=== PATIENT | female | born 1975 | race American Indian/Alaskan Native ===

== ENCOUNTER 2016-07-31 15:17 | Inpatient (IN) | payer MEDICARE, OTHER ==
[2016-07-31 15:18] VITALS: BMI 13.2
[2016-07-31] MEDS ORDERED: HYDROmorphone 1 mg/ml ISec IVP STA (16:11)
[2016-07-31] MEDS ORDERED: HYDROmorphone 1 mg/ml ISec ONE (16:15)
[2016-07-31 16:19] LABS: BASO # 0.1 K/uL (0.0-0.2); BASO % 0.6 % (0.0-2.0); EOS # 0.8 K/uL (0.0-0.7); EOS % 6.5 % (0.0-4.0); HEMATOCRIT 36.4 % (34.0-47.0); LYMPH # 0.9 K/uL (1.0-4.3); LYMPH % 7.4 % (20.0-40.0); MEAN CELL VOLUME 94.6 fL (81.0-99.0); MEAN CORPUSCULAR HEMOGLOBIN 30.5 pg (27.0-31.0); MEAN CORPUSCULAR HGB CONC 32.2 g/dL (33.0-37.0); MEAN PLATELET VOLUME 9.6 fL (7.2-11.7); MONO # 0.7 K/uL (0.0-0.8); MONO % 5.8 % (0.0-10.0); PLATELET COUNT 136 K/uL (130-400); RED CELL DISTRIBUTION WIDTH 17.2 % (11.5-14.5); WHITE BLOOD COUNT 11.8 K/uL (4.8-10.8)
[2016-07-31 16:29] LABS: TOTAL PROTEIN 8.6 g/dL (6.3-8.3)
[2016-07-31 16:30] LABS: ALB/GLOB RATIO 1.1 (1.0-2.1); CALCIUM 10.2 mg/dl (8.6-10.4)
[2016-07-31 16:38] LABS: POTASSIUM 6.3 mmol/L (3.6-5.2)
[2016-07-31] MEDS ORDERED: (Novolin R) Insulin Human Regular 100 units/ml vial IV STA (16:45)
[2016-07-31] MEDS ORDERED: Dextrose 50% SYRINGE Inj (50 ml) IVP STA (16:46)
[2016-07-31] MEDS ORDERED: Sodium Bicarbonate (8.4%) 50 Meq Syringe IVP STA (16:47)
[2016-07-31 17:00] LABS: BASOPHIL 1 % (0-2); EOSINOPHIL 6 % (0-4); NEUTROPHIL 83 % (50-75); TOTAL CELLS COUNTED 100
[2016-07-31] MEDS ORDERED: (Novolin R) Insulin Human Regular 100 units/ml vial ONE (17:07)
[2016-07-31] MEDS ORDERED: Dextrose 50% SYRINGE Inj (50 ml) ONE (17:08)
[2016-07-31] MEDS ORDERED: Sodium Bicarbonate (8.4%) 50 Meq Syringe ONE ×2 (17:08)
[2016-07-31] MEDS ORDERED: Calcium Gluconate 4.65 mEq/10 ml Inj IVP STA (17:22)
--- NOTE | 2016-07-31 17:30 | C.PDOC ---
Time Seen by Provider: 07/31/16 15:56 Chief Complaint (Nursing): Abdominal Pain History Per: Patient Onset/Duration Of Symptoms: Days (3) Current Symptoms Are (Timing): Still Present Severity: Moderate Location Of Pain/Discomfort: Diffuse Quality Of Discomfort: Unable To Describe Associated Symptoms: Nausea, Vomiting, Diarrhea Alleviating Factors: None Additional History Per: Prior Records Past Medical History Reviewed: Historical Data, Nursing Documentation, Vital Signs Vital Signs: Last Vital Signs Temp 97.8 F 07/31/16 15:41 Pulse 83 07/31/16 15:41 Resp 21 07/31/16 15:41 BP 183/96 H 07/31/16 15:41 Pulse Ox 100 07/31/16 15:41 - Medical History PMH: Anemia, Depression, Diabetes, Gastritis (diabetic gastroparesis), HTN, Hypercholesterolemia, Pneumonia, End Stage Renal Disease, Chronic Kidney Disease Surgical History: Cholecystectomy - [facility] Procedures BONE BIOPSY NEC (04/07/13) CATARAC PHACOEMULS/ASPIR (09/23/14) CONTRAST ARTERIOGRAM NEC (07/17/13) CONTRAST ARTERIOGRAM-LEG (04/07/13) DIALYSIS ARTERIOVENOSTOM (04/07/13) ESOPHAGOGASTRODUODENOSCOPY [EGD] W/CLOSED BIOPSY (09/19/13) EXCIS DEBRIDE OF WOUND, INFECT, OR BURN (07/17/13) EXCISION OF STOMACH, ENDO, DIAGN (07/09/16) EXCISION OF STOMACH, PYLORUS, ENDO, DIAGN (03/14/15) EXTRACTION OF LEFT LOWER LEG SKIN, EXTERNAL APPROACH (06/16/16) HEMODIALYSIS (01/01/15) INCIS W REM OF FORIEGN BODY OR DEV FROM SKIN & SUBCUT TISSUE (05/27/13) INDIVID PSYCHOTHERAP NEC (04/20/13) INJECT/INFUSE NEC (11/09/13) INSERT LENS AT CATAR EXT (09/23/14) INSPECTION OF UPPER INTESTINAL TRACT, ENDO (03/10/16) OCCUPATIONAL THERAPY (04/30/13) OTHER GROUP THERAPY (04/20/13) OTHER SKIN & SUBQ I D (07/17/13) PERFORMANCE OF URINARY FILTRATION, MULTIPLE (07/09/16) PERFORMANCE OF URINARY FILTRATION, SINGLE (03/29/16) PHYSICAL THERAPY NEC (04/30/13) TRANSFUSE NONAUT RED BLOOD CELLS IN PERIPH VEIN, PERC (06/10/15) ULTRASONOGRAPHY OF RIGHT AND LEFT HEART, TRANSESOPHAGEAL (06/19/15) Family History: States: Diabetes - Social History Hx Tobacco Use: No Hx Alcohol Use: No Hx Substance Use: No - Immunization History Hx Tetanus Toxoid Vaccination: Yes Hx Influenza Vaccination: Yes Hx Pneumococcal Vaccination: Yes Review Of Systems Except As Marked, All Systems Reviewed And Found Negative. Constitutional: Negative for: Fever Cardiovascular: Negative for: Chest Pain Gastrointestinal: Positive for: Nausea, Vomiting, Abdominal Pain, Diarrhea Musculoskeletal: Negative for: Neck Pain Skin: Negative for: Rash Neurological: Negative for: Weakness, Numbness, Seizures Physical Exam - Physical Exam Appears: Chronically Ill, Other (Uncomfortable) Skin: Warm, Dry Head: Atraumatic Eye(s): bilateral: PERRL, EOMI Neck: Normal ROM, Supple Cardiovascular: Rhythm Regular Respiratory: Normal Breath Sounds, No Accessory Muscle Use Gastrointestinal/Abdominal: Soft, Tenderness (nonspecific), No Distention Extremity: Normal ROM Neurological/Psych: Oriented x3, Normal Motor, Normal Sensation ED Course And Treatment - Laboratory Results Result Diagrams: 07/31/16 16:15 07/31/16 16:15 Lab Interpretation: Abnormal Interpretation Of Abnormal: Renal failure with hyperkalemia. ECG: Interpreted By Me, Viewed By Me ECG Rhythm: Sinus Rhythm, Nonspecific Changes ECG Interpretation: Abnormal Rate From EC O2 Sat by Pulse Oximetry: 100 Pulse Ox Interpretation: Normal - Physician Consult Information Physician Contacted: Denisha Orellana Outcome Of Conversation: She will dialyze pt today. Progress - Interventions Interventions:: Observation - Medications Administered Intravenous: Antiemetic, Opiate, Other (Ca. D50. Insulin.) - Data Reviewed Data Reviewed: Lab, EKG, Old records - Patient Status Patient status: Partially improved - Critical Care Citical Care: Excluding Proc Time Critical Care Time: 45 minutes - Continuity of Care Discussed patient case with:: Patient, ED Nurse, PMD Discussed pt. case with desktop support consultant/specialty: Nephrology - Patient Plan Patient Plan: Admission, Telemetry Disposition Discussed With : Sal Gamez Comment: He accepted pt on his service. Doctor Will See Patient In The: Hospital Counseled Patient/Family Regarding: Studies Performed, Diagnosis - Disposition Disposition: HOSPITALIZED Disposition Time: 17:34 Condition: GUARDED - Clinical Impression Clinical Impression: ESRD needing dialysis, Generalized abdominal pain, Nausea & vomiting, Hyperkalemia
[2016-07-31] MEDS: HYDROmorphone 1 mg/ml ISec IVP PRN (22:14)
[2016-07-31] MEDS ORDERED: Dextrose 50% SYRINGE Inj (50 ml) IV STA (22:31)
[2016-08-01] MEDS: HYDROmorphone 1 mg/ml ISec IVP PRN ×5 (02:28→21:06)
[2016-08-01] MEDS: Nitroglycerin 2% Ointment Foilpak UD TOP PRN ×2 (10:11→18:25)
--- NOTE | 2016-08-01 12:04 | CP.PCM.CON ---
History of Present Illness - History of Present Illness History of Present Illness: 40 y/o female with ESRD on maintenance HD, every MWF, HTN, IDDM with retinopathy , neuropathy,gastroparesis chronic heel ulcer presented to ER last evening for c /o abdominal pain, N & V Pt had missed her scheduled dialysis because she did not feel well & came to [facility] Recieved dilysis last pm in the hospital Past Patient History - Infectious Disease Hx of Infectious Diseases: None - Past Medical History & Family History Past Medical History?: Yes - Past Social History Smoking Status: Former Smoker - CARDIAC Hx Hypercholesterolemia: Yes Hx Hypertension: Yes - PULMONARY Hx Pneumonia: Yes - HEENT Hx HEENT Problems: Yes Hx Cataracts: Yes (09/23/14 left) - RENAL Date of Last Dialysis Treatment: 07/31/16 - ENDOCRINE/METABOLIC Hx Diabetes Mellitus Type 2: Yes (neuropathy) - HEMATOLOGICAL/ONCOLOGICAL Hx Anemia: Yes - INTEGUMENTARY Hx Dermatological Problems: Yes Other/Comment: right great toe amputation - MUSCULOSKELETAL/RHEUMATOLOGICAL Hx Falls: No - GASTROINTESTINAL Hx Gastritis: Yes (diabetic gastroparesis) - GENITOURINARY/GYNECOLOGICAL Hx Genitourinary Disorders: Yes Other/Comment: renal failure - PSYCHIATRIC Hx Substance Use: No - SURGICAL HISTORY Hx Cholecystectomy: Yes - ANESTHESIA Hx Anesthesia: Yes Hx Anesthesia Reactions: No Hx Malignant Hyperthermia: No Meds Allergies/Adverse Reactions: Allergies Allergy/AdvReac Type Severity Reaction Status Date / Time ketorolac tromethamine Allergy Verified 07/31/16 15:29 [From Toradol] morphine Allergy Verified 07/31/16 15:29 tramadol Allergy Verified 07/31/16 15:29 - Medications Medications: Current Medications Carvedilol (Coreg) 12.5 mg PO BID [facility] Last Admin: 08/01/16 10:07 Dose: 12.5 mg Clonidine HCl (Catapres-Tts3 0.3 Mg/24 Hr) 1 patch TD Q7D@1000 [facility] Fentanyl (Duragesic) 1 patch TD Q72H [facility] Last Admin: 07/31/16 22:15 Dose: 1 patch Hydralazine HCl (Apresoline) 100 mg PO Q8 [facility] Last Admin: 08/01/16 06:30 Dose: 100 mg Hydromorphone HCl (Dilaudid) 1 mg IVP Q4H PRN PRN Reason: Pain, moderate (4-7) Last Admin: 08/01/16 10:43 Dose: 1 mg Metoclopramide HCl (Reglan) 5 mg IVP TIDAC [facility] Last Admin: 08/01/16 07:56 Dose: 5 mg Nitroglycerin (Nitro-Bid 2% Oint) 1 ea TOP Q6 PRN PRN Reason: Heart rate Last Admin: 08/01/16 10:11 Dose: 1 ea Ondansetron HCl (Zofran Inj) 4 mg IVP Q8 PRN PRN Reason: Nausea/Vomiting Last Admin: 08/01/16 10:10 Dose: 4 mg Pantoprazole Sodium (Protonix Inj) 40 mg IVP DAILY [facility] Last Admin: 08/01/16 10:06 Dose: 40 mg Physical Exam - Constitutional Appears: Non-toxic - Head Exam Head Exam: ATRAUMATIC, NORMOCEPHALIC - Eye Exam Additional comments: No icterus - ENT Exam ENT Exam: Mucous Membranes Dry - Neck Exam Additional comments: supple - Respiratory Exam Respiratory Exam: NORMAL BREATHING PATTERN Additional comments: Lungs clear - Cardiovascular Exam Cardiovascular Exam: REGULAR RHYTHM - GI/Abdominal Exam GI & Abdominal Exam: Soft - Extremities Exam Additional comments: No edema Results - Vital Signs Recent Vital Signs: Last Vital Signs Temp 97.6 F 08/01/16 08:00 Pulse 75 08/01/16 08:00 Resp 16 08/01/16 08:00 BP 188/95 H 08/01/16 10:07 Pulse Ox 100 08/01/16 08:00 - Labs Result Diagrams: 07/31/16 16:15 07/31/16 16:15 Labs: Laboratory Results - last 24 hr 07/31/16 07/31/16 08/01/16 22:25 23:15 07:26 POC Glucose (mg/dL) 55 L 139 H 84 08/01/16 11:39 POC Glucose (mg/dL) 100 Assessment & Plan - Assessment and Plan (Free Text) Assessment: ESRD HTN Abdominal pain IDDM Plan: Continue dialysis every MWF BP is better today
[2016-08-02] MEDS: Nitroglycerin 2% Ointment Foilpak UD TOP PRN ×3 (00:26→12:13)
[2016-08-02] MEDS: HYDROmorphone 1 mg/ml ISec IVP PRN ×6 (02:00→22:33)
--- NOTE | 2016-08-02 09:46 | RAD ---
HISTORY: PICC Line Placement COMPARISON: Comparison chest 07/17/2016. FINDINGS: LUNGS: Interval placement right-sided PICC line with tip in the SVC. . Previously noted mild venous congestion with improved. Patchy opacity in the left lung base also somewhat improved. PLEURA: No significant pleural effusion identified, no pneumothorax apparent. CARDIOVASCULAR: Heart size remains upper limits of normal/borderline enlarged. OSSEOUS STRUCTURES: No significant abnormalities. VISUALIZED UPPER ABDOMEN: Normal. OTHER FINDINGS: None. IMPRESSION: Interval placement right-sided PICC line. Improved vascular congestion. Improved left lower lobe patchy opacity.
[2016-08-02 10:55] LABS: BASO # 0.1 K/uL (0.0-0.2); LYMPH # 1.1 K/uL (1.0-4.3); MONO # 0.5 K/uL (0.0-0.8)
[2016-08-02 11:00] LABS: POTASSIUM 4.8 mmol/L (3.6-5.2)
[2016-08-02 11:02] LABS: BASO % 1.4 % (0.0-2.0); EOS # 0.8 K/uL (0.0-0.7); EOS % 12.3 % (0.0-4.0); HEMATOCRIT 34.8 % (34.0-47.0); LYMPH % 17.5 % (20.0-40.0); MEAN CELL VOLUME 94.9 fL (81.0-99.0); MEAN CORPUSCULAR HEMOGLOBIN 30.7 pg (27.0-31.0); MEAN CORPUSCULAR HGB CONC 32.3 g/dL (33.0-37.0); MEAN PLATELET VOLUME 9.5 fL (7.2-11.7); MONO % 7.2 % (0.0-10.0); NRBC % 0.3 % (0.0-2.0); WHITE BLOOD COUNT 6.3 K/uL (4.8-10.8)
[2016-08-02 11:04] LABS: CALCIUM 9.4 mg/dl (8.6-10.4)
[2016-08-02] MEDS ORDERED: Enalaprilat 2.5 MG/2 ML IV ONE ×2 (11:15)
[2016-08-02] MEDS ORDERED: Enalaprilat 2.5 MG/2 ML ONE (11:38)
--- NOTE | 2016-08-02 18:42 | CP.PCM.PN ---
Subjective - Date & Time of Evaluation Date of Evaluation: 08/02/16 Time of Evaluation: 06:40 - Subjective Subjective: Sedated. NAD noted Objective - Vital Signs/Intake and Output Vital Signs (last 24 hours): Temp Pulse Resp BP Pulse Ox 98.9 F 75 11 L 191/58 H 97 08/02/16 16:00 08/02/16 16:00 08/02/16 16:00 08/02/16 17:03 08/02/16 16:00 Intake and Output: 08/02/16 08/02/16 06:59 18:59 Intake Total 250 5 Balance 250 5 - Medications Medications: Current Medications Carvedilol (Coreg) 12.5 mg PO BID [facility] Last Admin: 08/02/16 17:03 Dose: 12.5 mg Clonidine HCl (Catapres-Tts3 0.3 Mg/24 Hr) 1 patch TD Q7D@1000 [facility] Enalaprilat (Vasotec) 1.25 mg IV Q8 [facility] Fentanyl (Duragesic) 1 patch TD Q72H [facility] Last Admin: 07/31/16 22:15 Dose: 1 patch Heparin Sodium (Porcine) (Heparin) 5,000 units SC Q8 [facility] Last Admin: 08/02/16 14:40 Dose: 5,000 units Hydralazine HCl (Apresoline) 100 mg PO Q8 [facility] Last Admin: 08/02/16 14:40 Dose: 100 mg Hydromorphone HCl (Dilaudid) 1 mg IVP Q4H PRN PRN Reason: Pain, moderate (4-7) Last Admin: 08/02/16 14:42 Dose: 1 mg Metoclopramide HCl (Reglan) 5 mg IVP TIDAC [facility] Last Admin: 08/02/16 17:02 Dose: 5 mg Nitroglycerin (Nitro-Bid 2% Oint) 1 ea TOP Q6 PRN PRN Reason: Heart rate Last Admin: 08/02/16 12:13 Dose: 1 ea Ondansetron HCl (Zofran Inj) 4 mg IVP Q8 PRN PRN Reason: Nausea/Vomiting Last Admin: 08/02/16 18:20 Dose: 4 mg Pantoprazole Sodium (Protonix Inj) 40 mg IVP DAILY [facility] Last Admin: 08/02/16 09:46 Dose: 40 mg - Labs Labs: 08/02/16 10:49 08/02/16 10:49 - Respiratory Exam Additional comments: Lungs clear - Cardiovascular Exam Cardiovascular Exam: REGULAR RHYTHM - Extremities Exam Additional comments: No edema Assessment and Plan - Assessment and Plan (Free Text) Assessment: ESRD on HD HTN. BP remains high Abdominal pain IDDM Plan: Dialysis tolerated well UF 2.5 Kg Monitor BP .on IV vasotec
[2016-08-02 20:51] LABS: AMYLASE 69 U/L (30-110)
[2016-08-02] MEDS ORDERED: Enalaprilat 2.5 MG/2 ML IV SCH (22:00)
--- NOTE | 2016-08-02 22:07 | CP.PCM.HP ---
History of Present Illness - History of Present Illness History of Present Illness: 40 y/o female with ESRD on maintenance HD, every MWF, HTN, IDDM with retinopathy , neuropathy,gastroparesis chronic heel ulcer presented to ER last evening for c /o abdominal pain, N & V Pt had missed her scheduled dialysis because she did not feel well & came to [facility] Recieved dilysis last pm in the hospital Present on Admission - Present on Admission Any Indicators Present on Admission: No Review of Systems - Review of Systems Systems not reviewed;Unavailable: Acuity of Condition - Constitutional Constitutional: Fatigue, Lethargy, Malaise - EENT Eyes: absent: As Per HPI, Blind Spots, Blurred Vision, Change in Vision, Decreased Night Vision, Diplopia, Discharge, Dry Eye, Exophthalmos, Floaters, Irritation, Itchy Eyes, Loss of Peripheral Vision, Pain, Photophobia, Requires Corrective Lenses, Sees Flashes, Spots in Vision, Tunnel Vision, Other Visual Disturbances, Loss of Vision, Other - Cardiovascular Cardiovascular: absent: As Per HPI, Acrocyanosis, Chest Pain, Chest Pain at Rest , Chest Pain with Activity, Claudication, Diaphoresis, Dyspnea, Dyspnea on Exertion, Edema, Irregular Heart Rhythm, Pain Radiating to Arm/Neck/Jaw, Leg Edema, Leg Ulcers, Lightheadedness, Orthopnea, Palpitations, Paroxysmal Nocturnal Dyspnea, Pedal Edema, Radiating Pain, Rapid Heart Rate, Slow Heart Rate, Syncope, Other - Respiratory Respiratory: absent: As Per HPI, Cough, Dyspnea, Hemoptysis, Dyspnea on Exertion , Wheezing, Snoring, Stridor, Pain on Inspiration, Chest Congestion, Excessive Mucous Production, Change in Mucous Color, Pain with Coughing, Other - Gastrointestinal Gastrointestinal: Abdominal Pain, Nausea, Vomiting - Genitourinary Genitourinary: absent: As Per HPI, Change in Urinary Stream, Difficulty Urinating, Dysuria, Flank Pain, Hematuria, Pyuria, Nocturia, Urinary Incontinence, Urinary Frequency, Urinary Hesitance, Urinary Urgency, Voiding Freq/Small Amts, Freq UTI, Hx Renal/Bladder Calculi, Hx /Renal Surgery, Bladder Distension, Other Additional comments: on hemodialysis due to ESRD - Musculoskeletal Musculoskeletal: Abnormal Gait, Back Pain, Stiffness Past Patient History - Infectious Disease Hx of Infectious Diseases: None - Past Medical History & Family History Past Medical History?: Yes - Past Social History Smoking Status: Former Smoker - CARDIAC Hx Hypercholesterolemia: Yes Hx Hypertension: Yes - PULMONARY Hx Pneumonia: Yes - HEENT Hx HEENT Problems: Yes Hx Cataracts: Yes (09/23/14 left) - RENAL Date of Last Dialysis Treatment: 07/31/16 - ENDOCRINE/METABOLIC Hx Diabetes Mellitus Type 2: Yes (neuropathy) - HEMATOLOGICAL/ONCOLOGICAL Hx Anemia: Yes - INTEGUMENTARY Hx Dermatological Problems: Yes Other/Comment: right great toe amputation - MUSCULOSKELETAL/RHEUMATOLOGICAL Hx Falls: No - GASTROINTESTINAL Hx Gastritis: Yes (diabetic gastroparesis) - GENITOURINARY/GYNECOLOGICAL Hx Genitourinary Disorders: Yes Other/Comment: renal failure - PSYCHIATRIC Hx Substance Use: No - SURGICAL HISTORY Hx Cholecystectomy: Yes - ANESTHESIA Hx Anesthesia: Yes Hx Anesthesia Reactions: No Hx Malignant Hyperthermia: No Meds Home Medications: Home Medication List Medication Instructions Recorded Confirmed Type DiphenhydrAMINE [Benadryl] 25 mg PO Q8 PRN #30 cap 08/09/16 08/14/16 Rx Allergies/Adverse Reactions: Allergies Allergy/AdvReac Type Severity Reaction Status Date / Time ketorolac tromethamine Allergy Verified 08/14/16 20:21 [From Toradol] morphine Allergy Verified 08/14/16 20:21 tramadol Allergy Verified 08/14/16 20:21 Physical Exam - Constitutional Appears: No Acute Distress, Chronically Ill - Head Exam Head Exam: ATRAUMATIC, NORMAL INSPECTION, NORMOCEPHALIC - Eye Exam Eye Exam: EOMI, Normal appearance, PERRL Pupil Exam: NORMAL ACCOMODATION, PERRL - Respiratory Exam Respiratory Exam: Clear to Auscultation Bilateral, NORMAL BREATHING PATTERN - Cardiovascular Exam Cardiovascular Exam: REGULAR RHYTHM - GI/Abdominal Exam GI & Abdominal Exam: Normal Bowel Sounds, Soft, Tenderness Results - Vital Signs Recent Vital Signs: Last Vital Signs Temp 98.9 F 08/02/16 16:00 Pulse 76 08/02/16 19:00 Resp 12 08/02/16 19:00 BP 172/54 H 08/02/16 19:00 Pulse Ox 97 08/02/16 19:00 - Labs Result Diagrams: 08/09/16 10:02 08/09/16 10:02 Labs: Laboratory Results - last 24 hr 08/02/16 08/02/16 08/02/16 07:25 08:37 10:49 WBC 6.3 RBC 3.67 L Hgb 11.3 Hct 34.8 MCV 94.9 MCH 30.7 MCHC 32.3 L RDW 17.0 H Plt Count 102 L D MPV 9.5 Neut % (Auto) 61.6 Lymph % (Auto) 17.5 L [place] % (Auto) 7.2 Eos % (Auto) 12.3 H Baso % (Auto) 1.4 Neut # 3.9 Lymph # 1.1 [place] # 0.5 Eos # 0.8 H Baso # 0.1 Differential Comment Sodium 137 Potassium 4.8 Chloride 95 L Carbon Dioxide 27 Anion Gap 20 BUN 33 H Creatinine 7.4 H* Est GFR ( Amer) 7 Est GFR (Non-Af Amer) 6 POC Glucose (mg/dL) 60 L 94 Random Glucose 90 Calcium 9.4 Amylase Lipase 08/02/16 08/02/16 08/02/16 12:02 16:08 17:52 WBC RBC Hgb Hct MCV MCH MCHC RDW Plt Count MPV Neut % (Auto) Lymph % (Auto) [place] % (Auto) Eos % (Auto) Baso % (Auto) Neut # Lymph # [place] # Eos # Baso # Differential Comment Sodium Potassium Chloride Carbon Dioxide Anion Gap BUN Creatinine Est GFR ( Amer) Est GFR (Non-Af Amer) POC Glucose (mg/dL) 80 67 77 Random Glucose Calcium Amylase Lipase 08/02/16 08/02/16 20:36 21:14 WBC RBC Hgb Hct MCV MCH MCHC RDW Plt Count MPV Neut % (Auto) Lymph % (Auto) [place] % (Auto) Eos % (Auto) Baso % (Auto) Neut # Lymph # [place] # Eos # Baso # Differential Comment Sodium Potassium Chloride Carbon Dioxide Anion Gap BUN Creatinine Est GFR ( Amer) Est GFR (Non-Af Amer) POC Glucose (mg/dL) 62 L Random Glucose Calcium Amylase 69 Lipase 25 Assessment & Plan (1) Abdominal pain Status: Acute (2) ESRD needing dialysis Status: Acute (3) Nausea Status: Acute (4) Diabetes Status: Chronic (5) Diabetic gastroparesis Status: Resolved (6) Uncontrolled hypertension Status: Resolved (7) Diabetic foot ulcer Status: Acute - Assessment and Plan (Free Text) Plan: pt blood sugars and B.P are fluctuating,for PICC line, Iv fluids, protonix, reglan On HD
--- NOTE | 2016-08-02 22:12 | CP.PCM.PN ---
Subjective - Date & Time of Evaluation Date of Evaluation: 08/02/16 Time of Evaluation: 13:42 - Subjective Subjective: Pt seen and examined, still c/o being nauseous , denies any cough, chest pain, sore throat, pt blood sugars and B.P are fluctuating,for PICC line, Iv fluids, protonix, reglan On HD Objective - Vital Signs/Intake and Output Vital Signs (last 24 hours): Temp Pulse Resp BP Pulse Ox 98.9 F 76 12 172/54 H 97 08/02/16 16:00 08/02/16 19:00 08/02/16 19:00 08/02/16 19:00 08/02/16 19:00 Intake and Output: 08/02/16 08/03/16 18:59 06:59 Intake Total 125 Output Total 100 Balance 25 - Medications Medications: Current Medications Carvedilol (Coreg) 12.5 mg PO BID [facility] Last Admin: 08/02/16 17:03 Dose: 12.5 mg Clonidine HCl (Catapres-Tts3 0.3 Mg/24 Hr) 1 patch TD Q7D@1000 [facility] Enalaprilat (Vasotec) 2.5 mg IV Q6 [facility] Fentanyl (Duragesic) 1 patch TD Q72H [facility] Last Admin: 07/31/16 22:15 Dose: 1 patch Heparin Sodium (Porcine) (Heparin) 5,000 units SC Q8 [facility] Last Admin: 08/02/16 14:40 Dose: 5,000 units Hydralazine HCl (Apresoline) 100 mg PO Q8 [facility] Last Admin: 08/02/16 14:40 Dose: 100 mg Hydromorphone HCl (Dilaudid) 1 mg IVP Q4H PRN PRN Reason: Pain, moderate (4-7) Last Admin: 08/02/16 18:46 Dose: 1 mg Metoclopramide HCl (Reglan) 5 mg IVP TIDAC [facility] Last Admin: 08/02/16 17:02 Dose: 5 mg Nitroglycerin (Nitro-Bid 2% Oint) 1 ea TOP Q6 PRN PRN Reason: Heart rate Last Admin: 08/02/16 12:13 Dose: 1 ea Ondansetron HCl (Zofran Inj) 4 mg IVP Q4 PRN PRN Reason: Nausea/Vomiting Pantoprazole Sodium (Protonix Inj) 40 mg IVP DAILY [facility] Last Admin: 08/02/16 09:46 Dose: 40 mg - Labs Labs: 08/02/16 10:49 08/02/16 10:49 - Constitutional Appears: No Acute Distress - Head Exam Head Exam: ATRAUMATIC, NORMAL INSPECTION, NORMOCEPHALIC - Eye Exam Eye Exam: EOMI, Normal appearance, PERRL Pupil Exam: NORMAL ACCOMODATION, PERRL - Respiratory Exam Respiratory Exam: Clear to Ausculation Bilateral, NORMAL BREATHING PATTERN - Cardiovascular Exam Cardiovascular Exam: REGULAR RHYTHM, +S1, +S2. absent: Murmur - Neurological Exam Neurological Exam: Alert, Awake, CN II-XII Intact, Normal Gait, Oriented x3 - Psychiatric Exam Psychiatric exam: Normal Affect, Normal Mood Assessment and Plan (1) Abdominal pain Status: Acute (2) ESRD needing dialysis Status: Acute (3) Nausea Status: Acute (4) Diabetes Status: Chronic (5) Diabetic gastroparesis Status: Resolved (6) Chronic ulcer of left foot Status: Acute - Assessment and Plan (Free Text) Plan: pt blood sugars and B.P are fluctuating,for PICC line, Iv fluids, protonix, reglan On HD
[2016-08-03] MEDS: Enalaprilat 2.5 MG/2 ML IV SCH ×4 (00:52→17:38)
[2016-08-03] MEDS: HYDROmorphone 1 mg/ml ISec IVP PRN ×5 (02:48→19:52)
[2016-08-03] MEDS: Nitroglycerin 2% Ointment Foilpak UD TOP PRN ×2 (08:34→15:20)
[2016-08-03] MEDS ORDERED: HYDROmorphone 1 mg/ml ISec IVP STA (09:02)
--- NOTE | 2016-08-03 09:14 | PN ---
DATE: 08/03/2016 LOCATION: ICU 16. This is a 40-year-old female seen and examined for GI consultation on 08/02/16 as reported and reques donte by the admitting medical team. The patient is fully examined again today with episode of abdomin al pain and recurrent nausea and vomiting, not controlled well with Zofran 4 mg IV. No reported active bleeding at this point. The entire chart is reviewed, including but not limited to the most recent lab and radiology study re sults, current and the previous medication list, current and the previous medical events, and the rudi e was discussed at length with the staff in the intensive care unit. Most recent blood glucose level reported to be 71, and the patient still has normal hemoglobin and hematocrit, but thrombocytopenia of 102 with increased BUN to 33 and increased creatinine 7.4 compatible with the patient's known hist ory of renal failure. Initial reported lipase and amylase levels were normal. Chest CAT scan yesterday done - indicative of PICC line in place with decreased vascular congestion, as well as improvement of the left lower lobe patchy opacity. PHYSICAL EXAMINATION: GENERAL: A 40-year-old female, awake, alert, oriented. VITAL SIGNS: Afebrile with pulse of 80, respiratory rate 18-20 with blood pressure of 200/58. HEENT: Showed pale, dry mucoid membrane. Nonicteric sclerae. LUNGS: Few scattered crepitations, decreased air entry at bases. HEART: Positive S1 and S2. ABDOMEN: Soft with slight distention and generalized tenderness. No mass or organomegaly. No rebou nd tenderness or guarding. EXTREMITIES: With mild lower extremities edematous changes. No clubbing or cyanosis. NEUROLOGIC: No reported new neurologic deficits, sensory or motor. IMPRESSION: 1. Reexacerbation of peptic ulcer disease with evidence of diabetic gastroparesis. 2. Poorly controlled hypertension. 3. Known history of hyperlipidemia, diabetes mellitus, and depression, as well as anxiety syndrome. 4. Pneumonia by recent history. 5. Known history of end-stage renal disease on hemodialysis. 6. Thrombocytopenia of unclear etiology that could be related to heparin intake during hemodialysis. SUGGESTION: 1. I agree with your plan. 2. Abdominal ultrasound with attention to the biliary tree and the pancreas. 3. Reglan IV. Increase the dose up to even 20 mg IV push q. 6 hours as needed. Otherwise, adding e rythromycin IV should be kept in mind. 4. It has to be mentioned that the patient recently had upper endoscopy, and no need for repeat endo scopic evaluation of the GI tract in the meantime. Case is to be discussed with the admitting MD. Colleen Peraza MD cc: 14 TT: 08/03/2016 09:13:47 Confirmation # [id number] Dictation # [id number]
--- NOTE | 2016-08-03 11:54 | CP.PCM.PN ---
Subjective - Date & Time of Evaluation Date of Evaluation: 08/03/16 Time of Evaluation: 11:30 - Subjective Subjective: Sedated No acute distress Objective - Vital Signs/Intake and Output Vital Signs (last 24 hours): Temp Pulse Resp BP Pulse Ox 97.5 F L 79 15 194/57 H 100 08/03/16 08:00 08/03/16 08:00 08/03/16 08:00 08/03/16 10:05 08/03/16 08:00 Intake and Output: 08/03/16 08/03/16 06:59 18:59 Intake Total 360 Output Total 50 Balance 310 - Medications Medications: Current Medications Carvedilol (Coreg) 12.5 mg PO BID [facility] Last Admin: 08/03/16 10:05 Dose: 12.5 mg Clonidine HCl (Catapres-Tts3 0.3 Mg/24 Hr) 1 patch TD Q7D@1000 [facility] Enalaprilat (Vasotec) 2.5 mg IV Q6 [facility] Last Admin: 08/03/16 06:36 Dose: 2.5 mg Fentanyl (Duragesic) 1 patch TD Q72H [facility] Last Admin: 07/31/16 22:15 Dose: 1 patch Heparin Sodium (Porcine) (Heparin) 5,000 units SC Q8 [facility] Last Admin: 08/03/16 06:38 Dose: 5,000 units Hydralazine HCl (Apresoline) 100 mg PO Q8 [facility] Last Admin: 08/03/16 06:38 Dose: 100 mg Hydromorphone HCl (Dilaudid) 1 mg IVP Q4H PRN PRN Reason: Pain, moderate (4-7) Last Admin: 08/03/16 06:37 Dose: 1 mg Metoclopramide HCl (Reglan) 10 mg IVP ACHS [facility] Nitroglycerin (Nitro-Bid 2% Oint) 1 ea TOP Q6 PRN PRN Reason: Heart rate Last Admin: 08/03/16 08:34 Dose: 1 ea Ondansetron HCl (Zofran Inj) 4 mg IVP Q4 PRN PRN Reason: Nausea/Vomiting Last Admin: 08/03/16 06:37 Dose: 4 mg Pantoprazole Sodium (Protonix Inj) 40 mg IVP DAILY [facility] Last Admin: 08/03/16 10:06 Dose: 40 mg - Labs Labs: 08/02/16 10:49 08/02/16 10:49 - Respiratory Exam Additional comments: Lungs clear - Cardiovascular Exam Cardiovascular Exam: REGULAR RHYTHM - Extremities Exam Additional comments: No edema Assessment and Plan - Assessment and Plan (Free Text) Assessment: ESRD HTN Abdominal pain IDDM Plan: BP remains high . Continue Vasotec 2.5 mg iv Continue Hd per schedule Labs stable
[2016-08-03] MEDS ORDERED: Dextrose 50% SYRINGE Inj (50 ml) ONE ×2 (11:58→14:00)
[2016-08-03] MEDS ORDERED: Dextrose 50% SYRINGE Inj (50 ml) IV STA (12:03)
--- NOTE | 2016-08-03 12:26 | CP.PCM.PN ---
Subjective - Date & Time of Evaluation Date of Evaluation: 08/03/16 Time of Evaluation: 12:00 - Subjective Subjective: Pt seen today, still vomiting an d feeling nauseous, and c/o abdominal pain , unable to tolerate liquid diet episodes of hypoglycemia noted BP uncontrolled Objective - Vital Signs/Intake and Output Vital Signs (last 24 hours): Temp Pulse Resp BP Pulse Ox 97.5 F L 79 15 192/135 H 100 08/03/16 08:00 08/03/16 08:00 08/03/16 08:00 08/03/16 12:01 08/03/16 08:00 Intake and Output: 08/03/16 08/03/16 06:59 18:59 Intake Total 360 Output Total 50 Balance 310 - Medications Medications: Current Medications Carvedilol (Coreg) 12.5 mg PO BID [facility] Last Admin: 08/03/16 10:05 Dose: 12.5 mg Clonidine HCl (Catapres-Tts3 0.3 Mg/24 Hr) 1 patch TD Q7D@1000 [facility] Enalaprilat (Vasotec) 2.5 mg IV Q6 [facility] Last Admin: 08/03/16 12:01 Dose: 2.5 mg Fentanyl (Duragesic) 1 patch TD Q72H [facility] Last Admin: 07/31/16 22:15 Dose: 1 patch Heparin Sodium (Porcine) (Heparin) 5,000 units SC Q8 [facility] Last Admin: 08/03/16 06:38 Dose: 5,000 units Hydralazine HCl (Apresoline) 10 mg IVP Q8 [facility] Hydromorphone HCl (Dilaudid) 1 mg IVP Q4H PRN PRN Reason: Pain, moderate (4-7) Last Admin: 08/03/16 12:01 Dose: 1 mg Dextrose (Dextrose 5% In Water 1000 Ml) 1,000 mls @ 30 mls/hr IV .Q24H [facility] Metoclopramide HCl (Reglan) 10 mg IVP ACHS [facility] Last Admin: 08/03/16 12:01 Dose: 10 mg Nitroglycerin (Nitro-Bid 2% Oint) 1 ea TOP Q6 PRN PRN Reason: Heart rate Last Admin: 08/03/16 08:34 Dose: 1 ea Ondansetron HCl (Zofran Inj) 4 mg IVP Q4 PRN PRN Reason: Nausea/Vomiting Last Admin: 08/03/16 06:37 Dose: 4 mg Pantoprazole Sodium (Protonix Inj) 40 mg IVP DAILY [facility] Last Admin: 08/03/16 10:06 Dose: 40 mg - Labs Labs: 08/02/16 10:49 08/02/16 10:49 Assessment and Plan - Assessment and Plan (Free Text) Assessment: A/P 40 yr old female admitted for intractable vomiting bs - fluctuating - multiple hypoglycemic episodes noted BP - uncontrolled will administer hydralizine 10 mg iv push now and convert po hydralazine to iv IVF WITH D5W STARTED at 50 ml/hr ( ok with Dr. Orellana ) to prevent hypoglycemic events will do CT head D/W Dr. Peraza, recommends to incr. Regaln dose atc The above plan discussed with Dr. Gamez
--- NOTE | 2016-08-03 14:24 | CT ---
PROCEDURE: CT HEAD WITHOUT CONTRAST. HISTORY: persistant vomiting and high Bp COMPARISON: None available. TECHNIQUE: Axial computed tomography images were obtained through the head/brain without intravenous contrast. Radiation dose: Total exam DLP = 1128 mGy-cm. FINDINGS: HEMORRHAGE: No intracranial hemorrhage. BRAIN: No mass effect or edema. Minimal chronic microvascular changes are seen. There is mild atrophy VENTRICLES: Unremarkable. No hydrocephalus. CALVARIUM: Unremarkable. PARANASAL SINUSES: Unremarkable as visualized. No significant inflammatory changes. MASTOID AIR CELLS: Unremarkable as visualized. No inflammatory changes. OTHER FINDINGS: None. IMPRESSION: No acute findings
--- NOTE | 2016-08-03 19:51 | CARD ---
APPROVED REPORT EKG Measurement Heart [id number] KS [id number] [id number] <Conclusion> Normal sinus rhythm Possible Left atrial enlargement Left axis deviation Pulmonary disease pattern Abnormal ECG
[2016-08-04] MEDS: Enalaprilat 2.5 MG/2 ML IV SCH ×4 (00:09→17:23)
[2016-08-04] MEDS: HYDROmorphone 1 mg/ml ISec IVP PRN ×5 (00:10→21:30)
[2016-08-04] MEDS: Nitroglycerin 2% Ointment Foilpak UD TOP PRN (07:38)
--- NOTE | 2016-08-04 11:24 | PN ---
DATE: 08/04/2016 LOCATION: 665, bed A. This is a 40-year-old female seen and examined in rounds without significant clinical changes, but ho wever, less abdominal pain and less episodes of complete vomiting but spitting her saliva out. No re ported active bleeding. The entire chart is reviewed including, but not limited to, the most recent lab and radiology study r esults, current and previous medication lists, current and the previous medical events with the lates t blood glucose level of 82. Case discussed at length with the staff on the floor. The patient is o ut of ICU with increased BUN and creatinine due to her renal failure. The patient had CAT scan of the head due to her clinical presentation indicative of no acute finding. PHYSICAL EXAMINATION: GENERAL: A 40-year-old female, awake, alert, oriented. VITAL SIGNS: Afebrile with pulse of 70, respiratory rate 20-22 with blood pressure of 190/72. HEENT: Showed pale, dry oral mucoid membrane. Nonicteric sclerae. LUNGS: A few scattered crepitations. Decreased air entry at bases. HEART: Positive S1 and S2. ABDOMEN: Soft with mild distention and mild generalized tenderness. No mass or organomegaly. No re bound tenderness or guarding. RECTAL: Positive tone. Vault is empty. EXTREMITIES: Without significant clubbing or cyanosis, but with edematous changes in the lower extre mities. NEUROLOGIC: No new reported neurological deficits, sensory or motor. IMPRESSION: 1. Reexacerbation of peptic ulcer disease. 2. Diabetic gastroparesis. 3. Renal failure. 4. Poorly controlled hypertension. 5. Known history of hyperlipidemia, depression, severe anxiety syndrome, pneumonia, recent history o f pneumonia. 6. End-stage renal disease, on hemodialysis. 7. Thrombocytopenia by recent history. SUGGESTION: 1. Continue current management. 2. Increase the dose of Reglan. 3. May start erythromycin IV. 4. The patient may need evaluation for possible pancreatic transplant. Colleen Peraza MD cc: 14 TT: 08/04/2016 11:23:33 Confirmation # [id number] Dictation # [id number]
--- NOTE | 2016-08-04 13:13 | CP.PCM.PN ---
Subjective - Date & Time of Evaluation Date of Evaluation: 08/04/16 Time of Evaluation: 10:00 - Subjective Subjective: Receiving dialysis Predialysis BP was 201/68 Stillvomiting Objective - Vital Signs/Intake and Output Vital Signs (last 24 hours): Temp Pulse Resp BP Pulse Ox 98 F 76 18 180/65 H 100 08/04/16 09:15 08/04/16 12:00 08/04/16 09:15 08/04/16 12:00 08/04/16 09:15 Intake and Output: 08/04/16 08/04/16 06:59 18:59 Intake Total 240 Balance 240 - Medications Medications: Current Medications Carvedilol (Coreg) 12.5 mg PO BID [facility] Last Admin: 08/03/16 17:39 Dose: 12.5 mg Clonidine HCl (Catapres-Tts3 0.3 Mg/24 Hr) 1 patch TD Q7D@1000 [facility] Enalaprilat (Vasotec) 2.5 mg IV Q6 [facility] Last Admin: 08/04/16 06:22 Dose: 2.5 mg Fentanyl (Duragesic) 1 patch TD Q72H [facility] Last Admin: 08/03/16 17:39 Dose: 1 patch Heparin Sodium (Porcine) (Heparin) 5,000 units SC Q8 [facility] Last Admin: 08/04/16 06:22 Dose: 5,000 units Hydralazine HCl (Apresoline) 10 mg IVP Q8 [facility] Last Admin: 08/04/16 06:23 Dose: 10 mg Hydromorphone HCl (Dilaudid) 1 mg IVP Q4H PRN PRN Reason: Pain, moderate (4-7) Last Admin: 08/04/16 04:18 Dose: 1 mg Dextrose (Dextrose 5% In Water 1000 Ml) 1,000 mls @ 30 mls/hr IV .Q24H [facility] Last Admin: 08/03/16 14:05 Dose: 30 mls/hr Metoclopramide HCl (Reglan) 10 mg IVP ACHS [facility] Last Admin: 08/04/16 07:35 Dose: 10 mg Nitroglycerin (Nitro-Bid 2% Oint) 1 ea TOP Q6 PRN PRN Reason: Heart rate Last Admin: 08/04/16 07:38 Dose: 1 ea Ondansetron HCl (Zofran Inj) 4 mg IVP Q4 PRN PRN Reason: Nausea/Vomiting Last Admin: 08/03/16 17:38 Dose: 4 mg Pantoprazole Sodium (Protonix Inj) 40 mg IVP DAILY [facility] Last Admin: 08/03/16 10:06 Dose: 40 mg - Labs Labs: 08/02/16 10:49 08/02/16 10:49 - Respiratory Exam Respiratory Exam: NORMAL BREATHING PATTERN - Cardiovascular Exam Cardiovascular Exam: REGULAR RHYTHM Assessment and Plan - Assessment and Plan (Free Text) Assessment: ESRD on HD Abdominal pain with N&V HTN currently managed with IV hydralazine,IV vasotec & nitropaste IDDM Plan: Continue HD per schedule UF as tolerated Monitor BP CT of head is negative
--- NOTE | 2016-08-04 23:45 | CP.PCM.PN ---
Subjective - Date & Time of Evaluation Date of Evaluation: 08/03/16 Time of Evaluation: 13:44 - Subjective Subjective: Pt seen today, still vomiting an d feeling nauseous, and c/o abdominal pain , unable to tolerate liquid diet episodes of hypoglycemia noted BP uncontrolled Objective - Vital Signs/Intake and Output Vital Signs (last 24 hours): Temp Pulse Resp BP Pulse Ox 99.3 F 79 20 156/78 H 100 08/04/16 16:00 08/04/16 16:00 08/04/16 16:00 08/04/16 17:23 08/04/16 16:00 - Medications Medications: Current Medications Carvedilol (Coreg) 12.5 mg PO BID [facility] Last Admin: 08/04/16 17:22 Dose: 12.5 mg Clonidine HCl (Catapres-Tts3 0.3 Mg/24 Hr) 1 patch TD Q7D@1000 [facility] Enalaprilat (Vasotec) 2.5 mg IV Q6 [facility] Last Admin: 08/04/16 17:23 Dose: 2.5 mg Fentanyl (Duragesic) 1 patch TD Q72H [facility] Last Admin: 08/03/16 17:39 Dose: 1 patch Heparin Sodium (Porcine) (Heparin) 5,000 units SC Q8 [facility] Last Admin: 08/04/16 21:31 Dose: 5,000 units Hydralazine HCl (Apresoline) 10 mg IVP Q8 [facility] Last Admin: 08/04/16 21:32 Dose: 10 mg Hydromorphone HCl (Dilaudid) 1 mg IVP Q4H PRN PRN Reason: Pain, moderate (4-7) Last Admin: 08/04/16 21:30 Dose: 1 mg Dextrose (Dextrose 5% In Water 1000 Ml) 1,000 mls @ 30 mls/hr IV .Q24H [facility] Last Admin: 08/03/16 14:05 Dose: 30 mls/hr Metoclopramide HCl (Reglan) 10 mg IVP ACHS [facility] Last Admin: 08/04/16 21:38 Dose: 10 mg Nitroglycerin (Nitro-Bid 2% Oint) 1 ea TOP Q6 PRN PRN Reason: Heart rate Last Admin: 08/04/16 07:38 Dose: 1 ea Ondansetron HCl (Zofran Inj) 4 mg IVP Q4 PRN PRN Reason: Nausea/Vomiting Last Admin: 08/03/16 17:38 Dose: 4 mg Pantoprazole Sodium (Protonix Inj) 40 mg IVP DAILY [facility] Last Admin: 08/04/16 13:21 Dose: 40 mg - Labs Labs: 08/02/16 10:49 08/02/16 10:49 - Constitutional Appears: No Acute Distress, Chronically Ill - Head Exam Head Exam: ATRAUMATIC, NORMAL INSPECTION, NORMOCEPHALIC - Eye Exam Eye Exam: EOMI, Normal appearance, PERRL Pupil Exam: NORMAL ACCOMODATION, PERRL - ENT Exam ENT Exam: Mucous Membranes Moist, Normal Exam - Respiratory Exam Respiratory Exam: Clear to Ausculation Bilateral, NORMAL BREATHING PATTERN - Cardiovascular Exam Cardiovascular Exam: REGULAR RHYTHM, +S1, +S2. absent: Murmur - GI/Abdominal Exam GI & Abdominal Exam: Tenderness, Normal Bowel Sounds Assessment and Plan (1) Abdominal pain Status: Acute (2) ESRD needing dialysis Status: Acute (3) Nausea Status: Acute (4) Diabetes Status: Chronic (5) Diabetic gastroparesis Status: Resolved (6) Uncontrolled hypertension Status: Resolved (7) Diabetic foot ulcer Status: Acute - Assessment and Plan (Free Text) Plan: continue current medications
--- NOTE | 2016-08-04 23:47 | CP.PCM.PN ---
Subjective - Date & Time of Evaluation Date of Evaluation: 08/04/16 Time of Evaluation: 13:44 - Subjective Subjective: Pt continues to have perssitant nausea, vomitting and abdominla discormfort in epigastric area despite reglan and liquid diet, pt denies any improvement, B.P still high Objective - Vital Signs/Intake and Output Vital Signs (last 24 hours): Temp Pulse Resp BP Pulse Ox 99.3 F 79 20 156/78 H 100 08/04/16 16:00 08/04/16 16:00 08/04/16 16:00 08/04/16 17:23 08/04/16 16:00 - Medications Medications: Current Medications Carvedilol (Coreg) 12.5 mg PO BID [facility] Last Admin: 08/04/16 17:22 Dose: 12.5 mg Clonidine HCl (Catapres-Tts3 0.3 Mg/24 Hr) 1 patch TD Q7D@1000 [facility] Enalaprilat (Vasotec) 2.5 mg IV Q6 [facility] Last Admin: 08/04/16 17:23 Dose: 2.5 mg Fentanyl (Duragesic) 1 patch TD Q72H [facility] Last Admin: 08/03/16 17:39 Dose: 1 patch Heparin Sodium (Porcine) (Heparin) 5,000 units SC Q8 [facility] Last Admin: 08/04/16 21:31 Dose: 5,000 units Hydralazine HCl (Apresoline) 10 mg IVP Q8 [facility] Last Admin: 08/04/16 21:32 Dose: 10 mg Hydromorphone HCl (Dilaudid) 1 mg IVP Q4H PRN PRN Reason: Pain, moderate (4-7) Last Admin: 08/04/16 21:30 Dose: 1 mg Dextrose (Dextrose 5% In Water 1000 Ml) 1,000 mls @ 30 mls/hr IV .Q24H [facility] Last Admin: 08/03/16 14:05 Dose: 30 mls/hr Metoclopramide HCl (Reglan) 10 mg IVP ACHS [facility] Last Admin: 08/04/16 21:38 Dose: 10 mg Nitroglycerin (Nitro-Bid 2% Oint) 1 ea TOP Q6 PRN PRN Reason: Heart rate Last Admin: 08/04/16 07:38 Dose: 1 ea Ondansetron HCl (Zofran Inj) 4 mg IVP Q4 PRN PRN Reason: Nausea/Vomiting Last Admin: 08/03/16 17:38 Dose: 4 mg Pantoprazole Sodium (Protonix Inj) 40 mg IVP DAILY [facility] Last Admin: 08/04/16 13:21 Dose: 40 mg - Labs Labs: 08/02/16 10:49 08/02/16 10:49 - Constitutional Appears: No Acute Distress, Chronically Ill - Head Exam Head Exam: ATRAUMATIC, NORMAL INSPECTION, NORMOCEPHALIC - Eye Exam Eye Exam: EOMI, Normal appearance, PERRL Pupil Exam: NORMAL ACCOMODATION, PERRL - Respiratory Exam Respiratory Exam: Clear to Ausculation Bilateral, NORMAL BREATHING PATTERN - Cardiovascular Exam Cardiovascular Exam: REGULAR RHYTHM, +S1, +S2. absent: Murmur - GI/Abdominal Exam GI & Abdominal Exam: Tenderness, Normal Bowel Sounds Assessment and Plan (1) Abdominal pain Status: Acute (2) ESRD needing dialysis Status: Acute (3) Nausea Status: Acute (4) Diabetes Status: Chronic (5) Diabetic gastroparesis Status: Resolved (6) Uncontrolled hypertension Status: Resolved (7) Diabetic foot ulcer Status: Acute
[2016-08-05] MEDS: Enalaprilat 2.5 MG/2 ML IV SCH ×4 (00:41→18:34)
[2016-08-05] MEDS: HYDROmorphone 1 mg/ml ISec IVP PRN ×5 (02:39→21:39)
--- NOTE | 2016-08-05 09:20 | CP.PCM.PN ---
Subjective - Date & Time of Evaluation Date of Evaluation: 08/05/16 Time of Evaluation: 09:00 - Subjective Subjective: Sedated No sob Objective - Vital Signs/Intake and Output Vital Signs (last 24 hours): Temp Pulse Resp BP Pulse Ox 98.1 F 76 20 176/81 H 100 08/05/16 07:41 08/05/16 07:48 08/05/16 07:41 08/05/16 09:16 08/05/16 07:41 Intake and Output: 08/05/16 08/05/16 06:59 18:59 Intake Total 340 Balance 340 - Medications Medications: Current Medications Carvedilol (Coreg) 12.5 mg PO BID [facility] Last Admin: 08/05/16 09:16 Dose: 12.5 mg Clonidine HCl (Catapres-Tts3 0.3 Mg/24 Hr) 1 patch TD Q7D@1000 [facility] Enalaprilat (Vasotec) 2.5 mg IV Q6 [facility] Last Admin: 08/05/16 05:49 Dose: 2.5 mg Fentanyl (Duragesic) 1 patch TD Q72H [facility] Last Admin: 08/03/16 17:39 Dose: 1 patch Heparin Sodium (Porcine) (Heparin) 5,000 units SC Q8 [facility] Last Admin: 08/05/16 05:48 Dose: 5,000 units Hydralazine HCl (Apresoline) 10 mg IVP Q8 [facility] Last Admin: 08/05/16 05:48 Dose: 10 mg Hydromorphone HCl (Dilaudid) 1 mg IVP Q4H PRN PRN Reason: Pain, moderate (4-7) Last Admin: 08/05/16 07:04 Dose: 1 mg Dextrose (Dextrose 5% In Water 1000 Ml) 1,000 mls @ 30 mls/hr IV .Q24H [facility] Last Admin: 08/05/16 00:21 Dose: 30 mls/hr Metoclopramide HCl (Reglan) 10 mg IVP ACHS [facility] Last Admin: 08/05/16 07:36 Dose: 10 mg Nitroglycerin (Nitro-Bid 2% Oint) 1 ea TOP Q6 PRN PRN Reason: Heart rate Last Admin: 08/04/16 07:38 Dose: 1 ea Ondansetron HCl (Zofran Inj) 4 mg IVP Q4 PRN PRN Reason: Nausea/Vomiting Last Admin: 08/03/16 17:38 Dose: 4 mg Pantoprazole Sodium (Protonix Inj) 40 mg IVP DAILY [facility] Last Admin: 08/05/16 09:16 Dose: 40 mg - Labs Labs: 08/02/16 10:49 08/02/16 10:49 - Respiratory Exam Respiratory Exam: NORMAL BREATHING PATTERN Additional comments: Lungs clear - Cardiovascular Exam Cardiovascular Exam: REGULAR RHYTHM - Extremities Exam Additional comments: No edema Assessment and Plan - Assessment and Plan (Free Text) Assessment: ESRD on HD HTNBlood pressures are improved Abd pain, N&V IDDM Plan: Continue HD per schedule Monitor BP
[2016-08-05] MEDS ORDERED: Dextrose 50% SYRINGE Inj (50 ml) IV STA (12:00)
--- NOTE | 2016-08-05 12:09 | PN ---
DATE: 08/05/2016 LOCATION: 665, bed A. This 40-year-old female seen and examined in rounds, without significant clinical changes or reported active bleeding, but with intermittent periods of abdominal pain with nausea and dyspepsia on and of f, less than before. It has to be mentioned that the patient had been refusing oral intake recently. The entire chart is reviewed, including but not limited to the most recent lab and radiology study results, current and p revious medication list, current and the previous medical events. Case discussed with the staff at [facility]. Most recent lab results showed blood glucose level of 73 and the patient normal CBC wit h increased BUN and creatinine, on hemodialysis. PHYSICAL EXAMINATION: GENERAL: A 40-year-old female, awake, alert, oriented. VITAL SIGNS: Afebrile with pulse of 72, respiratory rate 20-22, blood pressure 170/86. HEENT: Showed pale, dry, oral mucoid membrane. Nonicteric sclerae. LUNGS: Few scattered crepitation, decreased air entry at bases. HEART: Positive S1 and S2. ABDOMEN: Soft. Bowel sounds are present with mild generalized . No mass or organomegaly. No rebound tenderness or guarding. RECTAL: The patient refused. EXTREMITIES: With mild lower extremities edematous changes. No clubbing or cyanosis. NEUROLOGIC: No added neurological deficits, sensory or motor. IMPRESSION: 1. Reexacerbation of peptic ulcer disease. 2. Diabetes mellitus. 3. Diabetic gastroparesis. 4. Poorly controlled hypertension. 5. End-stage renal disease, on hemodialysis. 6. Reported diabetic foot ulceration by history. 7. Known history of hyperlipidemia, depression, severe anxiety syndrome. 8. Recent history of pneumonia. 9. Thrombocytosis by recent history. SUGGESTION: 1. Continue current management. 2. Increase the dose of Reglan. 3. Start the patient on erythromycin IV in the meantime. Colleen Peraza MD cc: 14 TT: 08/05/2016 12:08:58 Confirmation # [id number] Dictation # [id number]
[2016-08-06] MEDS: Enalaprilat 2.5 MG/2 ML IV SCH ×5 (00:54→23:52)
[2016-08-06] MEDS: HYDROmorphone 1 mg/ml ISec IVP PRN ×5 (03:09→20:18)
--- NOTE | 2016-08-06 10:06 | PN ---
DATE: 08/06/2016 LOCATION: 665, bed A. This is a 40-year-old female seen and examined at rounds with a complaint of nausea, spitting small a mount of saliva with intermittent periods of abdominal pain and dyspepsia, but no actual vomiting. N o chest pain or palpitation, and no reported complaint of shortness of breath. No reported active bl eeding. The entire chart is reviewed, including but not limited to the most recent lab and radiology study results, current and the previous medication list, current and the previous medical events, al lergies to medication list, as well as all the available current and the previous medical records. C ase discussed with the staff at length. LABORATORY DATA: Most recent lab results show blood glucose level of 70 with increased BUN and creat inine, but normal calcium and low platelet count of 102. PHYSICAL EXAMINATION: GENERAL: A 40-year-old female. VITAL SIGNS: Afebrile with pulse of 80, respiratory rate 20-22, blood pressure 170/74. HEENT: Showed pale, dry oral mucoid membrane. Nonicteric sclerae. LUNGS: Few scattered crepitations, decreased air entry at bases. HEART: Positive S1 and S2. ABDOMEN: Soft. Bowel sounds are present with generalized mild tenderness. No mass or organomegaly. No rebound tenderness or guarding. EXTREMITIES: Without significant clubbing or cyanosis, but with slight lower extremity edematous ayesha nges. NEUROLOGIC: No new reported neurological deficits, sensory or motor. IMPRESSION: 1. Reexacerbation of peptic ulcer disease. 2. Diabetes mellitus, somewhat poorly controlled. 3. Diabetic gastroparesis. 4. End-stage renal disease, on dialysis. 5. Poorly-controlled hypertension. 6. Recent history of pneumonia. 7. Thrombocytopenia by recent history of unclear etiology. 8. Known history of anxiety syndrome, depression. 9. History of hyperlipidemia. SUGGESTION: 1. Increase ____ the Reglan up to 20 mg IV push q. 6 hours only as needed. 2. Continue erythromycin IV for the following and total of 7 days. 3. Repeat abdominal ultrasound if the patient's symptoms persist. 4. Further recommendations to follow. Colleen Peraza MD cc: 14 TT: 08/06/2016 10:05:54 Confirmation # [id number] Dictation # [id number]
[2016-08-06] MEDS: Nitroglycerin 2% Ointment Foilpak UD TOP PRN (10:15)
--- NOTE | 2016-08-06 12:48 | CP.PCM.PN ---
Subjective - Date & Time of Evaluation Date of Evaluation: 08/06/16 Time of Evaluation: 12:20 - Subjective Subjective: Sedated Does not answer questions Objective - Vital Signs/Intake and Output Vital Signs (last 24 hours): Temp Pulse Resp BP Pulse Ox 99.3 F 85 20 182/90 H 100 08/06/16 07:47 08/06/16 07:47 08/06/16 07:47 08/06/16 10:14 08/06/16 07:47 Intake and Output: 08/06/16 08/06/16 06:59 18:59 Intake Total 440 Balance 440 - Medications Medications: Current Medications Carvedilol (Coreg) 12.5 mg PO BID [facility] Last Admin: 08/06/16 10:14 Dose: 12.5 mg Clonidine HCl (Catapres-Tts3 0.3 Mg/24 Hr) 1 patch TD Q7D@1000 [facility] Enalaprilat (Vasotec) 2.5 mg IV Q6 [facility] Last Admin: 08/06/16 05:40 Dose: 2.5 mg Fentanyl (Duragesic) 1 patch TD Q72H [facility] Last Admin: 08/03/16 17:39 Dose: 1 patch Heparin Sodium (Porcine) (Heparin) 5,000 units SC Q8 [facility] Last Admin: 08/06/16 05:41 Dose: 5,000 units Hydralazine HCl (Apresoline) 10 mg IVP Q8 [facility] Last Admin: 08/06/16 05:39 Dose: 10 mg Hydromorphone HCl (Dilaudid) 1 mg IVP Q4H PRN PRN Reason: Pain, moderate (4-7) Last Admin: 08/06/16 11:18 Dose: 1 mg Dextrose (Dextrose 5% In Water 1000 Ml) 1,000 mls @ 30 mls/hr IV .Q24H [facility] Last Admin: 08/06/16 12:30 Dose: 30 mls/hr Erythromycin 500 mg/ Sodium (Chloride) 100 mls @ 100 mls/hr IVPB Q6H [facility] Last Admin: 08/06/16 12:35 Dose: 100 mls/hr Metoclopramide HCl (Reglan) 15 mg IVP ACHS [facility] Last Admin: 08/06/16 11:27 Dose: 15 mg Nitroglycerin (Nitro-Bid 2% Oint) 1 ea TOP Q6 PRN PRN Reason: Heart rate Last Admin: 08/06/16 10:15 Dose: 1 ea Pantoprazole Sodium (Protonix Inj) 40 mg IVP DAILY [facility] Last Admin: 08/06/16 10:00 Dose: 40 mg - Labs Labs: 08/02/16 10:49 08/02/16 10:49 - Respiratory Exam Respiratory Exam: NORMAL BREATHING PATTERN - Extremities Exam Additional comments: No edema Assessment and Plan - Assessment and Plan (Free Text) Assessment: ESRD HTH Abdominal pain IDDM Plan: Hemodialysis MWF Monitor BP.
--- NOTE | 2016-08-06 23:58 | CP.PCM.PN ---
Subjective - Date & Time of Evaluation Date of Evaluation: 08/06/16 Time of Evaluation: 09:53 - Subjective Subjective: Pt seen & examined at bedside, is improving, decreased nausea, vomitting abdominal pain, we shall pt on solid diet Objective - Vital Signs/Intake and Output Vital Signs (last 24 hours): Temp Pulse Resp BP Pulse Ox 98.2 F 76 20 191/83 H 95 08/06/16 16:05 08/06/16 16:05 08/06/16 16:05 08/06/16 23:52 08/06/16 16:05 Intake and Output: 08/06/16 08/07/16 18:59 06:59 Intake Total 580 Balance 580 - Medications Medications: Current Medications Carvedilol (Coreg) 12.5 mg PO BID [facility] Last Admin: 08/06/16 18:14 Dose: 12.5 mg Clonidine HCl (Catapres-Tts3 0.3 Mg/24 Hr) 1 patch TD Q7D@1000 [facility] Enalaprilat (Vasotec) 2.5 mg IV Q6 [facility] Last Admin: 08/06/16 23:52 Dose: 2.5 mg Fentanyl (Duragesic) 1 patch TD Q72H [facility] Last Admin: 08/06/16 18:25 Dose: 1 patch Hydralazine HCl (Apresoline) 10 mg IVP Q8 [facility] Last Admin: 08/06/16 22:21 Dose: 10 mg Hydromorphone HCl (Dilaudid) 1 mg IVP Q4H PRN PRN Reason: Pain, moderate (4-7) Last Admin: 08/06/16 20:18 Dose: 1 mg Erythromycin 500 mg/ Sodium (Chloride) 100 mls @ 100 mls/hr IVPB Q6H [facility] Last Admin: 08/06/16 18:14 Dose: 100 mls/hr Metoclopramide HCl (Reglan) 15 mg IVP ACHS [facility] Last Admin: 08/06/16 22:19 Dose: 15 mg Nitroglycerin (Nitro-Bid 2% Oint) 1 ea TOP Q6 PRN PRN Reason: Heart rate Last Admin: 08/06/16 10:15 Dose: 1 ea Pantoprazole Sodium (Protonix Ec Tab) 40 mg PO DAILY [facility] - Labs Labs: 08/02/16 10:49 08/02/16 10:49 - Constitutional Appears: No Acute Distress - Head Exam Head Exam: ATRAUMATIC, NORMAL INSPECTION, NORMOCEPHALIC - Eye Exam Eye Exam: EOMI, Normal appearance, PERRL Pupil Exam: NORMAL ACCOMODATION, PERRL - Respiratory Exam Respiratory Exam: Clear to Ausculation Bilateral, NORMAL BREATHING PATTERN - Cardiovascular Exam Cardiovascular Exam: REGULAR RHYTHM, +S1, +S2. absent: Murmur - GI/Abdominal Exam GI & Abdominal Exam: Soft, Normal Bowel Sounds. absent: Tenderness Assessment and Plan (1) Abdominal pain Status: Acute (2) Diabetic foot ulcer Status: Acute (3) Nausea Status: Acute (4) Diabetic gastroparesis Status: Resolved (5) Uncontrolled hypertension Status: Resolved (6) ESRD needing dialysis Status: Acute (7) Diabetes Status: Chronic - Assessment and Plan (Free Text) Plan: proceed diet, pain medications, antiemetics, B.P control
[2016-08-07] MEDS: HYDROmorphone 1 mg/ml ISec IVP PRN ×4 (00:50→14:32)
[2016-08-07] MEDS: Enalaprilat 2.5 MG/2 ML IV SCH ×4 (05:45→23:55)
[2016-08-07] MEDS ORDERED: Dextrose 50% SYRINGE Inj (50 ml) IV STA ×2 (07:11→12:48)
[2016-08-07 09:49] LABS: HEMATOCRIT 37.1 % (34.0-47.0); MEAN CELL VOLUME 93.6 fL (81.0-99.0); MEAN CORPUSCULAR HEMOGLOBIN 30.2 pg (27.0-31.0); MEAN CORPUSCULAR HGB CONC 32.2 g/dL (33.0-37.0); MEAN PLATELET VOLUME 8.3 fL (7.2-11.7); WHITE BLOOD COUNT 6.7 K/uL (4.8-10.8)
[2016-08-07 10:04] LABS: POTASSIUM 3.9 mmol/L (3.6-5.2)
[2016-08-07 10:06] LABS: ALB/GLOB RATIO 1.3 (1.0-2.1); BILIRUBIN,TOTAL 0.6 mg/dL (0.2-1.3); PHOSPHOROUS 6.4 mg/dL (2.5-4.5); TOTAL PROTEIN 7.4 g/dL (6.3-8.3)
[2016-08-07 10:07] LABS: CALCIUM 9.2 mg/dl (8.6-10.4)
--- NOTE | 2016-08-07 11:10 | PN ---
DATE: 08/07/2016 LOCATION: 665, bed A. This is a 40-year-old female seen and examined in rounds without significant clinical changes. No re ported active bleeding. No nausea or vomiting, but only occasional nausea with dyspepsia, with small amount of saliva. The entire chart is reviewed, including but not limited to the most recent lab an d radiology study results, current and the previous medication list, current and the previous medical events. LABORATORY DATA: The patient's white blood cells are 6.7 with normal hemoglobin and hematocrit, as w ell as normal platelet count with BUN of 27, creatinine 9.4 with phosphorus elevated to 6.4. Case discussed at length with the staff on the floor. PHYSICAL EXAMINATION: GENERAL: A 40-year-old female, awake, alert, oriented, tolerating some oral intake. VITAL SIGNS: Temperature of 99.2, pulse 84, respiratory rate 20-22 with blood pressure of 176/74. HEENT: Showed dry oral mucoid membrane. Nonicteric sclerae. LUNGS: Few scattered crepitations. Decreased air entry at bases. HEART: Positive S1 and S2. ABDOMEN: Soft. Bowel sounds are present. No mass or organomegaly. No rebound tenderness or guardi ng. EXTREMITIES: With slight lower extremity edematous changes. No clubbing or cyanosis. NEUROLOGIC: No new reported neurological deficits, sensory or motor. IMPRESSION: 1. Peptic ulcer disease. 2. Diabetes mellitus. 3. Diabetic gastroparesis. 4. Poorly-controlled hypertension. 5. Recent history of pneumonia. 6. End-stage renal disease, on hemodialysis. 7. Known history of depression with severe anxiety syndrome. 8. Known history of hyperlipidemia. SUGGESTION: 1. Continue current management. 2. Repeat serum lipase and amylase level. 3. No need for aggressive GI workup. In the meantime, the patient had upper endoscopy recently. Colleen Peraza MD cc: 14 TT: 08/07/2016 11:09:27 Confirmation # [id number] Dictation # [id number]
--- NOTE | 2016-08-07 11:16 | CP.PCM.PN ---
Subjective - Date & Time of Evaluation Date of Evaluation: 08/07/16 Time of Evaluation: 10:25 - Subjective Subjective: Seen on dialysis BP 136/70 Objective - Vital Signs/Intake and Output Vital Signs (last 24 hours): Temp Pulse Resp BP Pulse Ox 99.2 F 80 20 171/78 H 100 08/07/16 08:37 08/07/16 08:37 08/07/16 08:37 08/07/16 08:37 08/07/16 08:37 Intake and Output: 08/07/16 08/07/16 06:59 18:59 Intake Total 580 Balance 580 - Medications Medications: Current Medications Carvedilol (Coreg) 12.5 mg PO BID [facility] Last Admin: 08/06/16 18:14 Dose: 12.5 mg Clonidine HCl (Catapres-Tts3 0.3 Mg/24 Hr) 1 patch TD Q7D@1000 [facility] Enalaprilat (Vasotec) 2.5 mg IV Q6 [facility] Last Admin: 08/07/16 05:45 Dose: 2.5 mg Hydralazine HCl (Apresoline) 10 mg IVP Q8 [facility] Last Admin: 08/07/16 06:19 Dose: 10 mg Hydromorphone HCl (Dilaudid) 1 mg IVP Q4H PRN PRN Reason: Pain, severe (8-10) Last Admin: 08/07/16 09:37 Dose: 1 mg Erythromycin 500 mg/ Sodium (Chloride) 100 mls @ 100 mls/hr IVPB Q6H [facility] Last Admin: 08/07/16 07:00 Dose: 100 mls/hr Metoclopramide HCl (Reglan) 15 mg IVP ACHS [facility] Last Admin: 08/07/16 08:55 Dose: 15 mg Nitroglycerin (Nitro-Bid 2% Oint) 1 ea TOP Q6 PRN PRN Reason: Heart rate Last Admin: 08/06/16 10:15 Dose: 1 ea Pantoprazole Sodium (Protonix Ec Tab) 40 mg PO DAILY [facility] - Labs Labs: 08/07/16 09:42 08/07/16 09:42 - Respiratory Exam Respiratory Exam: NORMAL BREATHING PATTERN - Cardiovascular Exam Cardiovascular Exam: REGULAR RHYTHM - Extremities Exam Additional comments: No edema Assessment and Plan - Assessment and Plan (Free Text) Assessment: ESRD on HD HTN Abdominal pain IDDM Plan: Stable on dialysis UF 3 Kg tolerating well.
[2016-08-07] MEDS: Nitroglycerin 2% Ointment Foilpak UD TOP PRN (13:53)
[2016-08-07] MEDS: Pantoprazole 40 mg EC Tab PO SCH (13:53)
[2016-08-07] MEDS: HYDROmorphone 0.5 mg/0.5 ml ISec IVP PRN ×2 (19:38→23:46)
--- NOTE | 2016-08-07 23:09 | CARD ---
APPROVED REPORT EKG Measurement Heart [id number] <Conclusion> Normal sinus rhythm Possible Left atrial enlargement Left axis deviation RSR' or QR pattern in V1 suggests right ventricular conduction delay Abnormal ECG
--- NOTE | 2016-08-08 00:07 | CP.PCM.PN ---
Subjective - Date & Time of Evaluation Date of Evaluation: 08/07/16 Time of Evaluation: 10:08 - Subjective Subjective: Pt seen & examined at bedside, is improving, decreased nausea, vomitting abdominal pain, we shall pt on solid diet, her apetite is poor, she gets hypoglycemic Objective - Vital Signs/Intake and Output Vital Signs (last 24 hours): Temp Pulse Resp BP Pulse Ox 98.2 F 74 20 177/85 H 100 08/07/16 21:20 08/07/16 21:20 08/07/16 21:20 08/07/16 23:55 08/07/16 21:20 Intake and Output: 08/07/16 08/08/16 18:59 06:59 Intake Total 370 Output Total 50 Balance 320 - Medications Medications: Current Medications Carvedilol (Coreg) 12.5 mg PO BID [facility] Last Admin: 08/07/16 17:22 Dose: 12.5 mg Clonidine HCl (Catapres-Tts3 0.3 Mg/24 Hr) 1 patch TD Q7D@1000 [facility] Last Admin: 08/07/16 13:54 Dose: 1 patch Enalaprilat (Vasotec) 2.5 mg IV Q6 [facility] Last Admin: 08/07/16 23:55 Dose: 2.5 mg Fentanyl (Duragesic) 1 patch TD Q72H [facility] Heparin Sodium (Porcine) (Heparin) 5,000 units SC Q8 [facility] Last Admin: 08/07/16 21:40 Dose: Not Given Hydralazine HCl (Apresoline) 10 mg IVP Q8 [facility] Last Admin: 08/07/16 21:24 Dose: 10 mg Hydromorphone HCl (Dilaudid) 0.5 mg IVP Q4H PRN PRN Reason: Pain, severe (8-10) Last Admin: 08/07/16 23:46 Dose: 0.5 mg Erythromycin 500 mg/ Sodium (Chloride) 100 mls @ 100 mls/hr IVPB Q6H [facility] Last Admin: 08/07/16 19:36 Dose: 100 mls/hr Dextrose (Dextrose 10% In Water) 1,000 mls @ 30 mls/hr IV .Q24H [facility] Last Admin: 08/07/16 19:43 Dose: 30 mls/hr Metoclopramide HCl (Reglan) 15 mg IVP ACHS [facility] Last Admin: 08/07/16 21:25 Dose: 15 mg Nitroglycerin (Nitro-Bid 2% Oint) 1 ea TOP Q6 PRN PRN Reason: Heart rate Last Admin: 08/07/16 13:53 Dose: 1 ea Pantoprazole Sodium (Protonix Ec Tab) 40 mg PO DAILY [facility] Last Admin: 08/07/16 13:53 Dose: 40 mg - Labs Labs: 08/07/16 09:42 08/07/16 09:42 - Constitutional Appears: No Acute Distress - Head Exam Head Exam: ATRAUMATIC, NORMAL INSPECTION, NORMOCEPHALIC - Eye Exam Eye Exam: EOMI, Normal appearance, PERRL Pupil Exam: NORMAL ACCOMODATION, PERRL - Respiratory Exam Respiratory Exam: Clear to Ausculation Bilateral, NORMAL BREATHING PATTERN - Cardiovascular Exam Cardiovascular Exam: REGULAR RHYTHM, +S1, +S2. absent: Murmur - GI/Abdominal Exam GI & Abdominal Exam: Soft, Normal Bowel Sounds. absent: Tenderness Assessment and Plan (1) Abdominal pain Status: Acute (2) Diabetic foot ulcer Status: Acute (3) Nausea Status: Acute (4) Diabetic gastroparesis Status: Resolved (5) Uncontrolled hypertension Status: Resolved (6) ESRD needing dialysis Status: Acute (7) Diabetes Status: Chronic
[2016-08-08] MEDS: HYDROmorphone 0.5 mg/0.5 ml ISec IVP PRN ×5 (03:49→20:19)
[2016-08-08] MEDS: Enalaprilat 2.5 MG/2 ML IV SCH ×3 (06:15→19:18)
[2016-08-08] MEDS: Pantoprazole 40 mg EC Tab PO SCH (10:02)
--- NOTE | 2016-08-08 12:04 | CP.PCM.PN ---
Subjective - Date & Time of Evaluation Date of Evaluation: 08/08/16 Time of Evaluation: 11:50 - Subjective Subjective: Still vomiting No sob noted Objective - Vital Signs/Intake and Output Vital Signs (last 24 hours): Temp Pulse Resp BP Pulse Ox 98.5 F 81 19 153/69 H 100 08/08/16 07:53 08/08/16 08:45 08/08/16 07:53 08/08/16 10:02 08/08/16 07:53 Intake and Output: 08/08/16 08/08/16 06:59 18:59 Intake Total 370 360 Output Total 50 Balance 320 360 - Medications Medications: Current Medications Carvedilol (Coreg) 12.5 mg PO BID [facility] Last Admin: 08/08/16 10:02 Dose: 12.5 mg Clonidine HCl (Catapres-Tts3 0.3 Mg/24 Hr) 1 patch TD Q7D@1000 [facility] Last Admin: 08/07/16 13:54 Dose: 1 patch Enalaprilat (Vasotec) 2.5 mg IV Q6 [facility] Last Admin: 08/08/16 06:15 Dose: Not Given Fentanyl (Duragesic) 1 patch TD Q72H [facility] Heparin Sodium (Porcine) (Heparin) 5,000 units SC Q8 [facility] Last Admin: 08/08/16 06:14 Dose: Not Given Hydralazine HCl (Apresoline) 10 mg IVP Q8 [facility] Last Admin: 08/08/16 06:17 Dose: 10 mg Hydromorphone HCl (Dilaudid) 0.5 mg IVP Q4H PRN PRN Reason: Pain, severe (8-10) Last Admin: 08/08/16 08:22 Dose: 0.5 mg Erythromycin 500 mg/ Sodium (Chloride) 100 mls @ 100 mls/hr IVPB Q6H [facility] Last Admin: 08/08/16 07:10 Dose: Not Given Dextrose (Dextrose 10% In Water) 1,000 mls @ 30 mls/hr IV .Q24H [facility] Last Admin: 08/07/16 19:43 Dose: 30 mls/hr Metoclopramide HCl (Reglan) 15 mg IVP ACHS [facility] Last Admin: 08/08/16 08:24 Dose: 15 mg Nitroglycerin (Nitro-Bid 2% Oint) 1 ea TOP Q6 PRN PRN Reason: Heart rate Last Admin: 08/07/16 13:53 Dose: 1 ea Pantoprazole Sodium (Protonix Ec Tab) 40 mg PO DAILY [facility] Last Admin: 08/08/16 10:02 Dose: 40 mg - Labs Labs: 08/07/16 09:42 08/07/16 09:42 - Respiratory Exam Respiratory Exam: NORMAL BREATHING PATTERN Additional comments: Lungs clear - Cardiovascular Exam Cardiovascular Exam: REGULAR RHYTHM - Extremities Exam Additional comments: No edema Assessment and Plan - Assessment and Plan (Free Text) Assessment: ESRD on HD HTN Abdomina; pain Plan: Continue HD per schedule BP is improving
--- NOTE | 2016-08-08 12:50 | PN ---
DATE: 08/08/2016 LOCATION: 672, bed A. This is a 40-year-old female seen and examined in rounds. Appears to be more awake, alert, oriented with intermittent periods of episodes of vomiting small clear liquid with intermittent periods of abd ominal pain. The entire chart is reviewed, including but not limited to most recent lab and radiolog y study results, current and the previous medication list, current and the previous medical events as well as allergies to medication list. Case discussed at length with the staff on the floor and concepcion laws's blood glucose level is 112. PHYSICAL EXAMINATION: GENERAL: A 40-year-old female. VITAL SIGNS: Afebrile with pulse of 84, respiratory rate 20-22, blood pressure 156/66. HEENT: Showed pale, dry oral mucoid membrane. Nonicteric sclerae. LUNGS: Few scattered crepitation, decreased air entry at bases. HEART: Positive S1 and S2. ABDOMEN: Soft with slight generalized tenderness. No mass or organomegaly. No rebound tenderness o r guarding. EXTREMITIES: Without significant edema, clubbing or cyanosis. NEUROLOGIC: No reported new neurological deficits, sensory or motor. IMPRESSION: 1. Poorly controlled hypertension. 2. Peptic ulcer disease. 3. Diabetes mellitus with diabetic gastroparesis. SUGGESTION: 1. Continue current management. 2. Increase the rate of Reglan as needed only. Colleen Peraza MD cc: 14 TT: 08/08/2016 12:49:13 Confirmation # [id number] Dictation # [id number]
[2016-08-09] MEDS: HYDROmorphone 0.5 mg/0.5 ml ISec IVP PRN ×4 (00:29→13:49)
--- NOTE | 2016-08-09 01:23 | CP.PCM.PN ---
Subjective - Date & Time of Evaluation Date of Evaluation: 08/08/16 Time of Evaluation: 10:11 - Subjective Subjective: Pt seen & evaluated, continues to have nausea, vomitting, on higher doses of REglan now, also seen by GI, she is also hypoglycemic Objective - Vital Signs/Intake and Output Vital Signs (last 24 hours): Temp Pulse Resp BP Pulse Ox 98.2 F 75 20 149/74 100 08/08/16 23:00 08/08/16 23:00 08/08/16 23:00 08/09/16 00:00 08/08/16 23:00 Intake and Output: 08/08/16 08/09/16 18:59 06:59 Intake Total 785 Output Total 100 Balance 685 - Medications Medications: Current Medications Carvedilol (Coreg) 12.5 mg PO BID [facility] Last Admin: 08/08/16 19:27 Dose: 12.5 mg Clonidine HCl (Catapres-Tts3 0.3 Mg/24 Hr) 1 patch TD Q7D@1000 [facility] Last Admin: 08/07/16 13:54 Dose: 1 patch Enalaprilat (Vasotec) 2.5 mg IV Q6 [facility] Last Admin: 08/09/16 00:00 Dose: Not Given Fentanyl (Duragesic) 1 patch TD Q72H [facility] Heparin Sodium (Porcine) (Heparin) 5,000 units SC Q8 [facility] Last Admin: 08/08/16 23:15 Dose: Not Given Hydralazine HCl (Apresoline) 10 mg IVP Q8 [facility] Last Admin: 08/08/16 23:14 Dose: 10 mg Hydromorphone HCl (Dilaudid) 0.5 mg IVP Q4H PRN PRN Reason: Pain, severe (8-10) Last Admin: 08/09/16 00:29 Dose: 0.5 mg Erythromycin 500 mg/ Sodium (Chloride) 100 mls @ 100 mls/hr IVPB Q6H [facility] Last Admin: 08/09/16 00:39 Dose: Not Given Dextrose (Dextrose 10% In Water) 1,000 mls @ 30 mls/hr IV .Q24H [facility] Last Admin: 08/08/16 20:23 Dose: 30 mls/hr Lactulose (Enulose) 20 gm PO HS PRN PRN Reason: Constipation Metoclopramide HCl (Reglan) 15 mg IVP ACHS [facility] Last Admin: 08/08/16 23:18 Dose: 15 mg Nitroglycerin (Nitro-Bid 2% Oint) 1 ea TOP Q6 PRN PRN Reason: Heart rate Last Admin: 08/07/16 13:53 Dose: 1 ea Pantoprazole Sodium (Protonix Ec Tab) 40 mg PO DAILY [facility] Last Admin: 08/08/16 10:02 Dose: 40 mg - Labs Labs: 08/07/16 09:42 08/07/16 09:42 - Constitutional Appears: No Acute Distress - Head Exam Head Exam: ATRAUMATIC, NORMAL INSPECTION, NORMOCEPHALIC - Eye Exam Eye Exam: EOMI, Normal appearance, PERRL Pupil Exam: NORMAL ACCOMODATION, PERRL - ENT Exam ENT Exam: Mucous Membranes Moist, Normal Exam - Respiratory Exam Respiratory Exam: Clear to Ausculation Bilateral, NORMAL BREATHING PATTERN - Cardiovascular Exam Cardiovascular Exam: REGULAR RHYTHM, +S1, +S2. absent: Murmur - GI/Abdominal Exam GI & Abdominal Exam: Soft, Normal Bowel Sounds. absent: Tenderness - Neurological Exam Neurological Exam: Alert, Awake, CN II-XII Intact, Normal Gait, Oriented x3 - Psychiatric Exam Psychiatric exam: Anxious Assessment and Plan (1) Abdominal pain Status: Acute (2) Diabetic foot ulcer Status: Acute (3) Nausea Status: Acute (4) Diabetic gastroparesis Status: Resolved (5) Uncontrolled hypertension Status: Resolved (6) ESRD needing dialysis Status: Acute (7) Diabetes Status: Chronic
[2016-08-09] MEDS: Enalaprilat 2.5 MG/2 ML IV SCH ×3 (05:57→12:20)
[2016-08-09] MEDS: Pantoprazole 40 mg EC Tab PO SCH ×2 (08:46→09:21)
[2016-08-09 10:08] LABS: BASO # 0.1 K/uL (0.0-0.2); BASO % 1.4 % (0.0-2.0); EOS # 0.6 K/uL (0.0-0.7); EOS % 7.9 % (0.0-4.0); HEMATOCRIT 39.4 % (34.0-47.0); LYMPH # 1.2 K/uL (1.0-4.3); LYMPH % 15.4 % (20.0-40.0); MEAN CELL VOLUME 93.5 fL (81.0-99.0); MEAN CORPUSCULAR HGB CONC 32.1 g/dL (33.0-37.0); MEAN PLATELET VOLUME 8.3 fL (7.2-11.7); MONO # 0.7 K/uL (0.0-0.8); MONO % 8.8 % (0.0-10.0); NRBC % 0.1 % (0.0-2.0); RED CELL DISTRIBUTION WIDTH 15.8 % (11.5-14.5); WHITE BLOOD COUNT 8.1 K/uL (4.8-10.8)
[2016-08-09 10:18] VITALS: TEMP 97.9
[2016-08-09 10:22] VITALS: O2SAT 100
[2016-08-09 10:22] LABS: POTASSIUM 3.8 mmol/L (3.6-5.2)
[2016-08-09 10:24] LABS: ALB/GLOB RATIO 1.2 (1.0-2.1); BILIRUBIN,TOTAL 0.9 mg/dL (0.2-1.3); CALCIUM 9.5 mg/dl (8.6-10.4); TOTAL PROTEIN 8.1 g/dL (6.3-8.3)
--- NOTE | 2016-08-09 13:00 | PN ---
DATE: 08/09/2016 LOCATION: 672, bed A. This is a 40-year-old female seen and examined in rounds with intermittent periods of nausea with dys pepsia, but less than before with less abdominal pain. No reported active bleeding, tolerating some clear liquid diet. The entire chart is reviewed including, but not limited to the most recent lab and radiology study re sults, current and the previous medication lists, current and the previous medical events. Case disc ussed at length with the staff on the floor and the patient has normal white blood cells and normal h emoglobin and hematocrit with increased BUN to 20 and increased creatinine to 8.8 compatible with the patient's known history of renal failure with blood glucose level 142. It has to be mentioned that the patient had periods of hypoglycemia before. PHYSICAL EXAMINATION: GENERAL: A 40-year-old female. VITAL SIGNS: Afebrile with heart rate of 76 and respiratory rate of 18-20, blood pressure is still e levated of 166/54. HEENT: Showed pale, dry oral mucoid membrane. Nonicteric sclerae. LUNGS: Few scattered crepitation, decreased air entry at bases. HEART: Positive S1 and S2. ABDOMEN: Soft with slight distention and generalized tenderness, less than before. Bowel sounds are present. No mass or organomegaly. No rebound tenderness or guarding. EXTREMITIES: With lower extremities edematous changes. No clubbing or cyanosis. NEUROLOGIC: No new reported neurological deficits, sensory or motor. IMPRESSION: 1. Reexacerbation of peptic ulcer disease. 2. Poorly controlled hypertension. 3. Diabetes mellitus. 4. Diabetic gastroparesis. 5. Recent history of pneumonia, improving. 6. End-stage renal disease, on dialysis. 7. Known history of hyperlipidemia. 8. Severe anxiety syndrome with depression by history. SUGGESTION: 1. Agree with your plan. 2. Again, may increase Reglan to 20 mg IV push q. 6 hours if the patient's symptoms do not improve. Colleen Peraza MD cc: 14 TT: 08/09/2016 12:59:39 Confirmation # [id number] Dictation # [id number]
[2016-08-09 15:39] VITALS: BP 146/74; PULSE 81; RESP 20
--- NOTE | 2016-08-09 16:13 | CP.PCM.PN ---
Subjective - Date & Time of Evaluation Date of Evaluation: 08/09/16 Time of Evaluation: 03:45 - Subjective Subjective: Alert today. States she feels better Objective - Vital Signs/Intake and Output Vital Signs (last 24 hours): Temp Pulse Resp BP Pulse Ox 97.9 F 81 20 146/74 100 08/09/16 15:38 08/09/16 15:38 08/09/16 15:38 08/09/16 15:38 08/09/16 15:38 Intake and Output: 08/09/16 08/09/16 06:59 18:59 Intake Total 290 Balance 290 - Medications Medications: Current Medications Carvedilol (Coreg) 12.5 mg PO BID [facility] Last Admin: 08/09/16 09:19 Dose: Not Given Clonidine HCl (Catapres-Tts3 0.3 Mg/24 Hr) 1 patch TD Q7D@1000 [facility] Last Admin: 08/07/16 13:54 Dose: 1 patch Enalaprilat (Vasotec) 2.5 mg IV Q6 [facility] Last Admin: 08/09/16 12:20 Dose: Not Given Fentanyl (Duragesic) 1 patch TD Q72H [facility] Heparin Sodium (Porcine) (Heparin) 5,000 units SC Q8 [facility] Last Admin: 08/09/16 13:42 Dose: Not Given Hydralazine HCl (Apresoline) 10 mg IVP Q8 [facility] Last Admin: 08/09/16 13:48 Dose: 10 mg Hydromorphone HCl (Dilaudid) 0.5 mg IVP Q4H PRN PRN Reason: Pain, severe (8-10) Last Admin: 08/09/16 13:49 Dose: 0.5 mg Erythromycin 500 mg/ Sodium (Chloride) 100 mls @ 100 mls/hr IVPB Q6H [facility] Last Admin: 08/09/16 13:19 Dose: Not Given Dextrose (Dextrose 10% In Water) 1,000 mls @ 30 mls/hr IV .Q24H [facility] Last Admin: 08/08/16 20:23 Dose: 30 mls/hr Lactulose (Enulose) 20 gm PO HS PRN PRN Reason: Constipation Metoclopramide HCl (Reglan) 15 mg IVP ACHS [facility] Last Admin: 08/09/16 13:48 Dose: 15 mg Nitroglycerin (Nitro-Bid 2% Oint) 1 ea TOP Q6 PRN PRN Reason: Heart rate Last Admin: 08/07/16 13:53 Dose: 1 ea Pantoprazole Sodium (Protonix Ec Tab) 40 mg PO DAILY [facility] Last Admin: 08/09/16 09:21 Dose: Not Given - Labs Labs: 08/09/16 10:02 08/09/16 10:02 - Respiratory Exam Additional comments: Lungs clear - Cardiovascular Exam Cardiovascular Exam: REGULAR RHYTHM - Extremities Exam Additional comments: No edema Assessment and Plan - Assessment and Plan (Free Text) Assessment: ESRD on HD HTN Abdominal pain IDDM Plan: BP is markedly improved Stable on dialysis. Continue HD MWF
--- NOTE | 2016-08-09 16:41 | CP.PCM.PN ---
Subjective - Date & Time of Evaluation Date of Evaluation: 08/09/16 Time of Evaluation: 14:00 - Subjective Subjective: Pt seen and examined today after HD , abdominal pain improved , denies any N/ V today, tolerating diet without N/V BP - stable Objective - Vital Signs/Intake and Output Vital Signs (last 24 hours): Temp Pulse Resp BP Pulse Ox 97.9 F 81 20 146/74 100 08/09/16 15:38 08/09/16 15:38 08/09/16 15:38 08/09/16 15:38 08/09/16 15:38 Intake and Output: 08/09/16 08/09/16 06:59 18:59 Intake Total 290 Balance 290 - Medications Medications: Current Medications Carvedilol (Coreg) 12.5 mg PO BID [facility] Last Admin: 08/09/16 09:19 Dose: Not Given Clonidine HCl (Catapres-Tts3 0.3 Mg/24 Hr) 1 patch TD Q7D@1000 [facility] Last Admin: 08/07/16 13:54 Dose: 1 patch Enalaprilat (Vasotec) 2.5 mg IV Q6 [facility] Last Admin: 08/09/16 12:20 Dose: Not Given Fentanyl (Duragesic) 1 patch TD Q72H [facility] Heparin Sodium (Porcine) (Heparin) 5,000 units SC Q8 [facility] Last Admin: 08/09/16 13:42 Dose: Not Given Hydralazine HCl (Apresoline) 10 mg IVP Q8 [facility] Last Admin: 08/09/16 13:48 Dose: 10 mg Hydromorphone HCl (Dilaudid) 0.5 mg IVP Q4H PRN PRN Reason: Pain, severe (8-10) Last Admin: 08/09/16 13:49 Dose: 0.5 mg Erythromycin 500 mg/ Sodium (Chloride) 100 mls @ 100 mls/hr IVPB Q6H [facility] Last Admin: 08/09/16 13:19 Dose: Not Given Dextrose (Dextrose 10% In Water) 1,000 mls @ 30 mls/hr IV .Q24H [facility] Last Admin: 08/08/16 20:23 Dose: 30 mls/hr Lactulose (Enulose) 20 gm PO HS PRN PRN Reason: Constipation Metoclopramide HCl (Reglan) 15 mg IVP ACHS [facility] Last Admin: 08/09/16 13:48 Dose: 15 mg Nitroglycerin (Nitro-Bid 2% Oint) 1 ea TOP Q6 PRN PRN Reason: Heart rate Last Admin: 08/07/16 13:53 Dose: 1 ea Pantoprazole Sodium (Protonix Ec Tab) 40 mg PO DAILY [facility] Last Admin: 08/09/16 09:21 Dose: Not Given - Labs Labs: 08/09/16 10:02 08/09/16 10:02 Assessment and Plan - Assessment and Plan (Free Text) Assessment: A/P 40 yr old female admitted for intractable N/V and abdominal pain and uncontroled HTN Bp stable Pt tolerating diet without N/V TODAY D/w With Dr. Gamez, stable fro discharge to [facility] today and Dr. Gamez will follow the patient at [facility] Discharge plan discussed with patient, who understands and agrees with plan SW will contact HD center to continue hd as scheduled MWF
--- NOTE | 2016-08-10 00:09 | CP.PCM.DIS ---
Provider - Provider Date of Admission: 07/31/16 17:35 Attending physician: Sal Gamez MD Time Spent in preparation of Discharge (in minutes): 30 Diagnosis - Discharge Diagnosis (1) Abdominal pain Status: Acute (2) Diabetic foot ulcer Status: Acute (3) Nausea Status: Acute (4) Diabetic gastroparesis Status: Resolved (5) Uncontrolled hypertension Status: Resolved (6) ESRD needing dialysis Status: Acute (7) Diabetes Status: Chronic Hospital Course - Lab Results Lab Results: Micro Results 08/03/16 Unknown Naris MRSA Culture - Final MRSA NOT DETECTED 07/31/16 Unknown Naris MRSA Culture (Admit) - Final MRSA NOT DETECTED Most Recent Lab Values WBC 8.1 K/uL (4.8-10.8) 08/09/16 10:02 RBC 4.21 Mil/uL (3.80-5.20) 08/09/16 10:02 Hgb 12.7 g/dL (11.0-16.0) 08/09/16 10:02 Hct 39.4 % (34.0-47.0) 08/09/16 10:02 MCV 93.5 fL (81.0-99.0) 08/09/16 10:02 MCH 30.0 pg (27.0-31.0) 08/09/16 10:02 MCHC 32.1 g/dL (33.0-37.0) L 08/09/16 10:02 RDW 15.8 % (11.5-14.5) H 08/09/16 10:02 Plt Count 189 K/uL (130-400) 08/09/16 10:02 MPV 8.3 fL (7.2-11.7) 08/09/16 10:02 Neut % (Auto) 66.5 % (50.0-75.0) 08/09/16 10:02 Lymph % (Auto) 15.4 % (20.0-40.0) L 08/09/16 10:02 Harvey % (Auto) 8.8 % (0.0-10.0) 08/09/16 10:02 Eos % (Auto) 7.9 % (0.0-4.0) H 08/09/16 10:02 Baso % (Auto) 1.4 % (0.0-2.0) 08/09/16 10:02 Neut # 5.4 K/uL (1.8-7.0) 08/09/16 10:02 Lymph # 1.2 K/uL (1.0-4.3) 08/09/16 10:02 Harvey # 0.7 K/uL (0.0-0.8) 08/09/16 10:02 Eos # 0.6 K/uL (0.0-0.7) 08/09/16 10:02 Baso # 0.1 K/uL (0.0-0.2) 08/09/16 10:02 Neutrophils % (Manual) 83 % (50-75) H 07/31/16 16:15 Lymphocytes % (Manual) 9 % (20-40) L 07/31/16 16:15 Monocytes % (Manual) 1 % (0-10) 07/31/16 16:15 Eosinophils % (Manual) 6 % (0-4) H 07/31/16 16:15 Basophils % (Manual) 1 % (0-2) 07/31/16 16:15 Differential Comment 08/02/16 10:49 Platelet Estimate Normal (NORMAL) 07/31/16 16:15 Anisocytosis (manual) Slight 07/31/16 16:15 Sodium 133 mmol/L (132-148) 08/09/16 10:02 Potassium 3.8 mmol/L (3.6-5.2) 08/09/16 10:02 Chloride 91 mmol/L (98-107) L 08/09/16 10:02 Carbon Dioxide 27 mmol/L (22-30) 08/09/16 10:02 Anion Gap 20 (10-20) 08/09/16 10:02 BUN 20 mg/dL (7-17) H 08/09/16 10:02 Creatinine 8.8 MG/DL (0.7-1.2) H* 08/09/16 10:02 Est GFR ( Amer) 6 08/09/16 10:02 Est GFR (Non-Af Amer) 5 08/09/16 10:02 POC Glucose (mg/dL) 160 mg/dL (65-110) H 08/09/16 16:16 Random Glucose 119 mg/dL (65-105) H 08/09/16 10:02 Calcium 9.5 mg/dl (8.6-10.4) 08/09/16 10:02 Phosphorus 6.4 mg/dL (2.5-4.5) H 08/07/16 09:42 Total Bilirubin 0.9 mg/dL (0.2-1.3) 08/09/16 10:02 AST 22 U/L (14-36) 08/09/16 10:02 ALT 17 U/L (9-52) 08/09/16 10:02 Alkaline Phosphatase 78 U/L (38-126) 08/09/16 10:02 Total Protein 8.1 g/dL (6.3-8.3) 08/09/16 10:02 Albumin 4.5 g/dL (3.5-5.0) 08/09/16 10:02 Globulin 3.6 gm/dL (2.2-3.9) 08/09/16 10:02 Albumin/Globulin Ratio 1.2 (1.0-2.1) 08/09/16 10:02 Amylase 69 U/L (30-110) 08/02/16 20:36 Lipase 25 U/L (23-300) 08/02/16 20:36 - Hospital Course Hospital Course: Pt seen and examined today after HD , abdominal pain improved , denies any N/ V today, tolerating diet without N/V BP - stable pt is for discharge Discharge Exam - Head Exam Head Exam: ATRAUMATIC, NORMAL INSPECTION, NORMOCEPHALIC - Eye Exam Eye Exam: EOMI, Normal appearance, PERRL Pupil Exam: NORMAL ACCOMODATION, PERRL - Respiratory Exam Respiratory Exam: Clear to PA & Lateral, NORMAL BREATHING PATTERN - Cardiovascular Exam Cardiovascular Exam: REGULAR RHYTHM, +S1, +S2 - GI/Abdominal Exam GI & Abdominal Exam: Normal Bowel Sounds - Neurological Exam Neurological exam: Alert, CN II-XII Intact, Normal Gait, Oriented x3, Reflexes Normal - Psychiatric Exam Psychiatric exam: Normal Affect, Normal Mood Discharge Plan - Follow Up Plan Condition: GUARDED Disposition: TRANSF TO SNF Instructions: Heart Failure (DC), Dialysis Diet (DC), Hyperkalemia (DC), End Stage Kidney Disease (DC) Additional Instructions: Please admit patient under Dr. Gamez service - call Dr. Gamez upon patinet arrival to the facility Pt admit patient to 5th floor [address] [place] only ( already had discussion with den corbin) Continue medication as per Med. REc. Referrals: Sal Gaemz MD [Staff Provider] -
--- NOTE | 2016-08-12 08:27 | CON ---
DATE: 08/02/[address] Colleen Peraza to I was called for GI consultation by the admitting medical team. The patient is seen and fully examin ed on 08/02/2016 as requested by the staff on the floor, as well as admitting private MD. The entire chart is reviewed including, but not limited to the most recent lab and radiology study results, cur rent and the previous medication lists, current and the previous medical events, allergy to medicatio n list, as well as all the available current and the previous medical records. HISTORY OF PRESENT ILLNESS: This is a 40-year-old female, very well known case for me from previous multiple admissions, was admitted to the hospital with the main complaint of diffuse abdominal pain, recurrent nausea and vomiting, persistent dyspepsia, poor oral intake, but no reported active bleedin g, also with change of bowel movement habit. PAST MEDICAL HISTORY: Including, but not limited to: 1. Poorly controlled diabetes mellitus. 2. Diabetic gastroparesis. 3. Peptic ulcer disease. 4. Hypertension with hyperlipidemia. 5. End-stage renal disease on hemodialysis. 6. Recurrent episodes of pneumonia before. 7. Status post cholecystectomy. 8. Recent upper endoscopy with biopsy also done. FAMILY HISTORY: Positive for diabetes mellitus and hypertension. SOCIAL HISTORY: Negative for cigarette smoking or alcohol intake. CURRENT MEDICATIONS: Medication lists were reviewed. ALLERGY TO MEDICATION: Unclear. After being admitted to the hospital, the patient was found to have leukocytosis of 11.8, with increa sed BUN 52, creatinine 7.5, with increased potassium initially 6.3, with blood glucose level 123. PHYSICAL EXAMINATION: GENERAL: A 40-year-old female appears to be awake, alert, oriented, with episode of dyspepsia and vo miting through my physical examination. Afebrile with pulse of 80, respiratory rate 20-22, with blood pressure of 166/94. HEENT: Show pale, dry oral mucoid membrane. Nonicteric sclerae. LYMPH NODES: No lymphadenitis or lymphadenopathy. LUNGS: Few scattered crepitation with few rhonchi bilaterally. HEART: Positive S1 and S2. ABDOMEN: Soft. Bowel sounds are present with [id number] distention and diffuse generalized te nderness. No mass or organomegaly. No rebound tenderness or guarding. RECTAL EXAMINATION: The patient refused. EXTREMITIES: With mild lower extremities edematous changes. Positive for AV fistula. No clubbing o r cyanosis. No new reported neurological deficit, sensory or motor. IMPRESSION: 1. Reexacerbation of peptic ulcer disease. 2. Diabetic gastroparesis. 3. Rule out an early case of pancreatitis versus biliary tree disorder. 4. Multiple past medical history including, but not limited to poorly controlled hypertension, hyperl ipidemia, depression, diabetes mellitus, as well as end-stage renal disease. SUGGESTION: 1. Agree with your plan. 2. Correct any underlying electrolyte imbalance. 3. Reglan IV. Erythromycin IV. Abdominal ultrasound with attention to the biliary tree and pancreas . Repeat serum lipase, amylase level. 4. Cancer markers. 5. Proton pump inhibitors. 6. Further evaluation to follow. Thank you for letting me participate in your patient's case management. Colleen Peraza MD cc: 14 TT: 08/12/2016 08:26:24 Confirmation # [id number] Dictation # [id number] elvis
== END 2016-08-09 17:45 | DRG 73 ==
LOC: C.ER 15:17 → C.9E 17:35 → C.9I 21:08 → C.6T 08-03 18:59 → C.5T 08-07 20:44 → C.6T 08-08 08:10
PROVIDERS: ADMIT Internal Medicine; ATTEND Internal Medicine
PROC: 5A1D60Z (ICD-10-PCS; principal; 2016-07-31)
DX: E11.43 Type 2 diabetes mellitus with diabetic autonomic (poly)neuropathy (principal); K31.84 Gastroparesis; N18.6 End stage renal disease; E11.22 Type 2 diabetes mellitus with diabetic chronic kidney disease; I12.0 Hypertensive chronic kidney disease with stage 5 chronic kidney disease or end stage renal disease; D69.59 Other secondary thrombocytopenia; L97.429 Non-pressure chronic ulcer of left heel and midfoot with unspecified severity; E87.5 Hyperkalemia; E11.621 Type 2 diabetes mellitus with foot ulcer; E11.649 Type 2 diabetes mellitus with hypoglycemia without coma; D64.9 Anemia, unspecified; F32.9 Major depressive disorder, single episode, unspecified; K27.9 Peptic ulcer, site unspecified, unspecified as acute or chronic, without hemorrhage or perforation; F41.9 Anxiety disorder, unspecified; E11.319 Type 2 diabetes mellitus with unspecified diabetic retinopathy without macular edema; Z99.2 Dependence on renal dialysis; Z90.49 Acquired absence of other specified parts of digestive tract; Z89.411 Acquired absence of right great toe; Z98.49 Cataract extraction status, unspecified eye; Z88.6 Allergy status to analgesic agent; Z87.891 Personal history of nicotine dependence

== ENCOUNTER 2016-08-12 12:12 | Observation (INO) | payer MEDICARE, OTHER ==
[2016-08-12 12:12] VITALS: BMI 13.2
[2016-08-12 12:20] VITALS: TEMP 98.5; O2SAT 100
--- NOTE | 2016-08-12 12:24 | C.PDOC ---
History Of Present Illness Patient is a 40 year old female who presents to the ER with a complaint of recurring right eye pressure pain for the past 2 days. Patient states she has had similar pain since her cataract surgery in 06/[address] Fuchs. Patient' s reports baseline vision is blurry but can see light and shape. Patient also reports left eye has "normal" vision. Patient notes it gets worse with light. Patient states she took dialaudid 4 MG PO TWISTING MACHINE OPERATOR by NH with no relief. Patient reports having ESRD with hemodialysis every sunday, sunday, and sunday, HTN, IDDM with retinopathy, neuropathy, gastroparesis, and chronic heel ulcer. Denies headache, nausea, vomiting, fever, foreign body, or trauma. CO RECUR R EYE PAIN X 2 DAYS. PS HAS HAD SIM PAIN SINCE CATARACT SURGERY 06/2016 Dr. Fuchs. BASELINE VISION = BLURRY BUT CAN SEE LIGHT AND SHAPES. L EYE VISION "NORMAL". "FEELS LIKE PRESSURE IN IT". WORSE W LIGHT. NO HEART, NV, FEVER, FB, TRAUMA. S/P DILAUDID 4 MG PO TWISTING MACHINE OPERATOR BY NH "IT DIDNT WORK" ESRD on maintenance HD, every MWF, HTN, IDDM with retinopathy, neuropathy, gastroparesis chronic heel ulcer EXAM MOD DIST NONTOXIC HEENT +PHOTOPHOBIA R EYE W EXCESSIVE TEARING; EYELID WNL, NO SWELLING OR REDNESS. PT REFUSING FULL EYE EXAM "UNTIL I GET SOME DILAUDID" REMAINDER NEG EYE EXAM INJECTED CONJUNCTIVA, EOMI; Time Seen by Provider: 08/12/16 12:22 Chief Complaint (Nursing): Eye Problem History Per: Patient History/Exam Limitations: no limitations Onset/Duration Of Symptoms: Days (2) Current Symptoms Are (Timing): Still Present Injury To Eye?: No Quality: Pressure Past Medical History Reviewed: Historical Data, Nursing Documentation, Vital Signs Vital Signs: Last Vital Signs Temp 98.5 F 08/12/16 12:19 Pulse 78 08/12/16 16:58 Resp 18 08/12/16 16:58 BP 198/89 H 08/12/16 16:58 Pulse Ox 100 08/12/16 18:09 - Medical History PMH: Anemia, Depression, Diabetes, Gastritis (diabetic gastroparesis), HTN, Hypercholesterolemia, Pneumonia, End Stage Renal Disease, Chronic Kidney Disease Surgical History: Cholecystectomy - [facility] Procedures BONE BIOPSY NEC (04/07/13) CATARAC PHACOEMULS/ASPIR (09/23/14) CONTRAST ARTERIOGRAM NEC (07/17/13) CONTRAST ARTERIOGRAM-LEG (04/07/13) DIALYSIS ARTERIOVENOSTOM (04/07/13) ESOPHAGOGASTRODUODENOSCOPY [EGD] W/CLOSED BIOPSY (09/19/13) EXCIS DEBRIDE OF WOUND, INFECT, OR BURN (07/17/13) EXCISION OF STOMACH, ENDO, DIAGN (07/09/16) EXCISION OF STOMACH, PYLORUS, ENDO, DIAGN (03/14/15) EXTRACTION OF LEFT LOWER LEG SKIN, EXTERNAL APPROACH (06/16/16) HEMODIALYSIS (01/01/15) INCIS W REM OF FORIEGN BODY OR DEV FROM SKIN & SUBCUT TISSUE (05/27/13) INDIVID PSYCHOTHERAP NEC (04/20/13) INJECT/INFUSE NEC (11/09/13) INSERT LENS AT CATAR EXT (09/23/14) INSPECTION OF UPPER INTESTINAL TRACT, ENDO (03/10/16) OCCUPATIONAL THERAPY (04/30/13) OTHER GROUP THERAPY (04/20/13) OTHER SKIN & SUBQ I D (07/17/13) PERFORMANCE OF URINARY FILTRATION, MULTIPLE (07/31/16) PERFORMANCE OF URINARY FILTRATION, SINGLE (03/29/16) PHYSICAL THERAPY NEC (04/30/13) TRANSFUSE NONAUT RED BLOOD CELLS IN PERIPH VEIN, PERC (06/10/15) ULTRASONOGRAPHY OF RIGHT AND LEFT HEART, TRANSESOPHAGEAL (06/19/15) Family History: States: Diabetes - Social History Hx Tobacco Use: No Hx Alcohol Use: No Hx Substance Use: No - Immunization History Hx Tetanus Toxoid Vaccination: Yes Hx Influenza Vaccination: Yes Hx Pneumococcal Vaccination: Yes Review Of Systems Except As Marked, All Systems Reviewed And Found Negative. Constitutional: Negative for: Fever Eyes: Negative for: Other (Foreign body, trauma) Gastrointestinal: Negative for: Nausea, Vomiting Neurological: Negative for: Headache Physical Exam - Physical Exam Appears: Non-toxic, Other (Moderate distress) Skin: Normal Color, Warm, Dry Head: Atraumatic, Normacephalic Eye(s): bilateral: EOMI, right: Photophobia (w/ excessive tearing), Other ( Eyelid WNL, no swelling or redness, Injected conjunctiva) Oral Mucosa: Moist Chest: Symmetrical Cardiovascular: Rhythm Regular, No Murmur Respiratory: Other (No acute respiratory distress, Patient speaking in complete sentences. ) Gastrointestinal/Abdominal: Soft, No Tenderness Neurological/Psych: Oriented x3, Normal Speech, Normal Cognition ED Course And Treatment O2 Sat by Pulse Oximetry: 100 Eye Treatment - Treatment Performed Eye Treatment: Other: (TETRACAINE) Intraocular Pressure: Left Eye (mm Hg): (52) Progress - Data Reviewed Data Reviewed: Old records ED OBSERVATION Discharge: Yes Date of observation admission: 08/12/16 Time of observation admission: 12:30 - Observation admission statement Patient is being placed in observation because:: EYE PAIN - Goals of Observation Goals of observation are:: SX IMPROVE, OPTHO EVAL - Progress Note Progress Note: 08/12/16 12:56 PENDING PICC LINE CONFIRM PER RN REQUIREMENT. PT REFUSING TETRACAINE "I WANT DILAUDID". 08/12/16 13:36 s/p tonopen measurement attempts x 4, persist error >55 mmHg. L EYE = 52 MMhG PENDING CALLBACK OPTHO 08/12/16 14:18 NO RESPONSE OPTHO OCCUPATIONAL HEALTH PHYSICIAN. D/W DR HAWKINS, STATES WILL CONTACT [facility] OCCUPATIONAL HEALTH PHYSICIAN 08/12/16 14:20 D/W DR MARINELLI: AWARE OF ER FINDINGS. BRIMONIDINE, TIMOLOL, LATANOPROST AND TOPRADEX, WILL EVAL IN ER IN 2-3 HRS 08/12/16 15:59 s/p eval dr marinelli: RECOMMEND DORZOLAMIDE 1 DROP BID AND METHAZOLAMIDE 25 MG BID , CONTINUE OTHER EYE DROP MEDS UNTIL PT EVAL BY DR FUCHS. CLEARED FOR DC Disposition Counseled Patient/Family Regarding: Studies Performed, Diagnosis, Need For Followup, Rx Given - Disposition Disposition: HOME/ ROUTINE Disposition Time: 16:00 Condition: IMPROVED - Clinical Impression Clinical Impression: Pain in right eye, Ocular hypertension - Scribe Statement The provider has reviewed the documentation as recorded by the Scribe Robert Tomlinson All medical record entries made by the Scribe were at my direction and personally dictated by me. I have reviewed the chart and agree that the record accurately reflects my personal performance of the history, physical exam, medical decision making, and the department course for this patient. I have also personally directed, reviewed, and agree with the discharge instructions and disposition. Procedures - Eye Procedure Alcaine Drops Administered: Yes Progress: FLUORESCEIN APPLIED, EYE EXAMINED W BLUE LIGHT. NO CORNEAL ABRASION, SIGNS GLOBE INJURY, FB
[2016-08-12] MEDS ORDERED: Fluorescein 1 mg Ophthalmic Strip OU STA (12:46)
[2016-08-12] MEDS ORDERED: HYDROmorphone 0.5 mg/0.5 ml ISec IVP STA ×2 (12:46→13:40)
[2016-08-12] MEDS ORDERED: HYDROmorphone 1 mg/ml ISec ONE ×2 (12:46→13:20)
[2016-08-12] MEDS ORDERED: Tetracaine 0.5% Ophth 2 ML BOTTLE OU ONE (12:46)
[2016-08-12] MEDS ORDERED: Tetracaine 0.5% Ophth (OR ONLY) ONE (12:47)
[2016-08-12] MEDS ORDERED: Fluorescein 1 mg Ophthalmic Strip ONE (12:48)
[2016-08-12] MEDS ORDERED: Ophthalmic Irrigation, Soln ONE (12:48)
--- NOTE | 2016-08-12 13:58 | RAD ---
PROCEDURE: CHEST RADIOGRAPH, 1 VIEW HISTORY: ER 8B; FOR PICC LINE PLACEMENT COMPARISON: 08/02/2016 FINDINGS: LUNGS: Right PICC line with tip extending to the distal brachial/ proximal right SVC with the tip coiled laterally to the left. Further advancement may be helpful if clinically indicated to the level of the distal right SVC/ cavoatrial junction. Mild venous congestion. Mild patchy left basilar airspace opacity. Subtle lucency at the lateral aspect of the left costophrenic angle may represent Mach artifact. PLEURA: As above. CARDIOVASCULAR: Normal. OSSEOUS STRUCTURES: No significant abnormalities. VISUALIZED UPPER ABDOMEN: Normal. OTHER FINDINGS: None. IMPRESSION: Right PICC line with tip extending to the distal brachial/ proximal right SVC with the tip coiled laterally to the left. Further advancement may be helpful if clinically indicated to the level of the distal right SVC/ cavoatrial junction. Mild venous congestion. Mild patchy left basilar airspace opacity. Subtle lucency at the lateral aspect of the left costophrenic angle may represent Mach artifact.
[2016-08-12] MEDS ORDERED: Timolol 0.25% Ophth SOLN OD STA (14:28)
[2016-08-12] MEDS ORDERED: Brimonidine 0.2% Opth Sol (5ml) OD STA (14:28)
[2016-08-12] MEDS ORDERED: Tobramycin/Dexamethasone (Tobradex) Opth Sol (2.5 ml) OD STA (14:28)
[2016-08-12] MEDS ORDERED: Latanoprost 2.5 ml Opht Soln OD STA (14:28)
--- NOTE | 2016-08-12 15:53 | CP.PCM.CON ---
History of Present Illness - History of Present Illness History of Present Illness: 40 yo F hx ESRD on maintenance HD, every MWF, HTN, IDDM with retinopathy, neuropathy,gastroparesis chronic heel ulcer c/o 2 day hx of R eye pain and photosensitivity. C/o long history of poor vision OD. Poor historian and combative but has recent hx of cataract surgery and retina surgery in June 2016. Past Patient History - Infectious Disease Hx of Infectious Diseases: None - Past Medical History & Family History Past Medical History?: Yes - Past Social History Smoking Status: Former Smoker - CARDIAC Hx Hypercholesterolemia: Yes Hx Hypertension: Yes - PULMONARY Hx Pneumonia: Yes - HEENT Hx HEENT Problems: Yes Hx Cataracts: Yes (09/23/14 left) - RENAL Hx Chronic Kidney Disease: Yes - ENDOCRINE/METABOLIC Hx Diabetes Mellitus Type 2: Yes (neuropathy) - HEMATOLOGICAL/ONCOLOGICAL Hx Anemia: Yes - INTEGUMENTARY Hx Dermatological Problems: Yes Other/Comment: right great toe amputation - MUSCULOSKELETAL/RHEUMATOLOGICAL Hx Falls: No - GASTROINTESTINAL Hx Gastritis: Yes (diabetic gastroparesis) - GENITOURINARY/GYNECOLOGICAL Hx Genitourinary Disorders: Yes Other/Comment: renal failure - PSYCHIATRIC Hx Depression: Yes Hx Substance Use: No - SURGICAL HISTORY Hx Cholecystectomy: Yes - ANESTHESIA Hx Anesthesia: Yes Hx Anesthesia Reactions: No Hx Malignant Hyperthermia: No Meds Allergies/Adverse Reactions: Allergies Allergy/AdvReac Type Severity Reaction Status Date / Time ketorolac tromethamine Allergy Verified 08/12/16 12:23 [From Toradol] morphine Allergy Verified 08/12/16 12:23 tramadol Allergy Verified 08/12/16 12:23 Physical Exam - Eye Exam Additional comments: Pt combative and does not allow intraocular exam OS Va OD LP IOP by tonopen OD 50 OS 25 Conjunctiva tr injection OD Cornea 3+ microcystic edema OD AC Deep and quiet OD PCIOL in good position Results - Vital Signs Recent Vital Signs: Last Vital Signs Temp 98.5 F 08/12/16 12:19 Pulse 86 08/12/16 12:19 Resp 14 08/12/16 12:19 BP 223/67 H 08/12/16 12:19 Pulse Ox 100 08/12/16 15:01 - Labs Labs: Laboratory Results - last 24 hr 08/12/16 12:39 POC Glucose (mg/dL) 91 Assessment & Plan (1) Ocular hypertension of right eye Status: Acute Priority: High Comment: Not angle closure given had cataract surgery June 2016. No signs of neovascularization in anterior segment. Recommend start Xalatan hs/o, Alphagan 2/0, Timolol 2/0, Dorzolamide 2/0, Methazolamide 25 mg po bid. Recommended pt to see her private shank skinner Dr. Fuchs within 3 days after discharge for eval and management.
[2016-08-12] MEDS ORDERED: Dorzolamide 2% Opht Sol 10ml OD STA (15:57)
[2016-08-12 16:59] VITALS: BP 198/89; PULSE 78; RESP 18
== END 2016-08-12 16:04 | disposition home or self-care (01) ==
LOC: C.ER 12:12 → C.9OBSV 12:30
PROVIDERS: ADMIT Emergency Medicine; ATTEND Emergency Medicine
DX: H40.051 Ocular hypertension, right eye (principal); E11.22 Type 2 diabetes mellitus with diabetic chronic kidney disease; N18.6 End stage renal disease; I12.0 Hypertensive chronic kidney disease with stage 5 chronic kidney disease or end stage renal disease; E78.00 Pure hypercholesterolemia, unspecified; Z87.891 Personal history of nicotine dependence; Z99.2 Dependence on renal dialysis; L97.409 Non-pressure chronic ulcer of unspecified heel and midfoot with unspecified severity; E11.621 Type 2 diabetes mellitus with foot ulcer; K31.84 Gastroparesis; G62.9 Polyneuropathy, unspecified; Z79.4 Long term (current) use of insulin; H57.11 Ocular pain, right eye; E11.319 Type 2 diabetes mellitus with unspecified diabetic retinopathy without macular edema; E11.43 Type 2 diabetes mellitus with diabetic autonomic (poly)neuropathy
CPT/HCPCS: 71010; 82948; 96374; 99281; G0378

== ENCOUNTER 2016-08-14 19:59 | Inpatient (IN) | payer MEDICARE, OTHER ==
[2016-08-14 20:00] VITALS: BMI 13.2
--- NOTE | 2016-08-14 21:23 | C.PDOC ---
History Of Present Illness 40 year old female sent to the ED from a group home due to several episodes of vomiting, as well as appearing lethargic. As per NH and EMS, patient did not get dialyzed today. She has h/o HTN, ESRD ON HD, DM, anemia, hyperlipidemia. History limited due to patient's condition. Time Seen by Provider: 08/14/16 20:31 Chief Complaint (Nursing): Weakness/Neurological Deficit History Per: EMS, Other (correction papers) History/Exam Limitations: clinical condition Onset/Duration Of Symptoms: Hrs Current Symptoms Are (Timing): Still Present Seizure Or Post-ictal Symptoms: None Fall Associated With With Symptoms: No Severity: Moderate Past Medical History Reviewed: Historical Data, Nursing Documentation, Vital Signs Vital Signs: Last Vital Signs Temp 98.9 F 08/17/16 16:03 Pulse 76 08/17/16 16:03 Resp 18 08/17/16 16:03 BP 146/76 08/17/16 16:03 Pulse Ox 99 08/19/16 17:42 - Medical History PMH: Anemia, Depression, Diabetes, Gastritis (diabetic gastroparesis), HTN, Hypercholesterolemia, Pneumonia, End Stage Renal Disease, Chronic Kidney Disease Surgical History: Cholecystectomy - [facility] Procedures BONE BIOPSY NEC (04/07/13) CATARAC PHACOEMULS/ASPIR (09/23/14) CONTRAST ARTERIOGRAM NEC (07/17/13) CONTRAST ARTERIOGRAM-LEG (04/07/13) DIALYSIS ARTERIOVENOSTOM (04/07/13) ESOPHAGOGASTRODUODENOSCOPY [EGD] W/CLOSED BIOPSY (09/19/13) EXCIS DEBRIDE OF WOUND, INFECT, OR BURN (07/17/13) EXCISION OF STOMACH, ENDO, DIAGN (07/09/16) EXCISION OF STOMACH, PYLORUS, ENDO, DIAGN (03/14/15) EXTRACTION OF LEFT LOWER LEG SKIN, EXTERNAL APPROACH (06/16/16) HEMODIALYSIS (01/01/15) INCIS W REM OF FORIEGN BODY OR DEV FROM SKIN & SUBCUT TISSUE (05/27/13) INDIVID PSYCHOTHERAP NEC (04/20/13) INJECT/INFUSE NEC (11/09/13) INSERT LENS AT CATAR EXT (09/23/14) INSPECTION OF UPPER INTESTINAL TRACT, ENDO (03/10/16) OCCUPATIONAL THERAPY (04/30/13) OTHER GROUP THERAPY (04/20/13) OTHER SKIN & SUBQ I D (07/17/13) PERFORMANCE OF URINARY FILTRATION, MULTIPLE (08/14/16) PERFORMANCE OF URINARY FILTRATION, SINGLE (03/29/16) PHYSICAL THERAPY NEC (04/30/13) TRANSFUSE NONAUT RED BLOOD CELLS IN PERIPH VEIN, PERC (06/10/15) ULTRASONOGRAPHY OF RIGHT AND LEFT HEART, TRANSESOPHAGEAL (06/19/15) Family History: States: Diabetes - Social History Hx Tobacco Use: No Hx Alcohol Use: No Hx Substance Use: No - Immunization History Hx Tetanus Toxoid Vaccination: Yes Hx Influenza Vaccination: Yes Hx Pneumococcal Vaccination: Yes Review Of Systems Review Of Systems: ROS cannot be obtained secondary to pt's inabilty to answer questions. (limited secondary to clinical condition) Gastrointestinal: Positive for: Nausea, Vomiting Neurological: Positive for: Other (+Lethargic) Physical Exam - Physical Exam Appears: Non-toxic, No Acute Distress, Other (+Drowsy) Skin: Normal Color, Warm, Dry Head: Atraumatic, Normacephalic Eye(s): bilateral: PERRL, EOMI, Other (3-4mm and reactive B/L) Oral Mucosa: Moist Chest: Symmetrical Cardiovascular: Rhythm Regular Respiratory: No Accessory Muscle Use, Rales (+Rales bases B/L), No Rhonchi, No Wheezing Gastrointestinal/Abdominal: Bowel Sounds, Soft, Tenderness (+Diffuse mild tenderness to palpation), No Distention, No Guarding, No Rebound Extremity: Pedal Edema (+1 pitting edema to the lower extremities), No Calf Tenderness Neurological/Psych: Other (+Awake and alert, appears drowsy) ED Course And Treatment - Laboratory Results Result Diagrams: 08/15/16 14:58 08/15/16 14:58 ECG: Interpreted By Me, Viewed By Me (NSR 72 bpm, right axis deviation, RBBB, peaked T waves V2, V3, V4, no acute ST changes) ECG Interpretation: Abnormal O2 Sat by Pulse Oximetry: 99 (Nasal cannula) Pulse Ox Interpretation: Normal Progress Note: Blood work, CT Head w/o contrast, CXR, EKG, ordered and reviewed. Initial CMP grossly hemolyzed, K >8. Second CMP ordered and still mildly hemolyzed as per lab, K still elevated. IV Calcium gluconate, Bicarb amp , inulin + D50, albuterol ordered. Pending call back from nephrology for dialysis. Discussed patient with PMD Dr. Gamez, he agrees with admission to his service. - Physician Consult Information Physician Contacted: Denisha Orellana Outcome Of Conversation: Spoke with nephrology at approx 10:20pm, she will dialyze patient tonight. Pending dialysis nurse electrical contractor, who will speak with her for orders. Critical Care Time - Critical Care Note Total Time (in mins): 40 Documented critical care: time excludes all time spent performing seperately billable procedures. Disposition - Disposition Disposition: HOSPITALIZED Disposition Time: 23:12 Condition: STABLE - Clinical Impression Clinical Impression: ESRD on hemodialysis, Hyperkalemia, CHF (congestive heart failure), Fluid overload, Elevated brain natriuretic peptide (BNP) level, Hypertension, Hypertensive CKD, ESRD on dialysis - Scribe Statement The provider has reviewed the documentation as recorded by the Scribe Cuco Shannon. Provider Attestation: All medical record entries made by the Scribe were at my direction and personally dictated by me. I have reviewed the chart and agree that the record accurately reflects my personal performance of the history, physical exam, medical decision making, and the department course for this patient. I have also personally directed, reviewed, and agree with the discharge instructions and disposition. Decision To Admit - Pt Status Changed To: Hospital Disposition Of: Inpatient - Admit Certification Admit to Inpatient:: After my assessment, the patient will require hospitalization for at least two midnights. This is because of the severity of symptoms shown, intensity of services needed, and/or the medical risk in this patient being treated as an outpatient. - InPatient: Physician Admission Certification: I certify that this patient requires 2 or more midnights of care for the following reason:: see notes - . Bed Request Type: Telemetry Admitting Physician: Sal Gamez Patient Diagnosis: ESRD on hemodialysis, Hyperkalemia, CHF (congestive heart failure), Fluid overload, Elevated brain natriuretic peptide (BNP) level, Hypertension, Hypertensive CKD, ESRD on dialysis
[2016-08-14 21:42] LABS: BASO # 0.1 K/uL (0.0-0.2); BASO % 0.7 % (0.0-2.0); EOS # 0.6 K/uL (0.0-0.7); EOS % 4.1 % (0.0-4.0); HEMATOCRIT 35.7 % (34.0-47.0); LYMPH # 0.9 K/uL (1.0-4.3); LYMPH % 6.7 % (20.0-40.0); MEAN CELL VOLUME 92.4 fL (81.0-99.0); MEAN CORPUSCULAR HEMOGLOBIN 30.1 pg (27.0-31.0); MEAN CORPUSCULAR HGB CONC 32.6 g/dL (33.0-37.0); MEAN PLATELET VOLUME 9.4 fL (7.2-11.7); MONO # 1.3 K/uL (0.0-0.8); NRBC % 0.1 % (0.0-2.0); PLATELET COUNT 176 K/uL (130-400); RED CELL DISTRIBUTION WIDTH 15.8 % (11.5-14.5)
[2016-08-14 21:48] LABS: WHITE BLOOD COUNT 14.2 K/uL (4.8-10.8)
[2016-08-14 22:14] LABS: ALB/GLOB RATIO 1.2 (1.0-2.1); BILIRUBIN,TOTAL 0.9 mg/dL (0.2-1.3); CALCIUM 10.3 mg/dl (8.6-10.4); TOTAL PROTEIN 8.1 g/dL (6.3-8.3)
[2016-08-14 22:16] LABS: TROPONIN I 0.038 ng/mL (0.00-0.120)
[2016-08-14 22:18] LABS: BASOPHIL 1 % (0-2); EOSINOPHIL 5 % (0-4); NEUTROPHIL 81 % (50-75); TOTAL CELLS COUNTED 100
[2016-08-14] MEDS ORDERED: Calcium Gluconate 4.65 MEQ in Dextrose 5% In Water 100 ML IV ONE (22:18)
[2016-08-14 22:21] LABS: POTASSIUM 8.1 mmol/L (3.6-5.2)
[2016-08-14] MEDS ORDERED: Calcium Gluconate 4.65 mEq/10 ml Inj ONE (22:29)
[2016-08-14] MEDS ORDERED: Sodium Bicarbonate (8.4%) 50 Meq Syringe IVP ONE (22:29)
[2016-08-14] MEDS ORDERED: (Novolin R) Insulin Human Regular 100 units/ml vial IV ONE (22:30)
[2016-08-14] MEDS ORDERED: Calcium Gluconate 4.65 mEq/10 ml Inj IV ONE (22:30)
[2016-08-14] MEDS ORDERED: Dextrose 50% SYRINGE Inj (50 ml) IVP STA (22:30)
[2016-08-14 22:34] LABS: GIANT PLATELETS PRESENT; LARGE PLATELETS PRESENT
[2016-08-14] MEDS ORDERED: Dextrose 50% SYRINGE Inj (50 ml) ONE (22:37)
[2016-08-14] MEDS ORDERED: Sodium Bicarbonate (8.4%) 50 Meq Syringe ONE (22:37)
[2016-08-14] MEDS ORDERED: (Novolin R) Insulin Human Regular 100 units/ml vial ONE (22:37)
--- NOTE | 2016-08-14 23:08 | CT ---
EXAM: CT Head Without Intravenous Contrast CLINICAL HISTORY: 40 years old, female; Signs and symptoms; Altered mental status/memory loss and weakness, extremity; Additional info: AMS TECHNIQUE: Axial computed tomography images of the head/brain without intravenous contrast. This CT exam was performed using one or more of the following dose reduction techniques: automated exposure control, adjustment of the mA and/or kV according to patient size, and/or use of iterative reconstruction technique. EXAM DATE/TIME: 08/14/2016 9:18 PM COMPARISON: No relevant prior studies available. FINDINGS: LIMITATIONS: Exam is somewhat limited by mild streak/motion artifact. BRAIN: Moderate areas of low density seen in the periventricular and deep white matter bilaterally. Multiple small focal areas of low density seen in the basal ganglia bilaterally, with an appearance most suggestive of bilateral old/chronic lacunar infarcts. Mild to moderate diffuse cortical atrophy and ventriculomegaly, which appear advanced for age. Recommend clinical correlation. No significant acute abnormality identified. No acute hemorrhage seen within the brain. No acute extra-axial fluid collections visualized. No evidence of significant mass effect within the brain. No CT findings to suggest an acute, large territorial infarct, however, small or early acute infarcts may not be visible on CT. VENTRICLES: See above. BONES/JOINTS: No acute fractures or other acute bony abnormality noted. SOFT TISSUES: No acute abnormality of the visualized soft tissues is seen. VASCULATURE: Atherosclerotic calcification. SINUSES: Visualized paranasal sinuses appear clear. MASTOID AIR CELLS: Mastoid air cells appear clear. IMPRESSION: - No acute findings seen within the brain. There is no evidence of intracranial hemorrhage. - White matter disease. This is a nonspecific finding, and is most likely secondary to chronic small vessel ischemic changes, as there is additional evidence of chronic ischemic change in this patient. However, other etiologies of white matter disease are not entirely excluded, including demyelinating disease, in a patient of this age. Recommend clinical correlation. - See above for remaining findings.
[2016-08-14] MEDS ORDERED: Nitroglycerin 2% Ointment Foilpak UD TOP PRN (23:16)
[2016-08-14] MEDS ORDERED: HEPARIN SODIUM PORCINE 5000 UNIT SQ SCH (23:30)
[2016-08-15] MEDS ORDERED: ENALAPRIL 2.5 MG PO SCH
[2016-08-15] MEDS: (Novolin R) Insulin Human Regular 100 units/ml vial SC SCH ×4 (07:50→22:03)
--- NOTE | 2016-08-15 08:29 | RAD ---
PROCEDURE: CHEST RADIOGRAPH, 1 VIEW HISTORY: AMS COMPARISON: 08/12/2016 FINDINGS: LUNGS: Lines and tubes stable position. Persistent mild to moderate venous congestion. Right hilar prominence. Patchy left basilar airspace opacity. PLEURA: As above. CARDIOVASCULAR: Normal. OSSEOUS STRUCTURES: No significant abnormalities. VISUALIZED UPPER ABDOMEN: Normal. OTHER FINDINGS: None. IMPRESSION: Lines and tubes stable position. Persistent mild to moderate venous congestion. Right hilar prominence. Patchy left basilar airspace opacity.
[2016-08-15] MEDS ORDERED: DEXAMETHASONE OD SCH ×2 (10:00)
[2016-08-15] MEDS ORDERED: [UNRECOGNIZED DRUG - OTHER] OD SCH (10:00)
[2016-08-15] MEDS ORDERED: TOBRAMYCIN OD SCH ×2 (10:00)
[2016-08-15] MEDS: Neomycin-Polymyxin-Gramicidin Ophth Soln (10 ml) OD SCH ×4 (11:00→22:20)
[2016-08-15] MEDS: Timolol 0.25% Ophth SOLN OD SCH ×2 (11:00→19:01)
--- NOTE | 2016-08-15 11:17 | CP.PCM.CON ---
History of Present Illness - History of Present Illness History of Present Illness: 40 y/o female with ESRD on HD, IDDM.uncontrolled HTN ? gastroparesis with N&V & abdominal pain was recently discharged from after Tx of abd pain was sent back to ER for several episodes of vomiting & abd pain. In ER ,pt was found to have K+ of 8.1 & evidence of volume overload. Pt was given urgent dialysis last night Past Patient History - Infectious Disease Hx of Infectious Diseases: None - Past Medical History & Family History Past Medical History?: Yes - Past Social History Smoking Status: Never Smoked - CARDIAC Hx Hypercholesterolemia: Yes Hx Hypertension: Yes - PULMONARY Hx Pneumonia: Yes - HEENT Hx HEENT Problems: Yes Hx Cataracts: Yes (09/23/14 left) - RENAL Date of Last Dialysis Treatment: 08/15/16 - ENDOCRINE/METABOLIC Hx Diabetes Mellitus Type 1: Yes - HEMATOLOGICAL/ONCOLOGICAL Hx Anemia: Yes - INTEGUMENTARY Hx Dermatological Problems: Yes Other/Comment: right great toe amputation - MUSCULOSKELETAL/RHEUMATOLOGICAL Hx Falls: No - GASTROINTESTINAL Hx Gastritis: Yes (diabetic gastroparesis) - GENITOURINARY/GYNECOLOGICAL Hx Genitourinary Disorders: Yes Other/Comment: renal failure - PSYCHIATRIC Hx Substance Use: No - SURGICAL HISTORY Hx Cholecystectomy: Yes - ANESTHESIA Hx Anesthesia: Yes Hx Anesthesia Reactions: No Hx Malignant Hyperthermia: No Meds Allergies/Adverse Reactions: Allergies Allergy/AdvReac Type Severity Reaction Status Date / Time ketorolac tromethamine Allergy Verified 08/14/16 20:21 [From Toradol] morphine Allergy Verified 08/14/16 20:21 tramadol Allergy Verified 08/14/16 20:21 - Medications Medications: Current Medications Calcium Acetate (Phoslo) 667 mg PO TID COUNT INCLUDES [facility] Last Admin: 08/15/16 09:07 Dose: 667 mg Carvedilol (Coreg) 12.5 mg PO BID COUNT INCLUDES [facility] Last Admin: 08/15/16 09:07 Dose: 12.5 mg Clonidine HCl (Catapres-Tts3 0.3 Mg/24 Hr) 2 patch TD Q7D@1000 [facility]CLUDES [facility] Heparin Sodium (Porcine) (Heparin) 5,000 units SC Q8H COUNT [facility]CLUDES [facility] Last Admin: 08/15/16 06:45 Dose: 5,000 units Home Med (Vasotec) 2.5 mg PO Q6 COUNT INCLUDES [facility] Hydralazine HCl (Apresoline) 100 mg PO Q8 COUNT [facility]CLUD[facility] Last Admin: 08/15/16 05:18 Dose: 100 mg Hydromorphone HCl (Dilaudid) 2 mg PO Q4 PRN PRN Reason: Pain, severe (8-10) Insulin Human Regular (Novolin R) 0 unit SC ACHS [facility] PRN Reason: Protocol Last Admin: 08/15/16 07:50 Dose: Not Given Metoclopramide HCl (Reglan) 10 mg IVP Q6 [facility]CLUD[facility] Last Admin: 08/15/16 05:20 Dose: 10 mg Neomycin/Polymyxin/Gramicidin (Gramicidin/Neomycin/Polymyxin B) 0 ml OD QID COUNT [facility]CLUDES [facility] Nitroglycerin (Nitro-Bid 2% Oint) 1 ea TOP Q6 PRN PRN Reason: elevated HR Last Admin: 08/15/16 02:24 Dose: 1 ea Pantoprazole Sodium (Protonix Inj) 40 mg IVP DAILY [facility]CLUD[facility] Last Admin: 08/15/16 09:08 Dose: 40 mg Timolol Maleate (Timoptic 0.25% Ophth Soln) 1 drop OD BID COUNT [facility]CLUDES [facility] Physical Exam - Constitutional Appears: No Acute Distress - Head Exam Head Exam: ATRAUMATIC, NORMOCEPHALIC - Eye Exam Additional comments: Sclera anicteric - ENT Exam ENT Exam: Mucous Membranes Moist - Neck Exam Additional comments: Neck supple - Respiratory Exam Respiratory Exam: NORMAL BREATHING PATTERN Additional comments: Lungs clear - Cardiovascular Exam Cardiovascular Exam: REGULAR RHYTHM - GI/Abdominal Exam GI & Abdominal Exam: Soft Additional comments: Mild diffuse tenderness - Extremities Exam Additional comments: No edema or cyanosis Results - Vital Signs Recent Vital Signs: Last Vital Signs Temp 97.9 F 08/15/16 07:05 Pulse 77 08/15/16 07:05 Resp 20 08/15/16 07:05 BP 171/78 H 08/15/16 07:05 Pulse Ox 98 08/15/16 07:05 - Labs Result Diagrams: 08/14/16 21:39 08/14/16 21:47 Labs: Laboratory Results - last 24 hr 08/15/16 06:21 POC Glucose (mg/dL) 93 Assessment & Plan - Assessment and Plan (Free Text) Assessment: ESRD on HD Volume overload Uncontrolled HTN secondary to above Chronic abdominal pain IDDM with complications Plan: Extradialysis is ordered for today for fluid removal Stat labs ordered to f/u on K+ level & leukocytosis Pt has had repeated admissions for volume overload despite the fact that her fluisds are restricted & she has persistent vomiting Suggest cardiac evaluation
--- NOTE | 2016-08-15 11:45 | CARD ---
APPROVED REPORT EKG Measurement Heart [id number] <Conclusion> Normal sinus rhythm Possible Left atrial enlargement Right superior axis deviation Pulmonary disease pattern Incomplete right bundle branch block Right ventricular hypertrophy Abnormal ECG
[2016-08-15] MEDS ORDERED: HYDROmorphone 1 mg/ml ISec IVP STA (13:26)
[2016-08-15 15:02] LABS: HEMATOCRIT 33.6 % (34.0-47.0); MEAN CELL VOLUME 92.4 fL (81.0-99.0); MEAN CORPUSCULAR HEMOGLOBIN 30.6 pg (27.0-31.0); MEAN CORPUSCULAR HGB CONC 33.1 g/dL (33.0-37.0); MEAN PLATELET VOLUME 9.1 fL (7.2-11.7); RED CELL DISTRIBUTION WIDTH 15.6 % (11.5-14.5); WHITE BLOOD COUNT 9.4 K/uL (4.8-10.8)
[2016-08-15 15:13] LABS: POTASSIUM 4.4 mmol/L (3.6-5.2)
[2016-08-15 15:17] LABS: CALCIUM 9.1 mg/dl (8.6-10.4); PHOSPHOROUS 2.3 mg/dL (2.5-4.5)
[2016-08-15] MEDS: Enalaprilat 2.5 MG/2 ML IVP SCH ×2 (15:52→22:19)
--- NOTE | 2016-08-15 21:02 | CP.PCM.HP ---
History of Present Illness - History of Present Illness History of Present Illness: Cheif complain: acute onset of nausea/ vomitting and abdominal pain x few hours HPI: 40 y/o AA female with ESRD on HD, IDDM.uncontrolled HTN , complications of Diabetes including gastroparesis , peripheral neuropathy resident of [facility] yesterday developed acute onset of N&V & abdominal pain she was given some treatment at snf but her B.P was high 230 systolic so she was transferred to ER, had urgent dialysis because of K which was 8.1 high , she was recently discharged from after Tx of abd pain was sent back to ER for several episodes of vomiting & abd pain. Present on Admission - Present on Admission Any Indicators Present on Admission: No Review of Systems - Review of Systems Systems not reviewed;Unavailable: Acuity of Condition - Constitutional Constitutional: Anorexia, Fatigue, Lethargy, Weakness - EENT Eyes: absent: As Per HPI, Blind Spots, Blurred Vision, Change in Vision, Decreased Night Vision, Diplopia, Discharge, Dry Eye, Exophthalmos, Floaters, Irritation, Itchy Eyes, Loss of Peripheral Vision, Pain, Photophobia, Requires Corrective Lenses, Sees Flashes, Spots in Vision, Tunnel Vision, Other Visual Disturbances, Loss of Vision, Other - Cardiovascular Cardiovascular: Dyspnea on Exertion, Leg Edema - Respiratory Respiratory: Cough - Gastrointestinal Gastrointestinal: Abdominal Pain, Dyspepsia, Nausea, Vomiting - Genitourinary Additional comments: on HD ESRD anuria - Musculoskeletal Musculoskeletal: Muscle Weakness, Myalgias, Numbness, Tingling - Neurological Neurological: Headaches - Psychiatric Psychiatric: Anxiety - Endocrine Endocrine: Fatigue Past Patient History - Infectious Disease Hx of Infectious Diseases: None - Past Medical History & Family History Past Medical History?: Yes - Past Social History Smoking Status: Never Smoked - CARDIAC Hx Hypercholesterolemia: Yes Hx Hypertension: Yes - PULMONARY Hx Pneumonia: Yes - HEENT Hx HEENT Problems: Yes Hx Cataracts: Yes (09/23/14 left) - RENAL Date of Last Dialysis Treatment: 08/15/16 - ENDOCRINE/METABOLIC Hx Diabetes Mellitus Type 1: Yes - HEMATOLOGICAL/ONCOLOGICAL Hx Anemia: Yes - INTEGUMENTARY Hx Dermatological Problems: Yes Other/Comment: right great toe amputation - MUSCULOSKELETAL/RHEUMATOLOGICAL Hx Falls: No - GASTROINTESTINAL Hx Gastritis: Yes (diabetic gastroparesis) - GENITOURINARY/GYNECOLOGICAL Hx Genitourinary Disorders: Yes Other/Comment: renal failure - PSYCHIATRIC Hx Substance Use: No - SURGICAL HISTORY Hx Cholecystectomy: Yes - ANESTHESIA Hx Anesthesia: Yes Hx Anesthesia Reactions: No Hx Malignant Hyperthermia: No Meds Allergies/Adverse Reactions: Allergies Allergy/AdvReac Type Severity Reaction Status Date / Time ketorolac tromethamine Allergy Verified 10/02/16 06:15 [From Toradol] morphine Allergy Verified 10/02/16 06:15 tramadol Allergy Verified 10/02/16 06:15 Physical Exam - Constitutional Appears: No Acute Distress - Eye Exam Eye Exam: EOMI, Normal appearance, PERRL Pupil Exam: NORMAL ACCOMODATION, PERRL - Respiratory Exam Respiratory Exam: Clear to Auscultation Bilateral, NORMAL BREATHING PATTERN - Cardiovascular Exam Cardiovascular Exam: REGULAR RHYTHM, +S1, +S2 - GI/Abdominal Exam GI & Abdominal Exam: Normal Bowel Sounds, Soft. absent: Tenderness - Extremities Exam Additional comments: left heel ulcer perpipheral pulses are diminished Results - Vital Signs Recent Vital Signs: Last Vital Signs Temp 99.7 F H 08/15/16 18:39 Pulse 74 08/15/16 18:39 Resp 20 08/15/16 18:39 BP 182/75 H 08/15/16 19:00 Pulse Ox 98 08/15/16 18:39 - Labs Result Diagrams: 08/15/16 14:58 08/15/16 14:58 Labs: Laboratory Results - last 24 hr 08/15/16 08/15/16 08/15/16 06:21 11:06 14:58 WBC 9.4 RBC 3.63 L Hgb 11.1 Hct 33.6 L MCV 92.4 MCH 30.6 MCHC 33.1 RDW 15.6 H Plt Count 173 MPV 9.1 Sodium 137 Potassium 4.4 Chloride 92 L Carbon Dioxide 30 Anion Gap 19 BUN 26 H Creatinine 4.6 H Est GFR ( Amer) 13 Est GFR (Non-Af Amer) 11 POC Glucose (mg/dL) 93 108 Random Glucose 91 Calcium 9.1 Phosphorus 2.3 L 08/15/16 16:01 WBC RBC Hgb Hct MCV MCH MCHC RDW Plt Count MPV Sodium Potassium Chloride Carbon Dioxide Anion Gap BUN Creatinine Est GFR ( Amer) Est GFR (Non-Af Amer) POC Glucose (mg/dL) 93 Random Glucose Calcium Phosphorus Assessment & Plan (1) Abdominal pain Status: Acute (2) DM2 (diabetes mellitus, type 2) Status: Chronic (3) Hypertension Status: Chronic (4) ESRD on hemodialysis Status: Acute (5) Intractable vomiting with nausea Status: Acute
[2016-08-16] MEDS: Enalaprilat 2.5 MG/2 ML IVP SCH ×3 (06:06→22:03)
[2016-08-16] MEDS: (Novolin R) Insulin Human Regular 100 units/ml vial SC SCH ×4 (07:30→21:59)
[2016-08-16] MEDS: Timolol 0.25% Ophth SOLN OD SCH ×2 (09:39→18:05)
[2016-08-16] MEDS: Neomycin-Polymyxin-Gramicidin Ophth Soln (10 ml) OD SCH ×4 (09:43→22:02)
[2016-08-16] MEDS ORDERED: Nitroglycerin 2% Ointment Foilpak UD TOP PRN (11:58)
--- NOTE | 2016-08-16 15:54 | CP.PCM.PN ---
Subjective - Date & Time of Evaluation Date of Evaluation: 08/16/16 Time of Evaluation: 03:00 - Subjective Subjective: Feels better today Objective - Vital Signs/Intake and Output Vital Signs (last 24 hours): Temp Pulse Resp BP Pulse Ox 98.6 F 75 18 148/75 97 08/16/16 08:07 08/16/16 08:07 08/16/16 08:07 08/16/16 14:39 08/16/16 08:07 Intake and Output: 08/16/16 08/16/16 06:59 18:59 Intake Total 320 Balance 320 - Medications Medications: Current Medications Calcium Acetate (Phoslo) 667 mg PO TIDCC [facility] Last Admin: 08/16/16 14:37 Dose: 667 mg Carvedilol (Coreg) 25 mg PO BID [facility] Last Admin: 08/16/16 09:41 Dose: 25 mg Clonidine HCl (Catapres-Tts3 0.3 Mg/24 Hr) 2 patch TD Q7D@1000 [facility] Enalaprilat (Vasotec) 1.25 mg IVP Q8 [facility] Last Admin: 08/16/16 14:39 Dose: Not Given Heparin Sodium (Porcine) (Heparin) 5,000 units SC Q8H [facility] Last Admin: 08/16/16 06:47 Dose: 5,000 units Hydralazine HCl (Apresoline) 100 mg PO Q8 [facility] Last Admin: 08/16/16 14:38 Dose: 100 mg Hydromorphone HCl (Dilaudid) 2 mg PO Q4 PRN PRN Reason: Pain, severe (8-10) Insulin Human Regular (Novolin R) 0 unit SC ACHS [facility] PRN Reason: Protocol Last Admin: 08/16/16 12:05 Dose: 1 unit Metoclopramide HCl (Reglan) 10 mg IVP Q6 [facility] Last Admin: 08/16/16 12:15 Dose: Not Given Neomycin/Polymyxin/Gramicidin (Gramicidin/Neomycin/Polymyxin B) 0 ml OD QID [facility] Last Admin: 08/16/16 14:38 Dose: 1 drop Nitroglycerin (Nitro-Bid 2% Oint) 1 ea TOP Q6 PRN PRN Reason: elevated HR Pantoprazole Sodium (Protonix Inj) 40 mg IVP DAILY [facility] Last Admin: 04/12/17 09:44 Dose: 40 mg Timolol Maleate (Timoptic 0.25% Ophth Soln) 1 drop OD BID [facility] Last Admin: 08/16/16 09:39 Dose: 1 applic - Labs Labs: 08/15/16 14:58 08/15/16 14:58 PT 11.2 SECONDS (9.7-12.2) 08/14/16 21:29 INR 1.0 08/14/16 21:29 APTT 37 SECONDS (21-34) H 08/14/16 21:29 - Respiratory Exam Additional comments: Lungs clear - Cardiovascular Exam Cardiovascular Exam: REGULAR RHYTHM - Extremities Exam Additional comments: No edema Assessment and Plan - Assessment and Plan (Free Text) Assessment: ESRD on HD HTN IDDM Abdominal pain Plan: Stable on dialysis. Volume overload corrected. BP improved HD tomorrow
--- NOTE | 2016-08-16 22:57 | CP.PCM.PN ---
Subjective - Date & Time of Evaluation Date of Evaluation: 08/16/16 Time of Evaluation: 09:21 - Subjective Subjective: pt is seen and examined, B.P coming down, Pt is for HD today agagin, pt states that her nausea and vomiting had decreased Objective - Vital Signs/Intake and Output Vital Signs (last 24 hours): Temp Pulse Resp BP Pulse Ox 98.9 F 75 18 185/95 H 100 08/16/16 15:23 08/16/16 16:00 08/16/16 15:23 08/16/16 22:03 08/16/16 15:23 - Medications Medications: Current Medications Calcium Acetate (Phoslo) 667 mg PO TIDCC [facility] Last Admin: 08/16/16 18:05 Dose: 667 mg Carvedilol (Coreg) 25 mg PO BID [facility] Last Admin: 08/16/16 18:05 Dose: 25 mg Clonidine HCl (Catapres-Tts3 0.3 Mg/24 Hr) 2 patch TD Q7D@1000 [facility] Enalaprilat (Vasotec) 1.25 mg IVP Q8 [facility] Last Admin: 08/16/16 14:39 Dose: Not Given Heparin Sodium (Porcine) (Heparin) 5,000 units SC Q8H [facility] Last Admin: 08/16/16 21:58 Dose: 5,000 units Hydralazine HCl (Apresoline) 100 mg PO Q8 [facility] Last Admin: 08/16/16 21:57 Dose: 100 mg Hydromorphone HCl (Dilaudid) 2 mg PO Q4 PRN PRN Reason: Pain, severe (8-10) Last Admin: 08/16/16 18:06 Dose: 2 mg Insulin Human Regular (Novolin R) 0 unit SC ACHS [facility] PRN Reason: Protocol Last Admin: 08/16/16 21:59 Dose: Not Given Metoclopramide HCl (Reglan) 10 mg IVP Q6 [facility] Last Admin: 08/16/16 18:06 Dose: 10 mg Neomycin/Polymyxin/Gramicidin (Gramicidin/Neomycin/Polymyxin B) 0 ml OD QID [facility] Last Admin: 08/16/16 22:02 Dose: 1 drop Nitroglycerin (Nitro-Bid 2% Oint) 1 ea TOP Q6 PRN PRN Reason: elevated HR Pantoprazole Sodium (Protonix Inj) 40 mg IVP DAILY [facility] Last Admin: 08/16/16 09:44 Dose: 40 mg Timolol Maleate (Timoptic 0.25% Ophth Soln) 1 drop OD BID [facility] Last Admin: 08/16/16 18:05 Dose: 1 applic - Labs Labs: 08/15/16 14:58 08/15/16 14:58 PT 11.2 SECONDS (9.7-12.2) 08/14/16 21:29 INR 1.0 08/14/16 21:29 APTT 37 SECONDS (21-34) H 08/14/16 21:29 - Constitutional Appears: No Acute Distress - Head Exam Head Exam: ATRAUMATIC, NORMAL INSPECTION, NORMOCEPHALIC - Eye Exam Eye Exam: EOMI, Normal appearance, PERRL Pupil Exam: NORMAL ACCOMODATION, PERRL - ENT Exam ENT Exam: Mucous Membranes Moist, Normal Exam - Respiratory Exam Respiratory Exam: Clear to Ausculation Bilateral, NORMAL BREATHING PATTERN - Cardiovascular Exam Cardiovascular Exam: REGULAR RHYTHM, +S1, +S2. absent: Murmur - GI/Abdominal Exam GI & Abdominal Exam: Soft, Normal Bowel Sounds. absent: Tenderness Assessment and Plan (1) Abdominal pain Status: Acute (2) DM2 (diabetes mellitus, type 2) Status: Chronic (3) Hypertension Status: Chronic (4) ESRD on hemodialysis Status: Acute (5) Intractable vomiting with nausea Status: Acute
[2016-08-17] MEDS: Enalaprilat 2.5 MG/2 ML IVP SCH ×2 (05:50→13:12)
[2016-08-17] MEDS: (Novolin R) Insulin Human Regular 100 units/ml vial SC SCH ×2 (07:34→11:30)
[2016-08-17 09:18] VITALS: RESP 18
[2016-08-17] MEDS: Neomycin-Polymyxin-Gramicidin Ophth Soln (10 ml) OD SCH ×2 (10:00→14:17)
[2016-08-17] MEDS: Timolol 0.25% Ophth SOLN OD SCH (10:00)
--- NOTE | 2016-08-17 10:44 | CP.PCM.PN ---
Subjective - Date & Time of Evaluation Date of Evaluation: 08/17/16 Time of Evaluation: 10:15 - Subjective Subjective: Currently on dialysis. Alert Objective - Vital Signs/Intake and Output Vital Signs (last 24 hours): Temp Pulse Resp BP Pulse Ox 97.5 F L 74 18 184/74 H 98 08/17/16 09:30 08/17/16 09:30 08/17/16 09:30 08/17/16 09:30 08/17/16 09:14 Intake and Output: 08/17/16 08/17/16 06:59 18:59 Intake Total 560 Balance 560 - Medications Medications: Current Medications Calcium Acetate (Phoslo) 667 mg PO TIDCC [facility] Last Admin: 08/17/16 08:09 Dose: 667 mg Carvedilol (Coreg) 25 mg PO BID [facility] Last Admin: 08/17/16 08:36 Dose: 25 mg Clonidine HCl (Catapres-Tts3 0.3 Mg/24 Hr) 2 patch TD Q7D@1000 [facility] Enalaprilat (Vasotec) 1.25 mg IVP Q8 [facility] Last Admin: 08/17/16 05:50 Dose: 1.25 mg Heparin Sodium (Porcine) (Heparin) 5,000 units SC Q8H [facility] Last Admin: 08/17/16 06:45 Dose: Not Given Hydralazine HCl (Apresoline) 100 mg PO Q8 [facility] Last Admin: 08/17/16 05:50 Dose: 100 mg Hydromorphone HCl (Dilaudid) 2 mg PO Q4 PRN PRN Reason: Pain, severe (8-10) Last Admin: 08/17/16 08:24 Dose: 2 mg Insulin Human Regular (Novolin R) 0 unit SC ACHS [facility] PRN Reason: Protocol Last Admin: 08/17/16 07:34 Dose: Not Given Metoclopramide HCl (Reglan) 10 mg IVP Q6 [facility] Last Admin: 08/17/16 05:49 Dose: 10 mg Neomycin/Polymyxin/Gramicidin (Gramicidin/Neomycin/Polymyxin B) 0 ml OD QID [facility] Last Admin: 08/16/16 22:02 Dose: 1 drop Nitroglycerin (Nitro-Bid 2% Oint) 1 ea TOP Q6 PRN PRN Reason: elevated HR Last Admin: 08/16/16 23:58 Dose: 1 ea Pantoprazole Sodium (Protonix Inj) 40 mg IVP DAILY [facility] Last Admin: 08/16/16 09:44 Dose: 40 mg Timolol Maleate (Timoptic 0.25% Oph Soln) 1 drop OD BID [facility] Last Admin: 08/16/16 18:05 Dose: 1 applic - Labs Labs: 08/15/16 14:58 08/15/16 14:58 PT 11.2 SECONDS (9.7-12.2) 08/14/16 21:29 INR 1.0 08/14/16 21:29 APTT 37 SECONDS (21-34) H 08/14/16 21:29 - Respiratory Exam Respiratory Exam: NORMAL BREATHING PATTERN Additional comments: Lungs clear - Cardiovascular Exam Cardiovascular Exam: REGULAR RHYTHM - Extremities Exam Additional comments: No edema Assessment and Plan - Assessment and Plan (Free Text) Assessment: ESRD , Volume overload corrected HTN IDDM Abd pain Plan: Stable on dialysis Continue HD per schedule
[2016-08-17 13:14] VITALS: PULSE 76
--- NOTE | 2016-08-17 14:18 | CARD ---
APPROVED REPORT EXAM: Two-dimensional and M-mode echocardiogram with Doppler and color Doppler. Other Information Quality : GoodRhythm : NSR INDICATION Chest Pain RISK FACTORS Hypertension Hyperlipidemia Diabetes M-Mode DIMENSIONS RVDd1.94 (2.1-3.2cm)Left Atrium (MM)4.86 (2.5-4.0cm) IVSd1.77 (0.7-1.1cm)Aortic Root2.71 (2.2-3.7cm) LVDd4.20 (4.0-5.6cm)Aortic Cusp Exc.1.98 (1.5-2.0cm) PWd1.77 (0.7-1.1cm)FS (%) 42 % LVDs2.43 (2.0-3.8cm)LVEF (%)74 (>50%) Aortic Valve AoV Peak Bzynkmto644.2cm/Mell Peak GR.8mmHg Mitral Valve MV E Hqwcaimw34.8cm/sMV A Ydvtaxsf03.6cm/sE/A ratio1.1 TDI E/Lateral E'0.0E/Medial E'0.0 Tricuspid Valve TR Peak Tobebqdi203od/sTR Peak Gr.[id number] LEFT VENTRICLE The left ventricle is normal size. There is mild to moderate concentric left ventricular hypertrophy. The left ventricular function is normal. The left ventricular ejection fraction is within the normal range. No regional wall motion abnormalities noted. Transmitral Doppler flow pattern is Grade II-pseudonormal filling dynamics. LV filling pressures are elevated No left ventricle thrombus noted on this study. There is no ventricular septal defect visualized. There is no left ventricular aneurysm. There is no mass noted in the left ventricle. RIGHT VENTRICLE The right ventricle is normal size. There is normal right ventricular wall thickness. The right ventricular systolic function is normal. ATRIA The left atrium is moderately dilated. The right atrium size is normal. The interatrial septum is intact with no evidence for an atrial septal defect. AORTIC VALVE The aortic valve is normal in structure and function. No aortic regurgitation is present. There is no aortic valvular stenosis. There is no aortic valvular vegetation. MITRAL VALVE The mitral valve is normal in structure and function. There is no evidence of mitral valve prolapse. There is no mitral valve stenosis. There is no mitral valve regurgitation noted. TRICUSPID VALVE The tricuspid valve is normal in structure and function. There is mild tricuspid regurgitation. Right ventricular systolic pressure is estimated at less than 30 mmHg. There is no tricuspid valve prolapse or vegetation. There is no tricuspid valve stenosis. PULMONIC VALVE The pulmonary valve is normal in structure and function. There is no pulmonic valvular regurgitation. There is no pulmonic valvular stenosis. GREAT VESSELS The aortic root is normal in size. The ascending aorta is normal in size. The pulmonary artery is normal. The IVC is normal in size and collapses >50% with inspiration. PERICARDIAL EFFUSION The pericardium appears normal. There is no pleural effusion. <Conclusion> There is mild to moderate concentric left ventricular hypertrophy. The left ventricular function is normal. The left ventricular ejection fraction is within the normal range. No regional wall motion abnormalities noted. Transmitral Doppler flow pattern is Grade II-pseudonormal filling dynamics. LV filling pressures are elevated The left atrium is moderately dilated.
[2016-08-17 16:03] VITALS: BP 146/76; TEMP 98.9
--- NOTE | 2016-08-17 16:27 | CP.PCM.PN ---
Subjective - Date & Time of Evaluation Date of Evaluation: 08/17/16 Time of Evaluation: 11:00 - Subjective Subjective: Alert, awake, NAD. Objective - Vital Signs/Intake and Output Vital Signs (last 24 hours): Temp Pulse Resp BP Pulse Ox 98.9 F 76 18 146/76 98 08/17/16 16:03 08/17/16 16:03 08/17/16 16:03 08/17/16 16:03 08/17/16 16:03 Intake and Output: 08/17/16 08/17/16 06:59 18:59 Intake Total 560 275 Balance 560 275 - Medications Medications: Current Medications Calcium Acetate (Phoslo) 667 mg PO TIDCC [facility] Last Admin: 08/17/16 13:30 Dose: 667 mg Carvedilol (Coreg) 25 mg PO BID [facility] Last Admin: 08/17/16 10:00 Dose: Not Given Clonidine HCl (Catapres-Tts3 0.3 Mg/24 Hr) 2 patch TD Q7D@1000 [facility] Enalaprilat (Vasotec) 1.25 mg IVP Q8 [facility] Last Admin: 08/17/16 13:12 Dose: Not Given Heparin Sodium (Porcine) (Heparin) 5,000 units SC Q8H [facility] Last Admin: 08/17/16 06:45 Dose: Not Given Hydralazine HCl (Apresoline) 100 mg PO Q8 [facility] Last Admin: 08/17/16 14:16 Dose: 100 mg Hydromorphone HCl (Dilaudid) 2 mg PO Q4 PRN PRN Reason: Pain, severe (8-10) Last Admin: 08/17/16 08:24 Dose: 2 mg Insulin Human Regular (Novolin R) 0 unit SC ACHS [facility] PRN Reason: Protocol Last Admin: 08/17/16 11:30 Dose: Not Given Metoclopramide HCl (Reglan) 10 mg IVP Q6 [facility] Last Admin: 08/17/16 13:00 Dose: 10 mg Neomycin/Polymyxin/Gramicidin (Gramicidin/Neomycin/Polymyxin B) 0 ml OD QID [facility] Last Admin: 08/17/16 14:17 Dose: 1 drop Nitroglycerin (Nitro-Bid 2% Oint) 1 ea TOP Q6 PRN PRN Reason: elevated HR Last Admin: 08/16/16 23:58 Dose: 1 ea Pantoprazole Sodium (Protonix Inj) 40 mg IVP DAILY [facility] Last Admin: 08/17/16 10:00 Dose: Not Given Timolol Maleate (Timoptic 0.25% Ophth Soln) 1 drop OD BID [facility] Last Admin: 08/17/16 10:00 Dose: Not Given - Labs Labs: 08/15/16 14:58 08/15/16 14:58 PT 11.2 SECONDS (9.7-12.2) 08/14/16 21:29 INR 1.0 08/14/16 21:29 APTT 37 SECONDS (21-34) H 08/14/16 21:29 Assessment and Plan - Assessment and Plan (Free Text) Assessment: Patient is seen and examined in the HD room . Alert, pleasant, denies vomiting, NAD. d/w DR Gamez, discharge plan for today.
--- NOTE | 2016-08-18 18:35 | CP.PCM.DIS ---
Provider - Provider Date of Admission: 08/14/16 22:49 Attending physician: Sal Gamez MD Time Spent in preparation of Discharge (in minutes): 30 Diagnosis - Discharge Diagnosis (1) Abdominal pain Status: Acute (2) DM2 (diabetes mellitus, type 2) Status: Chronic (3) Hypertension Status: Chronic (4) ESRD on hemodialysis Status: Acute (5) Intractable vomiting with nausea Status: Acute Hospital Course - Lab Results Lab Results: Most Recent Lab Values WBC 9.4 K/uL (4.8-10.8) 08/15/16 14:58 RBC 3.63 Mil/uL (3.80-5.20) L 08/15/16 14:58 Hgb 11.1 g/dL (11.0-16.0) 08/15/16 14:58 Hct 33.6 % (34.0-47.0) L 08/15/16 14:58 MCV 92.4 fL (81.0-99.0) 08/15/16 14:58 MCH 30.6 pg (27.0-31.0) 08/15/16 14:58 MCHC 33.1 g/dL (33.0-37.0) 08/15/16 14:58 RDW 15.6 % (11.5-14.5) H 08/15/16 14:58 Plt Count 173 K/uL (130-400) 08/15/16 14:58 MPV 9.1 fL (7.2-11.7) 08/15/16 14:58 Neut % (Auto) 79.5 % (50.0-75.0) H 08/14/16 21:39 Lymph % (Auto) 6.7 % (20.0-40.0) L 08/14/16 21:39 [place] % (Auto) 9.0 % (0.0-10.0) 08/14/16 21:39 Eos % (Auto) 4.1 % (0.0-4.0) H 08/14/16 21:39 Baso % (Auto) 0.7 % (0.0-2.0) 08/14/16 21:39 Neut # 11.3 K/uL (1.8-7.0) H 08/14/16 21:39 Lymph # 0.9 K/uL (1.0-4.3) L 08/14/16 21:39 [place] # 1.3 K/uL (0.0-0.8) H 08/14/16 21:39 Eos # 0.6 K/uL (0.0-0.7) 08/14/16 21:39 Baso # 0.1 K/uL (0.0-0.2) 08/14/16 21:39 Neutrophils % (Manual) 81 % (50-75) H 08/14/16 21:39 Band Neutrophils % 1 % (0-2) 08/14/16 21:39 Lymphocytes % (Manual) 6 % (20-40) L 08/14/16 21:39 Monocytes % (Manual) 6 % (0-10) 08/14/16 21:39 Eosinophils % (Manual) 5 % (0-4) H 08/14/16 21:39 Basophils % (Manual) 1 % (0-2) 08/14/16 21:39 Platelet Estimate Normal (NORMAL) 08/14/16 21:39 Large Platelets Present 08/14/16 21:39 Giant Platelets Present 08/14/16 21:39 Hypochromasia (manual) Slight 08/14/16 21:39 Microcytosis (manual) Slight 08/14/16 21:39 PT 11.2 SECONDS (9.7-12.2) 08/14/16 21:29 INR 1.0 08/14/16 21:29 APTT 37 SECONDS (21-34) H 08/14/16 21:29 Sodium 137 mmol/L (132-148) 08/15/16 14:58 Potassium 4.4 mmol/L (3.6-5.2) 08/15/16 14:58 Chloride 92 mmol/L (98-107) L 08/15/16 14:58 Carbon Dioxide 30 mmol/L (22-30) 08/15/16 14:58 Anion Gap 19 (10-20) 08/15/16 14:58 BUN 26 mg/dL (7-17) H 08/15/16 14:58 Creatinine 4.6 MG/DL (0.7-1.2) H 08/15/16 14:58 Est GFR ( Amer) 13 08/15/16 14:58 Est GFR (Non-Af Amer) 11 08/15/16 14:58 POC Glucose (mg/dL) 105 mg/dL (65-110) 08/17/16 11:29 Random Glucose 91 mg/dL (65-105) 08/15/16 14:58 Calcium 9.1 mg/dl (8.6-10.4) 08/15/16 14:58 Phosphorus 2.3 mg/dL (2.5-4.5) L 08/15/16 14:58 Total Bilirubin 0.9 mg/dL (0.2-1.3) 08/14/16 21:47 AST 35 U/L (14-36) 08/14/16 21:47 ALT 32 U/L (9-52) 08/14/16 21:47 Alkaline Phosphatase 82 U/L (38-126) 08/14/16 21:47 Total Creatine Kinase 23 U/L (30-135) L 08/14/16 21:47 CK-MB (Mass) 0.61 ng/mL (0.0-3.38) 08/14/16 21:47 Troponin I 0.0380 ng/mL (0.00-0.120) 08/14/16 21:47 NT-Pro-B Natriuret Pep 11198 pg/mL (0-450) H 08/14/16 21:47 Total Protein 8.1 g/dL (6.3-8.3) 08/14/16 21:47 Albumin 4.4 g/dL (3.5-5.0) 08/14/16 21:47 Globulin 3.7 gm/dL (2.2-3.9) 08/14/16 21:47 Albumin/Globulin Ratio 1.2 (1.0-2.1) 08/14/16 21:47 Lipase 39 U/L (23-300) 08/14/16 21:47 - Hospital Course Hospital Course: pt is seen and examined, B.P stable, feeling better, on HD pt is for discharge to Rehab Discharge Exam - Head Exam Head Exam: ATRAUMATIC, NORMAL INSPECTION, NORMOCEPHALIC - Eye Exam Eye Exam: EOMI, Normal appearance, PERRL Pupil Exam: NORMAL ACCOMODATION, PERRL - Respiratory Exam Respiratory Exam: Decreased Breath Sounds - Cardiovascular Exam Cardiovascular Exam: REGULAR RHYTHM, +S1, +S2 - GI/Abdominal Exam GI & Abdominal Exam: Normal Bowel Sounds - Neurological Exam Neurological exam: Alert, CN II-XII Intact, Normal Gait, Oriented x3, Reflexes Normal - Psychiatric Exam Psychiatric exam: Normal Affect, Normal Mood Discharge Plan - Follow Up Plan Condition: STABLE Disposition: TRANSF TO SNF Instructions: Dialysis Diet (DC), Hyperkalemia (DC), End Stage Kidney Disease ( DC) Referrals: Sal Gamez MD [Staff Provider] -
[2016-08-19 17:39] VITALS: O2SAT 99
== END 2016-08-17 16:29 | DRG 391 ==
LOC: C.ER 19:59 → C.9E 22:49 → C.6T 23:14
PROVIDERS: ADMIT Internal Medicine; ATTEND Internal Medicine
PROC: 5A1D60Z (ICD-10-PCS; principal; 2016-08-15)
DX: R10.9 Unspecified abdominal pain (principal); N18.6 End stage renal disease; E11.22 Type 2 diabetes mellitus with diabetic chronic kidney disease; I12.0 Hypertensive chronic kidney disease with stage 5 chronic kidney disease or end stage renal disease; K31.84 Gastroparesis; E87.70 Fluid overload, unspecified; R11.2 Nausea with vomiting, unspecified; D64.9 Anemia, unspecified; E78.5 Hyperlipidemia, unspecified; E87.5 Hyperkalemia; E11.43 Type 2 diabetes mellitus with diabetic autonomic (poly)neuropathy; E11.42 Type 2 diabetes mellitus with diabetic polyneuropathy; Z99.2 Dependence on renal dialysis; Z79.4 Long term (current) use of insulin

== ENCOUNTER 2016-09-01 23:18 | Inpatient (IN) | payer MEDICARE, OTHER ==
[2016-09-01 23:19] VITALS: BMI 13.2
[2016-09-02 00:17] LABS: BASO % 0.2 % (0.0-2.0); EOS # 0.5 K/uL (0.0-0.7); EOS % 9.1 % (0.0-4.0); HEMATOCRIT 41.5 % (34.0-47.0); LYMPH % 17.7 % (20.0-40.0); MEAN CORPUSCULAR HEMOGLOBIN 30.7 pg (27.0-31.0); MEAN CORPUSCULAR HGB CONC 32.3 g/dL (33.0-37.0); MEAN PLATELET VOLUME 8.4 fL (7.2-11.7); MONO # 0.6 K/uL (0.0-0.8); MONO % 10.3 % (0.0-10.0); NRBC % 0.1 % (0.0-2.0); RED CELL DISTRIBUTION WIDTH 18.1 % (11.5-14.5); WHITE BLOOD COUNT 5.6 K/uL (4.8-10.8)
[2016-09-02 00:28] LABS: POTASSIUM 4.6 mmol/L (3.6-5.2)
[2016-09-02 00:31] LABS: CALCIUM 9.5 mg/dl (8.6-10.4); TOTAL PROTEIN 8.6 g/dL (6.3-8.3)
--- NOTE | 2016-09-02 00:38 | C.PDOC ---
History Of Present Illness Patient presents to the ER with a complaint of whole body pain, nausea, and abdominal pain. Patient has a history of intractable abdominal pain and reports going to dialysis today at normal scheduled time. Denies vomiting, fever, or diarrhea. Time Seen by Provider: 09/01/16 23:49 Chief Complaint (Nursing): High Blood Pressure History Per: Patient History/Exam Limitations: no limitations Onset/Duration Of Symptoms: Hrs Current Symptoms Are (Timing): Still Present Location Of Pain/Discomfort: Other (Abdominal pain, body pain) Radiation Of Pain To:: None Quality Of Discomfort: Unable To Describe Associated Symptoms: Nausea. denies: Fever, Vomiting, Diarrhea Exacerbating Factors: None Alleviating Factors: None Recent travel outside of the [place]: No Past Medical History Reviewed: Historical Data, Nursing Documentation, Vital Signs Vital Signs: Last Vital Signs Temp 98.4 F 09/01/16 23:25 Pulse 73 09/01/16 23:47 Resp 20 09/01/16 23:25 BP 209/91 H 09/01/16 23:25 Pulse Ox 97 09/02/16 00:51 - Medical History PMH: Anemia, Depression, Diabetes, Gastritis (diabetic gastroparesis), HTN, Hypercholesterolemia, Pneumonia, End Stage Renal Disease, Chronic Kidney Disease Surgical History: Cholecystectomy - [facility] Procedures BONE BIOPSY NEC (04/07/13) CATARAC PHACOEMULS/ASPIR (09/23/14) CONTRAST ARTERIOGRAM NEC (07/17/13) CONTRAST ARTERIOGRAM-LEG (04/07/13) DIALYSIS ARTERIOVENOSTOM (04/07/13) ESOPHAGOGASTRODUODENOSCOPY [EGD] W/CLOSED BIOPSY (09/19/13) EXCIS DEBRIDE OF WOUND, INFECT, OR BURN (07/17/13) EXCISION OF STOMACH, ENDO, DIAGN (07/09/16) EXCISION OF STOMACH, PYLORUS, ENDO, DIAGN (03/14/15) EXTRACTION OF LEFT LOWER LEG SKIN, EXTERNAL APPROACH (06/16/16) HEMODIALYSIS (01/01/15) INCIS W REM OF FORIEGN BODY OR DEV FROM SKIN & SUBCUT TISSUE (05/27/13) INDIVID PSYCHOTHERAP NEC (04/20/13) INJECT/INFUSE NEC (11/09/13) INSERT LENS AT CATAR EXT (09/23/14) INSPECTION OF UPPER INTESTINAL TRACT, ENDO (03/10/16) OCCUPATIONAL THERAPY (04/30/13) OTHER GROUP THERAPY (04/20/13) OTHER SKIN & SUBQ I D (07/17/13) PERFORMANCE OF URINARY FILTRATION, MULTIPLE (08/14/16) PERFORMANCE OF URINARY FILTRATION, SINGLE (03/29/16) PHYSICAL THERAPY NEC (04/30/13) TRANSFUSE NONAUT RED BLOOD CELLS IN PERIPH VEIN, PERC (06/10/15) ULTRASONOGRAPHY OF RIGHT AND LEFT HEART, TRANSESOPHAGEAL (06/19/15) Family History: States: Diabetes - Social History Hx Tobacco Use: No Hx Alcohol Use: No Hx Substance Use: No - Immunization History Hx Tetanus Toxoid Vaccination: Yes Hx Influenza Vaccination: Yes Hx Pneumococcal Vaccination: Yes Review Of Systems Constitutional: Negative for: Fever Gastrointestinal: Positive for: Nausea, Abdominal Pain. Negative for: Vomiting , Diarrhea Musculoskeletal: Positive for: Other (Body pain) Physical Exam - Physical Exam Appears: Well, Non-toxic, Other (Asleep) Skin: Warm, Dry Eye(s): bilateral: Other (Left pupil miosis. Right pupil cloudy, baseline.) Oral Mucosa: Moist Chest: Symmetrical, No Tenderness Cardiovascular: Rhythm Regular, No Friction Rub Respiratory: No Rales, No Rhonchi, No Wheezing Gastrointestinal/Abdominal: Soft, Tenderness (Vaguely), No Guarding, No Rebound Neurological/Psych: Oriented x3 ED Course And Treatment - Laboratory Results Result Diagrams: 09/02/16 00:14 09/02/16 00:14 O2 Sat by Pulse Oximetry: 97 Progress Note: EKG, blood work, CXR, and abdominal x-ray ordered. Trandate PO, zofran IVP, and catapres patch administered. Discussed with Dr. Gamez for admission under his service. Reevaluation Time: 00:51 Reassessment Condition: Improved - Physician Consult Information Outcome Of Conversation: 0030, 0050: d/w Dr. Gamez- ok to Tele obs. Medical Decision Making Medical Decision Makin: whole body pain, significant Percocet regimen uncontrolled HTN despite HD earlier today- Clonidine Patch applied ABd pain/vomiting, ? gastroparesis vs constipation- pain meds pending abd films and pt asleep @ eval, consider narcotic withdrawal Disposition - Disposition Disposition Time: 01:00 Condition: GOOD - Clinical Impression Clinical Impression: Hypertension associated with stage 4 chronic kidney disease due to type 2 diabetes mellitus, Abdominal pain with vomiting - Scribe Statement The provider has reviewed the documentation as recorded by the Scribisrael Tomlinson All medical record entries made by the Crissyibisrael were at my direction and personally dictated by me. I have reviewed the chart and agree that the record accurately reflects my personal performance of the history, physical exam, medical decision making, and the department course for this patient. I have also personally directed, reviewed, and agree with the discharge instructions and disposition. Physician Patient Turnover Patient Signed Over To: Mara Segura Handoff Comments: f/u labs and cxr/abd films. check BP after Clonidine. Admit to [facility]
[2016-09-02 00:43] LABS: TROPONIN I 0.032 ng/mL (0.00-0.120)
[2016-09-02] MEDS ORDERED: Nitroglycerin 2% Ointment Foilpak UD TOP ONE (04:52)
[2016-09-02] MEDS ORDERED: HYDROmorphone 1 mg/ml ISec ONE ×2 (04:53→10:29)
[2016-09-02] MEDS ORDERED: Enalaprilat 2.5 MG/2 ML ONE (04:53)
[2016-09-02] MEDS ORDERED: Nitroglycerin 2% Ointment Foilpak UD TOP PRN (05:16)
[2016-09-02] MEDS ORDERED: Enalaprilat 2.5 MG/2 ML IV ONE (05:26)
[2016-09-02] MEDS ORDERED: HEPARIN SODIUM PORCINE 5000 UNIT SQ SCH (05:30)
[2016-09-02] MEDS: Nitroglycerin 2% Ointment Foilpak UD TOP SCH ×3 (05:45→18:41)
[2016-09-02] MEDS ORDERED: ENALAPRIL 2.5 MG PO SCH (06:00)
[2016-09-02] MEDS ORDERED: DiphenhydrAMINE 12.5 mg/5 ml LIQ UD (5 ml) GT PRN (07:45)
--- NOTE | 2016-09-02 08:29 | RAD ---
HISTORY: SOB COMPARISON: Chest x-ray performed 08/14/16 TECHNIQUE: Chest, one view. FINDINGS: Interval removal of the right-sided PICC. LUNGS: No focal consolidation. Please note that chest x-ray has limited sensitivity for the detection of pulmonary masses. PLEURA: No significant pleural effusion identified. No definite pneumothorax . CARDIOVASCULAR: The cardiomediastinal silhouette appears within normal limits of size. OSSEOUS STRUCTURES: No acute osseous abnormality identified. VISUALIZED UPPER ABDOMEN: Unremarkable. OTHER FINDINGS: None. IMPRESSION: No focal consolidation, significant pleural effusion, or definite pneumothorax identified.
--- NOTE | 2016-09-02 08:33 | RAD ---
HISTORY: chronic abd pain COMPARISON: Obstructive series performed 07/08/16 FINDINGS: The lung bases appear grossly clear. Right upper quadrant surgical clips. Moderate to severe constipation. Evidence of small bowel obstruction. No definite free air. Scattered degenerative changes of the spine. Impression: Moderate to severe constipation.
[2016-09-02] MEDS: HYDROmorphone 1 mg/ml ISec IVP PRN ×4 (10:35→22:45)
[2016-09-02] MEDS: Timolol 0.25% Ophth SOLN OD SCH ×2 (11:35→18:41)
[2016-09-02] MEDS ORDERED: NIFEdipine 90 mg ER Tab PO ONE (19:47)
[2016-09-03] MEDS: Nitroglycerin 2% Ointment Foilpak UD TOP SCH ×4 (00:22→18:00)
[2016-09-03] MEDS: HYDROmorphone 1 mg/ml ISec IVP PRN ×5 (03:15→22:32)
[2016-09-03] MEDS: NIFEdipine 90 mg ER Tab PO SCH (09:45)
[2016-09-03] MEDS: Timolol 0.25% Ophth SOLN OD SCH ×2 (12:24→22:34)
--- NOTE | 2016-09-03 14:59 | CP.PCM.CON ---
History of Present Illness - History of Present Illness History of Present Illness: 40 y rold with htn, dm, esrd on hd mwf is admitted with severe abdominal pain, nausea vomiting. no fever or chills. did not miss any hd sessions. Review of Systems - Review of Systems All systems: reviewed and no additional remarkable complaints except Past Patient History - Infectious Disease Hx of Infectious Diseases: None - Past Medical History & Family History Past Medical History?: Yes - Past Social History Smoking Status: Never Smoked - CARDIAC Hx Cardiac Disorders: Yes Hx Hypercholesterolemia: Yes Hx Hypertension: Yes - PULMONARY Hx Pneumonia: Yes - NEUROLOGICAL Hx Neurological Disorder: No - HEENT Hx HEENT Problems: Yes Hx Cataracts: Yes (09/23/14 left) - RENAL Hx Chronic Kidney Disease: Yes Hx Dialysis: Yes Type of Dialysis Access: Right AV shunt Date of Last Dialysis Treatment: 09/01/16 - ENDOCRINE/METABOLIC Hx Endocrine Disorders: Yes Hx Diabetes Mellitus Type 2: Yes - HEMATOLOGICAL/ONCOLOGICAL Hx Anemia: Yes - INTEGUMENTARY Hx Dermatological Problems: Yes Other/Comment: right great toe amputation - MUSCULOSKELETAL/RHEUMATOLOGICAL Hx Falls: No - GASTROINTESTINAL Hx Gastritis: Yes (diabetic gastroparesis) - GENITOURINARY/GYNECOLOGICAL Hx Genitourinary Disorders: Yes Other/Comment: renal failure - PSYCHIATRIC Hx Depression: Yes Hx Substance Use: No - SURGICAL HISTORY Hx Cholecystectomy: Yes - ANESTHESIA Hx Anesthesia: Yes Hx Anesthesia Reactions: No Hx Malignant Hyperthermia: No Has any member of the family had a problem w/ anesthesia?: No Meds Allergies/Adverse Reactions: Allergies Allergy/AdvReac Type Severity Reaction Status Date / Time ketorolac tromethamine Allergy Verified 09/01/16 23:34 [From Toradol] morphine Allergy Verified 09/01/16 23:34 tramadol Allergy Verified 09/01/16 23:34 - Medications Medications: Current Medications Calcium Acetate (Phoslo) 667 mg PO TID [facility] Last Admin: 09/03/16 14:23 Dose: 667 mg Carvedilol (Coreg) 12.5 mg PO BID [facility] Last Admin: 09/03/16 09:46 Dose: 12.5 mg Clonidine HCl (Catapres-Tts3 0.3 Mg/24 Hr) 2 patch TD Q7D@1000 [facility] Last Admin: 09/02/16 10:35 Dose: 2 patch Diphenhydramine HCl (Benadryl) 25 mg GT Q4 PRN PRN Reason: Itching / Pruritus Enalapril Maleate (Vasotec) 2.5 mg PO Q6 [facility] Last Admin: 09/03/16 12:25 Dose: 2.5 mg Fentanyl (Duragesic) 1 patch TD Q72H [facility] Last Admin: 09/02/16 10:35 Dose: 1 patch Heparin Sodium (Porcine) (Heparin) 5,000 units SC Q8H [facility] Last Admin: 09/03/16 12:23 Dose: 5,000 units Hydromorphone HCl (Dilaudid) 1 mg IVP Q4H PRN PRN Reason: Pain, moderate (4-7) Last Admin: 09/03/16 13:01 Dose: 1 mg Dextrose (Dextrose 10% In Water) 1,000 mls @ 40 mls/hr IV .Q24H [facility] Last Admin: 09/03/16 13:04 Dose: 40 mls/hr Metoclopramide HCl (Reglan) 10 mg IVP Q6 PRN PRN Reason: Nausea/Vomiting Last Admin: 09/03/16 01:29 Dose: 10 mg Nifedipine (Procardia Xl) 90 mg PO DAILY [facility] Last Admin: 09/03/16 09:45 Dose: 90 mg Nitroglycerin (Nitro-Bid 2% Oint) 1 ea TOP Q6 [facility] Last Admin: 09/03/16 12:24 Dose: 1 ea Timolol Maleate (Timoptic 0.25% Ophth Soln) 1 drop OD BID [facility] Last Admin: 09/03/16 12:24 Dose: 1 drop Physical Exam - Constitutional Appears: Well, Non-toxic, No Acute Distress - Head Exam Head Exam: NORMAL INSPECTION - Eye Exam Eye Exam: Normal appearance - ENT Exam ENT Exam: Mucous Membranes Moist - Respiratory Exam Respiratory Exam: NORMAL BREATHING PATTERN - Cardiovascular Exam Cardiovascular Exam: +S1, +S2 - GI/Abdominal Exam GI & Abdominal Exam: Soft - Extremities Exam Extremities exam: Positive for: normal inspection - Neurological Exam Neurological exam: Alert, Oriented x3 Results - Vital Signs Recent Vital Signs: Last Vital Signs Temp 98.1 F 09/03/16 09:13 Pulse 74 09/03/16 09:13 Resp 20 09/03/16 09:13 BP 170/77 H 09/03/16 12:25 Pulse Ox 97 09/03/16 09:13 - Labs Result Diagrams: 09/02/16 00:14 09/02/16 00:14 Labs: Laboratory Results - last 24 hr 09/02/16 09/02/16 09/03/16 16:35 21:37 06:22 POC Glucose (mg/dL) 133 H 113 H 119 H 09/03/16 12:25 POC Glucose (mg/dL) 118 H Assessment & Plan - Assessment and Plan (Free Text) Plan: esrd/htn/dm/anemia hd tomorrow per schedule volume status stable lytes reviewed anemia: hb >10 no epo bp ok
--- NOTE | 2016-09-03 23:26 | CP.PCM.HP ---
History of Present Illness - History of Present Illness History of Present Illness: Pt is a 40 year old female well known to me as a resident of [facility] with PMH significant for HTN,poorly controlled ,recurrent abdominal pain due to diabetic gastroparesis, multiple hospitalizations in past she came in with whole body pain, significant Percocet regimen uncontrolled HTN despite HD earlier today- Clonidine Patch applied ABd pain/vomiting, ? gastroparesis vs constipation- pain meds pending abd films and pt asleep @ eval, consider narcotic withdrawal Present on Admission - Present on Admission Any Indicators Present on Admission: No Review of Systems - Review of Systems Systems not reviewed;Unavailable: Acuity of Condition - Constitutional Constitutional: Lethargy, Malaise - EENT Eyes: absent: As Per HPI, Blind Spots, Blurred Vision, Change in Vision, Decreased Night Vision, Diplopia, Discharge, Dry Eye, Exophthalmos, Floaters, Irritation, Itchy Eyes, Loss of Peripheral Vision, Pain, Photophobia, Requires Corrective Lenses, Sees Flashes, Spots in Vision, Tunnel Vision, Other Visual Disturbances, Loss of Vision, Other Nose/Mouth/Throat: absent: As Per HPI, Epistaxis, Nasal Congestion, Nasal Discharge, Nasal Obstruction, Nasal Trauma, Nose Pain, Post Nasal Drip, Sinus Pain, Sinus Pressure, Bleeding Gums, Change in Voice, Dental Pain, Dry Mouth, Dysphagia, Halitosis, Hoarsness, Lip Swelling, Mouth Lesions, Mouth Pain, Odynophagia, Sore Throat, Throat Swelling, Tongue Swelling, Facial Pain, Neck Pain, Neck Mass, Other - Cardiovascular Cardiovascular: absent: As Per HPI, Acrocyanosis, Chest Pain, Chest Pain at Rest , Chest Pain with Activity, Claudication, Diaphoresis, Dyspnea, Dyspnea on Exertion, Edema, Irregular Heart Rhythm, Pain Radiating to Arm/Neck/Jaw, Leg Edema, Leg Ulcers, Lightheadedness, Orthopnea, Palpitations, Paroxysmal Nocturnal Dyspnea, Pedal Edema, Radiating Pain, Rapid Heart Rate, Slow Heart Rate, Syncope, Other - Gastrointestinal Gastrointestinal: Abdominal Pain, Bloating - Genitourinary Genitourinary: absent: As Per HPI, Change in Urinary Stream, Difficulty Urinating, Dysuria, Flank Pain, Hematuria, Pyuria, Nocturia, Urinary Incontinence, Urinary Frequency, Urinary Hesitance, Urinary Urgency, Voiding Freq/Small Amts, Freq UTI, Hx Renal/Bladder Calculi, Hx /Renal Surgery, Bladder Distension, Other Past Patient History - Infectious Disease Hx of Infectious Diseases: None - Past Medical History & Family History Past Medical History?: Yes - Past Social History Smoking Status: Never Smoked - CARDIAC Hx Cardiac Disorders: Yes Hx Hypercholesterolemia: Yes Hx Hypertension: Yes - PULMONARY Hx Pneumonia: Yes - NEUROLOGICAL Hx Neurological Disorder: No - HEENT Hx HEENT Problems: Yes Hx Cataracts: Yes (09/23/14 left) - RENAL Hx Chronic Kidney Disease: Yes Hx Dialysis: Yes Type of Dialysis Access: Right AV shunt Date of Last Dialysis Treatment: 09/01/16 - ENDOCRINE/METABOLIC Hx Endocrine Disorders: Yes Hx Diabetes Mellitus Type 2: Yes - HEMATOLOGICAL/ONCOLOGICAL Hx Anemia: Yes - INTEGUMENTARY Hx Dermatological Problems: Yes Other/Comment: right great toe amputation - MUSCULOSKELETAL/RHEUMATOLOGICAL Hx Falls: No - GASTROINTESTINAL Hx Gastritis: Yes (diabetic gastroparesis) - GENITOURINARY/GYNECOLOGICAL Hx Genitourinary Disorders: Yes Other/Comment: renal failure - PSYCHIATRIC Hx Depression: Yes Hx Substance Use: No - SURGICAL HISTORY Hx Cholecystectomy: Yes - ANESTHESIA Hx Anesthesia: Yes Hx Anesthesia Reactions: No Hx Malignant Hyperthermia: No Has any member of the family had a problem w/ anesthesia?: No Meds Allergies/Adverse Reactions: Allergies Allergy/AdvReac Type Severity Reaction Status Date / Time ketorolac tromethamine Allergy Verified 10/02/16 06:15 [From Toradol] morphine Allergy Verified 10/02/16 06:15 tramadol Allergy Verified 10/02/16 06:15 Physical Exam - Constitutional Appears: No Acute Distress - Eye Exam Eye Exam: EOMI, Normal appearance, PERRL Pupil Exam: NORMAL ACCOMODATION, PERRL - Respiratory Exam Respiratory Exam: Clear to Auscultation Bilateral, NORMAL BREATHING PATTERN - Cardiovascular Exam Cardiovascular Exam: REGULAR RHYTHM - GI/Abdominal Exam GI & Abdominal Exam: Diminished Bowel Sounds, Tenderness Additional comments: epigastric tenderness - Rectal Exam Rectal Exam: Deferred Results - Vital Signs Recent Vital Signs: Last Vital Signs Temp 98.1 F 09/03/16 16:00 Pulse 74 09/03/16 15:40 Resp 18 09/03/16 15:40 BP 155/77 H 09/03/16 18:00 Pulse Ox 94 L 09/03/16 15:40 - Labs Result Diagrams: 09/02/16 00:14 09/02/16 00:14 Labs: Laboratory Results - last 24 hr 09/03/16 09/03/16 09/03/16 06:22 12:25 16:37 POC Glucose (mg/dL) 119 H 118 H 124 H 09/03/16 21:06 POC Glucose (mg/dL) 116 H Assessment & Plan (1) Diabetic gastroparesis Status: Chronic (2) ESRD on hemodialysis Status: Acute (3) Diabetes Status: Chronic (4) Hypertension Status: Chronic
[2016-09-04] MEDS: HYDROmorphone 1 mg/ml ISec IVP PRN ×4 (02:43→18:23)
[2016-09-04] MEDS: Nitroglycerin 2% Ointment Foilpak UD TOP SCH ×3 (05:18→12:55)
[2016-09-04] MEDS: Timolol 0.25% Ophth SOLN OD SCH (09:21)
[2016-09-04] MEDS: NIFEdipine 90 mg ER Tab PO SCH (09:21)
--- NOTE | 2016-09-04 10:35 | CP.PCM.PN ---
Subjective - Date & Time of Evaluation Date of Evaluation: 09/04/16 Time of Evaluation: 10:20 - Subjective Subjective: Feels better today.No sob Objective - Vital Signs/Intake and Output Vital Signs (last 24 hours): Temp Pulse Resp BP Pulse Ox 99.0 F 69 20 190/89 H 100 09/04/16 07:25 09/04/16 08:00 09/04/16 07:25 09/04/16 09:21 09/04/16 07:25 Intake and Output: 09/04/16 09/04/16 06:59 18:59 Intake Total 570 Balance 570 - Medications Medications: Current Medications Calcium Acetate (Phoslo) 667 mg PO TID [facility] Last Admin: 09/04/16 09:21 Dose: 667 mg Carvedilol (Coreg) 12.5 mg PO BID [facility] Last Admin: 09/04/16 09:21 Dose: 12.5 mg Clonidine HCl (Catapres-Tts3 0.3 Mg/24 Hr) 2 patch TD Q7D@1000 [facility] Last Admin: 09/02/16 10:35 Dose: 2 patch Diphenhydramine HCl (Benadryl) 25 mg GT Q4 PRN PRN Reason: Itching / Pruritus Enalapril Maleate (Vasotec) 2.5 mg PO Q6 [facility] Last Admin: 09/04/16 05:17 Dose: 2.5 mg Fentanyl (Duragesic) 1 patch TD Q72H [facility] Last Admin: 09/02/16 10:35 Dose: 1 patch Heparin Sodium (Porcine) (Heparin) 5,000 units SC Q8H [facility] Last Admin: 09/04/16 02:43 Dose: 5,000 units Hydralazine HCl (Apresoline) 100 mg PO Q8 [facility] Hydromorphone HCl (Dilaudid) 1 mg IVP Q4H PRN PRN Reason: Pain, moderate (4-7) Last Admin: 09/04/16 08:22 Dose: 1 mg Dextrose (Dextrose 10% In Water) 1,000 mls @ 40 mls/hr IV .Q24H [facility] Last Admin: 09/04/16 06:20 Dose: Not Given Metoclopramide HCl (Reglan) 10 mg IVP Q6 PRN PRN Reason: Nausea/Vomiting Last Admin: 04/30/17 01:29 Dose: 10 mg Nifedipine (Procardia Xl) 90 mg PO DAILY [facility] Last Admin: 09/04/16 09:21 Dose: 90 mg Nitroglycerin (Nitro-Bid 2% Oint) 1 ea TOP Q6 [facility] Last Admin: 09/04/16 05:18 Dose: 1 ea Timolol Maleate (Timoptic 0.25% Ophth Soln) 1 drop OD BID [facility] Last Admin: 09/04/16 09:21 Dose: 1 drop - Constitutional Appears: No Acute Distress - Eye Exam Additional comments: periorbital edema noted - Respiratory Exam Respiratory Exam: NORMAL BREATHING PATTERN Additional comments: Lungs clear - Cardiovascular Exam Cardiovascular Exam: REGULAR RHYTHM - GI/Abdominal Exam GI & Abdominal Exam: Soft - Extremities Exam Additional comments: No edema Assessment and Plan - Assessment and Plan (Free Text) Assessment: ESRD on HD HTN IDDM Abdominal pain Plan: Scheduled for dialyssis today UF goal 3Kg Labs ordered
--- NOTE | 2016-09-04 15:34 | CP.PCM.PN ---
Subjective - Date & Time of Evaluation Date of Evaluation: 09/04/16 Time of Evaluation: 13:25 - Subjective Subjective: Pt seen today am an d during HD , states feels better, tolerating reg. diet without N/V . denies any chest pain, headache, dizziness bp stable - Objective - Vital Signs/Intake and Output Vital Signs (last 24 hours): Temp Pulse Resp BP Pulse Ox 97 F L 72 16 112/71 98 09/04/16 13:20 09/04/16 13:20 09/04/16 13:20 09/04/16 14:45 09/04/16 13:20 Intake and Output: 09/04/16 09/04/16 06:59 18:59 Intake Total 570 Balance 570 - Medications Medications: Current Medications Calcium Acetate (Phoslo) 667 mg PO TID [facility] Last Admin: 09/04/16 14:04 Dose: Not Given Carvedilol (Coreg) 12.5 mg PO BID [facility] Last Admin: 09/04/16 09:21 Dose: 12.5 mg Clonidine HCl (Catapres-Tts3 0.3 Mg/24 Hr) 2 patch TD Q7D@1000 [facility] Last Admin: 09/02/16 10:35 Dose: 2 patch Diphenhydramine HCl (Benadryl) 25 mg GT Q4 PRN PRN Reason: Itching / Pruritus Enalapril Maleate (Vasotec) 2.5 mg PO Q6 [facility] Last Admin: 09/04/16 12:56 Dose: 2.5 mg Fentanyl (Duragesic) 1 patch TD Q72H [facility] Last Admin: 09/02/16 10:35 Dose: 1 patch Heparin Sodium (Porcine) (Heparin) 5,000 units SC Q8H [facility] Last Admin: 09/04/16 11:54 Dose: 5,000 units Hydralazine HCl (Apresoline) 100 mg PO Q8 [facility] Last Admin: 09/04/16 14:03 Dose: Not Given Hydromorphone HCl (Dilaudid) 1 mg IVP Q4H PRN PRN Reason: Pain, moderate (4-7) Last Admin: 09/04/16 12:14 Dose: 1 mg Dextrose (Dextrose 10% In Water) 1,000 mls @ 40 mls/hr IV .Q24H [facility] Last Admin: 09/04/16 06:20 Dose: Not Given Metoclopramide HCl (Reglan) 10 mg IVP Q6 PRN PRN Reason: Nausea/Vomiting Last Admin: 09/03/16 01:29 Dose: 10 mg Nifedipine (Procardia Xl) 90 mg PO DAILY [facility] Last Admin: 09/04/16 09:21 Dose: 90 mg Nitroglycerin (Nitro-Bid 2% Oint) 1 ea TOP Q6 [facility] Last Admin: 09/04/16 12:55 Dose: 1 ea Timolol Maleate (Timoptic 0.25% Ophth Soln) 1 drop OD BID [facility] Last Admin: 09/04/16 09:21 Dose: 1 drop Assessment and Plan - Assessment and Plan (Free Text) Assessment: A/P 40 yr old female admitted for abdominal pain, intractable N/V / and uncontrolled HTN abdominal pain improved and nasua contolled with medication an d patient tolerated reg diet without issues bp - stable HD today D/w Dr. Gamez, stable for discharge to [facility] today and Dr. Gamez will follow the patient at [facility] Discharge instruction discussed with patient who understands and agrees with plan
[2016-09-04 17:14] VITALS: RESP 18; TEMP 98.3; O2SAT 95
[2016-09-04 17:45] VITALS: BP 121/68; PULSE 75
--- NOTE | 2016-09-04 22:30 | CP.PCM.DIS ---
Provider - Provider Date of Admission: 09/02/16 06:02 Attending physician: Sal Gamez MD Time Spent in preparation of Discharge (in minutes): 30 Diagnosis - Discharge Diagnosis (1) Diabetic gastroparesis Status: Chronic (2) ESRD on hemodialysis Status: Acute (3) Diabetes Status: Chronic (4) Hypertension Status: Chronic Hospital Course - Lab Results Lab Results: Most Recent Lab Values WBC 5.6 K/uL (4.8-10.8) 09/02/16 00:14 RBC 4.37 Mil/uL (3.80-5.20) 09/02/16 00:14 Hgb 13.4 g/dL (11.0-16.0) D 09/02/16 00:14 Hct 41.5 % (34.0-47.0) 09/02/16 00:14 MCV 95.0 fL (81.0-99.0) D 09/02/16 00:14 MCH 30.7 pg (27.0-31.0) 09/02/16 00:14 MCHC 32.3 g/dL (33.0-37.0) L 09/02/16 00:14 RDW 18.1 % (11.5-14.5) H 09/02/16 00:14 Plt Count 141 K/uL (130-400) 09/02/16 00:14 MPV 8.4 fL (7.2-11.7) 09/02/16 00:14 Neut % (Auto) 62.7 % (50.0-75.0) 09/02/16 00:14 Lymph % (Auto) 17.7 % (20.0-40.0) L 09/02/16 00:14 [place] % (Auto) 10.3 % (0.0-10.0) H 09/02/16 00:14 Eos % (Auto) 9.1 % (0.0-4.0) H 09/02/16 00:14 Baso % (Auto) 0.2 % (0.0-2.0) 09/02/16 00:14 Neut # 3.5 K/uL (1.8-7.0) 09/02/16 00:14 Lymph # 1.0 K/uL (1.0-4.3) 09/02/16 00:14 [place] # 0.6 K/uL (0.0-0.8) 09/02/16 00:14 Eos # 0.5 K/uL (0.0-0.7) 09/02/16 00:14 Baso # 0.0 K/uL (0.0-0.2) 09/02/16 00:14 Sodium 138 mmol/L (132-148) 09/02/16 00:14 Potassium 4.6 mmol/L (3.6-5.2) 09/02/16 00:14 Chloride 92 mmol/L (98-107) L 09/02/16 00:14 Carbon Dioxide 29 mmol/L (22-30) 09/02/16 00:14 Anion Gap 22 (10-20) H 09/02/16 00:14 BUN 12 mg/dL (7-17) 09/02/16 00:14 Creatinine 3.3 MG/DL (0.7-1.2) H 09/02/16 00:14 Est GFR ( Amer) 19 09/02/16 00:14 Est GFR (Non-Af Amer) 16 09/02/16 00:14 POC Glucose (mg/dL) 147 mg/dL (65-110) H 09/04/16 17:11 Random Glucose 106 mg/dL (65-105) H 09/02/16 00:14 Calcium 9.5 mg/dl (8.6-10.4) 09/02/16 00:14 Total Bilirubin 1.0 mg/dL (0.2-1.3) 09/02/16 00:14 AST 46 U/L (14-36) H D 09/02/16 00:14 ALT 8 U/L (9-52) L D 09/02/16 00:14 Alkaline Phosphatase 107 U/L (38-126) 09/02/16 00:14 Troponin I 0.0320 ng/mL (0.00-0.120) 09/02/16 00:14 NT-Pro-B Natriuret Pep 74805 pg/mL (0-450) H 09/02/16 00:14 Total Protein 8.6 g/dL (6.3-8.3) H 09/02/16 00:14 Albumin 4.4 g/dL (3.5-5.0) 09/02/16 00:14 Globulin 4.2 gm/dL (2.2-3.9) H 09/02/16 00:14 Albumin/Globulin Ratio 1.0 (1.0-2.1) 09/02/16 00:14 Beta HCG, Quant < 2.39 mIU/ML 09/02/16 00:15 - Hospital Course Hospital Course: Pt is for Discharge s/p HD , states feels better, tolerating reg. diet without N /V . denies any chest pain, headache, dizziness bp stable - Discharge Exam - Head Exam Head Exam: NORMAL INSPECTION - Eye Exam Eye Exam: EOMI, Normal appearance, PERRL Pupil Exam: NORMAL ACCOMODATION, PERRL - Respiratory Exam Respiratory Exam: Clear to PA & Lateral, NORMAL BREATHING PATTERN - Cardiovascular Exam Cardiovascular Exam: REGULAR RHYTHM, +S1, +S2 - GI/Abdominal Exam GI & Abdominal Exam: Normal Bowel Sounds Discharge Plan - Follow Up Plan Condition: GOOD Disposition: REHAB FACILITY/REHAB UNIT Instructions: Dialysis Diet (DC), Diabetic Foot Care (DC), Basic Carbohydrate Counting (DC), Meal Planning with the Plate Method (DC), Meal Planning with Diabetes Exchanges (DC), End Stage Kidney Disease (DC) Referrals: Sal Gamez MD [Staff Provider] -
== END 2016-09-04 17:15 | DRG 73 ==
LOC: C.ER 23:18 → C.9E 09-02 00:49 → OBSVTOIN 09-02 06:02 → C.6T 09-02 06:50 → C.9E 09-02 07:52 → C.6T 09-02 12:05 → C.5T 09-04 17:08
PROVIDERS: ADMIT Internal Medicine; ATTEND Internal Medicine
PROC: 5A1D00Z (ICD-10-PCS; principal; 2016-09-04)
DX: E11.43 Type 2 diabetes mellitus with diabetic autonomic (poly)neuropathy (principal); N18.6 End stage renal disease; E11.22 Type 2 diabetes mellitus with diabetic chronic kidney disease; I12.0 Hypertensive chronic kidney disease with stage 5 chronic kidney disease or end stage renal disease; F19.939 Other psychoactive substance use, unspecified with withdrawal, unspecified; K31.84 Gastroparesis; Z99.2 Dependence on renal dialysis; D64.9 Anemia, unspecified; F32.9 Major depressive disorder, single episode, unspecified; E78.00 Pure hypercholesterolemia, unspecified; Z90.49 Acquired absence of other specified parts of digestive tract; K59.00 Constipation, unspecified

== ENCOUNTER 2016-09-13 14:55 | Inpatient (IN) | payer MEDICARE, OTHER ==
[2016-09-13 15:21] VITALS: BMI 27.4
--- NOTE | 2016-09-13 15:34 | C.PDOC ---
History Of Present Illness 40-year-old female, presents to the emergency department with complaints of generalized, severe abdominal pain that is associated with nausea and bilious vomiting, and non-bloody/watery diarrhea. All other Hx is limited due to clinical condition. Patient has a Hx of gastroparesis, and this presentation is similar to prior episodes. She is a renal failure patient and has not had dialysis. Time Seen by Provider: 09/13/16 15:30 Chief Complaint (Nursing): Abdominal Pain History Per: Patient History/Exam Limitations: clinical condition Onset/Duration Of Symptoms: Hrs Current Symptoms Are (Timing): Still Present Severity: Severe Location Of Pain/Discomfort: Diffuse Past Medical History Reviewed: Historical Data, Nursing Documentation, Vital Signs Vital Signs: Last Vital Signs Temp 98.2 F 09/13/16 15:23 Pulse 96 H 09/13/16 15:23 Resp 18 09/13/16 15:23 BP 232/97 H 09/13/16 15:23 Pulse Ox 99 09/13/16 17:04 - Medical History PMH: Anemia, Depression, Diabetes, Gastritis (diabetic gastroparesis), HTN, Hypercholesterolemia, Pneumonia, End Stage Renal Disease, Chronic Kidney Disease Surgical History: Cholecystectomy - [facility] Procedures BONE BIOPSY NEC (04/07/13) CATARAC PHACOEMULS/ASPIR (09/23/14) CONTRAST ARTERIOGRAM NEC (07/17/13) CONTRAST ARTERIOGRAM-LEG (04/07/13) DIALYSIS ARTERIOVENOSTOM (04/07/13) ESOPHAGOGASTRODUODENOSCOPY [EGD] W/CLOSED BIOPSY (09/19/13) EXCIS DEBRIDE OF WOUND, INFECT, OR BURN (07/17/13) EXCISION OF STOMACH, ENDO, DIAGN (07/09/16) EXCISION OF STOMACH, PYLORUS, ENDO, DIAGN (03/14/15) EXTRACTION OF LEFT LOWER LEG SKIN, EXTERNAL APPROACH (06/16/16) HEMODIALYSIS (01/01/15) INCIS W REM OF FORIEGN BODY OR DEV FROM SKIN & SUBCUT TISSUE (05/27/13) INDIVID PSYCHOTHERAP NEC (04/20/13) INJECT/INFUSE NEC (11/09/13) INSERT LENS AT CATAR EXT (09/23/14) INSPECTION OF UPPER INTESTINAL TRACT, ENDO (03/10/16) OCCUPATIONAL THERAPY (04/30/13) OTHER GROUP THERAPY (04/20/13) OTHER SKIN & SUBQ I D (07/17/13) PERFORMANCE OF URINARY FILTRATION, MULTIPLE (08/14/16) PERFORMANCE OF URINARY FILTRATION, SINGLE (09/02/16) PHYSICAL THERAPY NEC (04/30/13) TRANSFUSE NONAUT RED BLOOD CELLS IN PERIPH VEIN, PERC (06/10/15) ULTRASONOGRAPHY OF RIGHT AND LEFT HEART, TRANSESOPHAGEAL (06/19/15) Family History: States: Unknown Family Hx, Diabetes - Social History Hx Tobacco Use: No Hx Alcohol Use: No Hx Substance Use: No - Immunization History Hx Tetanus Toxoid Vaccination: Yes Hx Influenza Vaccination: Yes Hx Pneumococcal Vaccination: Yes Review Of Systems Except As Marked, All Systems Reviewed And Found Negative. Constitutional: Negative for: Fever, Chills Cardiovascular: Negative for: Chest Pain, Palpitations Respiratory: Negative for: Shortness of Breath Gastrointestinal: Positive for: Nausea, Vomiting, Abdominal Pain, Diarrhea Musculoskeletal: Negative for: Back Pain Skin: Negative for: Rash Neurological: Negative for: Weakness, Numbness, Headache, Dizziness Physical Exam - Physical Exam Appears: Non-toxic (severe distres, crying) Skin: Normal Color, Warm, Dry Head: Atraumatic, Normacephalic Eye(s): bilateral: Normal Inspection, PERRL, EOMI Nose: Normal Oral Mucosa: Moist Neck: Normal ROM Cardiovascular: Rhythm Regular, No Murmur Respiratory: Normal Breath Sounds, No Accessory Muscle Use Gastrointestinal/Abdominal: Bowel Sounds (QUIET: UPPER. PRESENT: LOWER), Soft, Tenderness (diffuse.), No Guarding, No Rebound Back: Normal Inspection Extremity: Normal ROM Neurological/Psych: Oriented x3, Normal Speech ED Course And Treatment - Laboratory Results Result Diagrams: 09/13/16 15:51 09/13/16 15:51 Lab Interpretation: Abnormal Interpretation Of Abnormal: Severe renal failure with K+ 7.3 O2 Sat by Pulse Oximetry: 99 Pulse Ox Interpretation: Normal Progress Note: 5:00 Patient continues to c/o abdominal pain but has no further vomiting. Reassessment Condition: Improved - Physician Consult Information Time Consulting Physician Contacted: 17:50 Physician Contacted: Sal Gamez Outcome Of Conversation: He knows th patient well. She will be admitted for pain control and dialysis. Disposition - Disposition Disposition: HOSPITALIZED Disposition Time: 17:51 Condition: FAIR - POA Present On Arrival: Poor Glycemic Control - Clinical Impression Clinical Impression: ESRD on hemodialysis, Diabetic gastroparesis, Nausea & vomiting - Scribe Statement The provider has reviewed the documentation as recorded by the Baron Carcamo All medical record entries made by the Crissyibisrael were at my direction and personally dictated by me. I have reviewed the chart and agree that the record accurately reflects my personal performance of the history, physical exam, medical decision making, and the department course for this patient. I have also personally directed, reviewed, and agree with the discharge instructions and disposition.
[2016-09-13] MEDS ORDERED: Sodium Chloride 0.9% 1,000 ML IV ONE (15:36)
[2016-09-13] MEDS ORDERED: HYDROmorphone 1 mg/ml ISec IVP STA (15:36)
[2016-09-13 15:57] LABS: BASO # 0.1 K/uL (0.0-0.2); BASO % 1.5 % (0.0-2.0); EOS # 0.7 K/uL (0.0-0.7); EOS % 7.5 % (0.0-4.0); LYMPH # 1.5 K/uL (1.0-4.3); LYMPH % 16.3 % (20.0-40.0); MEAN CELL VOLUME 93.9 fL (81.0-99.0); MEAN CORPUSCULAR HEMOGLOBIN 30.7 pg (27.0-31.0); MEAN CORPUSCULAR HGB CONC 32.7 g/dL (33.0-37.0); MEAN PLATELET VOLUME 9.1 fL (7.2-11.7); MONO # 0.5 K/uL (0.0-0.8); MONO % 5.2 % (0.0-10.0); WHITE BLOOD COUNT 9.5 K/uL (4.8-10.8)
[2016-09-13 16:10] LABS: BILIRUBIN,TOTAL 1.2 mg/dL (0.2-1.3); CALCIUM 11.5 mg/dl (8.6-10.4); TOTAL PROTEIN 10.9 g/dL (6.3-8.3)
[2016-09-13 16:14] LABS: POTASSIUM 7.3 mmol/L (3.6-5.2)
[2016-09-13] MEDS ORDERED: DiphenhydrAMINE 50 mg/ml Inj IVP PRN (17:39)
[2016-09-13] MEDS ORDERED: Enalaprilat 2.5 MG/2 ML IV ONE ×3 (18:00→22:30)
[2016-09-13] MEDS: (Novolog) Insulin Aspart, Recombinant 100 u/ml 10 ml vial SC SCH (22:36)
[2016-09-13] MEDS: HYDROmorphone 1 mg/ml ISec IVP PRN (22:50)
--- NOTE | 2016-09-14 00:10 | CP.PCM.HP ---
History of Present Illness - History of Present Illness History of Present Illness: CC: abdominal Pain associated with nausea/vomitting HPI: 40-year-old female with PMH of htn, dm type 1, on HD due to ESRD, Diabetic gastroparesisi presents to the emergency department with complaints of generalized, severe abdominal pain that is associated with nausea and bilious vomiting, and non-bloody/watery diarrhea.she felt weak ansd came to ER, systolic B.P was above 200, All other Hx is limited due to clinical condition. Patient has a Hx of gastroparesis, and this presentation is similar to prior episodes. She is a renal failure patient and has not had dialysis.Her Blood pressure was noted to be elevated Present on Admission - Present on Admission Any Indicators Present on Admission: No Review of Systems - Review of Systems Systems not reviewed;Unavailable: Unstable Vital Signs - Constitutional Constitutional: Fatigue, Lethargy, Weakness - EENT Eyes: absent: As Per HPI, Blind Spots, Blurred Vision, Change in Vision, Decreased Night Vision, Diplopia, Discharge, Dry Eye, Exophthalmos, Floaters, Irritation, Itchy Eyes, Loss of Peripheral Vision, Pain, Photophobia, Requires Corrective Lenses, Sees Flashes, Spots in Vision, Tunnel Vision, Other Visual Disturbances, Loss of Vision, Other Nose/Mouth/Throat: absent: As Per HPI, Epistaxis, Nasal Congestion, Nasal Discharge, Nasal Obstruction, Nasal Trauma, Nose Pain, Post Nasal Drip, Sinus Pain, Sinus Pressure, Bleeding Gums, Change in Voice, Dental Pain, Dry Mouth, Dysphagia, Halitosis, Hoarsness, Lip Swelling, Mouth Lesions, Mouth Pain, Odynophagia, Sore Throat, Throat Swelling, Tongue Swelling, Facial Pain, Neck Pain, Neck Mass, Other - Cardiovascular Cardiovascular: absent: As Per HPI, Acrocyanosis, Chest Pain, Chest Pain at Rest , Chest Pain with Activity, Claudication, Diaphoresis, Dyspnea, Dyspnea on Exertion, Edema, Irregular Heart Rhythm, Pain Radiating to Arm/Neck/Jaw, Leg Edema, Leg Ulcers, Lightheadedness, Orthopnea, Palpitations, Paroxysmal Nocturnal Dyspnea, Pedal Edema, Radiating Pain, Rapid Heart Rate, Slow Heart Rate, Syncope, Other - Gastrointestinal Gastrointestinal: Abdominal Pain, Nausea, Vomiting - Genitourinary Genitourinary: absent: As Per HPI, Change in Urinary Stream, Difficulty Urinating, Dysuria, Flank Pain, Hematuria, Pyuria, Nocturia, Urinary Incontinence, Urinary Frequency, Urinary Hesitance, Urinary Urgency, Voiding Freq/Small Amts, Freq UTI, Hx Renal/Bladder Calculi, Hx /Renal Surgery, Bladder Distension, Other - Musculoskeletal Musculoskeletal: Abnormal Gait, Muscle Weakness, Myalgias, Numbness, Tingling - Psychiatric Psychiatric: absent: As Per HPI, Abnormal Sleep Pattern, Anhedonia, Anxiety, Auditory Hallucinations, Behavioral Changes, Change in Appetite, Change in Libido, Confusion, Depression, Difficulty Concentrating, Hallucinations, Homicidal Ideation, Hopelessness, Irritability, Memory Loss, Mood Swings, Panic Attacks, Paranoia, Suicidal Ideation, Visual Hallucinations, Tactile Hallucinations, Other - Endocrine Endocrine: absent: As Per HPI, Change in Body Appearance, Change in Libido, Cold Intolorance, Deepening of Voice, Excessive Sweating, Fatigue, Flushing, Heat Intolorance, Increase in Ring/Shoe/Hat Size, Palpitations, Polydipsia, Polyphagia, Polyuria, Other Past Patient History - Infectious Disease Hx of Infectious Diseases: None - Past Medical History & Family History Past Medical History?: Yes - Past Social History Smoking Status: Never Smoked - CARDIAC Hx Hypercholesterolemia: Yes Hx Hypertension: Yes - PULMONARY Hx Pneumonia: Yes - HEENT Hx HEENT Problems: Yes Hx Cataracts: Yes (09/23/14 left) - RENAL Hx Chronic Kidney Disease: Yes - ENDOCRINE/METABOLIC Hx Endocrine Disorders: Yes Hx Diabetes Mellitus Type 2: Yes - HEMATOLOGICAL/ONCOLOGICAL Hx Anemia: Yes - INTEGUMENTARY Hx Dermatological Problems: Yes Other/Comment: right great toe amputation - MUSCULOSKELETAL/RHEUMATOLOGICAL Hx Falls: No - GASTROINTESTINAL Hx Gastritis: Yes (diabetic gastroparesis) - GENITOURINARY/GYNECOLOGICAL Hx Genitourinary Disorders: Yes Other/Comment: renal failure - PSYCHIATRIC Hx Depression: Yes Hx Substance Use: No - SURGICAL HISTORY Hx Cholecystectomy: Yes - ANESTHESIA Hx Anesthesia: Yes Hx Anesthesia Reactions: No Hx Malignant Hyperthermia: No Meds Home Medications: Home Medication List Medication Instructions Recorded Confirmed Type Calcium Acetate [Phoslo] 667 mg PO TID #60 tab 09/15/16 Rx NIFEdipine ER [Procardia XL] 90 mg PO DAILY #30 ter 09/15/16 Rx Pantoprazole Sodium [Protonix] 40 mg PO DAILY #30 09/15/16 Rx cloNIDine 0.3 mg/24 hr 2 patch TD Q7D@1000 #30 patch 09/15/16 Rx [catapres-TTS3 0.3 mg/24 hr] fentaNYL 50 mcg/hr [Duragesic 1 patch TD Q72H #10 patch 09/15/16 Rx Patch 50 mcg/hr] hydrALAZINE [Apresoline] 100 mg PO Q8 #90 tab 09/15/16 Rx Allergies/Adverse Reactions: Allergies Allergy/AdvReac Type Severity Reaction Status Date / Time ketorolac tromethamine Allergy Verified 10/02/16 06:15 [From Toradol] morphine Allergy Verified 10/02/16 06:15 tramadol Allergy Verified 10/02/16 06:15 Physical Exam - Constitutional Appears: In Acute Distress - Head Exam Head Exam: ATRAUMATIC, NORMAL INSPECTION, NORMOCEPHALIC - Eye Exam Eye Exam: EOMI, Normal appearance, PERRL Pupil Exam: NORMAL ACCOMODATION, PERRL - Respiratory Exam Respiratory Exam: Clear to Auscultation Bilateral, NORMAL BREATHING PATTERN - Cardiovascular Exam Cardiovascular Exam: REGULAR RHYTHM - GI/Abdominal Exam GI & Abdominal Exam: Guarding, Rebound, Tenderness - Rectal Exam Rectal Exam: NORMAL INSPECTION Results - Vital Signs Recent Vital Signs: Last Vital Signs Temp 98.4 F 09/13/16 22:00 Pulse 82 09/13/16 22:20 Resp 20 09/13/16 22:00 BP 179/97 H 09/13/16 22:48 Pulse Ox 100 09/13/16 22:00 - Labs Result Diagrams: 09/13/16 15:51 09/15/16 10:59 Labs: Laboratory Results - last 24 hr 09/13/16 09/13/16 18:55 22:29 POC Glucose (mg/dL) 96 102 Assessment & Plan (1) Diabetic gastroparesis Status: Chronic (2) ESRD on hemodialysis Status: Acute (3) Nausea & vomiting Status: Acute (4) Abdominal pain Status: Acute (5) Chronic ulcer of left foot Status: Acute
[2016-09-14] MEDS: HYDROmorphone 1 mg/ml ISec IVP PRN ×6 (02:13→23:27)
[2016-09-14] MEDS ORDERED: Influenza Virus Vaccine 45 mcg/0.5 ml Syr IM ONE (03:24)
[2016-09-14] MEDS ORDERED: Enalaprilat 2.5 MG/2 ML IV SCH (06:00)
[2016-09-14] MEDS: Nitroglycerin 2% Ointment Foilpak UD TOP SCH ×3 (06:55→19:12)
[2016-09-14] MEDS: (Novolog) Insulin Aspart, Recombinant 100 u/ml 10 ml vial SC SCH ×4 (09:01→21:31)
--- NOTE | 2016-09-14 09:31 | PN ---
DATE: 09/14/2016 LOCATION: 568, bed B. This is a 40-year-old female seen for GI consultation on 09/13/16, as requested by the admitting MD, reexamined again this morning with the complaint of poor oral intake and generalized weakness and mal aise with recurrent episode of nausea, dyspepsia, and vomiting on and off. The most recent lab results showed hemoconcentration with increased BUN and creatinine, as well as in creased potassium with increased hemoglobin and hematocrit. No reported active bleeding. No chest pain, significant shortness of breath, or palpitation. PHYSICAL EXAMINATION: GENERAL: A 40-year-old female appears to be somewhat sleepy and awake. VITAL SIGNS: Pulse of 84, respiratory rate 20-22, and the latest blood pressure of 200/100. The pat ient is afebrile. HEENT: Showed pale, dry oral mucoid membrane. Nonicteric sclerae. LUNGS: Few scattered crepitations, decreased air entry at bases. HEART: Positive S1 and S2. ABDOMEN: Soft. Bowel sounds are present. No mass or organomegaly. No rebound tenderness or guardi ng. EXTREMITIES: Lower extremity mild edematous changes. No clubbing or cyanosis. NEUROLOGIC: No reported new neurological deficits, sensory or motor. IMPRESSION: 1. Reexacerbation of peptic ulcer disease to rule out gastric versus duodenal ulcer. 2. Recurrent gastroparesis. 3. Poorly-controlled hypertension. 4. Known history of diabetes mellitus, depression, and hyperlipidemia. 5. End-stage renal disease on hemodialysis. Known history of status post cholecystectomy. 6. Electrolyte imbalance secondary to above. SUGGESTION: 1. I agree with your plan. 2. Increase the dose of Reglan IV. 3. Serum lipase, amylase level. The patient for upper endoscopy at a.m. when she is more stable clinically, to rule out gastric versu s duodenal ulcer. Further recommendation to follow, and repeat abdominal ultrasound to be considered. Colleen Peraza MD cc: 14 TT: 09/14/2016 09:30:10 Confirmation # [id number] Dictation # [id number] elvis
[2016-09-14] MEDS ORDERED: Pneumococcal 23-Valent Vaccine IM ONE (10:24)
[2016-09-14 11:47] LABS: POTASSIUM 5.6 mmol/L (3.6-5.2)
[2016-09-14 11:50] LABS: CALCIUM 9.5 mg/dl (8.6-10.4)
[2016-09-14] MEDS: NIFEdipine 90 mg ER Tab PO SCH ×2 (11:53→12:48)
--- NOTE | 2016-09-14 13:24 | CP.PCM.CON ---
History of Present Illness - History of Present Illness History of Present Illness: 40 y/o female with ESRD on maintenance HD, HTN,IDDM with complications, CAD multiple hospital admissions for abdominal pain, N&V was admitted last pm for c/o vomiting & abdominal psin. She was sent to ER from dialysis unit because of vomiting & did not get her scheduled dialysis. In ER was found to have K+ of 7.3 & BP was 239/98 Pt received dialysis last evening. Past Patient History - Infectious Disease Hx of Infectious Diseases: None - Past Medical History & Family History Past Medical History?: Yes - Past Social History Smoking Status: Never Smoked - CARDIAC Hx Hypercholesterolemia: Yes Hx Hypertension: Yes - PULMONARY Hx Pneumonia: Yes - HEENT Hx HEENT Problems: Yes Hx Cataracts: Yes (09/23/14 left) - RENAL Hx Chronic Kidney Disease: Yes - ENDOCRINE/METABOLIC Hx Endocrine Disorders: Yes Hx Diabetes Mellitus Type 2: Yes - HEMATOLOGICAL/ONCOLOGICAL Hx Anemia: Yes - INTEGUMENTARY Hx Dermatological Problems: Yes Other/Comment: right great toe amputation - MUSCULOSKELETAL/RHEUMATOLOGICAL Hx Falls: No - GASTROINTESTINAL Hx Gastritis: Yes (diabetic gastroparesis) - GENITOURINARY/GYNECOLOGICAL Hx Genitourinary Disorders: Yes Other/Comment: renal failure - PSYCHIATRIC Hx Depression: Yes Hx Substance Use: No - SURGICAL HISTORY Hx Cholecystectomy: Yes - ANESTHESIA Hx Anesthesia: Yes Hx Anesthesia Reactions: No Hx Malignant Hyperthermia: No Meds Allergies/Adverse Reactions: Allergies Allergy/AdvReac Type Severity Reaction Status Date / Time ketorolac tromethamine Allergy Verified 09/01/16 23:34 [From Toradol] morphine Allergy Verified 09/01/16 23:34 tramadol Allergy Verified 09/01/16 23:34 - Medications Medications: Current Medications Calcium Acetate (Phoslo) 667 mg PO TID [facility] Last Admin: 09/14/16 11:00 Dose: 667 mg Carvedilol (Coreg) 12.5 mg PO BID [facility] Last Admin: 09/14/16 10:59 Dose: 12.5 mg Clonidine HCl (Catapres-Tts3 0.3 Mg/24 Hr) 2 patch TD Q7D@1000 [facility] Diphenhydramine HCl (Benadryl) 25 mg IVP Q4 PRN PRN Reason: Itching / Pruritus Enalaprilat (Vasotec) 2.5 mg IVP Q6H [facility] Fentanyl (Duragesic) 1 patch TD Q72H [facility] Last Admin: 09/13/16 23:02 Dose: Not Given Heparin Sodium (Porcine) (Heparin) 5,000 units SC Q8H [facility] Last Admin: 09/14/16 11:00 Dose: Not Given Hydralazine HCl (Apresoline) 100 mg PO Q8 [facility] Last Admin: 09/14/16 06:55 Dose: Not Given Hydromorphone HCl (Dilaudid) 1 mg IVP Q4H PRN PRN Reason: Pain, moderate (4-7) Last Admin: 09/14/16 09:58 Dose: 1 mg Influenza Virus Vaccine (Afluria) 45 mcg IM .ONCE ONE Stop: 09/16/16 10:01 Insulin Aspart (Novolog) 0 unit SC [facility] PRN Reason: Protocol Last Admin: 09/14/16 11:30 Dose: Not Given Metoclopramide HCl (Reglan) 10 mg IVP [facility] Last Admin: 09/14/16 11:27 Dose: 10 mg Nifedipine (Procardia Xl) 90 mg PO DAILY [facility] Last Admin: 09/14/16 12:48 Dose: 90 mg Nitroglycerin (Nitro-Bid 2% Oint) 1 ea TOP Q6 [facility] Last Admin: 09/14/16 12:36 Dose: 1 ea Ondansetron HCl (Zofran Inj) 4 mg IVP Q4 PRN PRN Reason: Nausea/Vomiting Last Admin: 09/14/16 11:00 Dose: 4 mg Pantoprazole Sodium (Protonix Inj) 40 mg IVP DAILY [facility] Last Admin: 09/14/16 11:00 Dose: 40 mg Pneumococcal Polyvalent Vaccine (Pneumovax 23 Vaccine) 0.5 ml IM .ONCE ONE Stop: 09/17/16 14:01 Physical Exam - Constitutional Appears: No Acute Distress - Head Exam Head Exam: ATRAUMATIC, NORMOCEPHALIC - Eye Exam Additional comments: No icterus - Respiratory Exam Additional comments: Lungs clear - Cardiovascular Exam Cardiovascular Exam: REGULAR RHYTHM - GI/Abdominal Exam GI & Abdominal Exam: Soft Additional comments: palp not performed because of abdominal pain - Extremities Exam Additional comments: No edema or cyanosis Results - Vital Signs Recent Vital Signs: Last Vital Signs Temp 98.3 F 09/14/16 08:53 Pulse 81 09/14/16 08:53 Resp 80 H 09/14/16 12:43 BP 191/95 H 09/14/16 12:43 Pulse Ox 95 09/14/16 08:53 - Labs Result Diagrams: 09/13/16 15:51 09/14/16 11:26 Labs: Laboratory Results - last 24 hr 09/13/16 09/13/16 09/14/16 18:55 22:29 06:48 PT INR APTT Sodium Potassium Chloride Carbon Dioxide Anion Gap BUN Creatinine Est GFR ( Amer) Est GFR (Non-Af Amer) POC Glucose (mg/dL) 96 102 99 Random Glucose Calcium Amylase Lipase 09/14/16 09/14/16 09/14/16 09:55 11:25 11:26 PT 11.2 INR 1.0 APTT 36 H Sodium 135 Potassium 5.6 H Chloride 91 L Carbon Dioxide 32 H Anion Gap 18 BUN 37 H Creatinine 5.6 H Est GFR ( Amer) 10 Est GFR (Non-Af Amer) 8 POC Glucose (mg/dL) 101 Random Glucose 96 Calcium 9.5 Amylase 155 H D Lipase 176 Assessment & Plan - Assessment and Plan (Free Text) Assessment: ESRD, DD Uncontrolled HTN CAD Abdominal pain IDDM Plan: K+ is still high & BP remains uncontrolled. Pt is scheduled for extra dialysis today
[2016-09-14] MEDS: Enalaprilat 2.5 MG/2 ML IVP SCH ×2 (13:30→19:10)
[2016-09-15] MEDS: Enalaprilat 2.5 MG/2 ML IVP SCH ×3 (00:30→20:12)
[2016-09-15] MEDS: Nitroglycerin 2% Ointment Foilpak UD TOP SCH ×4 (00:45→18:17)
--- NOTE | 2016-09-15 01:06 | CP.PCM.PN ---
Subjective - Date & Time of Evaluation Date of Evaluation: 09/14/16 Time of Evaluation: 10:35 - Subjective Subjective: Pt seen & examined , is weak and lethargic,s/p HD, although B.P is improving is on medical management Objective - Vital Signs/Intake and Output Vital Signs (last 24 hours): Temp Pulse Resp BP Pulse Ox 98.1 F 85 18 123/68 98 09/14/16 15:30 09/14/16 23:25 09/14/16 19:20 09/14/16 23:25 09/14/16 19:20 Intake and Output: 09/14/16 09/15/16 18:59 06:59 Intake Total 600 350 Output Total 30 Balance 570 350 - Medications Medications: Current Medications Calcium Acetate (Phoslo) 667 mg PO TID [facility] Last Admin: 09/14/16 19:01 Dose: 667 mg Carvedilol (Coreg) 12.5 mg PO BID [facility] Last Admin: 09/14/16 19:01 Dose: 12.5 mg Clonidine HCl (Catapres-Tts3 0.3 Mg/24 Hr) 2 patch TD Q7D@1000 [facility] Diphenhydramine HCl (Benadryl) 25 mg IVP Q4 PRN PRN Reason: Itching / Pruritus Enalaprilat (Vasotec) 2.5 mg IVP Q6H [facility] Last Admin: 09/14/16 19:10 Dose: Not Given Fentanyl (Duragesic) 1 patch TD Q72H [facility] Last Admin: 09/13/16 23:02 Dose: Not Given Heparin Sodium (Porcine) (Heparin) 5,000 units SC Q8H [facility] Last Admin: 09/14/16 19:02 Dose: Not Given Hydralazine HCl (Apresoline) 100 mg PO Q8 [facility] Last Admin: 09/14/16 21:17 Dose: 100 mg Hydromorphone HCl (Dilaudid) 1 mg IVP Q4H PRN PRN Reason: Pain, moderate (4-7) Last Admin: 09/14/16 23:27 Dose: 1 mg Influenza Virus Vaccine (Afluria) 45 mcg IM .ONCE ONE Stop: 09/16/16 10:01 Insulin Aspart (Novolog) 0 unit SC A[facility]S [facility] PRN Reason: Protocol Last Admin: 09/14/16 21:31 Dose: Not Given Metoclopramide HCl (Reglan) 10 mg IVP ACHS [facility] Last Admin: 09/14/16 21:17 Dose: 10 mg Nifedipine (Procardia Xl) 90 mg PO DAILY [facility] Last Admin: 09/14/16 12:48 Dose: 90 mg Nitroglycerin (Nitro-Bid 2% Oint) 1 ea TOP Q6 [facility] Last Admin: 09/14/16 19:12 Dose: 1 ea Ondansetron HCl (Zofran Inj) 4 mg IVP Q4 PRN PRN Reason: Nausea/Vomiting Last Admin: 09/14/16 11:00 Dose: 4 mg Pantoprazole Sodium (Protonix Inj) 40 mg IVP DAILY [facility] Last Admin: 09/14/16 11:00 Dose: 40 mg Pneumococcal Polyvalent Vaccine (Pneumovax 23 Vaccine) 0.5 ml IM .ONCE ONE Stop: 09/17/16 14:01 - Labs Labs: 09/14/16 11:26 PT 11.2 SECONDS (9.7-12.2) 09/14/16 09:55 INR 1.0 09/14/16 09:55 APTT 36 SECONDS (21-34) H 09/14/16 09:55 - Constitutional Appears: No Acute Distress - Head Exam Head Exam: ATRAUMATIC, NORMAL INSPECTION, NORMOCEPHALIC - Eye Exam Eye Exam: EOMI, Normal appearance, PERRL Pupil Exam: NORMAL ACCOMODATION, PERRL - Respiratory Exam Respiratory Exam: Clear to Ausculation Bilateral, NORMAL BREATHING PATTERN - Cardiovascular Exam Cardiovascular Exam: REGULAR RHYTHM, +S1, +S2. absent: Murmur - GI/Abdominal Exam GI & Abdominal Exam: Soft, Normal Bowel Sounds. absent: Tenderness Assessment and Plan (1) Diabetic gastroparesis Status: Chronic (2) ESRD on hemodialysis Status: Acute (3) Nausea & vomiting Status: Acute (4) Abdominal pain Status: Acute (5) Chronic ulcer of left foot Status: Acute
[2016-09-15] MEDS: HYDROmorphone 1 mg/ml ISec IVP PRN ×4 (03:35→18:16)
[2016-09-15] MEDS: (Novolog) Insulin Aspart, Recombinant 100 u/ml 10 ml vial SC SCH ×3 (07:39→18:04)
[2016-09-15] MEDS: NIFEdipine 90 mg ER Tab PO SCH (10:07)
[2016-09-15 11:21] LABS: CHLORIDE 89 mmol/L (98-107); SODIUM 133 mmol/L (132-148)
[2016-09-15 11:22] LABS: POTASSIUM 5.2 mmol/L (3.6-5.2)
[2016-09-15 11:24] LABS: ALB/GLOB RATIO 1.3 (1.0-2.1); ALKALINE PHOSPHATASE 99 U/L (38-126); ALT/SGPT 40 U/L (9-52); AST/SGOT 38 U/L (14-36); BILIRUBIN,TOTAL 0.4 mg/dL (0.2-1.3); BLOOD UREA NITROGEN 34 mg/dL (7-17); CALCIUM 10.1 mg/dl (8.6-10.4); CARBON DIOXIDE 32 mmol/L (22-30); GFR AFRICAN-AMERICAN 10; GLUCOSE,RANDOM 92 mg/dL (65-105); TOTAL PROTEIN 8.8 g/dL (6.3-8.3)
[2016-09-15] MEDS ORDERED: Propofol 10 mg/ml Inj (20 ML) ONE (11:53)
--- NOTE | 2016-09-15 12:46 | CON ---
DATE: 09/13/2016 LOCATION: 658, bed A. This is from Dr. Colleen Peraza to Dr. Sal Gamez. I was called for a GI consultation by the admitting MD. The patient is seen and fully examined on at the request by the admitting medical team. The entire chart is reviewed including, but n ot limited to, the most recent lab and radiology study results, current and previous medication lists , current and the previous medical events as well as allergies to medication list and all the availab le current and the previous medical records. Case discussed at length with the staff on the floor. HISTORY OF PRESENT ILLNESS: This is a 40-year-old female, known case for me from previous multiple a dmissions, who was admitted to the hospital with generalized severe weakness, severe abdominal pain, nausea and vomiting of bile contents with nonbloody watery diarrhea, chills but no fever, with genera lized weakness and malaise. The patient had previously similar episodes for which she required hospi riki admission previously. No chest pain, palpitation or significant shortness of breath. PAST MEDICAL HISTORY: Including, but not limited to: 1. Diabetes mellitus. 2. Diabetic gastroparesis. 3. Peptic ulcer disease. 4. Hyperlipidemia. 5. Known history of hypertension. 6. More than 1 time pneumonia. 7. End-stage renal disease, on hemodialysis. 8. Status post cholecystectomy. FAMILY HISTORY: Unknown. SOCIAL HISTORY: No known history of cigarette smoking or alcohol intake. ALLERGY TO MEDICATION: INCLUDING MAINLY TRAMADOL, MORPHINE AND TROMETHAMINE WELL KETOROLAC TRO METHAMINE. LABORATORY DATA: Postadmission initially showed increased hemoglobin and hematocrit to 16.3 and 50.0 with normal white blood cells and normal platelet count, with sodium 135, potassium 7.3 with increas ed BUN ____ , creatinine 7.4 compatible with the patient's known history of end-stage renal disease. Calcium was elevated to 11.5 with increased AST 49, alkaline phosphatase is elevated to 144, total p rotein 10.9 with albumin 5.4 with normal lipase level but increased amylase. PHYSICAL EXAMINATION: GENERAL: A 40-year-old female seen and examined with staff on the floor. VITAL SIGNS: Afebrile with pulse of 86, respiratory rate 20-22, blood pressure 170/94. HEENT: Showed pale, dry oral mucoid membrane. Nonicteric sclerae. LUNGS: A few scattered crepitations, decreased air entry at bases. HEART: Positive S1 and S2. ABDOMEN: Soft with slight distention and generalized tenderness. No mass or organomegaly. No rebou nd tenderness or guarding. RECTAL: The patient refused. EXTREMITIES: With lower extremities edematous changes. No clubbing or cyanosis. NEUROLOGIC: No reported new neurological deficits, sensory or motor. IMPRESSION: 1. Reexacerbation of peptic ulcer disease. 2. Diabetes mellitus with diabetic gastroparesis. 3. End-stage renal disease, on hemodialysis. 4. Poorly controlled hypertension. 5. Known history of depression as well as hyperlipidemia. 6. Status post cholecystectomy by history. 7. Electrolyte imbalance secondary to above. 8. Dehydration. SUGGESTION: 1. Agree with your plan. 2. Correct any underlying electrolyte imbalance. 3. Serum lipase, amylase level. 4. Abdominal ultrasound. 5. Reglan IV. 6. Erythromycin IV if the patient's symptoms persist. 7. Proton pump inhibitors. 8. Due to the patient's diarrhea, cancer markers including CEA to be scheduled. 9. Endoscopic evaluation of the upper GI tract to rule out gastric versus duodenal ulcer. 10. If the patient's diarrhea persists, colonoscopy to be kept in mind. Thank you for letting me participate in your patient's case management. Further recommendation to jarad shin. Colleen Peraza MD cc: 14 TT: 09/15/2016 12:45:56 Confirmation # [id number] Dictation # [id number] mn
--- NOTE | 2016-09-15 14:29 | CP.PCM.PN ---
Subjective - Date & Time of Evaluation Date of Evaluation: 09/15/16 Time of Evaluation: 12:00 - Subjective Subjective: Awake States she feels better Objective - Vital Signs/Intake and Output Vital Signs (last 24 hours): Temp Pulse Resp BP Pulse Ox 97.7 F 74 11 L 124/70 99 09/15/16 12:05 09/15/16 12:35 09/15/16 12:35 09/15/16 12:35 09/15/16 12:35 Intake and Output: 09/15/16 09/15/16 06:59 18:59 Intake Total 350 75 Output Total 0 Balance 350 75 - Medications Medications: Current Medications Calcium Acetate (Phoslo) 667 mg PO TID [facility] Last Admin: 09/15/16 13:15 Dose: 667 mg Carvedilol (Coreg) 12.5 mg PO BID [facility] Last Admin: 09/15/16 09:02 Dose: 12.5 mg Clonidine HCl (Catapres-Tts3 0.3 Mg/24 Hr) 2 patch TD Q7D@1000 [facility] Diphenhydramine HCl (Benadryl) 25 mg IVP Q4 PRN PRN Reason: Itching / Pruritus Enalaprilat (Vasotec) 2.5 mg IVP Q6H [facility] Last Admin: 09/15/16 07:30 Dose: Not Given Fentanyl (Duragesic) 1 patch TD Q72H [facility] Last Admin: 09/13/16 23:02 Dose: Not Given Heparin Sodium (Porcine) (Heparin) 5,000 units SC Q8H [facility] Last Admin: 09/15/16 10:07 Dose: Not Given Hydralazine HCl (Apresoline) 100 mg PO Q8 [facility] Last Admin: 09/15/16 13:15 Dose: 100 mg Hydromorphone HCl (Dilaudid) 1 mg IVP Q4H PRN PRN Reason: Pain, moderate (4-7) Last Admin: 09/15/16 13:15 Dose: 1 mg Influenza Virus Vaccine (Afluria) 45 mcg IM .ONCE ONE Stop: 09/16/16 10:01 Insulin Aspart (Novolog) 0 unit SC [facility] PRN Reason: Protocol Last Admin: 09/15/16 11:30 Dose: Not Given Metoclopramide HCl (Reglan) 10 mg IVP [facility] Last Admin: 09/15/16 11:31 Dose: Not Given Nifedipine (Procardia Xl) 90 mg PO DAILY [facility] Last Admin: 09/15/16 10:07 Dose: Not Given Nitroglycerin (Nitro-Bid 2% Oint) 1 ea TOP Q6 [facility] Last Admin: 09/15/16 12:14 Dose: Not Given Ondansetron HCl (Zofran Inj) 4 mg IVP Q4 PRN PRN Reason: Nausea/Vomiting Last Admin: 09/15/16 13:25 Dose: 4 mg Pantoprazole Sodium (Protonix Inj) 40 mg IVP DAILY [facility] Last Admin: 09/15/16 10:07 Dose: Not Given Pneumococcal Polyvalent Vaccine (Pneumovax 23 Vaccine) 0.5 ml IM .ONCE ONE Stop: 09/17/16 14:01 - Labs Labs: 09/15/16 10:59 PT 11.2 SECONDS (9.7-12.2) 09/14/16 09:55 INR 1.0 09/14/16 09:55 APTT 36 SECONDS (21-34) H 09/14/16 09:55 - Respiratory Exam Additional comments: Lungs clear - Cardiovascular Exam Cardiovascular Exam: REGULAR RHYTHM - Extremities Exam Additional comments: No edema Assessment and Plan - Assessment and Plan (Free Text) Assessment: ESRD on HD HTN Abdominal pain IDDM Plan: Scheduled for dialysis today BP is improving Continue HD MWF
[2016-09-15 15:58] VITALS: RESP 16
--- NOTE | 2016-09-15 16:36 | CP.PCM.PN ---
Subjective - Date & Time of Evaluation Date of Evaluation: 09/15/16 Time of Evaluation: 13:00 - Subjective Subjective: Pt seen an d examined today , states N/V resolved , tolerating regular diet without any issues , denies any chest pain , abdominal pain s/p EGD today ( see full details for report) Objective - Vital Signs/Intake and Output Vital Signs (last 24 hours): Temp Pulse Resp BP Pulse Ox 98 F 72 16 104/66 97 09/15/16 14:25 09/15/16 14:25 09/15/16 14:25 09/15/16 15:34 09/15/16 14:15 Intake and Output: 09/15/16 09/15/16 06:59 18:59 Intake Total 350 475 Output Total 0 Balance 350 475 - Medications Medications: Current Medications Calcium Acetate (Phoslo) 667 mg PO TID [facility] Last Admin: 09/15/16 13:15 Dose: 667 mg Carvedilol (Coreg) 12.5 mg PO BID [facility] Last Admin: 09/15/16 09:02 Dose: 12.5 mg Clonidine HCl (Catapres-Tts3 0.3 Mg/24 Hr) 2 patch TD Q7D@1000 [facility] Diphenhydramine HCl (Benadryl) 25 mg IVP Q4 PRN PRN Reason: Itching / Pruritus Enalaprilat (Vasotec) 2.5 mg IVP Q6H [facility] Last Admin: 09/15/16 07:30 Dose: Not Given Fentanyl (Duragesic) 1 patch TD Q72H [facility] Last Admin: 09/13/16 23:02 Dose: Not Given Heparin Sodium (Porcine) (Heparin) 5,000 units SC Q8H [facility] Last Admin: 09/15/16 10:07 Dose: Not Given Hydralazine HCl (Apresoline) 100 mg PO Q8 [facility] Last Admin: 09/15/16 13:15 Dose: 100 mg Hydromorphone HCl (Dilaudid) 1 mg IVP Q4H PRN PRN Reason: Pain, moderate (4-7) Last Admin: 09/15/16 13:15 Dose: 1 mg Influenza Virus Vaccine (Afluria) 45 mcg IM .ONCE ONE Stop: 09/16/16 10:01 Insulin Aspart (Novolog) 0 unit SC ACHS [facility] PRN Reason: Protocol Last Admin: 09/15/16 11:30 Dose: Not Given Metoclopramide HCl (Reglan) 10 mg IVP ACHS [facility] Last Admin: 09/15/16 11:31 Dose: Not Given Nifedipine (Procardia Xl) 90 mg PO DAILY [facility] Last Admin: 09/15/16 10:07 Dose: Not Given Nitroglycerin (Nitro-Bid 2% Oint) 1 ea TOP Q6 [facility] Last Admin: 09/15/16 12:14 Dose: Not Given Ondansetron HCl (Zofran Inj) 4 mg IVP Q4 PRN PRN Reason: Nausea/Vomiting Last Admin: 09/15/16 13:25 Dose: 4 mg Pantoprazole Sodium (Protonix Inj) 40 mg IVP DAILY [facility] Last Admin: 09/15/16 10:07 Dose: Not Given Pneumococcal Polyvalent Vaccine (Pneumovax 23 Vaccine) 0.5 ml IM .ONCE ONE Stop: 09/17/16 14:01 - Labs Labs: 09/15/16 10:59 PT 11.2 SECONDS (9.7-12.2) 09/14/16 09:55 INR 1.0 09/14/16 09:55 APTT 36 SECONDS (21-34) H 09/14/16 09:55 Assessment and Plan - Assessment and Plan (Free Text) Assessment: A/P 41 yr old female admitted for severe abdominal pain s/p EGD pt tolerating diet without issues bp stable Pt refused to return to [facility] , wants to go home Home care service called and number given to patient to f/u D/W with Dr. Gamez, stable for discharge home today and f/u with Dr. Gamez office in 1 week and continue HD as scheduled Discharge plan discussed with patient who understands and agrees with plan
[2016-09-15 17:31] VITALS: PULSE 78; TEMP 97.3; O2SAT 98
[2016-09-15 18:16] VITALS: BP 145/82
[2016-09-16] MEDS ORDERED: Influenza Virus Vaccine 45 mcg/0.5 ml Syr IM ONE (10:00)
--- NOTE | 2016-09-16 14:33 | CP.PCM.DIS ---
Provider - Provider Date of Admission: 09/13/16 17:07 Attending physician: Sal Gamez MD Time Spent in preparation of Discharge (in minutes): 30 Diagnosis - Discharge Diagnosis (1) Diabetic gastroparesis Status: Chronic (2) ESRD on hemodialysis Status: Acute (3) Nausea & vomiting Status: Acute (4) Abdominal pain Status: Acute (5) Chronic ulcer of left foot Status: Acute Hospital Course - Lab Results Lab Results: Most Recent Lab Values WBC 9.5 K/uL (4.8-10.8) D 09/13/16 15:51 RBC 5.33 Mil/uL (3.80-5.20) H 09/13/16 15:51 Hgb 16.3 g/dL (11.0-16.0) H D 09/13/16 15:51 Hct 50.0 % (34.0-47.0) H 09/13/16 15:51 MCV 93.9 fL (81.0-99.0) 09/13/16 15:51 MCH 30.7 pg (27.0-31.0) 09/13/16 15:51 MCHC 32.7 g/dL (33.0-37.0) L 09/13/16 15:51 RDW 17.0 % (11.5-14.5) H 09/13/16 15:51 Plt Count 248 K/uL (130-400) D 09/13/16 15:51 MPV 9.1 fL (7.2-11.7) 09/13/16 15:51 Neut % (Auto) 69.5 % (50.0-75.0) 09/13/16 15:51 Lymph % (Auto) 16.3 % (20.0-40.0) L 09/13/16 15:51 [place] % (Auto) 5.2 % (0.0-10.0) 09/13/16 15:51 Eos % (Auto) 7.5 % (0.0-4.0) H 09/13/16 15:51 Baso % (Auto) 1.5 % (0.0-2.0) 09/13/16 15:51 Neut # 6.6 K/uL (1.8-7.0) 09/13/16 15:51 Lymph # 1.5 K/uL (1.0-4.3) 09/13/16 15:51 [place] # 0.5 K/uL (0.0-0.8) 09/13/16 15:51 Eos # 0.7 K/uL (0.0-0.7) 09/13/16 15:51 Baso # 0.1 K/uL (0.0-0.2) 09/13/16 15:51 PT 11.2 SECONDS (9.7-12.2) 09/14/16 09:55 INR 1.0 09/14/16 09:55 APTT 36 SECONDS (21-34) H 09/14/16 09:55 Sodium 133 mmol/L (132-148) 09/15/16 10:59 Potassium 5.2 mmol/L (3.6-5.2) 09/15/16 10:59 Chloride 89 mmol/L (98-107) L 09/15/16 10:59 Carbon Dioxide 32 mmol/L (22-30) H 09/15/16 10:59 Anion Gap 17 (10-20) 09/15/16 10:59 BUN 34 mg/dL (7-17) H 09/15/16 10:59 Creatinine 5.9 MG/DL (0.7-1.2) H 09/15/16 10:59 Est GFR ( Amer) 10 09/15/16 10:59 Est GFR (Non-Af Amer) 8 09/15/16 10:59 POC Glucose (mg/dL) 143 mg/dL (65-110) H 09/15/16 16:02 Random Glucose 92 mg/dL (65-105) 09/15/16 10:59 Calcium 10.1 mg/dl (8.6-10.4) 09/15/16 10:59 Total Bilirubin 0.4 mg/dL (0.2-1.3) 09/15/16 10:59 AST 38 U/L (14-36) H D 09/15/16 10:59 ALT 40 U/L (9-52) 09/15/16 10:59 Alkaline Phosphatase 99 U/L (38-126) 09/15/16 10:59 Total Protein 8.8 g/dL (6.3-8.3) H 09/15/16 10:59 Albumin 4.9 g/dL (3.5-5.0) 09/15/16 10:59 Globulin 3.9 gm/dL (2.2-3.9) 09/15/16 10:59 Albumin/Globulin Ratio 1.3 (1.0-2.1) 09/15/16 10:59 Amylase 155 U/L (30-110) H D 09/14/16 11:26 Lipase 176 U/L (23-300) 09/14/16 11:26 Beta HCG, Quant < 2.39 mIU/ML 09/15/16 10:59 - Hospital Course Hospital Course: Pt seen today , he is for discharge ,states N/V resolved , tolerating regulat diet without any issues , denies any chest pain , abdominal pain s/p EGD today Discharge Exam - Head Exam Head Exam: ATRAUMATIC, NORMAL INSPECTION, NORMOCEPHALIC - Eye Exam Eye Exam: EOMI, Normal appearance, PERRL Pupil Exam: NORMAL ACCOMODATION, PERRL - ENT Exam ENT Exam: Mucous Membranes Moist - Respiratory Exam Respiratory Exam: Clear to PA & Lateral, NORMAL BREATHING PATTERN - Cardiovascular Exam Cardiovascular Exam: REGULAR RHYTHM, +S1, +S2 - GI/Abdominal Exam GI & Abdominal Exam: Normal Bowel Sounds Discharge Plan - Discharge Medications Prescriptions: cloNIDine 0.3 mg/24 hr [catapres-TTS3 0.3 mg/24 hr] 2 patch TD Q7D@1000 #30 patch fentaNYL 50 mcg/hr [Duragesic Patch 50 mcg/hr] 1 patch TD Q72H #10 patch Calcium Acetate [Phoslo] 667 mg PO TID #60 tab Pantoprazole Sodium [Protonix] 40 mg PO DAILY #30 - Follow Up Plan Condition: FAIR Disposition: HOME/ ROUTINE Instructions: Metoclopramide (By mouth), Oxycodone/Acetaminophen (By mouth), Fentanyl (Absorbed through the skin), Clonidine (Absorbed through the skin), Carvedilol (By mouth), Calcium Acetate (By mouth), Pantoprazole (By mouth), Dialysis Diet (DC), Hyperkalemia (DC), Upper Endoscopy (DC), End Stage Kidney Disease (DC) Additional Instructions: f/u with Dr. Gamez office in 1 week Continue HD as scheduled all prescription sent to pharmacy except fentanyl and percocet Referrals: Sal Gamez MD [Staff Provider] -
[2016-09-17] MEDS ORDERED: Pneumococcal 23-Valent Vaccine IM ONE (14:00)
== END 2016-09-15 20:00 | disposition home or self-care (01) | DRG 73 ==
LOC: C.ER 14:55 → C.9E 17:07 → C.5T 20:10 → C.6T 09-14 10:33
PROVIDERS: ADMIT Internal Medicine; ATTEND Internal Medicine
PROC: 0DB68ZX Excision of Stomach, Via Natural or Artificial Opening Endoscopic, Diagnostic (ICD-10-PCS; principal; 2016-09-15 11:56)
DX: E10.43 Type 1 diabetes mellitus with diabetic autonomic (poly)neuropathy (principal); N18.6 End stage renal disease; E10.22 Type 1 diabetes mellitus with diabetic chronic kidney disease; I12.0 Hypertensive chronic kidney disease with stage 5 chronic kidney disease or end stage renal disease; Z68.1 Body mass index [BMI] 19.9 or less, adult; K31.84 Gastroparesis; Z79.4 Long term (current) use of insulin; Z99.2 Dependence on renal dialysis; E87.5 Hyperkalemia; K29.50 Unspecified chronic gastritis without bleeding; K44.9 Diaphragmatic hernia without obstruction or gangrene; K29.80 Duodenitis without bleeding; K27.9 Peptic ulcer, site unspecified, unspecified as acute or chronic, without hemorrhage or perforation; E78.5 Hyperlipidemia, unspecified; F32.89 Other specified depressive episodes; Z87.01 Personal history of pneumonia (recurrent); L97.529 Non-pressure chronic ulcer of other part of left foot with unspecified severity; E10.621 Type 1 diabetes mellitus with foot ulcer; K29.70 Gastritis, unspecified, without bleeding

== ENCOUNTER 2016-09-24 12:43 | Inpatient (IN) | payer MEDICARE, OTHER ==
[2016-09-24 12:43] VITALS: BMI 27.4
[2016-09-24] MEDS ORDERED: DiphenhydrAMINE 50 mg/ml Inj IVP STA ×2 (13:27→14:23)
[2016-09-24] MEDS ORDERED: HYDROmorphone 1 mg/ml ISec IVP STA (13:27)
[2016-09-24] MEDS ORDERED: Sodium Chloride 0.9% 500 ML IV ONE (13:27)
[2016-09-24] MEDS ORDERED: DiphenhydrAMINE 50 mg/ml Inj ONE ×2 (13:32→14:30)
--- NOTE | 2016-09-24 13:32 | C.PDOC ---
History Of Present Illness 40 year old patient, with a past medical history of end stage renal disease on dialysis, hypertension, diabetes, and known gastroparesis, presents to the ED complaining of recurring severe abdominal pain for the past 2 days. Patient also complains of vomiting and unable to take any of her medications. Patient is well known in the ED for vomiting and severe abdominal pain. Patient was admitted on 09/13/16 for a EGD endoscopy, and gastric-duodenal biopsy. Patient denies fever, diarrhea, or other complaints at this time. Time Seen by Provider: 09/24/16 13:16 Chief Complaint (Nursing): Abdominal Pain History Per: Patient History/Exam Limitations: no limitations Onset/Duration Of Symptoms: Days (2) Current Symptoms Are (Timing): Still Present Context: Other Severity: Severe Pain Scale Rating Of: 7 Location Of Pain/Discomfort: Diffuse Radiation Of Pain To:: None Quality Of Discomfort: "Pain" Associated Symptoms: Vomiting Exacerbating Factors: None Alleviating Factors: None Last Bowel Movement: Today Recent travel outside of the [place]: No Additional History Per: Prior Records Past Medical History Reviewed: Historical Data, Nursing Documentation, Vital Signs Vital Signs: Last Vital Signs Temp 97.5 F L 09/24/16 12:47 Pulse 90 09/24/16 12:47 Resp 22 09/24/16 12:47 BP 216/100 H 09/24/16 12:47 Pulse Ox 98 09/24/16 14:23 - Medical History PMH: Anemia, Depression, Diabetes, Gastritis (diabetic gastroparesis), HTN, Hypercholesterolemia, Pneumonia, End Stage Renal Disease, Chronic Kidney Disease Surgical History: Cholecystectomy - [facility] Procedures BONE BIOPSY NEC (04/07/13) CATARAC PHACOEMULS/ASPIR (09/23/14) CONTRAST ARTERIOGRAM NEC (07/17/13) CONTRAST ARTERIOGRAM-LEG (04/07/13) DIALYSIS ARTERIOVENOSTOM (04/07/13) ESOPHAGOGASTRODUODENOSCOPY [EGD] W/CLOSED BIOPSY (09/19/13) EXCIS DEBRIDE OF WOUND, INFECT, OR BURN (07/17/13) EXCISION OF STOMACH, ENDO, DIAGN (09/13/16) EXCISION OF STOMACH, PYLORUS, ENDO, DIAGN (03/14/15) EXTRACTION OF LEFT LOWER LEG SKIN, EXTERNAL APPROACH (06/16/16) HEMODIALYSIS (01/01/15) INCIS W REM OF FORIEGN BODY OR DEV FROM SKIN & SUBCUT TISSUE (05/27/13) INDIVID PSYCHOTHERAP NEC (04/20/13) INJECT/INFUSE NEC (11/09/13) INSERT LENS AT CATAR EXT (09/23/14) INSPECTION OF UPPER INTESTINAL TRACT, ENDO (03/10/16) OCCUPATIONAL THERAPY (04/30/13) OTHER GROUP THERAPY (04/20/13) OTHER SKIN & SUBQ I D (07/17/13) PERFORMANCE OF URINARY FILTRATION, MULTIPLE (08/14/16) PERFORMANCE OF URINARY FILTRATION, SINGLE (09/02/16) PHYSICAL THERAPY NEC (04/30/13) TRANSFUSE NONAUT RED BLOOD CELLS IN PERIPH VEIN, PERC (06/10/15) ULTRASONOGRAPHY OF RIGHT AND LEFT HEART, TRANSESOPHAGEAL (06/19/15) Family History: States: Diabetes - Social History Hx Tobacco Use: No Hx Alcohol Use: No Hx Substance Use: No - Immunization History Hx Tetanus Toxoid Vaccination: Yes Hx Influenza Vaccination: Yes Hx Pneumococcal Vaccination: Yes Review Of Systems Except As Marked, All Systems Reviewed And Found Negative. Constitutional: Negative for: Fever Gastrointestinal: Positive for: Vomiting, Abdominal Pain. Negative for: Diarrhea Physical Exam - Physical Exam Appears: Non-toxic, In Acute Distress Skin: Warm, Dry Head: Atraumatic, Normacephalic Oral Mucosa: Moist Neck: Normal ROM, Supple Chest: Symmetrical Cardiovascular: Rhythm Regular Respiratory: Normal Breath Sounds, No Rales, No Rhonchi, No Wheezing Gastrointestinal/Abdominal: Bowel Sounds (quiet), Soft, Tenderness (diffuse), Guarding, No Rebound, Other (pushing away provider hand and refusing exam due to pain) Back: Normal Inspection, No CVA Tenderness Extremity: Normal ROM Neurological/Psych: Oriented x3 Gait: Steady ED Course And Treatment - Laboratory Results Result Diagrams: 09/24/16 13:42 09/24/16 13:42 Lab Interpretation: Abnormal (Consistent with renal failure, K+ hemolyzed but 7.0, BUN 36 Cr 6.1, glucose 64) O2 Sat by Pulse Oximetry: 98 (room air) Pulse Ox Interpretation: Normal Reevaluation Time: 14:33 Reassessment Condition: Improved (but still c/o pain after Reglan, Zofran, Protonix and Pepcid and Dilaudid) - Physician Consult Information Time Consulting Physician Contacted: 14:33 Physician Contacted: Sal Gamez Outcome Of Conversation: Patient to be admitted for pain control and dialysis Medical Decision Making Medical Decision Making: Patient's blood pressure is 216/100. Plan: * EKG * Labs * Benadryl * Dilaudid * Pepcid * Protonix * Reglan * IV fluids Progress: 14:[address] Gamez who is aware of the plan and will admit the patient. Disposition - Disposition Disposition: HOSPITALIZED Disposition Time: 14:34 Condition: IMPROVED - POA Present On Arrival: None - Clinical Impression Clinical Impression: Hypertension associated with stage 4 chronic kidney disease due to type 2 diabetes mellitus, ESRD on hemodialysis, Diabetic gastroparesis, Intractable vomiting with nausea, Abdominal pain - Scribe Statement The provider has reviewed the documentation as recorded by the Scribisrael Guerra Provider Attestation: All medical record entries made by the Scribe were at my direction and personally dictated by me. I have reviewed the chart and agree that the record accurately reflects my personal performance of the history, physical exam, medical decision making, and the department course for this patient. I have also personally directed, reviewed, and agree with the discharge instructions and disposition.
[2016-09-24 13:45] LABS: BASO # 0.1 K/uL (0.0-0.2); BASO % 1.1 % (0.0-2.0); EOS # 0.8 K/uL (0.0-0.7); EOS % 6.7 % (0.0-4.0); HEMATOCRIT 41.8 % (34.0-47.0); LYMPH # 1.2 K/uL (1.0-4.3); LYMPH % 10.1 % (20.0-40.0); MEAN CELL VOLUME 92.9 fL (81.0-99.0); MEAN CORPUSCULAR HEMOGLOBIN 30.1 pg (27.0-31.0); MEAN CORPUSCULAR HGB CONC 32.4 g/dL (33.0-37.0); MEAN PLATELET VOLUME 8.9 fL (7.2-11.7); MONO # 0.4 K/uL (0.0-0.8); MONO % 3.2 % (0.0-10.0); NRBC % 0.1 % (0.0-2.0); WHITE BLOOD COUNT 11.5 K/uL (4.8-10.8)
[2016-09-24 14:06] LABS: TOTAL PROTEIN 9.1 g/dL (6.3-8.3)
[2016-09-24 14:07] LABS: CALCIUM 9.3 mg/dl (8.6-10.4)
[2016-09-24 14:16] LABS: ALB/GLOB RATIO 1.2 (1.0-2.1)
[2016-09-24] MEDS ORDERED: Dextrose 5%/0.9% NS 1,000 ML IV ONE (14:35)
[2016-09-24] MEDS ORDERED: HYDROmorphone 1 mg/ml ISec IVP PRN (19:13)
[2016-09-24] MEDS: Rosuvastatin Calcium 2.5 mg Tab PO SCH (21:14)
[2016-09-24] MEDS: Timolol 0.25% Ophth SOLN OD SCH (21:15)
[2016-09-25] MEDS: DiphenhydrAMINE 50 mg/ml Inj IVP PRN ×6 (00:36→21:50)
[2016-09-25] MEDS ORDERED: Nitroglycerin 2% Ointment Foilpak UD TOP STA (08:32)
[2016-09-25] MEDS ORDERED: Pantoprazole 40 mg EC Tab PO SCH (10:00)
[2016-09-25] MEDS: Timolol 0.25% Ophth SOLN OD SCH ×2 (10:30→18:03)
[2016-09-25 10:33] LABS: CALCIUM 8.8 mg/dl (8.6-10.4)
[2016-09-25 11:07] LABS: POTASSIUM 7.4 mmol/L (3.6-5.2)
[2016-09-25] MEDS: NIFEdipine 90 mg ER Tab PO SCH (11:29)
--- NOTE | 2016-09-25 13:35 | CP.PCM.CON ---
History of Present Illness - History of Present Illness History of Present Illness: 40 y/[facility],HT[facility],IDDM with compllications & multiple hosp admissions for abd pain, N&V, was admitted last pm for c/o abdominal pain. Pts dialysis schedule is MWF.. On adm K+ was 7 tx with meds in ER Past Patient History - Infectious Disease Hx of Infectious Diseases: None - Past Medical History & Family History Past Medical History?: Yes - Past Social History Smoking Status: Never Smoked - CARDIAC Hx Hypercholesterolemia: Yes Hx Hypertension: Yes - PULMONARY Hx Pneumonia: Yes - HEENT Hx HEENT Problems: Yes Hx Cataracts: Yes (09/23/14 left) - RENAL Hx Chronic Kidney Disease: Yes Date of Last Dialysis Treatment: 09/22/16 - ENDOCRINE/METABOLIC Hx Endocrine Disorders: Yes Hx Diabetes Mellitus Type 2: Yes - HEMATOLOGICAL/ONCOLOGICAL Hx Anemia: Yes - INTEGUMENTARY Hx Dermatological Problems: Yes Other/Comment: right great toe amputation - MUSCULOSKELETAL/RHEUMATOLOGICAL Hx Falls: No - GASTROINTESTINAL Hx Gastritis: Yes (diabetic gastroparesis) - GENITOURINARY/GYNECOLOGICAL Hx Genitourinary Disorders: Yes Other/Comment: renal failure - PSYCHIATRIC Hx Depression: Yes Hx Substance Use: No - SURGICAL HISTORY Hx Cholecystectomy: Yes - ANESTHESIA Hx Anesthesia: Yes Hx Anesthesia Reactions: No Hx Malignant Hyperthermia: No Has any member of the family had a problem w/ anesthesia?: No Meds Allergies/Adverse Reactions: Allergies Allergy/AdvReac Type Severity Reaction Status Date / Time ketorolac tromethamine Allergy Verified 09/24/16 12:47 [From Toradol] morphine Allergy Verified 09/24/16 12:47 tramadol Allergy Verified 09/24/16 12:47 - Medications Medications: Current Medications Calcium Acetate (Phoslo) 667 mg PO TIDCC [facility] Last Admin: 09/25/16 08:12 Dose: 667 mg Carvedilol (Coreg) 25 mg PO BID [facility] Last Admin: 09/25/16 11:35 Dose: Not Given Clonidine HCl (Catapres-Tts3 0.3 Mg/24 Hr) 2 patch TD Q7D@1000 [facility] Diphenhydramine HCl (Benadryl) 25 mg IVP Q4 PRN PRN Reason: Itching / Pruritus Last Admin: 09/25/16 08:14 Dose: 25 mg Fentanyl (Duragesic) 1 patch TD Q72H [facility] Last Admin: 09/24/16 19:26 Dose: 1 patch Heparin Sodium (Porcine) (Heparin) 5,000 units SC Q8 [facility] Last Admin: 09/25/16 05:27 Dose: Not Given Hydralazine HCl (Apresoline) 100 mg PO Q8 [facility] Last Admin: 09/25/16 05:26 Dose: 100 mg Hydromorphone HCl (Dilaudid) 1 mg IVP Q4H PRN PRN Reason: Pain, moderate (4-7) Last Admin: 09/25/16 08:14 Dose: 1 mg Metoclopramide HCl (Reglan) 10 mg IVP ACHS [facility] Last Admin: 09/25/16 06:30 Dose: 10 mg Nifedipine (Procardia Xl) 90 mg PO DAILY [facility] Last Admin: 09/25/16 11:29 Dose: 90 mg Pantoprazole Sodium (Protonix Inj) 40 mg IVP DAILY [facility] Rosuvastatin Calcium (Crestor) 2.5 mg PO HS [facility] Last Admin: 09/24/16 21:14 Dose: 2.5 mg Timolol Maleate (Timoptic 0.25% Ophth Soln) 1 drop OD BID [facility] Last Admin: 09/24/16 21:15 Dose: 1 drop Physical Exam - Constitutional Appears: No Acute Distress - Head Exam Head Exam: ATRAUMATIC, NORMOCEPHALIC - Eye Exam Additional comments: Sclerae anicteric - ENT Exam ENT Exam: Mucous Membranes Moist - Respiratory Exam Additional comments: Lungs clear - Cardiovascular Exam Cardiovascular Exam: REGULAR RHYTHM - GI/Abdominal Exam GI & Abdominal Exam: Soft Additional comments: Mild epigastric tenderness - Extremities Exam Additional comments: No edema Results - Vital Signs Recent Vital Signs: Last Vital Signs Temp 97.5 F L 09/25/16 09:50 Pulse 92 H 09/25/16 10:04 Resp 18 09/25/16 10:04 BP 193/101 H 09/25/16 11:35 Pulse Ox 98 09/25/16 09:50 - Labs Result Diagrams: 09/24/16 13:42 09/25/16 09:55 Labs: Laboratory Results - last 24 hr 09/24/16 09/24/16 09/25/16 19:20 22:53 05:40 Sodium Potassium Chloride Carbon Dioxide Anion Gap BUN Creatinine Est GFR ( Amer) Est GFR (Non-Af Amer) POC Glucose (mg/dL) 92 83 69 Random Glucose Calcium 09/25/16 09/25/16 09/25/16 06:06 09:55 11:08 Sodium 134 Potassium 7.4 H* Chloride 96 L Carbon Dioxide 25 Anion Gap 20 BUN 46 H Creatinine 7.2 H Est GFR ( Amer) 8 Est GFR (Non-Af Amer) 6 POC Glucose (mg/dL) 76 84 Random Glucose 101 Calcium 8.8 Assessment & Plan - Assessment and Plan (Free Text) Assessment: ESRD Hyperkalemia HTN Abdominal pain IDDM Plan: Pt received dialysis in am Will repeat BMP Monitor BP
--- NOTE | 2016-09-25 14:04 | CARD ---
APPROVED REPORT EKG Measurement Heart [id number] <Conclusion> Normal sinus rhythm Possible Left atrial enlargement Left axis deviation T wave abnormality, consider lateral ischemia Abnormal ECG
[2016-09-25 20:07] LABS: POTASSIUM 5.7 mmol/L (3.6-5.2)
[2016-09-25 20:10] LABS: CALCIUM 8.2 mg/dl (8.6-10.4)
[2016-09-25] MEDS: Rosuvastatin Calcium 2.5 mg Tab PO SCH (21:49)
--- NOTE | 2016-09-25 22:58 | CP.PCM.HP ---
History of Present Illness - History of Present Illness History of Present Illness: CC: abdominal pain 40 year old patient, with a past medical history of end stage renal disease on dialysis, hypertension, diabetes, and known gastroparesis, presents to the ED complaining of recurring severe abdominal pain for the past 2 days. Patient also complains of vomiting and unable to take any of her medications. Patient is well known in the ED for vomiting and severe abdominal pain. Patient was admitted on 09/13/16 for a EGD endoscopy, and gastric-duodenal biopsy. Patient denies fever, diarrhea, or other complaints at this time. Present on Admission - Present on Admission Any Indicators Present on Admission: No Review of Systems - Review of Systems Systems not reviewed;Unavailable: Acuity of Condition - Constitutional Constitutional: Lethargy, Malaise, Weakness - EENT Eyes: absent: As Per HPI, Blind Spots, Blurred Vision, Change in Vision, Decreased Night Vision, Diplopia, Discharge, Dry Eye, Exophthalmos, Floaters, Irritation, Itchy Eyes, Loss of Peripheral Vision, Pain, Photophobia, Requires Corrective Lenses, Sees Flashes, Spots in Vision, Tunnel Vision, Other Visual Disturbances, Loss of Vision, Other Ears: absent: As Per HPI, Decreased Hearing, Ear Discharge, Ear Pain, Tinnitus, Abnormal Hearing, Disequilibrium, Dizziness, Other Nose/Mouth/Throat: absent: As Per HPI, Epistaxis, Nasal Congestion, Nasal Discharge, Nasal Obstruction, Nasal Trauma, Nose Pain, Post Nasal Drip, Sinus Pain, Sinus Pressure, Bleeding Gums, Change in Voice, Dental Pain, Dry Mouth, Dysphagia, Halitosis, Hoarsness, Lip Swelling, Mouth Lesions, Mouth Pain, Odynophagia, Sore Throat, Throat Swelling, Tongue Swelling, Facial Pain, Neck Pain, Neck Mass, Other - Cardiovascular Cardiovascular: absent: As Per HPI, Acrocyanosis, Chest Pain, Chest Pain at Rest , Chest Pain with Activity, Claudication, Diaphoresis, Dyspnea, Dyspnea on Exertion, Edema, Irregular Heart Rhythm, Pain Radiating to Arm/Neck/Jaw, Leg Edema, Leg Ulcers, Lightheadedness, Orthopnea, Palpitations, Paroxysmal Nocturnal Dyspnea, Pedal Edema, Radiating Pain, Rapid Heart Rate, Slow Heart Rate, Syncope, Other - Respiratory Respiratory: absent: As Per HPI, Cough, Dyspnea, Hemoptysis, Dyspnea on Exertion , Wheezing, Snoring, Stridor, Pain on Inspiration, Chest Congestion, Excessive Mucous Production, Change in Mucous Color, Pain with Coughing, Other - Gastrointestinal Gastrointestinal: Abdominal Pain, Nausea. absent: As Per HPI, Belching, Bloating, Change in Bowel Habits, Change in Stool Character, Coffee Ground Emesis, Constipation, Cramping, Diarrhea, Dyspepsia, Dysphagia, Early Satiety, Excessive Flatus, Fecal Incontinence, Heartburn, Hematemesis, Hematochezia, Loose Stools, Melena, Odynophagia, Temesmus, Vomiting, Other - Genitourinary Genitourinary: absent: As Per HPI, Change in Urinary Stream, Difficulty Urinating, Dysuria, Flank Pain, Hematuria, Pyuria, Nocturia, Urinary Incontinence, Urinary Frequency, Urinary Hesitance, Urinary Urgency, Voiding Freq/Small Amts, Freq UTI, Hx Renal/Bladder Calculi, Hx /Renal Surgery, Bladder Distension, Other Past Patient History - Infectious Disease Hx of Infectious Diseases: None - Past Medical History & Family History Past Medical History?: Yes - Past Social History Smoking Status: Never Smoked - CARDIAC Hx Hypercholesterolemia: Yes Hx Hypertension: Yes - PULMONARY Hx Pneumonia: Yes - HEENT Hx HEENT Problems: Yes Hx Cataracts: Yes (09/23/14 left) - RENAL Hx Chronic Kidney Disease: Yes Date of Last Dialysis Treatment: 09/22/16 - ENDOCRINE/METABOLIC Hx Endocrine Disorders: Yes Hx Diabetes Mellitus Type 2: Yes - HEMATOLOGICAL/ONCOLOGICAL Hx Anemia: Yes - INTEGUMENTARY Hx Dermatological Problems: Yes Other/Comment: right great toe amputation - MUSCULOSKELETAL/RHEUMATOLOGICAL Hx Falls: No - GASTROINTESTINAL Hx Gastritis: Yes (diabetic gastroparesis) - GENITOURINARY/GYNECOLOGICAL Hx Genitourinary Disorders: Yes Other/Comment: renal failure - PSYCHIATRIC Hx Depression: Yes Hx Substance Use: No - SURGICAL HISTORY Hx Cholecystectomy: Yes - ANESTHESIA Hx Anesthesia: Yes Hx Anesthesia Reactions: No Hx Malignant Hyperthermia: No Has any member of the family had a problem w/ anesthesia?: No Meds Home Medications: Home Medication List Medication Instructions Recorded Confirmed Type Carvedilol [Coreg] 25 mg PO BID tab 09/28/16 Rx Metoclopramide HCl [Reglan] 10 mg PO AC #80 09/28/16 09/24/16 Rx Rosuvastatin Calcium 2.5 [Crestor] 2.5 mg PO HS tab 09/28/16 Rx Allergies/Adverse Reactions: Allergies Allergy/AdvReac Type Severity Reaction Status Date / Time ketorolac tromethamine Allergy Verified 10/02/16 06:15 [From Toradol] morphine Allergy Verified 10/02/16 06:15 tramadol Allergy Verified 10/02/16 06:15 Physical Exam - Constitutional Appears: No Acute Distress - Head Exam Head Exam: ATRAUMATIC, NORMAL INSPECTION, NORMOCEPHALIC - Eye Exam Eye Exam: EOMI, Normal appearance, PERRL Pupil Exam: NORMAL ACCOMODATION, PERRL - Respiratory Exam Respiratory Exam: Clear to Auscultation Bilateral, NORMAL BREATHING PATTERN - Cardiovascular Exam Cardiovascular Exam: REGULAR RHYTHM - GI/Abdominal Exam GI & Abdominal Exam: Tenderness Additional comments: diffuse tendernes no rebound no gaurding Results - Vital Signs Recent Vital Signs: Last Vital Signs Temp 98.7 F 09/25/16 15:28 Pulse 87 09/25/16 15:28 Resp 20 09/25/16 15:28 BP 157/82 H 09/25/16 17:27 Pulse Ox 94 L 09/25/16 15:28 - Labs Result Diagrams: 09/26/16 18:28 09/26/16 18:15 Labs: Laboratory Results - last 24 hr 09/24/16 09/24/16 09/25/16 19:20 22:53 05:40 Sodium Potassium Chloride Carbon Dioxide Anion Gap BUN Creatinine Est GFR ( Amer) Est GFR (Non-Af Amer) POC Glucose (mg/dL) 92 83 69 Random Glucose Calcium 09/25/16 09/25/16 09/25/16 06:06 09:55 11:08 Sodium 134 Potassium 7.4 H* Chloride 96 L Carbon Dioxide 25 Anion Gap 20 BUN 46 H Creatinine 7.2 H Est GFR ( Amer) 8 Est GFR (Non-Af Amer) 6 POC Glucose (mg/dL) 76 84 Random Glucose 101 Calcium 8.8 09/25/16 09/25/16 09/25/16 17:16 19:55 21:57 Sodium 134 Potassium 5.7 H Chloride 94 L Carbon Dioxide 29 Anion Gap 17 BUN 24 H Creatinine 4.4 H Est GFR ( Amer) 14 Est GFR (Non-Af Amer) 11 POC Glucose (mg/dL) 86 112 H Random Glucose 95 Calcium 8.2 L Assessment & Plan (1) Abdominal pain Assessment and Plan: Patient's blood pressure is 216/100. Plan: * EKG * Labs * Benadryl * Dilaudid * Pepcid * Protonix * Reglan * IV fluids Status: Acute (2) Diabetic gastroparesis Status: Chronic (3) ESRD on hemodialysis Status: Acute (4) Uncontrolled hypertension Assessment and Plan: Patient's blood pressure is 216/100. Plan: * EKG * Labs * Benadryl * Dilaudid * Pepcid * Protonix * Reglan * IV fluids Status: Acute
--- NOTE | 2016-09-25 23:02 | CP.PCM.PN ---
Subjective - Date & Time of Evaluation Date of Evaluation: 09/25/16 Time of Evaluation: 07:35 - Subjective Subjective: Pt seen & evaluated, still c/o abdominal pain, mild improvement since yesterday Objective - Vital Signs/Intake and Output Vital Signs (last 24 hours): Temp Pulse Resp BP Pulse Ox 98.7 F 87 20 157/82 H 94 L 09/25/16 15:28 09/25/16 15:28 09/25/16 15:28 09/25/16 17:27 09/25/16 15:28 Intake and Output: 09/25/16 09/26/16 18:59 06:59 Intake Total 420 Balance 420 - Medications Medications: Current Medications Calcium Acetate (Phoslo) 667 mg PO TIDCC [facility] Last Admin: 09/25/16 16:08 Dose: 667 mg Carvedilol (Coreg) 25 mg PO BID [facility] Last Admin: 09/25/16 17:27 Dose: 25 mg Clonidine HCl (Catapres-Tts3 0.3 Mg/24 Hr) 2 patch TD Q7D@1000 [facility] Diphenhydramine HCl (Benadryl) 25 mg IVP Q4 PRN PRN Reason: Itching / Pruritus Last Admin: 09/25/16 21:50 Dose: 25 mg Fentanyl (Duragesic) 1 patch TD Q72H [facility] Last Admin: 09/24/16 19:26 Dose: 1 patch Heparin Sodium (Porcine) (Heparin) 5,000 units SC Q8 [facility] Last Admin: 09/25/16 21:52 Dose: 5,000 units Hydralazine HCl (Apresoline) 100 mg PO Q8 [facility] Last Admin: 09/25/16 21:49 Dose: 100 mg Hydromorphone HCl (Dilaudid) 1 mg IVP Q4H PRN PRN Reason: Pain, moderate (4-7) Last Admin: 09/25/16 21:50 Dose: 1 mg Metoclopramide HCl (Reglan) 10 mg IVP ACHS [facility] Last Admin: 09/25/16 21:50 Dose: 10 mg Nifedipine (Procardia Xl) 90 mg PO DAILY [facility] Last Admin: 09/25/16 11:29 Dose: 90 mg Pantoprazole Sodium (Protonix Inj) 40 mg IVP DAILY [facility] Last Admin: 09/25/16 13:46 Dose: 40 mg Rosuvastatin Calcium (Crestor) 2.5 mg PO HS [facility] Last Admin: 09/25/16 21:49 Dose: 2.5 mg Timolol Maleate (Timoptic 0.25% Oph Soln) 1 drop OD BID [facility] Last Admin: 09/25/16 18:03 Dose: 1 drop - Labs Labs: 09/25/16 19:55 - Constitutional Appears: Well, No Acute Distress - Eye Exam Eye Exam: EOMI, Normal appearance, PERRL Pupil Exam: NORMAL ACCOMODATION, PERRL - ENT Exam ENT Exam: Mucous Membranes Moist, Normal Exam - Respiratory Exam Respiratory Exam: Clear to Ausculation Bilateral, NORMAL BREATHING PATTERN - Cardiovascular Exam Cardiovascular Exam: REGULAR RHYTHM, +S1, +S2. absent: Murmur - GI/Abdominal Exam GI & Abdominal Exam: Normal Bowel Sounds - Rectal Exam Rectal Exam: Deferred Assessment and Plan (1) Abdominal pain Status: Acute (2) Diabetic gastroparesis Status: Chronic (3) ESRD on hemodialysis Status: Acute (4) Uncontrolled hypertension Status: Acute
[2016-09-26] MEDS: DiphenhydrAMINE 50 mg/ml Inj IVP PRN ×5 (02:12→20:34)
[2016-09-26] MEDS: Timolol 0.25% Ophth SOLN OD SCH ×2 (09:33→17:54)
[2016-09-26] MEDS: NIFEdipine 90 mg ER Tab PO SCH (09:37)
--- NOTE | 2016-09-26 14:23 | CP.PCM.PN ---
Subjective - Date & Time of Evaluation Date of Evaluation: 09/26/16 Time of Evaluation: 14:20 - Subjective Subjective: patient appears to be comfortable No acute distress Less abdomen pain Physical exam Chest clear Heart no rubs Abdomen soft Extremity no edema Blood pressure noted to be improving and better control The impression and plan Patient admitted with gastroparesis where she has long history. Blood pressure better controlled on medication End stage renal disease on maintenance hemodialysis scheduled for tomorrow. Continue monitoring Patient has many evaluation in the past and many admissions Continue monitoring diabetic control Objective - Vital Signs/Intake and Output Vital Signs (last 24 hours): Temp Pulse Resp BP Pulse Ox 98 F 78 16 113/67 98 09/26/16 13:35 09/26/16 13:35 09/26/16 13:35 09/26/16 13:35 09/26/16 13:35 - Medications Medications: Current Medications Calcium Acetate (Phoslo) 667 mg PO TIDCC [facility] Last Admin: 09/26/16 12:28 Dose: 667 mg Carvedilol (Coreg) 25 mg PO BID [facility] Last Admin: 09/26/16 09:33 Dose: 25 mg Clonidine HCl (Catapres-Tts3 0.3 Mg/24 Hr) 2 patch TD Q7D@1000 [facility] Diphenhydramine HCl (Benadryl) 25 mg IVP Q4 PRN PRN Reason: Itching / Pruritus Last Admin: 09/26/16 11:23 Dose: 25 mg Fentanyl (Duragesic) 1 patch TD Q72H [facility] Last Admin: 09/24/16 19:26 Dose: 1 patch Heparin Sodium (Porcine) (Heparin) 5,000 units SC Q8 [facility] Last Admin: 09/26/16 05:44 Dose: Not Given Hydralazine HCl (Apresoline) 100 mg PO Q8 [facility] Last Admin: 09/26/16 05:44 Dose: 100 mg Hydromorphone HCl (Dilaudid) 1 mg IVP Q4H PRN PRN Reason: Pain, moderate (4-7) Last Admin: 09/26/16 11:24 Dose: 1 mg Metoclopramide HCl (Reglan) 10 mg IVP ACHS [facility] Last Admin: 09/26/16 11:24 Dose: 10 mg Nifedipine (Procardia Xl) 90 mg PO DAILY [facility] Last Admin: 09/26/16 09:37 Dose: 90 mg Pantoprazole Sodium (Protonix Inj) 40 mg IVP DAILY [facility] Last Admin: 09/26/16 09:33 Dose: 40 mg Rosuvastatin Calcium (Crestor) 2.5 mg PO HS [facility] Last Admin: 09/25/16 21:49 Dose: 2.5 mg Timolol Maleate (Timoptic 0.25% Ophth Soln) 1 drop OD BID [facility] Last Admin: 09/26/16 09:33 Dose: 1 drop - Labs Labs: 09/25/16 19:55
[2016-09-26 18:33] LABS: POTASSIUM 5.3 mmol/L (3.6-5.2)
[2016-09-26 18:34] LABS: BASO # 0.1 K/uL (0.0-0.2); BASO % 0.9 % (0.0-2.0); EOS # 0.5 K/uL (0.0-0.7); EOS % 7.9 % (0.0-4.0); HEMATOCRIT 34.9 % (34.0-47.0); LYMPH % 14.7 % (20.0-40.0); MEAN CELL VOLUME 92.9 fL (81.0-99.0); MEAN CORPUSCULAR HEMOGLOBIN 30.1 pg (27.0-31.0); MEAN CORPUSCULAR HGB CONC 32.4 g/dL (33.0-37.0); MEAN PLATELET VOLUME 8.6 fL (7.2-11.7); MONO # 0.5 K/uL (0.0-0.8); MONO % 7.9 % (0.0-10.0); RED CELL DISTRIBUTION WIDTH 16.5 % (11.5-14.5); WHITE BLOOD COUNT 6.8 K/uL (4.8-10.8)
[2016-09-26 18:36] LABS: CALCIUM 8.3 mg/dl (8.6-10.4)
[2016-09-26] MEDS: Rosuvastatin Calcium 2.5 mg Tab PO SCH (21:44)
[2016-09-27] MEDS: DiphenhydrAMINE 50 mg/ml Inj IVP PRN ×5 (00:32→22:54)
[2016-09-27] MEDS: Timolol 0.25% Ophth SOLN OD SCH ×2 (09:45→18:41)
[2016-09-27] MEDS: NIFEdipine 90 mg ER Tab PO SCH (10:10)
[2016-09-27] MEDS ORDERED: HYDROmorphone 1 mg/ml ISec SC STA (12:38)
--- NOTE | 2016-09-27 13:13 | CP.PCM.PN ---
Subjective - Date & Time of Evaluation Date of Evaluation: 09/26/16 Time of Evaluation: 12:03 - Subjective Subjective: Pt seen & evaluated, decreased nausea/vomitting , abdominal pain, she has left heel ulcer and c/o difficulty walking, she wants to walk Objective - Vital Signs/Intake and Output Vital Signs (last 24 hours): Temp Pulse Resp BP Pulse Ox 98.3 F 84 20 148/79 97 09/27/16 08:14 09/27/16 08:14 09/27/16 08:14 09/27/16 08:14 09/27/16 08:14 - Medications Medications: Current Medications Calcium Acetate (Phoslo) 667 mg PO TIDCC [facility] Last Admin: 09/27/16 08:13 Dose: 667 mg Carvedilol (Coreg) 25 mg PO BID [facility] Last Admin: 09/27/16 10:10 Dose: Not Given Clonidine HCl (Catapres-Tts3 0.3 Mg/24 Hr) 2 patch TD Q7D@1000 [facility] Diphenhydramine HCl (Benadryl) 25 mg IVP Q4 PRN PRN Reason: Itching / Pruritus Last Admin: 09/27/16 05:05 Dose: 25 mg Fentanyl (Duragesic) 1 patch TD Q72H [facility] Last Admin: 09/24/16 19:26 Dose: 1 patch Heparin Sodium (Porcine) (Heparin) 5,000 units SC Q8 [facility] Last Admin: 09/26/16 21:46 Dose: Not Given Hydralazine HCl (Apresoline) 100 mg PO Q8 [facility] Last Admin: 09/27/16 06:32 Dose: 100 mg Hydromorphone HCl (Dilaudid) 1 mg IVP Q4H PRN PRN Reason: Pain, moderate (4-7) Last Admin: 09/27/16 05:04 Dose: 1 mg Metoclopramide HCl (Reglan) 10 mg IVP ACHS [facility] Last Admin: 09/27/16 12:24 Dose: Not Given Nifedipine (Procardia Xl) 90 mg PO DAILY [facility] Last Admin: 09/27/16 10:10 Dose: Not Given Pantoprazole Sodium (Protonix Inj) 40 mg IVP DAILY [facility] Last Admin: 09/27/16 09:45 Dose: 40 mg Rosuvastatin Calcium (Crestor) 2.5 mg PO HS [facility] Last Admin: 09/26/16 21:44 Dose: 2.5 mg Timolol Maleate (Timoptic 0.25% Ophth Soln) 1 drop OD BID [facility] Last Admin: 09/27/16 09:45 Dose: 1 drop - Labs Labs: 09/26/16 18:28 09/26/16 18:15 - Constitutional Appears: No Acute Distress - Head Exam Head Exam: ATRAUMATIC, NORMAL INSPECTION, NORMOCEPHALIC - Eye Exam Eye Exam: EOMI, Normal appearance, PERRL Pupil Exam: NORMAL ACCOMODATION, PERRL - Respiratory Exam Respiratory Exam: Clear to Ausculation Bilateral, NORMAL BREATHING PATTERN - Cardiovascular Exam Cardiovascular Exam: REGULAR RHYTHM, +S1, +S2. absent: Murmur - GI/Abdominal Exam GI & Abdominal Exam: Soft, Normal Bowel Sounds. absent: Tenderness Assessment and Plan (1) Abdominal pain Status: Acute (2) Diabetic gastroparesis Status: Chronic (3) ESRD on hemodialysis Status: Acute (4) Uncontrolled hypertension Status: Acute
--- NOTE | 2016-09-27 13:50 | CP.PCM.PN ---
Subjective - Date & Time of Evaluation Date of Evaluation: 09/27/16 Time of Evaluation: 12:06 - Subjective Subjective: Pt seen and examined, pt is acce[donte in [facility] and will be discharge [facility] Objective - Vital Signs/Intake and Output Vital Signs (last 24 hours): Temp Pulse Resp BP Pulse Ox 98.3 F 84 20 148/79 97 09/27/16 08:14 09/27/16 08:14 09/27/16 08:14 09/27/16 08:14 09/27/16 08:14 - Medications Medications: Current Medications Calcium Acetate (Phoslo) 667 mg PO TIDCC [facility] Last Admin: 09/27/16 13:13 Dose: 667 mg Carvedilol (Coreg) 25 mg PO BID [facility] Last Admin: 09/27/16 10:10 Dose: Not Given Clonidine HCl (Catapres-Tts3 0.3 Mg/24 Hr) 2 patch TD Q7D@1000 [facility] Diphenhydramine HCl (Benadryl) 25 mg IVP Q4 PRN PRN Reason: Itching / Pruritus Last Admin: 09/27/16 05:05 Dose: 25 mg Fentanyl (Duragesic) 1 patch TD Q72H [facility] Last Admin: 09/24/16 19:26 Dose: 1 patch Heparin Sodium (Porcine) (Heparin) 5,000 units SC Q8 [facility] Last Admin: 09/26/16 21:46 Dose: Not Given Hydralazine HCl (Apresoline) 100 mg PO Q8 [facility] Last Admin: 09/27/16 06:32 Dose: 100 mg Hydromorphone HCl (Dilaudid) 1 mg IVP Q4H PRN PRN Reason: Pain, moderate (4-7) Last Admin: 09/27/16 05:04 Dose: 1 mg Metoclopramide HCl (Reglan) 10 mg IVP ACHS [facility] Last Admin: 09/27/16 12:24 Dose: Not Given Nifedipine (Procardia Xl) 90 mg PO DAILY [facility] Last Admin: 09/27/16 10:10 Dose: Not Given Pantoprazole Sodium (Protonix Inj) 40 mg IVP DAILY [facility] Last Admin: 09/27/16 09:45 Dose: 40 mg Rosuvastatin Calcium (Crestor) 2.5 mg PO HS [facility] Last Admin: 09/26/16 21:44 Dose: 2.5 mg Timolol Maleate (Timoptic 0.25% Ophth Soln) 1 drop OD BID [facility] Last Admin: 09/27/16 09:45 Dose: 1 drop - Labs Labs: 09/26/16 18:28 09/26/16 18:15 - Constitutional Appears: No Acute Distress - Head Exam Head Exam: ATRAUMATIC, NORMAL INSPECTION, NORMOCEPHALIC - Eye Exam Eye Exam: EOMI, Normal appearance, PERRL Pupil Exam: NORMAL ACCOMODATION, PERRL - Respiratory Exam Respiratory Exam: Clear to Ausculation Bilateral, NORMAL BREATHING PATTERN - Cardiovascular Exam Cardiovascular Exam: REGULAR RHYTHM, +S1, +S2. absent: Murmur - GI/Abdominal Exam GI & Abdominal Exam: Soft, Normal Bowel Sounds. absent: Tenderness Assessment and Plan (1) Abdominal pain Status: Acute (2) Diabetic gastroparesis Status: Chronic (3) ESRD on hemodialysis Status: Acute (4) Uncontrolled hypertension Status: Acute
--- NOTE | 2016-09-27 17:49 | CP.PCM.PN ---
Subjective - Date & Time of Evaluation Date of Evaluation: 09/27/16 Time of Evaluation: 05:30 - Subjective Subjective: Seen on dialysis Appears comfortable Objective - Vital Signs/Intake and Output Vital Signs (last 24 hours): Temp Pulse Resp BP Pulse Ox 98.3 F 83 20 139/74 96 09/27/16 14:40 09/27/16 14:40 09/27/16 14:40 09/27/16 17:10 09/27/16 14:40 Intake and Output: 09/27/16 09/27/16 06:59 18:59 Intake Total 520 Balance 520 - Medications Medications: Current Medications Calcium Acetate (Phoslo) 667 mg PO TIDCC [facility] Last Admin: 09/27/16 13:13 Dose: 667 mg Carvedilol (Coreg) 25 mg PO BID [facility] Last Admin: 09/27/16 10:10 Dose: Not Given Clonidine HCl (Catapres-Tts3 0.3 Mg/24 Hr) 2 patch TD Q7D@1000 [facility] Diphenhydramine HCl (Benadryl) 25 mg IVP Q4 PRN PRN Reason: Itching / Pruritus Last Admin: 09/27/16 05:05 Dose: 25 mg Fentanyl (Duragesic) 1 patch TD Q72H [facility] Last Admin: 09/24/16 19:26 Dose: 1 patch Heparin Sodium (Porcine) (Heparin) 5,000 units SC Q8 [facility] Last Admin: 09/27/16 14:10 Dose: Not Given Hydralazine HCl (Apresoline) 100 mg PO Q8 [facility] Last Admin: 09/27/16 14:10 Dose: Not Given Hydromorphone HCl (Dilaudid) 1 mg IVP Q4H PRN PRN Reason: Pain, moderate (4-7) Last Admin: 09/27/16 05:04 Dose: 1 mg Metoclopramide HCl (Reglan) 10 mg IVP ACHS [facility] Last Admin: 09/27/16 12:24 Dose: Not Given Nifedipine (Procardia Xl) 90 mg PO DAILY [facility] Last Admin: 09/27/16 10:10 Dose: Not Given Pantoprazole Sodium (Protonix Inj) 40 mg IVP DAILY [facility] Last Admin: 09/27/16 09:45 Dose: 40 mg Rosuvastatin Calcium (Crestor) 2.5 mg PO HS [facility] Last Admin: 09/26/16 21:44 Dose: 2.5 mg Timolol Maleate (Timoptic 0.25% Ophth Soln) 1 drop OD BID [facility] Last Admin: 09/27/16 09:45 Dose: 1 drop - Labs Labs: 09/26/16 18:28 09/26/16 18:15 - Respiratory Exam Additional comments: Lungs clear - Cardiovascular Exam Cardiovascular Exam: REGULAR RHYTHM - Extremities Exam Additional comments: No edema Assessment and Plan - Assessment and Plan (Free Text) Assessment: ESRD on HD HTN BP control is improving Abdominal pain IDDM Plan: Continue HD per schedule.Monitor K+ level
[2016-09-27] MEDS: Rosuvastatin Calcium 2.5 mg Tab PO SCH (22:01)
[2016-09-28] MEDS: DiphenhydrAMINE 50 mg/ml Inj IVP PRN ×4 (03:33→17:34)
[2016-09-28] MEDS: Timolol 0.25% Ophth SOLN OD SCH ×2 (10:08→17:46)
[2016-09-28] MEDS: NIFEdipine 90 mg ER Tab PO SCH (10:08)
[2016-09-28] MEDS ORDERED: Nitroglycerin 2% Ointment Foilpak UD TOP PRN (11:00)
--- NOTE | 2016-09-28 14:18 | CP.PCM.PN ---
Subjective - Date & Time of Evaluation Date of Evaluation: 09/28/16 Time of Evaluation: 10:25 - Subjective Subjective: Pt seen an d examined today , states abdominal pain improved, tolerating diet , no episode of vomiting today , denies any chest pain, sob, palpitations oob with PT ambulates 10 ft with walker without difficultly no sob noted upon ambulation Objective - Vital Signs/Intake and Output Vital Signs (last 24 hours): Temp Pulse Resp BP Pulse Ox 98.4 F 88 18 193/92 H 98 09/28/16 08:00 09/28/16 08:00 09/28/16 10:50 09/28/16 10:50 09/28/16 10:50 - Medications Medications: Current Medications Calcium Acetate (Phoslo) 667 mg PO TIDCC [facility] Last Admin: 09/28/16 08:26 Dose: 667 mg Carvedilol (Coreg) 25 mg PO BID [facility] Last Admin: 09/28/16 10:09 Dose: 25 mg Clonidine HCl (Catapres-Tts3 0.3 Mg/24 Hr) 2 patch TD Q7D@1000 [facility] Diphenhydramine HCl (Benadryl) 25 mg IVP Q4 PRN PRN Reason: Itching / Pruritus Last Admin: 09/28/16 08:25 Dose: 25 mg Fentanyl (Duragesic) 1 patch TD Q72H [facility] Last Admin: 09/27/16 18:41 Dose: 1 patch Heparin Sodium (Porcine) (Heparin) 5,000 units SC Q8 [facility] Last Admin: 09/28/16 06:32 Dose: Not Given Hydralazine HCl (Apresoline) 100 mg PO Q8 [facility] Last Admin: 09/28/16 06:32 Dose: 100 mg Hydromorphone HCl (Dilaudid) 1 mg IVP Q4H PRN PRN Reason: Pain, moderate (4-7) Last Admin: 09/28/16 08:25 Dose: 1 mg Hydromorphone HCl (Dilaudid) 2 mg PO Q4 PRN PRN Reason: Pain, severe (8-10) Metoclopramide HCl (Reglan) 10 mg IVP ACHS [facility] Last Admin: 09/28/16 06:32 Dose: 10 mg Nifedipine (Procardia Xl) 90 mg PO DAILY [facility] Last Admin: 09/28/16 10:08 Dose: 90 mg Nitroglycerin (Nitro-Bid 2% Oint) 1 ea TOP Q6H PRN PRN Reason: Headache Last Admin: 09/28/16 10:59 Dose: 1 ea Pantoprazole Sodium (Protonix Inj) 40 mg IVP DAILY [facility] Last Admin: 09/28/16 10:08 Dose: 40 mg Rosuvastatin Calcium (Crestor) 2.5 mg PO HS [facility] Last Admin: 09/27/16 22:01 Dose: 2.5 mg Timolol Maleate (Timoptic 0.25% Ophth Soln) 1 drop OD BID [facility] Last Admin: 09/28/16 10:08 Dose: 1 drop - Labs Labs: 09/26/16 18:28 09/26/16 18:15 Assessment and Plan - Assessment and Plan (Free Text) Assessment: A/P 40 yr old female with PMHX, ESRD ON HD , HTN, gastroperesis admitted for abdominal pain, N/V and uncontrolled BP abdominal pain improved and tolerating diet BP controlled with current medication Patient accepted at [facility] for rehab and pat in agreement D/W Dr. Gamez, stable for discharge to [facility] today and Dr. Gamez will follow the patient at [facility] Discharge plan discussed with patient , who understands and agrees with plan
[2016-09-28 16:01] VITALS: BP 144/77; RESP 20; TEMP 98.8; O2SAT 96
[2016-09-28 16:25] VITALS: PULSE 70
--- NOTE | 2016-09-28 22:55 | CP.PCM.DIS ---
Provider - Provider Date of Admission: 09/24/16 14:23 Attending physician: Sal Gamez MD Time Spent in preparation of Discharge (in minutes): 30 Diagnosis - Discharge Diagnosis (1) Abdominal pain Status: Acute (2) Diabetic gastroparesis Status: Chronic (3) ESRD on hemodialysis Status: Acute (4) Uncontrolled hypertension Status: Acute Hospital Course - Lab Results Lab Results: Most Recent Lab Values WBC 6.8 K/uL (4.8-10.8) 09/26/16 18: RBC 3.75 Mil/uL (3.80-5.20) L 09/26/16 18: Hgb 11.3 g/dL (11.0-16.0) D 09/26/16 18: Hct 34.9 % (34.0-47.0) 09/26/16 18: MCV 92.9 fL (81.0-99.0) 09/26/16 18: MCH 30.1 pg (27.0-31.0) 09/26/16 18: MCHC 32.4 g/dL (33.0-37.0) L 09/26/16 18: RDW 16.5 % (11.5-14.5) H 09/26/16 18: Plt Count 157 K/uL (130-400) 09/26/16 18: MPV 8.6 fL (7.2-11.7) 09/26/16 18: Neut % (Auto) 68.6 % (50.0-75.0) 09/26/16 18: Lymph % (Auto) 14.7 % (20.0-40.0) L 09/26/16 18: Desha % (Auto) 7.9 % (0.0-10.0) 09/26/16 18: Eos % (Auto) 7.9 % (0.0-4.0) H 09/26/16 18: Baso % (Auto) 0.9 % (0.0-2.0) 09/26/16 18: Neut # 4.6 K/uL (1.8-7.0) 09/26/16 18: Lymph # 1.0 K/uL (1.0-4.3) 09/26/16 18:28 Desha # 0.5 K/uL (0.0-0.8) 09/26/16 18:28 Eos # 0.5 K/uL (0.0-0.7) 09/26/16 18:28 Baso # 0.1 K/uL (0.0-0.2) 09/26/16 18:28 Sodium 137 mmol/L (132-148) 09/26/16 18:15 Potassium 5.3 mmol/L (3.6-5.2) H 09/26/16 18:15 Chloride 96 mmol/L (98-107) L 09/26/16 18:15 Carbon Dioxide 30 mmol/L (22-30) 09/26/16 18:15 Anion Gap 16 (10-20) 09/26/16 18:15 BUN 25 mg/dL (7-17) H 09/26/16 18:15 Creatinine 4.1 MG/DL (0.7-1.2) H 09/26/16 18:15 Est GFR ( Amer) 15 09/26/16 18:15 Est GFR (Non-Af Amer) 12 09/26/16 18:15 POC Glucose (mg/dL) 103 mg/dL (65-110) 09/28/16 16:38 Random Glucose 131 mg/dL (65-105) H 09/26/16 18:15 Calcium 8.3 mg/dl (8.6-10.4) L 09/26/16 18:15 Total Bilirubin 1.0 mg/dL (0.2-1.3) 09/24/16 13:42 AST 31 U/L (14-36) 09/24/16 13:42 ALT 31 U/L (9-52) 09/24/16 13:42 Alkaline Phosphatase 110 U/L (38-126) 09/24/16 13:42 Total Protein 9.1 g/dL (6.3-8.3) H 09/24/16 13:42 Albumin 4.9 g/dL (3.5-5.0) 09/24/16 13:42 Globulin 4.2 gm/dL (2.2-3.9) H 09/24/16 13:42 Albumin/Globulin Ratio 1.2 (1.0-2.1) 09/24/16 13:42 Lipase 253 U/L (23-300) 09/24/16 13:42 - Hospital Course Hospital Course: Pt seen an d examined today , states abdominal pain improved, tolerating diet , no episode of vomiting today , denies any chest pain, sob, palpitations oob with PT ambulates 10 ft with walker without difficultly no sob noted upon ambulation pt is stable for discharge out pateint follow up Discharge Exam - Head Exam Head Exam: ATRAUMATIC, NORMAL INSPECTION, NORMOCEPHALIC - Eye Exam Eye Exam: EOMI, Normal appearance, PERRL Pupil Exam: NORMAL ACCOMODATION, PERRL - ENT Exam ENT Exam: Mucous Membranes Moist - Respiratory Exam Respiratory Exam: Clear to PA & Lateral - Cardiovascular Exam Cardiovascular Exam: REGULAR RHYTHM, +S1, +S2 - GI/Abdominal Exam GI & Abdominal Exam: Normal Bowel Sounds Discharge Plan - Follow Up Plan Condition: IMPROVED Disposition: TRANSF TO SNF Instructions: Diabetic Gastroparesis (GEN), Renal Failure Diet (DC), Acute Abdominal Pain (GEN), Hypertension (GEN) Additional Instructions: Please call Dr. Gamez upon patient arrival to the facility continue medication as per Med. Rec. Continue HD as scheduled
--- NOTE | 2016-09-29 15:59 | CP.PCM.PN ---
Subjective - Date & Time of Evaluation Date of Evaluation: 09/28/16 Time of Evaluation: 11:30 - Subjective Subjective: Pt was seen & evaluated by me on 09/28/16. However I was unable to write the note because the computors were down. Went back to the hosp @ 2 pm but the computors were still down. Pt was complaining of abdominal pain Objective - Vital Signs/Intake and Output Vital Signs (last 24 hours): Temp Pulse Resp BP Pulse Ox 98.8 F 70 20 144/77 96 09/28/16 15:57 09/28/16 16:19 09/28/16 15:57 09/28/16 17:38 09/28/16 15:57 - Labs Labs: 09/26/16 18:28 09/26/16 18:15 - Respiratory Exam Additional comments: Lungs clear - Cardiovascular Exam Cardiovascular Exam: REGULAR RHYTHM - GI/Abdominal Exam Additional comments: Does not want abdominal exam because of pain - Extremities Exam Additional comments: No edema Assessment and Plan - Assessment and Plan (Free Text) Assessment: ESRD stable on dialysis HTN BP control is improving Abdominal pain IDDM Plan: Continue HD per schedule Monitor BP,Hb
== END 2016-09-28 20:36 | DRG 682 ==
LOC: C.ER 12:43 → C.9E 14:23 → C.5T 17:00
PROVIDERS: ADMIT Internal Medicine; ATTEND Internal Medicine
PROC: 5A1D60Z (ICD-10-PCS; principal; 2016-09-26)
DX: I12.0 Hypertensive chronic kidney disease with stage 5 chronic kidney disease or end stage renal disease (principal); N18.6 End stage renal disease; E11.22 Type 2 diabetes mellitus with diabetic chronic kidney disease; K31.84 Gastroparesis; E11.43 Type 2 diabetes mellitus with diabetic autonomic (poly)neuropathy; L97.429 Non-pressure chronic ulcer of left heel and midfoot with unspecified severity; E11.621 Type 2 diabetes mellitus with foot ulcer; Z79.4 Long term (current) use of insulin; Z99.2 Dependence on renal dialysis; E87.5 Hyperkalemia; E78.00 Pure hypercholesterolemia, unspecified; Z87.01 Personal history of pneumonia (recurrent)

== ENCOUNTER 2016-10-02 06:07 | Inpatient (IN) | payer MEDICARE, OTHER ==
[2016-10-02 06:08] VITALS: BMI 27.4
--- NOTE | 2016-10-02 06:17 | C.PDOC ---
Time Seen by Provider: 10/02/16 06:17 Chief Complaint (Nursing): Abdominal Pain Past Medical History Vital Signs: Last Vital Signs Temp 98 F 10/02/16 06:11 Pulse 81 10/02/16 06:11 Resp 14 10/02/16 06:11 BP 192/99 H 10/02/16 06:11 Pulse Ox 98 10/02/16 06:11 - Medical History PMH: Anemia, Depression, Diabetes, Gastritis (diabetic gastroparesis), HTN, Hypercholesterolemia, Pneumonia, End Stage Renal Disease (Dialysis M-W-F), Chronic Kidney Disease Surgical History: Cholecystectomy - [facility] Procedures BONE BIOPSY NEC (04/07/13) CATARAC PHACOEMULS/ASPIR (09/23/14) CONTRAST ARTERIOGRAM NEC (07/17/13) CONTRAST ARTERIOGRAM-LEG (04/07/13) DIALYSIS ARTERIOVENOSTOM (04/07/13) ESOPHAGOGASTRODUODENOSCOPY [EGD] W/CLOSED BIOPSY (09/19/13) EXCIS DEBRIDE OF WOUND, INFECT, OR BURN (07/17/13) EXCISION OF STOMACH, ENDO, DIAGN (09/13/16) EXCISION OF STOMACH, PYLORUS, ENDO, DIAGN (03/14/15) EXTRACTION OF LEFT LOWER LEG SKIN, EXTERNAL APPROACH (06/16/16) HEMODIALYSIS (01/01/15) INCIS W REM OF FORIEGN BODY OR DEV FROM SKIN & SUBCUT TISSUE (05/27/13) INDIVID PSYCHOTHERAP NEC (04/20/13) INJECT/INFUSE NEC (11/09/13) INSERT LENS AT CATAR EXT (09/23/14) INSPECTION OF UPPER INTESTINAL TRACT, ENDO (03/10/16) OCCUPATIONAL THERAPY (04/30/13) OTHER GROUP THERAPY (04/20/13) OTHER SKIN & SUBQ I D (07/17/13) PERFORMANCE OF URINARY FILTRATION, MULTIPLE (09/24/16) PERFORMANCE OF URINARY FILTRATION, SINGLE (09/02/16) PHYSICAL THERAPY NEC (04/30/13) TRANSFUSE NONAUT RED BLOOD CELLS IN PERIPH VEIN, PERC (06/10/15) ULTRASONOGRAPHY OF RIGHT AND LEFT HEART, TRANSESOPHAGEAL (06/19/15) Family History: States: Diabetes - Social History Hx Tobacco Use: No Hx Alcohol Use: No Hx Substance Use: No - Immunization History Hx Tetanus Toxoid Vaccination: Yes Hx Influenza Vaccination: Yes Hx Pneumococcal Vaccination: Yes ED Course And Treatment O2 Sat by Pulse Oximetry: 98 Disposition Counseled Patient/Family Regarding: Studies Performed, Diagnosis - Disposition Disposition Time: 06:17
--- NOTE | 2016-10-02 07:19 | C.PDOC ---
History Of Present Illness 40-year-old female, PMHx includes chronic abdominal pain, ESRD on maintenance HD , every MWF, Hypertension, IDDM with retinopathy, neuropathy,gastroparesis and a chronic heel ulcer, presents to the emergency department with complaints abdominal pain. Patient states she has been experiencing upper abdominal pain x3 days. Pain is intermittent in nature, and occasionally radiates to back. Associated symptoms include nausea, non-bloody/non-bilious vomiting, multiple episodes of non-bloody loose bowel movements (this morning), and a subjective fever. Patient states she took routine medication from alf this morning "but they didn't know." Patient has a history of multiple ED visits for same complaint. CO EXAC CHRONIC ABD PAIN X 3 DAYS. PS SIM TO PRIOR. UPPER ABD, OCC RADIATION BACK. +NV. SUBJ FEVER. 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 PS TOOK ROUTINE MEDS FROM [facility] THIS MORNING "BUT THEY DIDNT WORK". PSH [facility]NA[facility]. 09/13/16 for a EGD endoscopy, and gastric-duodenal biopsy. MULT PRIOR ER VISITS FOR SAME ESRD on maintenance HD, every MWF, HTN, IDDM with retinopathy, neuropathy, gastroparesis chronic heel ulcer EXAM CRYING BUT CONSOLABLE. HEENT MMM ABD B/L UQ TEND SOFT NO R/G REMAINDER NEG MDM ACUTE EXAC OF CHRONIC ABD PAIN. PT ADVISED OF DEPT NARCOTIC PAIN POLICY, AND AGREES W MANAGEMENT PPLAN. Time Seen by Provider: 10/02/16 06:17 Chief Complaint (Nursing): Abdominal Pain History Per: Patient History/Exam Limitations: no limitations Onset/Duration Of Symptoms: Days Current Symptoms Are (Timing): Still Present Past Medical History Reviewed: Historical Data, Nursing Documentation, Vital Signs Vital Signs: Last Vital Signs Temp 98 F 10/02/16 06:11 Pulse 81 10/02/16 06:11 Resp 14 10/02/16 06:11 BP 192/99 H 10/02/16 06:11 Pulse Ox 98 10/02/16 09:14 - Medical History PMH: Anemia, Depression, Diabetes, Gastritis (diabetic gastroparesis), HTN, Hypercholesterolemia, Pneumonia, End Stage Renal Disease (Dialysis M-W-F), Chronic Kidney Disease Surgical History: Cholecystectomy - [facility] Procedures BONE BIOPSY NEC (04/07/13) CATARAC PHACOEMULS/ASPIR (09/23/14) CONTRAST ARTERIOGRAM NEC (07/17/13) CONTRAST ARTERIOGRAM-LEG (04/07/13) DIALYSIS ARTERIOVENOSTOM (04/07/13) ESOPHAGOGASTRODUODENOSCOPY [EGD] W/CLOSED BIOPSY (09/19/13) EXCIS DEBRIDE OF WOUND, INFECT, OR BURN (07/17/13) EXCISION OF STOMACH, ENDO, DIAGN (09/13/16) EXCISION OF STOMACH, PYLORUS, ENDO, DIAGN (03/14/15) EXTRACTION OF LEFT LOWER LEG SKIN, EXTERNAL APPROACH (06/16/16) HEMODIALYSIS (01/01/15) INCIS W REM OF FORIEGN BODY OR DEV FROM SKIN & SUBCUT TISSUE (05/27/13) INDIVID PSYCHOTHERAP NEC (04/20/13) INJECT/INFUSE NEC (11/09/13) INSERT LENS AT CATAR EXT (09/23/14) INSPECTION OF UPPER INTESTINAL TRACT, ENDO (03/10/16) OCCUPATIONAL THERAPY (04/30/13) OTHER GROUP THERAPY (04/20/13) OTHER SKIN & SUBQ I D (07/17/13) PERFORMANCE OF URINARY FILTRATION, MULTIPLE (09/24/16) PERFORMANCE OF URINARY FILTRATION, SINGLE (09/02/16) PHYSICAL THERAPY NEC (04/30/13) TRANSFUSE NONAUT RED BLOOD CELLS IN PERIPH VEIN, PERC (06/10/15) ULTRASONOGRAPHY OF RIGHT AND LEFT HEART, TRANSESOPHAGEAL (06/19/15) Family History: States: No Known Family Hx, Diabetes - Social History Hx Tobacco Use: No Hx Alcohol Use: No Hx Substance Use: No - Immunization History Hx Tetanus Toxoid Vaccination: Yes Hx Influenza Vaccination: Yes Hx Pneumococcal Vaccination: Yes Review Of Systems Except As Marked, All Systems Reviewed And Found Negative. Constitutional: Positive for: Fever. Negative for: Weakness, Malaise Cardiovascular: Negative for: Chest Pain, Palpitations Gastrointestinal: Positive for: Nausea, Vomiting, Abdominal Pain, Diarrhea. Negative for: Hematochezia, Hematemesis Musculoskeletal: Positive for: Back Pain Neurological: Negative for: Weakness, Numbness, Headache, Dizziness Physical Exam - Physical Exam Appears: Non-toxic, No Acute Distress (CRYING BUT CONSOLABLE.) Skin: Warm, Dry, No Rash Eye(s): bilateral: Normal Inspection Nose: Normal Oral Mucosa: Moist Lips: Normal Appearing Neck: Normal ROM Cardiovascular: Rhythm Regular Respiratory: Normal Breath Sounds, No Accessory Muscle Use Gastrointestinal/Abdominal: Soft, Tenderness (B/L UPPER QUAD), No Guarding, No Rebound Extremity: Normal ROM Neurological/Psych: Oriented x3 ED Course And Treatment - Laboratory Results Result Diagrams: 10/02/16 08:29 10/02/16 08:29 O2 Sat by Pulse Oximetry: 98 Progress - Data Reviewed Data Reviewed: Lab, Old records - Critical Care Citical Care: Excluding Proc Time Critical Care Time: 90 minutes - Continuity of Care Discussed patient case with:: Patient, PMD Medical Decision Making Medical Decision Making: Impression: acute exacerbation of chronic abdominal pain. Patient advised of department chronic pain policy, and she is agreeable with management plan. ED OBSERVATION Date of observation admission: 10/02/16 Time of observation admission: 07:00 - Observation admission statement Patient is being placed in observation because:: ACUTE EXAC CHRONIC ABD PAIN, VOMITING - Goals of Observation Goals of observation are:: NEG ACUTE ABD, SX IMPROVE - Progress Note Progress Note: 10/02/16 09:03 APPEARS IMPROVED COMPARED TO PRIOR. VSS. PS LAST HD 09/29. NO SOB, CP. D/W DR GAMEZ WILL ADMIT. CONSULT DR WILLIAMSON FOR HD 10/02/16 09:16 D/W DR PADRON C/F DR WILLIAMSON. WILL GIVE HD ORDERS Disposition Counseled Patient/Family Regarding: Studies Performed, Diagnosis - Disposition Disposition: HOSPITALIZED Disposition Time: 09:09 Condition: SERIOUS - POA Present On Arrival: None - Clinical Impression Clinical Impression: Hyperkalemia, ESRD needing dialysis, Acute abdominal pain syndrome, Diabetic gastroparesis - Scribe Statement The provider has reviewed the documentation as recorded by the Baron Carcamo All medical record entries made by the Baron were at my direction and personally dictated by me. I have reviewed the chart and agree that the record accurately reflects my personal performance of the history, physical exam, medical decision making, and the department course for this patient. I have also personally directed, reviewed, and agree with the discharge instructions and disposition. Decision To Admit - Pt Status Changed To: Hospital Disposition Of: Observation - InPatient: Physician Admission Certification:: SEE NOTE - . Bed Request Type: Telemetry Admitting Physician: Sal Gamez Patient Diagnosis: Hyperkalemia, ESRD needing dialysis, Acute abdominal pain syndrome, Diabetic gastroparesis
[2016-10-02 08:36] LABS: BASO # 0.1 K/uL (0.0-0.2); BASO % 1.4 % (0.0-2.0); EOS # 0.6 K/uL (0.0-0.7); EOS % 6.6 % (0.0-4.0); HEMATOCRIT 31.5 % (34.0-47.0); LYMPH # 1.4 K/uL (1.0-4.3); LYMPH % 14.1 % (20.0-40.0); MEAN CELL VOLUME 92.8 fL (81.0-99.0); MEAN CORPUSCULAR HEMOGLOBIN 30.5 pg (27.0-31.0); MEAN CORPUSCULAR HGB CONC 32.9 g/dL (33.0-37.0); MEAN PLATELET VOLUME 8.9 fL (7.2-11.7); MONO # 0.5 K/uL (0.0-0.8); MONO % 5.4 % (0.0-10.0); RED CELL DISTRIBUTION WIDTH 16.4 % (11.5-14.5); WHITE BLOOD COUNT 9.8 K/uL (4.8-10.8)
[2016-10-02 08:47] LABS: CALCIUM 8.7 mg/dl (8.6-10.4)
[2016-10-02] MEDS ORDERED: Dextrose 50% SYRINGE Inj (50 ml) IVP STA (09:07)
[2016-10-02] MEDS ORDERED: (Novolin R) Insulin Human Regular 100 units/ml vial SC STA (09:07)
[2016-10-02] MEDS ORDERED: Calcium Gluconate 4.65 MEQ in Dextrose 5% In Water 100 ML IV STA (09:08)
[2016-10-02] MEDS ORDERED: HYDROmorphone 1 mg/ml ISec IVP PRN (09:11)
[2016-10-02] MEDS ORDERED: (Novolin R) Insulin Human Regular 100 units/ml vial ONE (09:19)
[2016-10-02] MEDS ORDERED: Dextrose 50% SYRINGE Inj (50 ml) ONE ×2 (09:20→16:05)
--- NOTE | 2016-10-02 11:06 | RAD ---
PROCEDURE: CHEST RADIOGRAPH, 1 VIEW portable study 08:55. HISTORY: ESRD COMPARISON: None available. FINDINGS: LUNGS: Clear. PLEURA: No pneumothorax or pleural fluid seen. CARDIOVASCULAR: Cardiomegaly, mild pulmonary vascular congestion. OSSEOUS STRUCTURES: No significant abnormalities. VISUALIZED UPPER ABDOMEN: Normal. OTHER FINDINGS: None. IMPRESSION: Mild pulmonary vascular congestion a new finding compared to the prior study.
[2016-10-02] MEDS ORDERED: (Novolog) Insulin Aspart, Recombinant 100 u/ml 10 ml vial SC SCH (11:30)
--- NOTE | 2016-10-02 12:19 | CP.PCM.CON ---
History of Present Illness - History of Present Illness History of Present Illness: 40 y/o female with ESRD on maintenance HDevery MWF ,HTN Abdominal robin ? gastroparesis, IDDM with comlications presented to ER for c/o abd pain Was noted to have K+ of 7.3 Urgent dialysis is given. Pt seen on dialysis Awake. No acute distress noted. Past Patient History - Infectious Disease Hx of Infectious Diseases: None - Past Medical History & Family History Past Medical History?: Yes - Past Social History Smoking Status: Never Smoked - CARDIAC Hx Hypercholesterolemia: Yes Hx Hypertension: Yes - PULMONARY Hx Pneumonia: Yes - HEENT Hx HEENT Problems: Yes Hx Cataracts: Yes (09/23/14 left) - RENAL Hx Chronic Kidney Disease: Yes - ENDOCRINE/METABOLIC Hx Endocrine Disorders: Yes Hx Diabetes Mellitus Type 2: Yes - HEMATOLOGICAL/ONCOLOGICAL Hx Anemia: Yes - INTEGUMENTARY Hx Dermatological Problems: Yes Other/Comment: right great toe amputation - MUSCULOSKELETAL/RHEUMATOLOGICAL Hx Falls: No - GASTROINTESTINAL Hx Gastritis: Yes (diabetic gastroparesis) - GENITOURINARY/GYNECOLOGICAL Hx Genitourinary Disorders: Yes Other/Comment: renal failure - PSYCHIATRIC Hx Depression: Yes Hx Substance Use: No - SURGICAL HISTORY Hx Cholecystectomy: Yes - ANESTHESIA Hx Anesthesia: Yes Hx Anesthesia Reactions: No Hx Malignant Hyperthermia: No Meds Allergies/Adverse Reactions: Allergies Allergy/AdvReac Type Severity Reaction Status Date / Time ketorolac tromethamine Allergy Verified 10/02/16 06:15 [From Toradol] morphine Allergy Verified 10/02/16 06:15 tramadol Allergy Verified 10/02/16 06:15 - Medications Medications: Current Medications Calcium Acetate (Phoslo) 667 mg PO TIDCC [facility] Carvedilol (Coreg) 25 mg PO BID [facility] Clonidine HCl (Catapres-Tts3 0.3 Mg/24 Hr) 2 patch TD Q7D@1000 [facility] Fentanyl (Duragesic) 1 patch TD Q72H [facility] Heparin Sodium (Porcine) (Heparin) 5,000 units SC Q8 [facility] Hydralazine HCl (Apresoline) 100 mg PO Q8 [facility] Hydromorphone HCl (Dilaudid) 0.5 mg IVP Q4H PRN PRN Reason: Pain, moderate (4-7) Insulin Aspart (Novolog) 0 unit SC ACHS [facility] PRN Reason: Protocol Metoclopramide HCl (Reglan) 10 mg PO AC [facility] Nifedipine (Procardia Xl) 90 mg PO DAILY [facility] Pantoprazole Sodium (Protonix Ec Tab) 40 mg PO DAILY [facility] Rosuvastatin Calcium (Crestor) 2.5 mg PO HS [facility] Timolol Maleate (Timoptic 0.25% Ophth Soln) 1 drop OD BID [facility] Physical Exam - Constitutional Appears: No Acute Distress - Head Exam Head Exam: ATRAUMATIC, NORMOCEPHALIC - Eye Exam Additional comments: No icterus - ENT Exam ENT Exam: Mucous Membranes Moist - Respiratory Exam Additional comments: Lungs clear - Cardiovascular Exam Cardiovascular Exam: REGULAR RHYTHM - GI/Abdominal Exam GI & Abdominal Exam: Soft Additional comments: Unable to examin properly sec. to pain - Extremities Exam Additional comments: No edema or cyanosis Results - Vital Signs Recent Vital Signs: Last Vital Signs Temp 97.4 F L 10/02/16 10:00 Pulse 74 10/02/16 10:41 Resp 16 10/02/16 10:41 BP 174/96 H 10/02/16 10:41 Pulse Ox 99 10/02/16 10:41 - Labs Result Diagrams: 10/02/16 08:29 10/02/16 08:29 Labs: Laboratory Results - last 24 hr 10/02/16 10/02/16 10/02/16 08:29 08:29 11:27 WBC 9.8 RBC 3.40 L Hgb 10.4 L Hct 31.5 L MCV 92.8 MCH 30.5 MCHC 32.9 L RDW 16.4 H Plt Count 152 MPV 8.9 Neut % (Auto) 72.5 Lymph % (Auto) 14.1 L [place] % (Auto) 5.4 Eos % (Auto) 6.6 H Baso % (Auto) 1.4 Neut # 7.1 H Lymph # 1.4 [place] # 0.5 Eos # 0.6 Baso # 0.1 Sodium 135 Potassium 7.0 H* D Chloride 92 L Carbon Dioxide 27 Anion Gap 22 H BUN 63 H Creatinine 7.3 H D Est GFR ( Amer) 8 Est GFR (Non-Af Amer) 6 POC Glucose (mg/dL) 57 L Random Glucose 69 Calcium 8.7 Assessment & Plan - Assessment and Plan (Free Text) Assessment: ESRD DD HTN Abdominal pain IDDM Plan: Dialysis is given using 1K+ bath Will monitor K+ UF goal set @ 3.5 Kg. tolerating well so far renal diet when starts eating Monitor BP
[2016-10-02] MEDS ORDERED: Dextrose 50% SYRINGE Inj (50 ml) IV STA ×2 (12:45→15:58)
[2016-10-02] MEDS ORDERED: Dextrose 5%/0.9% NS 1,000 ML IV SCH (16:00)
[2016-10-02] MEDS: Pantoprazole 40 mg EC Tab PO SCH (18:00)
[2016-10-02] MEDS: Timolol 0.25% Ophth SOLN OD SCH (18:00)
[2016-10-02] MEDS: NIFEdipine 90 mg ER Tab PO SCH (18:00)
[2016-10-02] MEDS: HYDROmorphone 0.5 mg/0.5 ml ISec IVP PRN (21:55)
[2016-10-02] MEDS: Rosuvastatin Calcium 2.5 mg Tab PO SCH (22:04)
--- NOTE | 2016-10-02 23:43 | CP.PCM.HP ---
Present on Admission - Present on Admission Any Indicators Present on Admission: No Past Patient History - Infectious Disease Hx of Infectious Diseases: None - Past Medical History & Family History Past Medical History?: Yes - Past Social History Smoking Status: Never Smoked - CARDIAC Hx Hypercholesterolemia: Yes Hx Hypertension: Yes - PULMONARY Hx Pneumonia: Yes - HEENT Hx HEENT Problems: Yes Hx Cataracts: Yes (09/23/14 left) - RENAL Hx Chronic Kidney Disease: Yes Date of Last Dialysis Treatment: 09/22/16 - ENDOCRINE/METABOLIC Hx Endocrine Disorders: Yes Hx Diabetes Mellitus Type 2: Yes - HEMATOLOGICAL/ONCOLOGICAL Hx Anemia: Yes - INTEGUMENTARY Hx Dermatological Problems: Yes Other/Comment: right great toe amputation - MUSCULOSKELETAL/RHEUMATOLOGICAL Hx Falls: Yes - GASTROINTESTINAL Hx Gastritis: Yes (diabetic gastroparesis) - GENITOURINARY/GYNECOLOGICAL Hx Genitourinary Disorders: Yes Other/Comment: renal failure - PSYCHIATRIC Hx Depression: Yes Hx Substance Use: No - SURGICAL HISTORY Hx Cholecystectomy: Yes - ANESTHESIA Hx Anesthesia: Yes Hx Anesthesia Reactions: No Hx Malignant Hyperthermia: No Meds Home Medications: Home Medication List Medication Instructions Recorded Confirmed Type Acetaminophen/Oxycodone Hydr 1 tab PO Q4H PRN #20 tab 10/05/16 Rx [Percocet 10/325 mg Tab] Allergies/Adverse Reactions: Allergies Allergy/AdvReac Type Severity Reaction Status Date / Time ketorolac tromethamine Allergy Verified 10/02/16 06:15 [From Toradol] morphine Allergy Verified 10/02/16 06:15 tramadol Allergy Verified 10/02/16 06:15 Results - Vital Signs Recent Vital Signs: Last Vital Signs Temp 97.4 F L 10/02/16 10:00 Pulse 78 10/02/16 18:23 Resp 16 10/02/16 13:00 BP 192/95 H 10/02/16 17:31 Pulse Ox 98 10/02/16 13:00 - Labs Result Diagrams: 10/02/16 08:29 10/04/16 14:25 Labs: Laboratory Results - last 24 hr 10/02/16 10/02/16 10/02/16 08:29 08:29 11:27 WBC 9.8 RBC 3.40 L Hgb 10.4 L Hct 31.5 L MCV 92.8 MCH 30.5 MCHC 32.9 L RDW 16.4 H Plt Count 152 MPV 8.9 Neut % (Auto) 72.5 Lymph % (Auto) 14.1 L [place] % (Auto) 5.4 Eos % (Auto) 6.6 H Baso % (Auto) 1.4 Neut # 7.1 H Lymph # 1.4 [place] # 0.5 Eos # 0.6 Baso # 0.1 Sodium 135 Potassium 7.0 H* D Chloride 92 L Carbon Dioxide 27 Anion Gap 22 H BUN 63 H Creatinine 7.3 H D Est GFR ( Amer) 8 Est GFR (Non-Af Amer) 6 POC Glucose (mg/dL) 57 L Random Glucose 69 Calcium 8.7 10/02/16 10/02/16 10/02/16 12:34 12:59 19:35 WBC RBC Hgb Hct MCV MCH MCHC RDW Plt Count MPV Neut % (Auto) Lymph % (Auto) [place] % (Auto) Eos % (Auto) Baso % (Auto) Neut # Lymph # [place] # Eos # Baso # Sodium Potassium Chloride Carbon Dioxide Anion Gap BUN Creatinine Est GFR ( Amer) Est GFR (Non-Af Amer) POC Glucose (mg/dL) 50 L 30 L* 181 H Random Glucose Calcium 10/02/16 10/02/16 20:50 23:24 WBC RBC Hgb Hct MCV MCH MCHC RDW Plt Count MPV Neut % (Auto) Lymph % (Auto) [place] % (Auto) Eos % (Auto) Baso % (Auto) Neut # Lymph # [place] # Eos # Baso # Sodium Potassium Chloride Carbon Dioxide Anion Gap BUN Creatinine Est GFR ( Amer) Est GFR (Non-Af Amer) POC Glucose (mg/dL) 229 H 134 H Random Glucose Calcium
[2016-10-03] MEDS: HYDROmorphone 0.5 mg/0.5 ml ISec IVP PRN ×5 (03:19→21:11)
[2016-10-03] MEDS ORDERED: DiphenhydrAMINE 50 mg/ml Inj IVP ONE (09:00)
[2016-10-03] MEDS: Pantoprazole 40 mg EC Tab PO SCH (10:15)
[2016-10-03] MEDS: NIFEdipine 90 mg ER Tab PO SCH (10:15)
[2016-10-03] MEDS: Timolol 0.25% Ophth SOLN OD SCH ×2 (10:27→17:13)
--- NOTE | 2016-10-03 11:37 | CP.PCM.PN ---
Subjective - Date & Time of Evaluation Date of Evaluation: 10/03/16 Time of Evaluation: 11:33 - Subjective Subjective: c/o nausea and diarrhea no vomiting Objective - Vital Signs/Intake and Output Vital Signs (last 24 hours): Temp Pulse Resp BP Pulse Ox 98 F 77 20 183/80 H 96 10/03/16 07:54 10/03/16 07:54 10/03/16 07:54 10/03/16 10:15 10/03/16 07:54 - Medications Medications: Current Medications Calcium Acetate (Phoslo) 667 mg PO [facility]CC [facility] Last Admin: 10/03/16 08:20 Dose: 667 mg Carvedilol (Coreg) 25 mg PO BID [facility] Last Admin: 10/03/16 10:15 Dose: 25 mg Clonidine HCl (Catapres-Tts3 0.3 Mg/24 Hr) 2 patch TD Q7D@1000 [facility] Last Admin: 10/02/16 17:59 Dose: Not Given Diphenhydramine HCl (Benadryl) 25 mg IVP Q6H PRN PRN Reason: Nausea/Vomiting Fentanyl (Duragesic) 1 patch TD Q72H [facility] Last Admin: 10/02/16 17:30 Dose: 1 patch Heparin Sodium (Porcine) (Heparin) 5,000 units SC Q8 [facility] Last Admin: 10/03/16 05:57 Dose: 5,000 units Hydralazine HCl (Apresoline) 100 mg PO Q8 [facility] Last Admin: 10/03/16 05:57 Dose: 100 mg Hydromorphone HCl (Dilaudid) 0.5 mg IVP Q4H PRN PRN Reason: Pain, moderate (4-7) Last Admin: 10/03/16 08:20 Dose: 0.5 mg Metoclopramide HCl (Reglan) 10 mg IVP ACTID [facility] Last Admin: 10/03/16 08:45 Dose: Not Given Nifedipine (Procardia Xl) 90 mg PO DAILY [facility] Last Admin: 10/03/16 10:15 Dose: 90 mg Pantoprazole Sodium (Protonix Ec Tab) 40 mg PO DAILY [facility] Last Admin: 10/03/16 10:15 Dose: 40 mg Rosuvastatin Calcium (Crestor) 2.5 mg PO HS [facility] Last Admin: 10/02/16 22:04 Dose: 2.5 mg Timolol Maleate (Timoptic 0.25% Ophth Soln) 1 drop OD BID [facility] Last Admin: 10/03/16 10:27 Dose: 1 drop - Labs Labs: 10/02/16 08:29 10/02/16 08:29 - Constitutional Appears: No Acute Distress - ENT Exam ENT Exam: Mucous Membranes Moist - Respiratory Exam Respiratory Exam: NORMAL BREATHING PATTERN. absent: Chest Wall Tenderness, Rales - Cardiovascular Exam Cardiovascular Exam: absent: JVD, Rubs - GI/Abdominal Exam GI & Abdominal Exam: Soft, Normal Bowel Sounds - Back Exam Back Exam: absent: CVA tenderness (L) - Neurological Exam Neurological Exam: Alert Assessment and Plan (1) CKD (chronic kidney disease) requiring chronic dialysis Assessment & Plan: pt. completed HD yesterday tolerate well waiting to repeat K today continue RX as per primary team will do extra HD taday if needed ,if K still high Status: Chronic (2) Diabetic gastroparesis Status: Chronic
[2016-10-03] MEDS: DiphenhydrAMINE 50 mg/ml Inj IVP PRN ×2 (17:10→22:12)
[2016-10-03 19:51] LABS: POTASSIUM 5.6 mmol/L (3.6-5.2)
[2016-10-03 19:54] LABS: CALCIUM 8.5 mg/dl (8.6-10.4)
[2016-10-03] MEDS ORDERED: Sod Polystyrene Sulf 15 gm/60 ml Oral Susp PO STA (20:20)
[2016-10-03] MEDS ORDERED: Bismuth Subsalicylate 262 mg Chew Tab PO PRN (20:26)
[2016-10-03] MEDS: Rosuvastatin Calcium 2.5 mg Tab PO SCH (21:11)
--- NOTE | 2016-10-03 22:52 | CP.PCM.PN ---
Subjective - Date & Time of Evaluation Date of Evaluation: 10/03/16 Time of Evaluation: 07:42 - Subjective Subjective: Pt is feeling better, s/p HD, potasium is down to 5.4 and order kayxelate Objective - Vital Signs/Intake and Output Vital Signs (last 24 hours): Temp Pulse Resp BP Pulse Ox 98.4 F 82 20 146/84 96 10/03/16 15:15 10/03/16 16:00 10/03/16 15:15 10/03/16 21:19 10/03/16 15:15 Intake and Output: 10/03/16 10/04/16 18:59 06:59 Intake Total 480 Balance 480 - Medications Medications: Current Medications Bismuth Subsalicylate (Pepto Bismol) 262 mg PO Q4 PRN PRN Reason: Diarrhea Calcium Acetate (Phoslo) 667 mg PO TIDCC [facility] Last Admin: 10/03/16 17:09 Dose: 667 mg Carvedilol (Coreg) 25 mg PO BID [facility] Last Admin: 10/03/16 17:09 Dose: 25 mg Clonidine HCl (Catapres-Tts3 0.3 Mg/24 Hr) 2 patch TD Q7D@1000 [facility] Last Admin: 10/02/16 17:59 Dose: Not Given Diphenhydramine HCl (Benadryl) 25 mg IVP Q6H PRN PRN Reason: Nausea/Vomiting Last Admin: 10/03/16 22:12 Dose: 25 mg Fentanyl (Duragesic) 1 patch TD Q72H [facility] Last Admin: 10/02/16 17:30 Dose: 1 patch Heparin Sodium (Porcine) (Heparin) 5,000 units SC Q8 [facility] Last Admin: 10/03/16 21:11 Dose: 5,000 units Hydralazine HCl (Apresoline) 100 mg PO Q8 [facility] Last Admin: 10/03/16 21:11 Dose: 100 mg Hydromorphone HCl (Dilaudid) 0.5 mg IVP Q4H PRN PRN Reason: Pain, moderate (4-7) Last Admin: 10/03/16 21:11 Dose: 0.5 mg Metoclopramide HCl (Reglan) 10 mg IVP ACTID [facility] Last Admin: 10/03/16 17:09 Dose: 10 mg Nifedipine (Procardia Xl) 90 mg PO DAILY [facility] Last Admin: 10/03/16 10:15 Dose: 90 mg Pantoprazole Sodium (Protonix Ec Tab) 40 mg PO DAILY [facility] Last Admin: 10/03/16 10:15 Dose: 40 mg Rosuvastatin Calcium (Crestor) 2.5 mg PO HS [facility] Last Admin: 10/03/16 21:11 Dose: 2.5 mg Timolol Maleate (Timoptic 0.25% Ophth Soln) 1 drop OD BID [facility] Last Admin: 10/03/16 17:13 Dose: 1 drop - Labs Labs: 10/02/16 08:29 10/03/16 19:39 - Constitutional Appears: No Acute Distress - Head Exam Head Exam: ATRAUMATIC, NORMAL INSPECTION, NORMOCEPHALIC - Eye Exam Eye Exam: EOMI, Normal appearance, PERRL Pupil Exam: NORMAL ACCOMODATION, PERRL - ENT Exam ENT Exam: Mucous Membranes Moist, Normal Exam - Respiratory Exam Respiratory Exam: Clear to Ausculation Bilateral, NORMAL BREATHING PATTERN - Cardiovascular Exam Cardiovascular Exam: REGULAR RHYTHM, +S1, +S2. absent: Murmur Assessment and Plan (1) ESRD (end stage renal disease) Status: Acute (2) Abdominal pain Status: Acute (3) Bronchitis Status: Acute (4) Chronic ulcer of left foot Status: Acute
[2016-10-04] MEDS: HYDROmorphone 0.5 mg/0.5 ml ISec IVP PRN ×5 (01:51→22:58)
[2016-10-04] MEDS: DiphenhydrAMINE 50 mg/ml Inj IVP PRN ×3 (06:17→22:58)
[2016-10-04] MEDS: Timolol 0.25% Ophth SOLN OD SCH ×2 (10:03→18:55)
[2016-10-04] MEDS: Pantoprazole 40 mg EC Tab PO SCH (10:04)
[2016-10-04] MEDS: NIFEdipine 90 mg ER Tab PO SCH ×2 (10:04→11:46)
[2016-10-04 10:33] LABS: CALCIUM 8.3 mg/dl (8.6-10.4)
[2016-10-04 10:39] LABS: POTASSIUM 6.2 mmol/L (3.6-5.2)
[2016-10-04 14:37] LABS: POTASSIUM 3.5 mmol/L (3.6-5.2)
[2016-10-04 14:40] LABS: CALCIUM 8.3 mg/dl (8.6-10.4)
--- NOTE | 2016-10-04 16:16 | CP.PCM.PN ---
Subjective - Date & Time of Evaluation Date of Evaluation: 10/04/16 Time of Evaluation: 04:00 - Subjective Subjective: C/o abdominal pain. Objective - Vital Signs/Intake and Output Vital Signs (last 24 hours): Temp Pulse Resp BP Pulse Ox 98.6 F 80 16 181/90 H 100 10/04/16 09:45 10/04/16 09:35 10/04/16 09:45 10/04/16 12:45 10/04/16 09:45 - Medications Medications: Current Medications Bismuth Subsalicylate (Pepto Bismol) 262 mg PO Q4 PRN PRN Reason: Diarrhea Calcium Acetate (Phoslo) 667 mg PO TIDCC [facility] Last Admin: 10/04/16 12:50 Dose: Not Given Carvedilol (Coreg) 25 mg PO BID [facility] Last Admin: 10/04/16 11:46 Dose: 25 mg Clonidine HCl (Catapres-Tts3 0.3 Mg/24 Hr) 2 patch TD Q7D@1000 [facility] Last Admin: 10/02/16 17:59 Dose: Not Given Diphenhydramine HCl (Benadryl) 25 mg IVP Q6H PRN PRN Reason: Nausea/Vomiting Last Admin: 10/04/16 14:01 Dose: 25 mg Fentanyl (Duragesic) 1 patch TD Q72H [facility] Last Admin: 10/02/16 17:30 Dose: 1 patch Heparin Sodium (Porcine) (Heparin) 5,000 units SC Q8 [facility] Last Admin: 10/04/16 13:48 Dose: Not Given Hydralazine HCl (Apresoline) 100 mg PO Q8 [facility] Last Admin: 10/04/16 14:01 Dose: 100 mg Hydromorphone HCl (Dilaudid) 0.5 mg IVP Q4H PRN PRN Reason: Pain, moderate (4-7) Last Admin: 10/04/16 14:01 Dose: 0.5 mg Metoclopramide HCl (Reglan) 10 mg IVP ACTID [facility] Last Admin: 10/04/16 12:50 Dose: Not Given Nifedipine (Procardia Xl) 90 mg PO DAILY [facility] Last Admin: 10/04/16 11:46 Dose: 90 mg Pantoprazole Sodium (Protonix Ec Tab) 40 mg PO DAILY [facility] Last Admin: 10/04/16 10:04 Dose: Not Given Rosuvastatin Calcium (Crestor) 2.5 mg PO HS [facility] Last Admin: 10/03/16 21:11 Dose: 2.5 mg Timolol Maleate (Timoptic 0.25% Oph Soln) 1 drop OD BID [facility] Last Admin: 10/04/16 10:03 Dose: Not Given - Constitutional Appears: No Acute Distress - Respiratory Exam Additional comments: Lungs clear - Cardiovascular Exam Cardiovascular Exam: REGULAR RHYTHM - Extremities Exam Additional comments: No edema Assessment and Plan - Assessment and Plan (Free Text) Assessment: ESRD on maintenance HD Hyperkalemia corrected HTN IDDM Abd pain Plan: Dialysis was tolerated well today UF 3.5 Kg Monitor BP
[2016-10-04] MEDS: Rosuvastatin Calcium 2.5 mg Tab PO SCH (22:58)
[2016-10-05 02:17] VITALS: RESP 20
[2016-10-05] MEDS: HYDROmorphone 0.5 mg/0.5 ml ISec IVP PRN ×3 (04:18→13:05)
[2016-10-05] MEDS: DiphenhydrAMINE 50 mg/ml Inj IVP PRN ×2 (04:18→13:05)
[2016-10-05] MEDS: Timolol 0.25% Ophth SOLN OD SCH ×2 (10:18→17:32)
[2016-10-05] MEDS: NIFEdipine 90 mg ER Tab PO SCH (10:18)
[2016-10-05] MEDS: Pantoprazole 40 mg EC Tab PO SCH (10:18)
--- NOTE | 2016-10-05 14:05 | CP.PCM.PN ---
Subjective - Date & Time of Evaluation Date of Evaluation: 10/04/16 Time of Evaluation: 21:40 - Subjective Subjective: Pt B.P is fluctuating, pt has no nausea, vomitting Objective - Vital Signs/Intake and Output Vital Signs (last 24 hours): Temp Pulse Resp BP Pulse Ox 98.3 F 77 20 145/83 98 10/05/16 08:01 10/05/16 08:01 10/05/16 08:01 10/05/16 10:26 10/05/16 08:01 - Medications Medications: Current Medications Bismuth Subsalicylate (Pepto Bismol) 262 mg PO Q4 PRN PRN Reason: Diarrhea Calcium Acetate (Phoslo) 667 mg PO TIDCC [facility] Last Admin: 10/05/16 13:05 Dose: 667 mg Carvedilol (Coreg) 25 mg PO BID [facility] Last Admin: 10/05/16 10:26 Dose: 25 mg Clonidine HCl (Catapres-Tts3 0.3 Mg/24 Hr) 2 patch TD Q7D@1000 [facility] Last Admin: 10/02/16 17:59 Dose: Not Given Diphenhydramine HCl (Benadryl) 25 mg IVP Q6H PRN PRN Reason: Nausea/Vomiting Last Admin: 10/05/16 13:05 Dose: 25 mg Fentanyl (Duragesic) 1 patch TD Q72H [facility] Last Admin: 10/05/16 10:25 Dose: 1 patch Heparin Sodium (Porcine) (Heparin) 5,000 units SC Q8 [facility] Last Admin: 10/05/16 13:06 Dose: Not Given Hydralazine HCl (Apresoline) 100 mg PO Q8 [facility] Last Admin: 10/05/16 13:05 Dose: 100 mg Hydromorphone HCl (Dilaudid) 0.5 mg IVP Q4H PRN PRN Reason: Pain, moderate (4-7) Last Admin: 10/05/16 13:05 Dose: 0.5 mg Metoclopramide HCl (Reglan) 10 mg IVP ACTID [facility] Last Admin: 10/05/16 13:05 Dose: 10 mg Nifedipine (Procardia Xl) 90 mg PO DAILY [facility] Last Admin: 10/05/16 10:18 Dose: 90 mg Pantoprazole Sodium (Protonix Ec Tab) 40 mg PO DAILY [facility] Last Admin: 10/05/16 10:18 Dose: 40 mg Rosuvastatin Calcium (Crestor) 2.5 mg PO HS [facility] Last Admin: 10/04/16 22:58 Dose: 2.5 mg Timolol Maleate (Timoptic 0.25% Ophth Soln) 1 drop OD BID [facility] Last Admin: 10/05/16 10:18 Dose: 1 drop - Constitutional Appears: No Acute Distress - Head Exam Head Exam: ATRAUMATIC, NORMAL INSPECTION, NORMOCEPHALIC - Eye Exam Eye Exam: EOMI, Normal appearance, PERRL Pupil Exam: NORMAL ACCOMODATION, PERRL - Respiratory Exam Respiratory Exam: Clear to Ausculation Bilateral, NORMAL BREATHING PATTERN - Cardiovascular Exam Cardiovascular Exam: REGULAR RHYTHM, +S1, +S2. absent: Murmur - GI/Abdominal Exam GI & Abdominal Exam: Soft, Normal Bowel Sounds. absent: Tenderness Assessment and Plan (1) Uncontrolled hypertension Status: Acute (2) CKD (chronic kidney disease) requiring chronic dialysis Status: Chronic (3) DM2 (diabetes mellitus, type 2) Status: Chronic (4) Diabetic gastroparesis Status: Chronic
--- NOTE | 2016-10-05 14:36 | CP.PCM.PN ---
Subjective - Date & Time of Evaluation Date of Evaluation: 10/05/16 Time of Evaluation: 01:30 - Subjective Subjective: Comfortable in bed Objective - Vital Signs/Intake and Output Vital Signs (last 24 hours): Temp Pulse Resp BP Pulse Ox 98.3 F 77 20 145/83 98 10/05/16 08:01 10/05/16 08:01 10/05/16 08:01 10/05/16 10:26 10/05/16 08:01 - Medications Medications: Current Medications Bismuth Subsalicylate (Pepto Bismol) 262 mg PO Q4 PRN PRN Reason: Diarrhea Calcium Acetate (Phoslo) 667 mg PO TIDCC [facility] Last Admin: 10/05/16 13:05 Dose: 667 mg Carvedilol (Coreg) 25 mg PO BID [facility] Last Admin: 10/05/16 10:26 Dose: 25 mg Clonidine HCl (Catapres-Tts3 0.3 Mg/24 Hr) 2 patch TD Q7D@1000 [facility] Last Admin: 10/02/16 17:59 Dose: Not Given Diphenhydramine HCl (Benadryl) 25 mg IVP Q6H PRN PRN Reason: Nausea/Vomiting Last Admin: 10/05/16 13:05 Dose: 25 mg Fentanyl (Duragesic) 1 patch TD Q72H [facility] Last Admin: 10/05/16 10:25 Dose: 1 patch Heparin Sodium (Porcine) (Heparin) 5,000 units SC Q8 [facility] Last Admin: 10/05/16 13:06 Dose: Not Given Hydralazine HCl (Apresoline) 100 mg PO Q8 [facility] Last Admin: 10/05/16 13:05 Dose: 100 mg Hydromorphone HCl (Dilaudid) 0.5 mg IVP Q4H PRN PRN Reason: Pain, moderate (4-7) Last Admin: 10/05/16 13:05 Dose: 0.5 mg Metoclopramide HCl (Reglan) 10 mg IVP ACTID [facility] Last Admin: 10/05/16 13:05 Dose: 10 mg Nifedipine (Procardia Xl) 90 mg PO DAILY [facility] Last Admin: 10/05/16 10:18 Dose: 90 mg Pantoprazole Sodium (Protonix Ec Tab) 40 mg PO DAILY [facility] Last Admin: 10/05/16 10:18 Dose: 40 mg Rosuvastatin Calcium (Crestor) 2.5 mg PO HS [facility] Last Admin: 10/04/16 22:58 Dose: 2.5 mg Timolol Maleate (Timoptic 0.25% Oph Soln) 1 drop OD BID [facility] Last Admin: 10/05/16 10:18 Dose: 1 drop - Respiratory Exam Additional comments: Lungs clear - Cardiovascular Exam Cardiovascular Exam: REGULAR RHYTHM - Extremities Exam Additional comments: No edema Assessment and Plan - Assessment and Plan (Free Text) Assessment: ESRD HTN Abdominal pain Iddm Plan: For dialysis tomorrow. Stable on dialysis
[2016-10-05 15:33] VITALS: PULSE 79; TEMP 99.2; O2SAT 95
--- NOTE | 2016-10-05 17:26 | CP.PCM.PN ---
Subjective - Date & Time of Evaluation Date of Evaluation: 10/05/16 Time of Evaluation: 11:00 - Subjective Subjective: Pt seen and examined today, states abdominal pain and vomiting improved, tolerating diet , no further diarrhea reported Bp - stable Pt preferred to go home with home care and home PT Objective - Vital Signs/Intake and Output Vital Signs (last 24 hours): Temp Pulse Resp BP Pulse Ox 99.2 F 79 20 148/77 95 10/05/16 15:32 10/05/16 15:32 10/05/16 15:32 10/05/16 15:32 10/05/16 15:32 - Medications Medications: Current Medications Bismuth Subsalicylate (Pepto Bismol) 262 mg PO Q4 PRN PRN Reason: Diarrhea Calcium Acetate (Phoslo) 667 mg PO TIDCC [facility] Last Admin: 10/05/16 13:05 Dose: 667 mg Carvedilol (Coreg) 25 mg PO BID [facility] Last Admin: 10/05/16 10:26 Dose: 25 mg Clonidine HCl (Catapres-Tts3 0.3 Mg/24 Hr) 2 patch TD Q7D@1000 [facility] Last Admin: 10/02/16 17:59 Dose: Not Given Diphenhydramine HCl (Benadryl) 25 mg IVP Q6H PRN PRN Reason: Nausea/Vomiting Last Admin: 10/05/16 13:05 Dose: 25 mg Fentanyl (Duragesic) 1 patch TD Q72H [facility] Last Admin: 10/05/16 10:25 Dose: 1 patch Heparin Sodium (Porcine) (Heparin) 5,000 units SC Q8 [facility] Last Admin: 10/05/16 13:06 Dose: Not Given Hydralazine HCl (Apresoline) 100 mg PO Q8 [facility] Last Admin: 10/05/16 13:05 Dose: 100 mg Hydromorphone HCl (Dilaudid) 0.5 mg IVP Q4H PRN PRN Reason: Pain, moderate (4-7) Last Admin: 10/05/16 13:05 Dose: 0.5 mg Metoclopramide HCl (Reglan) 10 mg IVP ACTID [facility] Last Admin: 10/05/16 13:05 Dose: 10 mg Nifedipine (Procardia Xl) 90 mg PO DAILY [facility] Last Admin: 06/01/17 10:18 Dose: 90 mg Pantoprazole Sodium (Protonix Ec Tab) 40 mg PO DAILY [facility] Last Admin: 10/05/16 10:18 Dose: 40 mg Rosuvastatin Calcium (Crestor) 2.5 mg PO HS [facility] Last Admin: 10/04/16 22:58 Dose: 2.5 mg Timolol Maleate (Timoptic 0.25% Ophth Soln) 1 drop OD BID [facility] Last Admin: 10/05/16 10:18 Dose: 1 drop - Constitutional Appears: Well, No Acute Distress - Respiratory Exam Respiratory Exam: NORMAL BREATHING PATTERN - Cardiovascular Exam Cardiovascular Exam: REGULAR RHYTHM - GI/Abdominal Exam GI & Abdominal Exam: Soft, Normal Bowel Sounds Assessment and Plan - Assessment and Plan (Free Text) Assessment: A/P 40 yr old female with PMHX of ESRD on HD gastroperesis , HTN , admitted from rehab with severe abdominal pain x 3 days associated with nausea, non-bloody/ non-bilious vomiting, multiple episodes of non-bloody loose bowel movements Bp - controlled stool c-dif - negative Discharge plan discussed with patient , despot want to returns to rehab , prefer to go home with home custodial care service always contacted by CM and will receive service in 10 days to 2 weeks pt aware D/W Dr. Gamez, stable for discharge home today and f/u with [facility] office in 1 week and continue HD as scheduled discharge plan discussed with patient VNA service arranged by CM Pt has hx of chroninc back and admitted with acute abd pain contolled with pain medication. pt will be discharged home with 5 day of percocet for pain and patient will follow up with Dr. Gamez office .
[2016-10-05 17:37] VITALS: BP 135/71
--- NOTE | 2016-10-05 23:16 | CP.PCM.DIS ---
Provider - Provider Date of Admission: 10/04/16 15:39 Attending physician: Sal Gamez MD Time Spent in preparation of Discharge (in minutes): 55 Hospital Course - Lab Results Lab Results: Most Recent Lab Values WBC 9.8 K/uL (4.8-10.8) 10/02/16 08: RBC 3.40 Mil/uL (3.80-5.20) L 10/02/16 08: Hgb 10.4 g/dL (11.0-16.0) L 10/02/16 08: Hct 31.5 % (34.0-47.0) L 10/02/16 08: MCV 92.8 fL (81.0-99.0) 10/02/16 08: MCH 30.5 pg (27.0-31.0) 10/02/16 08: MCHC 32.9 g/dL (33.0-37.0) L 10/02/16 08: RDW 16.4 % (11.5-14.5) H 10/02/16 08: Plt Count 152 K/uL (130-400) 10/02/16 08: MPV 8.9 fL (7.2-11.7) 10/02/16 08: Neut % (Auto) 72.5 % (50.0-75.0) 10/02/16 08: Lymph % (Auto) 14.1 % (20.0-40.0) L 10/02/16 08: [place] % (Auto) 5.4 % (0.0-10.0) 10/02/16 08: Eos % (Auto) 6.6 % (0.0-4.0) H 10/02/16 08: Baso % (Auto) 1.4 % (0.0-2.0) 10/02/16 08: Neut # 7.1 K/uL (1.8-7.0) H 10/02/16 08: Lymph # 1.4 K/uL (1.0-4.3) 10/02/16 08: [place] # 0.5 K/uL (0.0-0.8) 10/02/16 08:29 Eos # 0.6 K/uL (0.0-0.7) 10/02/16 08:29 Baso # 0.1 K/uL (0.0-0.2) 10/02/16 08:29 Sodium 138 mmol/L (132-148) 10/04/16 14:25 Potassium 3.5 mmol/L (3.6-5.2) L 10/04/16 14:25 Chloride 94 mmol/L (98-107) L 10/04/16 14:25 Carbon Dioxide 33 mmol/L (22-30) H 10/04/16 14:25 Anion Gap 15 (10-20) 10/04/16 14:25 BUN 19 mg/dL (7-17) H 10/04/16 14:25 Creatinine 2.6 MG/DL (0.7-1.2) H 10/04/16 14:25 Est GFR ( Amer) 25 10/04/16 14:25 Est GFR (Non-Af Amer) 21 10/04/16 14:25 POC Glucose (mg/dL) 103 mg/dL (65-110) 10/05/16 16:25 Random Glucose 112 mg/dL (65-105) H 10/04/16 14:25 Calcium 8.3 mg/dl (8.6-10.4) L 10/04/16 14:25 C. difficile Ag & Toxin Negative (NEGATIVE) 10/03/16 10:29 - Hospital Course Hospital Course: Pt seen and examined today, states abdominal pain and vomiting improved, tolerating diet , no further diarrhea reported Bp - stable Pt preferred to go home with home care and home PT Discharge Exam - Head Exam Head Exam: ATRAUMATIC, NORMOCEPHALIC - Eye Exam Eye Exam: EOMI, Normal appearance, PERRL Pupil Exam: NORMAL ACCOMODATION, PERRL - ENT Exam ENT Exam: Mucous Membranes Moist - Respiratory Exam Respiratory Exam: Clear to PA & Lateral, NORMAL BREATHING PATTERN - Cardiovascular Exam Cardiovascular Exam: REGULAR RHYTHM, +S1, +S2 - GI/Abdominal Exam GI & Abdominal Exam: Normal Bowel Sounds - Rectal Exam Rectal Exam: Deferred Discharge Plan - Follow Up Plan Condition: SERIOUS Disposition: HOME/ ROUTINE Instructions: Diabetic Gastroparesis (DC), Dialysis Diet (DC), End Stage Kidney Disease (DC) Additional Instructions: continue medication as per Med. Rec. continue HD as scheduled VNA service for home care and Home PT CALL [facility] - [phone]
== END 2016-10-05 19:43 | disposition home or self-care (01) | DRG 73 ==
LOC: C.ER 06:07 → C.9OBSV 07:00 → C.9E 09:19 → C.5T 10:28 → OBSVTOIN 10-04 15:39
PROVIDERS: ADMIT Internal Medicine; ATTEND Internal Medicine
PROC: 5A1D00Z (ICD-10-PCS; principal; 2016-10-04)
DX: E10.43 Type 1 diabetes mellitus with diabetic autonomic (poly)neuropathy (principal); N18.6 End stage renal disease; I12.0 Hypertensive chronic kidney disease with stage 5 chronic kidney disease or end stage renal disease; E10.22 Type 1 diabetes mellitus with diabetic chronic kidney disease; L97.409 Non-pressure chronic ulcer of unspecified heel and midfoot with unspecified severity; E10.621 Type 1 diabetes mellitus with foot ulcer; K31.84 Gastroparesis; Z99.2 Dependence on renal dialysis; E78.00 Pure hypercholesterolemia, unspecified; E87.6 Hypokalemia

== ENCOUNTER 2016-10-07 09:53 | Inpatient (IN) | payer MEDICARE, OTHER ==
[2016-10-07 09:53] VITALS: BMI 27.4
--- NOTE | 2016-10-07 10:51 | C.PDOC ---
History Of Present Illness 40-year-old female, PMHx includes Anemia, Depression, Diabetes, Gastritis, Hypertension, Hypercholesterolemia, Pneumonia, End Stage Renal Disease ( Dialysis M-W-F), presents to the emergency department with complaints of right- lower back pain since 10/04, that is worse since yesterday. Patient discharged 10/05 for acute exacerbation of chronic abdominal pain. Patient states "I was never picked up yesterday for mu HD." Last HD on 10/04. Denies shortness of breath or chest pain. CO PERSIST R LBP SINCE 10/04, WORSE SINCE YEST. DC 10/05 FOR ACUTE EXAC CHRONIC ABD PAIN, ESRD. PS "I WAS NEVER PICKED UP YESTERDAY FOR MY HD", LAST HD 10/04. DENIES SOB, CP. EXAM MOD DIST NONTOXIC NARD BACK LIMITED ROM +SPASM R LOWER BACK NEURO IN TACT Time Seen by Provider: 10/07/16 10:38 Chief Complaint (Nursing): Back Pain History Per: Patient History/Exam Limitations: no limitations Onset/Duration Of Symptoms: Days Current Symptoms Are (Timing): Still Present Severity: Moderate Past Medical History Reviewed: Historical Data, Nursing Documentation, Vital Signs Vital Signs: Last Vital Signs Temp 98.5 F 10/07/16 10:01 Pulse 82 10/07/16 10:01 Resp 17 10/07/16 10:01 BP 149/82 10/07/16 10:01 Pulse Ox 96 10/07/16 13:13 - Medical History PMH: Anemia, Depression, Diabetes, Gastritis (diabetic gastroparesis), HTN, Hypercholesterolemia, Pneumonia, End Stage Renal Disease (Dialysis M-W-F), Chronic Kidney Disease Surgical History: Cholecystectomy - [facility] Procedures BONE BIOPSY NEC (04/07/13) CATARAC PHACOEMULS/ASPIR (09/23/14) CONTRAST ARTERIOGRAM NEC (07/17/13) CONTRAST ARTERIOGRAM-LEG (04/07/13) DIALYSIS ARTERIOVENOSTOM (04/07/13) ESOPHAGOGASTRODUODENOSCOPY [EGD] W/CLOSED BIOPSY (09/19/13) EXCIS DEBRIDE OF WOUND, INFECT, OR BURN (07/17/13) EXCISION OF STOMACH, ENDO, DIAGN (09/13/16) EXCISION OF STOMACH, PYLORUS, ENDO, DIAGN (03/14/15) EXTRACTION OF LEFT LOWER LEG SKIN, EXTERNAL APPROACH (06/16/16) HEMODIALYSIS (01/01/15) INCIS W REM OF FORIEGN BODY OR DEV FROM SKIN & SUBCUT TISSUE (05/27/13) INDIVID PSYCHOTHERAP NEC (04/20/13) INJECT/INFUSE NEC (11/09/13) INSERT LENS AT CATAR EXT (09/23/14) INSPECTION OF UPPER INTESTINAL TRACT, ENDO (03/10/16) OCCUPATIONAL THERAPY (04/30/13) OTHER GROUP THERAPY (04/20/13) OTHER SKIN & SUBQ I D (07/17/13) PERFORMANCE OF URINARY FILTRATION, MULTIPLE (09/24/16) PERFORMANCE OF URINARY FILTRATION, SINGLE (10/04/16) PHYSICAL THERAPY NEC (04/30/13) TRANSFUSE NONAUT RED BLOOD CELLS IN PERIPH VEIN, PERC (06/10/15) ULTRASONOGRAPHY OF RIGHT AND LEFT HEART, TRANSESOPHAGEAL (06/19/15) Family History: States: Diabetes - Social History Hx Tobacco Use: No Hx Alcohol Use: No Hx Substance Use: No - Immunization History Hx Tetanus Toxoid Vaccination: Yes Hx Influenza Vaccination: Yes Hx Pneumococcal Vaccination: Yes Review Of Systems Except As Marked, All Systems Reviewed And Found Negative. Constitutional: Negative for: Fever Cardiovascular: Negative for: Chest Pain Respiratory: Negative for: Shortness of Breath Gastrointestinal: Negative for: Nausea, Vomiting Musculoskeletal: Positive for: Back Pain Neurological: Negative for: Weakness, Numbness Physical Exam - Physical Exam Appears: Non-toxic, No Acute Distress Skin: Warm, Dry, No Rash Head: Atraumatic, Normacephalic Eye(s): bilateral: Normal Inspection Nose: Normal Oral Mucosa: Moist Lips: Normal Appearing Neck: Normal ROM Chest: Symmetrical Cardiovascular: Rhythm Regular, No Murmur Respiratory: Normal Breath Sounds, No Accessory Muscle Use Back: Other ( LIMITED ROM +SPASM R LOWER BACK) Extremity: Normal ROM Neurological/Psych: Oriented x3 ED Course And Treatment - Laboratory Results Result Diagrams: 10/07/16 12:33 ECG: Interpreted By Me, Viewed By Me ECG Rhythm: Sinus Rhythm ECG Interpretation: No Acute Changes Interpretation Of ECG: LAD. Rate From EC O2 Sat by Pulse Oximetry: 96 - Radiology CXR: Interpreted by Me, Viewed By Me CXR Interpretation: Yes: Other (Vascular congestion B/L) Progress - Re-Evaluation Re-evaluation Note: 10/07/16 13:11 D/W PMD WILL ADMIT 10/07/16 13:18 D/W DR CULLEN C/F DR WILLIAMSON WILL CONSULT, ARRANGE FOR HD. - Data Reviewed Data Reviewed: Lab, Diagnostic imaging, EKG, Old records Disposition Counseled Patient/Family Regarding: Studies Performed, Diagnosis - Disposition Disposition: HOSPITALIZED Disposition Time: 13:12 Condition: STABLE - Clinical Impression Clinical Impression: Low back pain, ESRD on hemodialysis, Hyperkalemia - Scribe Statement The provider has reviewed the documentation as recorded by the Baron Carcamo All medical record entries made by the Crissyibisrael were at my direction and personally dictated by me. I have reviewed the chart and agree that the record accurately reflects my personal performance of the history, physical exam, medical decision making, and the department course for this patient. I have also personally directed, reviewed, and agree with the discharge instructions and disposition. Decision To Admit - Pt Status Changed To: Hospital Disposition Of: Inpatient - Admit Certification Admit to Inpatient:: After my assessment, the patient will require hospitalization for at least two midnights. This is because of the severity of symptoms shown, intensity of services needed, and/or the medical risk in this patient being treated as an outpatient. - InPatient: Physician Admission Certification: I certify that this patient requires 2 or more midnights of care for the following reason:: SEE NOTE - . Bed Request Type: Telemetry Admitting Physician: Sal Gamez Patient Diagnosis: Low back pain, ESRD on hemodialysis, Hyperkalemia
--- NOTE | 2016-10-07 11:59 | RAD ---
PROCEDURE: CHEST RADIOGRAPH, 1 VIEW HISTORY: ESRD COMPARISON: None available. FINDINGS: LUNGS: Diffuse bilateral infiltrates may represent pulmonary edema /fluid overload ; rule out CHF PLEURA: Questionable small left effusion CARDIOVASCULAR: Cardiomegaly OSSEOUS STRUCTURES: No significant abnormalities. VISUALIZED UPPER ABDOMEN: Normal. OTHER FINDINGS: None. IMPRESSION: Diffuse bilateral airspace disease on may represent pulmonary edema/ fluid overload ; rule out CHF. RulQuestionable small left effusion Cardiomegaly.
[2016-10-07 12:54] LABS: CALCIUM 9.3 mg/dl (8.6-10.4)
[2016-10-07 13:03] LABS: POTASSIUM 7.4 mmol/L (3.6-5.2)
[2016-10-07] MEDS ORDERED: Dextrose 50% SYRINGE Inj (50 ml) IVP STA (13:19)
[2016-10-07] MEDS ORDERED: Calcium Gluconate 4.65 MEQ in Dextrose 5% In Water 100 ML IV STA (13:19)
[2016-10-07] MEDS ORDERED: (Novolin R) Insulin Human Regular 100 units/ml vial IV STA (13:19)
[2016-10-07] MEDS ORDERED: Sod Polystyrene Sulf 15 gm/60 ml Oral Susp PO ONE (13:20)
[2016-10-07] MEDS ORDERED: Dextrose 50% SYRINGE Inj (50 ml) ONE (13:57)
[2016-10-07] MEDS ORDERED: (Novolin R) Insulin Human Regular 100 units/ml vial ONE (13:58)
[2016-10-07] MEDS ORDERED: Sod Polystyrene Sulf 15 gm/60 ml Oral Susp ONE (13:59)
[2016-10-07 14:20] LABS: BASO # 0.1 K/uL (0.0-0.2); BASO % 0.8 % (0.0-2.0); EOS # 0.6 K/uL (0.0-0.7); HEMATOCRIT 26.3 % (34.0-47.0); LYMPH # 1.2 K/uL (1.0-4.3); LYMPH % 11.8 % (20.0-40.0); MEAN CELL VOLUME 91.8 fL (81.0-99.0); MEAN CORPUSCULAR HEMOGLOBIN 30.6 pg (27.0-31.0); MEAN CORPUSCULAR HGB CONC 33.4 g/dL (33.0-37.0); MEAN PLATELET VOLUME 8.7 fL (7.2-11.7); MONO # 0.6 K/uL (0.0-0.8); MONO % 5.3 % (0.0-10.0); WHITE BLOOD COUNT 10.4 K/uL (4.8-10.8)
[2016-10-07] MEDS ORDERED: Oxycodone/Acetaminophen 5/325 mg Tab PO PRN (14:22)
[2016-10-07] MEDS ORDERED: Dextrose 50% SYRINGE Inj (50 ml) IVP ONE (14:45)
[2016-10-07] MEDS ORDERED: (Novolin R) Insulin Human Regular 100 units/ml vial IV ONE (14:45)
[2016-10-07] MEDS ORDERED: Dextrose 50% SYRINGE Inj (50 ml) IV ONE (16:00)
--- NOTE | 2016-10-07 18:37 | CP.PCM.CON ---
History of Present Illness - History of Present Illness History of Present Illness: Initial Nephrology Consultation: Assessment: End stage renal disease on hemodialysis (MWF) via AVF with hyperkalemia, pulmonary edema and missed HD Anemia, Hyperphosphatemia, Secondary hyperparathyroidism, HTN Plan: Will plan for HD today as ordered. Will plan for dialysis sunday. Continue with Nephrovite 1 tab/day. PRBC as needed for anemia. On EDMAR as epogen 8000 unit with HD, last Hb 8.8 Continue with phos binders home meds, check phos level BP control with meds as ordered. Patient not on RAAS shay as has tendency to miss HD and come with severe hyperkalemia. Glycemic control, Dialysis consistent diet, low K diet Further work up/management for her pain as per primary team Dose meds/antibiotics (if needed) for ESRD status. Avoid fleets enema/magnesium based laxatives. compliance to dialysis reinforced Thanks for allowing me to participate in care of your patient. Will follow patient with you. Please call if any Qs Dr Aurelio Brar Office: [phone] Chief Complaint; back and stomach pain HPI: Pt is a 40 y/o F with hx of ESRD on hemodialysis (MWF) via AVF, missed yesterday, chronic anemia, hyperphosphatemia, secondary hyperparathyroidism, Diabetes Mellitus, hypertension presented with complaints of lowr back pain and lower abdomen pain with loose stool. says she was not picked up for dialysis yesterday and she missed HD. Denies chest pain, palpitation, shortness of breath, leg swelling ROS: Constitutional Symptoms: Denies fever. No chills. No Recent Weight Changes Eyes: denies change in vision, denies watery eyes, denies double vision Ears/Nose/Mouth/Throat: Denies Abnormal Taste. No Bad breath or Bad Taste. Cardiovascular: No chest pain. There is no shortness of breath. No palpitations. Pulmonary: No shortness of breath or cough. Gastrointestinal: c/o abdominal pain No nausea. No vomiting. c/o loose stool. Denies Bleeding Genitourinary: makes small urine. No associated pain or blood. Neurological: Denies headaches. No dizziness. Denies loss of balance. Denies weakness, denies tingling/numbness Dermatological: No Rash or Bruising or ulcers. Psychiatric: Denies Anxiety. No depression. Denies hallucinations. Rheumatological: c/o back pain. Denies Joint swelling Endocrine: Denies over tiredness. Denies Fatigue and denies Heat/Cold Intolerance. Physical Examination: General Appearance:uncomfortable, in no acute respiratory distress, co- operative . ill appearing Vitals reviewed and noted as below Head; Atraumatic, normocephalic ENT: no ulcers no thrush. Tongue is midline. Oropharynx: no rash or ulcers. EYES: Pupils are equal, round and reactive to light accommodation. Eye muscles and extraocular movement intact. Sclera is anicteric. Neck; supple no lymphadenopathy, no thyromegaly or bruit Lungs: Normal respiratory rate/effort. Breath sounds bilateral equal with basal crackles Heart: Normal rate. s1s2 normal. No rub or gallop. Extremities: no edema. No varicose veins Neurological: Patient is awake and oriented to person, place and time. No focal deficit. Strength bilateral appropriate and equal. somewhat sleepy though Skin: Warm and dry. Normal turgor. No rash. Palpitation: Normal elasticity for age Abdomen: Abdomen is soft. Bowel sounds +. There is no abdominal tenderness, no guarding/rigidity or organomegaly Psych: normal insight and normal affect/mood MSK: no joint tenderness or swelling. Digits and nails normal, no deformity : kidney or bladder not palpable Access: AVF Labs/imaging reviewed. Past medical history, past surgical history, family history, social history, allergy reviewed and noted as below Past Patient History - Infectious Disease Hx of Infectious Diseases: None - Past Medical History & Family History Past Medical History?: Yes - Past Social History Smoking Status: Never Smoked - CARDIAC Hx Hypercholesterolemia: Yes Hx Hypertension: Yes - PULMONARY Hx Pneumonia: Yes - HEENT Hx HEENT Problems: Yes Hx Cataracts: Yes (09/23/14 left) - RENAL Hx Chronic Kidney Disease: Yes - ENDOCRINE/METABOLIC Hx Endocrine Disorders: Yes Hx Diabetes Mellitus Type 2: Yes - HEMATOLOGICAL/ONCOLOGICAL Hx Anemia: Yes - INTEGUMENTARY Hx Dermatological Problems: Yes Other/Comment: right great toe amputation - MUSCULOSKELETAL/RHEUMATOLOGICAL Hx Falls: Yes - GASTROINTESTINAL Hx Gastritis: Yes (diabetic gastroparesis) - GENITOURINARY/GYNECOLOGICAL Hx Genitourinary Disorders: Yes Other/Comment: renal failure - PSYCHIATRIC Hx Depression: Yes Hx Substance Use: No - SURGICAL HISTORY Hx Cholecystectomy: Yes - ANESTHESIA Hx Anesthesia: Yes Hx Anesthesia Reactions: No Hx Malignant Hyperthermia: No Meds Allergies/Adverse Reactions: Allergies Allergy/AdvReac Type Severity Reaction Status Date / Time ketorolac tromethamine Allergy Verified 10/02/16 06:15 [From Toradol] morphine Allergy Verified 10/02/16 06:15 tramadol Allergy RASH Verified 10/07/16 10:07 - Medications Medications: Current Medications Calcium Acetate (Phoslo) 667 mg PO TIDCC [facility] Carvedilol (Coreg) 25 mg PO BID [facility] Clonidine HCl (Catapres-Tts3 0.3 Mg/24 Hr) 2 patch TD Q7D@1000 [facility] Epoetin Cornelius (Procrit) 8,000 unit IV MWF [facility] Stop: 10/13/16 09:01 Fentanyl (Duragesic) 1 patch TD Q72H [facility] Heparin Sodium (Porcine) (Heparin) 5,000 units SC Q12 [facility] Hydralazine HCl (Apresoline) 100 mg PO Q8 [facility] Metoclopramide HCl (Reglan) 10 mg PO AC [facility] Nifedipine (Procardia Xl) 90 mg PO DAILY [facility] Oxycodone/Acetaminophen (Percocet 5/325 Mg Tab) 2 tab PO Q4H PRN PRN Reason: Pain, moderate (4-7) Pantoprazole Sodium (Protonix Ec Tab) 40 mg PO DAILY [facility] Rosuvastatin Calcium (Crestor) 2.5 mg PO HS [facility] Timolol Maleate (Timoptic 0.25% Ophth Soln) 1 drop OD BID [facility] Vitamin B Complex/Vit C/Folic Acid (Nephro-Anjelica) 1 tab PO DAILY [facility] Results - Vital Signs Recent Vital Signs: Last Vital Signs Temp 98 F 10/07/16 18:05 Pulse 80 10/07/16 18:05 Resp 16 10/07/16 18:05 BP 175/82 H 10/07/16 18:05 Pulse Ox 99 10/07/16 18:05 - Labs Result Diagrams: 10/07/16 14:10 10/07/16 12:33 Labs: Laboratory Results - last 24 hr 10/07/16 10/07/16 10/07/16 14:10 15:34 16:40 WBC 10.4 RBC 2.86 L Hgb 8.8 L Hct 26.3 L MCV 91.8 MCH 30.6 MCHC 33.4 RDW 17.0 H Plt Count 156 MPV 8.7 Neut % (Auto) 76.1 H Lymph % (Auto) 11.8 L [place] % (Auto) 5.3 Eos % (Auto) 6.0 H Baso % (Auto) 0.8 Neut # 7.9 H Lymph # 1.2 [place] # 0.6 Eos # 0.6 Baso # 0.1 POC Glucose (mg/dL) 77 101
[2016-10-07] MEDS ORDERED: EPOETIN ALFA 4,000 UNIT/ML ML Dialysis IV SCH (19:00)
[2016-10-07] MEDS: Timolol 0.25% Ophth SOLN OD SCH (19:48)
[2016-10-07] MEDS: Rosuvastatin Calcium 2.5 mg Tab PO SCH (22:06)
[2016-10-07] MEDS: DiphenhydrAMINE 50 mg/ml Inj IVP PRN (22:47)
[2016-10-07] MEDS: HYDROmorphone 0.5 mg/0.5 ml ISec IVP PRN (22:47)
[2016-10-08] MEDS: HYDROmorphone 0.5 mg/0.5 ml ISec IVP PRN ×6 (02:47→22:41)
[2016-10-08] MEDS: DiphenhydrAMINE 50 mg/ml Inj IVP PRN ×6 (02:48→22:41)
--- NOTE | 2016-10-08 04:28 | CP.PCM.HP ---
History of Present Illness - History of Present Illness History of Present Illness: 40-year-old female, PMHx includes Anemia, Depression, Diabetes, Gastritis, Hypertension, Hypercholesterolemia, Pneumonia, End Stage Renal Disease ( Dialysis M-W-F), presents to the emergency department with complaints of right- lower back pain since 10/04, that is worse since yesterday. Patient discharged 10/05 for acute exacerbation of chronic abdominal pain. Patient states "I was never picked up yesterday for mu HD." Last HD on 10/04. Denies shortness of breath or chest pain. CO PERSIST R LBP SINCE 10/04, WORSE SINCE YEST. DC 10/05 FOR ACUTE EXAC CHRONIC ABD PAIN, ESRD. PS "I WAS NEVER PICKED UP YESTERDAY FOR MY HD", LAST HD 10/04. DENIES SOB, CP. EXAM MOD DIST NONTOXIC NARD BACK LIMITED ROM +SPASM R LOWER BACK NEURO IN TACT Past Patient History - Infectious Disease Hx of Infectious Diseases: None - Past Medical History & Family History Past Medical History?: Yes - Past Social History Smoking Status: Former Smoker - CARDIAC Hx Hypercholesterolemia: Yes Hx Hypertension: Yes - PULMONARY Hx Pneumonia: Yes - HEENT Hx HEENT Problems: Yes Hx Cataracts: Yes (09/23/14 left) - RENAL Hx Chronic Kidney Disease: Yes - ENDOCRINE/METABOLIC Hx Endocrine Disorders: Yes Hx Diabetes Mellitus Type 2: Yes - HEMATOLOGICAL/ONCOLOGICAL Hx Anemia: Yes - INTEGUMENTARY Hx Dermatological Problems: Yes Other/Comment: right great toe amputation - MUSCULOSKELETAL/RHEUMATOLOGICAL Hx Falls: Yes - GASTROINTESTINAL Hx Gastritis: Yes (diabetic gastroparesis) - GENITOURINARY/GYNECOLOGICAL Hx Genitourinary Disorders: Yes Other/Comment: renal failure - PSYCHIATRIC Hx Depression: Yes Hx Substance Use: No - SURGICAL HISTORY Hx Cholecystectomy: Yes - ANESTHESIA Hx Anesthesia: Yes Hx Anesthesia Reactions: No Hx Malignant Hyperthermia: No Meds Allergies/Adverse Reactions: Allergies Allergy/AdvReac Type Severity Reaction Status Date / Time ketorolac tromethamine Allergy Verified 10/02/16 06:15 [From Toradol] morphine Allergy Verified 10/02/16 06:15 tramadol Allergy RASH Verified 10/07/16 10:07 Results - Vital Signs Recent Vital Signs: Last Vital Signs Temp 98.6 F 10/08/16 00:05 Pulse 77 10/08/16 00:05 Resp 20 10/08/16 00:05 BP 172/84 H 10/08/16 00:05 Pulse Ox 99 10/08/16 00:05 - Labs Result Diagrams: 10/07/16 14:10 10/07/16 12:33 Labs: Laboratory Results - last 24 hr 10/07/16 10/07/16 10/07/16 14:10 15:34 16:40 WBC 10.4 RBC 2.86 L Hgb 8.8 L Hct 26.3 L MCV 91.8 MCH 30.6 MCHC 33.4 RDW 17.0 H Plt Count 156 MPV 8.7 Neut % (Auto) 76.1 H Lymph % (Auto) 11.8 L [place] % (Auto) 5.3 Eos % (Auto) 6.0 H Baso % (Auto) 0.8 Neut # 7.9 H Lymph # 1.2 [place] # 0.6 Eos # 0.6 Baso # 0.1 POC Glucose (mg/dL) 77 101 10/07/16 10/08/16 22:00 02:15 WBC RBC Hgb Hct MCV MCH MCHC RDW Plt Count MPV Neut % (Auto) Lymph % (Auto) [place] % (Auto) Eos % (Auto) Baso % (Auto) Neut # Lymph # [place] # Eos # Baso # POC Glucose (mg/dL) 104 84
[2016-10-08 08:28] LABS: BASO # 0.1 K/uL (0.0-0.2); EOS # 0.5 K/uL (0.0-0.7); EOS % 6.9 % (0.0-4.0); HEMATOCRIT 24.3 % (34.0-47.0); LYMPH % 14.1 % (20.0-40.0); MEAN CELL VOLUME 92.7 fL (81.0-99.0); MEAN CORPUSCULAR HEMOGLOBIN 31.1 pg (27.0-31.0); MEAN CORPUSCULAR HGB CONC 33.6 g/dL (33.0-37.0); MEAN PLATELET VOLUME 8.4 fL (7.2-11.7); MONO # 0.4 K/uL (0.0-0.8); MONO % 5.5 % (0.0-10.0); RED CELL DISTRIBUTION WIDTH 16.8 % (11.5-14.5); WHITE BLOOD COUNT 7.1 K/uL (4.8-10.8)
[2016-10-08 08:42] LABS: POTASSIUM 5.9 mmol/L (3.6-5.2)
[2016-10-08 08:45] LABS: CALCIUM 8.6 mg/dl (8.6-10.4); PHOSPHOROUS 4.2 mg/dL (2.5-4.5)
[2016-10-08] MEDS: Multivitamin Vitamin B Complex (Nephro-Vite) Tab PO SCH (09:17)
[2016-10-08] MEDS: NIFEdipine 90 mg ER Tab PO SCH (09:17)
[2016-10-08] MEDS: Pantoprazole 40 mg EC Tab PO SCH (09:17)
--- NOTE | 2016-10-08 10:17 | CP.PCM.CON ---
History of Present Illness - History of Present Illness History of Present Illness: Podiatry consult note- Dr. Bran 40 year old female with PMHx of Anemia, Depression, Diabetes, Gastritis, Hypertension, Hypercholesterolemia, Pneumonia, End Stage Renal Disease ( Dialysis M-W-F), seen by podiatry for left heel chronic ulceration. The patient states that she does not recall how long she has had the ulceration, however states that it has been treated while she was in the shelter. She reports having surgery to remove part of her bone which was infected, however she does not recall what the surgery was or when. She has a history of right hallux amputation as well. Patient states that the wound has been fairly stable but she is concerned due to malodor of the area. She denies n/v/f/c/sob. Patient has a history of OM of the heel per attending. Past Patient History - Infectious Disease Hx of Infectious Diseases: None - Past Medical History & Family History Past Medical History?: Yes - Past Social History Smoking Status: Former Smoker - CARDIAC Hx Hypercholesterolemia: Yes Hx Hypertension: Yes - PULMONARY Hx Pneumonia: Yes - HEENT Hx HEENT Problems: Yes Hx Cataracts: Yes (09/23/14 left) - RENAL Hx Chronic Kidney Disease: Yes - ENDOCRINE/METABOLIC Hx Endocrine Disorders: Yes Hx Diabetes Mellitus Type 2: Yes - HEMATOLOGICAL/ONCOLOGICAL Hx Anemia: Yes - INTEGUMENTARY Hx Dermatological Problems: Yes Other/Comment: right great toe amputation - MUSCULOSKELETAL/RHEUMATOLOGICAL Hx Falls: Yes - GASTROINTESTINAL Hx Gastritis: Yes (diabetic gastroparesis) - GENITOURINARY/GYNECOLOGICAL Hx Genitourinary Disorders: Yes Other/Comment: renal failure - PSYCHIATRIC Hx Depression: Yes Hx Substance Use: No - SURGICAL HISTORY Hx Cholecystectomy: Yes - ANESTHESIA Hx Anesthesia: Yes Hx Anesthesia Reactions: No Hx Malignant Hyperthermia: No Meds Allergies/Adverse Reactions: Allergies Allergy/AdvReac Type Severity Reaction Status Date / Time ketorolac tromethamine Allergy Verified 10/02/16 06:15 [From Toradol] morphine Allergy Verified 10/02/16 06:15 tramadol Allergy RASH Verified 10/07/16 10:07 - Medications Medications: Current Medications Calcium Acetate (Phoslo) 667 mg PO TIDCC [facility] Last Admin: 10/08/16 08:01 Dose: 667 mg Carvedilol (Coreg) 25 mg PO BID [facility] Last Admin: 10/08/16 09:17 Dose: 25 mg Clonidine HCl (Catapres-Tts3 0.3 Mg/24 Hr) 2 patch TD Q7D@1000 [facility] Diphenhydramine HCl (Benadryl) 25 mg IVP Q4 PRN PRN Reason: Itching / Pruritus Last Admin: 10/08/16 06:42 Dose: 25 mg Epoetin Cornelius (Procrit) 8,000 unit IV MWF [facility] Stop: 10/13/16 09:01 Fentanyl (Duragesic) 1 patch TD Q72H [facility] Last Admin: 10/07/16 19:13 Dose: 1 patch Heparin Sodium (Porcine) (Heparin) 5,000 units SC Q12 [facility] Last Admin: 10/08/16 09:17 Dose: 5,000 units Hydralazine HCl (Apresoline) 100 mg PO Q8 [facility] Last Admin: 10/08/16 05:25 Dose: 100 mg Hydromorphone HCl (Dilaudid) 0.5 mg IVP Q4H PRN PRN Reason: Pain, moderate (4-7) Last Admin: 10/08/16 06:42 Dose: 0.5 mg Metoclopramide HCl (Reglan) 10 mg PO AC [facility] Last Admin: 10/08/16 06:41 Dose: 10 mg Nifedipine (Procardia Xl) 90 mg PO DAILY [facility] Last Admin: 10/08/16 09:17 Dose: 90 mg Pantoprazole Sodium (Protonix Ec Tab) 40 mg PO DAILY [facility] Last Admin: 10/08/16 09:17 Dose: 40 mg Rosuvastatin Calcium (Crestor) 2.5 mg PO HS [facility] Last Admin: 10/07/16 22:06 Dose: 2.5 mg Timolol Maleate (Timoptic 0.25% Ophth Soln) 1 drop OD BID [facility] Last Admin: 10/07/16 19:48 Dose: Not Given Vitamin B Complex/Vit C/Folic Acid (Nephro-Anjelica) 1 tab PO DAILY [facility] Last Admin: 10/08/16 09:17 Dose: 1 tab Physical Exam - Constitutional Appears: Well, Non-toxic, No Acute Distress - Neurological Exam Neurological exam: Oriented x3 - Psychiatric Exam Psychiatric exam: Normal Affect, Normal Mood - Additional Findings Additional findings: DERMATOLOGIC: Left heel ulceration with hyperkeratotic tissue overlying, there is slightly macerated area medially which was debrided, revealing pus formation underneath. No erythema, no streaking. Serous drainage present. Positive malodor. VASCULAR: DP/PT pulses 2/4, DIRECTOR OF EVENT MARKETING<3 seconds, skin temperature normal, mild edema of the left foot NEUROLOGIC: Protective sensation decreased ORTHOPEDIC: Pain on palpation to the left heel. There is abduction deformity of the left foot with external rotation of the ankle, limb length discrepency on the left side. 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 Results - Vital Signs Recent Vital Signs: Last Vital Signs Temp 98.8 F 10/08/16 08:15 Pulse 82 10/08/16 08:15 Resp 20 10/08/16 08:15 BP 187/94 H 10/08/16 09:17 Pulse Ox 99 10/08/16 08:15 - Labs Result Diagrams: 10/08/16 08:09 10/08/16 08:09 Labs: Laboratory Results - last 24 hr 10/07/16 10/07/16 10/07/16 14:10 15:34 16:40 WBC 10.4 RBC 2.86 L Hgb 8.8 L Hct 26.3 L MCV 91.8 MCH 30.6 MCHC 33.4 RDW 17.0 H Plt Count 156 MPV 8.7 Neut % (Auto) 76.1 H Lymph % (Auto) 11.8 L [place] % (Auto) 5.3 Eos % (Auto) 6.0 H Baso % (Auto) 0.8 Neut # 7.9 H Lymph # 1.2 [place] # 0.6 Eos # 0.6 Baso # 0.1 Sodium Potassium Chloride Carbon Dioxide Anion Gap BUN Creatinine Est GFR ( Amer) Est GFR (Non-Af Amer) POC Glucose (mg/dL) 77 101 Random Glucose Calcium Phosphorus C. difficile Ag & Toxin 10/07/16 10/07/16 10/08/16 22:00 Unknown 02:15 WBC RBC Hgb Hct MCV MCH MCHC RDW Plt Count MPV Neut % (Auto) Lymph % (Auto) [place] % (Auto) Eos % (Auto) Baso % (Auto) Neut # Lymph # [place] # Eos # Baso # Sodium Potassium Chloride Carbon Dioxide Anion Gap BUN Creatinine Est GFR ( Amer) Est GFR (Non-Af Amer) POC Glucose (mg/dL) 104 84 Random Glucose Calcium Phosphorus C. difficile Ag & Toxin Negative 10/08/16 10/08/16 10/08/16 06:38 08:09 08:09 WBC 7.1 RBC 2.62 L Hgb 8.2 L Hct 24.3 L MCV 92.7 MCH 31.1 H MCHC 33.6 RDW 16.8 H Plt Count 151 MPV 8.4 Neut % (Auto) 72.5 Lymph % (Auto) 14.1 L [place] % (Auto) 5.5 Eos % (Auto) 6.9 H Baso % (Auto) 1.0 Neut # 5.2 Lymph # 1.0 [place] # 0.4 Eos # 0.5 Baso # 0.1 Sodium 137 Potassium 5.9 H Chloride 96 L Carbon Dioxide 28 Anion Gap 19 BUN 38 H Creatinine 5.2 H Est GFR ( Amer) 11 Est GFR (Non-Af Amer) 9 POC Glucose (mg/dL) 140 H Random Glucose 103 Calcium 8.6 Phosphorus 4.2 C. difficile Ag & Toxin Assessment & Plan - Assessment and Plan (Free Text) Assessment: 40 year old female with chronic left heel ulceration, history of OM Plan: Patient seen and evaluated, d/w attending Dr. Bran Patient left heel cleansed with sterile saline, sharply debrided using a #15 blade, with purulent drainage expressed. Culture taken. Left foot x-rays ordered Left foot dressed with xeroform, DSD Prevalon boots ordered to offload the heel Podiatry will continue to follow
[2016-10-08] MEDS: Timolol 0.25% Ophth SOLN OD SCH ×2 (11:05→18:06)
[2016-10-08] MEDS ORDERED: Sod Polystyrene Sulf 15 gm/60 ml Oral Susp PO ONE (11:47)
--- NOTE | 2016-10-08 15:29 | CP.PCM.PN ---
Subjective - Date & Time of Evaluation Date of Evaluation: 10/08/16 Time of Evaluation: 15:27 - Subjective Subjective: Follow up Nephrology Consultation: Assessment: End stage renal disease on hemodialysis (MWF) via AVF with hyperkalemia, pulmonary edema and missed HD Anemia, Hyperphosphatemia, Secondary hyperparathyroidism, HTN Plan: Will plan for dialysis sunday as ordered. no acute need today Continue with Nephrovite 1 tab/day. PRBC as needed for anemia. On EDMAR as epogen 8000 unit with HD, last Hb 8.2 Continue with phos binders home meds, last phos level 4.2 BP control with meds as ordered. Patient not on RAAS shay as has tendency to miss HD and come with severe hyperkalemia. anticipate to get it better with better volume status with dialysis. will add minoxidil 5 mg/day for now Glycemic control, Dialysis consistent diet, low K diet Further work up/management for her pain as per primary team Dose meds/antibiotics (if needed) for ESRD status. Avoid fleets enema/magnesium based laxatives. compliance to dialysis reinforced Thanks for allowing me to participate in care of your patient. Will follow patient with you. Please call if any Qs Dr Aurelio Brra Office: [phone] Subjective: noted events overnight. seen by podiatry for foot ulcer. still c/o pain abdomen and back pain ROS: Constitutional Symptoms: Denies fever. No chills. No Recent Weight Changes Eyes: denies change in vision, denies watery eyes, denies double vision Ears/Nose/Mouth/Throat: Denies Abnormal Taste. No Bad breath or Bad Taste. Cardiovascular: No chest pain. There is no shortness of breath. No palpitations. Pulmonary: No shortness of breath or cough. Gastrointestinal: c/o abdominal pain No nausea. No vomiting. c/o loose stool. Denies Bleeding Rheumatological: c/o back pain. Denies Joint swelling Endocrine: Denies over tiredness. Denies Fatigue and denies Heat/Cold Intolerance. Physical Examination: General Appearance:comfortable, in no acute respiratory distress, co-operative . Vitals reviewed and noted as below Lungs: Normal respiratory rate/effort. Breath sounds bilateral equal with basal crackles Heart: Normal rate. s1s2 normal. No rub or gallop. Extremities: no edema. No varicose veins Neurological: Patient is awake and oriented to person, place and time. No focal deficit. Strength bilateral appropriate and equal. somewhat sleepy though Abdomen: Abdomen is soft. Bowel sounds +. There is no abdominal tenderness, no guarding/rigidity or organomegaly Access: F Labs/imaging reviewed. Past medical history, past surgical history, family history, social history, allergy reviewed Objective - Vital Signs/Intake and Output Vital Signs (last 24 hours): Temp Pulse Resp BP Pulse Ox 98.8 F 82 20 165/82 H 99 10/08/16 08:15 10/08/16 08:15 10/08/16 08:15 10/08/16 13:54 10/08/16 08:15 Intake and Output: 10/08/16 10/08/16 06:59 18:59 Intake Total 320 480 Balance 320 480 - Medications Medications: Current Medications Calcium Acetate (Phoslo) 667 mg PO TIDCC [facility] Last Admin: 10/08/16 12:05 Dose: 667 mg Carvedilol (Coreg) 25 mg PO BID [facility] Last Admin: 10/08/16 09:17 Dose: 25 mg Clonidine HCl (Catapres-Tts3 0.3 Mg/24 Hr) 1 patch TD Q7D@1000 [facility] Last Admin: 10/08/16 11:04 Dose: 1 patch Diphenhydramine HCl (Benadryl) 25 mg IVP Q4 PRN PRN Reason: Itching / Pruritus Last Admin: 10/08/16 15:00 Dose: 25 mg Epoetin Cornelius (Procrit) 8,000 unit IV MWF [facility] Stop: 10/13/16 09:01 Fentanyl (Duragesic) 1 patch TD Q72H [facility] Last Admin: 10/07/16 19:13 Dose: 1 patch Heparin Sodium (Porcine) (Heparin) 5,000 units SC Q12 [facility] Last Admin: 10/08/16 09:17 Dose: 5,000 units Hydralazine HCl (Apresoline) 100 mg PO Q8 [facility] Last Admin: 10/08/16 13:53 Dose: 100 mg Hydromorphone HCl (Dilaudid) 0.5 mg IVP Q4H PRN PRN Reason: Pain, moderate (4-7) Last Admin: 10/08/16 15:00 Dose: 0.5 mg Metoclopramide HCl (Reglan) 10 mg PO AC [facility] Last Admin: 10/08/16 11:04 Dose: 10 mg Minoxidil (Minoxidil) 5 mg PO DAILY [facility] Nifedipine (Procardia Xl) 90 mg PO DAILY [facility] Last Admin: 10/08/16 09:17 Dose: 90 mg Pantoprazole Sodium (Protonix Ec Tab) 40 mg PO DAILY [facility] Last Admin: 10/08/16 09:17 Dose: 40 mg Rosuvastatin Calcium (Crestor) 2.5 mg PO HS [facility] Last Admin: 10/07/16 22:06 Dose: 2.5 mg Timolol Maleate (Timoptic 0.25% [facility]) 1 drop OD BID [facility] Last Admin: 10/08/16 11:05 Dose: 1 drop Vitamin B Complex/Vit C/Folic Acid (Nephro-Anjelica) 1 tab PO DAILY [facility] Last Admin: 10/08/16 09:17 Dose: 1 tab - Labs Labs: 10/08/16 08:09 10/08/16 08:09
--- NOTE | 2016-10-08 18:50 | RAD ---
PROCEDURE: Left foot dated 10/08/2016. HISTORY: Chronic left heel ulceration. COMPARISON: None. FINDINGS: Mild diffuse demineralization. BONES: There is loss of soft tissue over the dorsal aspect of the calcaneus consistent with this patient's history of ulceration. Small amount subcutaneous air appears to be present. Overlying bandage and or gauze obscures fine detail. There is a slight irregularity of the cortex of the dorsal calcaneus. This could represent early osteomyelitis. Followup bulla MRI of recommended. . There is moderate diffuse circumferential soft tissue swelling most pronounced at the level of the midfoot and metatarsal region. Findings could represent cellulitis. Mild diffuse demineralization Vascular calcifications are present JOINTS: Mild hallux valgus deformity with slight overgrowth of the head of the 1st metatarsal and mild prominence of the overlying medial soft tissues. Mild degenerative changes 1st MTP joint. . SOFT TISSUES: As above OTHER FINDINGS: None. IMPRESSION: There is loss of soft tissue over the dorsal aspect of the calcaneus consistent with this patient's history of ulceration. Small amount subcutaneous air appears to be present. Overlying bandage and or gauze obscures fine detail. There is a slight irregularity of the cortex of the dorsal calcaneus. This could represent early osteomyelitis. Followup bulla MRI of recommended. . There is moderate diffuse circumferential soft tissue swelling most pronounced at the level of the midfoot and metatarsal region. Findings could represent cellulitis. Mild diffuse demineralization Vascular calcifications are present
[2016-10-08] MEDS: Rosuvastatin Calcium 2.5 mg Tab PO SCH (21:26)
--- NOTE | 2016-10-08 22:55 | CP.PCM.PN ---
Subjective - Date & Time of Evaluation Date of Evaluation: 10/08/16 Time of Evaluation: 21:00 - Subjective Subjective: Pt seen and examined, is feeling better, had 1 episode of small amount of vomitting, left heel ulcer was seen by podiatry and was told about risk of getting infection Objective - Vital Signs/Intake and Output Vital Signs (last 24 hours): Temp Pulse Resp BP Pulse Ox 99 F 81 20 129/79 95 10/08/16 16:30 10/08/16 16:30 10/08/16 16:30 10/08/16 18:05 10/08/16 16:30 Intake and Output: 10/08/16 10/09/16 18:59 06:59 Intake Total 480 Balance 480 - Medications Medications: Current Medications Calcium Acetate (Phoslo) 667 mg PO TIDCC [facility] Last Admin: 10/08/16 16:34 Dose: 667 mg Carvedilol (Coreg) 25 mg PO BID [facility] Last Admin: 10/08/16 18:05 Dose: 25 mg Clonidine HCl (Catapres-Tts3 0.3 Mg/24 Hr) 1 patch TD Q7D@1000 [facility] Last Admin: 10/08/16 11:04 Dose: 1 patch Diphenhydramine HCl (Benadryl) 25 mg IVP Q4 PRN PRN Reason: Itching / Pruritus Last Admin: 10/08/16 22:41 Dose: 25 mg Epoetin Cornelius (Procrit) 8,000 unit IV MWF [facility] Stop: 10/13/16 09:01 Fentanyl (Duragesic) 1 patch TD Q72H [facility] Last Admin: 10/07/16 19:13 Dose: 1 patch Heparin Sodium (Porcine) (Heparin) 5,000 units SC Q12 [facility] Last Admin: 10/08/16 21:27 Dose: Not Given Hydralazine HCl (Apresoline) 100 mg PO Q8 [facility] Last Admin: 10/08/16 21:26 Dose: 100 mg Hydromorphone HCl (Dilaudid) 0.5 mg IVP Q4H PRN PRN Reason: Pain, moderate (4-7) Last Admin: 10/08/16 22:41 Dose: 0.5 mg Metoclopramide HCl (Reglan) 10 mg PO AC [facility] Last Admin: 10/08/16 16:34 Dose: 10 mg Minoxidil (Minoxidil) 5 mg PO DAILY [facility] Last Admin: 10/08/16 16:34 Dose: 5 mg Nifedipine (Procardia Xl) 90 mg PO DAILY [facility] Last Admin: 10/08/16 09:17 Dose: 90 mg Pantoprazole Sodium (Protonix Ec Tab) 40 mg PO DAILY [facility] Last Admin: 10/08/16 09:17 Dose: 40 mg Rosuvastatin Calcium (Crestor) 2.5 mg PO HS [facility] Last Admin: 10/08/16 21:26 Dose: 2.5 mg Timolol Maleate ([facility]optic [facility]) 1 drop OD BID [facility] Last Admin: 10/08/16 18:06 Dose: 1 drop Vitamin B Complex/Vit C/Folic Acid (Nephro-Anjelica) 1 tab PO DAILY [facility] Last Admin: 10/08/16 09:17 Dose: 1 tab - Labs Labs: 10/08/16 08:09 10/08/16 08:09 - Constitutional Appears: No Acute Distress - Head Exam Head Exam: ATRAUMATIC, NORMAL INSPECTION, NORMOCEPHALIC - Eye Exam Eye Exam: EOMI, Normal appearance, PERRL Pupil Exam: NORMAL ACCOMODATION, PERRL - ENT Exam ENT Exam: Mucous Membranes Moist, Normal Exam - Respiratory Exam Respiratory Exam: Clear to Ausculation Bilateral, NORMAL BREATHING PATTERN - Cardiovascular Exam Cardiovascular Exam: REGULAR RHYTHM, +S1, +S2. absent: Murmur Assessment and Plan (1) ESRD on hemodialysis Status: Acute (2) Abdominal pain with vomiting Assessment & Plan: continue reglan Status: Acute (3) Chronic ulcer of left foot Status: Acute (4) Diabetic foot ulcer Assessment & Plan: wound care by podiatry Status: Acute
[2016-10-09] MEDS: DiphenhydrAMINE 50 mg/ml Inj IVP PRN ×4 (03:18→21:43)
[2016-10-09] MEDS: HYDROmorphone 0.5 mg/0.5 ml ISec IVP PRN ×4 (03:19→21:44)
--- NOTE | 2016-10-09 08:18 | CP.PCM.PN ---
Subjective - Date & Time of Evaluation Date of Evaluation: 10/09/16 Time of Evaluation: 08:31 - Subjective Subjective: 40 y/o female patient seen and evaluated at bedside for left heel chronic osteomyelitis. Patient states that she does not feel good today due to back pain. Patient's left foot dressing intact, clean and dry. Patient was wearing Prevlon boot. Patient denies any symptoms of N/V/F/SOB/Chest pain. Objective - Vital Signs/Intake and Output Vital Signs (last 24 hours): Temp Pulse Resp BP Pulse Ox 98.6 F 77 18 121/71 97 10/09/16 07:20 10/09/16 07:20 10/09/16 07:20 10/09/16 07:20 10/09/16 07:20 - Medications Medications: Current Medications Calcium Acetate (Phoslo) 667 mg PO TIDCC [facility] Last Admin: 10/09/16 08:13 Dose: 667 mg Carvedilol (Coreg) 25 mg PO BID [facility] Last Admin: 10/08/16 18:05 Dose: 25 mg Clonidine HCl (Catapres-Tts3 0.3 Mg/24 Hr) 1 patch TD Q7D@1000 [facility] Last Admin: 10/08/16 11:04 Dose: 1 patch Diphenhydramine HCl (Benadryl) 25 mg IVP Q4 PRN PRN Reason: Itching / Pruritus Last Admin: 10/09/16 08:12 Dose: 25 mg Epoetin Cornelius (Procrit) 8,000 unit IV MWF [facility] Stop: 10/13/16 09:01 Fentanyl (Duragesic) 1 patch TD Q72H [facility] Last Admin: 10/07/16 19:13 Dose: 1 patch Heparin Sodium (Porcine) (Heparin) 5,000 units SC Q12 [facility] Last Admin: 10/08/16 21:27 Dose: Not Given Hydralazine HCl (Apresoline) 100 mg PO Q8 [facility] Last Admin: 10/09/16 06:45 Dose: 100 mg Hydromorphone HCl (Dilaudid) 0.5 mg IVP Q4H PRN PRN Reason: Pain, moderate (4-7) Last Admin: 10/09/16 08:12 Dose: 0.5 mg Metoclopramide HCl (Reglan) 10 mg PO AC [facility] Last Admin: 10/09/16 06:45 Dose: 10 mg Minoxidil (Minoxidil) 5 mg PO DAILY [facility] Last Admin: 10/08/16 16:34 Dose: 5 mg Nifedipine (Procardia Xl) 90 mg PO DAILY [facility] Last Admin: 10/08/16 09:17 Dose: 90 mg Pantoprazole Sodium (Protonix Ec Tab) 40 mg PO DAILY [facility] Last Admin: 10/08/16 09:17 Dose: 40 mg Rosuvastatin Calcium (Crestor) 2.5 mg PO HS [facility] Last Admin: 10/08/16 21:26 Dose: 2.5 mg Timolol Maleate (Timoptic 0.25% Ophth Soln) 1 drop OD BID [facility] Last Admin: 10/08/16 18:06 Dose: 1 drop Vitamin B Complex/Vit C/Folic Acid (Nephro-Anjelica) 1 tab PO DAILY [facility] Last Admin: 10/08/16 09:17 Dose: 1 tab - Labs Labs: 10/08/16 08:09 10/08/16 08:09 - Constitutional Appears: Non-toxic, No Acute Distress - Extremities Exam Additional comments: DERMATOLOGIC: Left heel ulceration with hyperkeratotic tissue overlying, there is slightly macerated area medially which was debrided, revealing pus formation underneath. No erythema, no streaking. Serous drainage present. Positive malodor. VASCULAR: DP/PT pulses 2/4, CAB STATION ATTENDANT<3 seconds, skin temperature normal, mild edema of the left foot NEUROLOGIC: Protective sensation decreased ORTHOPEDIC: Pain on palpation to the left heel. There is abduction deformity of the left foot with external rotation of the ankle, limb length discrepency on the left side. 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 - Neurological Exam Neurological Exam: Alert, Awake - Psychiatric Exam Psychiatric exam: Normal Affect, Normal Mood Assessment and Plan - Assessment and Plan (Free Text) Assessment: 40 year old female with chronic left heel ulceration, history of OM Plan: Patient seen and evaluated at bedside All the questions and concerns were addressed Left x ray was reviewed-left calcaneus cortical erosion and signs of osteomyelitis ID consult is in-Dr. Roque Wound cx result is pending Left foot dressing was changed with Xeroform, and DSD Advised patient to wear Prevlon boot when she remains in the bed Discussed with attending Dr. Bran Podiatry will continue to follow while patient remains in house.
[2016-10-09] MEDS: Timolol 0.25% Ophth SOLN OD SCH ×2 (09:00→17:04)
[2016-10-09 09:36] LABS: BASO # 0.1 K/uL (0.0-0.2); BASO % 1.2 % (0.0-2.0); EOS # 0.6 K/uL (0.0-0.7); EOS % 7.5 % (0.0-4.0); HEMATOCRIT 22.1 % (34.0-47.0); LYMPH # 1.3 K/uL (1.0-4.3); MEAN CORPUSCULAR HEMOGLOBIN 30.5 pg (27.0-31.0); MEAN CORPUSCULAR HGB CONC 33.2 g/dL (33.0-37.0); MEAN PLATELET VOLUME 8.6 fL (7.2-11.7); MONO # 0.5 K/uL (0.0-0.8); MONO % 6.1 % (0.0-10.0); RED CELL DISTRIBUTION WIDTH 16.7 % (11.5-14.5); WHITE BLOOD COUNT 7.6 K/uL (4.8-10.8)
[2016-10-09] MEDS: NIFEdipine 90 mg ER Tab PO SCH ×2 (09:44→13:37)
[2016-10-09 09:47] LABS: CALCIUM 8.3 mg/dl (8.6-10.4)
--- NOTE | 2016-10-09 11:11 | CP.PCM.PN ---
Subjective - Date & Time of Evaluation Date of Evaluation: 10/09/16 Time of Evaluation: 10:25 - Subjective Subjective: Currently on dialysis No SOB or CP Objective - Vital Signs/Intake and Output Vital Signs (last 24 hours): Temp Pulse Resp BP Pulse Ox 98.4 F 78 17 128/73 100 10/09/16 09:15 10/09/16 09:15 10/09/16 09:15 10/09/16 09:30 10/09/16 09:15 Intake and Output: 10/09/16 10/09/16 06:59 18:59 Intake Total 200 Balance 200 - Medications Medications: Current Medications Calcium Acetate (Phoslo) 667 mg PO TIDCC [facility] Last Admin: 10/09/16 08:13 Dose: 667 mg Carvedilol (Coreg) 25 mg PO BID [facility] Last Admin: 10/09/16 09:43 Dose: Not Given Clonidine HCl (Catapres-Tts3 0.3 Mg/24 Hr) 1 patch TD Q7D@1000 [facility] Last Admin: 10/08/16 11:04 Dose: 1 patch Diphenhydramine HCl (Benadryl) 25 mg IVP Q4 PRN PRN Reason: Itching / Pruritus Last Admin: 10/09/16 08:12 Dose: 25 mg Epoetin Cornelius (Procrit) 8,000 unit IV MWF [facility] Stop: 10/13/16 09:01 Fentanyl (Duragesic) 1 patch TD Q72H [facility] Last Admin: 10/07/16 19:13 Dose: 1 patch Heparin Sodium (Porcine) (Heparin) 5,000 units SC Q12 [facility] Last Admin: 10/08/16 21:27 Dose: Not Given Hydralazine HCl (Apresoline) 100 mg PO Q8 [facility] Last Admin: 10/09/16 06:45 Dose: 100 mg Hydromorphone HCl (Dilaudid) 0.5 mg IVP Q4H PRN PRN Reason: Pain, moderate (4-7) Last Admin: 10/09/16 08:12 Dose: 0.5 mg Metoclopramide HCl (Reglan) 10 mg PO AC [facility] Last Admin: 10/09/16 06:45 Dose: 10 mg Minoxidil (Minoxidil) 5 mg PO DAILY [facility] Last Admin: 10/09/16 09:44 Dose: Not Given Nifedipine (Procardia Xl) 90 mg PO DAILY [facility] Last Admin: 10/09/16 09:44 Dose: Not Given Pantoprazole Sodium (Protonix Ec Tab) 40 mg PO DAILY [facility] Last Admin: 10/08/16 09:17 Dose: 40 mg Rosuvastatin Calcium (Crestor) 2.5 mg PO HS [facility] Last Admin: 10/08/16 21:26 Dose: 2.5 mg Timolol Maleate (Timoptic 0.25% Oph [facility]) 1 drop OD BID [facility] Last Admin: 10/08/16 18:06 Dose: 1 drop Vitamin B Complex/Vit C/Folic Acid (Nephro-Anjelica) 1 tab PO DAILY [facility] Last Admin: 10/08/16 09:17 Dose: 1 tab - Labs Labs: 10/09/16 09:30 10/09/16 09:30 - Respiratory Exam Respiratory Exam: NORMAL BREATHING PATTERN Additional comments: Lungs clear - Cardiovascular Exam Cardiovascular Exam: REGULAR RHYTHM - GI/Abdominal Exam GI & Abdominal Exam: Soft - Extremities Exam Additional comments: No edema Assessment and Plan - Assessment and Plan (Free Text) Assessment: ESRD Pulmonary edema resolved had extra dialysis on [facility] HTN BP is now well controlled Anemia To receive one unit PRBC with dialysis today. IDDM Plan: Increase Epogen to 10,000 u Cannot receive Iron because of iron overload
--- NOTE | 2016-10-09 11:53 | CP.PCM.CON ---
History of Present Illness - History of Present Illness History of Present Illness: 40-year-old female, PMHx includes Anemia, Depression, Diabetes, Gastritis, Hypertension, Hypercholesterolemia, Pneumonia, End Stage Renal Disease ( Dialysis M-W-F), presents to the emergency department with complaints of right- lower back pain since 10/04, that is worse since yesterday. Patient discharged 10/05 for acute exacerbation of chronic abdominal pain. Patient states "I was never picked up yesterday for mu HD." Last HD on 10/04. Denies shortness of breath or chest pain. CO PERSIST R LBP SINCE 10/04, WORSE SINCE YEST. DC 10/05 FOR ACUTE EXAC CHRONIC ABD PAIN, ESRD. PS "I WAS NEVER PICKED UP YESTERDAY FOR MY HD", LAST HD 10/04. DENIES SOB, CP. EXAM MOD DIST NONTOXIC NARD BACK LIMITED ROM +SPASM R LOWER BACK NEURO IN TACT Review of Systems - Constitutional Constitutional: As Per HPI, Fever - EENT Eyes: absent: As Per HPI, Blind Spots, Blurred Vision, Change in Vision, Decreased Night Vision, Diplopia, Discharge, Dry Eye, Exophthalmos, Floaters, Irritation, Itchy Eyes, Loss of Peripheral Vision, Pain, Photophobia, Requires Corrective Lenses, Sees Flashes, Spots in Vision, Tunnel Vision, Other Visual Disturbances, Loss of Vision, Other Ears: absent: As Per HPI, Decreased Hearing, Ear Discharge, Ear Pain, Tinnitus, Abnormal Hearing, Disequilibrium, Dizziness, Other Nose/Mouth/Throat: absent: As Per HPI, Epistaxis, Nasal Congestion, Nasal Discharge, Nasal Obstruction, Nasal Trauma, Nose Pain, Post Nasal Drip, Sinus Pain, Sinus Pressure, Bleeding Gums, Change in Voice, Dental Pain, Dry Mouth, Dysphagia, Halitosis, Hoarsness, Lip Swelling, Mouth Lesions, Mouth Pain, Odynophagia, Sore Throat, Throat Swelling, Tongue Swelling, Facial Pain, Neck Pain, Neck Mass, Other - Breasts Breasts: absent: As Per HPI, Change in Shape, Mass, Pain, Nipple Discharge, Nipple Inversion, Skin Changes, Swelling, Other - Cardiovascular Cardiovascular: absent: As Per HPI, Acrocyanosis, Chest Pain, Chest Pain at Rest , Chest Pain with Activity, Claudication, Diaphoresis, Dyspnea, Dyspnea on Exertion, Edema, Irregular Heart Rhythm, Pain Radiating to Arm/Neck/Jaw, Leg Edema, Leg Ulcers, Lightheadedness, Orthopnea, Palpitations, Paroxysmal Nocturnal Dyspnea, Pedal Edema, Radiating Pain, Rapid Heart Rate, Slow Heart Rate, Syncope, Other - Respiratory Respiratory: absent: As Per HPI, Cough, Dyspnea, Hemoptysis, Dyspnea on Exertion , Wheezing, Snoring, Stridor, Pain on Inspiration, Chest Congestion, Excessive Mucous Production, Change in Mucous Color, Pain with Coughing, Other - Gastrointestinal Gastrointestinal: absent: As Per HPI, Abdominal Pain, Belching, Bloating, Change in Bowel Habits, Change in Stool Character, Coffee Ground Emesis, Constipation, Cramping, Diarrhea, Dyspepsia, Dysphagia, Early Satiety, Excessive Flatus, Fecal Incontinence, Heartburn, Hematemesis, Hematochezia, Loose Stools, Melena, Nausea, Odynophagia, Temesmus, Vomiting, Other - Genitourinary Genitourinary: absent: As Per HPI, Change in Urinary Stream, Difficulty Urinating, Dysuria, Flank Pain, Hematuria, Pyuria, Nocturia, Urinary Incontinence, Urinary Frequency, Urinary Hesitance, Urinary Urgency, Voiding Freq/Small Amts, Freq UTI, Hx Renal/Bladder Calculi, Hx /Renal Surgery, Bladder Distension, Other - Reproductive: Female Reproductive:Female: absent: As Per HPI, Amenorrhea, Amenorrhea/ Control, Currently Menstual, Cycle <21 Days, Cycle >35 Days, Cycle Variable, Menses 1-7 Days, Menses >/= 8 Days, Menses Variable, Cycle > 4 Weeks Between, No Menses for 6 Months, Heavy Menses, Light Menses, Normal Menses, Spotting Between Cycles , S/P Hysterectomy, Menopausal, Post Menopausal, Premenarche, Abnormal Vaginal Bleeding, Dysmenorrhea, Dyspareunia, Genital Lesions, Genital Pruritis, Pelvic Pain, Prolapse Symptoms, Sexual Dysfunction, Vaginal Discharge, Vaginal Dryness , Vaginal Odor, Vaginal Pruritis, Other - Menstruation Menstruation: absent: As Per HPI, Amenorrhea, Amenorrhea/ Control, Currently Menstual, Cycle <21 Days, Cycle >35 Days, Cycle Variable, Menses 1-7 Days, Menses >/= 8 Days, Menses Variable, Cycle > 4 Weeks Between, No Menses for 6 Months, Heavy Menses, Light Menses, Normal Menses, Spotting Between Cycles , S/P Hysterectomy, Menopausal, Post Menopausal, Premenarche, Abnormal Vaginal Bleeding, Dysmenorrhea, Other - Musculoskeletal Musculoskeletal: absent: As Per HPI, Abnormal Gait, Arthralgias, Atrophy, Back Pain, Deformity, Joint Swelling, Limited Range of Motion, Loss of Height, Muscle Cramps, Muscle Weakness, Myalgias, Neck Pain, Numbness, Radiating Pain into Limb, Stiffness, Tingling, Other - Integumentary Integumentary: As Per HPI - Neurological Neurological: absent: As Per HPI, Abnormal Gait, Abnormal Hearing, Abnormal Movements, Abnormal Speech, Behavioral Changes, Burning Sensations, Confusion, Convulsions, Disequilibrium, Dizziness, Numbness, Focal Weakness, Frequent Falls , Headaches, Lack of Coordination, Loss of Vision, Memory Loss, Paresthesias, Radicular Pain, Restless Legs, Sensory Deficit, Syncope, Tingling, Tremor, Vertigo, Weakness, Other Visual Disturbances, Other - Psychiatric Psychiatric: absent: As Per HPI, Abnormal Sleep Pattern, Anhedonia, Anxiety, Auditory Hallucinations, Behavioral Changes, Change in Appetite, Change in Libido, Confusion, Depression, Difficulty Concentrating, Hallucinations, Homicidal Ideation, Hopelessness, Irritability, Memory Loss, Mood Swings, Panic Attacks, Paranoia, Suicidal Ideation, Visual Hallucinations, Tactile Hallucinations, Other - Endocrine Endocrine: absent: As Per HPI, Change in Body Appearance, Change in Libido, Cold Intolorance, Deepening of Voice, Excessive Sweating, Fatigue, Flushing, Heat Intolorance, Increase in Ring/Shoe/Hat Size, Palpitations, Polydipsia, Polyphagia, Polyuria, Other - Hematologic/Lymphatic Hematologic: absent: As Per HPI, Easy Bleeding, Easy Bruising, Lymphadenopathy, Other Past Patient History - Infectious Disease Hx of Infectious Diseases: None - Past Medical History & Family History Past Medical History?: Yes - Past Social History Smoking Status: Former Smoker - CARDIAC Hx Hypercholesterolemia: Yes Hx Hypertension: Yes - PULMONARY Hx Pneumonia: Yes - HEENT Hx HEENT Problems: Yes Hx Cataracts: Yes (09/23/14 left) - RENAL Hx Chronic Kidney Disease: Yes - ENDOCRINE/METABOLIC Hx Endocrine Disorders: Yes Hx Diabetes Mellitus Type 2: Yes - HEMATOLOGICAL/ONCOLOGICAL Hx Anemia: Yes - INTEGUMENTARY Hx Dermatological Problems: Yes Other/Comment: right great toe amputation - MUSCULOSKELETAL/RHEUMATOLOGICAL Hx Falls: Yes - GASTROINTESTINAL Hx Gastritis: Yes (diabetic gastroparesis) - GENITOURINARY/GYNECOLOGICAL Hx Genitourinary Disorders: Yes Other/Comment: renal failure - PSYCHIATRIC Hx Depression: Yes Hx Substance Use: No - SURGICAL HISTORY Hx Cholecystectomy: Yes - ANESTHESIA Hx Anesthesia: Yes Hx Anesthesia Reactions: No Hx Malignant Hyperthermia: No Meds Allergies/Adverse Reactions: Allergies Allergy/AdvReac Type Severity Reaction Status Date / Time ketorolac tromethamine Allergy Verified 10/02/16 06:15 [From Toradol] morphine Allergy Verified 10/02/16 06:15 tramadol Allergy RASH Verified 10/07/16 10:07 - Medications Medications: Current Medications Calcium Acetate (Phoslo) 667 mg PO TIDCC [facility] Last Admin: 10/09/16 08:13 Dose: 667 mg Carvedilol (Coreg) 25 mg PO BID [facility] Last Admin: 10/09/16 09:43 Dose: Not Given Clonidine HCl (Catapres-Tts3 0.3 Mg/24 Hr) 1 patch TD Q7D@1000 [facility] Last Admin: 10/08/16 11:04 Dose: 1 patch Diphenhydramine HCl (Benadryl) 25 mg IVP Q4 PRN PRN Reason: Itching / Pruritus Last Admin: 10/09/16 08:12 Dose: 25 mg Epoetin Cornelius (Procrit) 10,000 unit IV MWF [facility] Fentanyl (Duragesic) 1 patch TD Q72H [facility] Last Admin: 10/07/16 19:13 Dose: 1 patch Heparin Sodium (Porcine) (Heparin) 5,000 units SC Q12 [facility] Last Admin: 10/08/16 21:27 Dose: Not Given Heparin Sodium (Porcine) (Heparin) 1,000 units IVP F [facility] Hydralazine HCl (Apresoline) 100 mg PO Q8 [facility] Last Admin: 10/09/16 06:45 Dose: 100 mg Hydromorphone HCl (Dilaudid) 0.5 mg IVP Q4H PRN PRN Reason: Pain, moderate (4-7) Last Admin: 10/09/16 08:12 Dose: 0.5 mg Metoclopramide HCl (Reglan) 10 mg PO AC [facility] Last Admin: 10/09/16 06:45 Dose: 10 mg Minoxidil (Minoxidil) 5 mg PO DAILY [facility] Last Admin: 10/09/16 09:44 Dose: Not Given Nifedipine (Procardia Xl) 90 mg PO DAILY [facility] Last Admin: 10/09/16 09:44 Dose: Not Given Pantoprazole Sodium (Protonix Ec Tab) 40 mg PO DAILY [facility] Last Admin: 10/08/16 09:17 Dose: 40 mg Rosuvastatin Calcium (Crestor) 2.5 mg PO HS [facility] Last Admin: 10/08/16 21:26 Dose: 2.5 mg Timolol Maleate (Timoptic 0.25% Ophth Soln) 1 drop OD BID [facility] Last Admin: 10/08/16 18:06 Dose: 1 drop Vitamin B Complex/Vit C/Folic Acid (Nephro-Anjelica) 1 tab PO DAILY [facility] Last Admin: 10/08/16 09:17 Dose: 1 tab Physical Exam - Constitutional Appears: Non-toxic, Chronically Ill - Head Exam Head Exam: NORMOCEPHALIC - Eye Exam Eye Exam: PERRL. absent: Scleral icterus - ENT Exam ENT Exam: Mucous Membranes Dry, Normal External Ear Exam - Neck Exam Neck exam: Negative for: Lymphadenopathy - Respiratory Exam Respiratory Exam: Decreased Breath Sounds, Rhonchi - Cardiovascular Exam Cardiovascular Exam: REGULAR RHYTHM, +S1, +S2 - GI/Abdominal Exam GI & Abdominal Exam: Diminished Bowel Sounds, Soft. absent: Tenderness - Rectal Exam Rectal Exam: Deferred - Exam Exam: NORMAL INSPECTION - Extremities Exam Extremities exam: Positive for: pedal edema, tenderness, pedal pulses present. Negative for: calf tenderness Additional comments: + wound to left heel - Back Exam Back exam: absent: CVA tenderness (L), CVA tenderness (R) - Neurological Exam Neurological exam: Alert, CN II-XII Intact, Oriented x3, Reflexes Normal - Psychiatric Exam Psychiatric exam: Normal Affect, Normal Mood - Skin Skin Exam: Dry, Intact Results - Vital Signs Recent Vital Signs: Last Vital Signs Temp 98.4 F 10/09/16 09:15 Pulse 78 10/09/16 09:15 Resp 17 10/09/16 09:15 BP 160/78 H 10/09/16 11:15 Pulse Ox 100 10/09/16 09:15 - Labs Result Diagrams: 10/11/16 09:29 10/11/16 09:29 Labs: Laboratory Results - last 24 hr 10/08/16 10/08/16 10/09/16 11:56 21:49 06:45 WBC RBC Hgb Hct MCV MCH MCHC RDW Plt Count MPV Neut % (Auto) Lymph % (Auto) [place] % (Auto) Eos % (Auto) Baso % (Auto) Neut # Lymph # [place] # Eos # Baso # Sodium Potassium Chloride Carbon Dioxide Anion Gap BUN Creatinine Est GFR ( Amer) Est GFR (Non-Af Amer) POC Glucose (mg/dL) 106 130 H 132 H Random Glucose Calcium Blood Type Antibody Screen 10/09/16 10/09/16 10/09/16 09:30 09:30 10:21 WBC 7.6 RBC 2.40 L Hgb 7.3 L Hct 22.1 L MCV 92.0 MCH 30.5 MCHC 33.2 RDW 16.7 H Plt Count 163 MPV 8.6 Neut % (Auto) 68.2 Lymph % (Auto) 17.0 L [place] % (Auto) 6.1 Eos % (Auto) 7.5 H Baso % (Auto) 1.2 Neut # 5.2 Lymph # 1.3 [place] # 0.5 Eos # 0.6 Baso # 0.1 Sodium 134 Potassium 6.0 H Chloride 94 L Carbon Dioxide 28 Anion Gap 18 BUN 52 H Creatinine 6.9 H Est GFR ( Amer) 8 Est GFR (Non-Af Amer) 7 POC Glucose (mg/dL) Random Glucose 120 H Calcium 8.3 L Blood Type O POSITIVE Antibody Screen Negative Assessment & Plan (1) ESRD on hemodialysis Status: Acute (2) Osteomyelitis of ankle or foot Status: Acute - Assessment and Plan (Free Text) Assessment: cont iv rx for 6 weeks may need further debridement weekly podiatry follow up
[2016-10-09] MEDS: Epoetin Alfa 10,000 unit/ml Dialysis IV SCH (12:07)
[2016-10-09] MEDS: Pantoprazole 40 mg EC Tab PO SCH (13:36)
[2016-10-09] MEDS: Multivitamin Vitamin B Complex (Nephro-Vite) Tab PO SCH (14:01)
[2016-10-09] MEDS: Piperacill/Tazo 2.25gm in Dex 2.25 GM/50 ML BAG IVPB SCH (15:51)
--- NOTE | 2016-10-09 17:51 | CP.PCM.PCO ---
Physician Communication Note - Physician Communication Note Physician Communication Note: transfuse one unit with next dialysis
[2016-10-09] MEDS: Rosuvastatin Calcium 2.5 mg Tab PO SCH (21:43)
[2016-10-10] MEDS: DiphenhydrAMINE 50 mg/ml Inj IVP PRN ×5 (01:44→22:10)
[2016-10-10] MEDS: HYDROmorphone 0.5 mg/0.5 ml ISec IVP PRN ×6 (01:44→22:11)
[2016-10-10] MEDS: Piperacill/Tazo 2.25gm in Dex 2.25 GM/50 ML BAG IVPB SCH ×2 (02:18→16:31)
--- NOTE | 2016-10-10 10:37 | CP.PCM.PN ---
Subjective - Date & Time of Evaluation Date of Evaluation: 10/10/16 Time of Evaluation: 10:36 - Subjective Subjective: 40 y/o female patient seen and evaluated at bedside for left heel chronic osteomyelitis. Patient states that she does not feel good today due to back pain. Patient's left foot dressing intact, clean and dry. Patient was wearing Prevlon boot. Patient denies any symptoms of N/V/F/SOB/Chest pain. Objective - Vital Signs/Intake and Output Vital Signs (last 24 hours): Temp Pulse Resp BP Pulse Ox 99.3 F 84 20 187/90 H 97 10/10/16 08:00 10/10/16 08:00 10/10/16 08:00 10/10/16 08:00 10/10/16 08:00 Intake and Output: 10/10/16 10/10/16 06:59 18:59 Intake Total 290 Balance 290 - Medications Medications: Current Medications Calcium Acetate (Phoslo) 667 mg PO TIDCC [facility] Last Admin: 10/10/16 10:02 Dose: 667 mg Carvedilol (Coreg) 25 mg PO BID [facility] Last Admin: 10/09/16 17:03 Dose: 25 mg Clonidine HCl (Catapres-Tts3 0.3 Mg/24 Hr) 1 patch TD Q7D@1000 [facility] Last Admin: 10/08/16 11:04 Dose: 1 patch Diphenhydramine HCl (Benadryl) 25 mg IVP Q4 PRN PRN Reason: Itching / Pruritus Last Admin: 10/10/16 05:49 Dose: 25 mg Epoetin Cornelius (Procrit) 10,000 unit IV [facility] Last Admin: 10/09/16 12:07 Dose: 10,000 unit Fentanyl (Duragesic) 1 patch TD Q72H [facility] Last Admin: 10/07/16 19:13 Dose: 1 patch Heparin Sodium (Porcine) (Heparin) 5,000 units SC Q12 [facility] Last Admin: 10/09/16 22:15 Dose: Not Given Heparin Sodium (Porcine) (Heparin) 1,000 units IVP [facility] Hydralazine HCl (Apresoline) 100 mg PO Q8 [facility] Last Admin: 10/10/16 05:50 Dose: 100 mg Hydromorphone HCl (Dilaudid) 0.5 mg IVP Q4H PRN PRN Reason: Pain, moderate (4-7) Last Admin: 10/10/16 09:57 Dose: 0.5 mg Vancomycin HCl 1 gm/ Sodium (Chloride) 250 mls @ 166.7 mls/hr IVPB Q24H [facility] Last Admin: 10/09/16 13:57 Dose: 166.7 mls/hr Piperacillin Sod/Tazobactam Sod (Zosyn 2.25 Gm Iv Premix) 2.25 gm in 50 mls @ 100 mls/hr IVPB Q12H [facility] Last Admin: 10/10/16 02:18 Dose: 100 mls/hr Metoclopramide HCl (Reglan) 10 mg PO AC [facility] Last Admin: 10/09/16 21:57 Dose: Not Given Minoxidil (Minoxidil) 5 mg PO DAILY [facility] Last Admin: 10/09/16 09:44 Dose: Not Given Nifedipine (Procardia Xl) 90 mg PO DAILY [facility] Last Admin: 10/09/16 13:37 Dose: 90 mg Pantoprazole Sodium (Protonix Ec Tab) 40 mg PO DAILY [facility] Last Admin: 10/09/16 13:36 Dose: 40 mg Rosuvastatin Calcium (Crestor) 2.5 mg PO HS [facility] Last Admin: 10/09/16 21:43 Dose: 2.5 mg Timolol Maleate (Timoptic 0.25% [facility]) 1 drop OD BID [facility] Last Admin: 10/09/16 17:04 Dose: 1 drop Vitamin B Complex/Vit C/Folic Acid (Nephro-Anjelica) 1 tab PO DAILY [facility] Last Admin: 10/09/16 14:01 Dose: 1 tab - Labs Labs: 10/09/16 09:30 10/09/16 09:30 - Constitutional Appears: Non-toxic, No Acute Distress - Extremities Exam Additional comments: DERMATOLOGIC: Left heel ulceration with hyperkeratotic tissue overlying, there is slightly macerated area medially which was debrided, revealing pus formation underneath. No erythema, no streaking. Serous drainage present. Positive malodor. VASCULAR: DP/PT pulses 2/4, ENLISTED ADVISOR<3 seconds, skin temperature normal, mild edema of the left foot NEUROLOGIC: Protective sensation decreased ORTHOPEDIC: Pain on palpation to the left heel. There is abduction deformity of the left foot with external rotation of the ankle, limb length discrepency on the left side. 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 - Neurological Exam Neurological Exam: Alert, Awake - Psychiatric Exam Psychiatric exam: Normal Mood Assessment and Plan - Assessment and Plan (Free Text) Assessment: 40 year old female with chronic left heel ulceration, history of OM Plan: atient seen and evaluated at bedside All the questions and concerns were addressed Left x ray was reviewed-left calcaneus cortical erosion and signs of osteomyelitis Continue IV abx treatment as per ID ( Fredo Ambriz) Wound cx result is pending Left foot dressing was changed with Xeroform, and DSD Advised patient to wear Prevlon boot when she remains in the bed Wound cx: Klebsiella and coag Neg Staph Discussed with attending Dr. Bran Podiatry will continue to follow while patient remains in house.
[2016-10-10] MEDS: Multivitamin Vitamin B Complex (Nephro-Vite) Tab PO SCH (11:39)
[2016-10-10] MEDS: NIFEdipine 90 mg ER Tab PO SCH (11:39)
[2016-10-10] MEDS: Pantoprazole 40 mg EC Tab PO SCH (11:40)
--- NOTE | 2016-10-10 12:09 | CP.PCM.PN ---
Subjective - Date & Time of Evaluation Date of Evaluation: 10/10/16 Time of Evaluation: 09:00 - Subjective Subjective: iv rx reordered wounds noted consider mri may need or debridement Objective - Vital Signs/Intake and Output Vital Signs (last 24 hours): Temp Pulse Resp BP Pulse Ox 99.3 F 84 20 187/90 H 97 10/10/16 08:00 10/10/16 08:00 10/10/16 08:00 10/10/16 08:00 10/10/16 08:00 Intake and Output: 10/10/16 10/10/16 06:59 18:59 Intake Total 290 Balance 290 - Medications Medications: Current Medications Calcium Acetate (Phoslo) 667 mg PO TIDCC [facility] Last Admin: 10/10/16 10:02 Dose: 667 mg Carvedilol (Coreg) 25 mg PO BID [facility] Last Admin: 10/09/16 17:03 Dose: 25 mg Clonidine HCl (Catapres-Tts3 0.3 Mg/24 Hr) 1 patch TD Q7D@1000 [facility] Last Admin: 10/08/16 11:04 Dose: 1 patch Diphenhydramine HCl (Benadryl) 25 mg IVP Q4 PRN PRN Reason: Itching / Pruritus Last Admin: 10/10/16 05:49 Dose: 25 mg Epoetin Cornelius (Procrit) 10,000 unit IV MWF [facility] Last Admin: 10/09/16 12:07 Dose: 10,000 unit Fentanyl (Duragesic) 1 patch TD Q72H [facility] Last Admin: 10/07/16 19:13 Dose: 1 patch Heparin Sodium (Porcine) (Heparin) 5,000 units SC Q12 [facility] Last Admin: 10/10/16 11:38 Dose: 5,000 units Heparin Sodium (Porcine) (Heparin) 1,000 units IVP MWF [facility] Hydralazine HCl (Apresoline) 100 mg PO Q8 [facility] Last Admin: 10/10/16 05:50 Dose: 100 mg Hydromorphone HCl (Dilaudid) 0.5 mg IVP Q4H PRN PRN Reason: Pain, moderate (4-7) Last Admin: 10/10/16 09:57 Dose: 0.5 mg Vancomycin HCl 1 gm/ Sodium (Chloride) 250 mls @ 166.7 mls/hr IVPB Q24H [facility] Last Admin: 10/09/16 13:57 Dose: 166.7 mls/hr Piperacillin Sod/Tazobactam Sod (Zosyn 2.25 Gm Iv Premix) 2.25 gm in 50 mls @ 100 mls/hr IVPB Q12H [facility] Last Admin: 10/10/16 02:18 Dose: 100 mls/hr Metoclopramide HCl (Reglan) 10 mg PO AC [facility] Last Admin: 10/10/16 11:40 Dose: 10 mg Minoxidil (Minoxidil) 5 mg PO DAILY [facility] Last Admin: 10/10/16 11:38 Dose: 5 mg Nifedipine (Procardia Xl) 90 mg PO DAILY [facility] Last Admin: 10/10/16 11:39 Dose: 90 mg Pantoprazole Sodium (Protonix Ec Tab) 40 mg PO DAILY [facility] Last Admin: 10/10/16 11:40 Dose: 40 mg Rosuvastatin Calcium (Crestor) 2.5 mg PO HS [facility] Last Admin: 10/09/16 21:43 Dose: 2.5 mg Timolol Maleate (Timoptic 0.25% Oph Soln) 1 drop OD BID [facility] Last Admin: 10/09/16 17:04 Dose: 1 drop Vitamin B Complex/Vit C/Folic Acid (Nephro-Anjelica) 1 tab PO DAILY [facility] Last Admin: 10/10/16 11:39 Dose: 1 tab - Labs Labs: 10/09/16 09:30 10/09/16 09:30 - Constitutional Appears: Non-toxic, Chronically Ill - Head Exam Head Exam: NORMOCEPHALIC - Eye Exam Eye Exam: PERRL. absent: Scleral icterus - ENT Exam ENT Exam: Mucous Membranes Dry - Neck Exam Neck Exam: absent: Lymphadenopathy - Respiratory Exam Respiratory Exam: Decreased Breath Sounds - Cardiovascular Exam Cardiovascular Exam: REGULAR RHYTHM - GI/Abdominal Exam GI & Abdominal Exam: Distended, Soft - Rectal Exam Rectal Exam: Deferred - Exam Exam: NORMAL INSPECTION - Extremities Exam Extremities Exam: Pedal Edema - Back Exam Back Exam: absent: CVA tenderness (L), CVA tenderness (R) - Neurological Exam Neurological Exam: Alert, Awake Assessment and Plan - Assessment and Plan (Free Text) Plan: r/o om dm pvd cont rx
[2016-10-10] MEDS: Timolol 0.25% Ophth SOLN OD SCH ×2 (12:18→18:06)
--- NOTE | 2016-10-10 12:59 | CP.PCM.PN ---
Subjective - Date & Time of Evaluation Date of Evaluation: 10/09/16 Time of Evaluation: 21:45 - Subjective Subjective: Pt seen and examined, on wound care, remains nauseaous, continue reglan Objective - Vital Signs/Intake and Output Vital Signs (last 24 hours): Temp Pulse Resp BP Pulse Ox 99.3 F 84 20 130/72 97 10/10/16 08:00 10/10/16 08:00 10/10/16 08:00 10/10/16 12:15 10/10/16 08:00 Intake and Output: 10/10/16 10/10/16 06:59 18:59 Intake Total 290 600 Balance 290 600 - Medications Medications: Current Medications Calcium Acetate (Phoslo) 667 mg PO TIDCC [facility] Last Admin: 10/10/16 12:15 Dose: 667 mg Carvedilol (Coreg) 25 mg PO BID [facility] Last Admin: 10/10/16 12:15 Dose: 25 mg Clonidine HCl (Catapres-Tts3 0.3 Mg/24 Hr) 1 patch TD Q7D@1000 [facility] Last Admin: 10/08/16 11:04 Dose: 1 patch Diphenhydramine HCl (Benadryl) 25 mg IVP Q4 PRN PRN Reason: Itching / Pruritus Last Admin: 10/10/16 05:49 Dose: 25 mg Epoetin Cornelius (Procrit) 10,000 unit IV F [facility] Last Admin: 10/09/16 12:07 Dose: 10,000 unit Fentanyl (Duragesic) 1 patch TD Q72H [facility] Last Admin: 10/07/16 19:13 Dose: 1 patch Heparin Sodium (Porcine) (Heparin) 5,000 units SC Q12 [facility] Last Admin: 10/10/16 11:38 Dose: 5,000 units Heparin Sodium (Porcine) (Heparin) 1,000 units IVP MWF [facility] Hydralazine HCl (Apresoline) 100 mg PO Q8 [facility] Last Admin: 10/10/16 05:50 Dose: 100 mg Hydromorphone HCl (Dilaudid) 0.5 mg IVP Q4H PRN PRN Reason: Pain, moderate (4-7) Last Admin: 10/10/16 09:57 Dose: 0.5 mg Vancomycin HCl 1 gm/ Sodium (Chloride) 250 mls @ 166.7 mls/hr IVPB Q24H [facility] Last Admin: 10/10/16 12:16 Dose: 166.7 mls/hr Piperacillin Sod/Tazobactam Sod (Zosyn 2.25 Gm Iv Premix) 2.25 gm in 50 mls @ 100 mls/hr IVPB Q12H [facility] Last Admin: 10/10/16 02:18 Dose: 100 mls/hr Metoclopramide HCl (Reglan) 10 mg PO AC [facility] Last Admin: 10/10/16 11:40 Dose: 10 mg Minoxidil (Minoxidil) 5 mg PO DAILY [facility] Last Admin: 10/10/16 11:38 Dose: 5 mg Nifedipine (Procardia Xl) 90 mg PO DAILY [facility] Last Admin: 10/10/16 11:39 Dose: 90 mg Pantoprazole Sodium (Protonix Ec Tab) 40 mg PO DAILY [facility] Last Admin: 10/10/16 11:40 Dose: 40 mg Rosuvastatin Calcium (Crestor) 2.5 mg PO HS [facility] Last Admin: 10/09/16 21:43 Dose: 2.5 mg Timolol Maleate (Timoptic 0.25% Oph Soln) 1 drop OD BID [facility] Last Admin: 10/10/16 12:18 Dose: 1 drop Vitamin B Complex/Vit C/Folic Acid (Nephro-Anjelica) 1 tab PO DAILY [facility] Last Admin: 10/10/16 11:39 Dose: 1 tab - Labs Labs: 10/09/16 09:30 10/09/16 09:30 - Constitutional Appears: No Acute Distress - Head Exam Head Exam: ATRAUMATIC, NORMAL INSPECTION, NORMOCEPHALIC - Eye Exam Eye Exam: EOMI, Normal appearance, PERRL Pupil Exam: NORMAL ACCOMODATION, PERRL - ENT Exam ENT Exam: Mucous Membranes Moist, Normal Exam - Respiratory Exam Respiratory Exam: Clear to Ausculation Bilateral, NORMAL BREATHING PATTERN - Cardiovascular Exam Cardiovascular Exam: REGULAR RHYTHM, +S1, +S2. absent: Murmur - GI/Abdominal Exam GI & Abdominal Exam: Soft, Normal Bowel Sounds. absent: Tenderness - Neurological Exam Neurological Exam: Alert, Awake, CN II-XII Intact, Normal Gait, Oriented x3 - Psychiatric Exam Psychiatric exam: Normal Affect, Normal Mood - Skin Skin Exam: Erythema, Rash, Vesicles Assessment and Plan (1) ESRD on hemodialysis Status: Acute (2) Abdominal pain with vomiting Status: Acute (3) Diabetic foot ulcer Status: Acute (4) ESRD needing dialysis Status: Acute
--- NOTE | 2016-10-10 12:59 | CP.PCM.PN ---
Subjective - Date & Time of Evaluation Date of Evaluation: 10/10/16 Time of Evaluation: 08:50 - Subjective Subjective: Pt seen and examained this morning, c/o being nauseous at toimes, is on antibiotics, left foot ulcer under podiatry care Objective - Vital Signs/Intake and Output Vital Signs (last 24 hours): Temp Pulse Resp BP Pulse Ox 99.3 F 84 20 130/72 97 10/10/16 08:00 10/10/16 08:00 10/10/16 08:00 10/10/16 12:15 10/10/16 08:00 Intake and Output: 10/10/16 10/10/16 06:59 18:59 Intake Total 290 600 Balance 290 600 - Medications Medications: Current Medications Calcium Acetate (Phoslo) 667 mg PO TIDCC [facility] Last Admin: 10/10/16 12:15 Dose: 667 mg Carvedilol (Coreg) 25 mg PO BID [facility] Last Admin: 10/10/16 12:15 Dose: 25 mg Clonidine HCl (Catapres-Tts3 0.3 Mg/24 Hr) 1 patch TD Q7D@1000 [facility] Last Admin: 10/08/16 11:04 Dose: 1 patch Diphenhydramine HCl (Benadryl) 25 mg IVP Q4 PRN PRN Reason: Itching / Pruritus Last Admin: 10/10/16 05:49 Dose: 25 mg Epoetin Cornelius ([facility]crit) [facility] Last Admin: 10/09/16 12:07 Dose: 10,000 unit Fentanyl (Duragesic) 1 patch TD Q72H [facility] Last Admin: 10/07/16 19:13 Dose: 1 patch Heparin Sodium (Porcine) (Heparin) 5,000 units SC Q12 [facility] Last Admin: 10/10/16 11:38 Dose: 5,000 units Heparin Sodium (Porcine) (Heparin) 1,000 units IVP [facility] [place] Hydralazine HCl (Apresoline) 100 mg PO Q8 [facility] Last Admin: 10/10/16 05:50 Dose: 100 mg Hydromorphone HCl (Dilaudid) 0.5 mg IVP Q4H PRN PRN Reason: Pain, moderate (4-7) Last Admin: 10/10/16 09:57 Dose: 0.5 mg Vancomycin HCl 1 gm/ Sodium (Chloride) 250 mls @ 166.7 mls/hr IVPB Q24H [facility] Last Admin: 10/10/16 12:16 Dose: 166.7 mls/hr Piperacillin Sod/Tazobactam Sod (Zosyn 2.25 Gm Iv Premix) 2.25 gm in 50 mls @ 100 mls/hr IVPB Q12H [facility] Last Admin: 10/10/16 02:18 Dose: 100 mls/hr Metoclopramide HCl (Reglan) 10 mg PO AC [facility] Last Admin: 10/10/16 11:40 Dose: 10 mg Minoxidil (Minoxidil) 5 mg PO DAILY [facility] Last Admin: 10/10/16 11:38 Dose: 5 mg Nifedipine (Procardia Xl) 90 mg PO DAILY [facility] Last Admin: 10/10/16 11:39 Dose: 90 mg Pantoprazole Sodium (Protonix Ec Tab) 40 mg PO DAILY [facility] Last Admin: 10/10/16 11:40 Dose: 40 mg Rosuvastatin Calcium (Crestor) 2.5 mg PO HS [facility] Last Admin: 10/09/16 21:43 Dose: 2.5 mg Timolol Maleate (Timoptic 0.25% Ophth Soln) 1 drop OD BID [facility] Last Admin: 10/10/16 12:18 Dose: 1 drop Vitamin B Complex/Vit C/Folic Acid (Nephro-Anjelica) 1 tab PO DAILY [facility] Last Admin: 10/10/16 11:39 Dose: 1 tab - Labs Labs: 10/09/16 09:30 10/09/16 09:30 - Constitutional Appears: No Acute Distress - Head Exam Head Exam: ATRAUMATIC, NORMAL INSPECTION, NORMOCEPHALIC - Eye Exam Eye Exam: EOMI, Normal appearance, PERRL Pupil Exam: NORMAL ACCOMODATION, PERRL - ENT Exam ENT Exam: Mucous Membranes Moist, Normal Exam - Respiratory Exam Respiratory Exam: Clear to Ausculation Bilateral, NORMAL BREATHING PATTERN - Cardiovascular Exam Cardiovascular Exam: REGULAR RHYTHM, +S1, +S2. absent: Murmur - GI/Abdominal Exam GI & Abdominal Exam: Soft, Normal Bowel Sounds. absent: Tenderness Assessment and Plan (1) ESRD on hemodialysis Status: Acute (2) Abdominal pain with vomiting Status: Acute (3) Chronic ulcer of left foot Status: Acute (4) Diabetic foot ulcer Status: Acute (5) DM2 (diabetes mellitus, type 2) Status: Chronic (6) Diabetic gastroparesis Status: Chronic (7) Hypertension Status: Chronic
--- NOTE | 2016-10-10 13:08 | CP.PCM.PN ---
Subjective - Date & Time of Evaluation Date of Evaluation: 10/10/16 Time of Evaluation: 11:45 - Subjective Subjective: Sitting up in bed & eating lunch Feels nauseous from Abx Objective - Vital Signs/Intake and Output Vital Signs (last 24 hours): Temp Pulse Resp BP Pulse Ox 99.3 F 84 20 130/72 97 10/10/16 08:00 10/10/16 08:00 10/10/16 08:00 10/10/16 12:15 10/10/16 08:00 Intake and Output: 10/10/16 10/10/16 06:59 18:59 Intake Total 290 600 Balance 290 600 - Medications Medications: Current Medications Calcium Acetate (Phoslo) 667 mg PO TIDCC [facility] Last Admin: 10/10/16 12:15 Dose: 667 mg Carvedilol (Coreg) 25 mg PO BID [facility] Last Admin: 10/10/16 12:15 Dose: 25 mg Clonidine HCl (Catapres-Tts3 0.3 Mg/24 Hr) 1 patch TD Q7D@1000 [facility] Last Admin: 10/08/16 11:04 Dose: 1 patch Diphenhydramine HCl (Benadryl) 25 mg IVP Q4 PRN PRN Reason: Itching / Pruritus Last Admin: 10/10/16 05:49 Dose: 25 mg Epoetin Cornelius (Procrit) 10,000 unit IV MWF [facility] Last Admin: 10/09/16 12:07 Dose: 10,000 unit Fentanyl (Duragesic) 1 patch TD Q72H [facility] Last Admin: 10/07/16 19:13 Dose: 1 patch Heparin Sodium (Porcine) (Heparin) 5,000 units SC Q12 [facility] Last Admin: 10/10/16 11:38 Dose: 5,000 units Heparin Sodium (Porcine) (Heparin) 1,000 units IVP MWF [facility] Hydralazine HCl (Apresoline) 100 mg PO Q8 [facility] Last Admin: 10/10/16 05:50 Dose: 100 mg Hydromorphone HCl (Dilaudid) 0.5 mg IVP Q4H PRN PRN Reason: Pain, moderate (4-7) Last Admin: 10/10/16 09:57 Dose: 0.5 mg Vancomycin HCl 1 gm/ Sodium (Chloride) 250 mls @ 166.7 mls/hr IVPB Q24H [facility] Last Admin: 10/10/16 12:16 Dose: 166.7 mls/hr Piperacillin Sod/Tazobactam Sod (Zosyn 2.25 Gm Iv Premix) 2.25 gm in 50 mls @ 100 mls/hr IVPB Q12H [facility] Last Admin: 10/10/16 02:18 Dose: 100 mls/hr Metoclopramide HCl (Reglan) 10 mg PO AC [facility] Last Admin: 10/10/16 11:40 Dose: 10 mg Minoxidil (Minoxidil) 5 mg PO DAILY [facility] Last Admin: 10/10/16 11:38 Dose: 5 mg Nifedipine (Procardia Xl) 90 mg PO DAILY [facility] Last Admin: 10/10/16 11:39 Dose: 90 mg Pantoprazole Sodium (Protonix Ec Tab) 40 mg PO DAILY [facility] Last Admin: 10/10/16 11:40 Dose: 40 mg Rosuvastatin Calcium (Crestor) 2.5 mg PO HS [facility] Last Admin: 10/09/16 21:43 Dose: 2.5 mg Timolol Maleate (Timoptic 0.25% Oph Soln) 1 drop OD BID [facility] Last Admin: 10/10/16 12:18 Dose: 1 drop Vitamin B Complex/Vit C/Folic Acid (Nephro-Anjelica) 1 tab PO DAILY [facility] Last Admin: 10/10/16 11:39 Dose: 1 tab - Labs Labs: 10/09/16 09:30 10/09/16 09:30 - Respiratory Exam Additional comments: Lungs clear - Cardiovascular Exam Cardiovascular Exam: REGULAR RHYTHM - Extremities Exam Additional comments: Lt heel dressed Assessment and Plan - Assessment and Plan (Free Text) Assessment: ESRD on HD HTN IDDM Lt foot infected ulcer . Culture shows Kleb. oxytoca Plan: HD per schedule Abx per mrdical team
[2016-10-10] MEDS: Rosuvastatin Calcium 2.5 mg Tab PO SCH (21:25)
[2016-10-11] MEDS: HYDROmorphone 0.5 mg/0.5 ml ISec IVP PRN ×5 (02:17→20:55)
[2016-10-11] MEDS: DiphenhydrAMINE 50 mg/ml Inj IVP PRN ×5 (02:19→20:55)
[2016-10-11] MEDS: Piperacill/Tazo 2.25gm in Dex 2.25 GM/50 ML BAG IVPB SCH ×3 (02:19→16:08)
[2016-10-11] MEDS: Epoetin Alfa 10,000 unit/ml Dialysis IV SCH (09:24)
[2016-10-11 09:33] LABS: HEMATOCRIT 25.3 % (34.0-47.0)
[2016-10-11 09:52] LABS: POTASSIUM 5.4 mmol/L (3.6-5.2)
[2016-10-11] MEDS: Multivitamin Vitamin B Complex (Nephro-Vite) Tab PO SCH ×2 (09:54→13:18)
[2016-10-11] MEDS: NIFEdipine 90 mg ER Tab PO SCH ×2 (09:54→13:18)
[2016-10-11] MEDS: Timolol 0.25% Ophth SOLN OD SCH ×2 (09:54→18:13)
[2016-10-11] MEDS: Pantoprazole 40 mg EC Tab PO SCH ×2 (09:54→13:17)
[2016-10-11 09:55] LABS: CALCIUM 8.4 mg/dl (8.6-10.4)
--- NOTE | 2016-10-11 15:07 | MRI ---
MRI left hindfoot History: Ulceration. Evaluate for osteomyelitis. Comparison: None available. Technique: Multi-echo multiplanar sequences were performed through the left hindfoot without the use of intravenous contrast. Findings: Large ulcer seen overlying the posterior calcaneus. Prominent signal abnormality within the posterior calcaneus demonstrating decreased T1 signal with increased STIR signal consistent with an acute osteomyelitis. Focal increased signal seen at the undersurface of the distal Achilles tendon measuring 2.6 millimeters approximately 1 centimeter from its insertion on the posterior calcaneus suggestive for a partial articular surface tear of the distal Achilles tendon. No gross full-thickness defect or tendon retraction. Thickening of the plantar fascia at its insertion on the inferior calcaneus suggestive for a plantar fasciitis with associated edema extending into the plantar sided musculature. Sinus tarsi is preserved. Trace ankle joint effusion. Degenerative changes noted at the talonavicular joint space dorsally with bony spurring and bony hypertrophy. Anterior extensor tendons are preserved. Mild tenosynovitis of the posterior tibial tendon sheath. Remainder of the medial flexor tendons are preserved. Mild tenosynovitis of the peroneal tendons. Anterior and posterior tibiofibular ligaments are preserved. Low to moderate grade sprain of the anterior talofibular ligament. Posterior talofibular ligament is preserved. Reticulation and edema seen within the dorsal subcutaneous soft tissues. Some fraying with increased signal seen within the deep fibers of deltoid ligament suggestive for a moderate grade sprain with some interstitial delamination. Impression: 1. Large ulcer seen overlying the posterior calcaneus. Prominent signal abnormality within the posterior calcaneus demonstrating decreased T1 signal with increased STIR signal consistent with an acute osteomyelitis. 2. Focal increased signal seen at the undersurface of the distal Achilles tendon measuring 2.6 millimeters approximately 1 centimeter from its insertion on the posterior calcaneus suggestive for a partial articular surface tear of the distal Achilles tendon. No gross full-thickness defect or tendon retraction. 3. Thickening of the plantar fascia at its insertion on the inferior calcaneus suggestive for a plantar fasciitis with associated edema extending into the plantar sided musculature. 4. Trace ankle joint effusion. 5. Degenerative changes noted at the talonavicular joint space dorsally with bony spurring and bony hypertrophy. 6. Mild tenosynovitis of the posterior tibial tendon sheath. Remainder of the medial flexor tendons are preserved. 7. Mild tenosynovitis of the peroneal tendons. 8. Low to moderate grade sprain of the anterior talofibular ligament. 9. Reticulation and edema seen within the dorsal subcutaneous soft tissues. 10. Some fraying with increased signal seen within the deep fibers of deltoid ligament suggestive for a moderate grade sprain with some interstitial delamination.
--- NOTE | 2016-10-11 15:22 | CP.PCM.PN ---
Subjective - Date & Time of Evaluation Date of Evaluation: 10/11/16 Time of Evaluation: 03:00 - Subjective Subjective: C/o severe spasms over lower back. Could not sleep well last night Objective - Vital Signs/Intake and Output Vital Signs (last 24 hours): Temp Pulse Resp BP Pulse Ox 98.5 F 86 18 149/72 100 10/11/16 12:25 10/11/16 12:25 10/11/16 12:25 10/11/16 12:25 10/11/16 12:25 Intake and Output: 10/11/16 10/11/16 06:59 18:59 Intake Total 490 500 Balance 490 500 - Medications Medications: Current Medications Calcium Acetate (Phoslo) 667 mg PO TIDCC [facility] Last Admin: 10/11/16 13:17 Dose: 667 mg Carvedilol (Coreg) 25 mg PO BID [facility] Last Admin: 10/11/16 09:53 Dose: Not Given Clonidine HCl (Catapres-Tts3 0.3 Mg/24 Hr) 1 patch TD Q7D@1000 [facility] Last Admin: 10/08/16 11:04 Dose: 1 patch Diphenhydramine HCl (Benadryl) 25 mg IVP Q4 PRN PRN Reason: Itching / Pruritus Last Admin: 10/11/16 13:05 Dose: 25 mg Epoetin Cornelius (Procrit) 10,000 unit IV [facility] [place] Last Admin: 10/11/16 09:24 Dose: 10,000 unit Heparin Sodium (Porcine) (Heparin) 1,000 units IVP [facility] [place] Last Admin: 10/11/16 09:21 Dose: 1,000 units Hydralazine HCl (Apresoline) 100 mg PO Q8 [facility] Last Admin: 10/11/16 13:18 Dose: 100 mg Hydromorphone HCl (Dilaudid) 0.5 mg IVP Q4H PRN PRN Reason: Pain, moderate (4-7) Last Admin: 10/11/16 12:59 Dose: 0.5 mg Vancomycin HCl 1 gm/ Sodium (Chloride) 250 mls @ 166.7 mls/hr IVPB Q24H [facility] Last Admin: 10/11/16 13:21 Dose: 166.7 mls/hr Piperacillin Sod/Tazobactam Sod (Zosyn 2.25 Gm Iv Premix) 2.25 gm in 50 mls @ 100 mls/hr IVPB Q12H [facility] Last Admin: 10/11/16 13:22 Dose: 100 mls/hr Metoclopramide HCl (Reglan) 10 mg PO AC [facility] Last Admin: 10/11/16 13:18 Dose: 10 mg Minoxidil (Minoxidil) 5 mg PO DAILY [facility] Last Admin: 10/11/16 13:18 Dose: 5 mg Nifedipine (Procardia Xl) 90 mg PO DAILY [facility] Last Admin: 10/11/16 13:18 Dose: 90 mg Pantoprazole Sodium (Protonix Ec Tab) 40 mg PO DAILY [facility] Last Admin: 10/11/16 13:17 Dose: 40 mg Rosuvastatin Calcium (Crestor) 2.5 mg PO HS [facility] Last Admin: 10/10/16 21:25 Dose: 2.5 mg Timolol Maleate (Timoptic 0.25% Ophth Soln) 1 drop OD BID [facility] Last Admin: 10/11/16 09:54 Dose: Not Given Vitamin B Complex/Vit C/Folic Acid (Nephro-Anjelica) 1 tab PO DAILY [facility] Last Admin: 10/11/16 13:18 Dose: 1 tab - Labs Labs: 10/11/16 09:29 10/11/16 09:29 - Respiratory Exam Additional comments: Lungs clear - Cardiovascular Exam Cardiovascular Exam: REGULAR RHYTHM - Extremities Exam Additional comments: no edema - Back Exam Additional comments: Tenderness over L5-S1 area Assessment and Plan - Assessment and Plan (Free Text) Assessment: ESRD on HD Anemia Back pain HTN IDDM Plan: Dialysis was tolerated well today Will order XR of L/S spine Voltaren gel
--- NOTE | 2016-10-11 19:01 | CP.PCM.PN ---
Subjective - Date & Time of Evaluation Date of Evaluation: 10/11/16 Time of Evaluation: 09:00 - Subjective Subjective: 40 y/o female patient seen and evaluated at bedside for left heel chronic osteomyelitis Objective - Vital Signs/Intake and Output Vital Signs (last 24 hours): Temp Pulse Resp BP Pulse Ox 99.5 F 94 H 20 127/72 99 10/11/16 15:53 10/11/16 15:53 10/11/16 15:53 10/11/16 18:12 10/11/16 15:53 Intake and Output: 10/11/16 10/11/16 06:59 18:59 Intake Total 490 500 Balance 490 500 - Medications Medications: Current Medications Calcium Acetate (Phoslo) 667 mg PO TIDCC [facility] Last Admin: 10/11/16 16:52 Dose: 667 mg Carvedilol (Coreg) 25 mg PO BID [facility] Last Admin: 10/11/16 18:12 Dose: 25 mg Clonidine HCl (Catapres-Tts3 0.3 Mg/24 Hr) 1 patch TD Q7D@1000 [facility] Last Admin: 10/08/16 11:04 Dose: 1 patch Diphenhydramine HCl (Benadryl) 25 mg IVP Q4 PRN PRN Reason: Itching / Pruritus Last Admin: 10/11/16 16:50 Dose: 25 mg Epoetin Cornelius (Procrit) 10,000 unit IV [facility] [place] Last Admin: 10/11/16 09:24 Dose: 10,000 unit Heparin Sodium (Porcine) (Heparin) 1,000 units IVP [facility] [place] Last Admin: 10/11/16 09:21 Dose: 1,000 units Hydralazine HCl (Apresoline) 100 mg PO Q8 [facility] Last Admin: 10/11/16 13:18 Dose: 100 mg Hydromorphone HCl (Dilaudid) 0.5 mg IVP Q4H PRN PRN Reason: Pain, moderate (4-7) Last Admin: 10/11/16 16:42 Dose: 0.5 mg Vancomycin HCl 500 mg/ Sodium (Chloride) 100 mls @ 100 mls/hr [facility] Cefepime HCl (Maxipime Iv 1 Gm Premix) 1 gm in 50 mls @ 100 mls/hr IVPB Q24H [facility] Lidocaine (Lidoderm) 1 ea TD DAILY [facility] Metoclopramide HCl (Reglan) 10 mg PO AC [facility] Last Admin: 10/11/16 16:52 Dose: 10 mg Minoxidil (Minoxidil) 5 mg PO DAILY [facility] Last Admin: 10/11/16 13:18 Dose: 5 mg Nifedipine (Procardia Xl) 90 mg PO DAILY [facility] Last Admin: 10/11/16 13:18 Dose: 90 mg Pantoprazole Sodium (Protonix Ec Tab) 40 mg PO DAILY [facility] Last Admin: 10/11/16 13:17 Dose: 40 mg Rosuvastatin Calcium (Crestor) 2.5 mg PO HS [facility] Last Admin: 10/10/16 21:25 Dose: 2.5 mg Timolol Maleate (Timoptic 0.25% Oph Soln) 1 drop OD BID [facility] Last Admin: 10/11/16 18:13 Dose: 1 drop Vitamin B Complex/Vit C/Folic Acid (Nephro-Anjelica) 1 tab PO DAILY [facility] Last Admin: 10/11/16 13:18 Dose: 1 tab - Labs Labs: 10/11/16 09:29 10/11/16 09:29 - Constitutional Appears: Non-toxic - Head Exam Head Exam: NORMOCEPHALIC - Eye Exam Eye Exam: absent: Scleral icterus - ENT Exam ENT Exam: Mucous Membranes Dry - Neck Exam Neck Exam: absent: Lymphadenopathy - Respiratory Exam Respiratory Exam: Decreased Breath Sounds, Rhonchi - Cardiovascular Exam Cardiovascular Exam: REGULAR RHYTHM - GI/Abdominal Exam GI & Abdominal Exam: Distended, Soft - Rectal Exam Rectal Exam: Deferred Assessment and Plan (1) Osteomyelitis of ankle or foot Status: Acute (2) Osteomyelitis of ankle or foot Status: Acute (3) ESRD on hemodialysis Status: Acute - Assessment and Plan (Free Text) Assessment: cont iv rxfor 6-8 weeks
[2016-10-11] MEDS: Cefepime IV 1 gm in Dextrose 1 GM/50 ML BAG IVPB SCH (19:30)
[2016-10-11] MEDS: Rosuvastatin Calcium 2.5 mg Tab PO SCH (21:02)
[2016-10-12] MEDS ORDERED: HYDROmorphone 0.5 mg/0.5 ml ISec IVP STA ×2 (01:07→05:35)
[2016-10-12] MEDS: DiphenhydrAMINE 50 mg/ml Inj IVP PRN ×5 (01:24→22:24)
--- NOTE | 2016-10-12 04:37 | CP.PCM.PN ---
Subjective - Date & Time of Evaluation Date of Evaluation: 10/11/16 Time of Evaluation: 19:00 - Subjective Subjective: Pt seen & evaluated, has osteomyelitis of foot and she is for 6 weeks of antibiotics treatment for which she needs to be transferred to sub acute rehab for which she agrees Objective - Vital Signs/Intake and Output Vital Signs (last 24 hours): Temp Pulse Resp BP Pulse Ox 99 F 87 20 100/62 100 10/12/16 00:00 10/12/16 00:00 10/12/16 00:00 10/12/16 00:00 10/12/16 00:00 Intake and Output: 10/11/16 10/12/16 18:59 06:59 Intake Total 500 Balance 500 - Medications Medications: Current Medications Calcium Acetate (Phoslo) 667 mg PO TIDCC [facility] Last Admin: 10/11/16 16:52 Dose: 667 mg Carvedilol (Coreg) 25 mg PO BID [facility] Last Admin: 10/11/16 18:12 Dose: 25 mg Clonidine HCl (Catapres-Tts3 0.3 Mg/24 Hr) 1 patch TD Q7D@1000 [facility] Last Admin: 10/08/16 11:04 Dose: 1 patch Diphenhydramine HCl (Benadryl) 25 mg IVP Q4 PRN PRN Reason: Itching / Pruritus Last Admin: 10/12/16 01:24 Dose: 25 mg Epoetin Cornelius (Procrit) 10,000 unit IV [facility] [place] Last Admin: 10/11/16 09:24 Dose: 10,000 unit Heparin Sodium (Porcine) (Heparin) 1,000 units IVP [facility] [place] Last Admin: 10/11/16 09:21 Dose: 1,000 units Hydralazine HCl (Apresoline) 100 mg PO Q8 [facility] Last Admin: 10/11/16 21:03 Dose: 100 mg Vancomycin HCl 500 mg/ Sodium (Chloride) 100 mls @ 100 mls/hr IVPB [facility] [place] Cefepime HCl (Maxipime Iv 1 Gm Premix) 1 gm in 50 mls @ 100 mls/hr IVPB Q24H [facility] Last Admin: 10/11/16 19:30 Dose: 100 mls/hr Lidocaine (Lidoderm) 1 ea TD DAILY [facility] Metoclopramide HCl (Reglan) 10 mg PO AC [facility] Last Admin: 10/11/16 16:52 Dose: 10 mg Minoxidil (Minoxidil) 5 mg PO DAILY [facility] Last Admin: 10/11/16 13:18 Dose: 5 mg Nifedipine (Procardia Xl) 90 mg PO DAILY [facility] Last Admin: 10/11/16 13:18 Dose: 90 mg Pantoprazole Sodium (Protonix Ec Tab) 40 mg PO DAILY [facility] Last Admin: 10/11/16 13:17 Dose: 40 mg Rosuvastatin Calcium (Crestor) 2.5 mg PO HS [facility] Last Admin: 10/11/16 21:02 Dose: 2.5 mg Timolol Maleate (Timoptic 0.25% Ophth Soln) 1 drop OD BID [facility] Last Admin: 10/11/16 18:13 Dose: 1 drop Vitamin B Complex/Vit C/Folic Acid (Nephro-Anjelica) 1 tab PO DAILY [facility] Last Admin: 10/11/16 13:18 Dose: 1 tab - Labs Labs: 10/11/16 09:29 10/11/16 09:29 - Constitutional Appears: No Acute Distress - Head Exam Head Exam: ATRAUMATIC, NORMAL INSPECTION, NORMOCEPHALIC - Eye Exam Eye Exam: EOMI, Normal appearance, PERRL Pupil Exam: NORMAL ACCOMODATION, PERRL - ENT Exam ENT Exam: Mucous Membranes Moist - Respiratory Exam Respiratory Exam: Clear to Ausculation Bilateral, NORMAL BREATHING PATTERN - Cardiovascular Exam Cardiovascular Exam: REGULAR RHYTHM, +S1, +S2. absent: Murmur - GI/Abdominal Exam GI & Abdominal Exam: Soft, Normal Bowel Sounds. absent: Tenderness Assessment and Plan (1) ESRD on hemodialysis Status: Acute (2) Abdominal pain with vomiting Status: Acute (3) Chronic ulcer of left foot Status: Acute (4) Diabetic foot ulcer Status: Acute (5) DM2 (diabetes mellitus, type 2) Status: Chronic (6) Diabetic gastroparesis Status: Chronic (7) Hypertension Status: Chronic
[2016-10-12] MEDS ORDERED: HYDROmorphone 0.5 mg/0.5 ml ISec IVP PRN (09:42)
[2016-10-12] MEDS: Multivitamin Vitamin B Complex (Nephro-Vite) Tab PO SCH (10:23)
[2016-10-12] MEDS: Pantoprazole 40 mg EC Tab PO SCH ×2 (10:24→12:40)
[2016-10-12] MEDS: NIFEdipine 90 mg ER Tab PO SCH (10:24)
[2016-10-12] MEDS: Timolol 0.25% Ophth SOLN OD SCH ×2 (10:25→19:14)
[2016-10-12] MEDS: Lidocaine 5% Patch TD SCH (10:26)
--- NOTE | 2016-10-12 11:47 | CP.PCM.PN ---
Subjective - Date & Time of Evaluation Date of Evaluation: 10/12/16 Time of Evaluation: 11:43 - Subjective Subjective: 41 y/o female seen bedside for chronic OM secondary to left heel ulceration. Pt appears in NAD and is AAOx3. Pt denies of any F/C/SOB but agrees to vomiting overnight. Pt states that she is not tolerating the abx that she is receiving well and is making her vomit. Pt denies of any acute events overnight. Pt states that her dressing was just changed by the nurse. Pt's dressing appears clean, dry and intact. Objective - Vital Signs/Intake and Output Vital Signs (last 24 hours): Temp Pulse Resp BP Pulse Ox 98 F 80 20 123/77 97 10/12/16 08:00 10/12/16 08:00 10/12/16 08:00 10/12/16 08:00 10/12/16 08:00 - Medications Medications: Current Medications Calcium Acetate (Phoslo) 667 mg PO TIDCC [facility] Last Admin: 10/12/16 08:24 Dose: Not Given Carvedilol (Coreg) 25 mg PO BID [facility] Last Admin: 10/12/16 10:23 Dose: Not Given Clonidine HCl (Catapres-Tts3 0.3 Mg/24 Hr) 1 patch TD Q7D@1000 [facility] Last Admin: 10/08/16 11:04 Dose: 1 patch Diphenhydramine HCl (Benadryl) 25 mg IVP Q4 PRN PRN Reason: Itching / Pruritus Last Admin: 10/12/16 10:22 Dose: 25 mg Epoetin Cornelius (Procrit) 10,000 unit [place] [facility] [place] Last Admin: 10/11/16 09:24 Dose: 10,000 unit Heparin Sodium (Porcine) (Heparin) 1,000 units IVP F [facility] Last Admin: 10/11/16 09:21 Dose: 1,000 units Hydralazine HCl (Apresoline) 100 mg PO Q8 [facility] Last Admin: 10/12/16 06:00 Dose: Not Given Hydromorphone HCl (Dilaudid) 0.5 mg IVP Q4H PRN PRN Reason: Pain, Mild (1-3) Last Admin: 10/12/16 10:10 Dose: 0.5 mg Vancomycin HCl 500 mg/ Sodium (Chloride) 100 mls @ 100 mls/hr IVPB MWF [facility] Cefepime HCl (Maxipime Iv 1 Gm Premix) 1 gm in 50 mls @ 100 mls/hr IVPB Q24H [facility] Last Admin: 10/11/16 19:30 Dose: 100 mls/hr Lidocaine (Lidoderm) 1 ea TD DAILY [facility] Last Admin: 10/12/16 10:26 Dose: 1 ea Metoclopramide HCl (Reglan) 10 mg PO AC [facility] Last Admin: 10/12/16 08:25 Dose: Not Given Minoxidil (Minoxidil) 5 mg PO DAILY [facility] Last Admin: 10/12/16 10:23 Dose: Not Given Nifedipine (Procardia Xl) 90 mg PO DAILY [facility] Last Admin: 10/12/16 10:24 Dose: Not Given Pantoprazole Sodium (Protonix Ec Tab) 40 mg PO DAILY [facility] Last Admin: 10/12/16 10:24 Dose: Not Given Rosuvastatin Calcium (Crestor) 2.5 mg PO HS [facility] Last Admin: 10/11/16 21:02 Dose: 2.5 mg Timolol Maleate (Timoptic 0.25% Ophth Soln) 1 drop OD BID [facility] Last Admin: 10/12/16 10:25 Dose: 1 drop Vitamin B Complex/Vit C/Folic Acid (Nephro-Anjelica) 1 tab PO DAILY [facility] Last Admin: 10/12/16 10:23 Dose: Not Given - Labs Labs: 10/11/16 09:29 10/11/16 09:29 - Constitutional Appears: Well, Non-toxic, No Acute Distress - Extremities Exam Additional comments: Left foot focused: Pt's dressing is intact, dry and clean. there is no strike through noted through the dressing. No malodor present. Pt's offloading boot is intact - Neurological Exam Neurological Exam: Alert, Awake, Oriented x3 Assessment and Plan - Assessment and Plan (Free Text) Assessment: 41 y/o female seen bedside for chronic OM secondary to left foot ulceration Plan: Pt evaluated and chart reviewed All the questions and concerns were addressed Pt discussed with attending Dr. Bran Pt to continue IV abx as per ID (6-8 weeks) Possible to be discharged to Rehab Labs and vitals reviewed Podiatry to follow pt while in-house
--- NOTE | 2016-10-12 12:24 | CP.PCM.PN ---
Subjective - Date & Time of Evaluation Date of Evaluation: 10/12/16 Time of Evaluation: 12:00 - Subjective Subjective: Sitting up in bed & eating lunch Feels better today Objective - Vital Signs/Intake and Output Vital Signs (last 24 hours): Temp Pulse Resp BP Pulse Ox 98 F 80 20 123/77 97 10/12/16 08:00 10/12/16 08:00 10/12/16 08:00 10/12/16 08:00 10/12/16 08:00 - Medications Medications: Current Medications Calcium Acetate (Phoslo) 667 mg PO TIDCC [facility] Last Admin: 10/12/16 11:43 Dose: Not Given Carvedilol (Coreg) 25 mg PO BID [facility] Last Admin: 10/12/16 10:23 Dose: Not Given Clonidine HCl (Catapres-Tts3 0.3 Mg/24 Hr) 1 patch TD Q7D@1000 [facility] Last Admin: 10/08/16 11:04 Dose: 1 patch Diphenhydramine HCl (Benadryl) 25 mg IVP Q4 PRN PRN Reason: Itching / Pruritus Last Admin: 10/12/16 10:22 Dose: 25 mg Epoetin Cornelius (Procrit) 10,000 unit IV [facility] Last Admin: 10/11/16 09:24 Dose: 10,000 unit Heparin Sodium (Porcine) (Heparin) 1,000 units IVP [facility] Last Admin: 10/11/16 09:21 Dose: 1,000 units Hydralazine HCl (Apresoline) 100 mg PO Q8 [facility] Last Admin: 10/12/16 06:00 Dose: Not Given Hydromorphone HCl (Dilaudid) 0.5 mg IVP Q4H PRN PRN Reason: Pain, Mild (1-3) Last Admin: 10/12/16 10:10 Dose: 0.5 mg Vancomycin HCl 500 mg/ Sodium (Chloride) 100 mls @ 100 mls/hr IVPB [facility] Cefepime HCl (Maxipime Iv 1 Gm Premix) 1 gm in 50 mls @ 100 mls/hr IVPB Q24H [facility] Last Admin: 10/11/16 19:30 Dose: 100 mls/hr Lidocaine (Lidoderm) 1 ea TD DAILY [facility] Last Admin: 10/12/16 10:26 Dose: 1 ea Metoclopramide HCl (Reglan) 10 mg PO AC [facility] Last Admin: 10/12/16 11:43 Dose: Not Given Minoxidil (Minoxidil) 5 mg PO DAILY [facility] Last Admin: 10/12/16 10:23 Dose: Not Given Nifedipine (Procardia Xl) 90 mg PO DAILY [facility] Last Admin: 10/12/16 10:24 Dose: Not Given Pantoprazole Sodium (Protonix Ec Tab) 40 mg PO DAILY [facility] Last Admin: 10/12/16 10:24 Dose: Not Given Rosuvastatin Calcium (Crestor) 2.5 mg PO HS [facility] Last Admin: 10/11/16 21:02 Dose: 2.5 mg Timolol Maleate (Timoptic 0.25% [facility]) 1 drop OD BID [facility] Last Admin: 10/12/16 10:25 Dose: 1 drop Vitamin B Complex/Vit C/Folic Acid (Nephro-Anjelica) 1 tab PO DAILY [facility] Last Admin: 10/12/16 10:23 Dose: Not Given - Labs Labs: 10/11/16 09:29 10/11/16 09:29 - Respiratory Exam Additional comments: Lungs clear - Cardiovascular Exam Cardiovascular Exam: REGULAR RHYTHM - Extremities Exam Additional comments: No edema Assessment and Plan - Assessment and Plan (Free Text) Assessment: ESRD on HD Anemia Lt foot OM IDDM Plan: For dialysis tomprrow Labs ordered Abx per ID
--- NOTE | 2016-10-12 12:35 | US ---
Date of procedure: 10/12/2016 Procedure: Ultrasound guidance for vascular access HISTORY: Infection requiring long-term IV antibiotics TECHNIQUE: Following informed consent and procedure time-out, the patient placed supine on the interventional table and the right arm prepped and draped in the usual sterile fashion. Ultrasound showed a patent and compressible basilic vein. After the skin was anesthetized with lidocaine, the basilic vein was accessed with micro micropuncture technique using ultrasound guidance. An image documenting ultrasound guidance for vascular access was permanently saved. IMPRESSION: Ultrasound guidance for vascular access for placement of PICC.
[2016-10-12] MEDS: HYDROmorphone 1 mg/ml ISec IVP PRN ×3 (14:14→22:19)
[2016-10-12] MEDS: Cefepime IV 1 gm in Dextrose 1 GM/50 ML BAG IVPB SCH (18:27)
[2016-10-12] MEDS: Linezolid 600 mg in D5W 300 ml 600 MG/300 ML BAG IVPB SCH (19:16)
[2016-10-12] MEDS: Rosuvastatin Calcium 2.5 mg Tab PO SCH (22:00)
--- NOTE | 2016-10-12 22:48 | CP.PCM.PN ---
Subjective - Date & Time of Evaluation Date of Evaluation: 10/12/16 Time of Evaluation: 19:30 - Subjective Subjective: Pt seen & evaluated, has osteomyelitis of foot and she is for 6 weeks of antibiotics treatment for which she needs to be transferred to sub acute rehab for which she agrees Objective - Vital Signs/Intake and Output Vital Signs (last 24 hours): Temp Pulse Resp BP Pulse Ox 98.4 F 80 20 119/69 98 10/12/16 15:53 10/12/16 21:59 10/12/16 15:53 10/12/16 21:59 10/12/16 15:53 - Medications Medications: Current Medications Calcium Acetate (Phoslo) 667 mg PO TIDCC [facility] Last Admin: 10/12/16 17:16 Dose: 667 mg Carvedilol (Coreg) 25 mg PO BID [facility] Last Admin: 10/12/16 18:28 Dose: Not Given Clonidine HCl (Catapres-Tts3 0.3 Mg/24 Hr) 1 patch TD Q7D@1000 [facility] Last Admin: 10/08/16 11:04 Dose: 1 patch Diphenhydramine HCl (Benadryl) 25 mg IVP Q4 PRN PRN Reason: Itching / Pruritus Last Admin: 10/12/16 22:24 Dose: 25 mg Epoetin Cornelius (Procrit) 10,000 unit [place] [facility] Last Admin: 10/11/16 09:24 Dose: 10,000 unit Heparin Sodium (Porcine) (Heparin) 1,000 units IVP [facility] Last Admin: 10/11/16 09:21 Dose: 1,000 units Hydralazine HCl (Apresoline) 100 mg PO Q8 [facility] Last Admin: 10/12/16 22:00 Dose: Not Given Hydromorphone HCl (Dilaudid) 1 mg IVP Q4H PRN PRN Reason: Pain, Mild (1-3) Last Admin: 10/12/16 22:19 Dose: 1 mg Cefepime HCl (Maxipime Iv 1 Gm Premix) 1 gm in 50 mls @ 100 mls/hr IVPB Q24H [facility] Last Admin: 10/12/16 18:27 Dose: 100 mls/hr Linezolid (Zyvox 600mg/300ml D5w) 600 mg in 300 mls @ 200 mls/hr IVPB Q12H [facility] Last Admin: 10/12/16 19:16 Dose: 200 mls/hr Lidocaine (Lidoderm) 1 ea TD DAILY [facility] Last Admin: 10/12/16 10:26 Dose: 1 ea Metoclopramide HCl (Reglan) 10 mg PO AC [facility] Last Admin: 10/12/16 17:16 Dose: 10 mg Minoxidil (Minoxidil) 5 mg PO DAILY [facility] Last Admin: 10/12/16 10:23 Dose: Not Given Nifedipine (Procardia Xl) 90 mg PO DAILY [facility] Last Admin: 10/12/16 10:24 Dose: Not Given Pantoprazole Sodium (Protonix Ec Tab) 40 mg PO DAILY [facility] Last Admin: 10/12/16 12:40 Dose: 40 mg Rosuvastatin Calcium (Crestor) 2.5 mg PO HS [facility] Last Admin: 10/12/16 22:00 Dose: 2.5 mg Timolol Maleate (Timoptic 0.25% Oph Soln) 1 drop OD BID [facility] Last Admin: 10/12/16 19:14 Dose: 1 drop Vitamin B Complex/Vit C/Folic Acid (Nephro-Anjelica) 1 tab PO DAILY [facility] Last Admin: 10/12/16 10:23 Dose: Not Given - Labs Labs: 10/11/16 09:29 10/11/16 09:29 - Constitutional Appears: No Acute Distress - Head Exam Head Exam: ATRAUMATIC, NORMAL INSPECTION, NORMOCEPHALIC - Eye Exam Eye Exam: EOMI, Normal appearance, PERRL Pupil Exam: NORMAL ACCOMODATION, PERRL - Respiratory Exam Respiratory Exam: Clear to Ausculation Bilateral, NORMAL BREATHING PATTERN - Cardiovascular Exam Cardiovascular Exam: REGULAR RHYTHM, +S1, +S2. absent: Murmur - GI/Abdominal Exam GI & Abdominal Exam: Soft, Normal Bowel Sounds. absent: Tenderness - Extremities Exam Extremities Exam: Joint Swelling, Tenderness - Skin Skin Exam: Erythema, Rash Assessment and Plan (1) ESRD on hemodialysis Status: Acute (2) Abdominal pain with vomiting Status: Acute (3) Chronic ulcer of left foot Status: Acute (4) Diabetic foot ulcer Status: Acute (5) DM2 (diabetes mellitus, type 2) Status: Chronic (6) Diabetic gastroparesis Status: Chronic (7) Hypertension Status: Chronic
[2016-10-13] MEDS: HYDROmorphone 1 mg/ml ISec IVP PRN ×5 (02:39→19:36)
[2016-10-13] MEDS: DiphenhydrAMINE 50 mg/ml Inj IVP PRN ×5 (02:40→19:36)
[2016-10-13] MEDS: Linezolid 600 mg in D5W 300 ml 600 MG/300 ML BAG IVPB SCH ×2 (06:40→21:39)
[2016-10-13] MEDS: Multivitamin Vitamin B Complex (Nephro-Vite) Tab PO SCH (10:02)
[2016-10-13] MEDS: Timolol 0.25% Ophth SOLN OD SCH (10:03)
[2016-10-13] MEDS: NIFEdipine 90 mg ER Tab PO SCH (10:09)
[2016-10-13] MEDS: Pantoprazole 40 mg EC Tab PO SCH (10:12)
--- NOTE | 2016-10-13 10:12 | CP.PCM.PN ---
Subjective - Date & Time of Evaluation Date of Evaluation: 10/13/16 Time of Evaluation: 10:45 - Subjective Subjective: Pt seen & evaluted at bedside for chronic OM secondary to left heel ulceration. Pt appears in NAD and is AAOx3. Pt denies of any acute events overnight. Patient states that she has severe back pain with spasm. Patient denies any pedal pain today and she feels much better today. Pt's dressing appears clean, dry and intact. Patient denies any symptoms of N/V/F/SOB/Chest pain. Objective - Vital Signs/Intake and Output Vital Signs (last 24 hours): Temp Pulse Resp BP Pulse Ox 98.8 F 79 20 149/60 100 10/13/16 08:10 10/13/16 08:10 10/13/16 08:10 10/13/16 08:10 10/13/16 08:10 Intake and Output: 10/13/16 10/13/16 06:59 18:59 Intake Total 1140 Balance 1140 - Medications Medications: Current Medications Calcium Acetate (Phoslo) 667 mg PO TIDCC [facility] Last Admin: 10/12/16 17:16 Dose: 667 mg Carvedilol (Coreg) 25 mg PO BID [facility] Last Admin: 10/12/16 18:28 Dose: Not Given Clonidine HCl (Catapres-Tts3 0.3 Mg/24 Hr) 1 patch TD Q7D@1000 [facility] Last Admin: 10/08/16 11:04 Dose: 1 patch Diphenhydramine HCl (Benadryl) 25 mg IVP Q4 PRN PRN Reason: Itching / Pruritus Last Admin: 10/13/16 06:38 Dose: 25 mg Epoetin Cornelius (Procrit) 10,000 unit IV MWF [facility] Last Admin: 10/11/16 09:24 Dose: 10,000 unit Heparin Sodium (Porcine) (Heparin) 1,[address] [facility] [place] Last Admin: 10/11/16 09:21 Dose: 1,000 units Hydralazine HCl (Apresoline) 100 mg PO Q8 [facility] Last Admin: 10/12/16 22:00 Dose: Not Given Hydromorphone HCl (Dilaudid) 1 mg IVP Q4H PRN PRN Reason: Pain, Mild (1-3) Last Admin: 10/13/16 06:39 Dose: 1 mg Cefepime HCl (Maxipime Iv 1 Gm Premix) 1 gm in 50 mls @ 100 mls/hr IVPB Q24H [facility] Last Admin: 10/12/16 18:27 Dose: 100 mls/hr Linezolid (Zyvox 600mg/300ml D5w) 600 mg in 300 mls @ 200 mls/hr IVPB Q12H [facility] Last Admin: 10/13/16 06:40 Dose: 200 mls/hr Lidocaine (Lidoderm) 1 ea TD DAILY [facility] Last Admin: 10/12/16 10:26 Dose: 1 ea Metoclopramide HCl (Reglan) 10 mg PO AC [facility] Last Admin: 10/13/16 07:30 Dose: 10 mg Minoxidil (Minoxidil) 5 mg PO DAILY [facility] Last Admin: 10/13/16 10:08 Dose: Not Given Nifedipine (Procardia Xl) 90 mg PO DAILY [facility] Last Admin: 10/13/16 10:09 Dose: Not Given Pantoprazole Sodium (Protonix Ec Tab) 40 mg PO DAILY [facility] Last Admin: 10/12/16 12:40 Dose: 40 mg Rosuvastatin Calcium (Crestor) 2.5 mg PO HS [facility] Last Admin: 10/12/16 22:00 Dose: 2.5 mg Timolol Maleate (Timoptic 0.25% [facility]) 1 drop OD BID [facility] Last Admin: 10/13/16 10:03 Dose: 1 drop Vitamin B Complex/Vit C/Folic Acid (Nephro-Anjelica) 1 tab PO DAILY [facility] Last Admin: 10/13/16 10:02 Dose: 1 tab - Labs Labs: 10/11/16 09:29 10/11/16 09:29 - Constitutional Appears: No Acute Distress - Head Exam Head Exam: ATRAUMATIC, NORMAL INSPECTION, NORMOCEPHALIC - Eye Exam Eye Exam: EOMI, Normal appearance, PERRL Pupil Exam: NORMAL ACCOMODATION, PERRL - ENT Exam ENT Exam: Mucous Membranes Moist, Normal Exam - Respiratory Exam Respiratory Exam: Clear to Ausculation Bilateral, NORMAL BREATHING PATTERN - Cardiovascular Exam Cardiovascular Exam: REGULAR RHYTHM, +S1, +S2. absent: Murmur Assessment and Plan (1) ESRD on hemodialysis Status: Acute (2) Abdominal pain with vomiting Status: Acute (3) Chronic ulcer of left foot Status: Acute (4) Diabetic foot ulcer Status: Acute (5) DM2 (diabetes mellitus, type 2) Status: Chronic (6) Diabetic gastroparesis Status: Chronic (7) Hypertension Status: Chronic
[2016-10-13] MEDS: Lidocaine 5% Patch TD SCH (10:13)
--- NOTE | 2016-10-13 10:57 | CP.PCM.PN ---
Subjective - Date & Time of Evaluation Date of Evaluation: 10/13/16 Time of Evaluation: 10:54 - Subjective Subjective: Follow up Nephrology Consultation: Assessment: End stage renal disease on hemodialysis (MWF) via AVF with hyperkalemia, pulmonary edema and missed HD Anemia, Hyperphosphatemia, Secondary hyperparathyroidism, HTN kidney disease left foot acute osteomyelitis Plan: Will plan for dialysis today as ordered.Continue with Nephrovite 1 tab/day. PRBC as needed for anemia. On EDMAR as epogen 10,000 unit with HD, last Hb 8.2 Continue with phos binders home meds, last phos level 4.2 BP control with meds as ordered. Patient not on RAAS shay as has tendency to miss HD and come with severe hyperkalemia. Glycemic control, Dialysis consistent diet, low K diet Further work up/management for her pain/osteomyelitis as per primary team, ID and podiatry Dose meds/antibiotics for ESRD status. Avoid fleets enema/magnesium based laxatives. she is being planned for 6-8 weeks IV antibiotics. has picc line placed for it. Thanks for allowing me to participate in care of your patient. Will follow patient with you. Please call if any Qs Dr Aurelio Brar Office: [phone] Subjective: noted events overnight. c/o pain abdomen and back pain/spasms Physical Examination: General Appearance:comfortable, in no acute respiratory distress, co-operative . Vitals reviewed and noted as below Lungs: Normal respiratory rate/effort. Breath sounds bilateral equal clear Heart: Normal rate. s1s2 normal. No rub or gallop. Extremities: no edema. No varicose veins. her left foot is dressed Neurological: Patient is awake and oriented to person, place and time. No focal deficit. Strength bilateral appropriate and equal. Abdomen: Abdomen is soft. Bowel sounds +. There is abdominal tenderness out of proportion to exam Access: AVF has Rt arm PICC line Labs/imaging reviewed. Past medical history, past surgical history, family history, social history, allergy reviewed Objective - Vital Signs/Intake and Output Vital Signs (last 24 hours): Temp Pulse Resp BP Pulse Ox 98.8 F 79 20 149/60 100 10/13/16 08:10 10/13/16 08:10 10/13/16 08:10 10/13/16 08:10 10/13/16 08:10 Intake and Output: 10/13/16 10/13/16 06:59 18:59 Intake Total 1140 Balance 1140 - Medications Medications: Current Medications Calcium Acetate (Phoslo) 667 mg PO TIDCC [facility] Last Admin: 10/13/16 08:00 Dose: 667 mg Carvedilol (Coreg) 25 mg PO BID [facility] Last Admin: 10/13/16 10:13 Dose: Not Given Clonidine HCl (Catapres-Tts3 0.3 Mg/24 Hr) 1 patch TD Q7D@1000 [facility] Last Admin: 10/08/16 11:04 Dose: 1 patch Diphenhydramine HCl (Benadryl) 25 mg IVP Q4 PRN PRN Reason: Itching / Pruritus Last Admin: 10/13/16 06:38 Dose: 25 mg Epoetin Cornelius (Procrit) 10,000 unit IV [facility] Last Admin: 10/11/16 09:24 Dose: 10,000 unit Heparin Sodium (Porcine) (Heparin) 1,000 units IVP [facility] Last Admin: 10/11/16 09:21 Dose: 1,000 units Hydralazine HCl (Apresoline) 100 mg PO Q8 [facility] Last Admin: 10/12/16 22:00 Dose: Not Given Hydromorphone HCl (Dilaudid) 1 mg IVP Q4H PRN PRN Reason: Pain, Mild (1-3) Last Admin: 10/13/16 06:39 Dose: 1 mg Cefepime HCl (Maxipime Iv 1 Gm Premix) 1 gm in 50 mls @ 100 mls/hr IVPB Q24H [facility] Last Admin: 10/12/16 18:27 Dose: 100 mls/hr Linezolid (Zyvox 600mg/300ml D5w) 600 mg in 300 mls @ 200 mls/hr IVPB Q12H [facility] Last Admin: 10/13/16 06:40 Dose: 200 mls/hr Lidocaine (Lidoderm) 1 ea TD DAILY [facility] Last Admin: 10/13/16 10:13 Dose: 1 ea Metoclopramide HCl (Reglan) 10 mg PO AC [facility] Last Admin: 10/13/16 07:30 Dose: 10 mg Minoxidil (Minoxidil) 5 mg PO DAILY [facility] Last Admin: 10/13/16 10:08 Dose: Not Given Nifedipine (Procardia Xl) 90 mg PO DAILY [facility] Last Admin: 10/13/16 10:09 Dose: Not Given Pantoprazole Sodium (Protonix Ec Tab) 40 mg PO DAILY [facility] Last Admin: 10/13/16 10:12 Dose: 40 mg Rosuvastatin Calcium (Crestor) 2.5 mg PO HS [facility] Last Admin: 10/12/16 22:00 Dose: 2.5 mg Timolol Maleate (Timoptic 0.25% [facility]) 1 drop OD BID [facility] Last Admin: 10/13/16 10:03 Dose: 1 drop Vitamin B Complex/Vit C/Folic Acid (Nephro-Anjelica) 1 tab PO DAILY [facility] Last Admin: 10/13/16 10:02 Dose: 1 tab - Labs Labs: 10/11/16 09:29 10/11/16 09:29
--- NOTE | 2016-10-13 11:18 | CP.PCM.PN ---
Subjective - Date & Time of Evaluation Date of Evaluation: 10/13/16 Time of Evaluation: 11:14 - Subjective Subjective: 41 y/o female seen bedside for chronic OM secondary to left heel ulceration. Pt appears in NAD and is AAOx3. Pt denies of any acute events overnight. Patient states that she has severe back pain with spasm. Patient denies any pedal pain today and she feels much better today. Pt's dressing appears clean, dry and intact. Patient denies any symptoms of N/V/F/SOB/Chest pain. Objective - Vital Signs/Intake and Output Vital Signs (last 24 hours): Temp Pulse Resp BP Pulse Ox 98.8 F 79 20 149/60 100 10/13/16 08:10 10/13/16 08:10 10/13/16 08:10 10/13/16 08:10 10/13/16 08:10 Intake and Output: 10/13/16 10/13/16 06:59 18:59 Intake Total 1140 Balance 1140 - Medications Medications: Current Medications Calcium Acetate (Phoslo) 667 mg PO TIDCC [facility] Last Admin: 10/13/16 08:00 Dose: 667 mg Carvedilol (Coreg) 25 mg PO BID [facility] Last Admin: 10/13/16 10:13 Dose: Not Given Clonidine HCl (Catapres-Tts3 0.3 Mg/24 Hr) 1 patch TD Q7D@1000 [facility] Last Admin: 10/08/16 11:04 Dose: 1 patch Diphenhydramine HCl (Benadryl) 25 mg IVP Q4 PRN PRN Reason: Itching / Pruritus Last Admin: 10/13/16 06:38 Dose: 25 mg Epoetin Cornelius (Procrit) 10,000 unit IV MWF [facility] Last Admin: 10/11/16 09:24 Dose: 10,000 unit Heparin Sodium (Porcine) (Heparin) 1,000 units IVP [facility] Last Admin: 10/11/16 09:21 Dose: 1,000 units Hydralazine HCl (Apresoline) 100 mg PO Q8 [facility] Last Admin: 10/12/16 22:00 Dose: Not Given Hydromorphone HCl (Dilaudid) 1 mg IVP Q4H PRN PRN Reason: Pain, Mild (1-3) Last Admin: 10/13/16 06:39 Dose: 1 mg Cefepime HCl (Maxipime Iv 1 Gm Premix) 1 gm in 50 mls @ 100 mls/hr IVPB Q24H [facility] Last Admin: 10/12/16 18:27 Dose: 100 mls/hr Linezolid (Zyvox 600mg/300ml D5w) 600 mg in 300 mls @ 200 mls/hr IVPB Q12H [facility] Last Admin: 10/13/16 06:40 Dose: 200 mls/hr Lidocaine (Lidoderm) 1 ea TD DAILY [facility] Last Admin: 10/13/16 10:13 Dose: 1 ea Metoclopramide HCl (Reglan) 10 mg PO AC [facility] Last Admin: 10/13/16 07:30 Dose: 10 mg Minoxidil (Minoxidil) 5 mg PO DAILY [facility] Last Admin: 10/13/16 10:08 Dose: Not Given Nifedipine (Procardia Xl) 90 mg PO DAILY [facility] Last Admin: 10/13/16 10:09 Dose: Not Given Pantoprazole Sodium (Protonix Ec Tab) 40 mg PO DAILY [facility] Last Admin: 10/13/16 10:12 Dose: 40 mg Rosuvastatin Calcium (Crestor) 2.5 mg PO HS [facility] Last Admin: 10/12/16 22:00 Dose: 2.5 mg Timolol Maleate (Timoptic 0.25% [facility]) 1 drop OD BID [facility] Last Admin: 10/13/16 10:03 Dose: 1 drop Vitamin B Complex/Vit C/Folic Acid (Nephro-Anjelica) 1 tab PO DAILY [facility] Last Admin: 10/13/16 10:02 Dose: 1 tab - Labs Labs: 10/11/16 09:29 10/11/16 09:29 - Constitutional Appears: Well, Non-toxic, No Acute Distress - Extremities Exam Additional comments: DERMATOLOGIC: Left heel ulceration with hyperkeratotic tissue overlying, Wound site is macerated, No erythema, no streaking. Serous drainage present. Negative malodor. No signs of acute infection. VASCULAR: DP/PT pulses 2/4, ANALYTICAL STRATEGIST<3 seconds, skin temperature normal, mild edema of the left foot NEUROLOGIC: Protective sensation decreased ORTHOPEDIC: Pain on palpation to the left heel. There is abduction deformity of the left foot with external rotation of the ankle, limb length discrepency on the left side. 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 - Neurological Exam Neurological Exam: Alert, Awake - Psychiatric Exam Psychiatric exam: Normal Affect, Normal Mood Assessment and Plan - Assessment and Plan (Free Text) Assessment: 40 year old female with chronic left heel ulceration, history of OM Plan: atient seen and evaluated at bedside All the questions and concerns were addressed Left x ray was reviewed-left calcaneus cortical erosion and signs of osteomyelitis Continue IV abx treatment as per ID ( Dr. Roque) Left foot dressing was changed with Xeroform, and DSD Wound site is clinically better Advised patient to wear Prevlon boot when she remains in the bed Wound cx: Klebsiella and coag Neg Staph Labs and vitals were reviewed Discussed with attending Dr. Bran Podiatry will continue to follow while patient remains in house.
--- NOTE | 2016-10-13 15:43 | CP.PCM.PN ---
Subjective - Date & Time of Evaluation Date of Evaluation: 10/13/16 Time of Evaluation: 09:00 - Subjective Subjective: events noted iv rx in progress to cont rx for 6 -8 weeks Objective - Vital Signs/Intake and Output Vital Signs (last 24 hours): Temp Pulse Resp BP Pulse Ox 98.8 F 79 20 149/60 100 10/13/16 08:10 10/13/16 08:10 10/13/16 08:10 10/13/16 08:10 10/13/16 08:10 Intake and Output: 10/13/16 10/13/16 06:59 18:59 Intake Total 1140 500 Balance 1140 500 - Medications Medications: Current Medications Calcium Acetate (Phoslo) 667 mg PO TIDCC [facility] Last Admin: 10/13/16 11:22 Dose: 667 mg Carvedilol (Coreg) 25 mg PO BID [facility] Last Admin: 10/13/16 10:13 Dose: Not Given Clonidine HCl (Catapres-Tts3 0.3 Mg/24 Hr) 1 patch TD Q7D@1000 [facility] Last Admin: 10/08/16 11:04 Dose: 1 patch Diphenhydramine HCl (Benadryl) 25 mg IVP Q4 PRN PRN Reason: Itching / Pruritus Last Admin: 10/13/16 14:52 Dose: 25 mg Epoetin Cornelius (Procrit) 10,000 unit IV [facility] [place] Heparin Sodium (Porcine) (Heparin) 1,000 units IVP [facility] [place] Hydralazine HCl (Apresoline) 100 mg PO Q8 [facility] Last Admin: 10/13/16 13:25 Dose: Not Given Hydromorphone HCl (Dilaudid) 1 mg IVP Q4H PRN PRN Reason: Pain, Mild (1-3) Last Admin: 10/13/16 14:47 Dose: 1 mg Cefepime HCl (Maxipime Iv 1 Gm Premix) 1 gm in 50 mls @ 100 mls/hr IVPB Q24H [facility] Last Admin: 10/12/16 18:27 Dose: 100 mls/hr Linezolid (Zyvox 600mg/300ml D5w) 600 mg in 300 mls @ 200 mls/hr IVPB Q12H [facility] Last Admin: 10/13/16 06:40 Dose: 200 mls/hr Lidocaine (Lidoderm) 1 ea TD DAILY [facility] Last Admin: 10/13/16 10:13 Dose: 1 ea Metoclopramide HCl (Reglan) 10 mg PO AC [facility] Last Admin: 10/13/16 11:21 Dose: 10 mg Minoxidil (Minoxidil) 5 mg PO DAILY [facility] Last Admin: 10/13/16 10:08 Dose: Not Given Nifedipine (Procardia Xl) 90 mg PO DAILY [facility] Last Admin: 10/13/16 10:09 Dose: Not Given Pantoprazole Sodium (Protonix Ec Tab) 40 mg PO DAILY [facility] Last Admin: 10/13/16 10:12 Dose: 40 mg Rosuvastatin Calcium (Crestor) 2.5 mg PO HS [facility] Last Admin: 10/12/16 22:00 Dose: 2.5 mg Timolol Maleate (Timoptic 0.25% [facility]) 1 drop OD BID [facility] Last Admin: 10/13/16 10:03 Dose: 1 drop Vitamin B Complex/Vit C/Folic Acid (Nephro-Anjelica) 1 tab PO DAILY [facility] Last Admin: 10/13/16 10:02 Dose: 1 tab - Labs Labs: 10/11/16 09:29 10/11/16 09:29 - Constitutional Appears: Non-toxic - Head Exam Head Exam: NORMOCEPHALIC - Eye Exam Eye Exam: PERRL. absent: Scleral icterus - ENT Exam ENT Exam: Mucous Membranes Dry - Neck Exam Neck Exam: absent: Lymphadenopathy - Respiratory Exam Respiratory Exam: Decreased Breath Sounds, Clear to Ausculation Bilateral - Cardiovascular Exam Cardiovascular Exam: REGULAR RHYTHM - GI/Abdominal Exam GI & Abdominal Exam: Distended, Soft Assessment and Plan (1) ESRD on hemodialysis Status: Acute (2) Osteomyelitis of ankle or foot Status: Acute
[2016-10-13] MEDS ORDERED: Epoetin Alfa 10,000 unit/ml Dialysis IV SCH (15:45)
[2016-10-13 15:55] VITALS: RESP 18
--- NOTE | 2016-10-13 16:25 | CARD ---
APPROVED REPORT EKG Measurement Heart [id number] <Conclusion> Normal sinus rhythm Possible Left atrial enlargement Left axis deviation Pulmonary disease pattern RSR' or QR pattern in V1 suggests right ventricular conduction delay Nonspecific ST/T changes. Abnormal ECG
--- NOTE | 2016-10-13 17:07 | CP.PCM.PN ---
Subjective - Date & Time of Evaluation Date of Evaluation: 10/13/16 Time of Evaluation: 11:00 - Subjective Subjective: no sob or chest pains, NAD. Objective - Vital Signs/Intake and Output Vital Signs (last 24 hours): Temp Pulse Resp BP Pulse Ox 98.2 F 88 18 143/61 98 10/13/16 15:05 10/13/16 15:05 10/13/16 15:05 10/13/16 16:05 10/13/16 15:05 Intake and Output: 10/13/16 10/13/16 06:59 18:59 Intake Total 1140 500 Balance 1140 500 - Medications Medications: Current Medications Calcium Acetate (Phoslo) 667 mg PO TIDCC [facility] [place] Last Admin: 10/13/16 11:22 Dose: 667 mg Carvedilol (Coreg) 25 mg PO BID [facility] Last Admin: 10/13/16 10:13 Dose: Not Given Clonidine HCl (Catapres-Tts3 0.3 Mg/24 Hr) 1 patch TD Q7D@1000 [facility] Last Admin: 10/08/16 11:04 Dose: 1 patch Diphenhydramine HCl (Benadryl) 25 mg IVP Q4 PRN PRN Reason: Itching / Pruritus Last Admin: 10/13/16 14:52 Dose: 25 mg Epoetin Cornelius (Procrit) 10,000 unit IV [facility] [place] Last Admin: 10/13/16 15:45 Dose: 10,000 unit Heparin Sodium (Porcine) (Heparin) 1,000 units IVP F [facility] Last Admin: 10/13/16 15:44 Dose: 1,000 units Hydralazine HCl (Apresoline) 100 mg PO Q8 [facility] Last Admin: 10/13/16 13:25 Dose: Not Given Hydromorphone HCl (Dilaudid) 1 mg IVP Q4H PRN PRN Reason: Pain, Mild (1-3) Last Admin: 10/13/16 14:47 Dose: 1 mg Cefepime HCl (Maxipime Iv 1 Gm Premix) 1 gm in 50 mls @ 100 mls/hr IVPB Q24H [facility] [place] Last Admin: 10/12/16 18:27 Dose: 100 mls/hr Linezolid (Zyvox 600mg/300ml D5w) 600 mg in 300 mls @ 200 mls/hr IVPB Q12H [facility] Last Admin: 10/13/16 06:40 Dose: 200 mls/hr Lidocaine (Lidoderm) 1 ea TD DAILY [facility] [place] Last Admin: 10/13/16 10:13 Dose: 1 ea Metoclopramide HCl (Reglan) 10 mg PO AC [facility] Last Admin: 10/13/16 11:21 Dose: 10 mg Minoxidil (Minoxidil) 5 mg PO DAILY [facility] Last Admin: 10/13/16 10:08 Dose: Not Given Nifedipine (Procardia Xl) 90 mg PO DAILY [facility] Last Admin: 10/13/16 10:09 Dose: Not Given Pantoprazole Sodium (Protonix Ec Tab) 40 mg PO DAILY [facility] [place] Last Admin: 10/13/16 10:12 Dose: 40 mg Rosuvastatin Calcium (Crestor) 2.5 mg PO HS [facility] Last Admin: 10/12/16 22:00 Dose: 2.5 mg Timolol Maleate (Timoptic 0.25% Oph Soln) 1 drop OD BID [facility] Last Admin: 10/13/16 10:03 Dose: 1 drop Vitamin B Complex/Vit C/Folic Acid (Nephro-Anjelica) 1 tab PO DAILY [facility] Last Admin: 10/13/16 10:02 Dose: 1 tab - Labs Labs: 10/11/16 09:29 10/11/16 09:29 Assessment and Plan - Assessment and Plan (Free Text) Assessment: Patient is seen and examined. No acute complaints noted. D/W DR Gamez, plan to discharge her to rehab after HD today. IV ZYVOX and cefepime to continue for 4 more weeks as per DR Roque.
[2016-10-13 19:37] VITALS: BP 115/55; PULSE 88; TEMP 99; O2SAT 100
[2016-10-13] MEDS: Rosuvastatin Calcium 2.5 mg Tab PO SCH (21:26)
[2016-10-13] MEDS: Cefepime IV 1 gm in Dextrose 1 GM/50 ML BAG IVPB SCH (21:28)
--- NOTE | 2016-10-14 18:25 | CP.PCM.DIS ---
Provider - Provider Date of Admission: 10/07/16 13:31 Attending physician: Sal Gamez MD Time Spent in preparation of Discharge (in minutes): 30 Diagnosis - Discharge Diagnosis (1) ESRD on hemodialysis Status: Acute (2) Abdominal pain with vomiting Status: Acute (3) Chronic ulcer of left foot Status: Acute (4) Diabetic foot ulcer Status: Acute (5) DM2 (diabetes mellitus, type 2) Status: Chronic (6) Diabetic gastroparesis Status: Chronic (7) Hypertension Status: Chronic Hospital Course - Lab Results Lab Results: Micro Results 10/08/16 10:30 Foot - Left Gram Stain - Final 10/08/16 10:30 Foot - Left Wound Culture - Final Klebsiella Oxytoca Coagulase Neg Staphylococcus Most Recent Lab Values WBC 7.6 K/uL (4.8-10.8) 10/09/16 09:30 RBC 2.40 Mil/uL (3.80-5.20) L 10/09/16 09:30 Hgb 8.4 g/dL (11.0-16.0) L 10/11/16 09:29 Hct 25.3 % (34.0-47.0) L 10/11/16 09:29 MCV 92.0 fL (81.0-99.0) 10/09/16 09:30 MCH 30.5 pg (27.0-31.0) 10/09/16 09:30 MCHC 33.2 g/dL (33.0-37.0) 10/09/16 09:30 RDW 16.7 % (11.5-14.5) H 10/09/16 09:30 Plt Count 163 K/uL (130-400) 10/09/16 09:30 MPV 8.6 fL (7.2-11.7) 10/09/16 09:30 Neut % (Auto) 68.2 % (50.0-75.0) 10/09/16 09:30 Lymph % (Auto) 17.0 % (20.0-40.0) L 10/09/16 09:30 Armstrong % (Auto) 6.1 % (0.0-10.0) 10/09/16 09:30 Eos % (Auto) 7.5 % (0.0-4.0) H 10/09/16 09:30 Baso % (Auto) 1.2 % (0.0-2.0) 10/09/16 09:30 Neut # 5.2 K/uL (1.8-7.0) 10/09/16 09:30 Lymph # 1.3 K/uL (1.0-4.3) 10/09/16 09:30 Armstrong # 0.5 K/uL (0.0-0.8) 10/09/16 09:30 Eos # 0.6 K/uL (0.0-0.7) 10/09/16 09:30 Baso # 0.1 K/uL (0.0-0.2) 10/09/16 09:30 Sodium 133 mmol/L (132-148) 10/11/16 09:29 Potassium 5.4 mmol/L (3.6-5.2) H 10/11/16 09:29 Chloride 93 mmol/L (98-107) L 10/11/16 09:29 Carbon Dioxide 29 mmol/L (22-30) 10/11/16 09:29 Anion Gap 17 (10-20) 10/11/16 09:29 BUN 52 mg/dL (7-17) H 10/11/16 09:29 Creatinine 6.7 MG/DL (0.7-1.2) H 10/11/16 09:29 Est GFR ( Amer) 8 10/11/16 09:29 Est GFR (Non-Af Amer) 7 10/11/16 09:29 POC Glucose (mg/dL) 117 mg/dL (65-110) H 10/13/16 16:42 Random Glucose 128 mg/dL (65-105) H 10/11/16 09:29 Calcium 8.4 mg/dl (8.6-10.4) L 10/11/16 09:29 Phosphorus 4.2 mg/dL (2.5-4.5) 10/08/16 08:09 C. difficile Ag & Toxin Negative (NEGATIVE) 10/07/16 Unknown Blood Type O POSITIVE 10/09/16 10:21 Antibody Screen Negative 10/09/16 10:21 - Hospital Course Hospital Course: 41 y/o female seen bedside for chronic OM secondary to left heel ulceration. Pt appears in NAD and is AAOx3. Pt denies of any acute events overnight. Patient states that she has severe back pain with spasm. Patient denies any pedal pain today and she feels much better today. Pt's dressing appears clean, dry and intact. Patient denies any symptoms of N/V/F/SOB/Chest pain. Pt is for discharge to [facility] at [facility] for 6 weeks of antibiotics, she is agreeable Discharge Exam - Head Exam Head Exam: NORMOCEPHALIC - Eye Exam Eye Exam: EOMI, Normal appearance, PERRL Pupil Exam: NORMAL ACCOMODATION, PERRL - ENT Exam ENT Exam: Mucous Membranes Moist - Respiratory Exam Respiratory Exam: Clear to PA & Lateral, NORMAL BREATHING PATTERN - Cardiovascular Exam Cardiovascular Exam: REGULAR RHYTHM, +S1, +S2 - GI/Abdominal Exam GI & Abdominal Exam: Normal Bowel Sounds - Neurological Exam Neurological exam: Alert, Normal Gait, Oriented x3 - Psychiatric Exam Psychiatric exam: Normal Affect, Normal Mood - Skin Skin Exam: Erythema, Rash, Vesicles Discharge Plan - Discharge Medications Prescriptions: Cefepime 1gm in NS 100ml [Maxipime 1gm] 1 gm IVPB DAILY #28 bag Linezolid 600 mg in D5W 300 ml [Zyvox IV] 600 mg IV Q12H #56 bag - Follow Up Plan Condition: STABLE Disposition: REHAB FACILITY/REHAB UNIT Instructions: Linezolid (By injection), Cefepime (By injection), Dialysis Diet (DC), Hyperkalemia (DC), End Stage Kidney Disease (DC) Referrals: Sal Gamez MD [Staff Provider] -
--- NOTE | 2016-10-16 08:11 | RAD ---
PROCEDURE: Date of procedure: 10/12/2016 Procedure: 1. Placement of a right arm PICC with ultrasound and fluoroscopic guidance, CPT 59437 2. PICC tip confirmation with spot radiograph and is in the superior vena cava Medications: 3cc 1 percent lidocaine Total Fluoro time: 19.4 seconds Radiation: 7.01 mGy EBL: 2 cc HISTORY: Infection requiring long-term IV antibiotics TECHNIQUE: Following informed consent and procedure time-out, the patient was placed supine on the interventional table and the right arm prepped and draped in the usual sterile fashion. Ultrasound showed a patent and compressible right basilic vein. After the skin was anesthetized with lidocaine, the basilic vein was accessed with micro micropuncture technique using ultrasound guidance. A guidewire was then advanced under fluoroscopic guidance into the superior vena cava. An image documenting ultrasound guidance for vascular access was permanently saved. The length of the single-lumen 4 Slovak PICC was trimmed to 37 centimeters and advanced through a peel-away sheath. The PICC was position with tip of PICC confirm a spot radiograph the superior vena cava. The PICC was secured to the patient's skin. The PICC was flushed. A biopatch and sterile dressing was applied. IMPRESSION: Placement of a single-lumen 4 Slovak PICC trimmed to 37 centimeters via right basilic vein. The tip of the PICC is confirmed with spot radiograph and is in the superior vena cava.
== END 2016-10-13 22:15 | DRG 682 ==
LOC: C.ER 09:53 → C.9E 13:31 → C.6T 14:58 → C.3T 10-10 01:14
PROVIDERS: ADMIT Internal Medicine; ATTEND Internal Medicine
PROC: 5A1D60Z (ICD-10-PCS; 2016-10-07)
PROC: 0HDNXZZ Extraction of Left Foot Skin, External Approach (ICD-10-PCS; principal; 2016-10-08)
PROC: 02HV33Z Insertion of Infusion Device into Superior Vena Cava, Percutaneous Approach (ICD-10-PCS; 2016-10-12)
PROC: B548ZZA Ultrasonography of Superior Vena Cava, Guidance (ICD-10-PCS; 2016-10-12)
DX: I12.0 Hypertensive chronic kidney disease with stage 5 chronic kidney disease or end stage renal disease (principal); N18.6 End stage renal disease; M86.172 Other acute osteomyelitis, left ankle and foot; E11.43 Type 2 diabetes mellitus with diabetic autonomic (poly)neuropathy; E11.22 Type 2 diabetes mellitus with diabetic chronic kidney disease; K31.84 Gastroparesis; N25.81 Secondary hyperparathyroidism of renal origin; E83.111 Hemochromatosis due to repeated red blood cell transfusions; M86.672 Other chronic osteomyelitis, left ankle and foot; L97.429 Non-pressure chronic ulcer of left heel and midfoot with unspecified severity; E11.621 Type 2 diabetes mellitus with foot ulcer; E11.69 Type 2 diabetes mellitus with other specified complication; L97.529 Non-pressure chronic ulcer of other part of left foot with unspecified severity; M54.5 Low back pain; E87.5 Hyperkalemia; Z99.2 Dependence on renal dialysis; D63.1 Anemia in chronic kidney disease; E78.00 Pure hypercholesterolemia, unspecified; B96.1 Klebsiella pneumoniae [K. pneumoniae] as the cause of diseases classified elsewhere; B95.7 Other staphylococcus as the cause of diseases classified elsewhere; G89.29 Other chronic pain; Z79.4 Long term (current) use of insulin; Z83.3 Family history of diabetes mellitus; Z87.01 Personal history of pneumonia (recurrent); Z87.891 Personal history of nicotine dependence

== ENCOUNTER 2016-10-15 22:21 | Inpatient (IN) | payer MEDICARE, OTHER ==
[2016-10-15 22:22] VITALS: BMI 27.4
[2016-10-15] MEDS ORDERED: DiphenhydrAMINE 50 mg/ml Inj IVP STA (22:38)
--- NOTE | 2016-10-15 22:45 | C.PDOC ---
History Of Present Illness A 41 y/o female with a Hx of ESRD, c/o abdominal pain since yesterday. Pt denies fever, chills, nausea, vomiting, diarrhea, vaginal bleeding or discharge , dysuria, hematuria, or any other complaints. Time Seen by Provider: 10/15/16 22:34 Chief Complaint (Nursing): Abdominal Pain History Per: Patient History/Exam Limitations: no limitations Onset/Duration Of Symptoms: Days Current Symptoms Are (Timing): Still Present Severity: Mild Location Of Pain/Discomfort: Diffuse Associated Symptoms: denies: Fever, Chills, Nausea, Vomiting, Diarrhea Recent travel outside of the [place]: No Additional History Per: Patient Abnormal Vaginal Bleeding: No Past Medical History Reviewed: Historical Data, Nursing Documentation, Vital Signs Vital Signs: Last Vital Signs Temp 98.3 F 10/16/16 01:23 Pulse 75 10/16/16 01:23 Resp 18 10/16/16 01:23 BP 114/72 10/16/16 01:23 Pulse Ox 99 10/16/16 03:20 - Medical History PMH: Anemia, Depression, Diabetes, Gastritis (diabetic gastroparesis), HTN, Hypercholesterolemia, Pneumonia, End Stage Renal Disease, Chronic Kidney Disease Surgical History: Cholecystectomy - [facility] Procedures BONE BIOPSY NEC (04/07/13) CATARAC PHACOEMULS/ASPIR (09/23/14) CONTRAST ARTERIOGRAM NEC (07/17/13) CONTRAST ARTERIOGRAM-LEG (04/07/13) DIALYSIS ARTERIOVENOSTOM (04/07/13) ESOPHAGOGASTRODUODENOSCOPY [EGD] W/CLOSED BIOPSY (09/19/13) EXCIS DEBRIDE OF WOUND, INFECT, OR BURN (07/17/13) EXCISION OF STOMACH, ENDO, DIAGN (09/13/16) EXCISION OF STOMACH, PYLORUS, ENDO, DIAGN (03/14/15) EXTRACTION OF LEFT LOWER LEG SKIN, EXTERNAL APPROACH (06/16/16) HEMODIALYSIS (01/01/15) INCIS W REM OF FORIEGN BODY OR DEV FROM SKIN & SUBCUT TISSUE (05/27/13) INDIVID PSYCHOTHERAP NEC (04/20/13) INJECT/INFUSE NEC (11/09/13) INSERT LENS AT CATAR EXT (09/23/14) INSPECTION OF UPPER INTESTINAL TRACT, ENDO (03/10/16) OCCUPATIONAL THERAPY (04/30/13) OTHER GROUP THERAPY (04/20/13) OTHER SKIN & SUBQ I D (07/17/13) PERFORMANCE OF URINARY FILTRATION, MULTIPLE (09/24/16) PERFORMANCE OF URINARY FILTRATION, SINGLE (10/04/16) PHYSICAL THERAPY NEC (04/30/13) TRANSFUSE NONAUT RED BLOOD CELLS IN PERIPH VEIN, PERC (06/10/15) ULTRASONOGRAPHY OF RIGHT AND LEFT HEART, TRANSESOPHAGEAL (06/19/15) Family History: States: Diabetes - Social History Hx Tobacco Use: No Hx Alcohol Use: No Hx Substance Use: No - Immunization History Hx Tetanus Toxoid Vaccination: Yes Hx Influenza Vaccination: Yes Hx Pneumococcal Vaccination: Yes Review Of Systems Except As Marked, All Systems Reviewed And Found Negative. Constitutional: Negative for: Fever, Chills Gastrointestinal: Positive for: Abdominal Pain. Negative for: Nausea, Vomiting , Diarrhea Genitourinary: Negative for: Dysuria, Hematuria, Vaginal Discharge, Vaginal Bleeding Physical Exam - Physical Exam Appears: Non-toxic, In Acute Distress Skin: Warm, Dry Head: Atraumatic, Normacephalic Eye(s): bilateral: Normal Inspection Oral Mucosa: Moist Throat: Normal, No Exudate Neck: Supple Chest: Symmetrical Cardiovascular: Rhythm Regular, No Murmur Respiratory: Normal Breath Sounds, No Rales, No Rhonchi, No Wheezing Gastrointestinal/Abdominal: Soft, No Tenderness (Mid abdominal tenderness), No Guarding, No Rebound Back: Normal Inspection, No CVA Tenderness Neurological/Psych: Oriented x3, Normal Speech, Normal Cognition, Other (No focal deficit) ED Course And Treatment - Laboratory Results Result Diagrams: 10/15/16 22:54 10/15/16 22:54 ECG: Interpreted By Me, Viewed By Me ECG Rhythm: Sinus Rhythm ECG Interpretation: No Acute Changes, Abnormal Interpretation Of ECG: NSR, LAD, Abnormal tracings Rate From EC O2 Sat by Pulse Oximetry: 99 (RA) Pulse Ox Interpretation: Normal Medical Decision Making Medical Decision Making: Impression: 41 y/o female c/o abdominal pain since yesterday Plans: -CT Abd/ Pel -EKG -Blood labs -CXR -Benadryl -IV fluids -Reassess Disposition Discussed With : Sal Gamez Doctor Will See Patient In The: Hospital Counseled Patient/Family Regarding: Diagnosis - Disposition Disposition: HOSPITALIZED Disposition Time: 03:19 Condition: STABLE - POA Present On Arrival: None - Clinical Impression Clinical Impression: ESRD (end stage renal disease) on dialysis, Abdominal pain, Pericardial effusion - Scribe Statement The provider has reviewed the documentation as recorded by the Scribe Fanny chapman All medical record entries made by the Scribe were at my direction and personally dictated by me. I have reviewed the chart and agree that the record accurately reflects my personal performance of the history, physical exam, medical decision making, and the department course for this patient. I have also personally directed, reviewed, and agree with the discharge instructions and disposition.
[2016-10-15] MEDS ORDERED: DiphenhydrAMINE 50 mg/ml Inj ONE (22:54)
[2016-10-15 23:00] LABS: BASO # 0.1 K/uL (0.0-0.2); BASO % 0.8 % (0.0-2.0); EOS # 0.8 K/uL (0.0-0.7); EOS % 7.4 % (0.0-4.0); HEMATOCRIT 25.2 % (34.0-47.0); LYMPH # 1.5 K/uL (1.0-4.3); LYMPH % 13.3 % (20.0-40.0); MEAN CELL VOLUME 93.8 fL (81.0-99.0); MEAN CORPUSCULAR HEMOGLOBIN 29.9 pg (27.0-31.0); MEAN CORPUSCULAR HGB CONC 31.9 g/dL (33.0-37.0); MEAN PLATELET VOLUME 7.8 fL (7.2-11.7); MONO # 0.9 K/uL (0.0-0.8); MONO % 8.2 % (0.0-10.0); RED CELL DISTRIBUTION WIDTH 17.9 % (11.5-14.5)
[2016-10-15 23:09] LABS: CHLORIDE 98 mmol/L (98-107); POTASSIUM 6.1 mmol/L (3.6-5.2); SODIUM 138 mmol/L (132-148)
[2016-10-15 23:11] LABS: GFR AFRICAN-AMERICAN 8
[2016-10-15 23:12] LABS: ALB/GLOB RATIO 1.1 (1.0-2.1); ALKALINE PHOSPHATASE 142 U/L (38-126); ALT/SGPT 39 U/L (9-52); AST/SGOT 34 U/L (14-36); BILIRUBIN,TOTAL 0.6 mg/dL (0.2-1.3); BLOOD UREA NITROGEN 52 mg/dL (7-17); CARBON DIOXIDE 24 mmol/L (22-30); GLUCOSE,RANDOM 151 mg/dL (65-105); TOTAL PROTEIN 7.4 g/dL (6.3-8.3)
[2016-10-15 23:13] LABS: CALCIUM 9.1 mg/dl (8.6-10.4)
--- NOTE | 2016-10-16 03:01 | CT ---
EXAM: CT Abdomen and Pelvis Without Intravenous Contrast CLINICAL HISTORY: 41 years old, female; Pain; Abdominal pain; Generalized; Additional info: Abd pain TECHNIQUE: Axial computed tomography images of the abdomen and pelvis without intravenous contrast. This CT exam was performed using one or more of the following dose reduction techniques: automated exposure control, adjustment of the mA and/or kV according to patient size, and/or use of iterative reconstruction technique. Coronal and sagittal reformatted images were created and reviewed. COMPARISON: CT - ABD PELVIS W/O PO OR 07/09/2016 3:24:23 AM FINDINGS: Lower thorax: There is a small pericardial effusion measuring perhaps 12 mm on series 2, image 9. There is mild bibasilar atelectasis. The heart as visualized appears mildly to moderately enlarged. ABDOMEN: Liver: There are no focal liver lesions present. Gallbladder and bile ducts: There has been a cholecystectomy. No ductal dilation. Pancreas: The pancreas is normal. No ductal dilation. Spleen: The spleen is normal. Adrenals: The adrenal glands are normal. Kidneys and ureters: The kidneys are normal. No obstructing stones. No hydronephrosis. Stomach and bowel: The stomach is normal. Colonic constipation is present. There is no evidence of intestinal obstruction. There is a small ventral hernia containing nonobstructed transverse colon. No mucosal thickening. Appendix: A normal appendix is identified. PELVIS: Bladder: Bladder is decompressed. No stones. Reproductive: The uterus is normal. ABDOMEN and PELVIS: Intraperitoneal space: There is no evidence of free intraperitoneal fluid. There is no free intraperitoneal air. Bones/joints: There are mild degenerative changes present. There is moderate diffuse osteopenia. Large Schmorl node is again seen at the inferior endplate of L3. No acute fracture. No dislocation. Soft tissues: Unremarkable. Vasculature: The aorta demonstrates mild atherosclerotic calcification. No abdominal aortic aneurysm. Lymph nodes: There is bilateral inguinal lymphadenopathy. There is retroperitoneal lymphadenopathy. There is mesenteric and peripancreatic lymphadenopathy. These are little changed from 07/09/2016. Other findings: Again seen is mild diffuse anasarca. IMPRESSION: 1. There is a small pericardial effusion measuring perhaps 12 mm on series 2, image 9. 2. There is bilateral inguinal lymphadenopathy. There is retroperitoneal lymphadenopathy. There is mesenteric and peripancreatic lymphadenopathy. These are little changed from 07/09/2016. 3. Additional incidental and/or chronic findings as described.
[2016-10-16] MEDS ORDERED: D5W IV SCH (03:30)
[2016-10-16] MEDS ORDERED: LINEZOLID IV SCH (03:30)
[2016-10-16] MEDS ORDERED: Linezolid 600 mg in D5W 300 ml IVPB SCH ×2 (04:00→12:00)
[2016-10-16] MEDS: Oxycodone/Acetaminophen 5/325 mg Tab PO PRN ×2 (05:45→14:06)
[2016-10-16] MEDS: (Novolog) Insulin Aspart, Recombinant 100 u/ml 10 ml vial SC SCH ×4 (07:40→22:12)
[2016-10-16] MEDS ORDERED: Home Med 1 UNIT (Cefepime 1gm In Ns 100ml [Maxipime 1gm] 1 GM) IVPB SCH (10:00)
[2016-10-16] MEDS ORDERED: EPOETIN ALFA 10,000 UNIT/ML ML IV SCH (10:02)
--- NOTE | 2016-10-16 10:32 | RAD ---
HISTORY: confirm PICC line COMPARISON: No prior. FINDINGS: LUNGS: Right PICC line with tip extending into the right brachiocephalic vein. Advancement is recommended. Diffuse increased interstitial lung markings suggestive for edema and or infiltrate. Nodular density projecting over the left upper to mid lung zone likely represents confluence of shadows with ribs and vessels. PLEURA: No significant pleural effusion identified, no pneumothorax apparent. CARDIOVASCULAR: Normal. OSSEOUS STRUCTURES: No significant abnormalities. VISUALIZED UPPER ABDOMEN: Normal. OTHER FINDINGS: None. IMPRESSION: Right PICC line with tip extending into the right brachiocephalic vein. Advancement is recommended. Diffuse increased interstitial lung markings suggestive for edema and or infiltrate. Nodular density projecting over the left upper to mid lung zone likely represents confluence of shadows with ribs and vessels.
[2016-10-16] MEDS: NIFEdipine 90 mg ER Tab PO SCH (11:22)
[2016-10-16] MEDS: Timolol 0.25% Ophth SOLN OD SCH ×2 (11:23→22:29)
[2016-10-16] MEDS: Pantoprazole 40 mg EC Tab PO SCH (11:23)
[2016-10-16] MEDS: Epoetin Alfa 10,000 unit/ml Dialysis IV SCH (11:54)
--- NOTE | 2016-10-16 12:41 | CP.PCM.CON ---
History of Present Illness - History of Present Illness History of Present Illness: 41 y/o female with ESRD on HD,HTN,IDDM with complications multiple hosp admissions for c/o abdominal pain is admitted for C/o SOB. Pt also reports feelong SOB today. Pts dialysis schedule is TTS & receives dialysis via Lt arm AVF Past Patient History - Infectious Disease Hx of Infectious Diseases: None - Past Medical History & Family History Past Medical History?: Yes - Past Social History Smoking Status: Former Smoker - CARDIAC Hx Hypercholesterolemia: Yes Hx Hypertension: Yes - PULMONARY Hx Pneumonia: Yes - NEUROLOGICAL Hx Neurological Disorder: No - HEENT Hx HEENT Problems: Yes Hx Cataracts: Yes (09/23/14 left) - RENAL Hx Chronic Kidney Disease: Yes Hx Dialysis: Yes Type of Dialysis Access: leftv arm av shunt Hx Renal Failure: Yes Other/Comment: hd MWF - ENDOCRINE/METABOLIC Hx Endocrine Disorders: Yes Hx Diabetes Mellitus Type 2: Yes - HEMATOLOGICAL/ONCOLOGICAL Hx Anemia: Yes - INTEGUMENTARY Hx Dermatological Problems: Yes Other/Comment: right great toe amputation - MUSCULOSKELETAL/RHEUMATOLOGICAL Hx Falls: Yes - GASTROINTESTINAL Hx Gastritis: Yes (diabetic gastroparesis) - GENITOURINARY/GYNECOLOGICAL Hx Genitourinary Disorders: Yes Other/Comment: renal failure - PSYCHIATRIC Hx Substance Use: No - SURGICAL HISTORY Hx Cholecystectomy: Yes - ANESTHESIA Hx Anesthesia: Yes Hx Anesthesia Reactions: No Hx Malignant Hyperthermia: No Meds Allergies/Adverse Reactions: Allergies Allergy/AdvReac Type Severity Reaction Status Date / Time ketorolac tromethamine Allergy Verified 10/02/16 06:15 [From Toradol] morphine Allergy Verified 10/02/16 06:15 tramadol Allergy RASH Verified 10/07/16 10:07 - Medications Medications: Current Medications Calcium Acetate (Phoslo) 667 mg PO TID [facility] Last Admin: 10/16/16 11:22 Dose: Not Given Carvedilol (Coreg) 25 mg PO BID [facility] Last Admin: 10/16/16 11:21 Dose: Not Given Clonidine HCl (Catapres-Tts3 0.3 Mg/24 Hr) 1 patch TD Q7D@1000 [facility] Epoetin Cornelius (Procrit) 10,000 unit IV MWF [facility] Last Admin: 10/16/16 11:54 Dose: 10,000 unit Gabapentin (Neurontin) 100 mg PO TID [facility] Last Admin: 10/16/16 11:22 Dose: Not Given Heparin Sodium (Porcine) (Heparin) 5,000 units SC Q8 [facility] Last Admin: 10/16/16 05:46 Dose: 5,000 units Hydralazine HCl (Apresoline) 100 mg PO Q8 [facility] Last Admin: 10/16/16 05:44 Dose: 100 mg Cefepime HCl (Maxipime Iv 1 Gm Premix) 1 gm in 50 mls @ 100 mls/hr IVPB Q24H [facility] Insulin Aspart (Novolog) 0 unit SC ACHS [facility] PRN Reason: Protocol Last Admin: 10/16/16 07:40 Dose: 1 unit Lidocaine (Lidoderm) 1 ea TD DAILY [facility] Linezolid (Zyvox 600mg/300ml D5w) 600 mg IVPB Q12H [facility] Metoclopramide HCl (Reglan) 10 mg PO ACTID [facility] Last Admin: 10/16/16 07:40 Dose: 10 mg Nifedipine (Procardia Xl) 90 mg PO DAILY [facility] Last Admin: 10/16/16 11:22 Dose: Not Given Oxycodone/Acetaminophen (Percocet 5/325 Mg Tab) 1 tab PO Q4H PRN PRN Reason: Pain, moderate (4-7) Stop: 10/19/16 03:37 Last Admin: 10/16/16 05:45 Dose: 1 tab Pantoprazole Sodium (Protonix Ec Tab) 40 mg PO DAILY [facility] Last Admin: 10/16/16 11:23 Dose: Not Given Rosuvastatin Calcium (Crestor) 2.5 mg PO HS [facility] Timolol Maleate (Timoptic 0.25% Ophth Soln) 1 drop OD BID [facility] Last Admin: 10/16/16 11:23 Dose: Not Given Physical Exam - Constitutional Appears: No Acute Distress Additional comments: Currently on dialysi - Head Exam Head Exam: ATRAUMATIC, NORMOCEPHALIC - Eye Exam Additional comments: No scleral icterus - ENT Exam ENT Exam: Mucous Membranes Moist - Neck Exam Additional comments: Neck supple - Respiratory Exam Additional comments: Lungs clear - Cardiovascular Exam Cardiovascular Exam: REGULAR RHYTHM - GI/Abdominal Exam GI & Abdominal Exam: Soft - Extremities Exam Additional comments: No edema or cyanosis Results - Vital Signs Recent Vital Signs: Last Vital Signs Temp 97.7 F 10/16/16 09:00 Pulse 72 10/16/16 10:16 Resp 17 10/16/16 10:16 BP 124/58 L 10/16/16 12:01 Pulse Ox 100 10/16/16 09:00 - Labs Result Diagrams: 10/15/16 22:54 10/15/16 22:54 Labs: Laboratory Results - last 24 hr 10/16/16 10/16/16 06:21 12:05 POC Glucose (mg/dL) 160 H 111 H Assessment & Plan - Assessment and Plan (Free Text) Assessment: ESRD Anemia of CKD IDDM Rt foot OM on Abx Abdominal pain Plan: Dialysis is tolerated well today UF 3.5 Kg with improvement in Sm Will repeat iron profile. Hb remains low despite high dose of Epogen Continue HD MWF
[2016-10-16] MEDS: Lidocaine 5% Patch TD SCH (14:05)
[2016-10-16] MEDS: Cefepime IV 1 gm in Dextrose 1 GM/50 ML BAG IVPB SCH (14:05)
--- NOTE | 2016-10-16 14:13 | RAD ---
PROCEDURE: Radiographs of the Lumbar Spine. HISTORY: Back Pain COMPARISON: No prior. FINDINGS: BONES: There is straightening of the lumbar spine with loss of normal lumbar lordosis. Vertebral alignment is normal. Vertebral height is maintained. . There is no acute fracture. DISC SPACES: There is mild multilevel degenerative disc disease with anterior spurring, mild reduced disc heights and multilevel facet arthropathy, worse at L5-S1. OTHER FINDINGS: There are no pathologic soft tissue calcifications. Both sacroiliac joints are normal. IMPRESSION: No acute fracture. Mild multilevel degenerative disc disease, worse at L5-S1.
[2016-10-16] MEDS: HYDROmorphone 0.5 mg/0.5 ml ISec IVP PRN ×2 (16:24→20:30)
[2016-10-16] MEDS: Linezolid 600 mg in D5W 300 ml 600 MG/300 ML BAG IVPB SCH (20:01)
[2016-10-16] MEDS: DiphenhydrAMINE 50 mg/ml Inj IVP PRN (20:05)
[2016-10-16] MEDS: Rosuvastatin Calcium 2.5 mg Tab PO SCH (22:28)
--- NOTE | 2016-10-16 22:56 | CP.PCM.HP ---
History of Present Illness - History of Present Illness History of Present Illness: CC: shortness of breath HPI: 41 y/o female with ESRD on HD,HTN,IDDM with complications multiple hosp admissions for c/o abdominal pain is admitted for C/o SOB. Pt also reports feelong SOB today. Pts dialysis schedule is TTS & receives dialysis via Lt arm AVF IV RX for OM left foot in progress Present on Admission - Present on Admission Any Indicators Present on Admission: Yes Review of Systems - Review of Systems Systems not reviewed;Unavailable: Acuity of Condition - Constitutional Constitutional: Fatigue, Lethargy - EENT Eyes: absent: As Per HPI, Blind Spots, Blurred Vision, Change in Vision, Decreased Night Vision, Diplopia, Discharge, Dry Eye, Exophthalmos, Floaters, Irritation, Itchy Eyes, Loss of Peripheral Vision, Pain, Photophobia, Requires Corrective Lenses, Sees Flashes, Spots in Vision, Tunnel Vision, Other Visual Disturbances, Loss of Vision, Other Nose/Mouth/Throat: absent: As Per HPI, Epistaxis, Nasal Congestion, Nasal Discharge, Nasal Obstruction, Nasal Trauma, Nose Pain, Post Nasal Drip, Sinus Pain, Sinus Pressure, Bleeding Gums, Change in Voice, Dental Pain, Dry Mouth, Dysphagia, Halitosis, Hoarsness, Lip Swelling, Mouth Lesions, Mouth Pain, Odynophagia, Sore Throat, Throat Swelling, Tongue Swelling, Facial Pain, Neck Pain, Neck Mass, Other - Respiratory Respiratory: Dyspnea - Gastrointestinal Gastrointestinal: Abdominal Pain - Genitourinary Genitourinary: absent: As Per HPI, Change in Urinary Stream, Difficulty Urinating, Dysuria, Flank Pain, Hematuria, Pyuria, Nocturia, Urinary Incontinence, Urinary Frequency, Urinary Hesitance, Urinary Urgency, Voiding Freq/Small Amts, Freq UTI, Hx Renal/Bladder Calculi, Hx /Renal Surgery, Bladder Distension, Other Past Patient History - Infectious Disease Hx of Infectious Diseases: None - Past Medical History & Family History Past Medical History?: Yes - Past Social History Smoking Status: Former Smoker - CARDIAC Hx Hypercholesterolemia: Yes Hx Hypertension: Yes - PULMONARY Hx Pneumonia: Yes - NEUROLOGICAL Hx Neurological Disorder: No - HEENT Hx HEENT Problems: Yes Hx Cataracts: Yes (09/23/14 left) - RENAL Hx Chronic Kidney Disease: Yes Hx Dialysis: Yes Type of Dialysis Access: leftv arm av shunt Hx Renal Failure: Yes Other/Comment: hd MWF - ENDOCRINE/METABOLIC Hx Endocrine Disorders: Yes Hx Diabetes Mellitus Type 2: Yes - HEMATOLOGICAL/ONCOLOGICAL Hx Anemia: Yes - INTEGUMENTARY Hx Dermatological Problems: Yes Other/Comment: right great toe amputation - MUSCULOSKELETAL/RHEUMATOLOGICAL Hx Falls: Yes - GASTROINTESTINAL Hx Gastritis: Yes (diabetic gastroparesis) - GENITOURINARY/GYNECOLOGICAL Hx Genitourinary Disorders: Yes Other/Comment: renal failure - PSYCHIATRIC Hx Substance Use: No - SURGICAL HISTORY Hx Cholecystectomy: Yes - ANESTHESIA Hx Anesthesia: Yes Hx Anesthesia Reactions: No Hx Malignant Hyperthermia: No Meds Allergies/Adverse Reactions: Allergies Allergy/AdvReac Type Severity Reaction Status Date / Time ketorolac tromethamine Allergy Verified 10/02/16 06:15 [From Toradol] morphine Allergy Verified 10/02/16 06:15 tramadol Allergy RASH Verified 10/07/16 10:07 Physical Exam - Constitutional Appears: No Acute Distress - Head Exam Head Exam: ATRAUMATIC, NORMAL INSPECTION, NORMOCEPHALIC - Eye Exam Eye Exam: EOMI, Normal appearance, PERRL Pupil Exam: NORMAL ACCOMODATION, PERRL - ENT Exam ENT Exam: Mucous Membranes Moist, Normal Exam - Neck Exam Neck exam: Positive for: Normal Inspection - Respiratory Exam Respiratory Exam: Clear to Auscultation Bilateral, NORMAL BREATHING PATTERN - Cardiovascular Exam Cardiovascular Exam: REGULAR RHYTHM - GI/Abdominal Exam GI & Abdominal Exam: Normal Bowel Sounds, Soft. absent: Tenderness Results - Vital Signs Recent Vital Signs: Last Vital Signs Temp 98.5 F 10/16/16 16:10 Pulse 84 10/16/16 16:10 Resp 20 10/16/16 16:10 BP 123/75 10/16/16 22:28 Pulse Ox 96 10/16/16 16:10 - Labs Result Diagrams: 10/15/16 22:54 10/15/16 22:54 Labs: Laboratory Results - last 24 hr 10/16/16 10/16/16 10/16/16 06:21 12:05 16:18 POC Glucose (mg/dL) 160 H 111 H 130 H 10/16/16 22:00 POC Glucose (mg/dL) 130 H Assessment & Plan (1) Abdominal pain Status: Acute (2) ESRD (end stage renal disease) on dialysis Status: Acute (3) Acute abdominal pain syndrome Status: Acute (4) Dyspnea Status: Acute
[2016-10-17] MEDS: HYDROmorphone 0.5 mg/0.5 ml ISec IVP PRN ×5 (00:28→20:31)
[2016-10-17] MEDS: DiphenhydrAMINE 50 mg/ml Inj IVP PRN ×3 (02:11→17:22)
[2016-10-17] MEDS: Linezolid 600 mg in D5W 300 ml 600 MG/300 ML BAG IVPB SCH ×2 (06:45→20:17)
[2016-10-17] MEDS: (Novolog) Insulin Aspart, Recombinant 100 u/ml 10 ml vial SC SCH ×4 (08:06→21:49)
--- NOTE | 2016-10-17 10:40 | CP.PCM.CON ---
History of Present Illness - History of Present Illness History of Present Illness: 41 y/o female with ESRD on HD,HTN,IDDM with complications multiple hosp admissions for c/o abdominal pain is admitted for C/o SOB. Pt also reports feelong SOB today. Pts dialysis schedule is TTS & receives dialysis via Lt arm AVF IV RX for OM left foot in progress Review of Systems - Review of Systems All systems: reviewed and no additional remarkable complaints except - Constitutional Constitutional: absent: As Per HPI, Anorexia, Chills, Daytime Sleepiness, Excessive Sweating, Fatigue, Fever, Frequent Falls, Headache, Increased Appetite , Lethargy, Malaise, Night Sweats, Snoring, Sleep Apnea, Weight Gain, Weight Loss, Weakness, Other - EENT Eyes: absent: As Per HPI, Blind Spots, Blurred Vision, Change in Vision, Decreased Night Vision, Diplopia, Discharge, Dry Eye, Exophthalmos, Floaters, Irritation, Itchy Eyes, Loss of Peripheral Vision, Pain, Photophobia, Requires Corrective Lenses, Sees Flashes, Spots in Vision, Tunnel Vision, Other Visual Disturbances, Loss of Vision, Other Ears: absent: As Per HPI, Decreased Hearing, Ear Discharge, Ear Pain, Tinnitus, Abnormal Hearing, Disequilibrium, Dizziness, Other Nose/Mouth/Throat: absent: As Per HPI, Epistaxis, Nasal Congestion, Nasal Discharge, Nasal Obstruction, Nasal Trauma, Nose Pain, Post Nasal Drip, Sinus Pain, Sinus Pressure, Bleeding Gums, Change in Voice, Dental Pain, Dry Mouth, Dysphagia, Halitosis, Hoarsness, Lip Swelling, Mouth Lesions, Mouth Pain, Odynophagia, Sore Throat, Throat Swelling, Tongue Swelling, Facial Pain, Neck Pain, Neck Mass, Other - Breasts Breasts: absent: As Per HPI, Change in Shape, Mass, Pain, Nipple Discharge, Nipple Inversion, Skin Changes, Swelling, Other - Cardiovascular Cardiovascular: absent: As Per HPI, Acrocyanosis, Chest Pain, Chest Pain at Rest , Chest Pain with Activity, Claudication, Diaphoresis, Dyspnea, Dyspnea on Exertion, Edema, Irregular Heart Rhythm, Pain Radiating to Arm/Neck/Jaw, Leg Edema, Leg Ulcers, Lightheadedness, Orthopnea, Palpitations, Paroxysmal Nocturnal Dyspnea, Pedal Edema, Radiating Pain, Rapid Heart Rate, Slow Heart Rate, Syncope, Other - Gastrointestinal Gastrointestinal: absent: As Per HPI, Abdominal Pain, Belching, Bloating, Change in Bowel Habits, Change in Stool Character, Coffee Ground Emesis, Constipation, Cramping, Diarrhea, Dyspepsia, Dysphagia, Early Satiety, Excessive Flatus, Fecal Incontinence, Heartburn, Hematemesis, Hematochezia, Loose Stools, Melena, Nausea, Odynophagia, Temesmus, Vomiting, Other - Genitourinary Genitourinary: absent: As Per HPI, Change in Urinary Stream, Difficulty Urinating, Dysuria, Flank Pain, Hematuria, Pyuria, Nocturia, Urinary Incontinence, Urinary Frequency, Urinary Hesitance, Urinary Urgency, Voiding Freq/Small Amts, Freq UTI, Hx Renal/Bladder Calculi, Hx /Renal Surgery, Bladder Distension, Other - Reproductive: Female Reproductive:Female: absent: As Per HPI, Amenorrhea, Amenorrhea/ Control, Currently Menstual, Cycle <21 Days, Cycle >35 Days, Cycle Variable, Menses 1-7 Days, Menses >/= 8 Days, Menses Variable, Cycle > 4 Weeks Between, No Menses for 6 Months, Heavy Menses, Light Menses, Normal Menses, Spotting Between Cycles , S/P Hysterectomy, Menopausal, Post Menopausal, Premenarche, Abnormal Vaginal Bleeding, Dysmenorrhea, Dyspareunia, Genital Lesions, Genital Pruritis, Pelvic Pain, Prolapse Symptoms, Sexual Dysfunction, Vaginal Discharge, Vaginal Dryness , Vaginal Odor, Vaginal Pruritis, Other - Menstruation Menstruation: absent: As Per HPI, Amenorrhea, Amenorrhea/ Control, Currently Menstual, Cycle <21 Days, Cycle >35 Days, Cycle Variable, Menses 1-7 Days, Menses >/= 8 Days, Menses Variable, Cycle > 4 Weeks Between, No Menses for 6 Months, Heavy Menses, Light Menses, Normal Menses, Spotting Between Cycles , S/P Hysterectomy, Menopausal, Post Menopausal, Premenarche, Abnormal Vaginal Bleeding, Dysmenorrhea, Other - Psychiatric Psychiatric: absent: As Per HPI, Abnormal Sleep Pattern, Anhedonia, Anxiety, Auditory Hallucinations, Behavioral Changes, Change in Appetite, Change in Libido, Confusion, Depression, Difficulty Concentrating, Hallucinations, Homicidal Ideation, Hopelessness, Irritability, Memory Loss, Mood Swings, Panic Attacks, Paranoia, Suicidal Ideation, Visual Hallucinations, Tactile Hallucinations, Other - Endocrine Endocrine: absent: As Per HPI, Change in Body Appearance, Change in Libido, Cold Intolorance, Deepening of Voice, Excessive Sweating, Fatigue, Flushing, Heat Intolorance, Increase in Ring/Shoe/Hat Size, Palpitations, Polydipsia, Polyphagia, Polyuria, Other - Hematologic/Lymphatic Hematologic: absent: As Per HPI, Easy Bleeding, Easy Bruising, Lymphadenopathy, Other Past Patient History - Infectious Disease Hx of Infectious Diseases: None - Past Medical History & Family History Past Medical History?: Yes - Past Social History Smoking Status: Former Smoker - CARDIAC Hx Hypercholesterolemia: Yes Hx Hypertension: Yes - PULMONARY Hx Pneumonia: Yes - NEUROLOGICAL Hx Neurological Disorder: No - HEENT Hx HEENT Problems: Yes Hx Cataracts: Yes (09/23/14 left) - RENAL Hx Chronic Kidney Disease: Yes Hx Dialysis: Yes Type of Dialysis Access: leftv arm av shunt Hx Renal Failure: Yes Other/Comment: hd MWF - ENDOCRINE/METABOLIC Hx Endocrine Disorders: Yes Hx Diabetes Mellitus Type 2: Yes - HEMATOLOGICAL/ONCOLOGICAL Hx Anemia: Yes - INTEGUMENTARY Hx Dermatological Problems: Yes Other/Comment: right great toe amputation - MUSCULOSKELETAL/RHEUMATOLOGICAL Hx Falls: Yes - GASTROINTESTINAL Hx Gastritis: Yes (diabetic gastroparesis) - GENITOURINARY/GYNECOLOGICAL Hx Genitourinary Disorders: Yes Other/Comment: renal failure - PSYCHIATRIC Hx Substance Use: No - SURGICAL HISTORY Hx Cholecystectomy: Yes - ANESTHESIA Hx Anesthesia: Yes Hx Anesthesia Reactions: No Hx Malignant Hyperthermia: No Meds Allergies/Adverse Reactions: Allergies Allergy/AdvReac Type Severity Reaction Status Date / Time ketorolac tromethamine Allergy Verified 10/02/16 06:15 [From Toradol] morphine Allergy Verified 10/02/16 06:15 tramadol Allergy RASH Verified 10/07/16 10:07 - Medications Medications: Current Medications Calcium Acetate (Phoslo) 667 mg PO TID [facility] Last Admin: 10/16/16 18:23 Dose: 667 mg Carvedilol (Coreg) 25 mg PO BID [facility] Last Admin: 10/16/16 22:28 Dose: 25 mg Clonidine HCl (Catapres-Tts3 0.3 Mg/24 Hr) 1 patch TD Q7D@1000 [facility] Last Admin: 10/16/16 14:04 Dose: 1 patch Diphenhydramine HCl (Benadryl) 50 mg IVP Q6 PRN PRN Reason: Itching / Pruritus Last Admin: 10/17/16 08:21 Dose: 50 mg Epoetin Cornelius (Procrit) 10,000 unit IV MWF [facility] Last Admin: 10/16/16 11:54 Dose: 10,000 unit Gabapentin (Neurontin) 100 mg PO TID [facility] Last Admin: 10/16/16 18:22 Dose: 100 mg Heparin Sodium (Porcine) (Heparin) 5,000 units SC Q8 [facility] Last Admin: 10/17/16 06:47 Dose: 5,000 units Hydralazine HCl (Apresoline) 100 mg PO Q8 [facility] Last Admin: 10/17/16 06:46 Dose: 100 mg Hydromorphone HCl (Dilaudid) 0.5 mg IVP Q4H PRN PRN Reason: Pain, severe (8-10) Last Admin: 10/17/16 04:44 Dose: 0.5 mg Cefepime HCl (Maxipime Iv 1 Gm Premix) 1 gm in 50 mls @ 100 mls/hr IVPB Q24H [facility] Last Admin: 10/16/16 14:05 Dose: 100 mls/hr Linezolid (Zyvox 600mg/300ml D5w) 600 mg in 300 mls @ 200 mls/hr IVPB Q12H [facility] Last Admin: 10/17/16 06:45 Dose: 200 mls/hr Insulin Aspart (Novolog) 0 unit SC ACHS [facility] PRN Reason: Protocol Last Admin: 10/17/16 08:06 Dose: Not Given Lidocaine (Lidoderm) 1 ea TD DAILY [facility] Last Admin: 10/16/16 14:05 Dose: 1 ea Metoclopramide HCl (Reglan) 10 mg PO ACTID [facility] Last Admin: 10/17/16 06:47 Dose: 10 mg Nifedipine (Procardia Xl) 90 mg PO DAILY [facility] Last Admin: 10/16/16 11:22 Dose: Not Given Oxycodone/Acetaminophen (Percocet 5/325 Mg Tab) 1 tab PO Q4H PRN PRN Reason: Pain, moderate (4-7) Stop: 10/19/16 03:37 Last Admin: 10/16/16 14:06 Dose: 1 tab Pantoprazole Sodium (Protonix Ec Tab) 40 mg PO DAILY [facility] Last Admin: 10/16/16 11:23 Dose: Not Given Rosuvastatin Calcium (Crestor) 2.5 mg PO HS [facility] Last Admin: 10/16/16 22:28 Dose: 2.5 mg Timolol Maleate (Timoptic 0.25% Ophth Soln) 1 drop OD BID [facility] Last Admin: 10/16/16 22:29 Dose: 1 drop Physical Exam - Constitutional Appears: Non-toxic, Cachectic, Chronically Ill - Head Exam Head Exam: ATRAUMATIC, NORMAL INSPECTION, NORMOCEPHALIC - Eye Exam Eye Exam: EOMI, PERRL. absent: Scleral icterus - ENT Exam ENT Exam: Mucous Membranes Dry, Normal External Ear Exam - Neck Exam Neck exam: Negative for: Lymphadenopathy, Thyromegaly - Respiratory Exam Respiratory Exam: Decreased Breath Sounds, Rhonchi - Cardiovascular Exam Cardiovascular Exam: REGULAR RHYTHM, +S1, +S2 - GI/Abdominal Exam GI & Abdominal Exam: Diminished Bowel Sounds, Soft. absent: Tenderness - Rectal Exam Rectal Exam: Deferred - Exam Exam: NORMAL INSPECTION - Extremities Exam Extremities exam: Negative for: calf tenderness, pedal edema - Back Exam Back exam: absent: CVA tenderness (L), CVA tenderness (R), paraspinal tenderness - Neurological Exam Neurological exam: Alert, CN II-XII Intact, Oriented x3, Reflexes Normal - Psychiatric Exam Psychiatric exam: Depressed - Skin Skin Exam: Dry Additional comments: left heel ulcer + charcot foot left Results - Vital Signs Recent Vital Signs: Last Vital Signs Temp 99.3 F 10/17/16 07:00 Pulse 77 10/17/16 07:00 Resp 20 10/17/16 07:00 BP 150/83 10/17/16 07:00 Pulse Ox 99 10/17/16 07:00 - Labs Result Diagrams: 10/18/16 09:23 10/18/16 09:23 Labs: Laboratory Results - last 24 hr 10/16/16 10/16/16 10/16/16 12:05 16:18 22:00 POC Glucose (mg/dL) 111 H 130 H 130 H 10/17/16 07:10 POC Glucose (mg/dL) 93 Assessment & Plan (1) ESRD (end stage renal disease) on dialysis Status: Acute (2) Acute abdominal pain syndrome Status: Acute (3) Generalized abdominal pain Status: Acute (4) Osteomyelitis of ankle or foot Status: Acute - Assessment and Plan (Free Text) Assessment: cont rx check cuultures podiatery eval iv antibiotics wound care
[2016-10-17] MEDS: Lidocaine 5% Patch TD SCH (10:41)
[2016-10-17] MEDS: Timolol 0.25% Ophth SOLN OD SCH ×2 (10:42→17:35)
[2016-10-17] MEDS: NIFEdipine 90 mg ER Tab PO SCH (10:42)
[2016-10-17] MEDS: Pantoprazole 40 mg EC Tab PO SCH (10:42)
--- NOTE | 2016-10-17 11:39 | CP.PCM.PN ---
Subjective - Date & Time of Evaluation Date of Evaluation: 10/17/16 Time of Evaluation: 10:00 - Subjective Subjective: C/o pain in Rt heel & foot No SOB Objective - Vital Signs/Intake and Output Vital Signs (last 24 hours): Temp Pulse Resp BP Pulse Ox 99.3 F 77 20 150/83 99 10/17/16 07:00 10/17/16 07:00 10/17/16 07:00 10/17/16 10:40 10/17/16 07:00 - Medications Medications: Current Medications Calcium Acetate (Phoslo) 667 mg PO TIDCC [facility] Carvedilol (Coreg) 25 mg PO BID [facility] Last Admin: 10/17/16 10:40 Dose: 25 mg Clonidine HCl (Catapres-Tts3 0.3 Mg/24 Hr) 1 patch TD Q7D@1000 [facility] Last Admin: 10/16/16 14:04 Dose: 1 patch Diphenhydramine HCl (Benadryl) 50 mg IVP Q6 PRN PRN Reason: Itching / Pruritus Last Admin: 10/17/16 08:21 Dose: 50 mg Epoetin Cornelius (Procrit) 10,000 unit IV MWF [facility] Last Admin: 10/16/16 11:54 Dose: 10,000 unit Gabapentin (Neurontin) 100 mg PO TID [facility] Last Admin: 10/17/16 10:41 Dose: 100 mg Heparin Sodium (Porcine) (Heparin) 5,000 units SC Q8 [facility] Last Admin: 10/17/16 06:47 Dose: 5,000 units Hydralazine HCl (Apresoline) 100 mg PO Q8 [facility] Last Admin: 10/17/16 06:46 Dose: 100 mg Hydromorphone HCl (Dilaudid) 0.5 mg IVP Q4H PRN PRN Reason: Pain, severe (8-10) Last Admin: 10/17/16 10:40 Dose: 0.5 mg Cefepime HCl (Maxipime Iv 1 Gm Premix) 1 gm in 50 mls @ 100 mls/hr IVPB Q24H [facility] Last Admin: 10/16/16 14:05 Dose: 100 mls/hr Linezolid (Zyvox 600mg/300ml D5w) 600 mg in 300 mls @ 200 mls/hr IVPB Q12H [facility] Last Admin: 10/17/16 06:45 Dose: 200 mls/hr Insulin Aspart (Novolog) 0 unit SC ACHS [facility] PRN Reason: Protocol Last Admin: 10/17/16 08:06 Dose: Not Given Lidocaine (Lidoderm) 1 ea TD DAILY [facility] Last Admin: 10/17/16 10:41 Dose: 1 ea Metoclopramide HCl (Reglan) 10 mg PO ACTID [facility] Last Admin: 10/17/16 06:47 Dose: 10 mg Nifedipine (Procardia Xl) 90 mg PO DAILY [facility] Last Admin: 10/17/16 10:42 Dose: 90 mg Oxycodone/Acetaminophen (Percocet 5/325 Mg Tab) 1 tab PO Q4H PRN PRN Reason: Pain, moderate (4-7) Stop: 10/19/16 03:37 Last Admin: 10/16/16 14:06 Dose: 1 tab Pantoprazole Sodium (Protonix Ec Tab) 40 mg PO DAILY [facility] Last Admin: 10/17/16 10:42 Dose: 40 mg Rosuvastatin Calcium (Crestor) 2.5 mg PO HS [facility] Last Admin: 10/16/16 22:28 Dose: 2.5 mg Timolol Maleate (Timoptic 0.25% Ophth Soln) 1 drop OD BID [facility] Last Admin: 10/17/16 10:42 Dose: Not Given - Respiratory Exam Respiratory Exam: NORMAL BREATHING PATTERN Additional comments: Lungs clear - Cardiovascular Exam Cardiovascular Exam: REGULAR RHYTHM - GI/Abdominal Exam GI & Abdominal Exam: Soft Additional comments: mild diffuse tenderness - Extremities Exam Additional comments: No edema Rt heel dressed Assessment and Plan - Assessment and Plan (Free Text) Assessment: ESRD Anemia . resistant to EDMAR therapy Suggest Heme evaluation Rt heel OM HTN now controlled Plan: Iron profile is pending Continue HD per schedule
[2016-10-17] MEDS: Cefepime IV 1 gm in Dextrose 1 GM/50 ML BAG IVPB SCH (12:25)
--- NOTE | 2016-10-17 14:08 | MRI ---
PROCEDURE: MRI lumbar spine 10/17/2016 HISTORY: HNP L5-S1 COMPARISON: No prior. TECHNIQUE: Multi-echo ho multiplanar sequences were performed through the lumbar spine without the use of intravenous contrast. FINDINGS: The current study reveals no acute compression fractures nor retropulsed fragments. There are however small to medium size Schmorl's nodes along the superior L2 as well as inferior L3 endplates with some very minor edema. . . Some very minimal chronic appearing anterior stature loss of the T11, T12 and to a lesser degree L1 segments The remaining lumbar vertebral bodies otherwise exhibit relatively normal stature. The vertebral bodies and facets normally aligned. At the L5-S1 level, there is relatively adequate disc hydration. Minor posterior disc space narrowing. No disc herniation or significant disc bulge. Central canal appears adequate. Facet joints are mildly hypertrophic. Exit foramina appear adequate. Similar changes seen at the L4-L5 level with no significant canal nor foraminal compromise. At the L3-L4 level, there is mild disc desiccation and posterior disc space narrowing. No disc herniation or disc bulge. Facet joints slightly hypertrophic with small amount of intra facet fluid right greater than left. Central canal and exit foramina appear adequate at this level. Similar changes seen at the L2-L3 and L1-L2 levels. Conus terminates at approximately the 6 best L1-L2 level. Impression: CT head No acute fractures however there are mild subacute to chronic Schmorl's nodes seen along L2 and L3 vertebral body segments as above. Very minor multilevel degenerative spondylosis.
--- NOTE | 2016-10-17 15:33 | CP.PCM.PN ---
Subjective - Date & Time of Evaluation Date of Evaluation: 10/17/16 Time of Evaluation: 20:00 - Subjective Subjective: pt seen and examined C/o pain in Rt heel & foot, back pain, MRI shows extensive degenerative changes No SOB. feeling some what better on physical therapy Objective - Vital Signs/Intake and Output Vital Signs (last 24 hours): Temp Pulse Resp BP Pulse Ox 99.3 F 79 20 153/76 H 99 10/17/16 07:00 10/17/16 13:53 10/17/16 07:00 10/17/16 13:53 10/17/16 07:00 - Medications Medications: Current Medications Calcium Acetate (Phoslo) 667 mg PO TIDCC [facility] Carvedilol (Coreg) 25 mg PO BID [facility] Last Admin: 10/17/16 10:40 Dose: 25 mg Clonidine HCl (Catapres-Tts3 0.3 Mg/24 Hr) 1 patch TD Q7D@1000 [facility] Last Admin: 10/16/16 14:04 Dose: 1 patch Diphenhydramine HCl (Benadryl) 50 mg IVP Q6 PRN PRN Reason: Itching / Pruritus Last Admin: 10/17/16 08:21 Dose: 50 mg Epoetin Cornelius (Procrit) 10,000 unit IV MWF [facility] Last Admin: 10/16/16 11:54 Dose: 10,000 unit Gabapentin (Neurontin) 100 mg PO TID [facility] Last Admin: 10/17/16 13:47 Dose: 100 mg Heparin Sodium (Porcine) (Heparin) 5,000 units SC Q8 [facility] Last Admin: 10/17/16 13:48 Dose: 5,000 units Hydralazine HCl (Apresoline) 100 mg PO Q8 [facility] Last Admin: 10/17/16 13:47 Dose: 100 mg Hydromorphone HCl (Dilaudid) 0.5 mg IVP Q4H PRN PRN Reason: Pain, severe (8-10) Last Admin: 10/17/16 15:11 Dose: 0.5 mg Cefepime HCl (Maxipime Iv 1 Gm Premix) 1 gm in 50 mls @ 100 mls/hr IVPB Q24H [facility] Last Admin: 10/17/16 12:25 Dose: 100 mls/hr Linezolid (Zyvox 600mg/300ml D5w) 600 mg in 300 mls @ 200 mls/hr IVPB Q12H [facility] Last Admin: 10/17/16 06:45 Dose: 200 mls/hr Insulin Aspart (Novolog) 0 unit SC ACHS [facility] PRN Reason: Protocol Last Admin: 10/17/16 12:23 Dose: Not Given Lidocaine (Lidoderm) 1 ea TD DAILY [facility] Last Admin: 10/17/16 10:41 Dose: 1 ea Metoclopramide HCl (Reglan) 10 mg PO ACTID [facility] Last Admin: 10/17/16 12:22 Dose: 10 mg Nifedipine (Procardia Xl) 90 mg PO DAILY [facility] Last Admin: 10/17/16 10:42 Dose: 90 mg Oxycodone/Acetaminophen (Percocet 5/325 Mg Tab) 1 tab PO Q4H PRN PRN Reason: Pain, moderate (4-7) Stop: 10/19/16 03:37 Last Admin: 10/16/16 14:06 Dose: 1 tab Pantoprazole Sodium (Protonix Ec Tab) 40 mg PO DAILY [facility] Last Admin: 10/17/16 10:42 Dose: 40 mg Rosuvastatin Calcium (Crestor) 2.5 mg PO HS [facility] Last Admin: 10/16/16 22:28 Dose: 2.5 mg Timolol Maleate (Timoptic 0.25% Ophth Soln) 1 drop OD BID [facility] Last Admin: 10/17/16 10:42 Dose: Not Given - Constitutional Appears: No Acute Distress - Head Exam Head Exam: ATRAUMATIC, NORMAL INSPECTION, NORMOCEPHALIC - Respiratory Exam Respiratory Exam: Clear to Ausculation Bilateral, NORMAL BREATHING PATTERN - Cardiovascular Exam Cardiovascular Exam: +S1, +S2 Additional comments: S3 positive - GI/Abdominal Exam GI & Abdominal Exam: Soft, Normal Bowel Sounds. absent: Tenderness Assessment and Plan (1) Abdominal pain Status: Acute (2) ESRD (end stage renal disease) on dialysis Status: Acute (3) Acute abdominal pain syndrome Status: Acute (4) Dyspnea Status: Acute (5) Back pain Assessment & Plan: MRI shows extensive chamges with disc bulges Status: Acute
[2016-10-17] MEDS: Rosuvastatin Calcium 2.5 mg Tab PO SCH (21:50)
[2016-10-18] MEDS: DiphenhydrAMINE 50 mg/ml Inj IVP PRN ×3 (00:27→14:06)
[2016-10-18] MEDS: HYDROmorphone 0.5 mg/0.5 ml ISec IVP PRN ×4 (00:28→12:35)
[2016-10-18] MEDS: Linezolid 600 mg in D5W 300 ml 600 MG/300 ML BAG IVPB SCH ×2 (06:14→18:47)
[2016-10-18] MEDS: (Novolog) Insulin Aspart, Recombinant 100 u/ml 10 ml vial SC SCH ×4 (08:13→22:03)
[2016-10-18 09:28] LABS: BASO # 0.1 K/uL (0.0-0.2); EOS # 0.9 K/uL (0.0-0.7); EOS % 9.8 % (0.0-4.0); HEMATOCRIT 25.4 % (34.0-47.0); LYMPH # 1.1 K/uL (1.0-4.3); LYMPH % 12.2 % (20.0-40.0); MEAN CELL VOLUME 94.8 fL (81.0-99.0); MEAN CORPUSCULAR HEMOGLOBIN 30.9 pg (27.0-31.0); MEAN CORPUSCULAR HGB CONC 32.6 g/dL (33.0-37.0); MEAN PLATELET VOLUME 7.7 fL (7.2-11.7); MONO # 0.7 K/uL (0.0-0.8); MONO % 7.7 % (0.0-10.0); RED CELL DISTRIBUTION WIDTH 18.6 % (11.5-14.5); WHITE BLOOD COUNT 9.4 K/uL (4.8-10.8)
[2016-10-18 09:40] LABS: POTASSIUM 5.9 mmol/L (3.6-5.2)
[2016-10-18 09:53] LABS: IRON 70 ug/dL (37-170)
[2016-10-18] MEDS: NIFEdipine 90 mg ER Tab PO SCH (10:05)
[2016-10-18] MEDS: Pantoprazole 40 mg EC Tab PO SCH (10:08)
--- NOTE | 2016-10-18 11:52 | CARD ---
APPROVED REPORT EKG Measurement Heart [id number] <Conclusion> Normal sinus rhythm Possible Left atrial enlargement Left axis deviation Abnormal ECG
[2016-10-18] MEDS: Epoetin Alfa 10,000 unit/ml Dialysis IV SCH (12:21)
[2016-10-18] MEDS: Cefepime IV 1 gm in Dextrose 1 GM/50 ML BAG IVPB SCH (14:00)
[2016-10-18] MEDS: Lidocaine 5% Patch TD SCH (14:04)
[2016-10-18] MEDS: Timolol 0.25% Ophth SOLN OD SCH ×2 (14:05→18:43)
--- NOTE | 2016-10-18 16:28 | CP.PCM.PN ---
Subjective - Date & Time of Evaluation Date of Evaluation: 10/18/16 Time of Evaluation: 04:00 - Subjective Subjective: Appears comfortable in bed Objective - Vital Signs/Intake and Output Vital Signs (last 24 hours): Temp Pulse Resp BP Pulse Ox 98.7 F 78 20 157/79 H 100 10/18/16 15:47 10/18/16 15:47 10/18/16 15:47 10/18/16 15:47 10/18/16 15:47 Intake and Output: 10/18/16 10/18/16 06:59 18:59 Intake Total 340 790 Balance 340 790 - Medications Medications: Current Medications Calcium Acetate (Phoslo) 667 mg PO TIDCC [facility] Last Admin: 10/18/16 14:07 Dose: Not Given Carvedilol (Coreg) 25 mg PO BID [facility] Last Admin: 10/18/16 10:00 Dose: Not Given Clonidine HCl (Catapres-Tts3 0.3 Mg/24 Hr) 1 patch TD Q7D@1000 [facility] Last Admin: 10/16/16 14:04 Dose: 1 patch Diphenhydramine HCl (Benadryl) 50 mg IVP Q6 PRN PRN Reason: Itching / Pruritus Last Admin: 10/18/16 06:13 Dose: 50 mg Epoetin Cornelius (Procrit) 10,000 unit IV MWF [facility] Last Admin: 10/18/16 12:21 Dose: 10,000 unit Gabapentin (Neurontin) 100 mg PO TID [facility] Last Admin: 10/18/16 14:06 Dose: 100 mg Heparin Sodium (Porcine) (Heparin) 5,000 units SC Q8 [facility] Last Admin: 10/18/16 14:06 Dose: 5,000 units Hydralazine HCl (Apresoline) 100 mg PO Q8 [facility] Last Admin: 10/18/16 14:05 Dose: 100 mg Hydromorphone HCl (Dilaudid) 0.5 mg IVP Q4H PRN PRN Reason: Pain, severe (8-10) Last Admin: 10/18/16 11:35 Dose: 0.5 mg Cefepime HCl (Maxipime Iv 1 Gm Premix) 1 gm in 50 mls @ 100 mls/hr IVPB Q24H [facility] Last Admin: 10/17/16 12:25 Dose: 100 mls/hr Linezolid (Zyvox 600mg/300ml D5w) 600 mg in 300 mls @ 200 mls/hr IVPB Q12H [facility] Last Admin: 10/18/16 06:14 Dose: 200 mls/hr Insulin Aspart (Novolog) 0 unit SC ACHS [facility] PRN Reason: Protocol Last Admin: 10/18/16 12:35 Dose: Not Given Lidocaine (Lidoderm) 1 ea TD DAILY [facility] Last Admin: 10/18/16 14:04 Dose: 1 ea Metoclopramide HCl (Reglan) 10 mg PO ACTID [facility] Last Admin: 10/18/16 14:08 Dose: Not Given Nifedipine (Procardia Xl) 90 mg PO DAILY [facility] Last Admin: 10/18/16 10:05 Dose: Not Given Oxycodone/Acetaminophen (Percocet 5/325 Mg Tab) 1 tab PO Q4H PRN PRN Reason: Pain, moderate (4-7) Stop: 10/19/16 03:37 Last Admin: 10/16/16 14:06 Dose: 1 tab Pantoprazole Sodium (Protonix Ec Tab) 40 mg PO DAILY [facility] Last Admin: 10/18/16 10:08 Dose: Not Given Rosuvastatin Calcium (Crestor) 2.5 mg PO HS [facility] Last Admin: 10/17/16 21:50 Dose: 2.5 mg Timolol Maleate (Timoptic 0.25% Ophth Soln) 1 drop OD BID [facility] Last Admin: 10/18/16 14:05 Dose: 1 drop - Labs Labs: 10/18/16 09:23 10/18/16 09:23 - Respiratory Exam Additional comments: Lungs clear - Cardiovascular Exam Cardiovascular Exam: REGULAR RHYTHM - Extremities Exam Additional comments: No edema Assessment and Plan - Assessment and Plan (Free Text) Assessment: ESRD HTN Anemia IDDM Plan: Stable on dialysis Tranfused 1 unit during dialysis Dialysis tolerated well
--- NOTE | 2016-10-18 18:38 | CP.PCM.PN ---
Subjective - Date & Time of Evaluation Date of Evaluation: 10/18/16 Time of Evaluation: 07:00 - Subjective Subjective: cultures reviiewed having iv access problems to cont rx Objective - Vital Signs/Intake and Output Vital Signs (last 24 hours): Temp Pulse Resp BP Pulse Ox 98.7 F 78 20 157/79 H 100 10/18/16 15:47 10/18/16 15:47 10/18/16 15:47 10/18/16 15:47 10/18/16 15:47 Intake and Output: 10/18/16 10/18/16 06:59 18:59 Intake Total 340 790 Balance 340 790 - Medications Medications: Current Medications Calcium Acetate (Phoslo) 667 mg PO TIDCC [facility] Last Admin: 10/18/16 14:07 Dose: Not Given Carvedilol (Coreg) 25 mg PO BID [facility] Last Admin: 10/18/16 10:00 Dose: Not Given Clonidine HCl (Catapres-Tts3 0.3 Mg/24 Hr) 1 patch TD Q7D@1000 [facility] Last Admin: 10/16/16 14:04 Dose: 1 patch Diphenhydramine HCl (Benadryl) 50 mg IVP Q6 PRN PRN Reason: Itching / Pruritus Last Admin: 10/18/16 06:13 Dose: 50 mg Epoetin Cornelius (Procrit) 10,000 unit IV MWF [facility] Last Admin: 10/18/16 12:21 Dose: 10,000 unit Gabapentin (Neurontin) 100 mg PO TID [facility] Last Admin: 10/18/16 14:06 Dose: 100 mg Heparin Sodium (Porcine) (Heparin) 5,000 units SC Q8 [facility] Last Admin: 10/18/16 14:06 Dose: 5,000 units Hydralazine HCl (Apresoline) 100 mg PO Q8 [facility] Last Admin: 10/18/16 14:05 Dose: 100 mg Hydromorphone HCl (Dilaudid) 0.5 mg IVP Q4H PRN PRN Reason: Pain, severe (8-10) Last Admin: 10/18/16 11:35 Dose: 0.5 mg Cefepime HCl (Maxipime Iv 1 Gm Premix) 1 gm in 50 mls @ 100 mls/hr IVPB Q24H [facility] Last Admin: 10/18/16 14:00 Dose: Not Given Linezolid (Zyvox 600mg/300ml D5w) 600 mg in 300 mls @ 200 mls/hr IVPB Q12H [facility] Last Admin: 10/18/16 06:14 Dose: 200 mls/hr Insulin Aspart (Novolog) 0 unit SC ACHS [facility] PRN Reason: Protocol Last Admin: 10/18/16 12:35 Dose: Not Given Lidocaine (Lidoderm) 1 ea TD DAILY [facility] Last Admin: 10/18/16 14:04 Dose: 1 ea Metoclopramide HCl (Reglan) 10 mg PO ACTID [facility] Last Admin: 10/18/16 14:08 Dose: Not Given Nifedipine (Procardia Xl) 90 mg PO DAILY [facility] Last Admin: 10/18/16 10:05 Dose: Not Given Oxycodone/Acetaminophen (Percocet 5/325 Mg Tab) 1 tab PO Q4H PRN PRN Reason: Pain, moderate (4-7) Stop: 10/19/16 03:37 Last Admin: 10/16/16 14:06 Dose: 1 tab Pantoprazole Sodium (Protonix Ec Tab) 40 mg PO DAILY [facility] Last Admin: 10/18/16 10:08 Dose: Not Given Rosuvastatin Calcium (Crestor) 2.5 mg PO HS [facility] Last Admin: 10/17/16 21:50 Dose: 2.5 mg Timolol Maleate (Timoptic 0.25% Ophth Soln) 1 drop OD BID [facility] Last Admin: 10/18/16 14:05 Dose: 1 drop - Labs Labs: 10/18/16 09:23 10/18/16 09:23 Assessment and Plan (1) ESRD (end stage renal disease) on dialysis Status: Acute (2) Acute abdominal pain syndrome Status: Acute (3) Generalized abdominal pain Status: Acute (4) Osteomyelitis of ankle or foot Status: Acute
[2016-10-18] MEDS: Oxycodone/Acetaminophen 5/325 mg Tab PO PRN (20:36)
[2016-10-18] MEDS: Rosuvastatin Calcium 2.5 mg Tab PO SCH (22:02)
--- NOTE | 2016-10-18 23:35 | CP.PCM.PN ---
Subjective - Date & Time of Evaluation Date of Evaluation: 10/18/16 Time of Evaluation: 10:00 - Subjective Subjective: Pt seen & evalauted, refuses to go to [facility] so she will go home on antibiotics, she feels better, no acute distress Objective - Vital Signs/Intake and Output Vital Signs (last 24 hours): Temp Pulse Resp BP Pulse Ox 98.7 F 78 20 157/79 H 100 10/18/16 15:47 10/18/16 15:47 10/18/16 15:47 10/18/16 18:41 10/18/16 15:47 Intake and Output: 10/18/16 10/19/16 18:59 06:59 Intake Total 790 Balance 790 - Medications Medications: Current Medications Calcium Acetate (Phoslo) 667 mg PO TIDCC [facility] Last Admin: 10/18/16 18:42 Dose: 667 mg Carvedilol (Coreg) 25 mg PO BID [facility] Last Admin: 10/18/16 18:41 Dose: 25 mg Clonidine HCl (Catapres-Tts3 0.3 Mg/24 Hr) 1 patch TD Q7D@1000 [facility] Last Admin: 10/16/16 14:04 Dose: 1 patch Diphenhydramine HCl (Benadryl) 50 mg IVP Q6 PRN PRN Reason: Itching / Pruritus Last Admin: 10/18/16 06:13 Dose: 50 mg Epoetin Cornelius (Procrit) 10,000 unit IV MWF [facility] Last Admin: 10/18/16 12:21 Dose: 10,000 unit Gabapentin (Neurontin) 100 mg PO TID [facility] Last Admin: 10/18/16 18:42 Dose: 100 mg Heparin Sodium (Porcine) (Heparin) 5,000 units SC Q8 [facility] Last Admin: 10/18/16 22:06 Dose: Not Given Hydralazine HCl (Apresoline) 100 mg PO Q8 [facility] Last Admin: 10/18/16 22:02 Dose: 100 mg Hydromorphone HCl (Dilaudid) 0.5 mg IVP Q4H PRN PRN Reason: Pain, severe (8-10) Last Admin: 10/18/16 11:35 Dose: 0.5 mg Cefepime HCl (Maxipime Iv 1 Gm Premix) 1 gm in 50 mls @ 100 mls/hr IVPB Q24H [facility] Last Admin: 10/18/16 14:00 Dose: Not Given Linezolid (Zyvox 600mg/300ml D5w) 600 mg in 300 mls @ 200 mls/hr IVPB Q12H [facility] Last Admin: 10/18/16 18:47 Dose: Not Given Insulin Aspart (Novolog) 0 unit SC ACHS [facility] PRN Reason: Protocol Last Admin: 10/18/16 22:03 Dose: Not Given Lidocaine (Lidoderm) 1 ea TD DAILY [facility] Last Admin: 10/18/16 14:04 Dose: 1 ea Metoclopramide HCl (Reglan) 10 mg PO ACTID [facility] Last Admin: 10/18/16 18:43 Dose: 10 mg Moxifloxacin HCl (Avelox) 400 mg PO Q24H [facility] Last Admin: 10/18/16 20:37 Dose: 400 mg Nifedipine (Procardia Xl) 90 mg PO DAILY [facility] Last Admin: 10/18/16 10:05 Dose: Not Given Oxycodone/Acetaminophen (Percocet 5/325 Mg Tab) 1 tab PO Q4H PRN PRN Reason: Pain, moderate (4-7) Stop: 10/19/16 03:37 Last Admin: 10/18/16 20:36 Dose: 1 tab Pantoprazole Sodium (Protonix Ec Tab) 40 mg PO DAILY [facility] Last Admin: 10/18/16 10:08 Dose: Not Given Rosuvastatin Calcium (Crestor) 2.5 mg PO HS [facility] Last Admin: 10/18/16 22:02 Dose: 2.5 mg Timolol Maleate (Timoptic 0.25% Ophth Soln) 1 drop OD BID [facility] Last Admin: 10/18/16 18:43 Dose: 1 drop - Labs Labs: 10/18/16 09:23 10/18/16 09:23 - Constitutional Appears: No Acute Distress - Head Exam Head Exam: ATRAUMATIC, NORMAL INSPECTION, NORMOCEPHALIC - Eye Exam Eye Exam: EOMI, Normal appearance, PERRL Pupil Exam: NORMAL ACCOMODATION, PERRL - ENT Exam ENT Exam: Mucous Membranes Moist, Normal Exam - Respiratory Exam Respiratory Exam: Clear to Ausculation Bilateral, NORMAL BREATHING PATTERN - Cardiovascular Exam Cardiovascular Exam: REGULAR RHYTHM, +S1, +S2. absent: Murmur - GI/Abdominal Exam GI & Abdominal Exam: Soft, Normal Bowel Sounds. absent: Tenderness Assessment and Plan (1) Abdominal pain Status: Acute (2) ESRD (end stage renal disease) on dialysis Status: Acute (3) Acute abdominal pain syndrome Status: Acute (4) Dyspnea Status: Acute (5) Back pain Status: Acute
[2016-10-19] MEDS: Linezolid 600 mg in D5W 300 ml 600 MG/300 ML BAG IVPB SCH ×2 (06:08→19:31)
[2016-10-19] MEDS: (Novolog) Insulin Aspart, Recombinant 100 u/ml 10 ml vial SC SCH ×4 (07:54→22:07)
[2016-10-19] MEDS: Pantoprazole 40 mg EC Tab PO SCH (09:25)
[2016-10-19] MEDS: Lidocaine 5% Patch TD SCH (09:25)
[2016-10-19] MEDS: Timolol 0.25% Ophth SOLN OD SCH ×2 (09:26→19:30)
[2016-10-19] MEDS: NIFEdipine 90 mg ER Tab PO SCH (09:26)
--- NOTE | 2016-10-19 12:49 | PCM.SURG1 ---
Surgeon's Initial Post Op Note - Surgeon's Notes Surgeon: Hossein Rodriguez Boat Carpenter: NONE Type of Anesthesia: Local Pre-Operative Diagnosis: Poor venous access Operative Findings: Malpositioned picc Post-Operative Diagnosis: Poor venous access Operation Performed: Right arm PICC exchange for a new single lumen picc, 35 cm. Tip in SVC. Specimen/Specimens Removed: None Estimated Blood Loss: EBL {In ML}: 2 Blood Products Given: N/A Drains Used: No Drains Post-Op Condition: Fair Date of Surgery/Procedure: 10/19/16 Time of Surgery/Procedure: 11:35
[2016-10-19] MEDS: HYDROmorphone 0.5 mg/0.5 ml ISec IVP PRN ×3 (12:52→23:46)
[2016-10-19] MEDS: DiphenhydrAMINE 50 mg/ml Inj IVP PRN ×2 (12:54→23:46)
--- NOTE | 2016-10-19 13:03 | CP.PCM.PN ---
Subjective - Date & Time of Evaluation Date of Evaluation: 10/19/16 Time of Evaluation: 12:30 - Subjective Subjective: C/o SOB Appears dyspneic Objective - Vital Signs/Intake and Output Vital Signs (last 24 hours): Temp Pulse Resp BP Pulse Ox 98.3 F 78 20 118/74 97 10/19/16 07:00 10/19/16 07:00 10/19/16 07:00 10/19/16 09:25 10/19/16 07:00 Intake and Output: 10/19/16 10/19/16 06:59 18:59 Intake Total 240 Balance 240 - Medications Medications: Current Medications Calcium Acetate (Phoslo) 667 mg PO TIDCC [facility] Last Admin: 10/19/16 08:15 Dose: 667 mg Carvedilol (Coreg) 25 mg PO BID [facility] Last Admin: 10/19/16 09:25 Dose: 25 mg Clonidine HCl (Catapres-Tts3 0.3 Mg/24 Hr) 1 patch TD Q7D@1000 [facility] Last Admin: 10/16/16 14:04 Dose: 1 patch Diphenhydramine HCl (Benadryl) 50 mg IVP Q6 PRN PRN Reason: Itching / Pruritus Last Admin: 10/19/16 12:54 Dose: 50 mg Epoetin Cornelius (Procrit) 10,000 unit IV MWF [facility] Last Admin: 10/18/16 12:21 Dose: 10,000 unit Gabapentin (Neurontin) 100 mg PO TID [facility] Last Admin: 10/19/16 09:25 Dose: 100 mg Heparin Sodium (Porcine) (Heparin) 5,000 units SC Q8 [facility] Last Admin: 10/19/16 05:36 Dose: 5,000 units Hydralazine HCl (Apresoline) 100 mg PO Q8 [facility] Last Admin: 10/19/16 05:36 Dose: 100 mg Hydromorphone HCl (Dilaudid) 0.5 mg IVP Q4H PRN PRN Reason: Pain, severe (8-10) Last Admin: 10/19/16 12:52 Dose: 0.5 mg Cefepime HCl (Maxipime Iv 1 Gm Premix) 1 gm in 50 mls @ 100 mls/hr IVPB Q24H [facility] Last Admin: 10/18/16 14:00 Dose: Not Given Linezolid (Zyvox 600mg/300ml D5w) 600 mg in 300 mls @ 200 mls/hr IVPB Q12H [facility] Last Admin: 10/19/16 06:08 Dose: Not Given Insulin Aspart (Novolog) 0 unit SC ACHS [facility] PRN Reason: Protocol Last Admin: 10/19/16 07:54 Dose: Not Given Lidocaine (Lidoderm) 1 ea TD DAILY [facility] Last Admin: 10/19/16 09:25 Dose: 1 ea Metoclopramide HCl (Reglan) 10 mg PO ACTID [facility] Last Admin: 10/19/16 10:39 Dose: 10 mg Moxifloxacin HCl (Avelox) 400 mg PO Q24H [facility] Last Admin: 10/18/16 20:37 Dose: 400 mg Nifedipine (Procardia Xl) 90 mg PO DAILY [facility] Last Admin: 10/19/16 09:26 Dose: 90 mg Pantoprazole Sodium (Protonix Ec Tab) 40 mg PO DAILY [facility] Last Admin: 10/19/16 09:25 Dose: 40 mg Rosuvastatin Calcium (Crestor) 2.5 mg PO HS [facility] Last Admin: 10/18/16 22:02 Dose: 2.5 mg Timolol Maleate (Timoptic 0.25% Ophth Soln) 1 drop OD BID [facility] Last Admin: 10/19/16 09:26 Dose: 1 drop - Labs Labs: 10/18/16 09:23 10/18/16 09:23 - Respiratory Exam Additional comments: Lungs basilar crackles - Cardiovascular Exam Cardiovascular Exam: REGULAR RHYTHM - Extremities Exam Extremities Exam: Pedal Edema Assessment and Plan - Assessment and Plan (Free Text) Assessment: ESRD Fluid overload Rt heel foot ulcer/OM Plan: Extra HD is ordered for today Attempt UF 3-4 Kg as tolerated
[2016-10-19] MEDS: Cefepime IV 1 gm in Dextrose 1 GM/50 ML BAG IVPB SCH (13:07)
--- NOTE | 2016-10-19 15:34 | RAD ---
PROCEDURE: Date of procedure: 10/19/2016 Procedure: 1. Placement of a right arm PICC with ultrasound and fluoroscopic guidance, CPT 78388 2. PICC tip confirmation with spot radiograph and is in the superior vena cava Medications: 4 cc 1 percent lidocaine Total Fluoro time: 6.4 seconds Radiation: 0.0149 mGyM2 EBL: 2 cc HISTORY: Malpositioned picc TECHNIQUE: Following informed consent and procedure time-out, the patient was placed supine on the interventional table and the right arm PICC and surrounding skin prepped and draped in the usual sterile fashion. Fluoroscopic image showed the PICC within the axillary vein. The existing PICC was removed over a guidewire. A new single-lumen 4 American PICC was trimmed to 35 centimeters and advanced through a peel-away sheath. The PICC was position with tip of PICC confirm a spot radiograph the superior vena cava. The PICC was secured to the patient's skin. The PICC was flushed. A biopatch and sterile dressing was applied. IMPRESSION: Placement of a single-lumen 4 American PICC trimmed to 35 centimeters via right basilic vein. The tip of the PICC is confirmed with spot radiograph and is in the superior vena cava.
[2016-10-19] MEDS ORDERED: DiphenhydrAMINE 50 mg/ml Inj IVP STA (15:51)
--- NOTE | 2016-10-19 18:53 | NM ---
COMPARISON: October 19, 2016. Single-view chest TECHNIQUE: 9.0 mCi technetium 99-m Xe-133 Gas. 3.0 mCI technetium 99-m MAA administered intravenously. FINDINGS: VENTILATION COMPONENT: Mildly heterogeneous ventilation consistent with findings on recent chest radiograph. PERFUSION COMPONENT: Heterogeneous distribution of radionuclide. No geographic, segmental, lobar abnormalities apparent on the present examination. IMPRESSION: Low probability ventilation perfusion scan for pulmonary embolism. Study finished 18:46. Study interpreted an available an electronic medical record at 18:50.
[2016-10-19] MEDS: Rosuvastatin Calcium 2.5 mg Tab PO SCH (22:00)
--- NOTE | 2016-10-19 23:38 | CP.PCM.PN ---
Subjective - Date & Time of Evaluation Date of Evaluation: 10/19/16 Time of Evaluation: 09:15 - Subjective Subjective: Pt is c/o SOB, vitals are stable, not coughing and wheezing, seems to be anxious , saturation is normal, pt is hyperventilating might be due to fluid overload and pt need HD Objective - Vital Signs/Intake and Output Vital Signs (last 24 hours): Temp Pulse Resp BP Pulse Ox 98.7 F 80 20 135/74 100 10/19/16 17:00 10/19/16 17:00 10/19/16 17:00 10/19/16 22:00 10/19/16 17:00 Intake and Output: 10/19/16 10/20/16 18:59 06:59 Intake Total 580 Balance 580 - Medications Medications: Current Medications Calcium Acetate (Phoslo) 667 mg PO TIDCC [facility] Last Admin: 10/19/16 19:30 Dose: 667 mg Carvedilol (Coreg) 25 mg PO BID [facility] Last Admin: 10/19/16 19:21 Dose: 25 mg Clonidine HCl (Catapres-Tts3 0.3 Mg/24 Hr) 1 patch TD Q7D@1000 [facility] Last Admin: 10/16/16 14:04 Dose: 1 patch Diphenhydramine HCl (Benadryl) 25 mg IVP Q6 PRN PRN Reason: Itching / Pruritus Epoetin Cornelius (Procrit) 10,000 unit IV MWF [facility] Last Admin: 10/18/16 12:21 Dose: 10,000 unit Gabapentin (Neurontin) 100 mg PO TID [facility] Last Admin: 10/19/16 19:21 Dose: 100 mg Heparin Sodium (Porcine) (Heparin) 5,000 units SC Q8 [facility] Last Admin: 10/19/16 22:00 Dose: 5,000 units Hydralazine HCl (Apresoline) 100 mg PO Q8 [facility] Last Admin: 10/19/16 22:00 Dose: 100 mg Hydromorphone HCl (Dilaudid) 0.5 mg IVP Q4H PRN PRN Reason: Pain, severe (8-10) Last Admin: 10/19/16 19:20 Dose: 0.5 mg Cefepime HCl (Maxipime Iv 1 Gm Premix) 1 gm in 50 mls @ 100 mls/hr IVPB Q24H [facility] Last Admin: 10/19/16 13:07 Dose: 100 mls/hr Linezolid (Zyvox 600mg/300ml D5w) 600 mg in 300 mls @ 200 mls/hr IVPB Q12H [facility] Last Admin: 10/19/16 19:31 Dose: 200 mls/hr Insulin Aspart (Novolog) 0 unit SC ACHS [facility] PRN Reason: Protocol Last Admin: 10/19/16 22:07 Dose: Not Given Lidocaine (Lidoderm) 1 ea TD DAILY [facility] Last Admin: 10/19/16 09:25 Dose: 1 ea Metoclopramide HCl (Reglan) 10 mg PO ACTID [facility] Last Admin: 10/19/16 19:21 Dose: 10 mg Moxifloxacin HCl (Avelox) 400 mg PO Q24H [facility] Last Admin: 10/19/16 19:21 Dose: 400 mg Nifedipine (Procardia Xl) 90 mg PO DAILY [facility] Last Admin: 10/19/16 09:26 Dose: 90 mg Pantoprazole Sodium (Protonix Ec Tab) 40 mg PO DAILY [facility] Last Admin: 10/19/16 09:25 Dose: 40 mg Rosuvastatin Calcium (Crestor) 2.5 mg PO HS [facility] Last Admin: 10/19/16 22:00 Dose: 2.5 mg Timolol Maleate (Timoptic 0.25% Oph Soln) 1 drop OD BID [facility] Last Admin: 10/19/16 19:30 Dose: 1 drop - Labs Labs: 10/18/16 09:23 10/18/16 09:23 - Constitutional Appears: No Acute Distress, Chronically Ill - Eye Exam Eye Exam: EOMI, Normal appearance, PERRL Pupil Exam: NORMAL ACCOMODATION, PERRL - Respiratory Exam Respiratory Exam: Decreased Breath Sounds, Rales, Rhonchi - Cardiovascular Exam Cardiovascular Exam: REGULAR RHYTHM, +S1, +S2. absent: Murmur - GI/Abdominal Exam GI & Abdominal Exam: Soft, Normal Bowel Sounds. absent: Tenderness - Extremities Exam Extremities Exam: Pedal Edema, Tenderness - Back Exam Back Exam: muscle spasm - Neurological Exam Neurological Exam: Alert, Awake, CN II-XII Intact, Normal Gait, Oriented x3 - Psychiatric Exam Psychiatric exam: Anxious Assessment and Plan (1) Abdominal pain Status: Inactive (2) ESRD (end stage renal disease) on dialysis Status: Chronic (3) Acute abdominal pain syndrome Status: Chronic (4) Dyspnea Status: Resolved (5) Back pain Status: Chronic
[2016-10-20] MEDS: HYDROmorphone 0.5 mg/0.5 ml ISec IVP PRN ×3 (04:07→14:46)
[2016-10-20] MEDS: Linezolid 600 mg in D5W 300 ml 600 MG/300 ML BAG IVPB SCH ×2 (06:00→20:00)
[2016-10-20 06:51] LABS: POTASSIUM 5.2 mmol/L (3.6-5.2)
[2016-10-20 06:55] LABS: PHOSPHOROUS 3.6 mg/dL (2.5-4.5)
[2016-10-20 07:30] LABS: HEMATOCRIT 27.5 % (34.0-47.0); MEAN CELL VOLUME 94.4 fL (81.0-99.0); WHITE BLOOD COUNT 10.8 K/uL (4.8-10.8)
[2016-10-20 07:38] LABS: MEAN CORPUSCULAR HEMOGLOBIN 31.3 pg (27.0-31.0); MEAN CORPUSCULAR HGB CONC 33.2 g/dL (33.0-37.0); MEAN PLATELET VOLUME 8.5 fL (7.2-11.7); RED CELL DISTRIBUTION WIDTH 19.1 % (11.5-14.5)
[2016-10-20] MEDS: (Novolog) Insulin Aspart, Recombinant 100 u/ml 10 ml vial SC SCH ×4 (07:41→21:26)
[2016-10-20] MEDS: DiphenhydrAMINE 50 mg/ml Inj IVP PRN ×3 (08:52→21:51)
[2016-10-20] MEDS: Timolol 0.25% Ophth SOLN OD SCH ×2 (09:37→17:55)
[2016-10-20] MEDS: Lidocaine 5% Patch TD SCH (09:37)
[2016-10-20] MEDS: Pantoprazole 40 mg EC Tab PO SCH (09:56)
[2016-10-20] MEDS: NIFEdipine 90 mg ER Tab PO SCH (10:00)
--- NOTE | 2016-10-20 10:54 | CP.PCM.PN ---
Subjective - Date & Time of Evaluation Date of Evaluation: 10/20/16 Time of Evaluation: 10:50 - Subjective Subjective: Seen on dialysis No respiratory distress noted Objective - Vital Signs/Intake and Output Vital Signs (last 24 hours): Temp Pulse Resp BP Pulse Ox 98.1 F 76 20 148/76 99 10/20/16 07:15 10/20/16 07:15 10/20/16 07:15 10/20/16 07:15 10/20/16 07:15 Intake and Output: 10/20/16 10/20/16 06:59 18:59 Intake Total 800 Balance 800 - Medications Medications: Current Medications Calcium Acetate (Phoslo) 667 mg PO TIDCC [facility] Last Admin: 10/20/16 08:05 Dose: 667 mg Carvedilol (Coreg) 25 mg PO BID [facility] Last Admin: 10/19/16 19:21 Dose: 25 mg Clonidine HCl (Catapres-Tts3 0.3 Mg/24 Hr) 1 patch TD Q7D@1000 [facility] Last Admin: 10/16/16 14:04 Dose: 1 patch Diphenhydramine HCl (Benadryl) 25 mg IVP Q6 PRN PRN Reason: Itching / Pruritus Last Admin: 10/20/16 08:52 Dose: 25 mg Epoetin Cornelius (Procrit) 10,000 unit IV MWF [facility] Last Admin: 10/18/16 12:21 Dose: 10,000 unit Gabapentin (Neurontin) 100 mg PO TID [facility] Last Admin: 10/20/16 09:56 Dose: 100 mg Heparin Sodium (Porcine) (Heparin) 5,000 units SC Q8 [facility] Last Admin: 10/20/16 05:52 Dose: Not Given Hydralazine HCl (Apresoline) 100 mg PO Q8 [facility] Last Admin: 10/20/16 05:51 Dose: 100 mg Hydromorphone HCl (Dilaudid) 0.5 mg IVP Q4H PRN PRN Reason: Pain, severe (8-10) Last Admin: 10/20/16 08:50 Dose: 0.5 mg Cefepime HCl (Maxipime Iv 1 Gm Premix) 1 gm in 50 mls @ 100 mls/hr IVPB Q24H [facility] Last Admin: 10/19/16 13:07 Dose: 100 mls/hr Linezolid (Zyvox 600mg/300ml D5w) 600 mg in 300 mls @ 200 mls/hr IVPB Q12H [facility] Last Admin: 10/20/16 06:00 Dose: 200 mls/hr Insulin Aspart (Novolog) 0 unit SC ACHS [facility] PRN Reason: Protocol Last Admin: 10/20/16 07:41 Dose: Not Given Lidocaine (Lidoderm) 1 ea TD DAILY [facility] Last Admin: 10/20/16 09:37 Dose: 1 ea Metoclopramide HCl (Reglan) 10 mg PO ACTID [facility] Last Admin: 10/20/16 06:47 Dose: 10 mg Moxifloxacin HCl (Avelox) 400 mg PO Q24H [facility] Last Admin: 10/19/16 19:21 Dose: 400 mg Nifedipine (Procardia Xl) 90 mg PO DAILY [facility] Last Admin: 10/19/16 09:26 Dose: 90 mg Pantoprazole Sodium (Protonix Ec Tab) 40 mg PO DAILY [facility] Last Admin: 10/20/16 09:56 Dose: 40 mg Rosuvastatin Calcium (Crestor) 2.5 mg PO HS [facility] Last Admin: 10/19/16 22:00 Dose: 2.5 mg Timolol Maleate (Timoptic 0.25% [facility] Soln) 1 drop OD BID [facility] Last Admin: 10/20/16 09:37 Dose: 1 drop - Labs Labs: 10/20/16 06:28 10/20/16 06:28 - Respiratory Exam Additional comments: Lungs clear - Cardiovascular Exam Cardiovascular Exam: REGULAR RHYTHM - Extremities Exam Additional comments: No edema Assessment and Plan - Assessment and Plan (Free Text) Assessment: ESRD Fluid overload IDDM RT heel OM Plan: Receiving scheduled HD today Fluid removal as tolerated today Saturation is good & no dyspnea noted
--- NOTE | 2016-10-20 11:29 | RAD ---
HISTORY: Shortness of breath COMPARISON: 10/15/2016. FINDINGS: LUNGS: The lungs are clear. PLEURA: No significant pleural effusion identified, no pneumothorax apparent. CARDIOVASCULAR: Normal. OSSEOUS STRUCTURES: No significant abnormalities. VISUALIZED UPPER ABDOMEN: Normal. OTHER FINDINGS: None. IMPRESSION: No active pulmonary disease.
[2016-10-20] MEDS: Epoetin Alfa 10,000 unit/ml Dialysis IV SCH (13:19)
[2016-10-20] MEDS: Cefepime IV 1 gm in Dextrose 1 GM/50 ML BAG IVPB SCH (14:47)
--- NOTE | 2016-10-20 14:47 | CP.PCM.PN ---
Subjective - Date & Time of Evaluation Date of Evaluation: 10/20/16 Time of Evaluation: 09:00 - Subjective Subjective: improving afeb nad Objective - Vital Signs/Intake and Output Vital Signs (last 24 hours): Temp Pulse Resp BP Pulse Ox 98.3 F 80 18 103/41 L 99 10/20/16 10:20 10/20/16 12:50 10/20/16 12:50 10/20/16 12:50 10/20/16 12:50 Intake and Output: 10/20/16 10/20/16 06:59 18:59 Intake Total 800 50 Balance 800 50 - Medications Medications: Current Medications Calcium Acetate (Phoslo) 667 mg PO TIDCC [facility] Last Admin: 10/20/16 12:00 Dose: Not Given Carvedilol (Coreg) 25 mg PO BID [facility] Last Admin: 10/20/16 10:00 Dose: Not Given Clonidine HCl (Catapres-Tts3 0.3 Mg/24 Hr) 1 patch TD Q7D@1000 [facility] Last Admin: 10/16/16 14:04 Dose: 1 patch Diphenhydramine HCl (Benadryl) 25 mg IVP Q6 PRN PRN Reason: Itching / Pruritus Last Admin: 10/20/16 08:52 Dose: 25 mg Epoetin Cornelius (Procrit) 10,000 unit IV MWF [facility] Last Admin: 10/20/16 13:19 Dose: 10,000 unit Gabapentin (Neurontin) 100 mg PO TID [facility] Last Admin: 10/20/16 09:56 Dose: 100 mg Heparin Sodium (Porcine) (Heparin) 5,000 units SC Q8 [facility] Last Admin: 10/20/16 05:52 Dose: Not Given Hydralazine HCl (Apresoline) 100 mg PO Q8 [facility] Last Admin: 10/20/16 13:28 Dose: Not Given Hydromorphone HCl (Dilaudid) 0.5 mg IVP Q4H PRN PRN Reason: Pain, severe (8-10) Last Admin: 10/20/16 08:50 Dose: 0.5 mg Cefepime HCl (Maxipime Iv 1 Gm Premix) 1 gm in 50 mls @ 100 mls/hr IVPB Q24H [facility] Last Admin: 10/19/16 13:07 Dose: 100 mls/hr Linezolid (Zyvox 600mg/300ml D5w) 600 mg in 300 mls @ 200 mls/hr IVPB Q12H [facility] Last Admin: 10/20/16 06:00 Dose: 200 mls/hr Insulin Aspart (Novolog) 0 unit SC ACHS [facility] PRN Reason: Protocol Last Admin: 10/20/16 12:00 Dose: Not Given Lidocaine (Lidoderm) 1 ea TD DAILY [facility] Last Admin: 10/20/16 09:37 Dose: 1 ea Metoclopramide HCl (Reglan) 10 mg PO ACTID [facility] Last Admin: 10/20/16 11:30 Dose: Not Given Moxifloxacin HCl (Avelox) 400 mg PO Q24H [facility] Last Admin: 10/19/16 19:21 Dose: 400 mg Nifedipine (Procardia Xl) 90 mg PO DAILY [facility] Last Admin: 10/20/16 10:00 Dose: Not Given Pantoprazole Sodium (Protonix Ec Tab) 40 mg PO DAILY [facility] Last Admin: 10/20/16 09:56 Dose: 40 mg Rosuvastatin Calcium (Crestor) 2.5 mg PO HS [facility] Last Admin: 10/19/16 22:00 Dose: 2.5 mg Timolol Maleate (Timoptic 0.25% Ophth Soln) 1 drop OD BID [facility] Last Admin: 10/20/16 09:37 Dose: 1 drop - Labs Labs: 10/20/16 06:28 10/20/16 06:28 - Constitutional Appears: Non-toxic, Chronically Ill - Head Exam Head Exam: NORMOCEPHALIC - Eye Exam Eye Exam: PERRL. absent: Scleral icterus - ENT Exam ENT Exam: Mucous Membranes Dry, Normal External Ear Exam - Neck Exam Neck Exam: absent: Lymphadenopathy - Respiratory Exam Respiratory Exam: Decreased Breath Sounds, Rhonchi - Cardiovascular Exam Cardiovascular Exam: REGULAR RHYTHM, +S1, +S2 - GI/Abdominal Exam GI & Abdominal Exam: Distended, Soft. absent: Tenderness - Rectal Exam Rectal Exam: Deferred - Exam Exam: NORMAL INSPECTION - Extremities Exam Extremities Exam: Pedal Edema, Tenderness. absent: Calf Tenderness - Back Exam Back Exam: absent: CVA tenderness (L), CVA tenderness (R) - Neurological Exam Neurological Exam: Alert, Awake, Oriented x3 - Psychiatric Exam Psychiatric exam: Depressed - Skin Skin Exam: Dry Assessment and Plan (1) ESRD (end stage renal disease) on dialysis Status: Acute (2) Acute abdominal pain syndrome Status: Acute (3) Generalized abdominal pain Status: Acute (4) Osteomyelitis of ankle or foot Status: Acute
[2016-10-20] MEDS: Rosuvastatin Calcium 2.5 mg Tab PO SCH (21:36)
--- NOTE | 2016-10-20 23:44 | CP.PCM.PN ---
Subjective - Date & Time of Evaluation Date of Evaluation: 10/20/16 Time of Evaluation: 10:00 - Subjective Subjective: Pt seen & examined, c/o generalized aches and pain all over body , no shortness of breath, pt is stable, apperas anxious and depressed Objective - Vital Signs/Intake and Output Vital Signs (last 24 hours): Temp Pulse Resp BP Pulse Ox 97.3 F L 83 20 172/84 H 100 10/20/16 16:59 10/20/16 16:59 10/20/16 16:59 10/20/16 17:38 10/20/16 16:59 Intake and Output: 10/20/16 10/21/16 18:59 06:59 Intake Total 50 620 Balance 50 620 - Medications Medications: Current Medications Calcium Acetate (Phoslo) 667 mg PO TIDCC [facility] Last Admin: 10/20/16 17:54 Dose: 667 mg Carvedilol (Coreg) 25 mg PO BID [facility] Last Admin: 10/20/16 17:38 Dose: 25 mg Clonidine HCl (Catapres-Tts3 0.3 Mg/24 Hr) 1 patch TD Q7D@1000 [facility] Last Admin: 10/16/16 14:04 Dose: 1 patch Diphenhydramine HCl (Benadryl) 25 mg IVP Q6 PRN PRN Reason: Itching / Pruritus Last Admin: 10/20/16 21:51 Dose: 25 mg Epoetin Cornelius (Procrit) 10,000 unit IV MWF [facility] Last Admin: 10/20/16 13:19 Dose: 10,000 unit Gabapentin (Neurontin) 100 mg PO TID [facility] Last Admin: 10/20/16 17:56 Dose: 100 mg Heparin Sodium (Porcine) (Heparin) 5,000 units SC Q8 [facility] Last Admin: 10/20/16 21:36 Dose: 5,000 units Hydralazine HCl (Apresoline) 100 mg PO Q8 [facility] Last Admin: 10/20/16 21:36 Dose: 100 mg Hydromorphone HCl (Dilaudid) 2 mg IVP Q6H PRN PRN Reason: Pain, severe (8-10) Last Admin: 10/20/16 21:51 Dose: 2 mg Cefepime HCl (Maxipime Iv 1 Gm Premix) 1 gm in 50 mls @ 100 mls/hr IVPB Q24H [facility] Last Admin: 10/20/16 14:47 Dose: 100 mls/hr Linezolid (Zyvox 600mg/300ml D5w) 600 mg in 300 mls @ 200 mls/hr IVPB Q12H [facility] Last Admin: 10/20/16 20:00 Dose: 200 mls/hr Insulin Aspart (Novolog) 0 unit SC ACHS [facility] PRN Reason: Protocol Last Admin: 10/20/16 21:26 Dose: Not Given Lidocaine (Lidoderm) 1 ea TD DAILY [facility] Last Admin: 10/20/16 09:37 Dose: 1 ea Metoclopramide HCl (Reglan) 10 mg PO ACTID [facility] Last Admin: 10/20/16 17:30 Dose: 10 mg Moxifloxacin HCl (Avelox) 400 mg PO Q24H [facility] Last Admin: 10/20/16 17:49 Dose: 400 mg Nifedipine (Procardia Xl) 90 mg PO DAILY [facility] Last Admin: 10/20/16 10:00 Dose: Not Given Pantoprazole Sodium (Protonix Ec Tab) 40 mg PO DAILY [facility] Last Admin: 10/20/16 09:56 Dose: 40 mg Rosuvastatin Calcium (Crestor) 2.5 mg PO HS [facility] Last Admin: 10/20/16 21:36 Dose: 2.5 mg Timolol Maleate (Timoptic 0.25% Oph Soln) 1 drop OD BID [facility] Last Admin: 10/20/16 17:55 Dose: 1 drop - Labs Labs: 10/20/16 06:28 10/20/16 06:28 Assessment and Plan (1) Abdominal pain Status: Inactive (2) ESRD (end stage renal disease) on dialysis Status: Chronic (3) Acute abdominal pain syndrome Status: Chronic (4) Dyspnea Status: Resolved (5) Back pain Status: Chronic
[2016-10-21] MEDS: DiphenhydrAMINE 50 mg/ml Inj IVP PRN ×3 (05:09→18:54)
[2016-10-21] MEDS: Linezolid 600 mg in D5W 300 ml 600 MG/300 ML BAG IVPB SCH ×2 (06:32→18:05)
[2016-10-21] MEDS: (Novolog) Insulin Aspart, Recombinant 100 u/ml 10 ml vial SC SCH ×4 (07:31→22:00)
[2016-10-21] MEDS: NIFEdipine 90 mg ER Tab PO SCH (10:30)
[2016-10-21] MEDS: Pantoprazole 40 mg EC Tab PO SCH (10:30)
[2016-10-21] MEDS: Timolol 0.25% Ophth SOLN OD SCH ×2 (10:32→18:13)
[2016-10-21] MEDS: Lidocaine 5% Patch TD SCH (10:33)
[2016-10-21] MEDS: Cefepime IV 1 gm in Dextrose 1 GM/50 ML BAG IVPB SCH (13:44)
--- NOTE | 2016-10-21 17:18 | CP.PCM.PN ---
Subjective - Date & Time of Evaluation Date of Evaluation: 10/21/16 Time of Evaluation: 05:00 - Subjective Subjective: C/o back pain & some times gets SOB Objective - Vital Signs/Intake and Output Vital Signs (last 24 hours): Temp Pulse Resp BP Pulse Ox 98.9 F 83 18 119/61 99 10/21/16 15:58 10/21/16 15:58 10/21/16 15:58 10/21/16 15:58 10/21/16 15:58 Intake and Output: 10/21/16 10/21/16 06:59 18:59 Intake Total 870 50 Balance 870 50 - Medications Medications: Current Medications Calcium Acetate (Phoslo) 667 mg PO TIDCC [facility] Last Admin: 10/21/16 12:40 Dose: 667 mg Carvedilol (Coreg) 25 mg PO BID [facility] Last Admin: 10/21/16 10:33 Dose: 25 mg Clonidine HCl (Catapres-Tts3 0.3 Mg/24 Hr) 1 patch TD Q7D@1000 [facility] Last Admin: 10/16/16 14:04 Dose: 1 patch Diphenhydramine HCl (Benadryl) 25 mg IVP Q6 PRN PRN Reason: Itching / Pruritus Last Admin: 10/21/16 10:31 Dose: 25 mg Epoetin Cornelius (Procrit) 10,000 unit IV MWF [facility] Last Admin: 10/20/16 13:19 Dose: 10,000 unit Gabapentin (Neurontin) 100 mg PO TID [facility] Last Admin: 10/21/16 13:44 Dose: 100 mg Hydralazine HCl (Apresoline) 100 mg PO Q8 [facility] Last Admin: 10/21/16 13:52 Dose: 100 mg Hydromorphone HCl (Dilaudid) 2 mg PO Q6 PRN PRN Reason: Pain, severe (8-10) Linezolid (Zyvox 600mg/300ml D5w) 600 mg in 300 mls @ 200 mls/hr IVPB Q12H [facility] Last Admin: 10/21/16 06:32 Dose: 200 mls/hr Insulin Aspart (Novolog) 0 unit SC ACHS [facility] PRN Reason: Protocol Last Admin: 10/21/16 12:40 Dose: Not Given Lidocaine (Lidoderm) 1 ea TD DAILY [facility] Last Admin: 10/21/16 10:33 Dose: 1 ea Metoclopramide HCl (Reglan) 10 mg PO ACTID [facility] Last Admin: 10/21/16 12:30 Dose: 10 mg Moxifloxacin HCl (Avelox) 400 mg PO Q24H [facility] Last Admin: 10/20/16 17:49 Dose: 400 mg Nifedipine (Procardia Xl) 90 mg PO DAILY [facility] Last Admin: 10/21/16 10:30 Dose: 90 mg Pantoprazole Sodium (Protonix Ec Tab) 40 mg PO DAILY [facility] Last Admin: 10/21/16 10:30 Dose: 40 mg Rosuvastatin Calcium (Crestor) 2.5 mg PO HS [facility] Last Admin: 10/20/16 21:36 Dose: 2.5 mg Timolol Maleate (Timoptic 0.25% [facility] Soln) 1 drop OD BID [facility] Last Admin: 10/21/16 10:32 Dose: 1 drop - Labs Labs: 10/20/16 06:28 10/20/16 06:28 - Respiratory Exam Additional comments: Lungs clear - Cardiovascular Exam Cardiovascular Exam: REGULAR RHYTHM - Extremities Exam Additional comments: No edema Assessment and Plan - Assessment and Plan (Free Text) Assessment: ESRD. Pt does not appear in resp distress or volume overloaded. Will observe closely HTN IDDM Back pain Plan: Fluid restriction Cont HD MWF
--- NOTE | 2016-10-21 18:00 | CP.PCM.PN ---
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 diabetic foot and waiting for acceptance at [facility] for [facility] Objective - Vital Signs/Intake and Output Vital Signs (last 24 hours): Temp Pulse Resp BP Pulse Ox 98.9 F 83 18 119/61 99 10/21/16 15:58 10/21/16 15:58 10/21/16 15:58 10/21/16 15:58 10/21/16 15:58 Intake and Output: 10/21/16 10/21/16 06:59 18:59 Intake Total 870 50 Balance 870 50 - Medications Medications: Current Medications Calcium Acetate (Phoslo) 667 mg PO TIDCC [facility] Last Admin: 10/21/16 12:40 Dose: 667 mg Carvedilol (Coreg) 25 mg PO BID [facility] Last Admin: 10/21/16 10:33 Dose: 25 mg Clonidine HCl (Catapres-Tts3 0.3 Mg/24 Hr) 1 patch TD Q7D@1000 [facility] Last Admin: 10/16/16 14:04 Dose: 1 patch Diphenhydramine HCl (Benadryl) 25 mg IVP Q6 PRN PRN Reason: Itching / Pruritus Last Admin: 10/21/16 10:31 Dose: 25 mg Epoetin Cornelius (Procrit) 10,000 unit IV MWF [facility] Last Admin: 10/20/16 13:19 Dose: 10,000 unit Gabapentin (Neurontin) 100 mg PO TID [facility] Last Admin: 10/21/16 13:44 Dose: 100 mg Hydralazine HCl (Apresoline) 100 mg PO Q8 [facility] Last Admin: 10/21/16 13:52 Dose: 100 mg Hydromorphone HCl (Dilaudid) 2 mg PO Q6 PRN PRN Reason: Pain, severe (8-10) Linezolid (Zyvox 600mg/300ml D5w) 600 mg in 300 mls @ 200 mls/hr IVPB Q12H [facility] Last Admin: 10/21/16 06:32 Dose: 200 mls/hr Insulin Aspart (Novolog) 0 unit SC ACHS [facility] PRN Reason: Protocol Last Admin: 10/21/16 17:00 Dose: Not Given Lidocaine (Lidoderm) 1 ea TD DAILY [facility] Last Admin: 10/21/16 10:33 Dose: 1 ea Metoclopramide HCl (Reglan) 10 mg PO ACTID [facility] Last Admin: 10/21/16 12:30 Dose: 10 mg Moxifloxacin HCl (Avelox) 400 mg PO Q24H [facility] Last Admin: 10/20/16 17:49 Dose: 400 mg Nifedipine (Procardia Xl) 90 mg PO DAILY [facility] Last Admin: 10/21/16 10:30 Dose: 90 mg Pantoprazole Sodium (Protonix Ec Tab) 40 mg PO DAILY [facility] Last Admin: 10/21/16 10:30 Dose: 40 mg Rosuvastatin Calcium (Crestor) 2.5 mg PO HS [facility] Last Admin: 10/20/16 21:36 Dose: 2.5 mg Timolol Maleate (Timoptic 0.25% Ophth Soln) 1 drop OD BID [facility] Last Admin: 10/21/16 10:32 Dose: 1 drop - Labs Labs: 10/20/16 06:28 10/20/16 06:28 - Constitutional Appears: Other (mild distress in pain) - Head Exam Head Exam: ATRAUMATIC, NORMAL INSPECTION, NORMOCEPHALIC - Eye Exam Eye Exam: EOMI, Normal appearance, PERRL Pupil Exam: NORMAL ACCOMODATION, PERRL - Respiratory Exam Respiratory Exam: Decreased Breath Sounds, Rales, Rhonchi - Cardiovascular Exam Cardiovascular Exam: REGULAR RHYTHM, +S1, +S2. absent: Murmur Assessment and Plan (1) Abdominal pain Status: Inactive (2) ESRD (end stage renal disease) on dialysis Status: Chronic (3) Acute abdominal pain syndrome Status: Chronic (4) Dyspnea Status: Resolved (5) Back pain Status: Chronic
[2016-10-21] MEDS: HYDROmorphone 0.5 mg/0.5 ml ISec IVP PRN (18:48)
[2016-10-21] MEDS: Rosuvastatin Calcium 2.5 mg Tab PO SCH (21:54)
[2016-10-22] MEDS: DiphenhydrAMINE 50 mg/ml Inj IVP PRN ×4 (00:03→19:24)
[2016-10-22] MEDS: HYDROmorphone 0.5 mg/0.5 ml ISec IVP PRN (00:04)
[2016-10-22] MEDS: HYDROmorphone 1 mg/ml ISec IVP PRN ×4 (06:09→21:14)
[2016-10-22] MEDS: Linezolid 600 mg in D5W 300 ml 600 MG/300 ML BAG IVPB SCH ×2 (06:11→19:20)
[2016-10-22] MEDS: (Novolog) Insulin Aspart, Recombinant 100 u/ml 10 ml vial SC SCH ×4 (08:02→22:07)
--- NOTE | 2016-10-22 08:38 | CARD ---
APPROVED REPORT EKG Measurement Heart [id number] <Conclusion> Normal sinus rhythm Possible Left atrial enlargement Left axis deviation Abnormal ECG
[2016-10-22] MEDS: NIFEdipine 90 mg ER Tab PO SCH (09:56)
[2016-10-22] MEDS: Pantoprazole 40 mg EC Tab PO SCH (09:56)
[2016-10-22] MEDS: Lidocaine 5% Patch TD SCH (09:57)
[2016-10-22] MEDS: Timolol 0.25% Ophth SOLN OD SCH ×2 (09:57→18:07)
--- NOTE | 2016-10-22 12:26 | CP.PCM.PN ---
Subjective - Date & Time of Evaluation Date of Evaluation: 10/22/16 Time of Evaluation: 12:00 - Subjective Subjective: C/o back spasms & feels very uncomfortable Objective - Vital Signs/Intake and Output Vital Signs (last 24 hours): Temp Pulse Resp BP Pulse Ox 98.3 F 76 20 119/60 98 10/22/16 08:51 10/22/16 08:51 10/22/16 08:51 10/22/16 09:56 10/22/16 08:51 Intake and Output: 10/22/16 10/22/16 06:59 18:59 Intake Total 400 Balance 400 - Medications Medications: Current Medications Calcium Acetate (Phoslo) 667 mg PO TIDCC [facility] Last Admin: 10/22/16 12:14 Dose: 667 mg Carvedilol (Coreg) 25 mg PO BID [facility] Last Admin: 10/22/16 09:56 Dose: 25 mg Clonidine HCl (Catapres-Tts3 0.3 Mg/24 Hr) 1 patch TD Q7D@1000 [facility] Last Admin: 10/16/16 14:04 Dose: 1 patch Diphenhydramine HCl (Benadryl) 25 mg IVP Q6 PRN PRN Reason: Itching / Pruritus Last Admin: 10/22/16 12:15 Dose: 25 mg Epoetin Cornelius (Procrit) 10,000 unit IV MWF [facility] Last Admin: 10/20/16 13:19 Dose: 10,000 unit Gabapentin (Neurontin) 100 mg PO TID [facility] Last Admin: 10/22/16 10:00 Dose: 100 mg Heparin Sodium (Porcine) (Heparin) 5,000 units SC Q8 [facility] Hydralazine HCl (Apresoline) 100 mg PO Q8 [facility] Last Admin: 10/22/16 06:05 Dose: 100 mg Hydromorphone HCl (Dilaudid) 0.5 mg IVP Q6H PRN PRN Reason: pain Last Admin: 10/22/16 12:15 Dose: 0.5 mg Linezolid (Zyvox 600mg/300ml D5w) 600 mg in 300 mls @ 200 mls/hr IVPB Q12H [facility] Last Admin: 10/22/16 06:11 Dose: 200 mls/hr Insulin Aspart (Novolog) 0 unit SC ACHS [facility] PRN Reason: Protocol Last Admin: 10/22/16 08:02 Dose: Not Given Lidocaine (Lidoderm) 1 ea TD DAILY [facility] Last Admin: 10/22/16 09:57 Dose: 1 ea Metoclopramide HCl (Reglan) 10 mg PO ACTID [facility] Last Admin: 10/22/16 12:14 Dose: 10 mg Moxifloxacin HCl (Avelox) 400 mg PO Q24H [facility] Last Admin: 10/21/16 18:03 Dose: 400 mg Nifedipine (Procardia Xl) 90 mg PO DAILY [facility] Last Admin: 10/22/16 09:56 Dose: 90 mg Pantoprazole Sodium (Protonix Ec Tab) 40 mg PO DAILY [facility] Last Admin: 10/22/16 09:56 Dose: 40 mg Rosuvastatin Calcium (Crestor) 2.5 mg PO HS [facility] Last Admin: 10/21/16 21:54 Dose: 2.5 mg Timolol Maleate (Timoptic 0.25% Ophth Soln) 1 drop OD BID [facility] Last Admin: 10/22/16 09:57 Dose: 1 drop - Labs Labs: 10/20/16 06:28 10/20/16 06:28 - Respiratory Exam Additional comments: Lungs clear - Cardiovascular Exam Cardiovascular Exam: REGULAR RHYTHM - Extremities Exam Additional comments: No edema Assessment and Plan - Assessment and Plan (Free Text) Assessment: ESRD Back pain XR, MRI were done Plan: For dialysis tomorrow Volume controlled Labs with dialysis tomorrow
[2016-10-22] MEDS: Cefepime 1 GM in Sodium Chloride 0.9% 100 ML IVPB SCH (14:33)
[2016-10-22] MEDS: Rosuvastatin Calcium 2.5 mg Tab PO SCH (21:14)
--- NOTE | 2016-10-22 23:28 | CP.PCM.PN ---
Subjective - Date & Time of Evaluation Date of Evaluation: 10/22/16 Time of Evaluation: 10:10 - Subjective Subjective: Pt is seen and examined, c/o shortness of breath, pt is anxious V/Q scan has been pending, pt is not coughing, wheezing, pt c/o pain multiple parts of body non specific, On HD, continue to monitor pt on telemetry Objective - Vital Signs/Intake and Output Vital Signs (last 24 hours): Temp Pulse Resp BP Pulse Ox 98.4 F 83 20 125/78 98 10/22/16 15:18 10/22/16 15:18 10/22/16 15:18 10/22/16 18:06 10/22/16 15:18 Intake and Output: 10/22/16 10/23/16 18:59 06:59 Intake Total 1100 Balance 1100 - Medications Medications: Current Medications Calcium Acetate (Phoslo) 667 mg PO TIDCC [facility] Last Admin: 10/22/16 18:07 Dose: 667 mg Carvedilol (Coreg) 25 mg PO BID [facility] Last Admin: 10/22/16 18:06 Dose: 25 mg Clonidine HCl (Catapres-Tts3 0.3 Mg/24 Hr) 1 patch TD Q7D@1000 [facility] Last Admin: 10/16/16 14:04 Dose: 1 patch Diphenhydramine HCl (Benadryl) 25 mg IVP Q6 PRN PRN Reason: Itching / Pruritus Last Admin: 10/22/16 19:24 Dose: 25 mg Epoetin Cornelius (Procrit) 10,000 unit IV MWF [facility] Last Admin: 10/20/16 13:19 Dose: 10,000 unit Gabapentin (Neurontin) 100 mg PO TID [facility] Last Admin: 10/22/16 18:07 Dose: 100 mg Heparin Sodium (Porcine) (Heparin) 5,000 units SC Q8 [facility] Last Admin: 10/22/16 21:15 Dose: 5,000 units Hydralazine HCl (Apresoline) 100 mg PO Q8 [facility] Last Admin: 10/22/16 21:14 Dose: 100 mg Hydromorphone HCl (Dilaudid) 0.5 mg IVP Q4H PRN PRN Reason: pain Last Admin: 10/22/16 21:14 Dose: 0.5 mg Linezolid (Zyvox 600mg/300ml D5w) 600 mg in 300 mls @ 200 mls/hr IVPB Q12H [facility] Last Admin: 10/22/16 19:20 Dose: 200 mls/hr Cefepime HCl 1 gm/ Sodium (Chloride) 100 mls @ 100 mls/hr IVPB Q24H [facility] Last Admin: 10/22/16 14:33 Dose: 100 mls/hr Insulin Aspart (Novolog) 0 unit SC ACHS [facility] PRN Reason: Protocol Last Admin: 10/22/16 22:07 Dose: Not Given Lidocaine (Lidoderm) 1 ea TD DAILY [facility] Last Admin: 10/22/16 09:57 Dose: 1 ea Metoclopramide HCl (Reglan) 10 mg PO ACTID [facility] Last Admin: 10/22/16 18:07 Dose: 10 mg Moxifloxacin HCl (Avelox) 400 mg PO Q24H [facility] Last Admin: 10/22/16 18:06 Dose: 400 mg Nifedipine (Procardia Xl) 90 mg PO DAILY [facility] Last Admin: 10/22/16 09:56 Dose: 90 mg Pantoprazole Sodium (Protonix Ec Tab) 40 mg PO DAILY [facility] Last Admin: 10/22/16 09:56 Dose: 40 mg Rosuvastatin Calcium (Crestor) 2.5 mg PO HS [facility] Last Admin: 10/22/16 21:14 Dose: 2.5 mg Timolol Maleate (Timoptic 0.25% Ophth Soln) 1 drop OD BID [facility] Last Admin: 10/22/16 18:07 Dose: 1 drop - Labs Labs: 10/20/16 06:28 10/20/16 06:28 - Constitutional Appears: No Acute Distress, Chronically Ill - Head Exam Head Exam: ATRAUMATIC, NORMAL INSPECTION, NORMOCEPHALIC - Respiratory Exam Respiratory Exam: Decreased Breath Sounds, Rales, Rhonchi - Cardiovascular Exam Cardiovascular Exam: REGULAR RHYTHM, +S1, +S2. absent: Murmur - Rectal Exam Rectal Exam: NORMAL INSPECTION - Back Exam Back Exam: muscle spasm, paraspinal tenderness - Neurological Exam Neurological Exam: Alert, Awake, CN II-XII Intact, Normal Gait, Oriented x3 - Psychiatric Exam Psychiatric exam: Anxious Assessment and Plan (1) Abdominal pain Status: Inactive (2) ESRD (end stage renal disease) on dialysis Status: Chronic (3) Acute abdominal pain syndrome Status: Chronic (4) Dyspnea Status: Resolved (5) Back pain Status: Chronic
[2016-10-23] MEDS: DiphenhydrAMINE 50 mg/ml Inj IVP PRN ×3 (01:26→18:04)
[2016-10-23] MEDS: HYDROmorphone 1 mg/ml ISec IVP PRN ×6 (01:27→22:26)
[2016-10-23] MEDS: Linezolid 600 mg in D5W 300 ml 600 MG/300 ML BAG IVPB SCH ×2 (06:00→18:22)
[2016-10-23 07:33] LABS: POTASSIUM 6.1 mmol/L (3.6-5.2)
[2016-10-23 07:37] LABS: CALCIUM 9.3 mg/dl (8.6-10.4); PHOSPHOROUS 2.6 mg/dL (2.5-4.5)
[2016-10-23 07:43] LABS: HEMATOCRIT 27.2 % (34.0-47.0); MEAN CORPUSCULAR HEMOGLOBIN 31.5 pg (27.0-31.0); MEAN CORPUSCULAR HGB CONC 32.3 g/dL (33.0-37.0); MEAN PLATELET VOLUME 8.3 fL (7.2-11.7); RED CELL DISTRIBUTION WIDTH 21.4 % (11.5-14.5)
[2016-10-23 07:45] LABS: MEAN CELL VOLUME 97.6 fL (81.0-99.0)
[2016-10-23] MEDS: (Novolog) Insulin Aspart, Recombinant 100 u/ml 10 ml vial SC SCH ×4 (07:50→22:23)
[2016-10-23] MEDS: Pantoprazole 40 mg EC Tab PO SCH (09:06)
[2016-10-23] MEDS: Lidocaine 5% Patch TD SCH (09:06)
[2016-10-23] MEDS: NIFEdipine 90 mg ER Tab PO SCH (09:20)
[2016-10-23] MEDS: Epoetin Alfa 10,000 unit/ml Dialysis IV SCH (09:58)
--- NOTE | 2016-10-23 11:12 | CP.PCM.PN ---
Subjective - Date & Time of Evaluation Date of Evaluation: 10/23/16 Time of Evaluation: 11:00 - Subjective Subjective: Seen on dialysis Sedated . No respiratory distress Objective - Vital Signs/Intake and Output Vital Signs (last 24 hours): Temp Pulse Resp BP Pulse Ox 98.4 F 84 20 148/63 99 10/23/16 09:30 10/23/16 09:30 10/23/16 09:30 10/23/16 10:30 10/23/16 09:30 Intake and Output: 10/23/16 10/23/16 06:59 18:59 Intake Total 360 Balance 360 - Medications Medications: Current Medications Calcium Acetate (Phoslo) 667 mg PO TIDCC [facility] Last Admin: 10/23/16 07:53 Dose: 667 mg Carvedilol (Coreg) 25 mg PO BID [facility] Last Admin: 10/23/16 09:20 Dose: Not Given Clonidine HCl (Catapres-Tts3 0.3 Mg/24 Hr) 1 patch TD Q7D@1000 [facility] Last Admin: 10/23/16 09:20 Dose: Not Given Diphenhydramine HCl (Benadryl) 25 mg IVP Q6 PRN PRN Reason: Itching / Pruritus Last Admin: 10/23/16 07:53 Dose: 25 mg Epoetin Cornelius (Procrit) 10,000 unit IV MWF [facility] Last Admin: 10/23/16 09:58 Dose: 10,000 unit Gabapentin (Neurontin) 100 mg PO TID [facility] Last Admin: 10/23/16 09:06 Dose: 100 mg Heparin Sodium (Porcine) (Heparin) 5,000 units SC Q8 [facility] Last Admin: 10/23/16 05:38 Dose: Not Given Hydralazine HCl (Apresoline) 100 mg PO Q8 [facility] Last Admin: 10/23/16 05:37 Dose: 100 mg Hydromorphone HCl (Dilaudid) 0.5 mg IVP Q4H PRN PRN Reason: pain Last Admin: 10/23/16 09:55 Dose: 0.5 mg Linezolid (Zyvox 600mg/300ml D5w) 600 mg in 300 mls @ 200 mls/hr IVPB Q12H [facility] Last Admin: 10/23/16 06:00 Dose: 200 mls/hr Cefepime HCl 1 gm/ Sodium (Chloride) 100 mls @ 100 mls/hr IVPB Q24H [facility] Last Admin: 10/22/16 14:33 Dose: 100 mls/hr Insulin Aspart (Novolog) 0 unit SC ACHS [facility] PRN Reason: Protocol Last Admin: 10/23/16 07:50 Dose: Not Given Lidocaine (Lidoderm) 1 ea TD DAILY [facility] Last Admin: 10/23/16 09:06 Dose: 1 ea Metoclopramide HCl (Reglan) 10 mg PO ACTID [facility] Last Admin: 10/23/16 06:39 Dose: 10 mg Moxifloxacin HCl (Avelox) 400 mg PO Q24H [facility] Last Admin: 10/22/16 18:06 Dose: 400 mg Nifedipine (Procardia Xl) 90 mg PO DAILY [facility] Last Admin: 10/23/16 09:20 Dose: Not Given Pantoprazole Sodium (Protonix Ec Tab) 40 mg PO DAILY [facility] Last Admin: 10/23/16 09:06 Dose: 40 mg Rosuvastatin Calcium (Crestor) 2.5 mg PO HS [facility] Last Admin: 10/22/16 21:14 Dose: 2.5 mg Timolol Maleate (Timoptic 0.25% Ophth Soln) 1 drop OD BID [facility] Last Admin: 10/22/16 18:07 Dose: 1 drop - Labs Labs: 10/23/16 06:54 10/23/16 06:54 - Respiratory Exam Respiratory Exam: NORMAL BREATHING PATTERN Additional comments: Lungs clear - Cardiovascular Exam Cardiovascular Exam: REGULAR RHYTHM - Extremities Exam Additional comments: No edema Assessment and Plan - Assessment and Plan (Free Text) Assessment: ESRD Hyperkalemia HTN IDDM Plan: Continue HD per schedule Compliance with renal diet
[2016-10-23] MEDS: Timolol 0.25% Ophth SOLN OD SCH ×2 (13:54→17:44)
[2016-10-23] MEDS: Cefepime 1 GM in Sodium Chloride 0.9% 100 ML IVPB SCH (14:00)
[2016-10-23] MEDS: Rosuvastatin Calcium 2.5 mg Tab PO SCH (22:21)
--- NOTE | 2016-10-23 23:22 | CP.PCM.PN ---
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 for diabetic foot and waiting for acceptance at [facility] for [facility] Objective - Vital Signs/Intake and Output Vital Signs (last 24 hours): Temp Pulse Resp BP Pulse Ox 98.3 F 92 H 18 140/70 100 10/23/16 15:23 10/23/16 15:23 10/23/16 15:23 10/23/16 17:41 10/23/16 15:23 Intake and Output: 10/23/16 10/24/16 18:59 06:59 Intake Total 360 Balance 360 - Medications Medications: Current Medications Calcium Acetate (Phoslo) 667 mg PO TIDCC [facility] Last Admin: 10/23/16 16:15 Dose: 667 mg Carvedilol (Coreg) 25 mg PO BID [facility] Last Admin: 10/23/16 17:41 Dose: 25 mg Clonidine HCl (Catapres-Tts3 0.3 Mg/24 Hr) 1 patch TD Q7D@1000 [facility] Last Admin: 10/23/16 09:20 Dose: Not Given Diphenhydramine HCl (Benadryl) 25 mg IVP Q6 PRN PRN Reason: Itching / Pruritus Last Admin: 10/23/16 18:04 Dose: 25 mg Epoetin Cornelius (Procrit) 10,000 unit IV MWF [facility] Last Admin: 10/23/16 09:58 Dose: 10,000 unit Gabapentin (Neurontin) 100 mg PO TID [facility] Last Admin: 10/23/16 17:41 Dose: 100 mg Heparin Sodium (Porcine) (Heparin) 5,000 units SC Q8 [facility] Last Admin: 10/23/16 22:21 Dose: 5,000 units Hydralazine HCl (Apresoline) 100 mg PO Q8 [facility] Last Admin: 10/23/16 22:20 Dose: 100 mg Hydromorphone HCl (Dilaudid) 0.5 mg IVP Q4H PRN PRN Reason: pain Last Admin: 10/23/16 22:26 Dose: 0.5 mg Linezolid (Zyvox 600mg/300ml D5w) 600 mg in 300 mls @ 200 mls/hr IVPB Q12H [facility] Last Admin: 10/23/16 18:22 Dose: 200 mls/hr Cefepime HCl 1 gm/ Sodium (Chloride) 100 mls @ 100 mls/hr IVPB Q24H [facility] Last Admin: 10/23/16 14:00 Dose: 100 mls/hr Insulin Aspart (Novolog) 0 unit SC ACHS [facility] PRN Reason: Protocol Last Admin: 10/23/16 22:23 Dose: Not Given Lidocaine (Lidoderm) 1 ea TD DAILY [facility] Last Admin: 10/23/16 09:06 Dose: 1 ea Metoclopramide HCl (Reglan) 10 mg PO ACTID [facility] Last Admin: 10/23/16 16:15 Dose: 10 mg Moxifloxacin HCl (Avelox) 400 mg PO Q24H [facility] Last Admin: 10/23/16 17:45 Dose: 400 mg Nifedipine (Procardia Xl) 90 mg PO DAILY [facility] Last Admin: 10/23/16 09:20 Dose: Not Given Pantoprazole Sodium (Protonix Ec Tab) 40 mg PO DAILY [facility] Last Admin: 10/23/16 09:06 Dose: 40 mg Rosuvastatin Calcium (Crestor) 2.5 mg PO HS [facility] Last Admin: 10/23/16 22:21 Dose: 2.5 mg Timolol Maleate (Timoptic 0.25% Oph Soln) 1 drop OD BID [facility] Last Admin: 10/23/16 17:44 Dose: 1 drop - Labs Labs: 10/23/16 06:54 10/23/16 06:54 - Constitutional Appears: No Acute Distress, Chronically Ill - Head Exam Head Exam: ATRAUMATIC, NORMAL INSPECTION, NORMOCEPHALIC - Eye Exam Eye Exam: EOMI, Normal appearance, PERRL Pupil Exam: NORMAL ACCOMODATION, PERRL - Respiratory Exam Respiratory Exam: Clear to Ausculation Bilateral, NORMAL BREATHING PATTERN - Cardiovascular Exam Cardiovascular Exam: REGULAR RHYTHM, +S1, +S2. absent: Murmur - GI/Abdominal Exam GI & Abdominal Exam: Tenderness Additional comments: epigastric Assessment and Plan (1) Abdominal pain Status: Inactive (2) ESRD (end stage renal disease) on dialysis Status: Chronic (3) Acute abdominal pain syndrome Status: Chronic (4) Dyspnea Status: Resolved (5) Back pain Status: Chronic
[2016-10-24 01:55] VITALS: RESP 20
[2016-10-24] MEDS: DiphenhydrAMINE 50 mg/ml Inj IVP PRN ×2 (04:33→13:19)
[2016-10-24] MEDS: HYDROmorphone 1 mg/ml ISec IVP PRN (04:33)
[2016-10-24] MEDS: Linezolid 600 mg in D5W 300 ml 600 MG/300 ML BAG IVPB SCH (06:35)
[2016-10-24] MEDS: (Novolog) Insulin Aspart, Recombinant 100 u/ml 10 ml vial SC SCH ×2 (07:50→11:26)
[2016-10-24 08:36] VITALS: PULSE 84
[2016-10-24] MEDS: HYDROmorphone 0.5 mg/0.5 ml ISec IVP PRN ×2 (08:56→13:20)
[2016-10-24] MEDS: Timolol 0.25% Ophth SOLN OD SCH (09:35)
[2016-10-24] MEDS: Pantoprazole 40 mg EC Tab PO SCH (09:35)
[2016-10-24] MEDS: NIFEdipine 90 mg ER Tab PO SCH (09:35)
[2016-10-24] MEDS: Lidocaine 5% Patch TD SCH (09:35)
--- NOTE | 2016-10-24 12:05 | CP.PCM.PN ---
Subjective - Date & Time of Evaluation Date of Evaluation: 10/24/16 Time of Evaluation: 11:50 - Subjective Subjective: No change in Pts condition Continues to c/o pain Objective - Vital Signs/Intake and Output Vital Signs (last 24 hours): Temp Pulse Resp BP Pulse Ox 98.4 F 84 20 161/94 H 100 10/24/16 08:35 10/24/16 08:35 10/24/16 08:35 10/24/16 09:35 10/24/16 08:35 Intake and Output: 10/24/16 10/24/16 06:59 18:59 Intake Total 930 Balance 930 - Medications Medications: Current Medications Calcium Acetate (Phoslo) 667 mg PO TIDCC [facility] Last Admin: 10/24/16 07:57 Dose: 667 mg Carvedilol (Coreg) 25 mg PO BID [facility] Last Admin: 10/24/16 09:35 Dose: 25 mg Clonidine HCl (Catapres-Tts3 0.3 Mg/24 Hr) 1 patch TD Q7D@1000 [facility] Last Admin: 10/23/16 09:20 Dose: Not Given Diphenhydramine HCl (Benadryl) 25 mg IVP Q6 PRN PRN Reason: Itching / Pruritus Last Admin: 10/24/16 04:33 Dose: 25 mg Epoetin Cornelius (Procrit) 10,000 unit IV MWF [facility] Last Admin: 10/23/16 09:58 Dose: 10,000 unit Gabapentin (Neurontin) 100 mg PO TID [facility] Last Admin: 10/24/16 09:35 Dose: 100 mg Heparin Sodium (Porcine) (Heparin) 5,000 units SC Q8 [facility] Last Admin: 10/24/16 06:35 Dose: 5,000 units Hydralazine HCl (Apresoline) 100 mg PO Q8 [facility] Last Admin: 10/24/16 06:35 Dose: 100 mg Hydromorphone HCl (Dilaudid) 0.5 mg IVP Q4H PRN PRN Reason: pain Last Admin: 10/24/16 08:56 Dose: 0.5 mg Linezolid (Zyvox 600mg/300ml D5w) 600 mg in 300 mls @ 200 mls/hr IVPB Q12H [facility] Last Admin: 10/24/16 06:35 Dose: 200 mls/hr Cefepime HCl 1 gm/ Sodium (Chloride) 100 mls @ 100 mls/hr IVPB Q24H [facility] Last Admin: 10/23/16 14:00 Dose: 100 mls/hr Insulin Aspart (Novolog) 0 unit SC ACHS [facility] PRN Reason: Protocol Last Admin: 10/24/16 11:26 Dose: Not Given Lidocaine (Lidoderm) 1 ea TD DAILY [facility] Last Admin: 10/24/16 09:35 Dose: 1 ea Metoclopramide HCl (Reglan) 10 mg PO ACTID [facility] Last Admin: 10/24/16 06:35 Dose: 10 mg Moxifloxacin HCl (Avelox) 400 mg PO Q24H [facility] Last Admin: 10/23/16 17:45 Dose: 400 mg Nifedipine (Procardia Xl) 90 mg PO DAILY [facility] Last Admin: 10/24/16 09:35 Dose: 90 mg Pantoprazole Sodium (Protonix Ec Tab) 40 mg PO DAILY [facility] Last Admin: 10/24/16 09:35 Dose: 40 mg Rosuvastatin Calcium (Crestor) 2.5 mg PO HS [facility] Last Admin: 10/23/16 22:21 Dose: 2.5 mg Timolol Maleate (Timoptic 0.25% Ophth Soln) 1 drop OD BID [facility] Last Admin: 10/24/16 09:35 Dose: 1 drop - Labs Labs: 10/23/16 06:54 10/23/16 06:54 - Respiratory Exam Additional comments: Lungs clear - Cardiovascular Exam Cardiovascular Exam: REGULAR RHYTHM - Extremities Exam Additional comments: No edema. Rt foot is dressed Assessment and Plan - Assessment and Plan (Free Text) Assessment: ESRD HTN Back pain Abdominal pain IDDM Plan: Stable on dialysis. Cont HD per schedule
[2016-10-24] MEDS: Cefepime 1 GM in Sodium Chloride 0.9% 100 ML IVPB SCH (13:18)
[2016-10-24 16:11] VITALS: BP 109/58; TEMP 97.3; O2SAT 98
--- NOTE | 2016-10-25 13:15 | CP.PCM.DIS ---
Provider - Provider Date of Admission: 10/16/16 03:32 Attending physician: Sal Gamez MD Time Spent in preparation of Discharge (in minutes): 35 Diagnosis - Discharge Diagnosis (1) Abdominal pain Status: Inactive (2) ESRD (end stage renal disease) on dialysis Status: Chronic (3) Acute abdominal pain syndrome Status: Chronic (4) Dyspnea Status: Resolved (5) Back pain Status: Chronic Hospital Course - Lab Results Lab Results: Most Recent Lab Values WBC 11.0 K/uL (4.8-10.8) H 10/23/16 06:54 RBC 2.79 Mil/uL (3.80-5.20) L 10/23/16 06:54 Hgb 8.8 g/dL (11.0-16.0) L 10/23/16 06:54 Hct 27.2 % (34.0-47.0) L 10/23/16 06:54 MCV 97.6 fL (81.0-99.0) D 10/23/16 06:54 MCH 31.5 pg (27.0-31.0) H 10/23/16 06:54 MCHC 32.3 g/dL (33.0-37.0) L 10/23/16 06:54 RDW 21.4 % (11.5-14.5) H 10/23/16 06:54 Plt Count 138 K/uL (130-400) 10/23/16 06:54 MPV 8.3 fL (7.2-11.7) 10/23/16 06:54 Neut % (Auto) 69.3 % (50.0-75.0) 10/18/16 09:23 Lymph % (Auto) 12.2 % (20.0-40.0) L 10/18/16 09:23 [place] % (Auto) 7.7 % (0.0-10.0) 10/18/16 09:23 Eos % (Auto) 9.8 % (0.0-4.0) H 10/18/16 09:23 Baso % (Auto) 1.0 % (0.0-2.0) 10/18/16 09:23 Neut # 6.5 K/uL (1.8-7.0) 10/18/16 09:23 Lymph # 1.1 K/uL (1.0-4.3) 10/18/16 09:23 [place] # 0.7 K/uL (0.0-0.8) 10/18/16 09:23 Eos # 0.9 K/uL (0.0-0.7) H 10/18/16 09:23 Baso # 0.1 K/uL (0.0-0.2) 10/18/16 09:23 Sodium 137 mmol/L (132-148) 10/23/16 06:54 Potassium 6.1 mmol/L (3.6-5.2) H 10/23/16 06:54 Chloride 96 mmol/L (98-107) L 10/23/16 06:54 Carbon Dioxide 29 mmol/L (22-30) 10/23/16 06:54 Anion Gap 18 (10-20) 10/23/16 06:54 BUN 68 mg/dL (7-17) H 10/23/16 06:54 Creatinine 6.9 MG/DL (0.7-1.2) H 10/23/16 06:54 Est GFR ( Amer) 8 10/23/16 06:54 Est GFR (Non-Af Amer) 7 10/23/16 06:54 POC Glucose (mg/dL) 89 mg/dL (65-110) 10/24/16 11:07 Random Glucose 108 mg/dL (65-105) H 10/23/16 06:54 Calcium 9.3 mg/dl (8.6-10.4) 10/23/16 06:54 Phosphorus 2.6 mg/dL (2.5-4.5) 10/23/16 06:54 Iron 70 ug/dL (37-170) 10/18/16 09:23 TIBC 257 ug/dL (250-450) 10/18/16 09:23 % Saturation 27 (20-55) 10/18/16 09:23 Ferritin 892.0 ng/mL 10/18/16 09:23 Total Bilirubin 0.6 mg/dL (0.2-1.3) 10/15/16 22:54 AST 34 U/L (14-36) 10/15/16 22:54 ALT 39 U/L (9-52) 10/15/16 22:54 Alkaline Phosphatase 142 U/L (38-126) H D 10/15/16 22:54 Total Creatine Kinase 23 U/L (30-135) L 10/19/16 17:42 CK-MB (Mass) 0.72 ng/mL (0.0-3.38) 10/19/16 17:42 Troponin I, Quant < 0.0120 ng/mL (0.00-0.120) 10/19/16 17:42 Total Protein 7.4 g/dL (6.3-8.3) 10/15/16 22:54 Albumin 3.9 g/dL (3.5-5.0) 10/15/16 22:54 Globulin 3.5 gm/dL (2.2-3.9) 10/15/16 22:54 Albumin/Globulin Ratio 1.1 (1.0-2.1) 10/15/16 22:54 Lipase 46 U/L (23-300) 10/15/16 22:54 Beta HCG, Quant < 2.39 mIU/ML 10/15/16 22:54 Blood Type O POSITIVE 10/18/16 10:04 Antibody Screen Negative 10/18/16 10:04 - Hospital Course Hospital Course: Pt seen & examined at bedside, is clear for discharge home, NAD, continues to comlain of chronic pain that is generalized, follow up outpatient Discharge Exam - Head Exam Head Exam: ATRAUMATIC, NORMAL INSPECTION, NORMOCEPHALIC - Eye Exam Eye Exam: Normal appearance - ENT Exam ENT Exam: Mucous Membranes Moist - Respiratory Exam Respiratory Exam: Clear to PA & Lateral, NORMAL BREATHING PATTERN - Cardiovascular Exam Cardiovascular Exam: REGULAR RHYTHM - GI/Abdominal Exam GI & Abdominal Exam: Normal Bowel Sounds Discharge Plan - Discharge Medications Prescriptions: DiphenhydrAMINE [Benadryl] 25 mg PO Q8 PRN #30 cap PRN Reason: Itching / Pruritus HYDROmorphone [Dilaudid 2 mg Tab] 2 mg PO Q6 PRN #20 tab PRN Reason: Pain, Severe (8-10) Cefepime [Maxipime] 1 gm IVPB Q24H 28 Days - Follow Up Plan Condition: STABLE Disposition: REHAB FACILITY/REHAB UNIT Instructions: Dialysis Diet (DC), Pericardial Effusion (DC), End Stage Kidney Disease (DC) Additional Instructions: Please admit patient under Dr. Gamez service - call Dr. Gamez upon patient arrival to the facility Continue antibiotics x 4 more weeks Continue HD as scheduled PICC lINE MAY USE - CARE PER FACILITY PROTOCOL CMP sunday and q weekly wound care - APPLY GENEROUS AMOUNT OF MEDIHONEY TO LEFT HEEL UNSTAGABLE PRESSURE ULCER, THEN COVER WITH THICK DRY BULKY DRESSING TO BE DONE DAILY. MUST KEEP LEFT HEEL ELEVATED TO OPTIMIZE OFFLOADING TO INCREASE THE HEALING PROCESS. Referrals: Sal Gamez MD [Staff Provider] -
== END 2016-10-24 17:46 | DRG 91 ==
LOC: C.ER 22:21 → C.6T 10-16 03:32
PROVIDERS: ADMIT Internal Medicine; ATTEND Internal Medicine
PROC: 5A1D60Z (ICD-10-PCS; principal; 2016-10-16)
PROC: 02PYX3Z Removal of Infusion Device from Great Vessel, External Approach (ICD-10-PCS; 2016-10-19)
PROC: 02HV33Z Insertion of Infusion Device into Superior Vena Cava, Percutaneous Approach (ICD-10-PCS; 2016-10-19)
DX: G89.4 Chronic pain syndrome (principal); N18.6 End stage renal disease; I12.0 Hypertensive chronic kidney disease with stage 5 chronic kidney disease or end stage renal disease; I31.3 Pericardial effusion (noninflammatory); E11.22 Type 2 diabetes mellitus with diabetic chronic kidney disease; L97.429 Non-pressure chronic ulcer of left heel and midfoot with unspecified severity; M86.9 Osteomyelitis, unspecified; E11.621 Type 2 diabetes mellitus with foot ulcer; K31.84 Gastroparesis; Z99.2 Dependence on renal dialysis; E78.00 Pure hypercholesterolemia, unspecified; Z90.49 Acquired absence of other specified parts of digestive tract; Z87.891 Personal history of nicotine dependence; E11.43 Type 2 diabetes mellitus with diabetic autonomic (poly)neuropathy; Z89.411 Acquired absence of right great toe; D63.1 Anemia in chronic kidney disease; Z79.4 Long term (current) use of insulin; E11.69 Type 2 diabetes mellitus with other specified complication; E11.610 Type 2 diabetes mellitus with diabetic neuropathic arthropathy; R10.9 Unspecified abdominal pain; M51.37 Other intervertebral disc degeneration, lumbosacral region; E87.70 Fluid overload, unspecified; E87.5 Hyperkalemia

== ENCOUNTER 2016-10-26 20:56 | Inpatient (IN) | payer MEDICARE, OTHER ==
[2016-10-26 21:13] VITALS: BMI 27.1
[2016-10-26] MEDS ORDERED: HYDROmorphone 1 mg/ml ISec IVP STA (21:49)
--- NOTE | 2016-10-26 21:49 | C.PDOC ---
History Of Present Illness 41 y/o female presents to ED with c/o swollen left breast for 2-3 days. Patient also reports some mild SOB. Denies fever, chills, nausea, or vomiting. Patient notes she is a MWF dialysis patient. Time Seen by Provider: 10/26/16 21:48 Chief Complaint (Nursing): Abnormal Skin Integrity History Per: Patient History/Exam Limitations: no limitations Onset/Duration Of Symptoms: Days Current Symptoms Are (Timing): Still Present Quality Of Symptoms: Painful, Swollen Severity: Moderate Pain Scale Rating Of: 5 Recent travel outside of the [place]: No Past Medical History Reviewed: Historical Data, Nursing Documentation, Vital Signs Vital Signs: Last Vital Signs Temp 98.2 F 10/27/16 00:23 Pulse 79 10/27/16 00:23 Resp 20 10/27/16 00:23 BP 157/83 H 10/27/16 00:23 Pulse Ox 98 10/27/16 01:08 - Medical History PMH: Anemia, Depression, Diabetes, Gastritis (diabetic gastroparesis), HTN, Hypercholesterolemia, Pneumonia, End Stage Renal Disease (Dialysis M-W-F), Chronic Kidney Disease Surgical History: Cholecystectomy - [facility] Procedures BONE BIOPSY NEC (04/07/13) CATARAC PHACOEMULS/ASPIR (09/23/14) CONTRAST ARTERIOGRAM NEC (07/17/13) CONTRAST ARTERIOGRAM-LEG (04/07/13) DIALYSIS ARTERIOVENOSTOM (04/07/13) ESOPHAGOGASTRODUODENOSCOPY [EGD] W/CLOSED BIOPSY (09/19/13) EXCIS DEBRIDE OF WOUND, INFECT, OR BURN (07/17/13) EXCISION OF STOMACH, ENDO, DIAGN (09/13/16) EXCISION OF STOMACH, PYLORUS, ENDO, DIAGN (03/14/15) EXTRACTION OF LEFT FOOT SKIN, EXTERNAL APPROACH (10/07/16) EXTRACTION OF LEFT LOWER LEG SKIN, EXTERNAL APPROACH (06/16/16) HEMODIALYSIS (01/01/15) INCIS W REM OF FORIEGN BODY OR DEV FROM SKIN & SUBCUT TISSUE (05/27/13) INDIVID PSYCHOTHERAP NEC (04/20/13) INJECT/INFUSE NEC (11/09/13) INSERT LENS AT CATAR EXT (09/23/14) INSERTION OF INFUSION DEV INTO SUP VENA CAVA, PERC APPROACH (10/16/16) INSPECTION OF UPPER INTESTINAL TRACT, ENDO (03/10/16) OCCUPATIONAL THERAPY (04/30/13) OTHER GROUP THERAPY (04/20/13) OTHER SKIN & SUBQ I D (07/17/13) PERFORMANCE OF URINARY FILTRATION, MULTIPLE (10/16/16) PERFORMANCE OF URINARY FILTRATION, SINGLE (10/04/16) PHYSICAL THERAPY NEC (04/30/13) REMOVAL OF INFUSION DEV FROM GREAT VESSEL, INSTRUCTOR BUS TROLLEY AND TAXI APPROACH (10/16/16) TRANSFUSE NONAUT RED BLOOD CELLS IN PERIPH VEIN, PERC (06/10/15) ULTRASONOGRAPHY OF RIGHT AND LEFT HEART, TRANSESOPHAGEAL (06/19/15) ULTRASONOGRAPHY OF SUPERIOR VENA CAVA, GUIDANCE (10/07/16) Family History: States: Diabetes - Social History Hx Tobacco Use: No Hx Alcohol Use: No Hx Substance Use: No - Immunization History Hx Tetanus Toxoid Vaccination: Yes Hx Influenza Vaccination: Yes Hx Pneumococcal Vaccination: Yes Review Of Systems Constitutional: Negative for: Fever, Chills Eyes: Negative for: Redness Cardiovascular: Negative for: Chest Pain Respiratory: Positive for: Shortness of Breath Gastrointestinal: Negative for: Nausea, Vomiting Genitourinary: Negative for: Pelvic Pain Musculoskeletal: Negative for: Back Pain Skin: Positive for: Other (left breast swelling) Neurological: Negative for: Dizziness Psych: Negative for: Anxiety Physical Exam - Physical Exam Appears: Non-toxic, Other (moderate distress, 5/10 ) Skin: Warm, Dry Head: Atraumatic, Normacephalic Oral Mucosa: Moist Neck: Supple Chest: Symmetrical, Other (left breast: +tenderness, jean-claude-areolar area of induration) Cardiovascular: Rhythm Regular Respiratory: No Accessory Muscle Use, No Rales, Rhonchi (scattered), No Wheezing Gastrointestinal/Abdominal: Soft, Distention, No Guarding, No Rebound, Other ( typanic to percussion, well-healed midline surgical scars) Back: Normal Inspection Extremity: Normal ROM, Pedal Edema (trace pedal edema over dorsum of bilateral feet), Capillary Refill (< 2 sec. ), Other (PICC Line right arm, left arm graft with good thrill and bruit) Extremity: Bilateral: Normal Color And Temperature, Normal ROM Neurological/Psych: Oriented x3, Normal Speech, Normal Cognition Gait: Steady ED Course And Treatment - Laboratory Results Result Diagrams: 10/26/16 23:07 10/26/16 23:07 ECG: Interpreted By Me, Viewed By Me O2 Sat by Pulse Oximetry: 98 (RA) Pulse Ox Interpretation: Normal - Radiology CXR: Interpreted by Me, Viewed By Me - CT Scan/US CT Chest Other Rad Studies (CT/US): Read By Radiologist, Radiology Report Reviewed CT/US Interpretation: IMPRESSION: - Marked skin thickening and soft tissue edema involving the left breast diffusely. In a patient. of this age, this is most likely secondary to an inflammatory process such as mastoiditis. Inflammatory carcinoma is considered unlikely in a young patient, however, recommend. clinical correlation. There is also soft tissue edema involving the left chest and abdominal. wall, which could be due to cellulitis. No soft tissue gas or focal abscess identified. - Upper abdominal findings which could be secondary to duodenitis. Please see above for a. full description. Small amount of abdominal free fluid. - Lung findings suspicious for mild bilateral groundglass airspace disease. Groundglass. pneumonia or early pulmonary edema could have this appearance. - Otherwise, no evidence of significant acute process on this unenhanced exam. - Right PICC line terminates in the right brachiocephalic vein. It does not enter the superior vena. cava. - Left axillary lymphadenopathy. This could be reactive in etiology. Followup is recommended. - Scattered, mostly tiny pulmonary nodules. Again, followup is recommended. Progress Note: VBG, CT chest, bloodwork ordered. Treated with heparin, dilaudid. Disposition Discussed With : Sal Gamez Comment: accepted the pt on his serevice and tookover the care at 12:15AM Counseled Patient/Family Regarding: Studies Performed, Diagnosis - Disposition Disposition: HOSPITALIZED Disposition Time: 21:49 Condition: FAIR - Clinical Impression Clinical Impression: DM2 (diabetes mellitus, type 2), CKD (chronic kidney disease) requiring chronic dialysis, Mastitis of left breast unrelated to or - Scribe Statement The provider has reviewed the documentation as recorded by the Baron Haque Provider Attestation: All medical record entries made by the Baron were at my direction and personally dictated by me. I have reviewed the chart and agree that the record accurately reflects my personal performance of the history, physical exam, medical decision making, and the department course for this patient. I have also personally directed, reviewed, and agree with the discharge instructions and disposition. Decision To Admit - Pt Status Changed To: Hospital Disposition Of: Inpatient - Admit Certification Admit to Inpatient:: After my assessment, the patient will require hospitalization for at least two midnights. This is because of the severity of symptoms shown, intensity of services needed, and/or the medical risk in this patient being treated as an outpatient. - InPatient: Physician Admission Certification: I certify that this patient requires 2 or more midnights of care for the following reason:: After my assessment, the patient will require hospitalization for at least two midnights. This is because of the severity of symptoms shown, intensity of services needed, and/or the medical risk in this patient being treated as an outpatient. - . Bed Request Type: Regular Admitting Physician: Sal Gamez Patient Diagnosis: DM2 (diabetes mellitus, type 2), CKD (chronic kidney disease) requiring chronic dialysis, Mastitis of left breast unrelated to or
[2016-10-26] MEDS ORDERED: HYDROmorphone 1 mg/ml ISec ONE (21:58)
[2016-10-26 23:10] LABS: BASO # 0.1 K/uL (0.0-0.2); BASO % 1.3 % (0.0-2.0); EOS % 9.9 % (0.0-4.0); HEMOGLOBIN 8.6 g/dL (11.0-16.0); LYMPH # 1.3 K/uL (1.0-4.3); LYMPH % 11.9 % (20.0-40.0); MEAN CELL VOLUME 98.6 fL (81.0-99.0); MEAN CORPUSCULAR HEMOGLOBIN 31.8 pg (27.0-31.0); MEAN CORPUSCULAR HGB CONC 32.2 g/dL (33.0-37.0); MEAN PLATELET VOLUME 7.9 fL (7.2-11.7); NEUT # 7.2 K/uL (1.8-7.0); NEUT % 67.9 % (50.0-75.0); RBC 2.71 Mil/uL (3.80-5.20); RED CELL DISTRIBUTION WIDTH 22.6 % (11.5-14.5); WHITE BLOOD COUNT 10.6 K/uL (4.8-10.8)
[2016-10-26 23:22] LABS: ALBUMIN 3.9 g/dL (3.5-5.0)
[2016-10-26 23:24] LABS: GFR AFRICAN-AMERICAN 11; GFR NON-AFRICAN AMERICAN 9
[2016-10-26 23:25] LABS: ALB/GLOB RATIO 1.1 (1.0-2.1); ALT/SGPT 141 U/L (9-52); AST/SGOT 80 U/L (14-36); BLOOD UREA NITROGEN 49 mg/dL (7-17); CALCIUM 8.9 mg/dl (8.6-10.4)
[2016-10-26 23:27] LABS: INR 1.1; PROTHROMBIN TIME 12.6 SECONDS (9.7-12.2)
[2016-10-26 23:39] LABS: VENOUS BLOOD GAS BASE EXCESS 5.9 mmol/L (0.0-2.0); VENOUS BLOOD GAS PCO2 30 mmHg (40-60); VENOUS BLOOD GAS PO2 150 mm/Hg (30-55); VENOUS BLOOD PH 7.57 (7.32-7.43)
[2016-10-27] MEDS ORDERED: DiphenhydrAMINE 50 mg/ml Inj IVP STA (00:33)
[2016-10-27] MEDS ORDERED: HYDROmorphone 1 mg/ml ISec IVP STA (00:33)
[2016-10-27] MEDS ORDERED: DiphenhydrAMINE 50 mg/ml Inj ONE (00:36)
--- NOTE | 2016-10-27 01:00 | CT ---
EXAM: CT Chest Without Intravenous Contrast CLINICAL HISTORY: 41 years old, female; Signs and symptoms; Mass, lump, or swelling in the chest; Additional info: Attention left breast mass TECHNIQUE: Axial computed tomography images of the chest without intravenous contrast. This CT exam was performed using one or more of the following dose reduction techniques: automated exposure control, adjustment of the mA and/or kV according to patient size, and/or use of iterative reconstruction technique. Coronal and sagittal reformatted images were created and reviewed. EXAM DATE/TIME: 10/26/2016 9:50 PM COMPARISON: None is available. FINDINGS: LUNGS: Heterogeneous attenuation of the lungs bilaterally, suspected to be due to subtle, patchy, multifocal bilateral ground glass airspace disease. Scattered, multiple, mostly tiny pulmonary nodules. The largest of these, located in the left lung apex, image 72 of series 601, measures 4 mm. Patent large airways. PLEURAL SPACE: No pneumothorax or significant pleural effusions seen. HEART: Heart appears mildly enlarged. Coronary artery calcification. BONES/JOINTS: No acute fractures or other acute bony abnormality noted. SOFT TISSUES: Marked skin thickening involving the left breast. Marked, edema and fat infiltration involving the left breast soft tissues. Mild to moderate edema and fat infiltration involving the left chest and abdominal wall soft tissues diffusely. No evidence of soft tissue gas. No evidence of focal soft tissue fluid collection/abscess. VASCULATURE: Atherosclerotic calcification. Exam is nondiagnostic for aortic dissection and pulmonary emboli, secondary to unenhanced technique. LYMPH NODES: Mild left axillary lymphadenopathy. Most of the lymph nodes seen are small in size, however, the number present is abnormal. There also numerous small right axillary lymph nodes visualized. KIDNEYS AND URETERS: Kidneys appear atrophic. STOMACH AND BOWEL: Duodenal bulb appears thick walled. There is a small amount of nearby fluid in the retroperitoneal space. Findings could be due to duodenitis. Small duodenal diverticulum noted.There is no evidence of free air/duodenal perforation. INTRAPERITONEAL SPACE: Small amount of abdominal free fluid. TUBES, LINES AND DEVICES: Right PICC line is in place. This terminates in the right brachiocephalic vein. It does not enter superior vena cava. IMPRESSION: - Marked skin thickening and soft tissue edema involving the left breast diffusely. In a patient of this age, this is most likely secondary to an inflammatory process such as mastoiditis. Inflammatory carcinoma is considered unlikely in a young patient, however, recommend clinical correlation. There is also soft tissue edema involving the left chest and abdominal wall, which could be due to cellulitis. No soft tissue gas or focal abscess identified. - Upper abdominal findings which could be secondary to duodenitis. Please see above for a full description. Small amount of abdominal free fluid. - Lung findings suspicious for mild bilateral groundglass airspace disease. Groundglass pneumonia or early pulmonary edema could have this appearance. - Otherwise, no evidence of significant acute process on this unenhanced exam. - Right PICC line terminates in the right brachiocephalic vein. It does not enter the superior vena cava. - Left axillary lymphadenopathy. This could be reactive in etiology. Followup is recommended. - Scattered, mostly tiny pulmonary nodules. Again, followup is recommended. - See above for remaining findings.
[2016-10-27] MEDS ORDERED: Vancomycin 1 GM 1 GM/250 ML BAG IVPB STA (01:48)
[2016-10-27] MEDS ORDERED: Vancomycin 1 GM 1 GM/250 ML BAG IVPB ONE (01:52)
[2016-10-27] MEDS ORDERED: Clindamycin 600mg/50ml D5W 600 MG/50 ML VIAL IVPB SCH (04:00)
--- NOTE | 2016-10-27 07:58 | CP.PCM.CON ---
<Bronwyn Anthony - Last Filed: 10/27/16 07:53> History of Present Illness - History of Present Illness History of Present Illness: 41yo F w/ extensive PMH including ESRD on HD, HTN, IDDM, recently admitted for OM of the foot and discharged 10/25, who returned to ED yesterday night with complaints of Left breast pain and swelling. Pt states that this started approx 1 week ago while she was still in the hospital for Osteo. She noticed mild swelling and tenderness to the Left breast. After she was discharged she states the pain and swelling became progressively worse so she returned to the hospital. She denies any other complaints and denies any F/C, SOB/Cp, N/V. PMH: ESRD on HD, HTN, IDDM, OM, Anemia PSH: Cholecystectomy, Feeding tube, Left arm AVF, R toe amp Meds as per chart Allergies to Toradol, Morphine, Tramadol CT of the chest was done on admission which showed extensive soft tissue edema and thickening consistent with cellulitis, no focal abscess or fluid collection seen. Review of Systems - Review of Systems All systems: reviewed and no additional remarkable complaints except (as per HPI ) Past Patient History - Infectious Disease Hx of Infectious Diseases: None - Past Medical History & Family History Past Medical History?: Yes - Past Social History Smoking Status: Former Smoker - CARDIAC Hx Hypercholesterolemia: Yes Hx Hypertension: Yes - PULMONARY Hx Pneumonia: Yes - HEENT Hx HEENT Problems: Yes Hx Cataracts: Yes (09/23/14 left) - RENAL Date of Last Dialysis Treatment: 10/25/16 - ENDOCRINE/METABOLIC Hx Diabetes Mellitus Type 2: Yes - HEMATOLOGICAL/ONCOLOGICAL Hx Anemia: Yes - INTEGUMENTARY Hx Dermatological Problems: Yes Other/Comment: right great toe amputation 2009 - MUSCULOSKELETAL/RHEUMATOLOGICAL Hx Falls: Yes - GASTROINTESTINAL Hx Gastritis: Yes (diabetic gastroparesis) - GENITOURINARY/GYNECOLOGICAL Hx Genitourinary Disorders: Yes Other/Comment: renal failure - PSYCHIATRIC Hx Substance Use: No - SURGICAL HISTORY Hx Section: Yes (1999) Hx Cholecystectomy: Yes (2010) - ANESTHESIA Hx Anesthesia: Yes Hx Anesthesia Reactions: No Hx Malignant Hyperthermia: No Has any member of the family had a problem w/ anesthesia?: No Meds Allergies/Adverse Reactions: Allergies Allergy/AdvReac Type Severity Reaction Status Date / Time ketorolac tromethamine Allergy Verified 06/22/17 21:13 [From Toradol] morphine Allergy Verified 10/26/16 21:13 tramadol Allergy RASH Verified 10/26/16 21:13 - Medications Medications: Current Medications Acetaminophen (Tylenol 325mg Tab) 650 mg PO Q4 PRN PRN Reason: Pain, moderate (4-7) Calcium Acetate (Phoslo) 667 mg PO TIDCC [facility] Carvedilol (Coreg) 25 mg PO BID [facility] Clonidine HCl (Catapres-Tts3 0.3 Mg/24 Hr) 1 patch TD Q7D@1000 [facility] Diphenhydramine HCl (Benadryl) 25 mg PO Q8 PRN PRN Reason: Itching / Pruritus Gabapentin (Neurontin) 100 mg PO TID [facility] Heparin Sodium (Porcine) (Heparin) 5,000 units SC Q8 [facility] Last Admin: 10/27/16 06:24 Dose: 5,000 units Hydralazine HCl (Apresoline) 100 mg PO Q8 [facility] Last Admin: 10/27/16 06:20 Dose: 100 mg Hydromorphone HCl (Dilaudid) 2 mg PO Q6 PRN PRN Reason: Pain, severe (8-10) Hydromorphone HCl (Dilaudid) 1 mg IVP Q3H PRN PRN Reason: Pain, moderate (4-7) Ceftriaxone Sodium (Rocephin Iv 1 Gm Duplex) 50 mls @ 100 mls/hr IVPB DAILY [facility] Clindamycin Phosphate (Cleocin) 600 mg in 50 mls @ 102 mls/hr IVPB Q8H [facility] Last Admin: 10/27/16 05:38 Dose: 102 mls/hr Insulin Aspart (Novolog) 0 unit SC ACHS [facility] PRN Reason: Protocol Lidocaine (Lidoderm) 1 ea TD DAILY [facility] Metoclopramide HCl (Reglan) 10 mg PO ACTID [facility] Nifedipine (Procardia Xl) 90 mg PO DAILY [facility] Pantoprazole Sodium (Protonix Ec Tab) 40 mg PO DAILY [facility] Rosuvastatin Calcium (Crestor) 2.5 mg PO HS [facility] Timolol Maleate (Timoptic 0.25% Ophth Soln) 1 drop OD BID [facility] Physical Exam - Constitutional Appears: No Acute Distress - Head Exam Head Exam: ATRAUMATIC, NORMAL INSPECTION, NORMOCEPHALIC - Eye Exam Eye Exam: EOMI, Normal appearance - Respiratory Exam Respiratory Exam: NORMAL BREATHING PATTERN. absent: Respiratory Distress - Cardiovascular Exam Cardiovascular Exam: REGULAR RHYTHM Additional comments: Left breast with approx 6x6 cm area of swelling at approx the 3:00 position just adjacent to the nipple, surrounding mild induration, very tender, no fluctuance - Neurological Exam Neurological exam: Alert, Oriented x3 - Psychiatric Exam Psychiatric exam: Normal Affect, Normal Mood - Skin Skin Exam: Dry, Intact Results - Vital Signs Recent Vital Signs: Last Vital Signs Temp 98.7 F 10/27/16 03:30 Pulse 80 10/27/16 05:41 Resp 20 10/27/16 03:30 BP 150/84 10/27/16 05:41 Pulse Ox 100 10/27/16 03:30 - Labs Result Diagrams: 10/26/16 23:07 10/26/16 23:07 Labs: Laboratory Results - last 24 hr 10/27/16 06:09 POC Glucose (mg/dL) 71 Assessment & Plan - Assessment and Plan (Free Text) Assessment: 41 yo F w/ extensive medical hx, admitted w/ L Breast Cellulitis -U/S of the L breast to further eval for poss. abscess -IV Abx -Pain control -Warm compresses throughout the day -Will follow Dw Dr. José Miguel Anthony PGY2 <Rajinder Valdez - Last Filed: 10/27/16 12:51> Meds - Medications Medications: Current Medications Acetaminophen (Tylenol 325mg Tab) 650 mg PO Q4 PRN PRN Reason: Fever >100.4 F Calcium Acetate (Phoslo) 667 mg PO TIDCC [facility] Last Admin: 10/27/16 09:15 Dose: 667 mg Carvedilol (Coreg) 25 mg PO BID [facility] Clonidine HCl (Catapres-Tts3 0.3 Mg/24 Hr) 1 patch TD Q7D@1000 [facility] Diphenhydramine HCl (Benadryl) 25 mg PO Q8 PRN PRN Reason: Itching / Pruritus Last Admin: 10/27/16 10:49 Dose: 25 mg Epoetin Cornelius (Procrit) 8,000 unit IV MWF [facility] Gabapentin (Neurontin) 100 mg PO TID [facility] Last Admin: 10/27/16 10:49 Dose: 100 mg Heparin Sodium (Porcine) (Heparin) 5,000 units SC Q8 [facility] Last Admin: 10/27/16 06:24 Dose: 5,000 units Hydralazine HCl (Apresoline) 100 mg PO Q8 [facility] Last Admin: 10/27/16 06:20 Dose: 100 mg Hydromorphone HCl (Dilaudid) 2 mg PO Q6 PRN PRN Reason: Pain, severe (8-10) Hydromorphone HCl (Dilaudid) 1 mg IVP Q3H PRN PRN Reason: Pain, moderate (4-7) Last Admin: 10/27/16 09:16 Dose: 1 mg Ceftriaxone Sodium (Rocephin Iv 1 Gm Duplex) 50 mls @ 100 mls/hr IVPB DAILY [facility] Last Admin: 10/27/16 10:48 Dose: 100 mls/hr Clindamycin Phosphate (Cleocin) 600 mg in 50 mls @ 102 mls/hr IVPB Q8H [facility] Last Admin: 10/27/16 05:38 Dose: 102 mls/hr Insulin Aspart (Novolog) 0 unit SC ACHS [facility] PRN Reason: Protocol Last Admin: 10/27/16 08:28 Dose: Not Given Lidocaine (Lidoderm) 1 ea TD DAILY [facility] Last Admin: 10/27/16 10:49 Dose: 1 ea Metoclopramide HCl (Reglan) 10 mg PO ACTID [facility] Last Admin: 10/27/16 09:15 Dose: 10 mg Nifedipine (Procardia Xl) 90 mg PO DAILY [facility] Pantoprazole Sodium (Protonix Ec Tab) 40 mg PO DAILY [facility] Last Admin: 10/27/16 10:49 Dose: 40 mg Rosuvastatin Calcium (Crestor) 2.5 mg PO HS [facility] Timolol Maleate (Timoptic 0.25% Ophth Soln) 1 drop OD BID [facility] Results - Vital Signs Recent Vital Signs: Last Vital Signs Temp 98.4 F 10/27/16 08:00 Pulse 90 10/27/16 09:15 Resp 20 10/27/16 08:00 BP 126/81 10/27/16 09:15 Pulse Ox 99 10/27/16 08:00 - Labs Result Diagrams: 10/26/16 23:07 10/26/16 23:07 Labs: Laboratory Results - last 24 hr 10/27/16 10/27/16 06:09 12:11 POC Glucose (mg/dL) 71 126 H Attending/Attestation - Attestation I have personally seen and examined this patient.: Yes I have fully participated in the care of the patient.: Yes I have reviewed all pertinent clinical information: Yes Notes (Text): 10/27/16 12:50 Pt was seen and examined at bedside on 10/27/16 Agree with above note and assessment Pt with left Breast Cellulitis Awaiting US report C/w IV antibiotics Labs reviewed C.w current mx Plan d.w pt and PMD in detail.
[2016-10-27] MEDS: (Novolog) Insulin Aspart, Recombinant 100 u/ml 10 ml vial SC SCH ×4 (08:28→22:00)
[2016-10-27] MEDS ORDERED: HYDROmorphone 1 mg/ml ISec ONE (09:06)
[2016-10-27] MEDS: HYDROmorphone 1 mg/ml ISec IVP PRN ×3 (09:16→20:41)
[2016-10-27] MEDS ORDERED: cefTRIAXone IV 1 gm in Dextros 50 ML IVPB SCH (10:00)
--- NOTE | 2016-10-27 10:40 | CP.PCM.CON ---
History of Present Illness - History of Present Illness History of Present Illness: 41 y/o female [facility] on HD, MWF, IDDM ,Rt foot cellulitis recently discharged from on . is readmitted for c/o SOB & cellulitis of breast Past Patient History - Infectious Disease Hx of Infectious Diseases: None - Past Medical History & Family History Past Medical History?: Yes - Past Social History Smoking Status: Former Smoker - CARDIAC Hx Hypercholesterolemia: Yes Hx Hypertension: Yes - PULMONARY Hx Pneumonia: Yes - HEENT Hx HEENT Problems: Yes Hx Cataracts: Yes (09/23/14 left) - RENAL Date of Last Dialysis Treatment: 10/25/16 - ENDOCRINE/METABOLIC Hx Diabetes Mellitus Type 2: Yes - HEMATOLOGICAL/ONCOLOGICAL Hx Anemia: Yes - INTEGUMENTARY Hx Dermatological Problems: Yes Other/Comment: right great toe amputation 2009 - MUSCULOSKELETAL/RHEUMATOLOGICAL Hx Falls: Yes - GASTROINTESTINAL Hx Gastritis: Yes (diabetic gastroparesis) - GENITOURINARY/GYNECOLOGICAL Hx Genitourinary Disorders: Yes Other/Comment: renal failure - PSYCHIATRIC Hx Substance Use: No - SURGICAL HISTORY Hx Section: Yes (1999) Hx Cholecystectomy: Yes (2010) - ANESTHESIA Hx Anesthesia: Yes Hx Anesthesia Reactions: No Hx Malignant Hyperthermia: No Has any member of the family had a problem w/ anesthesia?: No Meds Allergies/Adverse Reactions: Allergies Allergy/AdvReac Type Severity Reaction Status Date / Time ketorolac tromethamine Allergy Verified 10/26/16 21:13 [From Toradol] morphine Allergy Verified 10/26/16 21:13 tramadol Allergy RASH Verified 10/26/16 21:13 - Medications Medications: Current Medications Acetaminophen (Tylenol 325mg Tab) 650 mg PO Q4 PRN PRN Reason: Fever >100.4 F Calcium Acetate (Phoslo) 667 mg PO TIDCC [facility] Last Admin: 10/27/16 09:15 Dose: 667 mg Carvedilol (Coreg) 25 mg PO BID [facility] Clonidine HCl (Catapres-Tts3 0.3 Mg/24 Hr) 1 patch TD Q7D@1000 [facility] Diphenhydramine HCl (Benadryl) 25 mg PO Q8 PRN PRN Reason: Itching / Pruritus Gabapentin (Neurontin) 100 mg PO TID [facility] Heparin Sodium (Porcine) (Heparin) 5,000 units SC Q8 [facility] Last Admin: 10/27/16 06:24 Dose: 5,000 units Hydralazine HCl (Apresoline) 100 mg PO Q8 [facility] Last Admin: 10/27/16 06:20 Dose: 100 mg Hydromorphone HCl (Dilaudid) 2 mg PO Q6 PRN PRN Reason: Pain, severe (8-10) Hydromorphone HCl (Dilaudid) 1 mg IVP Q3H PRN PRN Reason: Pain, moderate (4-7) Last Admin: 10/27/16 09:16 Dose: 1 mg Ceftriaxone Sodium (Rocephin Iv 1 Gm Duplex) 50 mls @ 100 mls/hr IVPB DAILY [facility] Clindamycin Phosphate (Cleocin) 600 mg in 50 mls @ 102 mls/hr IVPB Q8H [facility] Last Admin: 10/27/16 05:38 Dose: 102 mls/hr Insulin Aspart (Novolog) 0 unit SC ACHS [facility] PRN Reason: Protocol Last Admin: 10/27/16 08:28 Dose: Not Given Lidocaine (Lidoderm) 1 ea TD DAILY [facility] Metoclopramide HCl (Reglan) 10 mg PO ACTID [facility] Last Admin: 10/27/16 09:15 Dose: 10 mg Nifedipine (Procardia Xl) 90 mg PO DAILY [facility] Pantoprazole Sodium (Protonix Ec Tab) 40 mg PO DAILY [facility] Rosuvastatin Calcium (Crestor) 2.5 mg PO HS [facility] Timolol Maleate (Timoptic 0.25% Ophth Soln) 1 drop OD BID [facility] Physical Exam - Constitutional Additional comments: Mild to moderatee respiratory distress noted - Head Exam Head Exam: ATRAUMATIC, NORMOCEPHALIC - Eye Exam Additional comments: No icterus - ENT Exam ENT Exam: Mucous Membranes Moist - Respiratory Exam Respiratory Exam: Decreased Breath Sounds, Respiratory Distress - Cardiovascular Exam Cardiovascular Exam: REGULAR RHYTHM Additional comments: Lungs b/l crackles - GI/Abdominal Exam GI & Abdominal Exam: Soft, Tenderness - Extremities Exam Additional comments: No edema Results - Vital Signs Recent Vital Signs: Last Vital Signs Temp 98.4 F 10/27/16 08:00 Pulse 90 10/27/16 09:15 Resp 20 10/27/16 08:00 BP 126/81 10/27/16 09:15 Pulse Ox 99 10/27/16 08:00 - Labs Result Diagrams: 10/26/16 23:07 10/26/16 23:07 Labs: Laboratory Results - last 24 hr 10/27/16 06:09 POC Glucose (mg/dL) 71 Assessment & Plan - Assessment and Plan (Free Text) Assessment: ESRD, fluid overload HTN Lt breast cellulitis Rt heeh OM Plan: Urgent dialysis is ordered Renal diet CT of chest, abdomen report reviewed
[2016-10-27] MEDS: Lidocaine 5% Patch TD SCH (10:49)
[2016-10-27] MEDS: Pantoprazole 40 mg EC Tab PO SCH (10:49)
[2016-10-27] MEDS: NIFEdipine 90 mg ER Tab PO SCH (11:00)
--- NOTE | 2016-10-27 12:49 | CP.PCM.PCO ---
Physician Communication Note - Physician Communication Note Physician Communication Note: US shows nothing drainable- cont abx and warm compresses
--- NOTE | 2016-10-27 12:55 | US ---
EXAM: US Left Breast Complete CLINICAL HISTORY: 41 years old, female; Pain; Breast pain; Left; Additional info: R/O abscess TECHNIQUE: Static sonographic images of the left breast with image documentation utilizing a linear transducer. Imaging was obtained in all four quadrants, retroareolar region, and the axillae. EXAM DATE/TIME: 10/27/2016 7:14 AM COMPARISON: No relevant prior studies available. FINDINGS: A total of 25 images of the left breast were submitted. There is diffuse edema. There is no discrete cystic or solid lesion. There is a left axillary node of 2.7 x 1.2 cm. IMPRESSION: Diffuse edema left breast, no discrete mass. Recommend diagnostic mammogram and followup diagnostic breast sonogram. BI-RADS 0, Incomplete. Need additional imaging evaluation.
[2016-10-27] MEDS: EPOETIN ALFA 4,000 UNIT/ML ML Dialysis IV SCH (13:12)
--- NOTE | 2016-10-27 14:37 | CP.PCM.CON ---
History of Present Illness - History of Present Illness History of Present Illness: 41yo F w/ extensive PMH including ESRD on HD, HTN, IDDM, recently admitted for OM of the foot and discharged 10/25, who returned to ED yesterday night with complaints of Left breast pain and swelling. Pt states that this started approx 1 week ago while she was still in the hospital for Osteo. She noticed mild swelling and tenderness to the Left breast. After she was discharged she states the pain and swelling became progressively worse so she returned to the hospital. She denies any other complaints and denies any F/C, SOB/Cp, N/V. PMH: ESRD on HD, HTN, IDDM, OM, Anemia PSH: Cholecystectomy, Feeding tube, Left arm AVF, R toe amp Meds as per chart Allergies to Toradol, Morphine, Tramadol CT of the chest was done on admission which showed extensive soft tissue edema and thickening consistent with cellulitis, no focal abscess or fluid collection seen. PMH: Anemia, Depression, Diabetes, Gastritis (diabetic gastroparesis), HTN, Hypercholesterolemia, Pneumonia, End Stage Renal Disease (Dialysis M-W-F), Chronic Kidney Disease Surgical History: Cholecystectomy - [facility] Procedures BONE BIOPSY NEC (04/07/13) CATARAC PHACOEMULS/ASPIR (09/23/14) CONTRAST ARTERIOGRAM NEC (07/17/13) CONTRAST ARTERIOGRAM-LEG (04/07/13) DIALYSIS ARTERIOVENOSTOM (04/07/13) ESOPHAGOGASTRODUODENOSCOPY [EGD] W/CLOSED BIOPSY (09/19/13) EXCIS DEBRIDE OF WOUND, INFECT, OR BURN (07/17/13) EXCISION OF STOMACH, ENDO, DIAGN (09/13/16) EXCISION OF STOMACH, PYLORUS, ENDO, DIAGN (03/14/15) EXTRACTION OF LEFT FOOT SKIN, EXTERNAL APPROACH (10/07/16) EXTRACTION OF LEFT LOWER LEG SKIN, EXTERNAL APPROACH (06/16/16) HEMODIALYSIS (01/01/15) INCIS W REM OF FORIEGN BODY OR DEV FROM SKIN & SUBCUT TISSUE (05/27/13) INDIVID PSYCHOTHERAP NEC (04/20/13) INJECT/INFUSE NEC (11/09/13) INSERT LENS AT CATAR EXT (09/23/14) INSERTION OF INFUSION DEV INTO SUP VENA CAVA, PERC APPROACH (10/16/16) INSPECTION OF UPPER INTESTINAL TRACT, ENDO (03/10/16) OCCUPATIONAL THERAPY (04/30/13) OTHER GROUP THERAPY (04/20/13) OTHER SKIN & SUBQ I D (07/17/13) PERFORMANCE OF URINARY FILTRATION, MULTIPLE (10/16/16) PERFORMANCE OF URINARY FILTRATION, SINGLE (10/04/16) PHYSICAL THERAPY NEC (04/30/13) REMOVAL OF INFUSION DEV FROM GREAT VESSEL, PUBLIC IMPROVEMENT INSPECTOR APPROACH (10/16/16) TRANSFUSE NONAUT RED BLOOD CELLS IN PERIPH VEIN, PERC (06/10/15) ULTRASONOGRAPHY OF RIGHT AND LEFT HEART, TRANSESOPHAGEAL (06/19/15) ULTRASONOGRAPHY OF SUPERIOR VENA CAVA, GUIDANCE (10/07/16) Review of Systems - Constitutional Constitutional: As Per HPI - EENT Eyes: absent: As Per HPI, Blind Spots, Blurred Vision, Change in Vision, Decreased Night Vision, Diplopia, Discharge, Dry Eye, Exophthalmos, Floaters, Irritation, Itchy Eyes, Loss of Peripheral Vision, Pain, Photophobia, Requires Corrective Lenses, Sees Flashes, Spots in Vision, Tunnel Vision, Other Visual Disturbances, Loss of Vision, Other Ears: absent: As Per HPI, Decreased Hearing, Ear Discharge, Ear Pain, Tinnitus, Abnormal Hearing, Disequilibrium, Dizziness, Other Nose/Mouth/Throat: absent: As Per HPI, Epistaxis, Nasal Congestion, Nasal Discharge, Nasal Obstruction, Nasal Trauma, Nose Pain, Post Nasal Drip, Sinus Pain, Sinus Pressure, Bleeding Gums, Change in Voice, Dental Pain, Dry Mouth, Dysphagia, Halitosis, Hoarsness, Lip Swelling, Mouth Lesions, Mouth Pain, Odynophagia, Sore Throat, Throat Swelling, Tongue Swelling, Facial Pain, Neck Pain, Neck Mass, Other - Breasts Breasts: absent: As Per HPI, Change in Shape, Mass, Pain, Nipple Discharge, Nipple Inversion, Skin Changes, Swelling, Other - Cardiovascular Cardiovascular: absent: As Per HPI, Acrocyanosis, Chest Pain, Chest Pain at Rest , Chest Pain with Activity, Claudication, Diaphoresis, Dyspnea, Dyspnea on Exertion, Edema, Irregular Heart Rhythm, Pain Radiating to Arm/Neck/Jaw, Leg Edema, Leg Ulcers, Lightheadedness, Orthopnea, Palpitations, Paroxysmal Nocturnal Dyspnea, Pedal Edema, Radiating Pain, Rapid Heart Rate, Slow Heart Rate, Syncope, Other - Respiratory Respiratory: absent: As Per HPI, Cough, Dyspnea, Hemoptysis, Dyspnea on Exertion , Wheezing, Snoring, Stridor, Pain on Inspiration, Chest Congestion, Excessive Mucous Production, Change in Mucous Color, Pain with Coughing, Other - Gastrointestinal Gastrointestinal: absent: As Per HPI, Abdominal Pain, Belching, Bloating, Change in Bowel Habits, Change in Stool Character, Coffee Ground Emesis, Constipation, Cramping, Diarrhea, Dyspepsia, Dysphagia, Early Satiety, Excessive Flatus, Fecal Incontinence, Heartburn, Hematemesis, Hematochezia, Loose Stools, Melena, Nausea, Odynophagia, Temesmus, Vomiting, Other - Genitourinary Genitourinary: absent: As Per HPI, Change in Urinary Stream, Difficulty Urinating, Dysuria, Flank Pain, Hematuria, Pyuria, Nocturia, Urinary Incontinence, Urinary Frequency, Urinary Hesitance, Urinary Urgency, Voiding Freq/Small Amts, Freq UTI, Hx Renal/Bladder Calculi, Hx /Renal Surgery, Bladder Distension, Other - Reproductive: Female Reproductive:Female: absent: As Per HPI, Amenorrhea, Amenorrhea/ Control, Currently Menstual, Cycle <21 Days, Cycle >35 Days, Cycle Variable, Menses 1-7 Days, Menses >/= 8 Days, Menses Variable, Cycle > 4 Weeks Between, No Menses for 6 Months, Heavy Menses, Light Menses, Normal Menses, Spotting Between Cycles , S/P Hysterectomy, Menopausal, Post Menopausal, Premenarche, Abnormal Vaginal Bleeding, Dysmenorrhea, Dyspareunia, Genital Lesions, Genital Pruritis, Pelvic Pain, Prolapse Symptoms, Sexual Dysfunction, Vaginal Discharge, Vaginal Dryness , Vaginal Odor, Vaginal Pruritis, Other - Menstruation Menstruation: absent: As Per HPI, Amenorrhea, Amenorrhea/ Control, Currently Menstual, Cycle <21 Days, Cycle >35 Days, Cycle Variable, Menses 1-7 Days, Menses >/= 8 Days, Menses Variable, Cycle > 4 Weeks Between, No Menses for 6 Months, Heavy Menses, Light Menses, Normal Menses, Spotting Between Cycles , S/P Hysterectomy, Menopausal, Post Menopausal, Premenarche, Abnormal Vaginal Bleeding, Dysmenorrhea, Other - Musculoskeletal Musculoskeletal: As Per HPI - Integumentary Integumentary: As Per HPI - Neurological Neurological: absent: As Per HPI, Abnormal Gait, Abnormal Hearing, Abnormal Movements, Abnormal Speech, Behavioral Changes, Burning Sensations, Confusion, Convulsions, Disequilibrium, Dizziness, Numbness, Focal Weakness, Frequent Falls , Headaches, Lack of Coordination, Loss of Vision, Memory Loss, Paresthesias, Radicular Pain, Restless Legs, Sensory Deficit, Syncope, Tingling, Tremor, Vertigo, Weakness, Other Visual Disturbances, Other - Psychiatric Psychiatric: absent: As Per HPI, Abnormal Sleep Pattern, Anhedonia, Anxiety, Auditory Hallucinations, Behavioral Changes, Change in Appetite, Change in Libido, Confusion, Depression, Difficulty Concentrating, Hallucinations, Homicidal Ideation, Hopelessness, Irritability, Memory Loss, Mood Swings, Panic Attacks, Paranoia, Suicidal Ideation, Visual Hallucinations, Tactile Hallucinations, Other - Endocrine Endocrine: absent: As Per HPI, Change in Body Appearance, Change in Libido, Cold Intolorance, Deepening of Voice, Excessive Sweating, Fatigue, Flushing, Heat Intolorance, Increase in Ring/Shoe/Hat Size, Palpitations, Polydipsia, Polyphagia, Polyuria, Other - Hematologic/Lymphatic Hematologic: absent: As Per HPI, Easy Bleeding, Easy Bruising, Lymphadenopathy, Other Past Patient History - Infectious Disease Hx of Infectious Diseases: None - Past Medical History & Family History Past Medical History?: Yes - Past Social History Smoking Status: Former Smoker - CARDIAC Hx Hypercholesterolemia: Yes Hx Hypertension: Yes - PULMONARY Hx Pneumonia: Yes - HEENT Hx HEENT Problems: Yes Hx Cataracts: Yes (09/23/14 left) - RENAL Date of Last Dialysis Treatment: 10/25/16 - ENDOCRINE/METABOLIC Hx Diabetes Mellitus Type 2: Yes - HEMATOLOGICAL/ONCOLOGICAL Hx Anemia: Yes - INTEGUMENTARY Hx Dermatological Problems: Yes Other/Comment: right great toe amputation 2009 - MUSCULOSKELETAL/RHEUMATOLOGICAL Hx Falls: Yes - GASTROINTESTINAL Hx Gastritis: Yes (diabetic gastroparesis) - GENITOURINARY/GYNECOLOGICAL Hx Genitourinary Disorders: Yes Other/Comment: renal failure - PSYCHIATRIC Hx Substance Use: No - SURGICAL HISTORY Hx Section: Yes (1999) Hx Cholecystectomy: Yes (2010) - ANESTHESIA Hx Anesthesia: Yes Hx Anesthesia Reactions: No Hx Malignant Hyperthermia: No Has any member of the family had a problem w/ anesthesia?: No Meds Allergies/Adverse Reactions: Allergies Allergy/AdvReac Type Severity Reaction Status Date / Time ketorolac tromethamine Allergy Verified 10/26/16 21:13 [From Toradol] morphine Allergy Verified 10/26/16 21:13 tramadol Allergy RASH Verified 10/26/16 21:13 - Medications Medications: Current Medications Acetaminophen (Tylenol 325mg Tab) 650 mg PO Q4 PRN PRN Reason: Fever >100.4 F Calcium Acetate (Phoslo) 667 mg PO TIDCC [facility] Last Admin: 10/27/16 09:15 Dose: 667 mg Carvedilol (Coreg) 25 mg PO BID [facility] Clonidine HCl (Catapres-Tts3 0.3 Mg/24 Hr) 1 patch TD Q7D@1000 [facility] Diphenhydramine HCl (Benadryl) 25 mg PO Q8 PRN PRN Reason: Itching / Pruritus Last Admin: 10/27/16 10:49 Dose: 25 mg Epoetin Cornelius (Procrit) 8,000 unit IV MWF [facility] Last Admin: 10/27/16 13:12 Dose: 8,000 unit Gabapentin (Neurontin) 100 mg PO TID [facility] Last Admin: 10/27/16 10:49 Dose: 100 mg Heparin Sodium (Porcine) (Heparin) 5,000 units SC Q8 [facility] Last Admin: 10/27/16 06:24 Dose: 5,000 units Hydralazine HCl (Apresoline) 100 mg PO Q8 [facility] Last Admin: 10/27/16 06:20 Dose: 100 mg Hydromorphone HCl (Dilaudid) 2 mg PO Q6 PRN PRN Reason: Pain, severe (8-10) Hydromorphone HCl (Dilaudid) 1 mg IVP Q3H PRN PRN Reason: Pain, moderate (4-7) Last Admin: 10/27/16 09:16 Dose: 1 mg Ceftriaxone Sodium (Rocephin Iv 1 Gm Duplex) 50 mls @ 100 mls/hr IVPB DAILY [facility] Last Admin: 10/27/16 10:48 Dose: 100 mls/hr Clindamycin Phosphate (Cleocin) 600 mg in 50 mls @ 102 mls/hr IVPB Q8H [facility] Last Admin: 10/27/16 05:38 Dose: 102 mls/hr Insulin Aspart (Novolog) 0 unit SC ACHS [facility] PRN Reason: Protocol Last Admin: 10/27/16 08:28 Dose: Not Given Lidocaine (Lidoderm) 1 ea TD DAILY [facility] Last Admin: 10/27/16 10:49 Dose: 1 ea Metoclopramide HCl (Reglan) 10 mg PO ACTID [facility] Last Admin: 10/27/16 09:15 Dose: 10 mg Nifedipine (Procardia Xl) 90 mg PO DAILY [facility] Pantoprazole Sodium (Protonix Ec Tab) 40 mg PO DAILY [facility] Last Admin: 10/27/16 10:49 Dose: 40 mg Rosuvastatin Calcium (Crestor) 2.5 mg PO HS [facility] Timolol Maleate (Timoptic 0.25% Ophth Soln) 1 drop OD BID [facility] Physical Exam - Constitutional Appears: Non-toxic, Chronically Ill - Head Exam Head Exam: NORMOCEPHALIC - Eye Exam Eye Exam: PERRL. absent: Scleral icterus - ENT Exam ENT Exam: Mucous Membranes Dry, Normal External Ear Exam - Neck Exam Neck exam: Negative for: Lymphadenopathy - Respiratory Exam Respiratory Exam: Decreased Breath Sounds, Rhonchi - Cardiovascular Exam Cardiovascular Exam: REGULAR RHYTHM, +S1, +S2 - GI/Abdominal Exam GI & Abdominal Exam: Diminished Bowel Sounds, Soft. absent: Tenderness - Rectal Exam Rectal Exam: Deferred - Exam Exam: NORMAL INSPECTION - Extremities Exam Extremities exam: Positive for: pedal edema, tenderness. Negative for: calf tenderness, pedal pulses present - Back Exam Back exam: absent: CVA tenderness (L), CVA tenderness (R) - Neurological Exam Neurological exam: Alert, CN II-XII Intact, Oriented x3, Reflexes Normal - Psychiatric Exam Psychiatric exam: Normal Mood Results - Vital Signs Recent Vital Signs: Last Vital Signs Temp 98.3 F 10/27/16 11:30 Pulse 72 10/27/16 14:00 Resp 16 10/27/16 14:00 BP 135/94 H 10/27/16 14:00 Pulse Ox 96 10/27/16 14:00 - Labs Result Diagrams: 10/26/16 23:07 10/26/16 23:07 Labs: Laboratory Results - last 24 hr 10/27/16 10/27/16 06:09 12:11 POC Glucose (mg/dL) 71 126 H Assessment & Plan (1) Mastitis of left breast unrelated to or Status: Acute (2) DM2 (diabetes mellitus, type 2) Status: Chronic (3) ESRD (end stage renal disease) on dialysis Status: Chronic (4) Abdominal pain in female patient Status: Acute (5) Abdominal pain with vomiting Status: Acute - Assessment and Plan (Free Text) Assessment: will cont iv antibiotics wound care
[2016-10-27] MEDS: Timolol 0.25% Ophth SOLN OD SCH ×2 (15:00→17:45)
[2016-10-27] MEDS: Cefepime IV 1 gm in Dextrose 1 GM/50 ML BAG IVPB SCH (18:00)
[2016-10-27 19:50] LABS: HEPATITIS B SURFACE AG NEGATIVE (NEGATIVE)
[2016-10-27 19:55] LABS: HEPATITIS A IGM NEGATIVE (NEGATIVE); HEPATITIS B CORE AB NEGATIVE (NEGATIVE)
[2016-10-27 20:07] LABS: HEPATITIS C ANTIBODY NEGATIVE (NEGATIVE)
[2016-10-27] MEDS ORDERED: Linezolid 600 mg in D5W 300 ml 600 MG/300 ML BAG IVPB SCH (22:00)
[2016-10-27] MEDS: Rosuvastatin Calcium 2.5 mg Tab PO SCH (22:59)
--- NOTE | 2016-10-27 23:35 | CP.PCM.HP ---
History of Present Illness - History of Present Illness History of Present Illness: CC : right heel ulcer for I and D 41yo F w/ extensive PMH including ESRD on HD, HTN, IDDM, recently admitted for OM of the foot and discharged 10/25, who returned to ED yesterday night with complaints of Left breast pain and swelling. Pt states that this started approx 1 week ago while she was still in the hospital for Osteo. She noticed mild swelling and tenderness to the Left breast. After she was discharged she states the pain and swelling became progressively worse so she returned to the hospital. She denies any other complaints and denies any F/C, SOB/Cp, N/V. PMH: ESRD on HD, HTN, IDDM, OM, Anemia PSH: Cholecystectomy, Feeding tube, Left arm AVF, R toe amp Meds as per chart Allergies to Toradol, Morphine, Tramadol CT of the chest was done on admission which showed extensive soft tissue edema and thickening consistent with cellulitis, no focal abscess or fluid collection seen. Present on Admission - Present on Admission Any Indicators Present on Admission: Yes Review of Systems - Review of Systems Systems not reviewed;Unavailable: Acuity of Condition - Constitutional Constitutional: Fatigue, Lethargy, Malaise - EENT Eyes: absent: As Per HPI, Blind Spots, Blurred Vision, Change in Vision, Decreased Night Vision, Diplopia, Discharge, Dry Eye, Exophthalmos, Floaters, Irritation, Itchy Eyes, Loss of Peripheral Vision, Pain, Photophobia, Requires Corrective Lenses, Sees Flashes, Spots in Vision, Tunnel Vision, Other Visual Disturbances, Loss of Vision, Other Nose/Mouth/Throat: absent: As Per HPI, Epistaxis, Nasal Congestion, Nasal Discharge, Nasal Obstruction, Nasal Trauma, Nose Pain, Post Nasal Drip, Sinus Pain, Sinus Pressure, Bleeding Gums, Change in Voice, Dental Pain, Dry Mouth, Dysphagia, Halitosis, Hoarsness, Lip Swelling, Mouth Lesions, Mouth Pain, Odynophagia, Sore Throat, Throat Swelling, Tongue Swelling, Facial Pain, Neck Pain, Neck Mass, Other - Breasts Breasts: absent: As Per HPI, Change in Shape, Mass, Pain, Nipple Discharge, Nipple Inversion, Skin Changes, Swelling, Other - Cardiovascular Cardiovascular: absent: As Per HPI, Acrocyanosis, Chest Pain, Chest Pain at Rest , Chest Pain with Activity, Claudication, Diaphoresis, Dyspnea, Dyspnea on Exertion, Edema, Irregular Heart Rhythm, Pain Radiating to Arm/Neck/Jaw, Leg Edema, Leg Ulcers, Lightheadedness, Orthopnea, Palpitations, Paroxysmal Nocturnal Dyspnea, Pedal Edema, Radiating Pain, Rapid Heart Rate, Slow Heart Rate, Syncope, Other - Respiratory Respiratory: absent: As Per HPI, Cough, Dyspnea, Hemoptysis, Dyspnea on Exertion , Wheezing, Snoring, Stridor, Pain on Inspiration, Chest Congestion, Excessive Mucous Production, Change in Mucous Color, Pain with Coughing, Other - Gastrointestinal Gastrointestinal: absent: As Per HPI, Abdominal Pain, Belching, Bloating, Change in Bowel Habits, Change in Stool Character, Coffee Ground Emesis, Constipation, Cramping, Diarrhea, Dyspepsia, Dysphagia, Early Satiety, Excessive Flatus, Fecal Incontinence, Heartburn, Hematemesis, Hematochezia, Loose Stools, Melena, Nausea, Odynophagia, Temesmus, Vomiting, Other Past Patient History - Infectious Disease Hx of Infectious Diseases: None - Past Medical History & Family History Past Medical History?: Yes - Past Social History Smoking Status: Former Smoker - CARDIAC Hx Hypercholesterolemia: Yes Hx Hypertension: Yes - PULMONARY Hx Pneumonia: Yes - HEENT Hx HEENT Problems: Yes Hx Cataracts: Yes (09/23/14 left) - RENAL Date of Last Dialysis Treatment: 10/25/16 - ENDOCRINE/METABOLIC Hx Diabetes Mellitus Type 2: Yes - HEMATOLOGICAL/ONCOLOGICAL Hx Anemia: Yes - INTEGUMENTARY Hx Dermatological Problems: Yes Other/Comment: right great toe amputation 2009 - MUSCULOSKELETAL/RHEUMATOLOGICAL Hx Falls: Yes - GASTROINTESTINAL Hx Gastritis: Yes (diabetic gastroparesis) - GENITOURINARY/GYNECOLOGICAL Hx Genitourinary Disorders: Yes Other/Comment: renal failure - PSYCHIATRIC Hx Substance Use: No - SURGICAL HISTORY Hx Section: Yes (1999) Hx Cholecystectomy: Yes (2010) - ANESTHESIA Hx Anesthesia: Yes Hx Anesthesia Reactions: No Hx Malignant Hyperthermia: No Has any member of the family had a problem w/ anesthesia?: No Meds Allergies/Adverse Reactions: Allergies Allergy/AdvReac Type Severity Reaction Status Date / Time ketorolac tromethamine Allergy Verified 10/26/16 21:13 [From Toradol] morphine Allergy Verified 10/26/16 21:13 tramadol Allergy RASH Verified 10/26/16 21:13 Physical Exam - Constitutional Appears: No Acute Distress - Head Exam Head Exam: ATRAUMATIC, NORMAL INSPECTION, NORMOCEPHALIC - Eye Exam Eye Exam: EOMI, Normal appearance, PERRL Pupil Exam: NORMAL ACCOMODATION, PERRL - ENT Exam ENT Exam: Mucous Membranes Moist, Normal Exam - Neck Exam Neck exam: Positive for: Normal Inspection - GI/Abdominal Exam GI & Abdominal Exam: Normal Bowel Sounds, Soft. absent: Tenderness - Rectal Exam Rectal Exam: Deferred - Extremities Exam Extremities exam: Positive for: joint swelling, pedal edema, tenderness Results - Vital Signs Recent Vital Signs: Last Vital Signs Temp 98.4 F 10/27/16 15:30 Pulse 85 10/27/16 22:55 Resp 20 10/27/16 15:30 BP 161/71 H 10/27/16 22:55 Pulse Ox 98 10/27/16 15:30 - Labs Result Diagrams: 10/26/16 23:07 10/26/16 23:07 Labs: Laboratory Results - last 24 hr 10/27/16 10/27/16 10/27/16 06:09 12:11 17:03 POC Glucose (mg/dL) 71 126 H 155 H Hepatitis A IgM Ab Hep Bs Antigen Hep B Core IgM Ab Hepatitis C Antibody 10/27/16 10/27/16 19:04 21:39 POC Glucose (mg/dL) 71 Hepatitis A IgM Ab Negative Hep Bs Antigen Negative Hep B Core IgM Ab Negative Hepatitis C Antibody Negative Assessment & Plan (1) Ulcer of right heel Status: Acute (2) DM2 (diabetes mellitus, type 2) Status: Chronic (3) ESRD (end stage renal disease) on dialysis Status: Chronic (4) Hypertension Status: Chronic
[2016-10-28] MEDS: HYDROmorphone 1 mg/ml ISec IVP PRN ×7 (00:05→22:24)
[2016-10-28] MEDS: (Novolog) Insulin Aspart, Recombinant 100 u/ml 10 ml vial SC SCH ×4 (07:41→22:00)
[2016-10-28] MEDS: NIFEdipine 90 mg ER Tab PO SCH (09:22)
[2016-10-28] MEDS: Pantoprazole 40 mg EC Tab PO SCH (09:23)
[2016-10-28] MEDS: Timolol 0.25% Ophth SOLN OD SCH ×2 (09:24→17:58)
[2016-10-28] MEDS: Lidocaine 5% Patch TD SCH (09:31)
--- NOTE | 2016-10-28 10:29 | CP.PCM.PN ---
<Isaac Wolf - Last Filed: 10/28/16 10:30> Subjective - Date & Time of Evaluation Date of Evaluation: 10/28/16 Time of Evaluation: 10:27 - Subjective Subjective: Surgery: Dr. Valdez Pt seen and examined. Continues to have breast pain. No improvement from yesterday. Objective - Vital Signs/Intake and Output Vital Signs (last 24 hours): Temp Pulse Resp BP Pulse Ox 98.4 F 82 20 152/68 H 100 10/28/16 08:46 10/28/16 08:46 10/28/16 08:46 10/28/16 09:23 10/28/16 08:46 Intake and Output: 10/28/16 10/28/16 06:59 18:59 Intake Total 640 Balance 640 - Medications Medications: Current Medications Acetaminophen (Tylenol 325mg Tab) 650 mg PO Q4 PRN PRN Reason: Fever >100.4 F Calcium Acetate (Phoslo) 667 mg PO TIDCC [facility] Last Admin: 10/28/16 08:22 Dose: 667 mg Carvedilol (Coreg) 25 mg PO BID [facility] Last Admin: 10/28/16 09:23 Dose: 25 mg Clonidine HCl (Catapres-Tts3 0.3 Mg/24 Hr) 1 patch TD Q7D@1000 [facility] Last Admin: 10/27/16 15:55 Dose: 1 patch Diphenhydramine HCl (Benadryl) 25 mg PO Q8 PRN PRN Reason: Itching / Pruritus Last Admin: 10/28/16 06:30 Dose: 25 mg Epoetin Cornelius (Procrit) 8,000 unit IV MWF [facility] Last Admin: 10/27/16 13:12 Dose: 8,000 unit Gabapentin (Neurontin) 100 mg PO TID [facility] Last Admin: 10/28/16 09:23 Dose: 100 mg Heparin Sodium (Porcine) (Heparin) 5,000 units SC Q8 [facility] Last Admin: 10/28/16 06:06 Dose: 5,000 units Hydralazine HCl (Apresoline) 100 mg PO Q8 [facility] Last Admin: 10/28/16 06:11 Dose: 100 mg Hydromorphone HCl (Dilaudid) 2 mg PO Q6 PRN PRN Reason: Pain, severe (8-10) Hydromorphone HCl (Dilaudid) 1 mg IVP Q3H PRN PRN Reason: Pain, moderate (4-7) Last Admin: 10/28/16 09:29 Dose: 1 mg Vancomycin HCl 500 mg/ Sodium (Chloride) 100 mls @ 100 mls/hr IVPB MWF [facility] Cefepime HCl (Maxipime Iv 1 Gm Premix) 1 gm in 50 mls @ 100 mls/hr IVPB Q24H [facility] Last Admin: 10/27/16 18:00 Dose: 100 mls/hr Insulin Aspart (Novolog) 0 unit SC ACHS [facility] PRN Reason: Protocol Last Admin: 10/28/16 07:41 Dose: Not Given Lidocaine (Lidoderm) 1 ea TD DAILY [facility] Last Admin: 10/28/16 09:31 Dose: 1 ea Metoclopramide HCl (Reglan) 5 mg PO 0600,1130,1630,2200 [facility] Last Admin: 10/28/16 06:30 Dose: 5 mg Nifedipine (Procardia Xl) 90 mg PO DAILY [facility] Last Admin: 10/28/16 09:22 Dose: 90 mg Pantoprazole Sodium (Protonix Ec Tab) 40 mg PO DAILY [facility] Last Admin: 10/28/16 09:23 Dose: 40 mg Rosuvastatin Calcium (Crestor) 2.5 mg PO HS [facility] Last Admin: 10/27/16 22:59 Dose: 2.5 mg Timolol Maleate (Timoptic 0.25% Ophth Soln) 1 drop OD BID [facility] Last Admin: 10/28/16 09:24 Dose: 1 drop - Labs Labs: PT 12.6 SECONDS (9.7-12.2) H 10/26/16 23:07 INR 1.1 10/26/16 23:07 APTT 36 SECONDS (21-34) H 10/26/16 23:07 - Constitutional Appears: Non-toxic, No Acute Distress - Head Exam Head Exam: ATRAUMATIC, NORMOCEPHALIC - Eye Exam Eye Exam: EOMI - ENT Exam ENT Exam: Mucous Membranes Moist - Neck Exam Neck Exam: Full ROM - Respiratory Exam Respiratory Exam: NORMAL BREATHING PATTERN. absent: Accessory Muscle Use, Respiratory Distress - Neurological Exam Neurological Exam: Alert, Awake, Oriented x3 - Skin Additional comments: L breast: tender to palpation on inferior aspect, no fluctuance appreciated, no drainage noted Nurse present for exam Assessment and Plan - Assessment and Plan (Free Text) Assessment: 41F w. L breast mastitis -U/S: diffuse edema L breast, dx mammogram recommended -Mammogram ordered, f/u results -c/w warm compresses TID 20 min -c/w abx -c/w pain meds -d/w attending Maryann PGY2 <Rajinder Valdez - Last Filed: 10/30/16 22:04> Objective - Vital Signs/Intake and Output Vital Signs (last 24 hours): Temp Pulse Resp BP Pulse Ox 98.1 F 85 18 136/60 97 10/30/16 16:00 10/30/16 16:00 10/30/16 16:00 10/30/16 17:25 10/30/16 16:00 Intake and Output: 10/30/16 10/31/16 18:59 06:59 Intake Total 580 Balance 580 - Medications Medications: Current Medications Acetaminophen (Tylenol 325mg Tab) 650 mg PO Q4 PRN PRN Reason: Fever >100.4 F Calcium Acetate (Phoslo) 667 mg PO TIDCC [facility] Last Admin: 10/30/16 17:26 Dose: 667 mg Carvedilol (Coreg) 25 mg PO BID [facility] Last Admin: 10/30/16 17:25 Dose: 25 mg Clonidine HCl (Catapres-Tts3 0.3 Mg/24 Hr) 1 patch TD Q7D@1000 [facility] Last Admin: 10/27/16 15:55 Dose: 1 patch Diphenhydramine HCl (Benadryl) 25 mg PO Q8 PRN PRN Reason: Itching / Pruritus Last Admin: 10/29/16 21:26 Dose: 25 mg Epoetin Cornelius (Procrit) 8,000 unit IV MWF [facility] Last Admin: 10/30/16 10:09 Dose: 8,000 unit Gabapentin (Neurontin) 100 mg PO TID [facility] Last Admin: 10/30/16 17:25 Dose: 100 mg Hydralazine HCl (Apresoline) 100 mg PO Q8 [facility] Last Admin: 10/30/16 21:19 Dose: 100 mg Hydromorphone HCl (Dilaudid) 1 mg IVP Q3H PRN PRN Reason: Pain, moderate (4-7) Last Admin: 10/30/16 20:34 Dose: 1 mg Vancomycin HCl 500 mg/ Sodium (Chloride) 100 mls @ 100 mls/hr IVPB MWF [facility] Last Admin: 10/30/16 13:07 Dose: 100 mls/hr Cefepime HCl (Maxipime Iv 1 Gm Premix) 1 gm in 50 mls @ 100 mls/hr IVPB Q24H [facility] Last Admin: 10/30/16 17:00 Dose: 100 mls/hr Insulin Aspart (Novolog) 0 unit SC ACHS [facility] PRN Reason: Protocol Last Admin: 10/30/16 17:08 Dose: Not Given Lidocaine (Lidoderm) 1 ea TD DAILY [facility] Last Admin: 10/30/16 15:06 Dose: 1 ea Metoclopramide HCl (Reglan) 5 mg PO 0600,1130,1630,2200 [facility] Last Admin: 10/30/16 17:25 Dose: 5 mg Nifedipine (Procardia Xl) 90 mg PO DAILY [facility] Last Admin: 10/30/16 13:10 Dose: 90 mg Pantoprazole Sodium (Protonix Ec Tab) 40 mg PO DAILY [facility] Last Admin: 10/30/16 13:06 Dose: 40 mg Rosuvastatin Calcium (Crestor) 2.5 mg PO HS [facility] Last Admin: 10/30/16 21:19 Dose: 2.5 mg Timolol Maleate (Timoptic 0.25% Oph Soln) 1 drop OD BID [facility] Last Admin: 10/30/16 17:29 Dose: 1 drop - Labs Labs: PT 12.6 SECONDS (9.7-12.2) H 10/26/16 23:07 INR 1.1 10/26/16 23:07 APTT 36 SECONDS (21-34) H 10/26/16 23:07 Attending/Attestation - Attestation I have personally seen and examined this patient.: Yes I have fully participated in the care of the patient.: Yes I have reviewed all pertinent clinical information, including history, physical exam and plan: Yes Notes (Text): 10/30/16 22:03 Pt was seen and examined at bedside on 10/28/16 Agree with above note and assessment Pt with Left breast pain and cellulitis Pt would need Mammogram C/w IV antibiotics Plan d.w pt in detail Risk and benefit explained in detail.
--- NOTE | 2016-10-28 11:30 | CP.PCM.CON ---
History of Present Illness - History of Present Illness History of Present Illness: 41 y/o female with PMH of ESRD on HD, HTN, IDDM was seen at bedside with attending Dr. Bran for left heel ulcer. She states that she was here last week and was recently discharged. Pt appears in NAD and is AAOx3. Pt denies of any acute events overnight. Patient denies any pedal pain today. Pt's dressing appears clean, dry and intact. Patient states she is here for swollen chest. Patient denies any symptoms of N/V/F/SOB/Chest pain. Past Patient History - Infectious Disease Hx of Infectious Diseases: None - Past Medical History & Family History Past Medical History?: Yes - Past Social History Smoking Status: Former Smoker - CARDIAC Hx Hypercholesterolemia: Yes Hx Hypertension: Yes - PULMONARY Hx Pneumonia: Yes - HEENT Hx HEENT Problems: Yes Hx Cataracts: Yes (09/23/14 left) - RENAL Date of Last Dialysis Treatment: 10/25/16 - ENDOCRINE/METABOLIC Hx Diabetes Mellitus Type 2: Yes - HEMATOLOGICAL/ONCOLOGICAL Hx Anemia: Yes - INTEGUMENTARY Hx Dermatological Problems: Yes Other/Comment: right great toe amputation 2009 - MUSCULOSKELETAL/RHEUMATOLOGICAL Hx Falls: Yes - GASTROINTESTINAL Hx Gastritis: Yes (diabetic gastroparesis) - GENITOURINARY/GYNECOLOGICAL Hx Genitourinary Disorders: Yes Other/Comment: renal failure - PSYCHIATRIC Hx Substance Use: No - SURGICAL HISTORY Hx Section: Yes (1999) Hx Cholecystectomy: Yes (2010) - ANESTHESIA Hx Anesthesia: Yes Hx Anesthesia Reactions: No Hx Malignant Hyperthermia: No Has any member of the family had a problem w/ anesthesia?: No Meds Allergies/Adverse Reactions: Allergies Allergy/AdvReac Type Severity Reaction Status Date / Time ketorolac tromethamine Allergy Verified 10/26/16 21:13 [From Toradol] morphine Allergy Verified 10/26/16 21:13 tramadol Allergy RASH Verified 10/26/16 21:13 - Medications Medications: Current Medications Acetaminophen (Tylenol 325mg Tab) 650 mg PO Q4 PRN PRN Reason: Fever >100.4 F Calcium Acetate (Phoslo) 667 mg PO TIDCC [facility] Last Admin: 10/28/16 08:22 Dose: 667 mg Carvedilol (Coreg) 25 mg PO BID [facility] Last Admin: 10/28/16 09:23 Dose: 25 mg Clonidine HCl (Catapres-Tts3 0.3 Mg/24 Hr) 1 patch TD Q7D@1000 [facility] Last Admin: 10/27/16 15:55 Dose: 1 patch Diphenhydramine HCl (Benadryl) 25 mg PO Q8 PRN PRN Reason: Itching / Pruritus Last Admin: 10/28/16 06:30 Dose: 25 mg Epoetin Cornelius (Procrit) 8,000 unit IV MWF [facility] Last Admin: 10/27/16 13:12 Dose: 8,000 unit Gabapentin (Neurontin) 100 mg PO TID [facility] Last Admin: 10/28/16 09:23 Dose: 100 mg Heparin Sodium (Porcine) (Heparin) 5,000 units SC Q8 [facility] Last Admin: 10/28/16 06:06 Dose: 5,000 units Hydralazine HCl (Apresoline) 100 mg PO Q8 [facility] Last Admin: 10/28/16 06:11 Dose: 100 mg Hydromorphone HCl (Dilaudid) 2 mg PO Q6 PRN PRN Reason: Pain, severe (8-10) Hydromorphone HCl (Dilaudid) 1 mg IVP Q3H PRN PRN Reason: Pain, moderate (4-7) Last Admin: 10/28/16 09:29 Dose: 1 mg Vancomycin HCl 500 mg/ Sodium (Chloride) 100 mls @ 100 mls/hr IVPB [facility] Cefepime HCl (Maxipime Iv 1 Gm Premix) 1 gm in 50 mls @ 100 mls/hr IVPB Q24H [facility] Last Admin: 10/27/16 18:00 Dose: 100 mls/hr Insulin Aspart (Novolog) 0 unit SC ACHS [facility] PRN Reason: Protocol Last Admin: 10/28/16 07:41 Dose: Not Given Lidocaine (Lidoderm) 1 ea TD DAILY [facility] Last Admin: 10/28/16 09:31 Dose: 1 ea Metoclopramide HCl (Reglan) 5 mg PO 0600,1130,1630,2200 [facility] Last Admin: 10/28/16 06:30 Dose: 5 mg Nifedipine (Procardia Xl) 90 mg PO DAILY [facility] Last Admin: 10/28/16 09:22 Dose: 90 mg Pantoprazole Sodium (Protonix Ec Tab) 40 mg PO DAILY [facility] Last Admin: 06/24/17 09:23 Dose: 40 mg Rosuvastatin Calcium (Crestor) 2.5 mg PO HS [facility] Last Admin: 10/27/16 22:59 Dose: 2.5 mg Timolol Maleate (Timoptic 0.25% Ophth Soln) 1 drop OD BID [facility] Last Admin: 10/28/16 09:24 Dose: 1 drop Physical Exam - Constitutional Appears: Well, Non-toxic, No Acute Distress - Extremities Exam Additional comments: Left lower extremity focused exam: Vasc: DP/PT pulses 2/4, [employer]<3 seconds, skin temperature normal, mild edema of the left foot Derm: Pre-ulcerative lesion to the left heel. No clinical signs of infection: no erythema, no streaking. Serous drainage present. Negative malodor. Neuro: Protective sensation decreased Ortho: Pain on palpation to the left heel. - Neurological Exam Neurological exam: Alert, Oriented x3 - Psychiatric Exam Psychiatric exam: Normal Affect, Normal Mood Results - Vital Signs Recent Vital Signs: Last Vital Signs Temp 98.4 F 10/28/16 08:46 Pulse 82 10/28/16 08:46 Resp 20 10/28/16 08:46 BP 152/68 H 10/28/16 09:23 Pulse Ox 100 10/28/16 08:46 - Labs Result Diagrams: 10/26/16 23:07 10/26/16 23:07 Labs: Laboratory Results - last 24 hr 10/27/16 10/27/16 10/27/16 12:11 17:03 19:04 POC Glucose (mg/dL) 126 H 155 H Hepatitis A IgM Ab Negative Hep Bs Antigen Negative Hep B Core IgM Ab Negative Hepatitis C Antibody Negative 10/27/16 10/28/16 21:39 06:13 POC Glucose (mg/dL) 71 126 H Hepatitis A IgM Ab Hep Bs Antigen Hep B Core IgM Ab Hepatitis C Antibody Assessment & Plan - Assessment and Plan (Free Text) Assessment: 40 year old female history of left heel OM with chronic left heel pre- ulcerative lesion Plan: Patient seen and evaluated at bedside with attending Dr. Bran Labs, chart and vitals were reviewed All questions and concerns were addressed Left foot dressing was changed with Xeroform, and DSD Ordered prevalon boots for bilaterally foot, patient to wear while in bed Podiatry will continue to follow patient while in house
[2016-10-28] MEDS: Cefepime IV 1 gm in Dextrose 1 GM/50 ML BAG IVPB SCH (17:59)
[2016-10-28] MEDS: Rosuvastatin Calcium 2.5 mg Tab PO SCH (22:25)
--- NOTE | 2016-10-28 23:21 | CP.PCM.PN ---
Subjective - Date & Time of Evaluation Date of Evaluation: 10/28/16 Time of Evaluation: 20:00 - Subjective Subjective: seen and examined, continues to c/o left breast pain, also followed up by podiatry for left heel ulcer and surgery Objective - Vital Signs/Intake and Output Vital Signs (last 24 hours): Temp Pulse Resp BP Pulse Ox 97.9 F 79 18 130/80 100 10/28/16 15:46 10/28/16 15:46 10/28/16 15:46 10/28/16 18:00 10/28/16 15:46 Intake and Output: 10/28/16 10/29/16 18:59 06:59 Intake Total 480 470 Balance 480 470 - Medications Medications: Current Medications Acetaminophen (Tylenol 325mg Tab) 650 mg PO Q4 PRN PRN Reason: Fever >100.4 F Calcium Acetate (Phoslo) 667 mg PO TIDCC [facility] Last Admin: 10/28/16 17:58 Dose: 667 mg Carvedilol (Coreg) 25 mg PO BID [facility] Last Admin: 10/28/16 18:00 Dose: 25 mg Clonidine HCl (Catapres-Tts3 0.3 Mg/24 Hr) 1 patch TD Q7D@1000 [facility] Last Admin: 10/27/16 15:55 Dose: 1 patch Diphenhydramine HCl (Benadryl) 25 mg PO Q8 PRN PRN Reason: Itching / Pruritus Last Admin: 10/28/16 22:24 Dose: 25 mg Epoetin Cornelius (Procrit) 8,000 unit IV MWF [facility] Last Admin: 10/27/16 13:12 Dose: 8,000 unit Gabapentin (Neurontin) 100 mg PO TID [facility] Last Admin: 10/28/16 18:00 Dose: 100 mg Heparin Sodium (Porcine) (Heparin) 5,000 units SC Q8 [facility] Last Admin: 10/28/16 22:24 Dose: 5,000 units Hydralazine HCl (Apresoline) 100 mg PO Q8 [facility] Last Admin: 10/28/16 22:25 Dose: 100 mg Hydromorphone HCl (Dilaudid) 2 mg PO Q6 PRN PRN Reason: Pain, severe (8-10) Hydromorphone HCl (Dilaudid) 1 mg IVP Q3H PRN PRN Reason: Pain, moderate (4-7) Last Admin: 10/28/16 22:24 Dose: 1 mg Vancomycin HCl 500 mg/ Sodium (Chloride) 100 mls @ 100 mls/hr IVPB MWF [facility] Cefepime HCl (Maxipime Iv 1 Gm Premix) 1 gm in 50 mls @ 100 mls/hr IVPB Q24H [facility] Last Admin: 10/28/16 17:59 Dose: 100 mls/hr Insulin Aspart (Novolog) 0 unit SC ACHS [facility] PRN Reason: Protocol Last Admin: 10/28/16 17:57 Dose: 1 unit Lidocaine (Lidoderm) 1 ea TD DAILY [facility] Last Admin: 10/28/16 09:31 Dose: 1 ea Metoclopramide HCl (Reglan) 5 mg PO 0600,1130,1630,2200 [facility] Last Admin: 10/28/16 22:25 Dose: 5 mg Nifedipine (Procardia Xl) 90 mg PO DAILY [facility] Last Admin: 10/28/16 09:22 Dose: 90 mg Pantoprazole Sodium (Protonix Ec Tab) 40 mg PO DAILY [facility] Last Admin: 10/28/16 09:23 Dose: 40 mg Rosuvastatin Calcium (Crestor) 2.5 mg PO HS [facility] Last Admin: 10/28/16 22:25 Dose: 2.5 mg Timolol Maleate (Timoptic 0.25% Oph Soln) 1 drop OD BID [facility] Last Admin: 10/28/16 17:58 Dose: 1 drop - Labs Labs: PT 12.6 SECONDS (9.7-12.2) H 10/26/16 23:07 INR 1.1 10/26/16 23:07 APTT 36 SECONDS (21-34) H 10/26/16 23:07 - Constitutional Appears: In Acute Distress - ENT Exam ENT Exam: Mucous Membranes Moist, Normal Exam - Neck Exam Neck Exam: Full ROM, Normal Inspection. absent: Lymphadenopathy - Respiratory Exam Respiratory Exam: Clear to Ausculation Bilateral, NORMAL BREATHING PATTERN - Cardiovascular Exam Cardiovascular Exam: REGULAR RHYTHM, +S1, +S2. absent: Murmur - GI/Abdominal Exam GI & Abdominal Exam: Soft, Normal Bowel Sounds. absent: Tenderness - Skin Additional comments: L breast: tender to palpation on inferior aspect, no fluctuance appreciated, no drainage noted Nurse present for exam Assessment and Plan (1) Ulcer of right heel Status: Acute (2) DM2 (diabetes mellitus, type 2) Status: Chronic (3) ESRD (end stage renal disease) on dialysis Status: Chronic (4) Hypertension Status: Chronic (5) Mastitis of left breast unrelated to or Assessment & Plan: Assessment and Plan - Assessment and Plan (Free Text) Assessment: 41F w. L breast mastitis -U/S: diffuse edema L breast, dx mammogram recommended -Mammogram ordered, f/u results -c/w warm compresses TID 20 min -c/w abx -c/w pain meds -d/w attending Status: Acute
[2016-10-29] MEDS: HYDROmorphone 1 mg/ml ISec IVP PRN ×5 (01:49→21:26)
--- NOTE | 2016-10-29 06:31 | CP.PCM.PN ---
<Isaac Wolf - Last Filed: 10/29/16 06:29> Subjective - Date & Time of Evaluation Date of Evaluation: 10/29/16 Time of Evaluation: 06:29 - Subjective Subjective: Surgery: Dr. Valdez Pt seen and examined. Continues to have breast pain, unchanged compared to yesterday. +Night sweats. 1 episode of vomiting yesterday. Objective - Vital Signs/Intake and Output Vital Signs (last 24 hours): Temp Pulse Resp BP Pulse Ox 97.3 F L 86 20 161/79 H 97 10/28/16 23:10 10/28/16 23:10 10/28/16 23:10 10/28/16 23:10 10/28/16 23:10 Intake and Output: 10/28/16 10/29/16 18:59 06:59 Intake Total 480 470 Balance 480 470 - Medications Medications: Current Medications Acetaminophen (Tylenol 325mg Tab) 650 mg PO Q4 PRN PRN Reason: Fever >100.4 F Calcium Acetate (Phoslo) 667 mg PO TIDCC [facility] Last Admin: 10/28/16 17:58 Dose: 667 mg Carvedilol (Coreg) 25 mg PO BID [facility] Last Admin: 10/28/16 18:00 Dose: 25 mg Clonidine HCl (Catapres-Tts3 0.3 Mg/24 Hr) 1 patch TD Q7D@1000 [facility] Last Admin: 10/27/16 15:55 Dose: 1 patch Diphenhydramine HCl (Benadryl) 25 mg PO Q8 PRN PRN Reason: Itching / Pruritus Last Admin: 10/28/16 22:24 Dose: 25 mg Epoetin Cornelius (Procrit) 8,000 unit IV MWF [facility] Last Admin: 10/27/16 13:12 Dose: 8,000 unit Gabapentin (Neurontin) 100 mg PO TID [facility] Last Admin: 10/28/16 18:00 Dose: 100 mg Heparin Sodium (Porcine) (Heparin) 5,000 units SC Q8 [facility] Last Admin: 10/29/16 06:08 Dose: 5,000 units Hydralazine HCl (Apresoline) 100 mg PO Q8 [facility] Last Admin: 10/29/16 06:08 Dose: 100 mg Hydromorphone HCl (Dilaudid) 2 mg PO Q6 PRN PRN Reason: Pain, severe (8-10) Hydromorphone HCl (Dilaudid) 1 mg IVP Q3H PRN PRN Reason: Pain, moderate (4-7) Last Admin: 10/29/16 06:08 Dose: 1 mg Vancomycin HCl 500 mg/ Sodium (Chloride) 100 mls @ 100 mls/hr IVPB MWF [facility] Cefepime HCl (Maxipime Iv 1 Gm Premix) 1 gm in 50 mls @ 100 mls/hr IVPB Q24H [facility] Last Admin: 10/28/16 17:59 Dose: 100 mls/hr Insulin Aspart (Novolog) 0 unit SC ACHS [facility] PRN Reason: Protocol Last Admin: 10/28/16 17:57 Dose: 1 unit Lidocaine (Lidoderm) 1 ea TD DAILY [facility] Last Admin: 10/28/16 09:31 Dose: 1 ea Metoclopramide HCl (Reglan) 5 mg PO 0600,1130,1630,2200 [facility] Last Admin: 10/28/16 22:25 Dose: 5 mg Nifedipine (Procardia Xl) 90 mg PO DAILY [facility] Last Admin: 10/28/16 09:22 Dose: 90 mg Pantoprazole Sodium (Protonix Ec Tab) 40 mg PO DAILY [facility] Last Admin: 10/28/16 09:23 Dose: 40 mg Rosuvastatin Calcium (Crestor) 2.5 mg PO HS [facility] Last Admin: 10/28/16 22:25 Dose: 2.5 mg Timolol Maleate (Timoptic 0.25% Ophth Soln) 1 drop OD BID [facility] Last Admin: 10/28/16 17:58 Dose: 1 drop - Labs Labs: PT 12.6 SECONDS (9.7-12.2) H 10/26/16 23:07 INR 1.1 10/26/16 23:07 APTT 36 SECONDS (21-34) H 10/26/16 23:07 - Constitutional Appears: Non-toxic, No Acute Distress - Head Exam Head Exam: ATRAUMATIC, NORMOCEPHALIC - Eye Exam Eye Exam: EOMI - ENT Exam ENT Exam: Mucous Membranes Moist - Neck Exam Neck Exam: Full ROM - Respiratory Exam Respiratory Exam: NORMAL BREATHING PATTERN. absent: Accessory Muscle Use, Respiratory Distress - GI/Abdominal Exam GI & Abdominal Exam: Soft. absent: Tenderness - Neurological Exam Neurological Exam: Alert, Awake, Oriented x3 - Skin Additional comments: L breast: Tender to palpation, warm to touch, no drainage Assessment and Plan - Assessment and Plan (Free Text) Assessment: 41F w. L breast mastitis -f/u AM labs -Mammogram ordered, f/u results -c/w abx -c/w pain meds -warm compress TID 20 min -will continue to follow closely -d/w attending Maryann PGY2 <Rajinder Valdez - Last Filed: 10/30/16 22:11> Objective - Vital Signs/Intake and Output Vital Signs (last 24 hours): Temp Pulse Resp BP Pulse Ox 98.1 F 85 18 136/60 97 10/30/16 16:00 10/30/16 16:00 10/30/16 16:00 10/30/16 17:25 10/30/16 16:00 Intake and Output: 10/30/16 10/31/16 18:59 06:59 Intake Total 580 Balance 580 - Medications Medications: Current Medications Acetaminophen (Tylenol 325mg Tab) 650 mg PO Q4 PRN PRN Reason: Fever >100.4 F Calcium Acetate (Phoslo) 667 mg PO TIDCC [facility] Last Admin: 10/30/16 17:26 Dose: 667 mg Carvedilol (Coreg) 25 mg PO BID [facility] Last Admin: 10/30/16 17:25 Dose: 25 mg Clonidine HCl (Catapres-Tts3 0.3 Mg/24 Hr) 1 patch TD Q7D@1000 [facility] Last Admin: 10/27/16 15:55 Dose: 1 patch Diphenhydramine HCl (Benadryl) 25 mg PO Q8 PRN PRN Reason: Itching / Pruritus Last Admin: 10/29/16 21:26 Dose: 25 mg Epoetin Cornelius (Procrit) 8,000 unit IV MWF [facility] Last Admin: 10/30/16 10:09 Dose: 8,000 unit Gabapentin (Neurontin) 100 mg PO TID [facility] Last Admin: 10/30/16 17:25 Dose: 100 mg Hydralazine HCl (Apresoline) 100 mg PO Q8 [facility] Last Admin: 10/30/16 21:19 Dose: 100 mg Hydromorphone HCl (Dilaudid) 1 mg IVP Q3H PRN PRN Reason: Pain, moderate (4-7) Last Admin: 10/30/16 20:34 Dose: 1 mg Vancomycin HCl 500 mg/ Sodium (Chloride) 100 mls @ 100 mls/hr IVPB MWF [facility] Last Admin: 10/30/16 13:07 Dose: 100 mls/hr Cefepime HCl (Maxipime Iv 1 Gm Premix) 1 gm in 50 mls @ 100 mls/hr IVPB Q24H [facility] Last Admin: 10/30/16 17:00 Dose: 100 mls/hr Insulin Aspart (Novolog) 0 unit SC ACHS [facility] PRN Reason: Protocol Last Admin: 10/30/16 22:04 Dose: Not Given Lidocaine (Lidoderm) 1 ea TD DAILY [facility] Last Admin: 10/30/16 15:06 Dose: 1 ea Metoclopramide HCl (Reglan) 5 mg PO 0600,1130,1630,2200 [facility] Last Admin: 10/30/16 22:05 Dose: 5 mg Nifedipine (Procardia Xl) 90 mg PO DAILY [facility] Last Admin: 10/30/16 13:10 Dose: 90 mg Pantoprazole Sodium (Protonix Ec Tab) 40 mg PO DAILY [facility] Last Admin: 10/30/16 13:06 Dose: 40 mg Rosuvastatin Calcium (Crestor) 2.5 mg PO HS [facility] Last Admin: 10/30/16 21:19 Dose: 2.5 mg Timolol Maleate (Timoptic 0.25% Oph Soln) 1 drop OD BID [facility] Last Admin: 10/30/16 17:29 Dose: 1 drop - Labs Labs: PT 12.6 SECONDS (9.7-12.2) H 10/26/16 23:07 INR 1.1 10/26/16 23:07 APTT 36 SECONDS (21-34) H 10/26/16 23:07 Attending/Attestation - Attestation I have personally seen and examined this patient.: Yes I have fully participated in the care of the patient.: Yes I have reviewed all pertinent clinical information, including history, physical exam and plan: Yes Notes (Text): 10/30/16 22:10 Pt was seen and examined at bedside on 10/29/16 Agree with above note and assessment Pt with Left breast pain and Mastitis Change IV antibiotics to Zosyn and Vancomycin Plan d.w pt in detail Risk and benefit explained in detail.
[2016-10-29] MEDS: (Novolog) Insulin Aspart, Recombinant 100 u/ml 10 ml vial SC SCH ×4 (08:30→21:29)
[2016-10-29] MEDS: Timolol 0.25% Ophth SOLN OD SCH ×2 (10:44→18:12)
[2016-10-29] MEDS: NIFEdipine 90 mg ER Tab PO SCH (10:44)
[2016-10-29] MEDS: Pantoprazole 40 mg EC Tab PO SCH (10:44)
[2016-10-29] MEDS: Lidocaine 5% Patch TD SCH (10:45)
--- NOTE | 2016-10-29 14:59 | CP.PCM.PN ---
Subjective - Date & Time of Evaluation Date of Evaluation: 10/29/16 Time of Evaluation: 08:00 - Subjective Subjective: ANTIBIOTICS IN PROGRESS WILL NEED SURGICAL FOLLOW UP CONT WOUND CARE Objective - Vital Signs/Intake and Output Vital Signs (last 24 hours): Temp Pulse Resp BP Pulse Ox 98.3 F 78 20 133/79 97 10/29/16 09:33 10/29/16 09:33 10/29/16 09:33 10/29/16 10:46 10/29/16 09:33 Intake and Output: 10/29/16 10/29/16 06:59 18:59 Intake Total 470 240 Balance 470 240 - Medications Medications: Current Medications Acetaminophen (Tylenol 325mg Tab) 650 mg PO Q4 PRN PRN Reason: Fever >100.4 F Calcium Acetate (Phoslo) 667 mg PO TIDCC [facility] Last Admin: 10/29/16 12:58 Dose: 667 mg Carvedilol (Coreg) 25 mg PO BID [facility] Last Admin: 10/29/16 10:46 Dose: 25 mg Clonidine HCl (Catapres-Tts3 0.3 Mg/24 Hr) 1 patch TD Q7D@1000 [facility] Last Admin: 10/27/16 15:55 Dose: 1 patch Diphenhydramine HCl (Benadryl) 25 mg PO Q8 PRN PRN Reason: Itching / Pruritus Last Admin: 10/28/16 22:24 Dose: 25 mg Epoetin Cornelius (Procrit) 8,000 unit IV [facility] Last Admin: 10/27/16 13:12 Dose: 8,000 unit Gabapentin (Neurontin) 100 mg PO TID [facility] Last Admin: 10/29/16 13:00 Dose: 100 mg Heparin Sodium (Porcine) (Heparin) 5,000 units SC Q8 [facility] Last Admin: 10/29/16 13:01 Dose: 5,000 units Hydralazine HCl (Apresoline) 100 mg PO Q8 [facility] Last Admin: 10/29/16 13:00 Dose: 100 mg Hydromorphone HCl (Dilaudid) 1 mg IVP Q3H PRN PRN Reason: Pain, moderate (4-7) Last Admin: 10/29/16 10:57 Dose: 1 mg Vancomycin HCl 500 mg/ Sodium (Chloride) 100 mls @ 100 mls/hr IVPB [facility] Cefepime HCl (Maxipime Iv 1 Gm Premix) 1 gm in 50 mls @ 100 mls/hr IVPB Q24H [facility] Last Admin: 10/28/16 17:59 Dose: 100 mls/hr Insulin Aspart (Novolog) 0 unit SC ACHS [facility] PRN Reason: Protocol Last Admin: 10/29/16 12:59 Dose: Not Given Lidocaine (Lidoderm) 1 ea TD DAILY [facility] Last Admin: 10/29/16 10:45 Dose: 1 ea Metoclopramide HCl (Reglan) 5 mg PO 0600,1130,1630,2200 [facility] Last Admin: 10/29/16 10:44 Dose: 5 mg Nifedipine (Procardia Xl) 90 mg PO DAILY [facility] Last Admin: 10/29/16 10:44 Dose: 90 mg Pantoprazole Sodium (Protonix Ec Tab) 40 mg PO DAILY [facility] Last Admin: 10/29/16 10:44 Dose: 40 mg Rosuvastatin Calcium (Crestor) 2.5 mg PO HS [facility] Last Admin: 10/28/16 22:25 Dose: 2.5 mg Timolol Maleate (Timoptic 0.25% Ophth Soln) 1 drop OD BID [facility] Last Admin: 10/29/16 10:44 Dose: 1 drop - Labs Labs: PT 12.6 SECONDS (9.7-12.2) H 10/26/16 23:07 INR 1.1 10/26/16 23:07 APTT 36 SECONDS (21-34) H 10/26/16 23:07 - Constitutional Appears: Non-toxic, Chronically Ill - Head Exam Head Exam: NORMOCEPHALIC - Eye Exam Eye Exam: PERRL. absent: Scleral icterus - ENT Exam ENT Exam: Mucous Membranes Dry - Neck Exam Neck Exam: absent: Lymphadenopathy - Respiratory Exam Respiratory Exam: Decreased Breath Sounds, Clear to Ausculation Bilateral - Cardiovascular Exam Cardiovascular Exam: REGULAR RHYTHM, +S1, +S2 - GI/Abdominal Exam GI & Abdominal Exam: Distended, Soft. absent: Tenderness - Rectal Exam Rectal Exam: Deferred - Exam Exam: NORMAL INSPECTION - Extremities Exam Extremities Exam: Pedal Edema, Tenderness - Back Exam Back Exam: absent: CVA tenderness (L), CVA tenderness (R) - Neurological Exam Neurological Exam: Alert, Awake, Oriented x3 Assessment and Plan (1) Mastitis of left breast unrelated to or Status: Acute (2) DM2 (diabetes mellitus, type 2) Status: Chronic (3) ESRD (end stage renal disease) on dialysis Status: Chronic (4) Abdominal pain in female patient Status: Acute (5) Abdominal pain with vomiting Status: Acute - Assessment and Plan (Free Text) Plan: WILL NEED FOLLOW UP IMAGING AND BREAST EXAM CONT IV RX
[2016-10-29] MEDS: Cefepime IV 1 gm in Dextrose 1 GM/50 ML BAG IVPB SCH (18:00)
[2016-10-29] MEDS: Rosuvastatin Calcium 2.5 mg Tab PO SCH (23:37)
[2016-10-30] MEDS: HYDROmorphone 1 mg/ml ISec IVP PRN ×6 (00:49→20:34)
--- NOTE | 2016-10-30 07:36 | CP.PCM.PN ---
<Isaac Wolf - Last Filed: 10/30/16 07:31> Subjective - Date & Time of Evaluation Date of Evaluation: 10/30/16 Time of Evaluation: 07:31 - Subjective Subjective: Surgery: Dr. Valdez Pt seen and examined. Pain remains unchanged. Pt continues to have night sweats and nausea. Objective - Vital Signs/Intake and Output Vital Signs (last 24 hours): Temp Pulse Resp BP Pulse Ox 97.6 F 75 20 133/79 98 10/29/16 23:15 10/29/16 23:15 10/29/16 23:15 10/29/16 23:15 10/29/16 23:15 Intake and Output: 10/30/16 10/30/16 06:59 18:59 Intake Total 590 Balance 590 - Medications Medications: Current Medications Acetaminophen (Tylenol 325mg Tab) 650 mg PO Q4 PRN PRN Reason: Fever >100.4 F Calcium Acetate (Phoslo) 667 mg PO TIDCC [facility] Last Admin: 10/29/16 18:00 Dose: 667 mg Carvedilol (Coreg) 25 mg PO BID [facility] Last Admin: 10/29/16 18:13 Dose: 25 mg Clonidine HCl (Catapres-Tts3 0.3 Mg/24 Hr) 1 patch TD Q7D@1000 [facility] Last Admin: 10/27/16 15:55 Dose: 1 patch Diphenhydramine HCl (Benadryl) 25 mg PO Q8 PRN PRN Reason: Itching / Pruritus Last Admin: 10/29/16 21:26 Dose: 25 mg Epoetin Cornelius (Procrit) 8,000 unit IV [facility] [place] Last Admin: 10/27/16 13:12 Dose: 8,000 unit Gabapentin (Neurontin) 100 mg PO TID [facility] Last Admin: 10/29/16 18:13 Dose: 100 mg Hydralazine HCl (Apresoline) 100 mg PO Q8 [facility] Last Admin: 10/30/16 05:27 Dose: 100 mg Hydromorphone HCl (Dilaudid) 1 mg IVP Q3H PRN PRN Reason: Pain, moderate (4-7) Last Admin: 10/30/16 06:54 Dose: 1 mg Vancomycin HCl 500 mg/ Sodium (Chloride) 100 mls @ 100 mls/hr IVPB [facility] [place] Cefepime HCl (Maxipime Iv 1 Gm Premix) 1 gm in 50 mls @ 100 mls/hr IVPB Q24H [facility] Last Admin: 10/29/16 18:00 Dose: 100 mls/hr Insulin Aspart (Novolog) 0 unit SC ACHS [facility] PRN Reason: Protocol Last Admin: 10/29/16 21:29 Dose: Not Given Lidocaine (Lidoderm) 1 ea TD DAILY [facility] Last Admin: 10/29/16 10:45 Dose: 1 ea Metoclopramide HCl (Reglan) 5 mg PO 0600,1130,1630,2200 [facility] Last Admin: 10/30/16 05:27 Dose: 5 mg Nifedipine (Procardia Xl) 90 mg PO DAILY [facility] Last Admin: 10/29/16 10:44 Dose: 90 mg Pantoprazole Sodium (Protonix Ec Tab) 40 mg PO DAILY [facility] Last Admin: 10/29/16 10:44 Dose: 40 mg Rosuvastatin Calcium (Crestor) 2.5 mg PO HS [facility] Last Admin: 10/29/16 23:37 Dose: 2.5 mg Timolol Maleate (Timoptic 0.25% Ophth Soln) 1 drop OD BID [facility] Last Admin: 10/29/16 18:12 Dose: 1 drop - Labs Labs: PT 12.6 SECONDS (9.7-12.2) H 10/26/16 23:07 INR 1.1 10/26/16 23:07 APTT 36 SECONDS (21-34) H 10/26/16 23:07 - Constitutional Appears: Non-toxic, Other (uncomfortable) - Eye Exam Eye Exam: EOMI - ENT Exam ENT Exam: Mucous Membranes Moist - Neck Exam Neck Exam: Full ROM - Respiratory Exam Respiratory Exam: NORMAL BREATHING PATTERN. absent: Accessory Muscle Use, Respiratory Distress - GI/Abdominal Exam GI & Abdominal Exam: Soft. absent: Tenderness - Neurological Exam Neurological Exam: Alert, Awake, Oriented x3 - Skin Additional comments: L breast: Diffusely tender, questionable area of fluctuance on inferior aspect Assessment and Plan - Assessment and Plan (Free Text) Assessment: 41F w. breast mastitis -For mammogram today, f/u results -questionable area of fluctuance on L breast, consider repeating U/S based on mammogram findings -c/w abx -c/w warm compresses -d/w attending Maryann PGY2 <Rajinder Valdez - Last Filed: 10/30/16 22:15> Objective - Vital Signs/Intake and Output Vital Signs (last 24 hours): Temp Pulse Resp BP Pulse Ox 98.1 F 85 18 136/60 97 10/30/16 16:00 10/30/16 16:00 10/30/16 16:00 10/30/16 17:25 10/30/16 16:00 Intake and Output: 10/30/16 10/31/16 18:59 06:59 Intake Total 580 Balance 580 - Medications Medications: Current Medications Acetaminophen (Tylenol 325mg Tab) 650 mg PO Q4 PRN PRN Reason: Fever >100.4 F Calcium Acetate (Phoslo) 667 mg PO TIDCC [facility] Last Admin: 10/30/16 17:26 Dose: 667 mg Carvedilol (Coreg) 25 mg PO BID [facility] Last Admin: 10/30/16 17:25 Dose: 25 mg Clonidine HCl (Catapres-Tts3 0.3 Mg/24 Hr) 1 patch TD Q7D@1000 [facility] Last Admin: 10/27/16 15:55 Dose: 1 patch Diphenhydramine HCl (Benadryl) 25 mg PO Q8 PRN PRN Reason: Itching / Pruritus Last Admin: 10/29/16 21:26 Dose: 25 mg Epoetin Cornelius (Procrit) 8,000 unit IV MWF [facility] Last Admin: 10/30/16 10:09 Dose: 8,000 unit Gabapentin (Neurontin) 100 mg PO TID [facility] Last Admin: 10/30/16 17:25 Dose: 100 mg Hydralazine HCl (Apresoline) 100 mg PO Q8 [facility] Last Admin: 10/30/16 21:19 Dose: 100 mg Hydromorphone HCl (Dilaudid) 1 mg IVP Q3H PRN PRN Reason: Pain, moderate (4-7) Last Admin: 10/30/16 20:34 Dose: 1 mg Vancomycin HCl 500 mg/ Sodium (Chloride) 100 mls @ 100 mls/hr IVPB MWF [facility] Last Admin: 10/30/16 13:07 Dose: 100 mls/hr Cefepime HCl (Maxipime Iv 1 Gm Premix) 1 gm in 50 mls @ 100 mls/hr IVPB Q24H [facility] Last Admin: 10/30/16 17:00 Dose: 100 mls/hr Insulin Aspart (Novolog) 0 unit SC ACHS [facility] PRN Reason: Protocol Last Admin: 10/30/16 22:04 Dose: Not Given Lidocaine (Lidoderm) 1 ea TD DAILY [facility] Last Admin: 10/30/16 15:06 Dose: 1 ea Metoclopramide HCl (Reglan) 5 mg PO 0600,1130,1630,2200 [facility] Last Admin: 10/30/16 22:05 Dose: 5 mg Nifedipine (Procardia Xl) 90 mg PO DAILY [facility] Last Admin: 10/30/16 13:10 Dose: 90 mg Pantoprazole Sodium (Protonix Ec Tab) 40 mg PO DAILY [facility] Last Admin: 10/30/16 13:06 Dose: 40 mg Rosuvastatin Calcium (Crestor) 2.5 mg PO HS [facility] Last Admin: 10/30/16 21:19 Dose: 2.5 mg Timolol Maleate (Timoptic 0.25% [facility] Soln) 1 drop OD BID [facility] Last Admin: 10/30/16 17:29 Dose: 1 drop - Labs Labs: PT 12.6 SECONDS (9.7-12.2) H 10/26/16 23:07 INR 1.1 10/26/16 23:07 APTT 36 SECONDS (21-34) H 10/26/16 23:07 Attending/Attestation - Attestation I have personally seen and examined this patient.: Yes I have fully participated in the care of the patient.: Yes I have reviewed all pertinent clinical information, including history, physical exam and plan: Yes Notes (Text): 10/30/16 22:14 Pt was seen and examined at bedside on 10/30/16 Agree with above note and assessment Pt with Left breast Mastitis Repeat US and Mammogram C/w IV antibiotics Plan d.w pt in detail
[2016-10-30] MEDS: (Novolog) Insulin Aspart, Recombinant 100 u/ml 10 ml vial SC SCH ×4 (08:06→22:04)
[2016-10-30] MEDS: EPOETIN ALFA 4,000 UNIT/ML ML Dialysis IV SCH (10:09)
--- NOTE | 2016-10-30 11:02 | CP.PCM.PN ---
Subjective - Date & Time of Evaluation Date of Evaluation: 10/30/16 Time of Evaluation: 10:00 - Subjective Subjective: Currently on dialysis No respiratory distress Objective - Vital Signs/Intake and Output Vital Signs (last 24 hours): Temp Pulse Resp BP Pulse Ox 97.9 F 75 16 149/50 L 97 10/30/16 08:50 10/30/16 08:50 10/30/16 08:50 10/30/16 10:50 10/30/16 08:50 Intake and Output: 10/30/16 10/30/16 06:59 18:59 Intake Total 590 Balance 590 - Medications Medications: Current Medications Acetaminophen (Tylenol 325mg Tab) 650 mg PO Q4 PRN PRN Reason: Fever >100.4 F Calcium Acetate (Phoslo) 667 mg PO TIDCC [facility] Last Admin: 10/30/16 08:05 Dose: 667 mg Carvedilol (Coreg) 25 mg PO BID [facility] Last Admin: 10/29/16 18:13 Dose: 25 mg Clonidine HCl (Catapres-Tts3 0.3 Mg/24 Hr) 1 patch TD Q7D@1000 [facility] Last Admin: 10/27/16 15:55 Dose: 1 patch Diphenhydramine HCl (Benadryl) 25 mg PO Q8 PRN PRN Reason: Itching / Pruritus Last Admin: 10/29/16 21:26 Dose: 25 mg Epoetin Cornelius (Procrit) 8,000 unit IV [facility] Last Admin: 10/30/16 10:09 Dose: 8,000 unit Gabapentin (Neurontin) 100 mg PO TID [facility] Last Admin: 10/29/16 18:13 Dose: 100 mg Hydralazine HCl (Apresoline) 100 mg PO Q8 [facility] Last Admin: 10/30/16 05:27 Dose: 100 mg Hydromorphone HCl (Dilaudid) 1 mg IVP Q3H PRN PRN Reason: Pain, moderate (4-7) Last Admin: 10/30/16 06:54 Dose: 1 mg Vancomycin HCl 500 mg/ Sodium (Chloride) 100 mls @ 100 mls/hr IVPB [facility] Cefepime HCl (Maxipime Iv 1 Gm Premix) 1 gm in 50 mls @ 100 mls/hr IVPB Q24H [facility] Last Admin: 10/29/16 18:00 Dose: 100 mls/hr Insulin Aspart (Novolog) 0 unit SC ACHS [facility] PRN Reason: Protocol Last Admin: 10/30/16 08:06 Dose: Not Given Lidocaine (Lidoderm) 1 ea TD DAILY [facility] Last Admin: 10/29/16 10:45 Dose: 1 ea Metoclopramide HCl (Reglan) 5 mg PO 0600,1130,1630,2200 [facility] Last Admin: 10/30/16 05:27 Dose: 5 mg Nifedipine (Procardia Xl) 90 mg PO DAILY [facility] Last Admin: 10/29/16 10:44 Dose: 90 mg Pantoprazole Sodium (Protonix Ec Tab) 40 mg PO DAILY [facility] Last Admin: 10/29/16 10:44 Dose: 40 mg Rosuvastatin Calcium (Crestor) 2.5 mg PO HS [facility] Last Admin: 10/29/16 23:37 Dose: 2.5 mg Timolol Maleate (Timoptic 0.25% Ophth Soln) 1 drop OD BID [facility] Last Admin: 10/29/16 18:12 Dose: 1 drop - Labs Labs: PT 12.6 SECONDS (9.7-12.2) H 10/26/16 23:07 INR 1.1 10/26/16 23:07 APTT 36 SECONDS (21-34) H 10/26/16 23:07 - Respiratory Exam Additional comments: Lungs clear - Cardiovascular Exam Cardiovascular Exam: REGULAR RHYTHM - Extremities Exam Additional comments: No edema Assessment and Plan - Assessment and Plan (Free Text) Assessment: ESRD on HD HTN Rt heel OM IDDM Lt breast edema Plan: Continue current Mx. Breast US report noted. Scheduled for Mammogram Cont. HD MWF
[2016-10-30] MEDS: Pantoprazole 40 mg EC Tab PO SCH (13:06)
[2016-10-30] MEDS: Timolol 0.25% Ophth SOLN OD SCH ×2 (13:09→17:29)
[2016-10-30] MEDS: NIFEdipine 90 mg ER Tab PO SCH (13:10)
[2016-10-30] MEDS: Lidocaine 5% Patch TD SCH (15:06)
--- NOTE | 2016-10-30 16:19 | CP.PCM.PN ---
Subjective - Date & Time of Evaluation Date of Evaluation: 10/30/16 Time of Evaluation: 12:50 - Subjective Subjective: Patient seen bedside regarding left heel ulcer. She is seen resting in bed in [facility]. Admits mild sharp pain to left heel. Denies any other LE complications. Admits to fevers at night for the past 3 nights. Denies C/N/V/SOB. She is seen in bed without offloading boots. Objective - Vital Signs/Intake and Output Vital Signs (last 24 hours): Temp Pulse Resp BP Pulse Ox 98.5 F 85 18 125/57 L 97 10/30/16 13:01 10/30/16 14:03 10/30/16 13:01 10/30/16 14:03 10/30/16 13:01 Intake and Output: 10/30/16 10/30/16 06:59 18:59 Intake Total 590 580 Balance 590 580 - Medications Medications: Current Medications Acetaminophen (Tylenol 325mg Tab) 650 mg PO Q4 PRN PRN Reason: Fever >100.4 F Calcium Acetate (Phoslo) 667 mg PO TIDCC [facility] Last Admin: 10/30/16 13:06 Dose: 667 mg Carvedilol (Coreg) 25 mg PO BID [facility] Last Admin: 10/30/16 11:00 Dose: Not Given Clonidine HCl (Catapres-Tts3 0.3 Mg/24 Hr) 1 patch TD Q7D@1000 [facility] Last Admin: 10/27/16 15:55 Dose: 1 patch Diphenhydramine HCl (Benadryl) 25 mg PO Q8 PRN PRN Reason: Itching / Pruritus Last Admin: 10/29/16 21:26 Dose: 25 mg Epoetin Cornelius (Procrit) 8,000 unit IV MWF [facility] Last Admin: 10/30/16 10:09 Dose: 8,000 unit Gabapentin (Neurontin) 100 mg PO TID [facility] Last Admin: 10/30/16 14:15 Dose: 100 mg Hydralazine HCl (Apresoline) 100 mg PO Q8 [facility] Last Admin: 10/30/16 14:15 Dose: 100 mg Hydromorphone HCl (Dilaudid) 1 mg IVP Q3H PRN PRN Reason: Pain, moderate (4-7) Last Admin: 10/30/16 13:04 Dose: 1 mg Vancomycin HCl 500 mg/ Sodium (Chloride) 100 mls @ 100 mls/hr IVPB MWF [facility] Last Admin: 10/30/16 13:07 Dose: 100 mls/hr Cefepime HCl (Maxipime Iv 1 Gm Premix) 1 gm in 50 mls @ 100 mls/hr IVPB Q24H [facility] Last Admin: 10/29/16 18:00 Dose: 100 mls/hr Insulin Aspart (Novolog) 0 unit SC ACHS [facility] PRN Reason: Protocol Last Admin: 10/30/16 13:03 Dose: Not Given Lidocaine (Lidoderm) 1 ea TD DAILY [facility] Last Admin: 10/30/16 15:06 Dose: 1 ea Metoclopramide HCl (Reglan) 5 mg PO 0600,1130,1630,2200 [facility] Last Admin: 10/30/16 13:10 Dose: 5 mg Nifedipine (Procardia Xl) 90 mg PO DAILY [facility] Last Admin: 10/30/16 13:10 Dose: 90 mg Pantoprazole Sodium (Protonix Ec Tab) 40 mg PO DAILY [facility] Last Admin: 10/30/16 13:06 Dose: 40 mg Rosuvastatin Calcium (Crestor) 2.5 mg PO HS [facility] Last Admin: 10/29/16 23:37 Dose: 2.5 mg Timolol Maleate (Timoptic 0.25% Ophth Soln) 1 drop OD BID [facility] Last Admin: 10/30/16 13:09 Dose: 1 drop - Labs Labs: PT 12.6 SECONDS (9.7-12.2) H 10/26/16 23:07 INR 1.1 10/26/16 23:07 APTT 36 SECONDS (21-34) H 10/26/16 23:07 - Constitutional Appears: No Acute Distress - Extremities Exam Additional comments: Left lower extremity focused exam: Vasc: DP/PT pulses 2/4, 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 Serous drainage present. Negative malodor. Neuro: Protective sensation decreased MSK: Pain on palpation to the left heel. 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 Bran Labs, chart and vitals were reviewed All questions and concerns were addressed Left foot dressing was changed with Xeroform, and DSD Ordered prevalon boots for bilaterally foot, patient to wear while in bed Podiatry will continue to follow patient while in house
[2016-10-30] MEDS: Cefepime IV 1 gm in Dextrose 1 GM/50 ML BAG IVPB SCH (17:00)
[2016-10-30] MEDS: Rosuvastatin Calcium 2.5 mg Tab PO SCH (21:19)
--- NOTE | 2016-10-30 22:51 | CP.PCM.PN ---
Subjective - Date & Time of Evaluation Date of Evaluation: 10/29/16 Time of Evaluation: 21:00 - Subjective Subjective: seen & examined, continues to c/o left breast pain, she is for diagnostic mammogram, afebrile, no shortness of breath Objective - Vital Signs/Intake and Output Vital Signs (last 24 hours): Temp Pulse Resp BP Pulse Ox 98.1 F 85 18 136/60 97 10/30/16 16:00 10/30/16 16:00 10/30/16 16:00 10/30/16 17:25 10/30/16 16:00 Intake and Output: 10/30/16 10/31/16 18:59 06:59 Intake Total 580 Balance 580 - Medications Medications: Current Medications Acetaminophen (Tylenol 325mg Tab) 650 mg PO Q4 PRN PRN Reason: Fever >100.4 F Calcium Acetate (Phoslo) 667 mg PO TIDCC [facility] Last Admin: 10/30/16 17:26 Dose: 667 mg Carvedilol (Coreg) 25 mg PO BID [facility] Last Admin: 10/30/16 17:25 Dose: 25 mg Clonidine HCl (Catapres-Tts3 0.3 Mg/24 Hr) 1 patch TD Q7D@1000 [facility] Last Admin: 10/27/16 15:55 Dose: 1 patch Diphenhydramine HCl (Benadryl) 25 mg PO Q8 PRN PRN Reason: Itching / Pruritus Last Admin: 10/29/16 21:26 Dose: 25 mg Epoetin Cornelius (Procrit) 8,000 unit IV MWF [facility] Last Admin: 10/30/16 10:09 Dose: 8,000 unit Gabapentin (Neurontin) 100 mg PO TID [facility] Last Admin: 10/30/16 17:25 Dose: 100 mg Hydralazine HCl (Apresoline) 100 mg PO Q8 [facility] Last Admin: 10/30/16 21:19 Dose: 100 mg Hydromorphone HCl (Dilaudid) 1 mg IVP Q3H PRN PRN Reason: Pain, moderate (4-7) Last Admin: 10/30/16 20:34 Dose: 1 mg Vancomycin HCl 500 mg/ Sodium (Chloride) 100 mls @ 100 mls/hr IVPB MWF [facility] Last Admin: 10/30/16 13:07 Dose: 100 mls/hr Cefepime HCl (Maxipime Iv 1 Gm Premix) 1 gm in 50 mls @ 100 mls/hr IVPB Q24H [facility] Last Admin: 10/30/16 17:00 Dose: 100 mls/hr Insulin Aspart (Novolog) 0 unit SC ACHS [facility] PRN Reason: Protocol Last Admin: 10/30/16 22:04 Dose: Not Given Lidocaine (Lidoderm) 1 ea TD DAILY [facility] Last Admin: 10/30/16 15:06 Dose: 1 ea Metoclopramide HCl (Reglan) 5 mg PO 0600,1130,1630,2200 [facility] Last Admin: 10/30/16 22:05 Dose: 5 mg Nifedipine (Procardia Xl) 90 mg PO DAILY [facility] Last Admin: 10/30/16 13:10 Dose: 90 mg Pantoprazole Sodium (Protonix Ec Tab) 40 mg PO DAILY [facility] Last Admin: 10/30/16 13:06 Dose: 40 mg Rosuvastatin Calcium (Crestor) 2.5 mg PO HS [facility] Last Admin: 10/30/16 21:19 Dose: 2.5 mg Timolol Maleate (Timoptic 0.25% Oph Soln) 1 drop OD BID [facility] Last Admin: 10/30/16 17:29 Dose: 1 drop - Labs Labs: PT 12.6 SECONDS (9.7-12.2) H 10/26/16 23:07 INR 1.1 10/26/16 23:07 APTT 36 SECONDS (21-34) H 10/26/16 23:07 - Constitutional Appears: No Acute Distress - Head Exam Head Exam: ATRAUMATIC, NORMAL INSPECTION, NORMOCEPHALIC - Eye Exam Eye Exam: EOMI, Normal appearance, PERRL Pupil Exam: NORMAL ACCOMODATION, PERRL - Respiratory Exam Respiratory Exam: Clear to Ausculation Bilateral, NORMAL BREATHING PATTERN - Cardiovascular Exam Cardiovascular Exam: REGULAR RHYTHM, +S1, +S2. absent: Murmur - GI/Abdominal Exam GI & Abdominal Exam: Soft, Normal Bowel Sounds. absent: Tenderness - Psychiatric Exam Psychiatric exam: Normal Affect, Normal Mood - Skin Skin Exam: Dry, Normal Color, Warm Assessment and Plan (1) Ulcer of right heel Status: Acute (2) DM2 (diabetes mellitus, type 2) Status: Chronic (3) ESRD (end stage renal disease) on dialysis Status: Chronic (4) Hypertension Status: Chronic (5) Mastitis of left breast unrelated to or Assessment & Plan: can be hematoma versus edema surgical follow up Status: Acute
--- NOTE | 2016-10-30 22:53 | CP.PCM.PN ---
Subjective - Date & Time of Evaluation Date of Evaluation: 10/30/16 Time of Evaluation: 19:40 - Subjective Subjective: seen & examined, continues to c/o left breast pain, she is for diagnostic mammogram, afebrile, no shortness of breath Objective - Vital Signs/Intake and Output Vital Signs (last 24 hours): Temp Pulse Resp BP Pulse Ox 98.1 F 85 18 136/60 97 10/30/16 16:00 10/30/16 16:00 10/30/16 16:00 10/30/16 17:25 10/30/16 16:00 Intake and Output: 10/30/16 10/31/16 18:59 06:59 Intake Total 580 Balance 580 - Medications Medications: Current Medications Acetaminophen (Tylenol 325mg Tab) 650 mg PO Q4 PRN PRN Reason: Fever >100.4 F Calcium Acetate (Phoslo) 667 mg PO TIDCC [facility] Last Admin: 10/30/16 17:26 Dose: 667 mg Carvedilol (Coreg) 25 mg PO BID [facility] Last Admin: 10/30/16 17:25 Dose: 25 mg Clonidine HCl (Catapres-Tts3 0.3 Mg/24 Hr) 1 patch TD Q7D@1000 [facility] Last Admin: 10/27/16 15:55 Dose: 1 patch Diphenhydramine HCl (Benadryl) 25 mg PO Q8 PRN PRN Reason: Itching / Pruritus Last Admin: 10/29/16 21:26 Dose: 25 mg Epoetin Cornelius (Procrit) 8,000 unit IV MWF [facility] Last Admin: 10/30/16 10:09 Dose: 8,000 unit Gabapentin (Neurontin) 100 mg PO TID [facility] Last Admin: 10/30/16 17:25 Dose: 100 mg Hydralazine HCl (Apresoline) 100 mg PO Q8 [facility] Last Admin: 10/30/16 21:19 Dose: 100 mg Hydromorphone HCl (Dilaudid) 1 mg IVP Q3H PRN PRN Reason: Pain, moderate (4-7) Last Admin: 10/30/16 20:34 Dose: 1 mg Vancomycin HCl 500 mg/ Sodium (Chloride) 100 mls @ 100 mls/hr IVPB MWF [facility] Last Admin: 10/30/16 13:07 Dose: 100 mls/hr Cefepime HCl (Maxipime Iv 1 Gm Premix) 1 gm in 50 mls @ 100 mls/hr IVPB Q24H [facility] Last Admin: 10/30/16 17:00 Dose: 100 mls/hr Insulin Aspart (Novolog) 0 unit SC ACHS [facility] PRN Reason: Protocol Last Admin: 10/30/16 22:04 Dose: Not Given Lidocaine (Lidoderm) 1 ea TD DAILY [facility] Last Admin: 10/30/16 15:06 Dose: 1 ea Metoclopramide HCl (Reglan) 5 mg PO 0600,1130,1630,2200 [facility] Last Admin: 10/30/16 22:05 Dose: 5 mg Nifedipine (Procardia Xl) 90 mg PO DAILY [facility] Last Admin: 10/30/16 13:10 Dose: 90 mg Pantoprazole Sodium (Protonix Ec Tab) 40 mg PO DAILY [facility] Last Admin: 10/30/16 13:06 Dose: 40 mg Rosuvastatin Calcium (Crestor) 2.5 mg PO HS [facility] Last Admin: 10/30/16 21:19 Dose: 2.5 mg Timolol Maleate (Timoptic 0.25% Oph Soln) 1 drop OD BID [facility] Last Admin: 10/30/16 17:29 Dose: 1 drop - Labs Labs: PT 12.6 SECONDS (9.7-12.2) H 10/26/16 23:07 INR 1.1 10/26/16 23:07 APTT 36 SECONDS (21-34) H 10/26/16 23:07 - Constitutional Appears: No Acute Distress - Head Exam Head Exam: ATRAUMATIC, NORMAL INSPECTION, NORMOCEPHALIC - Eye Exam Eye Exam: EOMI, Normal appearance, PERRL Pupil Exam: NORMAL ACCOMODATION, PERRL - ENT Exam ENT Exam: Mucous Membranes Moist, Normal Exam - Respiratory Exam Respiratory Exam: Clear to Ausculation Bilateral, NORMAL BREATHING PATTERN - Cardiovascular Exam Cardiovascular Exam: REGULAR RHYTHM, +S1, +S2. absent: Murmur - GI/Abdominal Exam GI & Abdominal Exam: Soft, Normal Bowel Sounds. absent: Tenderness - Extremities Exam Extremities Exam: Full ROM, Normal Capillary Refill, Normal Inspection. absent : Joint Swelling, Pedal Edema - Neurological Exam Neurological Exam: Alert, Awake, CN II-XII Intact, Normal Gait, Oriented x3 Assessment and Plan (1) Ulcer of right heel Status: Acute (2) DM2 (diabetes mellitus, type 2) Status: Chronic (3) ESRD (end stage renal disease) on dialysis Status: Chronic (4) Hypertension Status: Chronic (5) Mastitis of left breast unrelated to or Assessment & Plan: surgical follow up diagnostic mammogram pain medications Status: Acute
[2016-10-31] MEDS: HYDROmorphone 1 mg/ml ISec IVP PRN ×6 (03:09→17:40)
[2016-10-31 07:03] LABS: CALCIUM 8.6 mg/dl (8.6-10.4)
[2016-10-31 07:22] LABS: MEAN PLATELET VOLUME 8.1 fL (7.2-11.7); RBC 2.72 Mil/uL (3.80-5.20); RED CELL DISTRIBUTION WIDTH 23.2 % (11.5-14.5)
[2016-10-31] MEDS: (Novolog) Insulin Aspart, Recombinant 100 u/ml 10 ml vial SC SCH ×4 (08:02→21:57)
--- NOTE | 2016-10-31 08:30 | CP.PCM.PN ---
Subjective - Date & Time of Evaluation Date of Evaluation: 10/31/16 Time of Evaluation: 08:00 - Subjective Subjective: Pt seen & evaluated,continues to have intolerable left breast pain, she is for another breast U/S Objective - Vital Signs/Intake and Output Vital Signs (last 24 hours): Temp Pulse Resp BP Pulse Ox 98.7 F 87 18 122/62 97 10/31/16 07:25 10/31/16 07:25 10/31/16 07:25 10/31/16 07:25 10/31/16 07:25 Intake and Output: 10/31/16 10/31/16 06:59 18:59 Intake Total 200 Balance 200 - Medications Medications: Current Medications Acetaminophen (Tylenol 325mg Tab) 650 mg PO Q4 PRN PRN Reason: Fever >100.4 F Calcium Acetate (Phoslo) 667 mg PO TIDCC [facility] Last Admin: 10/31/16 08:24 Dose: 667 mg Carvedilol (Coreg) 25 mg PO BID [facility] Last Admin: 10/30/16 17:25 Dose: 25 mg Clonidine HCl (Catapres-Tts3 0.3 Mg/24 Hr) 1 patch TD Q7D@1000 [facility] Last Admin: 10/27/16 15:55 Dose: 1 patch Diphenhydramine HCl (Benadryl) 25 mg PO Q8 PRN PRN Reason: Itching / Pruritus Last Admin: 10/29/16 21:26 Dose: 25 mg Epoetin Cornelius (Procrit) 8,000 unit IV F [facility] Last Admin: 10/30/16 10:09 Dose: 8,000 unit Gabapentin (Neurontin) 100 mg PO TID [facility] Last Admin: 10/30/16 17:25 Dose: 100 mg Hydralazine HCl (Apresoline) 100 mg PO Q8 [facility] Last Admin: 10/31/16 05:55 Dose: 100 mg Hydromorphone HCl (Dilaudid) 1 mg IVP Q3H PRN PRN Reason: Pain, moderate (4-7) Last Admin: 10/31/16 06:00 Dose: 1 mg Vancomycin HCl 500 mg/ Sodium (Chloride) 100 mls @ 100 mls/hr IVPB MWF [facility] Last Admin: 10/30/16 13:07 Dose: 100 mls/hr Cefepime HCl (Maxipime Iv 1 Gm Premix) 1 gm in 50 mls @ 100 mls/hr IVPB Q24H [facility] Last Admin: 10/30/16 17:00 Dose: 100 mls/hr Insulin Aspart (Novolog) 0 unit SC ACHS [facility] PRN Reason: Protocol Last Admin: 10/31/16 08:02 Dose: Not Given Lidocaine (Lidoderm) 1 ea TD DAILY [facility] Last Admin: 10/30/16 15:06 Dose: 1 ea Metoclopramide HCl (Reglan) 5 mg PO 0600,1130,1630,2200 [facility] Last Admin: 10/31/16 05:55 Dose: 5 mg Nifedipine (Procardia Xl) 90 mg PO DAILY [facility] Last Admin: 10/30/16 13:10 Dose: 90 mg Pantoprazole Sodium (Protonix Ec Tab) 40 mg PO DAILY [facility] Last Admin: 10/30/16 13:06 Dose: 40 mg Rosuvastatin Calcium (Crestor) 2.5 mg PO HS [facility] Last Admin: 10/30/16 21:19 Dose: 2.5 mg Timolol Maleate (Timoptic 0.25% Ophth Soln) 1 drop OD BID [facility] Last Admin: 10/30/16 17:29 Dose: 1 drop - Labs Labs: 10/31/16 06:37 10/31/16 06:37 PT 12.6 SECONDS (9.7-12.2) H 10/26/16 23:07 INR 1.1 10/26/16 23:07 APTT 36 SECONDS (21-34) H 10/26/16 23:07 - Constitutional Appears: No Acute Distress - Head Exam Head Exam: ATRAUMATIC, NORMAL INSPECTION, NORMOCEPHALIC - Eye Exam Eye Exam: EOMI, Normal appearance, PERRL Pupil Exam: NORMAL ACCOMODATION, PERRL - ENT Exam ENT Exam: Mucous Membranes Moist, Normal Exam - Neck Exam Neck Exam: Full ROM, Normal Inspection. absent: Lymphadenopathy - Respiratory Exam Respiratory Exam: Clear to Ausculation Bilateral, NORMAL BREATHING PATTERN - Cardiovascular Exam Cardiovascular Exam: REGULAR RHYTHM, +S1, +S2. absent: Murmur - GI/Abdominal Exam GI & Abdominal Exam: Soft, Normal Bowel Sounds. absent: Tenderness Assessment and Plan (1) Ulcer of right heel Status: Acute (2) DM2 (diabetes mellitus, type 2) Status: Chronic (3) ESRD (end stage renal disease) on dialysis Status: Chronic (4) Hypertension Status: Chronic (5) Mastitis of left breast unrelated to or Assessment & Plan: mastalgia with left breast swelling pt is for another Ultrasound Status: Acute
[2016-10-31] MEDS: NIFEdipine 90 mg ER Tab PO SCH (09:23)
[2016-10-31] MEDS: Pantoprazole 40 mg EC Tab PO SCH (09:23)
[2016-10-31] MEDS: Timolol 0.25% Ophth SOLN OD SCH ×2 (09:24→17:39)
[2016-10-31] MEDS: Lidocaine 5% Patch TD SCH (09:25)
--- NOTE | 2016-10-31 11:47 | CP.PCM.PN ---
<Isaac Wolf - Last Filed: 10/31/16 11:44> Subjective - Date & Time of Evaluation Date of Evaluation: 10/31/16 Time of Evaluation: 11:44 - Subjective Subjective: Surgery: Dr. Valdez Pt seen and examined. Continues to have breast pain. Unable to have mammogram done. Needs to be done out patient Objective - Vital Signs/Intake and Output Vital Signs (last 24 hours): Temp Pulse Resp BP Pulse Ox 98.7 F 91 H 20 138/77 94 L 10/31/16 07:25 10/31/16 09:09 10/31/16 09:09 10/31/16 09:23 10/31/16 09:09 Intake and Output: 10/31/16 10/31/16 06:59 18:59 Intake Total 200 Balance 200 - Medications Medications: Current Medications Acetaminophen (Tylenol 325mg Tab) 650 mg PO Q4 PRN PRN Reason: Fever >100.4 F Calcium Acetate (Phoslo) 667 mg PO TIDCC [facility] Last Admin: 10/31/16 08:24 Dose: 667 mg Carvedilol (Coreg) 25 mg PO BID [facility] Last Admin: 10/31/16 09:23 Dose: 25 mg Clonidine HCl (Catapres-Tts3 0.3 Mg/24 Hr) 1 patch TD Q7D@1000 [facility] Last Admin: 10/27/16 15:55 Dose: 1 patch Diphenhydramine HCl (Benadryl) 25 mg PO Q8 PRN PRN Reason: Itching / Pruritus Last Admin: 10/29/16 21:26 Dose: 25 mg Epoetin Cornelius (Procrit) 8,000 unit IV [facility] Last Admin: 10/30/16 10:09 Dose: 8,000 unit Ferric Sodium Gluconate Complex (Ferrlecit) 125 mg IVPB [facility] Stop: 11/09/16 09:01 Gabapentin (Neurontin) 100 mg PO TID [facility] Last Admin: 10/31/16 09:23 Dose: 100 mg Hydralazine HCl (Apresoline) 100 mg PO Q8 [facility] Last Admin: 10/31/16 05:55 Dose: 100 mg Hydromorphone HCl (Dilaudid) 1 mg IVP Q3H PRN PRN Reason: Pain, moderate (4-7) Last Admin: 10/31/16 09:12 Dose: 1 mg Vancomycin HCl 500 mg/ Sodium (Chloride) 100 mls @ 100 mls/hr IVPB MWF [facility] Last Admin: 10/30/16 13:07 Dose: 100 mls/hr Cefepime HCl (Maxipime Iv 1 Gm Premix) 1 gm in 50 mls @ 100 mls/hr IVPB Q24H [facility] Last Admin: 10/30/16 17:00 Dose: 100 mls/hr Insulin Aspart (Novolog) 0 unit SC ACHS [facility] PRN Reason: Protocol Last Admin: 10/31/16 08:02 Dose: Not Given Lidocaine (Lidoderm) 1 ea TD DAILY [facility] Last Admin: 10/31/16 09:25 Dose: 1 ea Metoclopramide HCl (Reglan) 5 mg PO 0600,1130,1630,2200 [facility] Last Admin: 10/31/16 05:55 Dose: 5 mg Nifedipine (Procardia Xl) 90 mg PO DAILY [facility] Last Admin: 10/31/16 09:23 Dose: 90 mg Pantoprazole Sodium (Protonix Ec Tab) 40 mg PO DAILY [facility] Last Admin: 10/31/16 09:23 Dose: 40 mg Rosuvastatin Calcium (Crestor) 2.5 mg PO HS [facility] Last Admin: 10/30/16 21:19 Dose: 2.5 mg Timolol Maleate (Timoptic 0.25% Ophth Soln) 1 drop OD BID [facility] Last Admin: 10/31/16 09:24 Dose: 1 drop - Labs Labs: 10/31/16 06:37 10/31/16 06:37 PT 12.6 SECONDS (9.7-12.2) H 10/26/16 23:07 INR 1.1 10/26/16 23:07 APTT 36 SECONDS (21-34) H 10/26/16 23:07 - Constitutional Appears: Non-toxic, Other (uncomfortable) - Head Exam Head Exam: ATRAUMATIC, NORMOCEPHALIC - Eye Exam Eye Exam: EOMI - ENT Exam ENT Exam: Mucous Membranes Moist - Neck Exam Neck Exam: Full ROM - Respiratory Exam Respiratory Exam: NORMAL BREATHING PATTERN. absent: Accessory Muscle Use, Respiratory Distress - Neurological Exam Neurological Exam: Alert, Awake, Oriented x3 - Skin Additional comments: L Breast: Diffusely tender to palpation, most prominent on inferior aspect, questionable area of fluctuance Assessment and Plan - Assessment and Plan (Free Text) Assessment: 41F w. L breast mastitis -Unable to perform mammogram, needs to be done as outpatient -will repeat U/S for comparison -c/w abx -c/w warm compresses -d/w attending Maryann PGY2 <Rajinder Valdez - Last Filed: 11/01/16 09:39> Objective - Vital Signs/Intake and Output Vital Signs (last 24 hours): Temp Pulse Resp BP Pulse Ox 98 F 79 20 130/77 97 11/01/16 09:05 11/01/16 09:05 11/01/16 09:05 11/01/16 09:05 11/01/16 09:05 - Medications Medications: Current Medications Acetaminophen (Tylenol 325mg Tab) 650 mg PO Q4 PRN PRN Reason: Fever >100.4 F Calcium Acetate (Phoslo) 667 mg PO TIDCC [facility] Last Admin: 11/01/16 07:54 Dose: Not Given Carvedilol (Coreg) 25 mg PO BID [facility] Last Admin: 10/31/16 17:39 Dose: 25 mg Clonidine HCl (Catapres-Tts3 0.3 Mg/24 Hr) 1 patch TD Q7D@1000 [facility] Last Admin: 10/27/16 15:55 Dose: 1 patch Diphenhydramine HCl (Benadryl) 25 mg PO Q8 PRN PRN Reason: Itching / Pruritus Last Admin: 11/01/16 00:45 Dose: 25 mg Epoetin Cornelius (Procrit) 8,000 unit IV [facility] Last Admin: 10/30/16 10:09 Dose: 8,000 unit Ferric Sodium Gluconate Complex (Ferrlecit) 125 mg IVPB [facility] Stop: 11/09/16 09:01 Gabapentin (Neurontin) 100 mg PO TID [facility] Last Admin: 10/31/16 17:39 Dose: 100 mg Hydralazine HCl (Apresoline) 100 mg PO Q8 [facility] Last Admin: 11/01/16 05:21 Dose: 100 mg Hydromorphone HCl (Dilaudid) 1 mg IVP Q3H PRN PRN Reason: Pain, moderate (4-7) Last Admin: 11/01/16 06:00 Dose: 1 mg Vancomycin HCl 500 mg/ Sodium (Chloride) 100 mls @ 100 mls/hr IVPB MWF [facility] Last Admin: 10/30/16 13:07 Dose: 100 mls/hr Cefepime HCl (Maxipime Iv 1 Gm Premix) 1 gm in 50 mls @ 100 mls/hr IVPB Q24H [facility] Last Admin: 10/31/16 17:39 Dose: 100 mls/hr Insulin Aspart (Novolog) 0 unit SC ACHS [facility] PRN Reason: Protocol Last Admin: 11/01/16 07:52 Dose: Not Given Lidocaine (Lidoderm) 1 ea TD DAILY [facility] Last Admin: 10/31/16 09:25 Dose: 1 ea Metoclopramide HCl (Reglan) 5 mg PO 0600,1130,1630,2200 [facility] Last Admin: 11/01/16 05:24 Dose: 5 mg Nifedipine (Procardia Xl) 90 mg PO DAILY [facility] Last Admin: 10/31/16 09:23 Dose: 90 mg Pantoprazole Sodium (Protonix Ec Tab) 40 mg PO DAILY [facility] Last Admin: 10/31/16 09:23 Dose: 40 mg Rosuvastatin Calcium (Crestor) 2.5 mg PO HS [facility] Last Admin: 10/31/16 22:18 Dose: 2.5 mg Timolol Maleate (Timoptic 0.25% Oph Soln) 1 drop OD BID [facility] Last Admin: 10/31/16 17:39 Dose: 1 drop - Labs Labs: 10/31/16 06:37 10/31/16 06:37 PT 12.6 SECONDS (9.7-12.2) H 10/26/16 23:07 INR 1.1 10/26/16 23:07 APTT 36 SECONDS (21-34) H 10/26/16 23:07 Attending/Attestation - Attestation I have personally seen and examined this patient.: Yes I have fully participated in the care of the patient.: Yes I have reviewed all pertinent clinical information, including history, physical exam and plan: Yes Notes (Text): 11/01/16 09:32 Pt was seen and examined at bedside on 10/31/16 Agree with above note and assessment Pt with severe Left breast Mastitis possible Abscess C/w severe left breast pain Pt will need I & D of Left breast abscess Plan d.w pt in detail Risk and benefit explained in detail.
--- NOTE | 2016-10-31 11:48 | CP.PCM.PN ---
Subjective - Date & Time of Evaluation Date of Evaluation: 10/31/16 Time of Evaluation: 11:25 - Subjective Subjective: Sitting in chair & eating breakfast C/o soreness in Lt breast Objective - Vital Signs/Intake and Output Vital Signs (last 24 hours): Temp Pulse Resp BP Pulse Ox 98.7 F 91 H 20 138/77 94 L 10/31/16 07:25 10/31/16 09:09 10/31/16 09:09 10/31/16 09:23 10/31/16 09:09 Intake and Output: 10/31/16 10/31/16 06:59 18:59 Intake Total 200 Balance 200 - Medications Medications: Current Medications Acetaminophen (Tylenol 325mg Tab) 650 mg PO Q4 PRN PRN Reason: Fever >100.4 F Calcium Acetate (Phoslo) 667 mg PO TIDCC [facility] Last Admin: 10/31/16 08:24 Dose: 667 mg Carvedilol (Coreg) 25 mg PO BID [facility] Last Admin: 10/31/16 09:23 Dose: 25 mg Clonidine HCl (Catapres-Tts3 0.3 Mg/24 Hr) 1 patch TD Q7D@1000 [facility] Last Admin: 10/27/16 15:55 Dose: 1 patch Diphenhydramine HCl (Benadryl) 25 mg PO Q8 PRN PRN Reason: Itching / Pruritus Last Admin: 10/29/16 21:26 Dose: 25 mg Epoetin Cornelius (Procrit) 8,000 unit IV [facility] Last Admin: 10/30/16 10:09 Dose: 8,000 unit Ferric Sodium Gluconate Complex (Ferrlecit) 125 mg IVPB [facility] Stop: 11/09/16 09:01 Gabapentin (Neurontin) 100 mg PO TID [facility] Last Admin: 10/31/16 09:23 Dose: 100 mg Hydralazine HCl (Apresoline) 100 mg PO Q8 [facility] Last Admin: 10/31/16 05:55 Dose: 100 mg Hydromorphone HCl (Dilaudid) 1 mg IVP Q3H PRN PRN Reason: Pain, moderate (4-7) Last Admin: 10/31/16 09:12 Dose: 1 mg Vancomycin HCl 500 mg/ Sodium (Chloride) 100 mls @ 100 mls/hr IVPB [facility] Last Admin: 10/30/16 13:07 Dose: 100 mls/hr Cefepime HCl (Maxipime Iv 1 Gm Premix) 1 gm in 50 mls @ 100 mls/hr IVPB Q24H [facility] Last Admin: 10/30/16 17:00 Dose: 100 mls/hr Insulin Aspart (Novolog) 0 unit SC ACHS [facility] PRN Reason: Protocol Last Admin: 10/31/16 08:02 Dose: Not Given Lidocaine (Lidoderm) 1 ea TD DAILY [facility] Last Admin: 10/31/16 09:25 Dose: 1 ea Metoclopramide HCl (Reglan) 5 mg PO 0600,1130,1630,2200 [facility] Last Admin: 10/31/16 05:55 Dose: 5 mg Nifedipine (Procardia Xl) 90 mg PO DAILY [facility] Last Admin: 10/31/16 09:23 Dose: 90 mg Pantoprazole Sodium (Protonix Ec Tab) 40 mg PO DAILY [facility] Last Admin: 10/31/16 09:23 Dose: 40 mg Rosuvastatin Calcium (Crestor) 2.5 mg PO HS [facility] Last Admin: 10/30/16 21:19 Dose: 2.5 mg Timolol Maleate (Timoptic 0.25% Ophth Soln) 1 drop OD BID [facility] Last Admin: 10/31/16 09:24 Dose: 1 drop - Labs Labs: 10/31/16 06:37 10/31/16 06:37 PT 12.6 SECONDS (9.7-12.2) H 10/26/16 23:07 INR 1.1 10/26/16 23:07 APTT 36 SECONDS (21-34) H 10/26/16 23:07 - Respiratory Exam Additional comments: Lungs clear - Cardiovascular Exam Cardiovascular Exam: REGULAR RHYTHM - Skin Additional comments: Swelling of Lt breastNo drainage. Not examined in detail . Pt is eating breakfast Assessment and Plan - Assessment and Plan (Free Text) Assessment: ESRD HTN Anemia chronic back pain Lt breast swelling. Mx per Surgery Plan: Continue HD MWF Venofer is added
[2016-10-31] MEDS ORDERED: Sod Polystyrene Sulf 15 gm/60 ml Oral Susp PO ONE (12:00)
[2016-10-31 13:23] LABS: PROLACTIN 240.9 ng/mL (3.0-18.9)
[2016-10-31 14:12] LABS: FOLATE 14.1 ng/mL
--- NOTE | 2016-10-31 14:41 | US ---
HISTORY: old female left breast pain a history of prior cellulitis as per the prior BI-RADS it on the 10/27/2016 breast ultrasound exam patient has pain throughout the left breast on not aware of any breast feeding. No personal history of breast cancer provided No family history of breast cancer. TECHNIQUE: Sonographic evaluation of both breast was performed. Comparison made with the 10/27/2016 breast ultrasound images FINDINGS: LEFT BREAST: No solid or cystic masses identified. There is extensive diffuse left skin thickening with linear reticulated subcutaneous edema present. No discrete fluid collection suggested drainable abscess is noted. No discrete masses appreciated. An extensive lymphedema and/or cellulitis is believe most consistent with this appearance. An inflammatory left carcinoma is not entirely excluded. Clinically cellulitis is bleed most likely . The left axillary lymph node have their cortices borderline prominent approximately 4 mm. Hyperplastic left axillary lymph nodes are consideration. Fatty echogenic hilums maintained. IMPRESSION: No sonographic evidence of a focal malignant mass or a drainable abscess is suggested. Findings are believe most consistent with sense of lymphedema and/or cellulitis for plastic left axillary lymph nodes. This is based on clinical information provided. Continued follow-up is recommended. Apparently patient is not able to stand for diagnostic mammography. Assuming patient is receiving antibiotic treatment, consider follow-up diagnostic mammography and breast ultrasound following antibiotic treatment and 1 patient can stand for mammography. This can be performed as an outpatient. BIRADS: BIRADS 3 Probably Benign Recommendation: Short-interval 1 -month follow-up bilateral diagnostic mammography with quadrant left breast ultrasound
[2016-10-31] MEDS: Cefepime IV 1 gm in Dextrose 1 GM/50 ML BAG IVPB SCH (17:39)
[2016-10-31] MEDS: Rosuvastatin Calcium 2.5 mg Tab PO SCH (22:18)
[2016-11-01] MEDS: HYDROmorphone 1 mg/ml ISec IVP PRN ×5 (00:45→21:29)
[2016-11-01] MEDS: (Novolog) Insulin Aspart, Recombinant 100 u/ml 10 ml vial SC SCH ×4 (07:52→22:00)
[2016-11-01] MEDS: Ferric Sodium Gluconat Complex 62.5 mg/5 ml Vial IVPB SCH ×2 (08:34→14:31)
[2016-11-01 10:08] LABS: ALBUMIN 3.8 g/dL (3.5-5.0)
[2016-11-01 10:11] LABS: AST/SGOT 58 U/L (14-36); GFR AFRICAN-AMERICAN 8; GFR NON-AFRICAN AMERICAN 7
[2016-11-01 10:12] LABS: ALT/SGPT 44 U/L (9-52); BLOOD UREA NITROGEN 75 mg/dL (7-17); CALCIUM 9.2 mg/dl (8.6-10.4)
[2016-11-01] MEDS: Pantoprazole 40 mg EC Tab PO SCH (11:39)
[2016-11-01] MEDS: Lidocaine 5% Patch TD SCH (11:40)
[2016-11-01] MEDS: Timolol 0.25% Ophth SOLN OD SCH ×2 (11:41→18:00)
--- NOTE | 2016-11-01 12:21 | CP.PCM.PN ---
Subjective - Date & Time of Evaluation Date of Evaluation: 11/01/16 Time of Evaluation: 11:15 - Subjective Subjective: Patient seen bedside regarding left heel ulcer. She is seen resting in bed in [facility]. Admits mild sharp pain to left heel. Denies any other LE complications. Denies F/C/N/V but does admit to night sweats. She is seen in bed with offloading boot on left foot. Objective - Vital Signs/Intake and Output Vital Signs (last 24 hours): Temp Pulse Resp BP Pulse Ox 98.1 F 79 20 118/55 L 96 11/01/16 11:36 11/01/16 11:36 11/01/16 11:36 11/01/16 11:36 11/01/16 11:36 - Medications Medications: Current Medications Acetaminophen (Tylenol 325mg Tab) 650 mg PO Q4 PRN PRN Reason: Fever >100.4 F Calcium Acetate (Phoslo) 667 mg PO [facility] Last Admin: 11/01/16 11:41 Dose: 667 mg Carvedilol (Coreg) 25 mg PO BID [facility] Last Admin: 10/31/16 17:39 Dose: 25 mg Clonidine HCl (Catapres-Tts3 0.3 Mg/24 Hr) 1 patch TD Q7D@1000 [facility] Last Admin: 10/27/16 15:55 Dose: 1 patch Diphenhydramine HCl (Benadryl) 25 mg PO Q8 PRN PRN Reason: Itching / Pruritus Last Admin: 11/01/16 00:45 Dose: 25 mg Epoetin Cornelius (Procrit) 8,000 unit IV [facility] Last Admin: 10/30/16 10:09 Dose: 8,000 unit Ferric Sodium Gluconate Complex (Ferrlecit) 125 mg IVPB [facility] Stop: 11/09/16 09:01 Gabapentin (Neurontin) 100 mg PO TID [facility] Last Admin: 11/01/16 11:40 Dose: 100 mg Hydralazine HCl (Apresoline) 100 mg PO Q8 [facility] Last Admin: 11/01/16 05:21 Dose: 100 mg Hydromorphone HCl (Dilaudid) 1 mg IVP Q3H PRN PRN Reason: Pain, moderate (4-7) Last Admin: 11/01/16 11:42 Dose: 1 mg Vancomycin HCl 500 mg/ Sodium (Chloride) 100 mls @ 100 mls/hr IVPB [facility]WF [facility] Last Admin: 10/30/16 13:07 Dose: 100 mls/hr Cefepime HCl (Maxipime Iv 1 Gm Premix) 1 gm in 50 mls @ 100 mls/hr IVPB Q24H [facility] Last Admin: 10/31/16 17:39 Dose: 100 mls/hr Insulin Aspart (Novolog) 0 unit SC ACHS [facility] PRN Reason: Protocol Last Admin: 11/01/16 11:40 Dose: Not Given Lidocaine (Lidoderm) 1 ea TD DAILY [facility] Last Admin: 11/01/16 11:40 Dose: 1 ea Metoclopramide HCl (Reglan) 5 mg PO 0600,1130,1630,2200 [facility] Last Admin: 11/01/16 05:24 Dose: 5 mg Nifedipine (Procardia Xl) 90 mg PO DAILY [facility] Last Admin: 10/31/16 09:23 Dose: 90 mg Pantoprazole Sodium (Protonix Ec Tab) 40 mg PO DAILY [facility] Last Admin: 11/01/16 11:39 Dose: 40 mg Rosuvastatin Calcium (Crestor) 2.5 mg PO HS [facility] Last Admin: 10/31/16 22:18 Dose: 2.5 mg Timolol Maleate (Timoptic 0.25% Oph Soln) 1 drop OD BID [facility] Last Admin: 11/01/16 11:41 Dose: 1 drop - Labs Labs: 10/31/16 06:37 11/01/16 09:43 PT 12.6 SECONDS (9.7-12.2) H 10/26/16 23:07 INR 1.1 10/26/16 23:07 APTT 36 SECONDS (21-34) H 10/26/16 23:07 - Constitutional Appears: No Acute Distress - Extremities Exam Additional comments: Left lower extremity focused exam: Vasc: DP/PT pulses 2/4, [employer]<3 seconds, skin temperature normal, mild edema of the left foot. Derm: Unstageable heel ulcer, no drainage at this time, no malodor, no calor, mild localized erythema. Neuro: Protective sensation decreased. MSK: Pain on palpation to the left heel. - Neurological Exam Neurological Exam: Alert, Awake, Oriented x3 Assessment and Plan - Assessment and Plan (Free Text) Assessment: 41 year old female history of left heel OM with chronic left heel ulceration. Plan: Patient seen and evaluated at bedside. Discussed with Dr. Bran. Labs, chart and vitals were reviewed All questions and concerns were addressed Ulceration cleansed with wound cleanser, dressed with Xeroform, DSD, ABD Continue use of prevalon offloading boot at all times while in bed Stable from podiatry standpoint. Continue abx per ID. Podiatry will continue to follow patient while in house
--- NOTE | 2016-11-01 13:05 | CP.PCM.PN ---
<Isaac Wolf - Last Filed: 11/01/16 13:03> Subjective - Date & Time of Evaluation Date of Evaluation: 11/01/16 Time of Evaluation: 13:03 - Subjective Subjective: Surgery: Dr. Valdez Pt seen and examined. Pain at left breast persist and is relatively unchanged. Plans for OR today were cancelled due to pt receiving dialysis. Objective - Vital Signs/Intake and Output Vital Signs (last 24 hours): Temp Pulse Resp BP Pulse Ox 98.1 F 79 20 118/55 L 96 11/01/16 11:36 11/01/16 11:36 11/01/16 11:36 11/01/16 11:36 11/01/16 11:36 - Medications Medications: Current Medications Acetaminophen (Tylenol 325mg Tab) 650 mg PO Q4 PRN PRN Reason: Fever >100.4 F Calcium Acetate (Phoslo) 667 mg PO TIDCC [facility] Last Admin: 11/01/16 11:41 Dose: 667 mg Carvedilol (Coreg) 25 mg PO BID [facility] Last Admin: 10/31/16 17:39 Dose: 25 mg Clonidine HCl (Catapres-Tts3 0.3 Mg/24 Hr) 1 patch TD Q7D@1000 [facility] Last Admin: 10/27/16 15:55 Dose: 1 patch Diphenhydramine HCl (Benadryl) 25 mg PO Q8 PRN PRN Reason: Itching / Pruritus Last Admin: 11/01/16 00:45 Dose: 25 mg Epoetin Cornelius (Procrit) 8,000 unit IV [facility] Last Admin: 10/30/16 10:09 Dose: 8,000 unit Ferric Sodium Gluconate Complex (Ferrlecit) 125 mg IVPB [facility] Stop: 11/09/16 09:01 Gabapentin (Neurontin) 100 mg PO TID [facility] Last Admin: 11/01/16 11:40 Dose: 100 mg Hydralazine HCl (Apresoline) 100 mg PO Q8 [facility] Last Admin: 11/01/16 05:21 Dose: 100 mg Hydromorphone HCl (Dilaudid) 1 mg IVP Q3H PRN PRN Reason: Pain, moderate (4-7) Last Admin: 11/01/16 11:42 Dose: 1 mg Vancomycin HCl 500 mg/ Sodium (Chloride) 100 mls @ 100 mls/hr IVPB MWF [facility] Last Admin: 10/30/16 13:07 Dose: 100 mls/hr Cefepime HCl (Maxipime Iv 1 Gm Premix) 1 gm in 50 mls @ 100 mls/hr IVPB Q24H [facility] Last Admin: 10/31/16 17:39 Dose: 100 mls/hr Insulin Aspart (Novolog) 0 unit SC ACHS [facility] PRN Reason: Protocol Last Admin: 11/01/16 11:40 Dose: Not Given Lidocaine (Lidoderm) 1 ea TD DAILY [facility] Last Admin: 11/01/16 11:40 Dose: 1 ea Metoclopramide HCl (Reglan) 5 mg PO 0600,1130,1630,2200 [facility] Last Admin: 11/01/16 12:34 Dose: 5 mg Nifedipine (Procardia Xl) 90 mg PO DAILY [facility] Last Admin: 10/31/16 09:23 Dose: 90 mg Pantoprazole Sodium (Protonix Ec Tab) 40 mg PO DAILY [facility] Last Admin: 11/01/16 11:39 Dose: 40 mg Rosuvastatin Calcium (Crestor) 2.5 mg PO HS [facility] Last Admin: 10/31/16 22:18 Dose: 2.5 mg Timolol Maleate (Timoptic 0.25% Ophth Soln) 1 drop OD BID [facility] Last Admin: 11/01/16 11:41 Dose: 1 drop - Labs Labs: 10/31/16 06:37 11/01/16 09:43 PT 12.6 SECONDS (9.7-12.2) H 10/26/16 23:07 INR 1.1 10/26/16 23:07 APTT 36 SECONDS (21-34) H 10/26/16 23:07 - Constitutional Appears: Non-toxic, No Acute Distress - Head Exam Head Exam: ATRAUMATIC, NORMOCEPHALIC - Eye Exam Eye Exam: EOMI - ENT Exam ENT Exam: Mucous Membranes Moist - Neck Exam Neck Exam: Full ROM - Respiratory Exam Respiratory Exam: NORMAL BREATHING PATTERN. absent: Accessory Muscle Use, Respiratory Distress - Neurological Exam Neurological Exam: Alert, Awake, Oriented x3 - Skin Additional comments: L breast tender to palpation in inferior aspect Assessment and Plan - Assessment and Plan (Free Text) Assessment: 41F w. mastitis -OR tomorrow for I&D -consent in chart -NPO at midnight -c/w current medical management -d/w attending Maryann PGY2 <Rajinder Valdez - Last Filed: 11/12/16 16:17> Objective - Vital Signs/Intake and Output Vital Signs (last 24 hours): Temp Pulse Resp BP Pulse Ox 98.3 F 75 18 181/89 H 99 11/04/16 07:20 11/04/16 10:26 11/04/16 07:20 11/04/16 10:28 11/04/16 07:20 - Labs Labs: 11/04/16 06:20 11/04/16 06:20 PT 12.6 SECONDS (9.7-12.2) H 10/26/16 23:07 INR 1.1 10/26/16 23:07 APTT 36 SECONDS (21-34) H 10/26/16 23:07 Attending/Attestation - Attestation I have personally seen and examined this patient.: Yes I have fully participated in the care of the patient.: Yes I have reviewed all pertinent clinical information, including history, physical exam and plan: Yes Notes (Text): 11/12/16 16:14 Pt was seen and examined at bedside on 11/01/16 Agree with above note and assessment Pt with Left breast Cellulitis and abscess OR for I & D and Skin biopsy of Left breast. Today's operation was postponed due to High K Will plan for I & D tomorrow after HD Correct K Plan d/w pt and PMD in detail Risk and benefit explained in detail.
[2016-11-01 13:56] LABS: HEMOGLOBIN 8.8 g/dL (11.0-16.0); MEAN CELL VOLUME 100.3 fL (81.0-99.0); MEAN CORPUSCULAR HEMOGLOBIN 32.1 pg (27.0-31.0); MEAN PLATELET VOLUME 8.7 fL (7.2-11.7); RBC 2.73 Mil/uL (3.80-5.20); RED CELL DISTRIBUTION WIDTH 23.2 % (11.5-14.5); WHITE BLOOD COUNT 11.4 K/uL (4.8-10.8)
[2016-11-01] MEDS: EPOETIN ALFA 4,000 UNIT/ML ML Dialysis IV SCH (14:32)
[2016-11-01] MEDS: NIFEdipine 90 mg ER Tab PO SCH (14:47)
--- NOTE | 2016-11-01 15:12 | CP.PCM.PN ---
Subjective - Date & Time of Evaluation Date of Evaluation: 11/01/16 Time of Evaluation: 03:00 - Subjective Subjective: Currently on dialysis Appears comfortable Objective - Vital Signs/Intake and Output Vital Signs (last 24 hours): Temp Pulse Resp BP Pulse Ox 98 F 80 19 127/52 L 100 11/01/16 13:15 11/01/16 13:15 11/01/16 13:15 11/01/16 14:30 11/01/16 13:15 - Medications Medications: Current Medications Acetaminophen (Tylenol 325mg Tab) 650 mg PO Q4 PRN PRN Reason: Fever >100.4 F Calcium Acetate (Phoslo) 667 mg PO TIDCC [facility] Last Admin: 11/01/16 11:41 Dose: 667 mg Carvedilol (Coreg) 25 mg PO BID [facility] Last Admin: 11/01/16 14:46 Dose: Not Given Clonidine HCl (Catapres-Tts3 0.3 Mg/24 Hr) 1 patch TD Q7D@1000 [facility] Last Admin: 10/27/16 15:55 Dose: 1 patch Diphenhydramine HCl (Benadryl) 25 mg PO Q8 PRN PRN Reason: Itching / Pruritus Last Admin: 11/01/16 00:45 Dose: 25 mg Epoetin Cornelius (Procrit) 8,000 unit IV [facility] [place] Last Admin: 11/01/16 14:32 Dose: 8,000 unit Ferric Sodium Gluconate Complex (Ferrlecit) 125 mg IVPB [facility] Stop: 11/09/16 09:01 Last Admin: 11/01/16 14:31 Dose: 125 mg Gabapentin (Neurontin) 100 mg PO TID [facility] Last Admin: 11/01/16 14:46 Dose: Not Given Hydralazine HCl (Apresoline) 100 mg PO Q8 [facility] Last Admin: 11/01/16 14:46 Dose: Not Given Hydromorphone HCl (Dilaudid) 1 mg IVP Q3H PRN PRN Reason: Pain, moderate (4-7) Last Admin: 11/01/16 11:42 Dose: 1 mg Vancomycin HCl 500 mg/ Sodium (Chloride) 100 mls @ 100 mls/hr IVPB [facility] Last Admin: 10/30/16 13:07 Dose: 100 mls/hr Cefepime HCl (Maxipime Iv 1 Gm Premix) 1 gm in 50 mls @ 100 mls/hr IVPB Q24H [facility] Last Admin: 10/31/16 17:39 Dose: 100 mls/hr Insulin Aspart (Novolog) 0 unit SC ACHS [facility] PRN Reason: Protocol Last Admin: 11/01/16 11:40 Dose: Not Given Lidocaine (Lidoderm) 1 ea TD DAILY [facility] Last Admin: 11/01/16 11:40 Dose: 1 ea Metoclopramide HCl (Reglan) 5 mg PO 0600,1130,1630,2200 [facility] Last Admin: 11/01/16 12:34 Dose: 5 mg Nifedipine (Procardia Xl) 90 mg PO DAILY [facility] Last Admin: 11/01/16 14:47 Dose: Not Given Pantoprazole Sodium (Protonix Ec Tab) 40 mg PO DAILY [facility] Last Admin: 11/01/16 11:39 Dose: 40 mg Rosuvastatin Calcium (Crestor) 2.5 mg PO HS [facility] Last Admin: 10/31/16 22:18 Dose: 2.5 mg Timolol Maleate (Timoptic 0.25% Oph Soln) 1 drop OD BID [facility] Last Admin: 11/01/16 11:41 Dose: 1 drop - Labs Labs: 11/01/16 13:45 11/01/16 09:43 PT 12.6 SECONDS (9.7-12.2) H 10/26/16 23:07 INR 1.1 10/26/16 23:07 APTT 36 SECONDS (21-34) H 10/26/16 23:07 - Respiratory Exam Additional comments: Lungs clear - Cardiovascular Exam Cardiovascular Exam: REGULAR RHYTHM - Extremities Exam Additional comments: No edema Assessment and Plan - Assessment and Plan (Free Text) Assessment: ESRD HTN Lt breast abscess IDDM Plan: Continue HD per schedule. K+ was 6.8 today. Dialysed with 1 K+ bath On renal diet. Reason for hyperkalemia not clear. ? noncompliance with diet. Not on ACEI or ARBS
[2016-11-01] MEDS: Cefepime IV 1 gm in Dextrose 1 GM/50 ML BAG IVPB SCH (17:30)
[2016-11-01] MEDS: Rosuvastatin Calcium 2.5 mg Tab PO SCH (21:27)
--- NOTE | 2016-11-01 23:31 | CP.PCM.PN ---
Subjective - Date & Time of Evaluation Date of Evaluation: 11/01/16 Time of Evaluation: 19:40 - Subjective Subjective: Pt seen and examined. Pain at left breast persist and is relatively unchanged. Plans for OR today were cancelled due to pt receiving dialysis. Objective - Vital Signs/Intake and Output Vital Signs (last 24 hours): Temp Pulse Resp BP Pulse Ox 98.1 F 87 20 140/70 97 11/01/16 17:28 11/01/16 17:28 11/01/16 17:28 11/01/16 17:41 11/01/16 17:28 - Medications Medications: Current Medications Acetaminophen (Tylenol 325mg Tab) 650 mg PO Q4 PRN PRN Reason: Fever >100.4 F Calcium Acetate (Phoslo) 667 mg PO TIDCC [facility] Last Admin: 11/01/16 17:41 Dose: 667 mg Carvedilol (Coreg) 25 mg PO BID [facility] Last Admin: 11/01/16 17:41 Dose: 25 mg Clonidine HCl (Catapres-Tts3 0.3 Mg/24 Hr) 1 patch TD Q7D@1000 [facility] Last Admin: 10/27/16 15:55 Dose: 1 patch Diphenhydramine HCl (Benadryl) 25 mg PO Q8 PRN PRN Reason: Itching / Pruritus Last Admin: 11/01/16 00:45 Dose: 25 mg Epoetin Cornelius (Procrit) 8,000 unit IV [facility] Last Admin: 11/01/16 14:32 Dose: 8,000 unit Ferric Sodium Gluconate Complex (Ferrlecit) 125 mg IVPB [facility] Stop: 11/09/16 09:01 Last Admin: 11/01/16 14:31 Dose: 125 mg Gabapentin (Neurontin) 100 mg PO TID [facility] Last Admin: 11/01/16 17:41 Dose: 100 mg Hydralazine HCl (Apresoline) 100 mg PO Q8 [facility] Last Admin: 11/01/16 21:28 Dose: 100 mg Hydromorphone HCl (Dilaudid) 1 mg IVP Q3H PRN PRN Reason: Pain, moderate (4-7) Last Admin: 11/01/16 21:29 Dose: 1 mg Vancomycin HCl 500 mg/ Sodium (Chloride) 100 mls @ 100 mls/hr IVPB [facility] Last Admin: 11/01/16 17:47 Dose: 100 mls/hr Insulin Aspart (Novolog) 0 unit SC ACHS [facility] PRN Reason: Protocol Last Admin: 11/01/16 17:21 Dose: Not Given Lidocaine (Lidoderm) 1 ea TD DAILY [facility] Last Admin: 11/01/16 11:40 Dose: 1 ea Metoclopramide HCl (Reglan) 5 mg PO 0600,1130,1630,2200 [facility] Last Admin: 11/01/16 21:27 Dose: 5 mg Nifedipine (Procardia Xl) 90 mg PO DAILY [facility] Last Admin: 11/01/16 14:47 Dose: Not Given Pantoprazole Sodium (Protonix Ec Tab) 40 mg PO DAILY [facility] Last Admin: 11/01/16 11:39 Dose: 40 mg Rosuvastatin Calcium (Crestor) 2.5 mg PO HS [facility] Last Admin: 11/01/16 21:27 Dose: 2.5 mg Timolol Maleate (Timoptic 0.25% Oph Soln) 1 drop OD BID [facility] Last Admin: 11/01/16 18:00 Dose: 1 drop - Labs Labs: 11/01/16 13:45 11/01/16 09:43 PT 12.6 SECONDS (9.7-12.2) H 10/26/16 23:07 INR 1.1 10/26/16 23:07 APTT 36 SECONDS (21-34) H 10/26/16 23:07 - Constitutional Appears: No Acute Distress - Head Exam Head Exam: ATRAUMATIC, NORMAL INSPECTION, NORMOCEPHALIC - Eye Exam Eye Exam: EOMI, Normal appearance, PERRL Pupil Exam: NORMAL ACCOMODATION, PERRL - Respiratory Exam Respiratory Exam: Clear to Ausculation Bilateral, NORMAL BREATHING PATTERN - Cardiovascular Exam Cardiovascular Exam: REGULAR RHYTHM, +S1, +S2. absent: Murmur - GI/Abdominal Exam GI & Abdominal Exam: Soft, Normal Bowel Sounds. absent: Tenderness - Neurological Exam Neurological Exam: Alert, Awake, CN II-XII Intact, Normal Gait, Oriented x3 - Psychiatric Exam Psychiatric exam: Normal Affect, Normal Mood - Skin Skin Exam: Erythema, Warm Assessment and Plan (1) Ulcer of right heel Status: Acute (2) DM2 (diabetes mellitus, type 2) Status: Chronic (3) ESRD (end stage renal disease) on dialysis Status: Chronic (4) Hypertension Status: Chronic (5) Mastitis of left breast unrelated to or Status: Acute
[2016-11-02] MEDS: HYDROmorphone 1 mg/ml ISec IVP PRN ×4 (00:41→14:37)
[2016-11-02 07:45] LABS: HEMOGLOBIN 8.8 g/dL (11.0-16.0); MEAN CELL VOLUME 100.1 fL (81.0-99.0); MEAN CORPUSCULAR HEMOGLOBIN 32.7 pg (27.0-31.0); MEAN CORPUSCULAR HGB CONC 32.6 g/dL (33.0-37.0); MEAN PLATELET VOLUME 8.6 fL (7.2-11.7); RBC 2.7 Mil/uL (3.80-5.20); RED CELL DISTRIBUTION WIDTH 23.1 % (11.5-14.5); WHITE BLOOD COUNT 9.6 K/uL (4.8-10.8)
[2016-11-02] MEDS: (Novolog) Insulin Aspart, Recombinant 100 u/ml 10 ml vial SC SCH ×4 (08:15→22:19)
[2016-11-02 08:19] LABS: CALCIUM 9.1 mg/dl (8.6-10.4)
--- NOTE | 2016-11-02 10:17 | CP.PCM.PN ---
Subjective - Date & Time of Evaluation Date of Evaluation: 11/02/16 Time of Evaluation: 08:15 - Subjective Subjective: Pt seen and examined, she underwent drainage from left breast abscess, still c/ o some post op pain Objective - Vital Signs/Intake and Output Vital Signs (last 24 hours): Temp Pulse Resp BP Pulse Ox 98.1 F 80 20 143/63 96 11/01/16 23:15 11/02/16 06:24 11/01/16 23:15 11/02/16 06:24 11/01/16 23:15 Intake and Output: 11/02/16 11/02/16 06:59 18:59 Output Total 1 Balance -1 - Medications Medications: Current Medications Acetaminophen (Tylenol 325mg Tab) 650 mg PO Q4 PRN PRN Reason: Fever >100.4 F Calcium Acetate (Phoslo) 667 mg PO TIDCC [facility] Last Admin: 11/02/16 08:24 Dose: Not Given Carvedilol (Coreg) 25 mg PO BID [facility] Last Admin: 11/01/16 17:41 Dose: 25 mg Clonidine HCl (Catapres-Tts3 0.3 Mg/24 Hr) 1 patch TD Q7D@1000 [facility] Last Admin: 10/27/16 15:55 Dose: 1 patch Diphenhydramine HCl (Benadryl) 25 mg PO Q8 PRN PRN Reason: Itching / Pruritus Last Admin: 11/02/16 00:42 Dose: 25 mg Epoetin Cornelius (Procrit) 8,000 unit IV [facility] [place] Last Admin: 11/01/16 14:32 Dose: 8,000 unit Ferric Sodium Gluconate Complex (Ferrlecit) 125 mg IVPB [facility] [place] Stop: 11/09/16 09:01 Last Admin: 11/01/16 14:31 Dose: 125 mg Gabapentin (Neurontin) 100 mg PO TID [facility] Last Admin: 11/01/16 17:41 Dose: 100 mg Hydralazine HCl (Apresoline) 100 mg PO Q8 [facility] Last Admin: 11/02/16 06:20 Dose: 100 mg Hydromorphone HCl (Dilaudid) 1 mg IVP Q3H PRN PRN Reason: Pain, moderate (4-7) Last Admin: 11/02/16 08:25 Dose: 1 mg Vancomycin HCl 500 mg/ Sodium (Chloride) 100 mls @ 100 mls/hr IVPB MWF [facility] Last Admin: 11/01/16 17:47 Dose: 100 mls/hr Insulin Aspart (Novolog) 0 unit SC ACHS [facility] PRN Reason: Protocol Last Admin: 11/02/16 08:15 Dose: Not Given Lidocaine (Lidoderm) 1 ea TD DAILY [facility] Last Admin: 11/01/16 11:40 Dose: 1 ea Metoclopramide HCl (Reglan) 5 mg PO 0600,1130,1630,2200 [facility] Last Admin: 11/02/16 06:20 Dose: 5 mg Nifedipine (Procardia Xl) 90 mg PO DAILY [facility] Last Admin: 11/01/16 14:47 Dose: Not Given Pantoprazole Sodium (Protonix Ec Tab) 40 mg PO DAILY [facility] Last Admin: 11/01/16 11:39 Dose: 40 mg Rosuvastatin Calcium (Crestor) 2.5 mg PO HS [facility] Last Admin: 11/01/16 21:27 Dose: 2.5 mg Timolol Maleate (Timoptic 0.25% [facility]) 1 drop OD BID [facility] Last Admin: 11/01/16 18:00 Dose: 1 drop - Labs Labs: 11/02/16 07:29 11/02/16 07:29 PT 12.6 SECONDS (9.7-12.2) H 10/26/16 23:07 INR 1.1 10/26/16 23:07 APTT 36 SECONDS (21-34) H 10/26/16 23:07 - Constitutional Appears: No Acute Distress - Head Exam Head Exam: ATRAUMATIC, NORMAL INSPECTION, NORMOCEPHALIC - Eye Exam Eye Exam: EOMI, Normal appearance, PERRL Pupil Exam: NORMAL ACCOMODATION, PERRL - Respiratory Exam Respiratory Exam: Clear to Ausculation Bilateral, NORMAL BREATHING PATTERN - Cardiovascular Exam Cardiovascular Exam: REGULAR RHYTHM, +S1, +S2. absent: Murmur - GI/Abdominal Exam GI & Abdominal Exam: Soft, Normal Bowel Sounds. absent: Tenderness Assessment and Plan (1) Ulcer of right heel Status: Acute (2) DM2 (diabetes mellitus, type 2) Status: Chronic (3) ESRD (end stage renal disease) on dialysis Status: Chronic (4) Hypertension Status: Chronic (5) Mastitis of left breast unrelated to or Status: Acute
--- NOTE | 2016-11-02 10:29 | RAD ---
Chest x-ray single frontal view History: PICC line positioning. Comparison: None available. Findings: Right PICC line with tip extending to the proximal right axillary vein. Advancement into the right SVC is recommended. Moderate venous congestion with right hilar prominence. Portion of the left costophrenic angle partially excluded. Venous congestion. Cardiomegaly. Degenerative changes in the spine and shoulders. Impression: Right PICC line with tip extending to the proximal right axillary vein. Advancement into the right SVC is recommended. Moderate venous congestion with right hilar prominence. Portion of the left costophrenic angle partially excluded. Venous congestion. Cardiomegaly. Degenerative changes in the spine and shoulders.
[2016-11-02] MEDS: Timolol 0.25% Ophth SOLN OD SCH ×2 (11:00→17:38)
[2016-11-02] MEDS: Pantoprazole 40 mg EC Tab PO SCH (11:00)
[2016-11-02] MEDS: NIFEdipine 90 mg ER Tab PO SCH (11:00)
[2016-11-02] MEDS: Lidocaine 5% Patch TD SCH (11:06)
[2016-11-02] MEDS ORDERED: Midazolam 2 MG/2 ML VIAL ONE (12:05)
[2016-11-02] MEDS ORDERED: Propofol 10 mg/ml Inj (20 ML) ONE (12:05)
[2016-11-02] MEDS ORDERED: Lidocaine 1% Inj (20ml) ONE (12:15)
[2016-11-02] MEDS ORDERED: Bupivacaine-Epi 0.25%-1:200,000 PF Inj ONE (12:15)
[2016-11-02] MEDS ORDERED: ceFAZolin IV 1 gm in Dextrose 1 GM/50 ML BAG IVPB ONE (12:54)
--- NOTE | 2016-11-02 13:18 | PCM.SURG1 ---
Surgeon's Initial Post Op Note - Surgeon's Notes Surgeon: José Miguel Production Supervisor Trainee: Maryann PGY2 Type of Anesthesia: MAC, Local Pre-Operative Diagnosis: L breast mastitis/abscess Operative Findings: inflamed/edematous tissue, serous drainage Post-Operative Diagnosis: same Operation Performed: I&D L breast abscess Specimen/Specimens Removed: skin bx, cultures Estimated Blood Loss: EBL {In ML}: 5 Blood Products Given: N/A Drains Used: No Drains Post-Op Condition: Good Date of Surgery/Procedure: 11/02/16 Time of Surgery/Procedure: 13:18
--- NOTE | 2016-11-02 15:20 | CP.PCM.PN ---
Subjective - Date & Time of Evaluation Date of Evaluation: 11/02/16 Time of Evaluation: 02:30 - Subjective Subjective: C/o pain in Lt breast No SOB noted Objective - Vital Signs/Intake and Output Vital Signs (last 24 hours): Temp Pulse Resp BP Pulse Ox 98.0 F 79 18 139/79 96 11/02/16 14:36 11/02/16 14:36 11/02/16 14:36 11/02/16 14:36 11/02/16 14:36 Intake and Output: 11/02/16 11/02/16 06:59 18:59 Output Total 1 Balance -1 - Medications Medications: Current Medications Acetaminophen (Tylenol 325mg Tab) 650 mg PO Q4 PRN PRN Reason: Fever >100.4 F Calcium Acetate (Phoslo) 667 mg PO TIDCC [facility] Last Admin: 11/02/16 12:49 Dose: Not Given Carvedilol (Coreg) 25 mg PO BID [facility] Last Admin: 11/02/16 11:00 Dose: 25 mg Clonidine HCl (Catapres-Tts3 0.3 Mg/24 Hr) 1 patch TD Q7D@1000 [facility] Last Admin: 10/27/16 15:55 Dose: 1 patch Diphenhydramine HCl (Benadryl) 25 mg PO Q8 PRN PRN Reason: Itching / Pruritus Last Admin: 11/02/16 00:42 Dose: 25 mg Epoetin Cornelius (Procrit) 8,[address] [facility] [place] Last Admin: 11/01/16 14:32 Dose: 8,000 unit Ferric Sodium Gluconate Complex (Ferrlecit) [address] [facility] Stop: 11/09/16 09:01 Last Admin: 11/01/16 14:31 Dose: 125 mg Gabapentin (Neurontin) 100 mg PO TID [facility] Last Admin: 11/02/16 14:37 Dose: 100 mg Hydralazine HCl (Apresoline) 100 mg PO Q8 [facility] Last Admin: 11/02/16 14:37 Dose: 100 mg Hydromorphone HCl (Dilaudid) 1 mg IVP Q3H PRN PRN Reason: Pain, moderate (4-7) Last Admin: 11/02/16 14:37 Dose: 1 mg Vancomycin HCl 500 mg/ Sodium (Chloride) 100 mls @ 100 mls/hr IVPB [facility] Last Admin: 11/01/16 17:47 Dose: 100 mls/hr Insulin Aspart (Novolog) 0 unit SC ACHS [facility] PRN Reason: Protocol Last Admin: 11/02/16 12:00 Dose: Not Given Lidocaine (Lidoderm) 1 ea TD DAILY [facility] Last Admin: 11/02/16 11:06 Dose: 1 ea Metoclopramide HCl (Reglan) 5 mg PO 0600,1130,1630,2200 [facility] Last Admin: 11/02/16 12:50 Dose: Not Given Nifedipine (Procardia Xl) 90 mg PO DAILY [facility] Last Admin: 11/02/16 11:00 Dose: 90 mg Pantoprazole Sodium (Protonix Ec Tab) 40 mg PO DAILY [facility] Last Admin: 11/01/16 11:39 Dose: 40 mg Rosuvastatin Calcium (Crestor) 2.5 mg PO HS [facility] Last Admin: 11/01/16 21:27 Dose: 2.5 mg Timolol Maleate (Timoptic 0.25% Oph Soln) 1 drop OD BID [facility] Last Admin: 11/02/16 11:00 Dose: 1 drop - Labs Labs: 11/02/16 07:29 11/02/16 07:29 PT 12.6 SECONDS (9.7-12.2) H 10/26/16 23:07 INR 1.1 10/26/16 23:07 APTT 36 SECONDS (21-34) H 10/26/16 23:07 - Respiratory Exam Additional comments: Lungs clear - Cardiovascular Exam Cardiovascular Exam: REGULAR RHYTHM - Extremities Exam Additional comments: No edema Assessment and Plan - Assessment and Plan (Free Text) Assessment: ESRD HTN Anemia Lt breast abscess Plan: K+ is controlled For dialysis tomorrow S/P Lt brest abscess I&D
[2016-11-02] MEDS: HYDROmorphone 1 mg/ml ISec SC PRN ×2 (17:38→21:23)
[2016-11-02] MEDS: Rosuvastatin Calcium 2.5 mg Tab PO SCH (21:21)
--- NOTE | 2016-11-03 02:26 | CP.PCM.PN ---
Subjective - Date & Time of Evaluation Date of Evaluation: 11/03/16 Time of Evaluation: 20:00 - Subjective Subjective: Pt seen & evaluated, is feeling better Objective - Vital Signs/Intake and Output Vital Signs (last 24 hours): Temp Pulse Resp BP Pulse Ox 98.8 F 72 20 134/79 98 11/02/16 23:10 11/02/16 23:10 11/02/16 23:10 11/02/16 23:10 11/02/16 23:10 - Medications Medications: Current Medications Acetaminophen (Tylenol 325mg Tab) 650 mg PO Q4 PRN PRN Reason: Fever >100.4 F Calcium Acetate (Phoslo) 667 mg PO TIDCC [facility] Last Admin: 11/02/16 17:37 Dose: 667 mg Carvedilol (Coreg) 25 mg PO BID [facility] Last Admin: 11/02/16 17:38 Dose: 25 mg Clonidine HCl (Catapres-Tts3 0.3 Mg/24 Hr) 1 patch TD Q7D@1000 [facility] Last Admin: 10/27/16 15:55 Dose: 1 patch Diphenhydramine HCl (Benadryl) 25 mg PO Q8 PRN PRN Reason: Itching / Pruritus Last Admin: 11/02/16 00:42 Dose: 25 mg Epoetin Cornelius (Procrit) 8,000 unit IV [facility] [place] Last Admin: 11/01/16 14:32 Dose: 8,000 unit Ferric Sodium Gluconate Complex (Ferrlecit) 125 mg IVPB [facility] Stop: 11/09/16 09:01 Last Admin: 11/01/16 14:31 Dose: 125 mg Gabapentin (Neurontin) 100 mg PO TID [facility] Last Admin: 11/02/16 17:37 Dose: 100 mg Hydralazine HCl (Apresoline) 100 mg PO Q8 [facility] Last Admin: 11/02/16 21:21 Dose: 100 mg Hydromorphone HCl (Dilaudid) 1 mg SC Q3H PRN PRN Reason: Pain, moderate (4-7) Last Admin: 11/02/16 21:23 Dose: 1 mg Vancomycin HCl 500 mg/ Sodium (Chloride) 100 mls @ 100 mls/hr IVPB [facility] Last Admin: 11/01/16 17:47 Dose: 100 mls/hr Insulin Aspart (Novolog) 0 unit SC ACHS [facility] PRN Reason: Protocol Last Admin: 11/02/16 22:19 Dose: Not Given Lidocaine (Lidoderm) 1 ea TD DAILY [facility] Last Admin: 11/02/16 11:06 Dose: 1 ea Metoclopramide HCl (Reglan) 5 mg PO 0600,1130,1630,2200 [facility] Last Admin: 11/02/16 21:21 Dose: 5 mg Nifedipine (Procardia Xl) 90 mg PO DAILY [facility] Last Admin: 11/02/16 11:00 Dose: 90 mg Pantoprazole Sodium (Protonix Ec Tab) 40 mg PO DAILY [facility] Last Admin: 11/02/16 11:00 Dose: Not Given Rosuvastatin Calcium (Crestor) 2.5 mg PO HS [facility] Last Admin: 11/02/16 21:21 Dose: 2.5 mg Timolol Maleate (Timoptic 0.25% [facility] Soln) 1 drop OD BID [facility] Last Admin: 11/02/16 17:38 Dose: 1 drop - Labs Labs: 11/02/16 07:29 11/02/16 07:29 PT 12.6 SECONDS (9.7-12.2) H 10/26/16 23:07 INR 1.1 10/26/16 23:07 APTT 36 SECONDS (21-34) H 10/26/16 23:07 Assessment and Plan (1) Ulcer of right heel Status: Acute (2) DM2 (diabetes mellitus, type 2) Status: Chronic (3) ESRD (end stage renal disease) on dialysis Status: Chronic (4) Hypertension Status: Chronic (5) Mastitis of left breast unrelated to or Status: Acute
[2016-11-03] MEDS: HYDROmorphone 1 mg/ml ISec SC PRN ×2 (06:03→10:41)
[2016-11-03] MEDS: (Novolog) Insulin Aspart, Recombinant 100 u/ml 10 ml vial SC SCH ×4 (08:08→22:19)
--- NOTE | 2016-11-03 08:41 | CP.PCM.PN ---
<Be Oconnell - Last Filed: 11/03/16 08:39> Subjective - Date & Time of Evaluation Date of Evaluation: 11/03/16 Time of Evaluation: 08:39 - Subjective Subjective: Gen Sx: Dr Valdez Pt S&E. SHITALO. POD#1 s/p I&D of left breast abscess. Pt states she is sore. Refuses to answer any other questions or open her eyes. Refused to allow team to examine her wound. Will re-evaluate this afternoon. Objective - Vital Signs/Intake and Output Vital Signs (last 24 hours): Temp Pulse Resp BP Pulse Ox 98.5 F 73 18 130/69 94 L 11/03/16 08:36 11/03/16 08:36 11/03/16 08:36 11/03/16 08:36 11/03/16 08:36 - Medications Medications: Current Medications Acetaminophen (Tylenol 325mg Tab) 650 mg PO Q4 PRN PRN Reason: Fever >100.4 F Calcium Acetate (Phoslo) 667 mg PO TIDCC [facility] Last Admin: 11/02/16 17:37 Dose: 667 mg Carvedilol (Coreg) 25 mg PO BID [facility] Last Admin: 11/02/16 17:38 Dose: 25 mg Clonidine HCl (Catapres-Tts3 0.3 Mg/24 Hr) 1 patch TD Q7D@1000 [facility] Last Admin: 10/27/16 15:55 Dose: 1 patch Diphenhydramine HCl (Benadryl) 25 mg PO Q8 PRN PRN Reason: Itching / Pruritus Last Admin: 11/02/16 00:42 Dose: 25 mg Epoetin Cornelius (Procrit) 8,000 unit IV [facility] [place] Last Admin: 11/01/16 14:32 Dose: 8,000 unit Ferric Sodium Gluconate Complex (Ferrlecit) 125 mg IVPB [facility] [place] [facility] Stop: 11/09/16 09:01 Last Admin: 11/01/16 14:31 Dose: 125 mg Gabapentin (Neurontin) 100 mg PO TID [facility] Last Admin: 11/02/16 17:37 Dose: 100 mg Hydralazine HCl (Apresoline) 100 mg PO Q8 [facility] Last Admin: 11/03/16 06:14 Dose: 100 mg Hydromorphone HCl (Dilaudid) 1 mg SC Q3H PRN PRN Reason: Pain, moderate (4-7) Last Admin: 11/03/16 06:03 Dose: 1 mg Vancomycin HCl 500 mg/ Sodium (Chloride) 100 mls @ 100 mls/hr IVPB MWF [facility] Last Admin: 11/01/16 17:47 Dose: 100 mls/hr Insulin Aspart (Novolog) 0 unit SC ACHS [facility] PRN Reason: Protocol Last Admin: 11/03/16 08:08 Dose: Not Given Lidocaine (Lidoderm) 1 ea TD DAILY [facility] Last Admin: 11/02/16 11:06 Dose: 1 ea Metoclopramide HCl (Reglan) 5 mg PO 0600,1130,1630,2200 [facility] Last Admin: 11/03/16 06:04 Dose: 5 mg Nifedipine (Procardia Xl) 90 mg PO DAILY [facility] Last Admin: 11/02/16 11:00 Dose: 90 mg Pantoprazole Sodium (Protonix Ec Tab) 40 mg PO DAILY [facility] Last Admin: 11/02/16 11:00 Dose: Not Given Rosuvastatin Calcium (Crestor) 2.5 mg PO HS [facility] Last Admin: 11/02/16 21:21 Dose: 2.5 mg Timolol Maleate (Timoptic 0.25% Ophth Soln) 1 drop OD BID [facility] Last Admin: 11/02/16 17:38 Dose: 1 drop - Labs Labs: 11/02/16 07:29 11/02/16 07:29 PT 12.6 SECONDS (9.7-12.2) H 10/26/16 23:07 INR 1.1 10/26/16 23:07 APTT 36 SECONDS (21-34) H 10/26/16 23:07 Assessment and Plan - Assessment and Plan (Free Text) Assessment: 41F POD#1 s/p I&D of left breast abscess Plan: pt refusing physical examination or dressing changes this morning will re-evaluate in PM cont Iv abx will d/w Dr José Miguel Oconnell, PGY2 <Rajinder Valdez B - Last Filed: 11/12/16 16:21> Objective - Vital Signs/Intake and Output Vital Signs (last 24 hours): Temp Pulse Resp BP Pulse Ox 98.3 F 75 18 181/89 H 99 11/04/16 07:20 11/04/16 10:26 11/04/16 07:20 11/04/16 10:28 11/04/16 07:20 - Labs Labs: 11/04/16 06:20 11/04/16 06:20 PT 12.6 SECONDS (9.7-12.2) H 10/26/16 23:07 INR 1.1 10/26/16 23:07 APTT 36 SECONDS (21-34) H 10/26/16 23:07 Attending/Attestation - Attestation I have personally seen and examined this patient.: Yes I have fully participated in the care of the patient.: Yes I have reviewed all pertinent clinical information, including history, physical exam and plan: Yes Notes (Text): 11/12/16 16:21 Pt was seen and examined at bedside on 11/02/16 Agree with above note and assessment
[2016-11-03] MEDS: Lidocaine 5% Patch TD SCH (09:43)
[2016-11-03] MEDS: Timolol 0.25% Ophth SOLN OD SCH ×2 (09:45→18:59)
[2016-11-03] MEDS: Pantoprazole 40 mg EC Tab PO SCH (09:46)
--- NOTE | 2016-11-03 10:50 | CP.PCM.PN ---
Subjective - Date & Time of Evaluation Date of Evaluation: 11/03/16 Time of Evaluation: 10:40 - Subjective Subjective: C/o lot of pain in Lt breast & gets sob Objective - Vital Signs/Intake and Output Vital Signs (last 24 hours): Temp Pulse Resp BP Pulse Ox 98.5 F 75 18 131/72 94 L 11/03/16 08:36 11/03/16 10:33 11/03/16 08:36 11/03/16 10:33 11/03/16 08:36 - Medications Medications: Current Medications Acetaminophen (Tylenol 325mg Tab) 650 mg PO Q4 PRN PRN Reason: Fever >100.4 F Calcium Acetate (Phoslo) 667 mg PO TIDCC [facility] Last Admin: 11/03/16 08:48 Dose: 667 mg Carvedilol (Coreg) 25 mg PO BID [facility] Last Admin: 11/02/16 17:38 Dose: 25 mg Clonidine HCl (Catapres-Tts3 0.3 Mg/24 Hr) 1 patch TD Q7D@1000 [facility] Last Admin: 10/27/16 15:55 Dose: 1 patch Diphenhydramine HCl (Benadryl) 25 mg PO Q8 PRN PRN Reason: Itching / Pruritus Last Admin: 11/02/16 00:42 Dose: 25 mg Epoetin Cornelius (Procrit) 8,000 unit IV [facility] [place] Last Admin: 11/01/16 14:32 Dose: 8,000 unit Ferric Sodium Gluconate Complex (Ferrlecit) 125 mg IVPB [facility] [place] Stop: 11/09/16 09:01 Last Admin: 11/01/16 14:31 Dose: 125 mg Gabapentin (Neurontin) 100 mg PO TID [facility] Last Admin: 11/03/16 09:46 Dose: 100 mg Hydralazine HCl (Apresoline) 100 mg PO Q8 [facility] Last Admin: 11/03/16 06:14 Dose: 100 mg Hydromorphone HCl (Dilaudid) 1 mg SC Q3H PRN PRN Reason: Pain, moderate (4-7) Last Admin: 11/03/16 10:41 Dose: 1 mg Vancomycin HCl 500 mg/ Sodium (Chloride) 100 mls @ 100 mls/hr IVPB [facility] [place] Last Admin: 11/01/16 17:47 Dose: 100 mls/hr Insulin Aspart (Novolog) 0 unit SC ACHS [facility] PRN Reason: Protocol Last Admin: 11/03/16 08:08 Dose: Not Given Lidocaine (Lidoderm) 1 ea TD DAILY [facility] Last Admin: 11/03/16 09:43 Dose: 1 ea Metoclopramide HCl (Reglan) 5 mg PO 0600,1130,1630,2200 [facility] Last Admin: 11/03/16 06:04 Dose: 5 mg Nifedipine (Procardia Xl) 90 mg PO DAILY [facility] Last Admin: 11/02/16 11:00 Dose: 90 mg Pantoprazole Sodium (Protonix Ec Tab) 40 mg PO DAILY [facility] Last Admin: 11/03/16 09:46 Dose: 40 mg Rosuvastatin Calcium (Crestor) 2.5 mg PO HS [facility] Last Admin: 11/02/16 21:21 Dose: 2.5 mg Timolol Maleate (Timoptic 0.25% Ophth Soln) 1 drop OD BID [facility] Last Admin: 11/03/16 09:45 Dose: 1 drop - Labs Labs: 11/02/16 07:29 11/02/16 07:29 PT 12.6 SECONDS (9.7-12.2) H 10/26/16 23:07 INR 1.1 10/26/16 23:07 APTT 36 SECONDS (21-34) H 10/26/16 23:07 - Respiratory Exam Additional comments: Lungs clear - Cardiovascular Exam Cardiovascular Exam: REGULAR RHYTHM - Extremities Exam Additional comments: No edema Assessment and Plan - Assessment and Plan (Free Text) Assessment: ESRD HTN S/P I&D of Lt breast abscess Plan: Is scheduled for dialysis today UF as tolerated Gram stain shows no organisms
--- NOTE | 2016-11-03 12:37 | PCM.SURG1 ---
Surgeon's Initial Post Op Note - Surgeon's Notes Surgeon: Stone Escamilla MD Critical Care Nurse Specialist: NONE Type of Anesthesia: None Pre-Operative Diagnosis: Malpositioned picc Operative Findings: Right arm picc in subclavian vein, no blood return. Post-Operative Diagnosis: Malpositioned picc Operation Performed: Right arm single lumen picc exchange for a new single lumen picc, 38 cm. Tip in SVC. Specimen/Specimens Removed: Existing picc Estimated Blood Loss: EBL {In ML}: 0 Blood Products Given: N/A Drains Used: No Drains Post-Op Condition: Fair Date of Surgery/Procedure: 11/03/16 Time of Surgery/Procedure: 12:35
[2016-11-03] MEDS: HYDROmorphone 1 mg/ml ISec IVP PRN ×3 (13:37→22:55)
[2016-11-03] MEDS: NIFEdipine 90 mg ER Tab PO SCH (15:00)
[2016-11-03] MEDS: Ferric Sodium Gluconat Complex 62.5 mg/5 ml Vial IVPB SCH (15:07)
[2016-11-03] MEDS: EPOETIN ALFA 4,000 UNIT/ML ML Dialysis IV SCH (15:07)
[2016-11-03] MEDS: Rosuvastatin Calcium 2.5 mg Tab PO SCH (22:15)
[2016-11-04] MEDS: HYDROmorphone 1 mg/ml ISec IVP PRN ×3 (03:30→14:18)
[2016-11-04 06:38] LABS: BASO # 0.1 K/uL (0.0-0.2); BASO % 0.7 % (0.0-2.0); EOS # 1.1 K/uL (0.0-0.7); EOS % 12.2 % (0.0-4.0); HEMOGLOBIN 8.6 g/dL (11.0-16.0); LYMPH % 10.5 % (20.0-40.0); MEAN CELL VOLUME 100.9 fL (81.0-99.0); MEAN CORPUSCULAR HEMOGLOBIN 32.6 pg (27.0-31.0); MEAN CORPUSCULAR HGB CONC 32.3 g/dL (33.0-37.0); MEAN PLATELET VOLUME 8.6 fL (7.2-11.7); MONO # 0.9 K/uL (0.0-0.8); MONO % 9.4 % (0.0-10.0); NEUT # 6.2 K/uL (1.8-7.0); NEUT % 67.2 % (50.0-75.0); RBC 2.63 Mil/uL (3.80-5.20); RED CELL DISTRIBUTION WIDTH 22.8 % (11.5-14.5); WHITE BLOOD COUNT 9.3 K/uL (4.8-10.8)
[2016-11-04 07:22] LABS: ALBUMIN 3.7 g/dL (3.5-5.0)
[2016-11-04 07:26] LABS: CALCIUM 8.7 mg/dl (8.6-10.4)
[2016-11-04 08:15] VITALS: RESP 18; TEMP 98.3; O2SAT 99
[2016-11-04] MEDS: (Novolog) Insulin Aspart, Recombinant 100 u/ml 10 ml vial SC SCH ×2 (08:51→13:54)
--- NOTE | 2016-11-04 09:08 | CP.PCM.PN ---
Subjective - Date & Time of Evaluation Date of Evaluation: 11/04/16 Time of Evaluation: 09:00 - Subjective Subjective: pt seen this am for follow up ulcer left heel chronic in nature . Objective - Vital Signs/Intake and Output Vital Signs (last 24 hours): Temp Pulse Resp BP Pulse Ox 98.3 F 73 18 171/91 H 99 11/04/16 07:20 11/04/16 07:20 11/04/16 07:20 11/04/16 08:47 11/04/16 07:20 Intake and Output: 11/04/16 11/04/16 06:59 18:59 Intake Total 400 Balance 400 - Medications Medications: Current Medications Acetaminophen (Tylenol 325mg Tab) 650 mg PO Q4 PRN PRN Reason: Fever >100.4 F Calcium Acetate (Phoslo) 667 mg PO TIDCC [facility] Last Admin: 11/04/16 08:47 Dose: 667 mg Carvedilol (Coreg) 25 mg PO BID [facility] Last Admin: 11/03/16 19:00 Dose: 25 mg Clonidine HCl (Catapres-Tts3 0.3 Mg/24 Hr) 1 patch TD Q7D@1000 [facility] Last Admin: 11/03/16 18:59 Dose: 1 patch Diphenhydramine HCl (Benadryl) 25 mg PO Q8 PRN PRN Reason: Itching / Pruritus Last Admin: 11/02/16 00:42 Dose: 25 mg Epoetin Cornelius (Procrit) 8,000 unit IV MWF [facility] Last Admin: 11/03/16 15:07 Dose: 8,000 unit Fentanyl (Duragesic) 1 patch TD Q72H [facility] Last Admin: 11/03/16 18:59 Dose: 1 patch Ferric Sodium Gluconate Complex (Ferrlecit) 125 mg IVPB MWF [facility] Stop: 11/09/16 09:01 Last Admin: 11/03/16 15:07 Dose: 125 mg Gabapentin (Neurontin) 100 mg PO TID [facility] Last Admin: 11/03/16 18:58 Dose: 100 mg Hydralazine HCl (Apresoline) 100 mg PO Q8 [facility] Last Admin: 11/04/16 05:35 Dose: 100 mg Hydromorphone HCl (Dilaudid) 1 mg IVP Q3H PRN PRN Reason: Pain, moderate (4-7) Last Admin: 11/04/16 08:49 Dose: 1 mg Vancomycin HCl 500 mg/ Sodium (Chloride) 100 mls @ 100 mls/hr IVPB MWF [facility] Last Admin: 11/03/16 18:43 Dose: 100 mls/hr Insulin Aspart (Novolog) 0 unit SC ACHS [facility] PRN Reason: Protocol Last Admin: 11/04/16 08:51 Dose: Not Given Lidocaine (Lidoderm) 1 ea TD DAILY [facility] Last Admin: 11/03/16 09:43 Dose: 1 ea Metoclopramide HCl (Reglan) 5 mg PO 0600,1130,1630,2200 [facility] Last Admin: 11/04/16 06:07 Dose: 5 mg Nifedipine (Procardia Xl) 90 mg PO DAILY [facility] Last Admin: 11/02/16 11:00 Dose: 90 mg Pantoprazole Sodium (Protonix Ec Tab) 40 mg PO DAILY [facility] Last Admin: 11/03/16 09:46 Dose: 40 mg Rosuvastatin Calcium (Crestor) 2.5 mg PO HS [facility] Last Admin: 11/03/16 22:15 Dose: 2.5 mg Timolol Maleate (Timoptic 0.25% [facility] Soln) 1 drop OD BID [facility] Last Admin: 11/03/16 18:59 Dose: 1 drop - Labs Labs: 11/04/16 06:20 11/04/16 06:20 PT 12.6 SECONDS (9.7-12.2) H 10/26/16 23:07 INR 1.1 10/26/16 23:07 APTT 36 SECONDS (21-34) H 10/26/16 23:07 - Extremities Exam Additional comments: O/ heel ulcer resolving well with no sign of infection noted . Small alves 1 ulcer anterior ankle /dorsum foot noted .5cm x .5cm x 0.1 cm. left foot . 100 % granular tissue noted ,Vascular status intact grossly .DM neuropathy b /l . Assessment and Plan - Assessment and Plan (Free Text) Assessment: A/Heel Ulcer /Alves 1 ulcer left . Plan: P/Apply Xeroform Dry dressing left foot .Discussed RX Depth Inlay shoes with AFO to of load heel when discharged to subacute .
[2016-11-04 10:27] VITALS: BP 181/89; PULSE 75
[2016-11-04] MEDS: NIFEdipine 90 mg ER Tab PO SCH (10:28)
[2016-11-04] MEDS: Pantoprazole 40 mg EC Tab PO SCH (10:28)
[2016-11-04] MEDS: Lidocaine 5% Patch TD SCH (10:29)
[2016-11-04] MEDS: Timolol 0.25% Ophth SOLN OD SCH (10:29)
--- NOTE | 2016-11-04 11:11 | CP.PCM.PN ---
Subjective - Date & Time of Evaluation Date of Evaluation: 11/04/16 Time of Evaluation: 11:07 - Subjective Subjective: 41 Y/O FEMALE SEEN AND EXAMINED TODAY, PT DENIES ANY PAIN, RESP EASY AND UNLABORED. PMHX ESRD, HD, HTN, ADMITTED FOR LEFT BREAST CELLULITIS, S/P I & D, HEEL ULCER, NAD, DSG AT LEFT BREAST C/D/I. PT CLEARED FOR D/C PER DR LEE AND DR HDEZ, PT WILL BE GOING TO [facility] WITH VANCO 500 MG M/W/F, CEFEPIME 1 GM M/W/F PER DR HDEZ ( I SPOKE TO HIM ON 11/04). NO FURTHER ORDERS. Objective - Vital Signs/Intake and Output Vital Signs (last 24 hours): Temp Pulse Resp BP Pulse Ox 98.3 F 75 18 181/89 H 99 11/04/16 07:20 11/04/16 10:26 11/04/16 07:20 11/04/16 10:28 11/04/16 07:20 Intake and Output: 11/04/16 11/04/16 06:59 18:59 Intake Total 400 Balance 400 - Medications Medications: Current Medications Acetaminophen (Tylenol 325mg Tab) 650 mg PO Q4 PRN PRN Reason: Fever >100.4 F Calcium Acetate (Phoslo) 667 mg PO TIDCC [facility] Last Admin: 11/04/16 08:47 Dose: 667 mg Carvedilol (Coreg) 25 mg PO BID [facility] Last Admin: 11/04/16 10:28 Dose: 25 mg Clonidine HCl (Catapres-Tts3 0.3 Mg/24 Hr) 1 patch TD Q7D@1000 [facility] Last Admin: 11/03/16 18:59 Dose: 1 patch Diphenhydramine HCl (Benadryl) 25 mg PO Q8 PRN PRN Reason: Itching / Pruritus Last Admin: 11/02/16 00:42 Dose: 25 mg Epoetin Cornelius (Procrit) 8,000 unit IV F [facility] Last Admin: 11/03/16 15:07 Dose: 8,000 unit Fentanyl (Duragesic) 1 patch TD Q72H [facility] Last Admin: 11/03/16 18:59 Dose: 1 patch Ferric Sodium Gluconate Complex (Ferrlecit) 125 mg [place] [facility] Stop: 11/09/16 09:01 Last Admin: 11/03/16 15:07 Dose: 125 mg Gabapentin (Neurontin) 100 mg PO TID [facility] Last Admin: 11/04/16 10:28 Dose: 100 mg Hydralazine HCl (Apresoline) 100 mg PO Q8 [facility] Last Admin: 11/04/16 05:35 Dose: 100 mg Hydromorphone HCl (Dilaudid) 1 mg IVP Q3H PRN PRN Reason: Pain, moderate (4-7) Last Admin: 11/04/16 08:49 Dose: 1 mg Vancomycin HCl 500 mg/ Sodium (Chloride) 100 mls @ 100 mls/hr [place]PB [facility] Last Admin: 11/03/16 18:43 Dose: 100 mls/hr Insulin Aspart (Novolog) 0 unit SC ACHS [facility] PRN Reason: Protocol Last Admin: 11/04/16 08:51 Dose: Not Given Lidocaine (Lidoderm) 1 ea TD DAILY [facility] Last Admin: 11/04/16 10:29 Dose: 1 ea Metoclopramide HCl (Reglan) 5 mg PO 0600,1130,1630,2200 [facility] Last Admin: 11/04/16 10:30 Dose: 5 mg Nifedipine (Procardia Xl) 90 mg PO DAILY [facility] Last Admin: 11/04/16 10:28 Dose: 90 mg Pantoprazole Sodium (Protonix Ec Tab) 40 mg PO DAILY [facility] Last Admin: 11/04/16 10:28 Dose: 40 mg Rosuvastatin Calcium (Crestor) 2.5 mg PO HS [facility] Last Admin: 11/03/16 22:15 Dose: 2.5 mg Timolol Maleate (Timoptic 0.25% Oph Soln) 1 drop OD BID [facility] Last Admin: 11/04/16 10:29 Dose: 1 drop - Labs Labs: 11/04/16 06:20 11/04/16 06:20 PT 12.6 SECONDS (9.7-12.2) H 10/26/16 23:07 INR 1.1 10/26/16 23:07 APTT 36 SECONDS (21-34) H 10/26/16 23:07
--- NOTE | 2016-11-04 21:04 | CP.PCM.PN ---
Subjective - Date & Time of Evaluation Date of Evaluation: 11/04/16 Time of Evaluation: 15:00 - Subjective Subjective: Follow up Nephrology Consultation: Assessment: End stage renal disease on hemodialysis (MWF) via AVF Anemia, Hyperphosphatemia, Secondary hyperparathyroidism, HTN kidney disease left foot acute osteomyelitis breast abscess s/p I and D Plan: No acute need for dialysis today. nexh HD sunday.Continue with Nephrovite 1 tab/ day. PRBC as needed for anemia. On EDMAR as epogen 10,000 unit with HD, last Hb 8.6 Continue with phos binders home meds, jeremi k phos level BP control with meds as ordered. add minoxidil 2.5 mg daily Glycemic control, Dialysis consistent diet, low K diet Further work up/management for her pain/breast abscess as per primary team Dose meds/antibiotics for ESRD status. Avoid fleets enema/magnesium based laxatives. Thanks for allowing me to participate in care of your patient. Will follow patient with you. Please call if any Qs Dr Aurelio Brar Office: [phone] Subjective: noted events overnight. c/o back pain and breast pain. denies SOB Physical Examination: General Appearance:comfortable, in no acute respiratory distress, co-operative . Vitals reviewed and noted as below Lungs: Normal respiratory rate/effort. Breath sounds bilateral equal clear Heart: Normal rate. s1s2 normal. No rub or gallop. Extremities: no edema. No varicose veins. her left foot is dressed Neurological: Patient is awake and oriented to person, place and time. No focal deficit. Strength bilateral appropriate and equal. Abdomen: Abdomen is soft. Bowel sounds +. There is abdominal tenderness out of proportion to exam Access: AVF Labs/imaging reviewed. Past medical history, past surgical history, family history, social history, allergy reviewed Objective - Vital Signs/Intake and Output Vital Signs (last 24 hours): Temp Pulse Resp BP Pulse Ox 98.3 F 75 18 181/89 H 99 11/04/16 07:20 11/04/16 10:26 11/04/16 07:20 11/04/16 10:28 11/04/16 07:20 - Medications Medications: Current Medications Acetaminophen (Tylenol 325mg Tab) 650 mg PO Q4 PRN PRN Reason: Fever >100.4 F Calcium Acetate (Phoslo) 667 mg PO TIDCC [facility] Last Admin: 11/04/16 13:53 Dose: 667 mg Carvedilol (Coreg) 25 mg PO BID [facility] Last Admin: 11/04/16 10:28 Dose: 25 mg Clonidine HCl (Catapres-Tts3 0.3 Mg/24 Hr) 1 patch TD Q7D@1000 [facility] Last Admin: 11/03/16 18:59 Dose: 1 patch Diphenhydramine HCl (Benadryl) 25 mg PO Q8 PRN PRN Reason: Itching / Pruritus Last Admin: 11/02/16 00:42 Dose: 25 mg Epoetin Cornelius (Procrit) 10,000 unit IV [facility] [place] Fentanyl (Duragesic) 1 patch TD Q72H [facility] Last Admin: 11/03/16 18:59 Dose: 1 patch Ferric Sodium Gluconate Complex (Ferrlecit) 125 mg IVPB [facility] Stop: 11/09/16 09:01 Last Admin: 11/03/16 15:07 Dose: 125 mg Gabapentin (Neurontin) 100 mg PO TID [facility] Last Admin: 11/04/16 13:53 Dose: 100 mg Hydralazine HCl (Apresoline) 100 mg PO Q8 [facility] Last Admin: 11/04/16 13:53 Dose: 100 mg Hydromorphone HCl (Dilaudid) 1 mg IVP Q3H PRN PRN Reason: Pain, moderate (4-7) Last Admin: 11/04/16 14:18 Dose: 1 mg Vancomycin HCl 500 mg/ Sodium (Chloride) 100 mls @ 100 mls/hr IVPB [facility] Last Admin: 11/03/16 18:43 Dose: 100 mls/hr Insulin Aspart (Novolog) 0 unit SC ACHS [facility] PRN Reason: Protocol Last Admin: 11/04/16 13:54 Dose: 1 unit Lidocaine (Lidoderm) 1 ea TD DAILY [facility] Last Admin: 11/04/16 10:29 Dose: 1 ea Metoclopramide HCl (Reglan) 5 mg PO 0600,1130,1630,2200 [facility] Last Admin: 11/04/16 10:30 Dose: 5 mg Minoxidil (Minoxidil) 2.5 mg PO DAILY [facility] Nifedipine (Procardia Xl) 90 mg PO DAILY [facility] Last Admin: 11/04/16 10:28 Dose: 90 mg Pantoprazole Sodium (Protonix Ec Tab) 40 mg PO DAILY [facility] Last Admin: 11/04/16 10:28 Dose: 40 mg Rosuvastatin Calcium (Crestor) 2.5 mg PO HS [facility] Last Admin: 11/03/16 22:15 Dose: 2.5 mg Timolol Maleate (Timoptic 0.25% Ophth Soln) 1 drop OD BID [facility] Last Admin: 11/04/16 10:29 Dose: 1 drop Vitamin B Complex/Vit C/Folic Acid (Nephro-Anjelica) 1 tab PO 0800 [facility] - Labs Labs: 11/04/16 06:20 11/04/16 06:20 PT 12.6 SECONDS (9.7-12.2) H 10/26/16 23:07 INR 1.1 10/26/16 23:07 APTT 36 SECONDS (21-34) H 10/26/16 23:07
--- NOTE | 2016-11-04 21:24 | CP.PCM.PN ---
Subjective - Date & Time of Evaluation Date of Evaluation: 11/04/16 Time of Evaluation: 09:00 - Subjective Subjective: General sx progress note for Dr. Stef Palm, PGY-1 Pt S & E at bedside this AM. Pt reports diaphoresis overnight, L breast pain overnight, emesis x 2 after saline infused into PICC line, nausea. Denies F/C, SOB, CP. Objective - Vital Signs/Intake and Output Vital Signs (last 24 hours): Temp Pulse Resp BP Pulse Ox 98.3 F 75 18 181/89 H 99 11/04/16 07:20 11/04/16 10:26 11/04/16 07:20 11/04/16 10:28 11/04/16 07:20 - Medications Medications: Current Medications Acetaminophen (Tylenol 325mg Tab) 650 mg PO Q4 PRN PRN Reason: Fever >100.4 F Calcium Acetate (Phoslo) 667 mg PO TIDCC [facility] Last Admin: 11/04/16 13:53 Dose: 667 mg Carvedilol (Coreg) 25 mg PO BID [facility] Last Admin: 11/04/16 10:28 Dose: 25 mg Clonidine HCl (Catapres-Tts3 0.3 Mg/24 Hr) 1 patch TD Q7D@1000 [facility] Last Admin: 11/03/16 18:59 Dose: 1 patch Diphenhydramine HCl (Benadryl) 25 mg PO Q8 PRN PRN Reason: Itching / Pruritus Last Admin: 11/02/16 00:42 Dose: 25 mg Epoetin Cornelius (Procrit) 10,000 [place] [facility] [place] Fentanyl (Duragesic) 1 patch TD Q72H [facility] Last Admin: 11/03/16 18:59 Dose: 1 patch Ferric Sodium Gluconate Complex (Ferrlecit) 125 mg [place] [facility] [place] Stop: 11/09/16 09:01 Last Admin: 11/03/16 15:07 Dose: 125 mg Gabapentin (Neurontin) 100 mg PO TID [facility] Last Admin: 11/04/16 13:53 Dose: 100 mg Hydralazine HCl (Apresoline) 100 mg PO Q8 [facility] Last Admin: 11/04/16 13:53 Dose: 100 mg Hydromorphone HCl (Dilaudid) 1 mg IVP Q3H PRN PRN Reason: Pain, moderate (4-7) Last Admin: 11/04/16 14:18 Dose: 1 mg Vancomycin HCl 500 mg/ Sodium (Chloride) 100 mls @ 100 mls/hr IVPB MWF [facility] Last Admin: 11/03/16 18:43 Dose: 100 mls/hr Insulin Aspart (Novolog) 0 unit SC ACHS [facility] PRN Reason: Protocol Last Admin: 11/04/16 13:54 Dose: 1 unit Lidocaine (Lidoderm) 1 ea TD DAILY [facility] Last Admin: 11/04/16 10:29 Dose: 1 ea Metoclopramide HCl (Reglan) 5 mg PO 0600,1130,1630,2200 [facility] Last Admin: 11/04/16 10:30 Dose: 5 mg Minoxidil (Minoxidil) 2.5 mg PO DAILY [facility] Nifedipine (Procardia Xl) 90 mg PO DAILY [facility] Last Admin: 11/04/16 10:28 Dose: 90 mg Pantoprazole Sodium (Protonix Ec Tab) 40 mg PO DAILY [facility] Last Admin: 11/04/16 10:28 Dose: 40 mg Rosuvastatin Calcium (Crestor) 2.5 mg PO HS [facility] Last Admin: 11/03/16 22:15 Dose: 2.5 mg Timolol Maleate (Timoptic 0.25% Oph Soln) 1 drop OD BID [facility] Last Admin: 11/04/16 10:29 Dose: 1 drop Vitamin B Complex/Vit C/Folic Acid (Nephro-Anjelica) 1 tab PO 0800 [facility] - Labs Labs: 11/04/16 06:20 11/04/16 06:20 PT 12.6 SECONDS (9.7-12.2) H 10/26/16 23:07 INR 1.1 10/26/16 23:07 APTT 36 SECONDS (21-34) H 10/26/16 23:07 - Constitutional Appears: Non-toxic, No Acute Distress - Head Exam Head Exam: ATRAUMATIC, NORMAL INSPECTION, NORMOCEPHALIC - Eye Exam Eye Exam: EOMI, Normal appearance - ENT Exam ENT Exam: Mucous Membranes Moist, Normal Exam - Neck Exam Neck Exam: Full ROM, Normal Inspection - Respiratory Exam Respiratory Exam: Clear to Ausculation Bilateral, NORMAL BREATHING PATTERN. absent: Rales, Rhonchi, Wheezes, Respiratory Distress - Cardiovascular Exam Cardiovascular Exam: REGULAR RHYTHM, +S1, +S2 - GI/Abdominal Exam GI & Abdominal Exam: Soft, Normal Bowel Sounds. absent: Tenderness - Neurological Exam Neurological Exam: Alert, Awake, CN II-XII Intact, Oriented x3 - Psychiatric Exam Psychiatric exam: Normal Affect, Normal Mood - Skin Skin Exam: Dry, Normal Color, Warm. absent: Intact Additional comments: Left breast with TTP over lateral aspect, small I & D site in lower outer quadrant with packing in place, dressing with serosanginous strike through. Assessment and Plan - Assessment and Plan (Free Text) Assessment: 41F POD #2 L breast I & D 2/2 abscess and mastitis. Pt with pain controlled overnight. Plan: POD #2 s/p L breast I & D 2/2 abscess -Cont dressing and packing changes daily with premedication -Cont pain mgmt -Cont IV ABx DW attending Arpita PGY-1
--- NOTE | 2016-11-04 21:59 | CP.PCM.DIS ---
Provider - Provider Date of Admission: 10/27/16 01:18 Attending physician: Sal Gamez MD Time Spent in preparation of Discharge (in minutes): 45 Diagnosis - Discharge Diagnosis (1) Ulcer of right heel Status: Acute (2) DM2 (diabetes mellitus, type 2) Status: Chronic (3) ESRD (end stage renal disease) on dialysis Status: Chronic (4) Hypertension Status: Chronic (5) Mastitis of left breast unrelated to or Status: Acute Hospital Course - Lab Results Lab Results: Micro Results 11/02/16 Unknown Breast - Left Gram Stain - Final 11/02/16 Unknown Breast - Left Wound Culture - Preliminary NO GROWTH AFTER 24 HOURS Most Recent Lab Values WBC 9.3 K/uL (4.8-10.8) 11/04/16 06:20 RBC 2.63 Mil/uL (3.80-5.20) L 11/04/16 06:20 Hgb 8.6 g/dL (11.0-16.0) L 11/04/16 06:20 Hct 26.5 % (34.0-47.0) L 11/04/16 06:20 MCV 100.9 fL (81.0-99.0) H 11/04/16 06:20 MCH 32.6 pg (27.0-31.0) H 11/04/16 06:20 MCHC 32.3 g/dL (33.0-37.0) L 11/04/16 06:20 RDW 22.8 % (11.5-14.5) H 11/04/16 06:20 Plt Count 159 K/uL (130-400) 11/04/16 06:20 MPV 8.6 fL (7.2-11.7) 11/04/16 06:20 Neut % (Auto) 67.2 % (50.0-75.0) 11/04/16 06:20 Lymph % (Auto) 10.5 % (20.0-40.0) L 11/04/16 06:20 [place] % (Auto) 9.4 % (0.0-10.0) 11/04/16 06:20 Eos % (Auto) 12.2 % (0.0-4.0) H 11/04/16 06:20 Baso % (Auto) 0.7 % (0.0-2.0) 11/04/16 06:20 Neut # 6.2 K/uL (1.8-7.0) 11/04/16 06:20 Lymph # 1.0 K/uL (1.0-4.3) 11/04/16 06:20 [place] # 0.9 K/uL (0.0-0.8) H 11/04/16 06:20 Eos # 1.1 K/uL (0.0-0.7) H 11/04/16 06:20 Baso # 0.1 K/uL (0.0-0.2) 11/04/16 06:20 PT 12.6 SECONDS (9.7-12.2) H 10/26/16 23:07 INR 1.1 10/26/16 23:07 APTT 36 SECONDS (21-34) H 10/26/16 23:07 pO2 150 mm/Hg (30-55) H 10/26/16 23:30 VBG pH 7.57 (7.32-7.43) H 10/26/16 23:30 VBG pCO2 30 mmHg (40-60) L 10/26/16 23:30 VBG HCO3 29.6 mmol/L 10/26/16 23:30 VBG Total CO2 28.4 mmol/L (22-28) H 10/26/16 23:30 VBG O2 Sat (Calc) 97.3 % (40-65) H 10/26/16 23:30 VBG Base Excess 5.9 mmol/L (0.0-2.0) H 10/26/16 23:30 VBG Potassium 5.7 mmol/L (3.6-5.2) H 10/26/16 23:30 Sodium 142.0 mmol/l (132-148) 10/26/16 23:30 Chloride 110.0 mmol/L (98-107) H 10/26/16 23:30 Glucose 70 mg/dl (65-105) 10/26/16 23:30 Lactate 1.1 mmol/L (0.7-2.1) 10/26/16 23:30 Sodium 139 mmol/L (132-148) 11/04/16 06:20 Potassium 5.3 mmol/L (3.6-5.2) H 11/04/16 06:20 Chloride 96 mmol/L (98-107) L 11/04/16 06:20 Carbon Dioxide 28 mmol/L (22-30) 11/04/16 06:20 Anion Gap 20 (10-20) 11/04/16 06:20 BUN 51 mg/dL (7-17) H 11/04/16 06:20 Creatinine 6.1 MG/DL (0.7-1.2) H 11/04/16 06:20 Est GFR ( Amer) 9 11/04/16 06:20 Est GFR (Non-Af Amer) 8 11/04/16 06:20 POC Glucose (mg/dL) 177 mg/dL (65-110) H 11/04/16 16:08 Random Glucose 89 mg/dL (65-105) 11/04/16 06:20 Calcium 8.7 mg/dl (8.6-10.4) 11/04/16 06:20 Total Bilirubin 0.7 mg/dL (0.2-1.3) 11/04/16 06:20 AST 27 U/L (14-36) 11/04/16 06:20 ALT 34 U/L (9-52) 11/04/16 06:20 Alkaline Phosphatase 136 U/L (38-126) H 11/04/16 06:20 NT-Pro-B Natriuret Pep 16830 pg/mL (0-450) H 11/03/16 14:46 Total Protein 7.3 g/dL (6.3-8.3) 11/04/16 06:20 Albumin 3.7 g/dL (3.5-5.0) 11/04/16 06:20 Globulin 3.6 gm/dL (2.2-3.9) 11/04/16 06:20 Albumin/Globulin Ratio 1.0 (1.0-2.1) 11/04/16 06:20 Vitamin B12 465 pg/mL (239-931) 10/31/16 06:37 Folate 14.1 ng/mL 10/31/16 06:37 Prolactin 240.9 ng/mL (3.0-18.9) H 10/31/16 06:37 Beta HCG, Quant < 2.39 mIU/ML 11/02/16 07:29 Venous Blood Potassium 5.7 mmol/L (3.6-5.2) H 10/26/16 23:30 Urine HCG, Qual Negative (NEGATIVE) 11/02/16 04:11 Serum Ketones Negative (NEGATIVE) 10/26/16 23:07 Hepatitis A IgM Ab Negative (NEGATIVE) 10/27/16 19:04 Hep Bs Antigen Negative (NEGATIVE) 10/27/16 19:04 Hep B Core IgM Ab Negative (NEGATIVE) 10/27/16 19:04 Hepatitis C Antibody Negative (NEGATIVE) 10/27/16 19:04 - Hospital Course Hospital Course: SHE WAS TARTED ON ANTIBIOTICS AND SHE DIDN'T IMPROVE AND SHE I=UNDERWENT I AND OF L BREAST MASS, AND SHE IS FRO DISCHARGE Discharge Exam - Head Exam Head Exam: ATRAUMATIC, NORMAL INSPECTION, NORMOCEPHALIC - Eye Exam Eye Exam: EOMI, Normal appearance (PALLOR) Pupil Exam: NORMAL ACCOMODATION - ENT Exam ENT Exam: Normal Exam, TM's Normal Bilaterally - Neck Exam Neck exam: Normal Inspection - Respiratory Exam Respiratory Exam: Clear to PA & Lateral, NORMAL BREATHING PATTERN - Cardiovascular Exam Cardiovascular Exam: REGULAR RHYTHM, +S1, +S2, +S4 - GI/Abdominal Exam GI & Abdominal Exam: Normal Bowel Sounds - Rectal Exam Rectal Exam: NORMAL INSPECTION - Skin Skin Exam: Normal Color (L BREAST WOUND POST OP) Discharge Plan - Discharge Medications Prescriptions: Cefepime 1gm in NS 100ml [Maxipime 1gm] 1 gm IVPB MWF #9 bag - Follow Up Plan Condition: FAIR Disposition: REHAB FACILITY/REHAB UNIT Additional Instructions: Please admit patient under Dr Gamez's services while she is at [facility], Please call MD upon arrival with bed assignment and admission order, pt will continue HD as schedule, Discharge pt with PICC, IV Vanco M/W/F and IV cefepime M/W/F for 3 more weeks, repeat vanco level, cbc, cmp every week. Apply xeroform dry dsg left foot, inlay shoes with AFO to of load heel, call Dr pacheco if any further questions or concern. Referrals: Sal Gamez MD [Staff Provider] - Robert Roque MD [Staff Provider] - Rajinder Valdez MD [Staff Provider] - Huan Bran DPM [Staff Provider] -
[2016-11-05] MEDS ORDERED: Multivitamin Vitamin B Complex (Nephro-Vite) Tab PO SCH (08:00)
[2016-11-06] MEDS ORDERED: Epoetin Alfa 10,000 unit/ml Dialysis IV SCH (06:00)
--- NOTE | 2016-11-21 14:35 | PCM.OP ---
Operative Report - Operative Report Date of Surgery/Procedure: 11/02/16 Time of Surgery/Procedure: 13:00 Surgeon: Rajinder Valdez MD. Shim Plug Cutter: Alex Haro MD Anesthesia/Sedation: Local anesthesia with monitored sedation Pre-Operative Diagnosis: 1. Left breast cellulitis and abscess. 2. Rule out inflammatory breast cancer Post-Operative Diagnosis: 1. Left breast cellulitis and abscess. 2. Rule out inflammatory breast cancer. Indication for Surgery: 1. Left breast cellulitis and abscess. 2. Rule out inflammatory breast cancer Operative Findings: Patient had a left breast cellulitis with abscess and extremely inflamed lower breast skin. Procedure/Operation Description: 1. Incision and drainage of left breast abscess. 2. Breast skin biopsy, 2 cm x 2 cm. 41 y/o female who was diagnosed with left breast cellulitis and continues on antibiotics. Patient did not improve. Patient consented for the left breast incision and drainage, as well as skin biopsy. Brought to the OR, placed supine on operating table. After induction of anesthesia, the left breast was prepped and draped and local anesthesia was injected. The first aspiration of the left breast abscess was done, and the cruciate incision was made, and the abscess was drained. The cavity was debrided and packed with packing. The lower part of the skin was excised for pathology to rule out inflammatory breast cancer. The hemostasis was achieved. The wound was covered with dry, sterile dressing. The patient was sent to the post-anesthesia care unit. Count of sterile gauze was correct. There were no operative complications. Estimated Blood Loss: 10 Complications: None Discharge & Condition: stable
== END 2016-11-04 18:40 | DRG 584 ==
LOC: C.ER 20:56 → C.6T 10-27 01:18
PROVIDERS: ADMIT Internal Medicine; ATTEND Internal Medicine
PROC: 5A1D60Z (ICD-10-PCS; 2016-10-27)
PROC: 0HBU0ZX Excision of Left Breast, Open Approach, Diagnostic (ICD-10-PCS; 2016-11-02)
PROC: 0H9U0ZZ Drainage of Left Breast, Open Approach (ICD-10-PCS; principal; 2016-11-02 12:30)
PROC: 02PY33Z Removal of Infusion Device from Great Vessel, Percutaneous Approach (ICD-10-PCS; 2016-11-03)
PROC: 02HV33Z Insertion of Infusion Device into Superior Vena Cava, Percutaneous Approach (ICD-10-PCS; 2016-11-03)
DX: N61.1 Abscess of the breast and nipple (principal); N18.6 End stage renal disease; T82.524A Displacement of infusion catheter, initial encounter; I12.0 Hypertensive chronic kidney disease with stage 5 chronic kidney disease or end stage renal disease; M86.8X7 Other osteomyelitis, ankle and foot; L97.419 Non-pressure chronic ulcer of right heel and midfoot with unspecified severity; E11.22 Type 2 diabetes mellitus with diabetic chronic kidney disease; K31.84 Gastroparesis; E11.43 Type 2 diabetes mellitus with diabetic autonomic (poly)neuropathy; E11.621 Type 2 diabetes mellitus with foot ulcer; E87.70 Fluid overload, unspecified; E11.69 Type 2 diabetes mellitus with other specified complication; G89.29 Other chronic pain; M54.9 Dorsalgia, unspecified; D64.9 Anemia, unspecified; Y71.2 Prosthetic and other implants, materials and accessory cardiovascular devices associated with adverse incidents; Z99.2 Dependence on renal dialysis; Z79.4 Long term (current) use of insulin; Z87.891 Personal history of nicotine dependence; Z89.421 Acquired absence of other right toe(s)

== ENCOUNTER 2017-01-11 17:30 | Inpatient (IN) | payer MEDICARE, OTHER ==
[2017-01-11 17:38] VITALS: BMI 28.2
[2017-01-11] MEDS ORDERED: DiphenhydrAMINE 50 mg/ml Inj IVP STA (17:47)
[2017-01-11] MEDS ORDERED: DiphenhydrAMINE 50 mg/ml Inj ONE (17:56)
[2017-01-11] MEDS ORDERED: HYDROmorphone 1 mg/ml ISec ONE (17:56)
--- NOTE | 2017-01-11 18:02 | C.PDOC ---
History Of Present Illness <Paris Griffin - Last Filed: 01/11/17 19:04> <Irvin Russ - Last Filed: 01/11/17 23:22> 41 year old female whose PMH includes ESRD on HD (M,W,F), HTN, and IDDM was referred to the ED by dialysis center for evaluation of high potassium levels. As per patient, she had dialysis yesterday and they capri blood. Today they called and reported potassium was "8.6." She also complains of wound to bottom of her left foot that causes pain to shoot up her leg. She reports she had visiting wound nurse change dressing today. Patient denies chest pain, fever, shortness of breath, palpitations. (Paris Griffin) History Per: Patient History/Exam Limitations: no limitations Onset/Duration Of Symptoms: Intermittent Episodes Current Symptoms Are (Timing): Still Present Reports Recently: Seen In ED Recent travel outside of the [place]: No Additional History Per: Prior Records (ED and dialysis ) <Paris Griffin - Last Filed: 01/11/17 19:04> <Irvin Russ - Last Filed: 01/11/17 23:22> Time Seen by Provider: 01/11/17 17:34 Chief Complaint (Nursing): Abnormal Labs Past Medical History Reviewed: Historical Data, Nursing Documentation, Vital Signs - Medical History PMH: Anemia, Depression, Diabetes, Gastritis (diabetic gastroparesis), HTN, Hypercholesterolemia, Pneumonia, End Stage Renal Disease (Dialysis M-W-F), Chronic Kidney Disease Surgical History: Cholecystectomy (2010) Family History: States: Diabetes - Social History Hx Tobacco Use: No Hx Alcohol Use: No Hx Substance Use: No - Immunization History Hx Tetanus Toxoid Vaccination: Yes Hx Influenza Vaccination: Yes Hx Pneumococcal Vaccination: Yes <Paris Griffin - Last Filed: 01/11/17 19:04> Review Of Systems Constitutional: Negative for: Fever, Chills Cardiovascular: Negative for: Chest Pain, Palpitations Respiratory: Negative for: Cough, Shortness of Breath Gastrointestinal: Negative for: Nausea, Vomiting, Abdominal Pain, Diarrhea Musculoskeletal: Positive for: Foot Pain (left foot pain ) Neurological: Negative for: Weakness, Numbness <Paris Griffin - Last Filed: 01/11/17 19:04> Physical Exam - Physical Exam Appears: Non-toxic, No Acute Distress Skin: Warm, Dry Head: Atraumatic, Normacephalic Eye(s): bilateral: Normal Inspection Oral Mucosa: Moist Neck: Supple Chest: Symmetrical, No Deformity Cardiovascular: Rhythm Regular, No Murmur Respiratory: Normal Breath Sounds, No Rales, No Rhonchi, No Wheezing Gastrointestinal/Abdominal: Soft, No Tenderness, No Distention, No Guarding, No Rebound Extremity: No Calf Tenderness, Capillary Refill (good capillary refill, less than two seconds ), No Deformity, No Swelling, Other (superficial ulcer to left heel, no discharge, no erythema, no foul odor. Patient has shunt in left arm. ) Neurological/Psych: Oriented x3, Normal Speech <Paris Griffin - Last Filed: 01/11/17 19:04> ED Course And Treatment - Laboratory Results Result Diagrams: 01/11/17 18:13 Lab Interpretation: No Acute Changes ECG: Interpreted By Me, Viewed By Me ECG Rhythm: Sinus Rhythm ECG Interpretation: No Acute Changes, No Changes From Prior (10/19/16) Interpretation Of ECG: NS at 73 bpm with RAD, and peaked Twave in v2 Rate From EC (bpm) O2 Sat by Pulse Oximetry: 97 (room air ) Progress Note: EKG, UA, and blood work were ordered. Patient was given Benadryl and Dilaudid. <Paris Griffin - Last Filed: 01/11/17 19:04> - Laboratory Results Result Diagrams: 01/11/17 18:13 01/11/17 21:38 <Irvin Russ - Last Filed: 01/11/17 23:22> Medical Decision Making <Paris Griffin - Last Filed: 01/11/17 19:04> <Irvin Russ - Last Filed: 01/11/17 23:22> Medical Decision Making: Prior records reviewed: patient was last admitted 10/27/16 for mastitis and foot ulcer, discharged 11/04/16 Plan: * EKG * Labs * Meds Progress: 1829 CBC results reviewed, lab calls stating CMP was hemolyzed 0 Case signed out to Dr Russ pending, labs reeval and dispo (Paris Griffin) ED OBSERVATION <Paris Griffin - Last Filed: 01/11/17 19:04> Date of observation admission: 01/11/17 Time of observation admission: 19:00 <Irvin Russ - Last Filed: 01/11/17 23:22> - Observation admission statement Patient is being placed in observation because:: pending labs, 1st set hemolyzed. (Irvin Russ) - Goals of Observation Goals of observation are:: observation while awaiting labs (Irvin Russ) - Progress Note Progress Note: 1900 Awaiting labs. Patient in no acute distress. 2100 Awaiting labs. 2nd set was hemolyzed again. Patient in no acute distress. 2229 Potassium 7.1. Patient in no acute distress. Dr. Gamez recommends ICU consultation. Albuterol, Sodium bicarb, insulin, dextrose, calcium ordered. Dr. Orellana consulted, will give orders to manager presentation nursing education consultant. 2320 Accepted for ICU admission. (Irvin Russ) Disposition - Disposition Disposition Time: 19:05 - POA Present On Arrival: None <Paris Griffin - Last Filed: 01/11/17 19:04> <Irvin Russ - Last Filed: 01/11/17 23:22> - Disposition Disposition: HOSPITALIZED Condition: FAIR - Clinical Impression Clinical Impression: Hyperkalemia, Electrocardiogram abnormal - Scribe Statement The provider has reviewed the documentation as recorded by the Scribe <Paris Griffin - Last Filed: 01/11/17 19:04> <Irvin Russ - Last Filed: 01/11/17 23:22> - Scribe Statement Magui Knowles All medical record entries made by the Scribe were at my direction and personally dictated by me. I have reviewed the chart and agree that the record accurately reflects my personal performance of the history, physical exam, medical decision making, and the department course for this patient. I have also personally directed, reviewed, and agree with the discharge instructions and disposition. (Paris Griffin) Physician Patient Turnover Patient Signed Over To: Irvin Russ Handoff Comments: pending labs, reeval and dispo <Paris Griffin - Last Filed: 01/11/17 19:04>
[2017-01-11 18:18] LABS: BASO # 0.1 K/uL (0.0-0.2); BASO % 1.1 % (0.0-2.0); EOS % 10.7 % (0.0-4.0); HEMATOCRIT 39.9 % (34.0-47.0); LYMPH # 1.1 K/uL (1.0-4.3); LYMPH % 11.6 % (20.0-40.0); MEAN CELL VOLUME 94.5 fL (81.0-99.0); MEAN CORPUSCULAR HEMOGLOBIN 31.4 pg (27.0-31.0); MEAN CORPUSCULAR HGB CONC 33.3 g/dL (33.0-37.0); MEAN PLATELET VOLUME 8.8 fL (7.2-11.7); MONO # 0.8 K/uL (0.0-0.8); RED CELL DISTRIBUTION WIDTH 15.2 % (11.5-14.5); WHITE BLOOD COUNT 9.6 K/uL (4.8-10.8)
[2017-01-11 21:54] LABS: BILIRUBIN,TOTAL 0.6 mg/dL (0.2-1.3); POTASSIUM 7.1 mmol/L (3.6-5.2)
[2017-01-11 21:55] LABS: ALB/GLOB RATIO 1.1 (1.0-2.1); CALCIUM 8.7 mg/dl (8.6-10.4); TOTAL PROTEIN 8.4 g/dL (6.3-8.3)
[2017-01-11] MEDS ORDERED: Sodium Bicarbonate (8.4%) 50 Meq Syringe IVP ONE (22:08)
[2017-01-11] MEDS ORDERED: Albuterol-Ipratrop 3 mg / 0.5 (3 ml) UD IH STA (22:08)
[2017-01-11] MEDS ORDERED: Dextrose 50% SYRINGE Inj (50 ml) IV STA (22:09)
[2017-01-11] MEDS ORDERED: (Novolin R) Insulin Human Regular 100 units/ml vial IV ONE (22:09)
[2017-01-11] MEDS ORDERED: Sodium Bicarbonate (8.4%) 50 Meq Syringe ONE (22:17)
[2017-01-11] MEDS ORDERED: Dextrose 50% SYRINGE Inj (50 ml) ONE (22:17)
[2017-01-11] MEDS ORDERED: (Novolin R) Insulin Human Regular 100 units/ml vial ONE (22:18)
[2017-01-11] MEDS ORDERED: Calcium Gluconate 4.65 mEq/10 ml Inj IVP ONE (22:20)
[2017-01-11] MEDS ORDERED: Albuterol-Ipratrop 3 mg / 0.5 (3 ml) UD ONE (22:22)
[2017-01-11] MEDS ORDERED: Calcium Gluconate 4.65 mEq/10 ml Inj ONE (22:53)
[2017-01-12 06:42] LABS: ALB/GLOB RATIO 1.1 (1.0-2.1); BILIRUBIN,TOTAL 0.6 mg/dL (0.2-1.3); CALCIUM 8.9 mg/dl (8.6-10.4); POTASSIUM 3.2 mmol/L (3.6-5.2)
[2017-01-12] MEDS ORDERED: Labetalol 25mg/5ml Syringe IVP STA (08:29)
[2017-01-12] MEDS: Pantoprazole 40 mg EC Tab PO SCH (09:22)
[2017-01-12] MEDS: NIFEdipine 90 mg ER Tab PO SCH (09:24)
--- NOTE | 2017-01-12 11:01 | CP.PCM.CON ---
History of Present Illness - History of Present Illness History of Present Illness: 41 y/o female wth ESRD on maintenance HD, MWF, HTN,IDDM with complications was sent to ER yesterday because her K+ level drawn on 01/10/17 was 8.6. Pt had dialysis on 01/10/17 using 2K+ bath. In ER last night K+ was found to be 7.1 An urgent dialysis was given last night Past Patient History - Infectious Disease Hx of Infectious Diseases: None - Past Medical History & Family History Past Medical History?: Yes - Past Social History Smoking Status: Never Smoked - CARDIAC Hx Hypercholesterolemia: Yes Hx Hypertension: Yes - PULMONARY Hx Pneumonia: Yes - HEENT Hx HEENT Problems: Yes Hx Cataracts: Yes (09/23/14 left) - RENAL Hx Chronic Kidney Disease: Yes Hx Dialysis: Yes Type of Dialysis Access: left arm av shunt Date of Last Dialysis Treatment: 01/10/17 - ENDOCRINE/METABOLIC Hx Endocrine Disorders: Yes Hx Diabetes Mellitus Type 2: Yes - HEMATOLOGICAL/ONCOLOGICAL Hx Anemia: Yes - INTEGUMENTARY Other/Comment: right great toe amputation 2009 - MUSCULOSKELETAL/RHEUMATOLOGICAL Hx Falls: Yes - GASTROINTESTINAL Hx Gastritis: Yes (diabetic gastroparesis) - GENITOURINARY/GYNECOLOGICAL Hx Genitourinary Disorders: Yes Other/Comment: renal failure - PSYCHIATRIC Hx Depression: Yes Hx Substance Use: No - SURGICAL HISTORY Hx Cholecystectomy: Yes (2010) - ANESTHESIA Hx Anesthesia: Yes Hx Anesthesia Reactions: No Hx Malignant Hyperthermia: No Meds Allergies/Adverse Reactions: Allergies Allergy/AdvReac Type Severity Reaction Status Date / Time ketorolac tromethamine Allergy Verified 01/11/17 17:38 [From Toradol] morphine Allergy Verified 01/11/17 17:38 tramadol Allergy RASH Verified 01/11/17 17:38 - Medications Medications: Current Medications Calcium Acetate (Phoslo) 667 mg PO TID [facility] Last Admin: 01/12/17 09:22 Dose: 667 mg Carvedilol (Coreg) 25 mg PO BID [facility] Last Admin: 01/12/17 09:22 Dose: 25 mg Clonidine HCl (Catapres) 0.2 mg PO BID [facility] Last Admin: 01/12/17 09:22 Dose: 0.2 mg Heparin Sodium (Porcine) (Heparin) 5,000 units SC Q8 [facility] Last Admin: 01/12/17 05:58 Dose: Not Given Hydralazine HCl (Apresoline) 50 mg PO BID [facility] Last Admin: 01/12/17 09:22 Dose: 50 mg Hydromorphone HCl (Dilaudid) 2 mg PO Q6H [facility] Last Admin: 01/12/17 06:03 Dose: Not Given Metoclopramide HCl (Reglan) 10 mg PO TID [facility] Last Admin: 01/12/17 09:22 Dose: 10 mg Nifedipine (Procardia Xl) 90 mg PO DAILY [facility] Last Admin: 01/12/17 09:24 Dose: 90 mg Pantoprazole Sodium (Protonix Ec Tab) 40 mg PO DAILY [facility] Last Admin: 01/12/17 09:22 Dose: 40 mg Physical Exam - Constitutional Appears: No Acute Distress - Head Exam Head Exam: ATRAUMATIC - Eye Exam Additional comments: Conjunctivae pink sclera anicteric - ENT Exam ENT Exam: Mucous Membranes Moist - Neck Exam Additional comments: JVD negative - Respiratory Exam Respiratory Exam: NORMAL BREATHING PATTERN Additional comments: Lungs clear - Cardiovascular Exam Cardiovascular Exam: REGULAR RHYTHM Additional comments: NSR 72/min - Extremities Exam Additional comments: No edema Results - Vital Signs Recent Vital Signs: Last Vital Signs Temp 97.4 F L 01/12/17 08:00 Pulse 86 01/12/17 09:17 Resp 11 L 01/12/17 09:17 BP 177/77 H 01/12/17 09:22 Pulse Ox 99 01/12/17 09:17 - Labs Result Diagrams: 01/11/17 18:13 01/12/17 06:20 Labs: Laboratory Results - last 24 hr 01/11/17 01/12/17 01/12/17 23:43 00:16 06:20 Sodium 142 Potassium 3.2 L Chloride 95 L Carbon Dioxide 28 Anion Gap 22 H BUN 27 H Creatinine 4.1 H Est GFR ( Amer) 15 Est GFR (Non-Af Amer) 12 POC Glucose (mg/dL) 118 H 287 H Random Glucose 48 L Calcium 8.9 Total Bilirubin 0.6 AST 38 H D ALT 31 Alkaline Phosphatase 196 H Total Protein 8.0 Albumin 4.2 Globulin 3.8 Albumin/Globulin Ratio 1.1 01/12/17 01/12/17 07:26 08:07 Sodium Potassium Chloride Carbon Dioxide Anion Gap BUN Creatinine Est GFR ( Amer) Est GFR (Non-Af Amer) POC Glucose (mg/dL) 44 L 70 Random Glucose Calcium Total Bilirubin AST ALT Alkaline Phosphatase Total Protein Albumin Globulin Albumin/Globulin Ratio Assessment & Plan - Assessment and Plan (Free Text) Assessment: ESRD Severe hyperkalemia HTN IDDM Plan: K+ this morning is 3.2. Finished dialysis early this morning Will schedule dialysis tomorrow then MWF Renal diet consultation with Digital Associate Media Director for low K+ diet Pt is not on ACEI or ARBS
--- NOTE | 2017-01-12 18:43 | CARD ---
APPROVED REPORT EKG Measurement Heart [id number] <Conclusion> Normal sinus rhythm Right superior axis deviation Poor R wave progression. Nonspecific ST/T abnormality. Abnormal Electrocardiogram
--- NOTE | 2017-01-12 19:32 | CP.CCUPN ---
CCU Subjective - Physician Review Subjective (Free Text): Patient seen and examined at bedside while she was eating her lunch. Patient complaints of b/l leg pain which she's had in the past but is especially bothering her now. Denies all other questions on ROS prompts. 01/12/17 19:32 CCU Objective - Vital Signs / Intake & Output Vital Signs (Last 4 hours): Vital Signs BP 01/12/17 18:10 148/79 Intake and Output (Last 8hrs): Intake & Output 01/12/17 01/12/17 01/12/17 06:59 14:59 22:59 Intake Total 50 120 Output Total 0 0 Balance 50 120 Intake: Oral 50 120 Output: Urine 0 0 Urine, Voided 0 0 Other: # Bowel Movements 1 1 - Physical Exam Head: Positive for: Atraumatic, Normocephalic Pupils: Positive for: PERRL Extroacular Muscles: Positive for: EOMI Respiratory/Chest: Positive for: Clear to Auscultation. Negative for: Wheezes Cardiovascular: Positive for: Other (jvd negative) Lower Extremity: Negative for: Edema - Medications Active Medications: Active Medications Generic Name Dose Route Start Last Admin Trade Name Freq PRN Reason Stop Dose Admin Calcium Acetate 667 mg 01/12/17 10:00 01/12/17 18:10 Phoslo PO 667 mg TID CLEMENTINE Administration Carvedilol 25 mg 01/11/17 23:45 01/12/17 18:10 Coreg PO 25 mg BID CLEMENTINE Administration Clonidine HCl 0.2 mg 01/11/17 23:30 01/12/17 18:09 Catapres PO 0.2 mg BID CLEMENTINE Administration Heparin Sodium (Porcine) 5,000 units 01/12/17 06:00 01/12/17 18:08 Heparin SC 5,000 units Q8 CLEMENTINE Administration Hydralazine HCl 50 mg 01/12/17 10:00 01/12/17 18:09 Apresoline PO 50 mg BID CLEMENTINE Administration Hydromorphone HCl 2 mg 01/11/17 23:45 01/12/17 18:09 Dilaudid PO 2 mg Q6H CLEMENTINE Administration Metoclopramide HCl 10 mg 01/12/17 10:00 01/12/17 18:12 Reglan PO 10 mg TID CLEMENTINE Administration Nifedipine 90 mg 01/12/17 10:00 01/12/17 09:24 Procardia Xl PO 90 mg DAILY CLEMENTINE Administration Pantoprazole Sodium 40 mg 01/12/17 10:00 01/12/17 09:22 Protonix Ec Tab PO 40 mg DAILY CLEMENTINE Administration - Patient Studies Lab Studies: Lab Studies 01/12/17 01/12/17 01/12/17 Range/Units 16:56 11:07 08:07 Sodium (132-148) mmol/L Potassium (3.6-5.2) mmol/L Chloride (98-107) mmol/L Carbon Dioxide (22-30) mmol/L Anion Gap (10-20) BUN (7-17) mg/dL Creatinine (0.7-1.2) MG/DL Est GFR ( Amer) Est GFR (Non-Af Amer) POC Glucose (mg/dL) 140 H 81 70 (65-110) mg/dL Random Glucose (65-105) mg/dL Calcium (8.6-10.4) mg/dl Total Bilirubin (0.2-1.3) mg/dL AST (14-36) U/L ALT (9-52) U/L Alkaline Phosphatase (38-126) U/L Total Protein (6.3-8.3) g/dL Albumin (3.5-5.0) g/dL Globulin (2.2-3.9) gm/dL Albumin/Globulin Ratio (1.0-2.1) 01/12/17 01/12/17 01/12/17 Range/Units 07:26 06:20 00:16 Sodium 142 (132-148) mmol/L Potassium 3.2 L (3.6-5.2) mmol/L Chloride 95 L (98-107) mmol/L Carbon Dioxide 28 (22-30) mmol/L Anion Gap 22 H (10-20) BUN 27 H (7-17) mg/dL Creatinine 4.1 H (0.7-1.2) MG/DL Est GFR ( Amer) 15 Est GFR (Non-Af Amer) 12 POC Glucose (mg/dL) 44 L 287 H (65-110) mg/dL Random Glucose 48 L (65-105) mg/dL Calcium 8.9 (8.6-10.4) mg/dl Total Bilirubin 0.6 (0.2-1.3) mg/dL AST 38 H D (14-36) U/L ALT 31 (9-52) U/L Alkaline Phosphatase 196 H (38-126) U/L Total Protein 8.0 (6.3-8.3) g/dL Albumin 4.2 (3.5-5.0) g/dL Globulin 3.8 (2.2-3.9) gm/dL Albumin/Globulin Ratio 1.1 (1.0-2.1) 01/11/17 Range/Units 23:43 Sodium (132-148) mmol/L Potassium (3.6-5.2) mmol/L Chloride (98-107) mmol/L Carbon Dioxide (22-30) mmol/L Anion Gap (10-20) BUN (7-17) mg/dL Creatinine (0.7-1.2) MG/DL Est GFR ( Amer) Est GFR (Non-Af Amer) POC Glucose (mg/dL) 118 H (65-110) mg/dL Random Glucose (65-105) mg/dL Calcium (8.6-10.4) mg/dl Total Bilirubin (0.2-1.3) mg/dL AST (14-36) U/L ALT (9-52) U/L Alkaline Phosphatase (38-126) U/L Total Protein (6.3-8.3) g/dL Albumin (3.5-5.0) g/dL Globulin (2.2-3.9) gm/dL Albumin/Globulin Ratio (1.0-2.1) Laboratory Results - last 24 hr 01/11/17 01/12/17 01/12/17 23:43 00:16 06:20 Sodium 142 Potassium 3.2 L Chloride 95 L Carbon Dioxide 28 Anion Gap 22 H BUN 27 H Creatinine 4.1 H Est GFR ( Amer) 15 Est GFR (Non-Af Amer) 12 POC Glucose (mg/dL) 118 H 287 H Random Glucose 48 L Calcium 8.9 Total Bilirubin 0.6 AST 38 H D ALT 31 Alkaline Phosphatase 196 H Total Protein 8.0 Albumin 4.2 Globulin 3.8 Albumin/Globulin Ratio 1.1 01/12/17 01/12/17 01/12/17 07:26 08:07 11:07 Sodium Potassium Chloride Carbon Dioxide Anion Gap BUN Creatinine Est GFR ( Amer) Est GFR (Non-Af Amer) POC Glucose (mg/dL) 44 L 70 81 Random Glucose Calcium Total Bilirubin AST ALT Alkaline Phosphatase Total Protein Albumin Globulin Albumin/Globulin Ratio 01/12/17 16:56 Sodium Potassium Chloride Carbon Dioxide Anion Gap BUN Creatinine Est GFR ( Amer) Est GFR (Non-Af Amer) POC Glucose (mg/dL) 140 H Random Glucose Calcium Total Bilirubin AST ALT Alkaline Phosphatase Total Protein Albumin Globulin Albumin/Globulin Ratio Fingerstick Blood Sugar Results: 118 Review of Systems - Constitutional Constitutional: absent: Fever, Chills, Sweats - Cardiovascular Cardiovascular: UNREMARKABLE - Respiratory Respiratory: UNREMARKABLE - Gastrointestinal Gastrointestinal: UNREMARKABLE - Genitourinary Genitourinary: UNREMARKABLE - Musculoskeletal Additional comments: b/l lower extremity pain Critical Care Progress Note - Nutrition Nutrition: Nutrition Category Date Time Status Renal Diet [DIET] Diets 01/11/17 Breakfast Active Assessment/Plan - Assessment and Plan (Free Text) Assessment: 41 y/o female wth ESRD on maintenance HD, MWF, HTN, IDDM with complications was sent to ER yesterday because her K+ level drawn on 01/10/17 was 8.6. In ER last night K+ was found to be 7.1 An urgent dialysis was given last night Assessment: ESRD Hyperkalemia HTN IDDM Plan: K+ this morning is 3.2. Dialysis tomorrow then MWF schedule. Renal diet con't home meds PT/OT
[2017-01-13 10:20] LABS: POTASSIUM 5.1 mmol/L (3.6-5.2)
[2017-01-13 10:24] LABS: CALCIUM 8.6 mg/dl (8.6-10.4)
--- NOTE | 2017-01-13 11:35 | CP.PCM.PN ---
Subjective - Date & Time of Evaluation Date of Evaluation: 01/13/17 Time of Evaluation: 11:00 - Subjective Subjective: Currently on dialysis Alert C/o soreness in legs Objective - Vital Signs/Intake and Output Vital Signs (last 24 hours): Temp Pulse Resp BP Pulse Ox 97.8 F 72 15 156/78 H 100 01/13/17 09:10 01/13/17 11:30 01/13/17 09:10 01/13/17 11:30 01/13/17 07:00 Intake and Output: 01/13/17 01/13/17 06:59 18:59 Intake Total 800 100 Output Total 0 0 Balance 800 100 - Medications Medications: Current Medications Calcium Acetate (Phoslo) 667 mg PO TID [facility] Last Admin: 01/12/17 18:10 Dose: 667 mg Carvedilol (Coreg) 25 mg PO BID [facility] Last Admin: 01/12/17 18:10 Dose: 25 mg Clonidine HCl (Catapres) 0.2 mg PO BID [facility] Last Admin: 01/12/17 18:09 Dose: 0.2 mg Heparin Sodium (Porcine) (Heparin) 5,000 units SC Q8 [facility] Last Admin: 01/13/17 06:04 Dose: 5,000 units Hydralazine HCl (Apresoline) 50 mg PO BID [facility] Last Admin: 01/12/17 18:09 Dose: 50 mg Hydromorphone HCl (Dilaudid) 2 mg PO Q6H [facility] Last Admin: 01/13/17 06:04 Dose: 2 mg Metoclopramide HCl (Reglan) 10 mg PO TID [facility] Last Admin: 01/12/17 18:12 Dose: 10 mg Nifedipine (Procardia Xl) 90 mg PO DAILY [facility] Last Admin: 01/12/17 09:24 Dose: 90 mg Pantoprazole Sodium (Protonix Ec Tab) 40 mg PO DAILY [facility] Last Admin: 01/12/17 09:22 Dose: 40 mg - Labs Labs: 01/13/17 10:09 - Respiratory Exam Additional comments: Lungs clear - Cardiovascular Exam Cardiovascular Exam: REGULAR RHYTHM - Extremities Exam Additional comments: No calf tenderness Trace edema on feet Assessment and Plan - Assessment and Plan (Free Text) Assessment: ESRD on HD Hyperkalemia corrected IDDM Chronic foot ulcer Plan: K+ is 5.1 today Receiving dialysis with 2 K+ bath HD MWF
[2017-01-13] MEDS: Pantoprazole 40 mg EC Tab PO SCH (13:02)
[2017-01-13] MEDS: NIFEdipine 90 mg ER Tab PO SCH (13:02)
--- NOTE | 2017-01-13 18:42 | CP.CCUPN ---
CCU Objective - Vital Signs / Intake & Output Vital Signs (Last 4 hours): Vital Signs Temp Pulse Resp BP 01/13/17 18:00 81 13 01/13/17 17:27 157/80 H 01/13/17 17:21 84 15 157/80 H 01/13/17 17:00 83 13 01/13/17 16:21 79 12 173/96 H 01/13/17 16:00 98.2 F 81 10 L 01/13/17 15:21 81 12 176/88 H 01/13/17 15:00 76 11 L Intake and Output (Last 8hrs): Intake & Output 01/13/17 01/13/17 01/13/17 06:59 14:59 22:59 Intake Total 400 760 120 Output Total 0 0 0 Balance 400 760 120 Weight 175 lb Intake: Oral 400 760 120 Output: Urine 0 0 0 Urine, Voided 0 0 0 Stool 0 0 Emesis 0 0 - Physical Exam Head: Positive for: Atraumatic, Normocephalic Pupils: Positive for: PERRL Extroacular Muscles: Positive for: EOMI Respiratory/Chest: Positive for: Clear to Auscultation. Negative for: Wheezes Cardiovascular: Positive for: Other (jvd negative) Lower Extremity: Negative for: Edema - Medications Active Medications: Active Medications Generic Name Dose Route Start Last Admin Trade Name Emekaq PRN Reason Stop Dose Admin Calcium Acetate 667 mg 01/12/17 10:00 01/13/17 17:27 Phoslo PO 667 mg TID [facility] Administration Carvedilol 25 mg 01/11/17 23:45 01/13/17 17:27 Coreg PO 25 mg BID [facility] Administration Clonidine HCl 0.2 mg 01/11/17 23:30 01/13/17 17:27 Catapres PO 0.2 mg BID [facility] Administration Heparin Sodium (Porcine) 5,000 units 01/12/17 06:00 01/13/17 13:04 Heparin SC 5,000 units Q8 [facility] Administration Hydralazine HCl 50 mg 01/12/17 10:00 01/13/17 17:27 Apresoline PO 50 mg BID [facility] Administration Hydromorphone HCl 4 mg 01/13/17 18:00 01/13/17 17:28 Dilaudid PO 4 mg Q6H [facility] Administration Metoclopramide HCl 10 mg 01/12/17 10:00 01/13/17 17:27 Reglan PO 10 mg TID [facility] Administration Nifedipine 90 mg 01/12/17 10:00 01/13/17 13:02 Procardia Xl PO 90 mg DAILY [facility] Administration Pantoprazole Sodium 40 mg 01/12/17 10:00 01/13/17 13:02 Protonix Ec Tab PO 40 mg DAILY [facility] Administration - Patient Studies Lab Studies: Microbiology Studies 01/12/17 00:17 MRSA Culture (Admit) - Final Naris MRSA NOT DETECTED Lab Studies 01/13/17 01/12/17 Range/Units 10:09 21:41 Sodium 138 (132-148) mmol/L Potassium 5.1 (3.6-5.2) mmol/L Chloride 94 L (98-107) mmol/L Carbon Dioxide 26 (22-30) mmol/L Anion Gap 24 H (10-20) BUN 37 H (7-17) mg/dL Creatinine 5.9 H (0.7-1.2) MG/DL Est GFR ( Amer) 10 Est GFR (Non-Af Amer) 8 POC Glucose (mg/dL) 215 H (65-110) mg/dL Random Glucose 137 H (65-105) mg/dL Calcium 8.6 (8.6-10.4) mg/dl Laboratory Results - last 24 hr 01/12/17 01/13/17 21:41 10:09 Sodium 138 Potassium 5.1 Chloride 94 L Carbon Dioxide 26 Anion Gap 24 H BUN 37 H Creatinine 5.9 H Est GFR ( Amer) 10 Est GFR (Non-Af Amer) 8 POC Glucose (mg/dL) 215 H Random Glucose 137 H Calcium 8.6 Fingerstick Blood Sugar Results: 118 Critical Care Progress Note - Nutrition Nutrition: Nutrition Category Date Time Status Renal Diet [DIET] Diets 01/11/17 Breakfast Active
--- NOTE | 2017-01-14 00:15 | CP.PCM.HP ---
History of Present Illness - History of Present Illness History of Present Illness: 41 Y/O BF WAS REFERRED BY RENAL FOR HYPERKALEMIA, IN ER SHE HAD EKG CHANGES AND SHE WAS TEATED AND ADMITTED TO MICU, C/O L FOOTPAIN, NAUSEA, NO FEVER, NO COUGH , NO CHEST PAIN Present on Admission - Present on Admission Any Indicators Present on Admission: No History of DVT/PE: No History of Uncontrolled Diabetes: No Urinary Catheter: No Decubitus Ulcer Present: No Review of Systems - Review of Systems Systems not reviewed;Unavailable: Unstable Vital Signs - Constitutional Constitutional: Anorexia - EENT Nose/Mouth/Throat: Dry Mouth - Cardiovascular Cardiovascular: Dyspnea, Leg Edema - Respiratory Respiratory: Cough - Gastrointestinal Gastrointestinal: Dyspepsia, Heartburn, Nausea - Genitourinary Genitourinary: Urinary Incontinence - Musculoskeletal Musculoskeletal: Arthralgias - Integumentary Integumentary: Dry Skin - Neurological Neurological: Weakness - Psychiatric Psychiatric: Anhedonia - Endocrine Endocrine: Fatigue, Palpitations Past Patient History - Infectious Disease Hx of Infectious Diseases: None - Past Medical History & Family History Past Medical History?: Yes - Past Social History Smoking Status: Never Smoked - CARDIAC Hx Hypercholesterolemia: Yes Hx Hypertension: Yes - PULMONARY Hx Pneumonia: Yes - HEENT Hx HEENT Problems: Yes Hx Cataracts: Yes (09/23/14 left) - RENAL Hx Chronic Kidney Disease: Yes Hx Dialysis: Yes Type of Dialysis Access: left arm av shunt Date of Last Dialysis Treatment: 01/10/17 - ENDOCRINE/METABOLIC Hx Endocrine Disorders: Yes Hx Diabetes Mellitus Type 2: Yes - HEMATOLOGICAL/ONCOLOGICAL Hx Anemia: Yes - INTEGUMENTARY Other/Comment: right great toe amputation 2009 - MUSCULOSKELETAL/RHEUMATOLOGICAL Hx Falls: Yes - GASTROINTESTINAL Hx Gastritis: Yes (diabetic gastroparesis) - GENITOURINARY/GYNECOLOGICAL Hx Genitourinary Disorders: Yes Other/Comment: renal failure - PSYCHIATRIC Hx Depression: Yes Hx Substance Use: No - SURGICAL HISTORY Hx Cholecystectomy: Yes (2010) - ANESTHESIA Hx Anesthesia: Yes Hx Anesthesia Reactions: No Hx Malignant Hyperthermia: No Meds Allergies/Adverse Reactions: Allergies Allergy/AdvReac Type Severity Reaction Status Date / Time ketorolac tromethamine Allergy Verified 01/11/17 17:38 [From Toradol] morphine Allergy Verified 01/11/17 17:38 tramadol Allergy RASH Verified 01/11/17 17:38 Physical Exam - Constitutional Appears: Non-toxic, No Acute Distress, Chronically Ill - Head Exam Head Exam: ATRAUMATIC, NORMAL INSPECTION, NORMOCEPHALIC - Eye Exam Eye Exam: EOMI, Normal appearance, PERRL Pupil Exam: NORMAL ACCOMODATION - ENT Exam ENT Exam: Mucous Membranes Moist, Normal Exam, Normal Oropharynx, TM's Normal Bilaterally - Neck Exam Neck exam: Positive for: Normal Inspection - Respiratory Exam Respiratory Exam: Clear to Auscultation Bilateral, NORMAL BREATHING PATTERN - Cardiovascular Exam Cardiovascular Exam: REGULAR RHYTHM, +S1, +S2 - GI/Abdominal Exam GI & Abdominal Exam: Normal Bowel Sounds, Soft - Extremities Exam Extremities exam: Negative for: normal capillary refill, pedal pulses present - Back Exam Back exam: NORMAL INSPECTION - Neurological Exam Neurological exam: Abnormal Gait, Alert, CN II-XII Intact, Reflexes Normal - Psychiatric Exam Psychiatric exam: Flat Affect - Skin Skin Exam: Dry, Intact Results - Vital Signs Recent Vital Signs: Last Vital Signs Temp 98.1 F 01/13/17 21:54 Pulse 75 01/13/17 22:14 Resp 20 01/13/17 21:54 BP 144/74 01/13/17 22:13 Pulse Ox 95 01/13/17 21:54 - Labs Result Diagrams: 01/15/17 11:32 01/15/17 16:49 Labs: Laboratory Results - last 24 hr 01/13/17 01/13/17 10:09 21:41 Sodium 138 Potassium 5.1 Chloride 94 L Carbon Dioxide 26 Anion Gap 24 H BUN 37 H Creatinine 5.9 H Est GFR ( Amer) 10 Est GFR (Non-Af Amer) 8 POC Glucose (mg/dL) 143 H Random Glucose 137 H Calcium 8.6 Assessment & Plan (1) Hyperkalemia Status: Acute Priority: High (2) Uncontrolled hypertension Status: Acute Priority: High (3) CKD (chronic kidney disease) requiring chronic dialysis Status: Chronic Priority: Medium (4) Diabetic gastroparesis Status: Chronic Priority: Medium
--- NOTE | 2017-01-14 00:17 | CP.PCM.PN ---
Subjective - Date & Time of Evaluation Date of Evaluation: 01/13/17 - Subjective Subjective: BP IS HIGH, ABDOMINAL PAIN, NO SOB, NO COUGH, NO CHEST PAIN Objective - Vital Signs/Intake and Output Vital Signs (last 24 hours): Temp Pulse Resp BP Pulse Ox 98.1 F 75 20 144/74 95 01/13/17 21:54 01/13/17 22:14 01/13/17 21:54 01/13/17 22:13 01/13/17 21:54 Intake and Output: 01/13/17 01/14/17 18:59 06:59 Intake Total 880 180 Output Total 0 0 Balance 880 180 - Medications Medications: Current Medications Calcium Acetate (Phoslo) 667 mg PO TID [facility] Last Admin: 01/13/17 17:27 Dose: 667 mg Carvedilol (Coreg) 25 mg PO BID [facility] Last Admin: 01/13/17 17:27 Dose: 25 mg Clonidine HCl (Catapres) 0.2 mg PO BID [facility] Last Admin: 01/13/17 17:27 Dose: 0.2 mg Heparin Sodium (Porcine) (Heparin) 5,000 units SC Q8 [facility] Last Admin: 01/13/17 21:14 Dose: 5,000 units Hydralazine HCl (Apresoline) 50 mg PO BID [facility] Last Admin: 01/13/17 17:27 Dose: 50 mg Hydromorphone HCl (Dilaudid) 4 mg PO Q6H [facility] Last Admin: 01/13/17 23:44 Dose: 4 mg Metoclopramide HCl (Reglan) 10 mg PO TID [facility] Last Admin: 01/13/17 17:27 Dose: 10 mg Nifedipine (Procardia Xl) 90 mg PO DAILY [facility] Last Admin: 01/13/17 13:02 Dose: 90 mg Pantoprazole Sodium (Protonix Ec Tab) 40 mg PO DAILY [facility] Last Admin: 01/13/17 13:02 Dose: 40 mg - Labs Labs: 01/13/17 10:09 - Constitutional Appears: Non-toxic, No Acute Distress, Chronically Ill - Eye Exam Eye Exam: EOMI, Normal appearance, PERRL Pupil Exam: NORMAL ACCOMODATION - ENT Exam ENT Exam: Mucous Membranes Moist, Normal Exam, Normal Oropharynx, TM's Normal Bilaterally - Neck Exam Neck Exam: Normal Inspection - Respiratory Exam Respiratory Exam: Clear to Ausculation Bilateral, NORMAL BREATHING PATTERN - Cardiovascular Exam Cardiovascular Exam: REGULAR RHYTHM, +S1, +S2 - GI/Abdominal Exam GI & Abdominal Exam: Normal Bowel Sounds - Rectal Exam Rectal Exam: NORMAL INSPECTION - Extremities Exam Extremities Exam: absent: Normal Capillary Refill, Pedal Edema - Neurological Exam Neurological Exam: Abnormal Gait, Alert, Awake, CN II-XII Intact Neuro motor strength exam: Left Upper Extremity: 5, Right Upper Extremity: 5, Left Lower Extremity: 5, Right Lower Extremity: 5 - Psychiatric Exam Psychiatric exam: Normal Mood - Skin Skin Exam: Intact Assessment and Plan (1) Hyperkalemia Status: Acute (2) Uncontrolled hypertension Status: Acute (3) CKD (chronic kidney disease) requiring chronic dialysis Status: Chronic (4) Diabetic gastroparesis Status: Chronic
[2017-01-14] MEDS: Pantoprazole 40 mg EC Tab PO SCH (09:24)
[2017-01-14] MEDS: NIFEdipine 90 mg ER Tab PO SCH (09:24)
--- NOTE | 2017-01-14 10:34 | CP.PCM.PN ---
Subjective - Date & Time of Evaluation Date of Evaluation: 01/14/17 Time of Evaluation: 10:30 - Subjective Subjective: C/o pain in Lt foot. [place] was just changed Objective - Vital Signs/Intake and Output Vital Signs (last 24 hours): Temp Pulse Resp BP Pulse Ox 98.7 F 75 20 157/73 H 96 01/14/17 08:05 01/14/17 08:05 01/14/17 08:05 01/14/17 09:24 01/14/17 08:05 Intake and Output: 01/14/17 01/14/17 06:59 18:59 Intake Total 180 Output Total 0 Balance 180 - Medications Medications: Current Medications Calcium Acetate (Phoslo) 667 mg PO TID [facility] Last Admin: 01/14/17 09:24 Dose: 667 mg Carvedilol (Coreg) 25 mg PO BID [facility] Last Admin: 01/14/17 09:24 Dose: 25 mg Clonidine HCl (Catapres) 0.2 mg PO BID [facility] Last Admin: 01/14/17 09:25 Dose: 0.2 mg Heparin Sodium (Porcine) (Heparin) 5,000 units SC Q8 [facility] Last Admin: 01/14/17 05:34 Dose: 5,000 units Hydralazine HCl (Apresoline) 50 mg PO BID [facility] Last Admin: 01/14/17 09:25 Dose: 50 mg Hydromorphone HCl (Dilaudid) 4 mg PO Q6H [facility] Last Admin: 01/14/17 05:33 Dose: 4 mg Metoclopramide HCl (Reglan) 10 mg PO TID [facility] Last Admin: 01/14/17 09:24 Dose: 10 mg Nifedipine (Procardia Xl) 90 mg PO DAILY [facility] Last Admin: 01/14/17 09:24 Dose: 90 mg Pantoprazole Sodium (Protonix Ec Tab) 40 mg PO DAILY [facility] Last Admin: 01/14/17 09:24 Dose: 40 mg - Labs Labs: 01/13/17 10:09 - Respiratory Exam Additional comments: Lungs clear - Cardiovascular Exam Cardiovascular Exam: REGULAR RHYTHM - Extremities Exam Additional comments: No edema. Lt foot dressed Assessment and Plan - Assessment and Plan (Free Text) Assessment: ESRD Hyperkalemia corrected HTN Plan: For dialysis tomorrow BMP in am
--- NOTE | 2017-01-14 10:35 | CP.PCM.CON ---
History of Present Illness - History of Present Illness History of Present Illness: Podiatry Consult noted for Dr. Bran 41 year old female with PMHx including DM was seen at bedside regarding left heel ulcer. Patient AAOx3, NAD. Patient states that she had had this heel ulcer for a long time. Admits to pain to the left lower extremity. Offloading boot applied to LLE. Denies any n/v/f/c/sob/cp. Past Patient History - Infectious Disease Hx of Infectious Diseases: None - Past Medical History & Family History Past Medical History?: Yes - Past Social History Smoking Status: Never Smoked - CARDIAC Hx Hypercholesterolemia: Yes Hx Hypertension: Yes - PULMONARY Hx Pneumonia: Yes - HEENT Hx HEENT Problems: Yes Hx Cataracts: Yes (09/23/14 left) - RENAL Hx Chronic Kidney Disease: Yes Hx Dialysis: Yes Type of Dialysis Access: left arm av shunt Date of Last Dialysis Treatment: 01/10/17 - ENDOCRINE/METABOLIC Hx Endocrine Disorders: Yes Hx Diabetes Mellitus Type 2: Yes - HEMATOLOGICAL/ONCOLOGICAL Hx Anemia: Yes - INTEGUMENTARY Other/Comment: right great toe amputation 2009 - MUSCULOSKELETAL/RHEUMATOLOGICAL Hx Falls: Yes - GASTROINTESTINAL Hx Gastritis: Yes (diabetic gastroparesis) - GENITOURINARY/GYNECOLOGICAL Hx Genitourinary Disorders: Yes Other/Comment: renal failure - PSYCHIATRIC Hx Depression: Yes Hx Substance Use: No - SURGICAL HISTORY Hx Cholecystectomy: Yes (2010) - ANESTHESIA Hx Anesthesia: Yes Hx Anesthesia Reactions: No Hx Malignant Hyperthermia: No Meds Allergies/Adverse Reactions: Allergies Allergy/AdvReac Type Severity Reaction Status Date / Time ketorolac tromethamine Allergy Verified 01/11/17 17:38 [From Toradol] morphine Allergy Verified 01/11/17 17:38 tramadol Allergy RASH Verified 01/11/17 17:38 - Medications Medications: Current Medications Calcium Acetate (Phoslo) 667 mg PO TID [facility] Last Admin: 01/14/17 09:24 Dose: 667 mg Carvedilol (Coreg) 25 mg PO BID [facility] Last Admin: 01/14/17 09:24 Dose: 25 mg Clonidine HCl (Catapres) 0.2 mg PO BID [facility] Last Admin: 01/14/17 09:25 Dose: 0.2 mg Heparin Sodium (Porcine) (Heparin) 5,000 units SC Q8 [facility] Last Admin: 01/14/17 05:34 Dose: 5,000 units Hydralazine HCl (Apresoline) 50 mg PO BID [facility] Last Admin: 01/14/17 09:25 Dose: 50 mg Hydromorphone HCl (Dilaudid) 4 mg PO Q6H [facility] Last Admin: 01/14/17 05:33 Dose: 4 mg Metoclopramide HCl (Reglan) 10 mg PO TID [facility] Last Admin: 01/14/17 09:24 Dose: 10 mg Nifedipine (Procardia Xl) 90 mg PO DAILY [facility] Last Admin: 01/14/17 09:24 Dose: 90 mg Pantoprazole Sodium (Protonix Ec Tab) 40 mg PO DAILY [facility] Last Admin: 01/14/17 09:24 Dose: 40 mg Physical Exam - Constitutional Appears: Non-toxic, No Acute Distress - Extremities Exam Additional comments: Left lower extremity focused exam: Vasc: DP and PT pulses 2/4, MARRIAGE THERAPIST<3 seconds, skin temperature normal, mild edema of the left foot. Derm: Open ulceration noted to the left heel measuring approximately 2 cm by 1.5 cm by 0.2 cm, base is fibrogranular with a hyperkeratotic rim, no malodor, no drainage noted. Small healed ulcer noted to the anterior aspect of the ankle. Neuro: Protective sensation decreased. Ortho: Pain on palpation to the left heel. - Neurological Exam Neurological exam: Alert, Oriented x3 - Psychiatric Exam Psychiatric exam: Normal Affect, Normal Mood Results - Vital Signs Recent Vital Signs: Last Vital Signs Temp 98.7 F 01/14/17 08:05 Pulse 75 01/14/17 08:05 Resp 20 01/14/17 08:05 BP 157/73 H 01/14/17 09:24 Pulse Ox 96 01/14/17 08:05 - Labs Result Diagrams: 01/11/17 18:13 01/13/17 10:09 Labs: Laboratory Results - last 24 hr 01/13/17 01/14/17 21:41 06:52 POC Glucose (mg/dL) 143 H 104 Assessment & Plan - Assessment and Plan (Free Text) Assessment: 41 year old female history of left heel OM with chronic left heel ulceration. Plan: Patient examined and evaluated Discussed with attending, Dr. Bran. Labs, chart and vitals reviewed All questions and concerns were addressed Left heel dressed with 4x4, ABD, kerlix Continue use of prevalon offloading boot at all times while in bed Podiatry will continue to follow patient while in house
--- NOTE | 2017-01-14 22:33 | CP.PCM.PN ---
Subjective - Subjective Subjective: FEELS BETTER, NO SOB, NO CHEST PAIN Objective - Vital Signs/Intake and Output Vital Signs (last 24 hours): Temp Pulse Resp BP Pulse Ox 98.4 F 70 18 151/81 H 98 01/14/17 15:29 01/14/17 16:00 01/14/17 15:29 01/14/17 17:59 01/14/17 15:29 Intake and Output: 01/14/17 01/15/17 18:59 06:59 Intake Total 600 Balance 600 - Medications Medications: Current Medications Calcium Acetate (Phoslo) 667 mg PO TID [facility] Last Admin: 01/14/17 17:59 Dose: 667 mg Carvedilol (Coreg) 25 mg PO BID [facility] Last Admin: 01/14/17 17:59 Dose: 25 mg Clonidine HCl (Catapres) 0.2 mg PO BID [facility] Last Admin: 01/14/17 18:03 Dose: 0.2 mg Heparin Sodium (Porcine) (Heparin) 5,000 units SC Q8 [facility] Last Admin: 01/14/17 21:14 Dose: 5,000 units Hydralazine HCl (Apresoline) 50 mg PO BID [facility] Last Admin: 01/14/17 18:03 Dose: 50 mg Hydromorphone HCl (Dilaudid) 4 mg PO Q6H [facility] Last Admin: 01/14/17 18:05 Dose: 4 mg Metoclopramide HCl (Reglan) 10 mg PO TID [facility] Last Admin: 01/14/17 18:03 Dose: 10 mg Nifedipine (Procardia Xl) 90 mg PO DAILY [facility] Last Admin: 01/14/17 09:24 Dose: 90 mg Pantoprazole Sodium (Protonix Ec Tab) 40 mg PO DAILY [facility] Last Admin: 01/14/17 09:24 Dose: 40 mg - Labs Labs: 01/13/17 10:09 - Constitutional Appears: Non-toxic, No Acute Distress, Chronically Ill - Head Exam Head Exam: NORMAL INSPECTION, NORMOCEPHALIC - Eye Exam Eye Exam: EOMI, Normal appearance, PERRL - ENT Exam ENT Exam: Mucous Membranes Moist, Normal Exam, Normal Oropharynx, TM's Normal Bilaterally - Respiratory Exam Respiratory Exam: Clear to Ausculation Bilateral, NORMAL BREATHING PATTERN - Cardiovascular Exam Cardiovascular Exam: REGULAR RHYTHM, +S1, +S2 - GI/Abdominal Exam GI & Abdominal Exam: Normal Bowel Sounds - Rectal Exam Rectal Exam: NORMAL INSPECTION - Psychiatric Exam Psychiatric exam: Anxious, Flat Affect - Skin Skin Exam: Intact Assessment and Plan (1) Hyperkalemia Status: Acute (2) Uncontrolled hypertension Status: Acute (3) CKD (chronic kidney disease) requiring chronic dialysis Status: Chronic (4) Diabetic gastroparesis Status: Chronic
[2017-01-15] MEDS: Pantoprazole 40 mg EC Tab PO SCH (10:00)
--- NOTE | 2017-01-15 11:16 | CP.PCM.PN ---
Subjective - Date & Time of Evaluation Date of Evaluation: 01/15/17 Time of Evaluation: 11:20 - Subjective Subjective: Seen on dialysis sedated Objective - Vital Signs/Intake and Output Vital Signs (last 24 hours): Temp Pulse Resp BP Pulse Ox 98.5 F 67 20 142/83 94 L 01/15/17 08:00 01/15/17 08:00 01/15/17 08:00 01/15/17 08:00 01/15/17 08:00 - Medications Medications: Current Medications Calcium Acetate (Phoslo) 667 mg PO TID [facility] Last Admin: 01/15/17 10:00 Dose: 667 mg Carvedilol (Coreg) 25 mg PO BID [facility] Last Admin: 01/14/17 17:59 Dose: 25 mg Clonidine HCl (Catapres) 0.2 mg PO BID [facility] Last Admin: 01/14/17 18:03 Dose: 0.2 mg Hydralazine HCl (Apresoline) 50 mg PO BID [facility] Last Admin: 01/14/17 18:03 Dose: 50 mg Hydromorphone HCl (Dilaudid) 4 mg PO Q6H [facility] Last Admin: 01/15/17 05:24 Dose: 4 mg Metoclopramide HCl (Reglan) 10 mg PO TID [facility] Last Admin: 01/15/17 10:00 Dose: 10 mg Nifedipine (Procardia Xl) 90 mg PO DAILY [facility] Last Admin: 01/14/17 09:24 Dose: 90 mg Pantoprazole Sodium (Protonix Ec Tab) 40 mg PO DAILY [facility] Last Admin: 01/15/17 10:00 Dose: 40 mg - Labs Labs: 01/13/17 10:09 - Respiratory Exam Additional comments: Lungs clear - Cardiovascular Exam Cardiovascular Exam: REGULAR RHYTHM - Extremities Exam Additional comments: No edema Assessment and Plan - Assessment and Plan (Free Text) Assessment: ESRD HTN IDDM Plan: Dialysis is done with 2K+ bath Will monitor Continue HD MWF
[2017-01-15 11:38] LABS: MEAN CELL VOLUME 94.5 fL (81.0-99.0); MEAN CORPUSCULAR HEMOGLOBIN 31.1 pg (27.0-31.0); MEAN CORPUSCULAR HGB CONC 32.9 g/dL (33.0-37.0); MEAN PLATELET VOLUME 8.7 fL (7.2-11.7); RED CELL DISTRIBUTION WIDTH 16.2 % (11.5-14.5); WHITE BLOOD COUNT 9.1 K/uL (4.8-10.8)
[2017-01-15 11:53] LABS: CALCIUM 9.7 mg/dl (8.6-10.4)
[2017-01-15 12:21] LABS: POTASSIUM 6.9 mmol/L (3.6-5.2)
[2017-01-15] MEDS: NIFEdipine 90 mg ER Tab PO SCH (15:53)
[2017-01-15 17:23] VITALS: RESP 20; TEMP 98.2; O2SAT 99
--- NOTE | 2017-01-15 18:14 | CP.PCM.PN ---
Subjective - Date & Time of Evaluation Date of Evaluation: 01/15/17 Time of Evaluation: 18:11 - Subjective Subjective: 41 Y/O FEMALE SEEN AND EXAMINED TODAY, PT DENIES ANY PAIN, SOB, PALPITATION, RESP EASY AND UNLABORED, NAD Objective - Vital Signs/Intake and Output Vital Signs (last 24 hours): Temp Pulse Resp BP Pulse Ox 98.2 F 83 20 177/85 H 99 01/15/17 15:00 01/15/17 15:00 01/15/17 15:00 01/15/17 15:00 01/15/17 15:00 Intake and Output: 01/15/17 01/15/17 06:59 18:59 Intake Total 750 Balance 750 - Medications Medications: Current Medications Calcium Acetate (Phoslo) 667 mg PO TID [facility] Last Admin: 01/15/17 14:10 Dose: Not Given Carvedilol (Coreg) 25 mg PO BID [facility] Last Admin: 01/15/17 10:30 Dose: Not Given Clonidine HCl (Catapres) 0.2 mg PO BID [facility] Last Admin: 01/15/17 10:30 Dose: Not Given Hydralazine HCl (Apresoline) 50 mg PO BID [facility] Last Admin: 01/15/17 10:30 Dose: Not Given Hydromorphone HCl (Dilaudid) 4 mg PO Q6H [facility] Last Admin: 01/15/17 15:53 Dose: 4 mg Metoclopramide HCl (Reglan) 10 mg PO TID [facility] Last Admin: 01/15/17 14:10 Dose: Not Given Nifedipine (Procardia Xl) 90 mg PO DAILY [facility] Last Admin: 01/15/17 15:53 Dose: 90 mg Pantoprazole Sodium (Protonix Ec Tab) 40 mg PO DAILY [facility] Last Admin: 01/15/17 10:00 Dose: 40 mg - Labs Labs: 01/15/17 11:32 01/15/17 16:49 Assessment and Plan - Assessment and Plan (Free Text) Plan: 41 Y/O FEMALE ADMITTED FOR HYPERKALEMIA, HTN, CKD, DIABETIC GASTROPARESIS DIALYSIS DONE TODAY - REPEAT K IS 4.7 PT CLEARED FOR D/C PER DR LEE PT EDUCATED TO F/U WITH DR LEE IN THE OFFICE IN 2-3 DAYS CONTINUE HOME MEDS, RETURN TO ER FOR WORSENING SYMPTOMS AGREE, VERBALIZE UNDERSTANDING
[2017-01-15 18:59] VITALS: BP 188/95; PULSE 85
--- NOTE | 2017-01-16 11:52 | CP.PCM.DIS ---
Provider - Provider Date of Admission: 01/11/17 23:20 Attending physician: Sal Gamez MD Time Spent in preparation of Discharge (in minutes): 55 Diagnosis - Discharge Diagnosis (1) Hyperkalemia Status: Acute Priority: High (2) Uncontrolled hypertension Status: Acute Priority: High (3) CKD (chronic kidney disease) requiring chronic dialysis Status: Chronic Priority: Medium (4) Diabetic gastroparesis Status: Chronic Priority: Medium Hospital Course - Lab Results Lab Results: Micro Results 01/13/17 22:15 Naris MRSA Culture - Final MRSA NOT DETECTED 01/12/17 00:17 Naris MRSA Culture (Admit) - Final MRSA NOT DETECTED Most Recent Lab Values WBC 9.1 K/uL (4.8-10.8) 01/15/17 11:32 RBC 4.02 Mil/uL (3.80-5.20) 01/15/17 11:32 Hgb 12.5 g/dL (11.0-16.0) 01/15/17 11:32 Hct 38.0 % (34.0-47.0) 01/15/17 11:32 MCV 94.5 fL (81.0-99.0) 01/15/17 11:32 MCH 31.1 pg (27.0-31.0) H 01/15/17 11:32 MCHC 32.9 g/dL (33.0-37.0) L 01/15/17 11:32 RDW 16.2 % (11.5-14.5) H 01/15/17 11:32 Plt Count 165 K/uL (130-400) 01/15/17 11:32 MPV 8.7 fL (7.2-11.7) 01/15/17 11:32 Neut % (Auto) 68.6 % (50.0-75.0) 01/11/17 18:13 Lymph % (Auto) 11.6 % (20.0-40.0) L 01/11/17 18:13 Callahan % (Auto) 8.0 % (0.0-10.0) 01/11/17 18:13 Eos % (Auto) 10.7 % (0.0-4.0) H 01/11/17 18:13 Baso % (Auto) 1.1 % (0.0-2.0) 01/11/17 18:13 Neut # 6.6 K/uL (1.8-7.0) 01/11/17 18:13 Lymph # 1.1 K/uL (1.0-4.3) 01/11/17 18:13 Callahan # 0.8 K/uL (0.0-0.8) 01/11/17 18:13 Eos # 1.0 K/uL (0.0-0.7) H 01/11/17 18:13 Baso # 0.1 K/uL (0.0-0.2) 01/11/17 18:13 Sodium 136 mmol/L (132-148) 01/15/17 11:32 Potassium 4.7 mmol/L (3.6-5.2) 01/15/17 16:49 Chloride 93 mmol/L (98-107) L 01/15/17 11:32 Carbon Dioxide 21 mmol/L (22-30) L 01/15/17 11:32 Anion Gap 29 (10-20) H 01/15/17 11:32 BUN 63 mg/dL (7-17) H 01/15/17 11:32 Creatinine 8.7 MG/DL (0.7-1.2) H* D 01/15/17 11:32 Est GFR ( Amer) 6 01/15/17 11:32 Est GFR (Non-Af Amer) 5 01/15/17 11:32 POC Glucose (mg/dL) 152 mg/dL (65-110) H 01/15/17 16:38 Random Glucose 93 mg/dL (65-105) 01/15/17 11:32 Calcium 9.7 mg/dl (8.6-10.4) 01/15/17 11:32 Total Bilirubin 0.6 mg/dL (0.2-1.3) 01/12/17 06:20 AST 38 U/L (14-36) H D 01/12/17 06:20 ALT 31 U/L (9-52) 01/12/17 06:20 Alkaline Phosphatase 196 U/L (38-126) H 01/12/17 06:20 Total Protein 8.0 g/dL (6.3-8.3) 01/12/17 06:20 Albumin 4.2 g/dL (3.5-5.0) 01/12/17 06:20 Globulin 3.8 gm/dL (2.2-3.9) 01/12/17 06:20 Albumin/Globulin Ratio 1.1 (1.0-2.1) 01/12/17 06:20 - Hospital Course Hospital Course: 41 Y/O FEMALE ADMITTED FOR HYPERKALEMIA, HTN, CKD, DIABETIC GASTROPARESIS DIALYSIS DONE TODAY - REPEAT K IS 4.7 PT CLEARED FOR D/C PT EDUCATED TO F/U WITH ME IN THE OFFICE IN 2-3 DAYS CONTINUE HOME MEDS, RETURN TO ER FOR WORSENING SYMPTOMS AGREE, VERBALIZE UNDERSTANDING Discharge Exam - Head Exam Head Exam: NORMAL INSPECTION, NORMOCEPHALIC - Eye Exam Eye Exam: EOMI - Respiratory Exam Respiratory Exam: Clear to PA & Lateral, Rales, NORMAL BREATHING PATTERN - Cardiovascular Exam Cardiovascular Exam: Tachycardia, +S1, +S2, +S4 - GI/Abdominal Exam GI & Abdominal Exam: Normal Bowel Sounds Discharge Plan - Follow Up Plan Condition: FAIR Disposition: HOME/ ROUTINE Instructions: Diabetes Mellitus Type 2 in Adults (DC), Meal Planning with the Plate Method (DC), Hyperkalemia (DC) Additional Instructions: FOLLOW UP WITH DR GAMEZ IN THE OFFICE IN 2-3 DAYS CONTINUE HD M/W/F SCHEDULE CONTINUE HOME MEDS CALL DR GAMEZ IF ANY FURTHER QUESTION RETURN TO ER IF ANY WORSENING SYMPTOMS Referrals: Denisha Orellana MD [Staff Provider] - Sal Gamez MD [Staff Provider] -
== END 2017-01-15 20:21 | disposition home or self-care (01) | DRG 640 ==
LOC: C.ER 17:30 → C.9OBSV 19:00 → OBSVTOIN 23:20 → C.9I 23:30 → C.5S 01-13 21:20
PROVIDERS: ADMIT Internal Medicine; ATTEND Internal Medicine
PROC: 5A1D60Z (ICD-10-PCS; principal; 2017-01-12)
DX: E87.5 Hyperkalemia (principal); N18.6 End stage renal disease; E11.22 Type 2 diabetes mellitus with diabetic chronic kidney disease; I12.0 Hypertensive chronic kidney disease with stage 5 chronic kidney disease or end stage renal disease; E11.621 Type 2 diabetes mellitus with foot ulcer; E11.43 Type 2 diabetes mellitus with diabetic autonomic (poly)neuropathy; K31.84 Gastroparesis; L97.529 Non-pressure chronic ulcer of other part of left foot with unspecified severity; E78.00 Pure hypercholesterolemia, unspecified; Z79.4 Long term (current) use of insulin; Z87.01 Personal history of pneumonia (recurrent); Z89.411 Acquired absence of right great toe; Z90.49 Acquired absence of other specified parts of digestive tract; Z99.2 Dependence on renal dialysis

== ENCOUNTER 2017-10-10 18:48 | Emergency (ER) | payer MEDICARE, OTHER ==
[2017-10-10 18:48] VITALS: BMI 28.2
[2017-10-10 18:57] VITALS: PULSE 81; TEMP 98.1
--- NOTE | 2017-10-10 19:18 | C.PDOC ---
History Of Present Illness 41 year old female is brought today by EMS for evaluation of Av shunt bleeding that occurred after dialysis today. Patient had pressure dressing applied. Patient is also c/o lower back pain that has been on and off for the past few months wants pain medications. Patient denies weakness, numbness, nausea, vomit , diarrhea, CP, SOB. Chief Complaint (Nursing): Upper Extremity Problem/Injury History Per: Patient History/Exam Limitations: no limitations Onset/Duration Of Symptoms: Hrs Current Symptoms Are (Timing): Still Present Quality: "Pain" Recent travel outside of the [place]: No Additional History Per: Patient Past Medical History Reviewed: Historical Data, Nursing Documentation, Vital Signs Vital Signs: Last Vital Signs Temp 98.1 F 10/10/17 21:22 Pulse 81 10/10/17 21:22 Resp 20 10/10/17 21:22 BP 107/57 L 10/10/17 21:22 Pulse Ox 95 10/10/17 21:22 - Medical History PMH: Anemia, Depression, Diabetes, Gastritis (diabetic gastroparesis), HTN, Hypercholesterolemia, Pneumonia, End Stage Renal Disease (Dialysis M-W-F), Chronic Kidney Disease Surgical History: Cholecystectomy (2010) - [facility] Procedures BONE BIOPSY NEC (04/07/13) CATARAC PHACOEMULS/ASPIR (09/23/14) CONTRAST ARTERIOGRAM NEC (07/17/13) CONTRAST ARTERIOGRAM-LEG (04/07/13) DIALYSIS ARTERIOVENOSTOM (04/07/13) DRAINAGE OF LEFT BREAST, OPEN APPROACH (10/27/16) ESOPHAGOGASTRODUODENOSCOPY [EGD] W/CLOSED BIOPSY (09/19/13) EXCIS DEBRIDE OF WOUND, INFECT, OR BURN (07/17/13) EXCISION OF LEFT BREAST, OPEN APPROACH, DIAGNOSTIC (10/27/16) EXCISION OF STOMACH, ENDO, DIAGN (09/13/16) EXCISION OF STOMACH, PYLORUS, ENDO, DIAGN (03/14/15) EXTRACTION OF LEFT FOOT SKIN, EXTERNAL APPROACH (10/07/16) EXTRACTION OF LEFT LOWER LEG SKIN, EXTERNAL APPROACH (06/16/16) HEMODIALYSIS (01/01/15) INCIS W REM OF FORIEGN BODY OR DEV FROM SKIN & SUBCUT TISSUE (05/27/13) INDIVID PSYCHOTHERAP NEC (04/20/13) INJECT/INFUSE NEC (11/09/13) INSERT LENS AT CATAR EXT (09/23/14) INSERTION OF INFUSION DEV INTO SUP VENA CAVA, PERC APPROACH (10/27/16) INSPECTION OF UPPER INTESTINAL TRACT, ENDO (03/10/16) OCCUPATIONAL THERAPY (04/30/13) OTHER GROUP THERAPY (04/20/13) OTHER SKIN & SUBQ I D (07/17/13) PERFORMANCE OF URINARY FILTRATION, MULTIPLE (01/11/17) PERFORMANCE OF URINARY FILTRATION, SINGLE (10/04/16) PHYSICAL THERAPY NEC (04/30/13) REMOVAL OF INFUSION DEV FROM GREAT VESSEL, IN FLIGHT CREW MEMBER APPROACH (10/16/16) REMOVAL OF INFUSION DEVICE FROM GREAT VESSEL, PERC APPROACH (10/27/16) TRANSFUSE NONAUT RED BLOOD CELLS IN PERIPH VEIN, PERC (06/10/15) ULTRASONOGRAPHY OF RIGHT AND LEFT HEART, TRANSESOPHAGEAL (06/19/15) ULTRASONOGRAPHY OF SUPERIOR VENA CAVA, GUIDANCE (10/07/16) Family History: States: Diabetes - Social History Hx Tobacco Use: No Hx Alcohol Use: No Hx Substance Use: No - Immunization History Hx Tetanus Toxoid Vaccination: Yes Hx Influenza Vaccination: Yes Hx Pneumococcal Vaccination: Yes Review Of Systems Constitutional: Negative for: Fever, Chills Cardiovascular: Negative for: Chest Pain Respiratory: Negative for: Shortness of Breath Gastrointestinal: Negative for: Nausea, Vomiting Musculoskeletal: Positive for: Arm Pain Skin: Negative for: Rash Neurological: Negative for: Weakness, Numbness Physical Exam - Physical Exam Appears: Non-toxic, No Acute Distress Skin: Normal Color, Warm, Dry Head: Atraumatic, Normacephalic Eye(s): bilateral: Normal Inspection Oral Mucosa: Moist Neck: Normal ROM, Supple Chest: Symmetrical Cardiovascular: Rhythm Regular, No Murmur Respiratory: Normal Breath Sounds, No Rales, No Rhonchi, No Wheezing Gastrointestinal/Abdominal: Soft, No Tenderness, No Guarding, No Rebound Back: Normal Inspection Extremity: Normal ROM, No Tenderness, Capillary Refill (< 2 seconds), No Swelling, Other (AV shunt no active bleeding noted) Extremity: Bilateral: Atraumatic, Normal Color And Temperature Pulses: Left Radial: Normal, Right Radial: Normal Neurological/Psych: Oriented x3, Normal Speech Gait: Steady ED Course And Treatment O2 Sat by Pulse Oximetry: 99 (ON RA) Pulse Ox Interpretation: Normal Progress Note: Patient hs been on percocet for pain before and asking for same. Medical Decision Making Medical Decision Making: Patient had dressing applied to AV shunt and will be D/C. Disposition Counseled Patient/Family Regarding: Diagnosis - Disposition Referrals: Sal Gamez MD [Staff Provider] - Disposition: HOME/ ROUTINE Disposition Time: 19:24 Condition: STABLE Prescriptions: Cyclobenzaprine [Cyclobenzaprine HCl] 10 mg PO TID #10 tab traMADol/Acetaminophen [Ultracet 325 MG-37.5 MG] 1 tab PO Q6 #10 tab Instructions: Upper Back Pain (DC), Arteriovenous Shunt (DC) Forms: [employer] (Upper Sorbian) - Clinical Impression Clinical Impression: ESRD (end stage renal disease) on dialysis, Bleeding - Scribe Statement The provider has reviewed the documentation as recorded by the Scribe Tk Briggs All medical record entries made by the Scribe were at my direction and personally dictated by me. I have reviewed the chart and agree that the record accurately reflects my personal performance of the history, physical exam, medical decision making, and the department course for this patient. I have also personally directed, reviewed, and agree with the discharge instructions and disposition.
[2017-10-10] MEDS ORDERED: Absorbable Gelatin Sponge Size 12-7 TOP STA (19:20)
[2017-10-10] MEDS ORDERED: Absorbable Gelatin Sponge Size 12-7 ONE (19:22)
[2017-10-10 21:23] VITALS: BP 107/57; RESP 20
[2017-10-10 23:25] VITALS: O2SAT 99
== END 2017-10-10 22:04 | disposition home or self-care (01) ==
LOC: C.ER 18:48
DX: T82.838A Hemorrhage due to vascular prosthetic devices, implants and grafts, initial encounter (principal); I12.0 Hypertensive chronic kidney disease with stage 5 chronic kidney disease or end stage renal disease; N18.6 End stage renal disease; Z99.2 Dependence on renal dialysis; E78.00 Pure hypercholesterolemia, unspecified; E11.9 Type 2 diabetes mellitus without complications

== ENCOUNTER 2017-10-16 06:46 | Inpatient (IN) | payer MEDICARE, OTHER ==
[2017-10-16 06:47] VITALS: BMI 28.2
[2017-10-16] MEDS ORDERED: Iohexol 240 (50 ml) PO ONE (07:34)
--- NOTE | 2017-10-16 08:15 | C.PDOC ---
History Of Present Illness 42 year old F with history of DM, ESRD on HD (M, W, F) last HD was last Sunday, presented with abdominal pain, vomiting and diarrhea since last Sunday. Pt states that she has been having diarrhea five times a days and multiple bouts of vomiting. She also complains of diffuse abdominal pain and relates the pain to her gastroporesis. Denies any chest pain, shortness of breath, fever or chills. Time Seen by Provider: 10/16/17 07:18 Chief Complaint (Nursing): Abdominal Pain History Per: Patient History/Exam Limitations: no limitations Onset/Duration Of Symptoms: Days (four days) Current Symptoms Are (Timing): Still Present Pain Scale Rating Of: 7 Recent travel outside of the [place]: No Past Medical History Vital Signs: Last Vital Signs Temp 98.8 F 10/16/17 06:48 Pulse 79 10/16/17 06:48 Resp 28 H 10/16/17 06:48 BP 153/72 H 10/16/17 06:48 Pulse Ox 89 L 10/16/17 11:06 - Medical History PMH: Anemia, Depression, Diabetes, Gastritis (diabetic gastroparesis), HTN, Hypercholesterolemia, Pneumonia, End Stage Renal Disease (Dialysis M-W-F), Chronic Kidney Disease Surgical History: Cholecystectomy (2010) - [facility] Procedures BONE BIOPSY NEC (04/07/13) CATARAC PHACOEMULS/ASPIR (09/23/14) CONTRAST ARTERIOGRAM NEC (07/17/13) CONTRAST ARTERIOGRAM-LEG (04/07/13) DIALYSIS ARTERIOVENOSTOM (04/07/13) DRAINAGE OF LEFT BREAST, OPEN APPROACH (10/27/16) ESOPHAGOGASTRODUODENOSCOPY [EGD] W/CLOSED BIOPSY (09/19/13) EXCIS DEBRIDE OF WOUND, INFECT, OR BURN (07/17/13) EXCISION OF LEFT BREAST, OPEN APPROACH, DIAGNOSTIC (10/27/16) EXCISION OF STOMACH, ENDO, DIAGN (09/13/16) EXCISION OF STOMACH, PYLORUS, ENDO, DIAGN (03/14/15) EXTRACTION OF LEFT FOOT SKIN, EXTERNAL APPROACH (10/07/16) EXTRACTION OF LEFT LOWER LEG SKIN, EXTERNAL APPROACH (06/16/16) HEMODIALYSIS (01/01/15) INCIS W REM OF FORIEGN BODY OR DEV FROM SKIN & SUBCUT TISSUE (05/27/13) INDIVID PSYCHOTHERAP NEC (04/20/13) INJECT/INFUSE NEC (11/09/13) INSERT LENS AT CATAR EXT (09/23/14) INSERTION OF INFUSION DEV INTO SUP VENA CAVA, PERC APPROACH (10/27/16) INSPECTION OF UPPER INTESTINAL TRACT, ENDO (03/10/16) OCCUPATIONAL THERAPY (04/30/13) OTHER GROUP THERAPY (04/20/13) OTHER SKIN & SUBQ I D (07/17/13) PERFORMANCE OF URINARY FILTRATION, MULTIPLE (01/11/17) PERFORMANCE OF URINARY FILTRATION, SINGLE (10/04/16) PHYSICAL THERAPY NEC (04/30/13) REMOVAL OF INFUSION DEV FROM GREAT VESSEL, COURTESY DRIVER APPROACH (10/16/16) REMOVAL OF INFUSION DEVICE FROM GREAT VESSEL, PERC APPROACH (10/27/16) TRANSFUSE NONAUT RED BLOOD CELLS IN PERIPH VEIN, PERC (06/10/15) ULTRASONOGRAPHY OF RIGHT AND LEFT HEART, TRANSESOPHAGEAL (06/19/15) ULTRASONOGRAPHY OF SUPERIOR VENA CAVA, GUIDANCE (10/07/16) Family History: States: Diabetes - Social History Hx Tobacco Use: No Hx Alcohol Use: No Hx Substance Use: No - Immunization History Hx Tetanus Toxoid Vaccination: Yes Hx Influenza Vaccination: Yes Hx Pneumococcal Vaccination: Yes Review Of Systems Except As Marked, All Systems Reviewed And Found Negative. Gastrointestinal: Positive for: Vomiting, Abdominal Pain, Diarrhea Physical Exam - Physical Exam Appears: Well Skin: Normal Color Head: Atraumatic Eye(s): bilateral: Normal Inspection Ear(s): Bilateral: Normal Nose: Normal Oral Mucosa: Moist Neck: Normal Lymphatic: Deferred Chest: Symmetrical Cardiovascular: Rhythm Regular Respiratory: Normal Breath Sounds Gastrointestinal/Abdominal: Bowel Sounds, Soft, Tenderness (diffuse tenderness) Extremity: Bilateral: Atraumatic Additional Physical Exam Comments: Pt has av fistula to left arm with good thrill ED Course And Treatment - Laboratory Results Result Diagrams: 10/16/17 08:56 10/16/17 08:56 O2 Sat by Pulse Oximetry: 89 Medical Decision Making Medical Decision Makin y F with esrd on hd presented with acute gastroenteritis/ abdominal pain -labs -pepcid -reglan -ct abd/pelvis with po contrast -will reassess Disposition - Disposition Disposition: HOSPITALIZED Disposition Time: 11:09 Condition: GOOD Forms: [employer] (Welsh) - Clinical Impression Clinical Impression: Abdominal pain, Hyperkalemia Decision To Admit - Pt Status Changed To: Hospital Disposition Of: Inpatient - Admit Certification Admit to Inpatient:: After my assessment, the patient will require hospitalization for at least two midnights. This is because of the severity of symptoms shown, intensity of services needed, and/or the medical risk in this patient being treated as an outpatient. - InPatient: Physician Admission Certification: I certify that this patient requires 2 or more midnights of care for the following reason:: Hyperkalemia. Acute gastroenteritis. Abdominal pain. ESRD - . Bed Request Type: Telemetry Patient Diagnosis: Abdominal pain, Hyperkalemia, Gastroenteritis
[2017-10-16 09:14] LABS: BASO # 0.2 K/uL (0.0-0.2); BASO % 1.5 % (0.0-2.0); EOS # 0.8 K/uL (0.0-0.7); EOS % 7.9 % (0.0-4.0); LYMPH # 1.7 K/uL (1.0-4.3); LYMPH % 15.4 % (20.0-40.0); MEAN CORPUSCULAR HEMOGLOBIN 33.7 pg (27.0-31.0); MEAN CORPUSCULAR HGB CONC 34.5 g/dL (33.0-37.0); MEAN PLATELET VOLUME 8.3 fL (7.2-11.7); MONO # 0.7 K/uL (0.0-0.8); MONO % 6.3 % (0.0-10.0); NEUT # 7.4 K/uL (1.8-7.0); NEUT % 68.9 % (50.0-75.0); NRBC % 0.1 % (0.0-2.0); RBC 2.95 Mil/uL (3.80-5.20); RED CELL DISTRIBUTION WIDTH 15.9 % (11.5-14.5); WHITE BLOOD COUNT 10.7 K/uL (4.8-10.8)
[2017-10-16 09:17] LABS: HEMOGLOBIN 9.9 g/dL (11.0-16.0); MEAN CELL VOLUME 97.8 fL (81.0-99.0)
[2017-10-16] MEDS ORDERED: Iohexol 240 (50 ml) ONE (09:17)
[2017-10-16 09:28] LABS: ALB/GLOB RATIO 1.1 (1.0-2.1); ALBUMIN 4.2 g/dL (3.5-5.0); CALCIUM 8.7 mg/dl (8.6-10.4)
--- NOTE | 2017-10-16 14:36 | CP.PCM.CON ---
History of Present Illness - History of Present Illness History of Present Illness: Nephrology Consultation Note: Assessment: Stable Acute Gastroenteritis Missed HD with hyperkalemia Diabetic chronic Kidney Disease (E11.22) Hypertensive Chronic Kidney Disease (I12.0) End stage renal disease (N18.6) dependence on hemodialysis (Z99.2) (MWF) via AVF Anemia (D64.9), Hyperphosphatemia (E83.39), Secondary Hyperparathyroidism (E21.1 ), HTN (I12.0) Plan: Will plan for HD today as ordered. Will plan for dialysis tomorrow per MWF schedule. Continue with Nephrovite 1 tab/day. PRBC as needed for anemia. on EDMAR with dialysis as last Hb 9.9 Continue with phos binders, check phos level BP control with meds as ordered. Patient not on RAAS shay as tendency for hyperkalemia Glycemic control, Dialysis consistent diet Further work up/management as per primary team Dose meds/antibiotics (if needed) for ESRD status. Avoid fleets enema/magnesium based laxatives. Thanks for allowing me to participate in care of your patient. Will follow patient with you. Please call if any Qs. d/w ER Dr Aurelio Brar Office: [phone] Chief Complaint;feel sick HPI: Pt is a 42 F with hx of ESRD on hemodialysis (MWF) via AVF @ [facility] , last dialysis Sunday, chronic anemia, hyperphosphatemia, secondary hyperparathyroidism, Diabetes Mellitus, hypertension presented with complaints of feeling sick since sunday with pain abdomen, nausea/vomitting and loose stool Renal consult requested for ESRD management. also reports cough ROS: Cardiovascular: No chest pain. Pulmonary: No shortness of breath Gastrointestinal: c/o abdominal pain c/o nausea. c/o vomiting and loose stool Genitourinary: No pain while urinating. Denies blood in urine. makes small amount of urine All other negative except as mentioned in HPI Physical Examination: General Appearance: Comfortable, in no acute respiratory distress, co-operative . Vitals reviewed and noted as below Head; Atraumatic, normocephalic ENT: no ulcers no thrush. Tongue is midline. Oropharynx: no rash or ulcers. EYES: Pupils are equal, round and reactive to light accommodation. Eye muscles and extraocular movement intact. Sclera is anicteric. Neck; supple no lymphadenopathy, no thyromegaly or bruit Lungs: Normal respiratory rate/effort. Breath sounds bilateral equal and bibasal wheeze Heart: Normal rate. s1s2 normal. No rub or gallop. Extremities: no edema. No varicose veins Neurological: Patient is alert, awake and oriented to person, place and time. No focal deficit. Strength bilateral appropriate and equal Skin: Warm and dry. Normal turgor. No rash. Palpitation: Normal elasticity for age Abdomen: Abdomen is soft. Bowel sounds +. There is mild diffuse abdominal tenderness, no guarding/rigidity or organomegaly Psych: normal insight and normal affect/mood MSK: no joint tenderness or swelling. Digits and nails normal, no deformity : kidney or bladder not palpable Access: AVF Labs/imaging reviewed. Past medical history, past surgical history, family history, social history, allergy reviewed and noted as below Family Hx: no hx of CKD. Non contributory Past Patient History - Infectious Disease Hx of Infectious Diseases: None - Past Medical History & Family History Past Medical History?: Yes - Past Social History Smoking Status: Never Smoked - CARDIAC Hx Hypercholesterolemia: Yes Hx Hypertension: Yes - PULMONARY Hx Pneumonia: Yes - HEENT Hx HEENT Problems: Yes Hx Cataracts: Yes (09/23/14 left) - RENAL Hx Chronic Kidney Disease: Yes - ENDOCRINE/METABOLIC Hx Endocrine Disorders: Yes Hx Diabetes Mellitus Type 2: Yes - HEMATOLOGICAL/ONCOLOGICAL Hx Anemia: Yes - INTEGUMENTARY Other/Comment: right great toe amputation 2009 - MUSCULOSKELETAL/RHEUMATOLOGICAL Hx Falls: Yes - GASTROINTESTINAL Hx Gastritis: Yes (diabetic gastroparesis) - GENITOURINARY/GYNECOLOGICAL Hx Genitourinary Disorders: Yes Other/Comment: renal failure - PSYCHIATRIC Hx Depression: Yes Hx Substance Use: No - SURGICAL HISTORY Hx Cholecystectomy: Yes (2010) - ANESTHESIA Hx Anesthesia: Yes Hx Anesthesia Reactions: No Hx Malignant Hyperthermia: No Meds Allergies/Adverse Reactions: Allergies Allergy/AdvReac Type Severity Reaction Status Date / Time ketorolac tromethamine Allergy Verified 10/16/17 06:55 [From Toradol] morphine Allergy Verified 10/16/17 06:55 tramadol Allergy RASH Verified 10/16/17 06:55 - Medications Medications: Current Medications Epoetin Cornelius (Procrit) 4,000 unit IV MWF [facility] Heparin Sodium (Porcine) (Heparin) 2,000 units IVP MWF [facility] Last Admin: 10/16/17 14:12 Dose: 2,000 units Metoclopramide HCl (Reglan) 10 mg IVP ACHS [facility] Results - Vital Signs Recent Vital Signs: Last Vital Signs Temp 97.6 F 10/16/17 12:05 Pulse 75 10/16/17 12:05 Resp 20 10/16/17 12:05 BP 140/77 10/16/17 14:10 Pulse Ox 98 10/16/17 12:05 - Labs Result Diagrams: 10/16/17 08:56 10/16/17 08:56 Labs: Laboratory Results - last 24 hr 10/16/17 10/16/17 10/16/17 06:57 08:56 08:56 WBC 10.7 RBC 2.95 L Hgb 9.9 L D Hct 28.8 L MCV 97.8 D MCH 33.7 H MCHC 34.5 RDW 15.9 H Plt Count 225 MPV 8.3 Neut % (Auto) 68.9 Lymph % (Auto) 15.4 L [place] % (Auto) 6.3 Eos % (Auto) 7.9 H Baso % (Auto) 1.5 Neut # (Auto) 7.4 H Lymph # (Auto) 1.7 [place] # (Auto) 0.7 Eos # (Auto) 0.8 H Baso # (Auto) 0.2 Sodium 140 Potassium 5.9 H Chloride 95 L Carbon Dioxide 27 Anion Gap 24 H BUN 46 H Creatinine 10.7 H* Est GFR ( Amer) 5 Est GFR (Non-Af Amer) 4 POC Glucose (mg/dL) 125 H Random Glucose 105 Calcium 8.7 Total Bilirubin 0.8 AST 15 ALT 10 Alkaline Phosphatase 147 H D Total Protein 7.9 Albumin 4.2 Globulin 3.7 Albumin/Globulin Ratio 1.1 Lipase 32
[2017-10-16] MEDS ORDERED: Albuterol-Ipratrop 3 mg / 0.5 (3 ml) UD INH STA (16:42)
[2017-10-16] MEDS: (Novolog) Insulin Aspart, Recombinant 100 u/ml 10 ml vial SC SCH ×2 (16:51→21:46)
[2017-10-16] MEDS: HYDROmorphone 0.5 mg/0.5 ml ISec IVP PRN ×2 (16:58→22:14)
[2017-10-16] MEDS: Albuterol-Ipratrop 3 mg / 0.5 (3 ml) UD INH SCH (19:40)
[2017-10-17] MEDS: Albuterol-Ipratrop 3 mg / 0.5 (3 ml) UD INH SCH ×5 (01:03→19:33)
[2017-10-17] MEDS: HYDROmorphone 0.5 mg/0.5 ml ISec IVP PRN ×3 (04:27→21:47)
[2017-10-17] MEDS: (Novolog) Insulin Aspart, Recombinant 100 u/ml 10 ml vial SC SCH ×4 (07:42→21:47)
[2017-10-17] MEDS ORDERED: MethylPREDNISolone 40 mg Vial IM STA (07:48)
[2017-10-17] MEDS ORDERED: Iohexol 240 (50 ml) PO ONE (08:15)
--- NOTE | 2017-10-17 08:29 | CP.PCM.HP ---
History of Present Illness - History of Present Illness History of Present Illness: CC: cough, shortness of breath 42 year old F with history of type 1 DM, not on any meds, chronic b/l LE ischemia and PVD h/o prior bypass in legs and amputation, ESRD on HD (M, W, F) last HD was last Sunday, partially dependent on family members for ADL presented with 1 wek h/o cough, congestion, shortness of breath associated with chest pain, abdominal pain, vomiting and diarrhea since last Sunday. Pt states that she has been having diarrhea five times a days and multiple bouts of vomiting. She also complains of diffuse abdominal pain and relates the pain to her gastroporesis. Denies any chest pain, shortness of breath, fever or chills. Present on Admission - Present on Admission Any Indicators Present on Admission: Yes Review of Systems - Review of Systems Systems not reviewed;Unavailable: Acuity of Condition, Respiratory Distress - Constitutional Constitutional: Fever, Malaise, Weakness - EENT Eyes: absent: As Per HPI, Blind Spots, Blurred Vision, Change in Vision, Decreased Night Vision, Diplopia, Discharge, Dry Eye, Exophthalmos, Floaters, Irritation, Itchy Eyes, Loss of Peripheral Vision, Pain, Photophobia, Requires Corrective Lenses, Sees Flashes, Spots in Vision, Tunnel Vision, Other Visual Disturbances, Loss of Vision, Other Nose/Mouth/Throat: Nasal Congestion - Cardiovascular Cardiovascular: Dyspnea, Dyspnea on Exertion - Respiratory Respiratory: Cough, Dyspnea - Gastrointestinal Gastrointestinal: Abdominal Pain, Diarrhea, Nausea, Vomiting - Genitourinary Genitourinary: absent: As Per HPI, Change in Urinary Stream, Difficulty Urinating, Dysuria, Flank Pain, Hematuria, Pyuria, Nocturia, Urinary Incontinence, Urinary Frequency, Urinary Hesitance, Urinary Urgency, Voiding Freq/Small Amts, Freq UTI, Hx Renal/Bladder Calculi, Hx /Renal Surgery, Bladder Distension, Other - Musculoskeletal Musculoskeletal: Muscle Weakness, Numbness, Stiffness, Tingling - Integumentary Integumentary: Dry Skin, Skin Ulcer Past Patient History - Infectious Disease Hx of Infectious Diseases: None - Past Medical History & Family History Past Medical History?: Yes - Past Social History Smoking Status: Never Smoked - CARDIAC Hx Cardiac Disorders: Yes Hx Hypercholesterolemia: Yes Hx Hypertension: Yes - PULMONARY Hx Respiratory Disorders: Yes Hx Pneumonia: Yes - NEUROLOGICAL Hx Neurological Disorder: No - HEENT Hx HEENT Problems: Yes Hx Cataracts: Yes (09/23/14 left) - RENAL Hx Chronic Kidney Disease: Yes Hx Dialysis: Yes Date of Last Dialysis Treatment: 10/16/17 - ENDOCRINE/METABOLIC Hx Endocrine Disorders: Yes Hx Diabetes Mellitus Type 2: Yes - HEMATOLOGICAL/ONCOLOGICAL Hx Blood Disorders: Yes Hx Anemia: Yes - INTEGUMENTARY Hx Dermatological Problems: Yes Other/Comment: right great toe amputation 2009 - MUSCULOSKELETAL/RHEUMATOLOGICAL Hx Musculoskeletal Disorders: Yes Hx Falls: Yes - GASTROINTESTINAL Hx Gastrointestinal Disorders: Yes Hx Gastritis: Yes (diabetic gastroparesis) - GENITOURINARY/GYNECOLOGICAL Hx Genitourinary Disorders: Yes Other/Comment: renal failure - PSYCHIATRIC Hx Psychophysiologic Disorder: Yes Hx Depression: Yes Hx Substance Use: No - SURGICAL HISTORY Hx Surgeries: Yes Hx Cholecystectomy: Yes (2010) - ANESTHESIA Hx Anesthesia: Yes Hx Anesthesia Reactions: No Hx Malignant Hyperthermia: No Meds Allergies/Adverse Reactions: Allergies Allergy/AdvReac Type Severity Reaction Status Date / Time ketorolac tromethamine Allergy Verified 10/16/17 06:55 [From Toradol] morphine Allergy Verified 10/16/17 06:55 tramadol Allergy RASH Verified 10/16/17 06:55 Physical Exam - Constitutional Additional comments: middle aged female in moderate resp distress coughing, congested, wheezing - Eye Exam Eye Exam: EOMI, Normal appearance, PERRL Pupil Exam: NORMAL ACCOMODATION, PERRL - ENT Exam ENT Exam: Mucous Membranes Moist, Normal Exam - Neck Exam Neck exam: Positive for: Normal Inspection - Respiratory Exam Respiratory Exam: Decreased Breath Sounds, Rhonchi, Wheezes - Cardiovascular Exam Cardiovascular Exam: REGULAR RHYTHM, +S1, +S2 Additional comments: S3 positive - GI/Abdominal Exam GI & Abdominal Exam: Normal Bowel Sounds, Soft. absent: Tenderness - Rectal Exam Rectal Exam: Deferred - Extremities Exam Additional comments: chronic changes in b/l LE dry skin and multiple amputations darkened skin Results - Vital Signs Recent Vital Signs: Last Vital Signs Temp 98.4 F 10/17/17 04:34 Pulse 76 10/17/17 04:34 Resp 20 10/17/17 04:34 BP 147/74 10/17/17 04:34 Pulse Ox 96 10/17/17 04:34 - Labs Result Diagrams: 10/16/17 08:56 10/16/17 08:56 Labs: Laboratory Results - last 24 hr 10/16/17 10/16/17 10/16/17 08:56 08:56 21:12 WBC 10.7 RBC 2.95 L Hgb 9.9 L D Hct 28.8 L MCV 97.8 D MCH 33.7 H MCHC 34.5 RDW 15.9 H Plt Count 225 MPV 8.3 Neut % (Auto) 68.9 Lymph % (Auto) 15.4 L [place] % (Auto) 6.3 Eos % (Auto) 7.9 H Baso % (Auto) 1.5 Neut # (Auto) 7.4 H Lymph # (Auto) 1.7 [place] # (Auto) 0.7 Eos # (Auto) 0.8 H Baso # (Auto) 0.2 Sodium 140 Potassium 5.9 H Chloride 95 L Carbon Dioxide 27 Anion Gap 24 H BUN 46 H Creatinine 10.7 H* Est GFR ( Amer) 5 Est GFR (Non-Af Amer) 4 POC Glucose (mg/dL) 150 H Random Glucose 105 Calcium 8.7 Total Bilirubin 0.8 AST 15 ALT 10 Alkaline Phosphatase 147 H D Total Protein 7.9 Albumin 4.2 Globulin 3.7 Albumin/Globulin Ratio 1.1 Lipase 32 10/17/17 06:22 WBC RBC Hgb Hct MCV MCH MCHC RDW Plt Count MPV Neut % (Auto) Lymph % (Auto) [place] % (Auto) Eos % (Auto) Baso % (Auto) Neut # (Auto) Lymph # (Auto) [place] # (Auto) Eos # (Auto) Baso # (Auto) Sodium Potassium Chloride Carbon Dioxide Anion Gap BUN Creatinine Est GFR ( Amer) Est GFR (Non-Af Amer) POC Glucose (mg/dL) 97 Random Glucose Calcium Total Bilirubin AST ALT Alkaline Phosphatase Total Protein Albumin Globulin Albumin/Globulin Ratio Lipase Assessment & Plan (1) COPD with acute exacerbation Assessment and Plan: nebulizer oxygen Tracheobronchitis ( rule out onemonia) Paln: antibiotics salmedrol Status: Acute (2) Abdominal pain Status: Acute (3) Diabetic foot ulcer Status: Acute (4) Hypertension Status: Chronic (5) Hypertensive CKD, ESRD on dialysis Status: Chronic (6) Dyspnea Status: Resolved (7) Abdominal pain Status: Inactive
--- NOTE | 2017-10-17 08:35 | CP.PCM.PN ---
Subjective - Date & Time of Evaluation Date of Evaluation: 10/17/17 Time of Evaluation: 20:00 - Subjective Subjective: Pt seen and evaluated at bedside Objective - Vital Signs/Intake and Output Vital Signs (last 24 hours): Temp Pulse Resp BP Pulse Ox 98.4 F 76 20 147/74 96 10/17/17 04:34 10/17/17 04:34 10/17/17 04:34 10/17/17 04:34 10/17/17 04:34 - Medications Medications: Current Medications Acetaminophen (Tylenol 325mg Tab) 650 mg PO Q4 PRN PRN Reason: Fever >100.4 F Last Admin: 10/16/17 21:45 Dose: 650 mg Albuterol/Ipratropium (Duoneb 3 Mg/0.5 Mg (3 Ml) Ud) 3 ml INH RQ6 [facility] Last Admin: 10/17/17 07:51 Dose: 3 ml Calcium Acetate (Phoslo) 667 mg PO TIDCC [facility] Last Admin: 10/16/17 18:14 Dose: 667 mg Carvedilol (Coreg) 12.5 mg PO BID [facility] Last Admin: 10/16/17 18:14 Dose: 12.5 mg Clonidine HCl (Catapres-Tts3 0.3 Mg/24 Hr) 1 patch TD Q7D@2200 [facility] Last Admin: 10/16/17 21:45 Dose: 1 patch Diphenhydramine HCl (Benadryl) 25 mg PO Q8 PRN PRN Reason: Itching / Pruritus Last Admin: 10/16/17 22:14 Dose: 25 mg Epoetin Cornelius (Procrit) 4,000 unit IV [facility] Gabapentin (Neurontin) 100 mg PO TID [facility] Last Admin: 10/16/17 18:14 Dose: 100 mg Heparin Sodium (Porcine) (Heparin) 2,000 units IVP [facility] Last Admin: 10/16/17 14:12 Dose: 2,000 units Hydralazine HCl (Apresoline) 50 mg PO Q8 [facility] Last Admin: 10/17/17 05:40 Dose: 50 mg Hydromorphone HCl (Dilaudid) 0.5 mg IVP Q6H PRN PRN Reason: Pain, severe (8-10) Last Admin: 10/17/17 04:27 Dose: 0.5 mg Ceftriaxone Sodium 1 gm/ (Sodium Chloride) 100 mls @ 100 mls/hr IVPB DAILY@ 0800 [facility] PRN Reason: Protocol Insulin Aspart (Novolog) 0 unit SC ACHS [facility] PRN Reason: Protocol Last Admin: 10/17/17 07:42 Dose: Not Given Methylprednisolone (Solu-Medrol) 40 mg IVP Q12 [facility] Metoclopramide HCl (Reglan) 5 mg IVP ACHS [facility] Last Admin: 10/17/17 06:33 Dose: 5 mg Nifedipine (Procardia Xl) 90 mg PO DAILY [facility] Ondansetron HCl (Zofran Inj) 4 mg IVP Q8 PRN PRN Reason: Nausea/Vomiting Pantoprazole Sodium (Protonix Inj) 40 mg IVP DAILY [facility] Rosuvastatin Calcium (Crestor) 5 mg PO HS [facility] Last Admin: 10/16/17 21:45 Dose: 5 mg - Labs Labs: 10/16/17 08:56 10/16/17 08:56 Assessment and Plan (1) COPD with acute exacerbation Status: Acute (2) Abdominal pain Status: Acute (3) Diabetic foot ulcer Status: Acute (4) Hypertension Status: Chronic (5) Hypertensive CKD, ESRD on dialysis Status: Chronic
--- NOTE | 2017-10-17 09:07 | RAD ---
HISTORY: wheezing COMPARISON: Chest radiograph dated 11/01/2016 FINDINGS: LUNGS: Prominence of pulmonary vasculature may be secondary to AP technique and/or pulmonary vascular congestive. No focal consolidated. PLEURA: No significant pleural effusion identified, no pneumothorax apparent. CARDIOVASCULAR: Normal. OSSEOUS STRUCTURES: Changed. VISUALIZED UPPER ABDOMEN: Normal. OTHER FINDINGS: None. IMPRESSION: Prominence of pulmonary vasculature may be secondary to AP technique and/or pulmonary vascular congestion. No focal consolidation or pleural effusion.
[2017-10-17] MEDS: EPOETIN ALFA 4,000 UNIT/ML ML Dialysis IV SCH (11:29)
[2017-10-17] MEDS: NIFEdipine 90 mg ER Tab PO SCH (12:23)
[2017-10-17] MEDS: MethylPREDNISolone 40 mg Vial IVP SCH ×2 (12:23→21:46)
--- NOTE | 2017-10-17 15:21 | CP.PCM.PN ---
Subjective - Date & Time of Evaluation Date of Evaluation: 10/17/17 Time of Evaluation: 09:00 - Subjective Subjective: Nephrology Consultation Note: Assessment: Stable COPD exacerbation, Acute Gastroenteritis Missed HD with hyperkalemia Diabetic chronic Kidney Disease (E11.22) Hypertensive Chronic Kidney Disease (I12.0) End stage renal disease (N18.6) dependence on hemodialysis (Z99.2) (MWF) via AVF Anemia (D64.9), Hyperphosphatemia (E83.39), Secondary Hyperparathyroidism (E21.1 ), HTN (I12.0) Plan: Will plan for HD today as ordered per [facility] schedule. Continue with Nephrovite 1 tab/day. PRBC as needed for anemia. on EDMAR with dialysis as last Hb 9.9 Continue with phos binders, check phos level BP control with meds as ordered. Patient not on RAAS shay as tendency for hyperkalemia Glycemic control, Dialysis consistent diet Further work up/management as per primary team Dose meds/antibiotics (if needed) for ESRD status. Avoid fleets enema/magnesium based laxatives. Thanks for allowing me to participate in care of your patient. Will follow patient with you. Please call if any Qs. Dr Aurelio Brar Office: [phone] Chief Complaint; feel sick HPI: Pt is a 42 F with hx of ESRD on hemodialysis (MWF) via AVF @ [facility] , last dialysis Sunday, chronic anemia, hyperphosphatemia, secondary hyperparathyroidism, Diabetes Mellitus, hypertension presented with complaints of feeling sick since sunday with pain abdomen, nausea/vomitting and loose stool Renal consult requested for ESRD management. also reports cough ROS: Cardiovascular: No chest pain. Pulmonary: No shortness of breath but has cough and wheeze Gastrointestinal: improved abdominal pain no nausea. no further vomiting and loose stool Genitourinary: No pain while urinating. Denies blood in urine. makes small amount of urine All other negative except as mentioned in HPI Physical Examination: General Appearance: Comfortable, in no acute respiratory distress, co-operative . Vitals reviewed and noted as below Head; Atraumatic, normocephalic ENT: no ulcers no thrush. Tongue is midline. Oropharynx: no rash or ulcers. EYES: Pupils are equal, round and reactive to light accommodation. Eye muscles and extraocular movement intact. Sclera is anicteric. Neck; supple no lymphadenopathy, no thyromegaly or bruit Lungs: Normal respiratory rate/effort. Breath sounds bilateral equal and wheeze Heart: Normal rate. s1s2 normal. No rub or gallop. Extremities: no edema. No varicose veins Neurological: Patient is alert, awake and oriented to person, place and time. No focal deficit. Strength bilateral appropriate and equal Skin: Warm and dry. Normal turgor. No rash. Palpitation: Normal elasticity for age Abdomen: Abdomen is soft. Bowel sounds +. There is mild diffuse abdominal tenderness, no guarding/rigidity or organomegaly Psych: normal insight and normal affect/mood MSK: no joint tenderness or swelling. Digits and nails normal, no deformity : kidney or bladder not palpable Access: AVF Labs/imaging reviewed. Past medical history, past surgical history, family history, social history, allergy reviewed and noted as below Family Hx: no hx of CKD. Non contributory Objective - Vital Signs/Intake and Output Vital Signs (last 24 hours): Temp Pulse Resp BP Pulse Ox 98.2 F 79 18 128/76 99 10/17/17 11:20 10/17/17 12:00 10/17/17 12:00 10/17/17 12:00 10/17/17 12:00 - Medications Medications: Current Medications Acetaminophen (Tylenol 325mg Tab) 650 mg PO Q4 PRN PRN Reason: Fever >100.4 F Last Admin: 10/16/17 21:45 Dose: 650 mg Albuterol/Ipratropium (Duoneb 3 Mg/0.5 Mg (3 Ml) Ud) 3 ml INH RQ6 [facility] Last Admin: 10/17/17 14:05 Dose: 3 ml Calcium Acetate (Phoslo) 667 mg PO TIDCC [facility] Last Admin: 10/17/17 12:22 Dose: Not Given Carvedilol (Coreg) 12.5 mg PO BID [facility] Last Admin: 10/17/17 12:22 Dose: Not Given Clonidine HCl (Catapres-Tts3 0.3 Mg/24 Hr) 1 patch TD Q7D@2200 [facility] Last Admin: 10/16/17 21:45 Dose: 1 patch Diphenhydramine HCl (Benadryl) 25 mg PO Q8 PRN PRN Reason: Itching / Pruritus Last Admin: 10/16/17 22:14 Dose: 25 mg Epoetin Cornelius (Procrit) 4,000 unit IV MWF [facility] Last Admin: 10/17/17 11:29 Dose: 4,000 unit Gabapentin (Neurontin) 100 mg PO TID [facility] Last Admin: 10/17/17 14:58 Dose: Not Given Heparin Sodium (Porcine) (Heparin) 2,000 units IVP MWF [facility] Last Admin: 10/17/17 11:27 Dose: 2,000 units Heparin Sodium (Porcine) (Heparin) 5,000 units SC Q12 [facility] Last Admin: 10/17/17 12:22 Dose: Not Given Hydralazine HCl (Apresoline) 50 mg PO Q8 [facility] Last Admin: 10/17/17 14:58 Dose: Not Given Hydromorphone HCl (Dilaudid) 0.5 mg IVP Q6H PRN PRN Reason: Pain, severe (8-10) Last Admin: 10/17/17 04:27 Dose: 0.5 mg Ceftriaxone Sodium 1 gm/ (Sodium Chloride) 100 mls @ 100 mls/hr IVPB DAILY@ 0800 [facility] PRN Reason: Protocol Last Admin: 10/17/17 08:44 Dose: Not Given Insulin Aspart (Novolog) 0 unit SC [facility] PRN Reason: Protocol Last Admin: 10/17/17 12:22 Dose: Not Given Methylprednisolone (Solu-Medrol) 40 mg IVP Q12 [facility] Last Admin: 10/17/17 12:23 Dose: Not Given Metoclopramide HCl (Reglan) 5 mg IVP ACHS [facility] Last Admin: 10/17/17 12:23 Dose: Not Given Nifedipine (Procardia Xl) 90 mg PO DAILY [facility] Last Admin: 10/17/17 12:23 Dose: Not Given Ondansetron HCl (Zofran Inj) 4 mg IVP Q8 PRN PRN Reason: Nausea/Vomiting Pantoprazole Sodium (Protonix Inj) 40 mg IVP DAILY [facility] Last Admin: 10/17/17 12:23 Dose: Not Given Rosuvastatin Calcium (Crestor) 5 mg PO HS [facility] Last Admin: 10/16/17 21:45 Dose: 5 mg Vitamin B Complex/Vit C/Folic Acid (Nephro-Anjelica) 1 tab PO 0800 [facility] - Labs Labs: 10/16/17 08:56 10/16/17 08:56
[2017-10-17] MEDS ORDERED: methylPREDNISolone 125 MG in Sodium Chloride 0.9% 100 ML IVPB STA (19:16)
[2017-10-17] MEDS ORDERED: guaiFENesin-Codeine 100-10mg/5ml Syrup (10ml) UD PO STA (19:17)
[2017-10-18] MEDS: Albuterol-Ipratrop 3 mg / 0.5 (3 ml) UD INH SCH ×4 (01:51→19:14)
[2017-10-18] MEDS: HYDROmorphone 0.5 mg/0.5 ml ISec IVP PRN ×6 (01:56→23:25)
[2017-10-18] MEDS: Multivitamin Vitamin B Complex (Nephro-Vite) Tab PO SCH (09:17)
[2017-10-18] MEDS: (Novolog) Insulin Aspart, Recombinant 100 u/ml 10 ml vial SC SCH ×4 (09:55→21:19)
[2017-10-18] MEDS: NIFEdipine 90 mg ER Tab PO SCH (10:01)
[2017-10-18] MEDS: MethylPREDNISolone 40 mg Vial IVP SCH ×3 (10:02→22:46)
[2017-10-18] MEDS ORDERED: guaiFENesin-Codeine 100-10mg/5ml Syrup (10ml) UD PO STA (11:07)
[2017-10-18] MEDS ORDERED: Albuterol-Ipratrop 3 mg / 0.5 (3 ml) UD INH STA (11:09)
[2017-10-18 15:05] LABS: VENOUS BLOOD GAS BASE EXCESS 5.3 mmol/L (0.0-2.0); VENOUS BLOOD GAS PCO2 49 mmHg (40-60); VENOUS BLOOD GAS PO2 41 mm/Hg (30-55); VENOUS BLOOD PH 7.41 (7.32-7.43)
--- NOTE | 2017-10-18 16:14 | CP.PCM.PN ---
Subjective - Date & Time of Evaluation Date of Evaluation: 10/18/17 Time of Evaluation: 16:12 - Subjective Subjective: Nephrology Consultation Note: Assessment: Stable COPD exacerbation, Acute Gastroenteritis Missed HD with hyperkalemia Diabetic chronic Kidney Disease (E11.22) Hypertensive Chronic Kidney Disease (I12.0) End stage renal disease (N18.6) dependence on hemodialysis (Z99.2) (MWF) via AVF Anemia (D64.9), Hyperphosphatemia (E83.39), Secondary Hyperparathyroidism (E21.1 ), HTN (I12.0) Plan: Will plan for HD tomorrow as ordered per [facility] schedule. Continue with Nephrovite 1 tab/day. PRBC as needed for anemia. on EDMAR with dialysis as last Hb 9.9 Continue with phos binders, check phos level BP control with meds as ordered. Patient not on RAAS shay as tendency for hyperkalemia. increased hydralazine 100 mg q8 Glycemic control, Dialysis consistent diet Further work up/management as per primary team Dose meds/antibiotics (if needed) for ESRD status. Avoid fleets enema/magnesium based laxatives. Thanks for allowing me to participate in care of your patient. Will follow patient with you. Please call if any Qs. Dr Aurelio Brar Office: [phone] HPI: Pt is a 42 F with hx of ESRD on hemodialysis (MWF) via AVF @ [facility] , last dialysis Sunday, chronic anemia, hyperphosphatemia, secondary hyperparathyroidism, Diabetes Mellitus, hypertension presented with complaints of feeling sick since sunday with pain abdomen, nausea/vomitting and loose stool Renal consult requested for ESRD management. also reports cough ROS: Cardiovascular: No chest pain. Pulmonary: No shortness of breath but has cough and wheeze Gastrointestinal: improved abdominal pain no nausea. no further vomiting and loose stool Genitourinary: No pain while urinating. Denies blood in urine. makes small amount of urine All other negative except as mentioned in HPI Physical Examination: General Appearance: Comfortable, in no acute respiratory distress, co-operative . Vitals reviewed and noted as below Head; Atraumatic, normocephalic ENT: no ulcers no thrush. Tongue is midline. Oropharynx: no rash or ulcers. EYES: Pupils are equal, round and reactive to light accommodation. Eye muscles and extraocular movement intact. Sclera is anicteric. Neck; supple no lymphadenopathy, no thyromegaly or bruit Lungs: Normal respiratory rate/effort. Breath sounds bilateral equal and wheeze better Heart: Normal rate. s1s2 normal. No rub or gallop. Extremities: no edema. No varicose veins Neurological: Patient is alert, awake and oriented to person, place and time. No focal deficit. Strength bilateral appropriate and equal Skin: Warm and dry. Normal turgor. No rash. Palpitation: Normal elasticity for age Abdomen: Abdomen is soft. Bowel sounds +. There is mild diffuse abdominal tenderness, no guarding/rigidity or organomegaly Psych: normal insight and normal affect/mood MSK: no joint tenderness or swelling. Digits and nails normal, no deformity : kidney or bladder not palpable Access: [facility] Labs/imaging reviewed. Past medical history, past surgical history, family history, social history, allergy reviewed and noted as below Family Hx: no hx of CKD. Non contributory Objective - Vital Signs/Intake and Output Vital Signs (last 24 hours): Temp Pulse Resp BP Pulse Ox 97.8 F 91 H 20 200/84 H 96 10/18/17 15:00 10/18/17 15:00 10/18/17 15:00 10/18/17 15:00 10/18/17 15:00 Intake and Output: 10/18/17 10/18/17 06:59 18:59 Intake Total 300 Balance 300 - Medications Medications: Current Medications Acetaminophen (Tylenol 325mg Tab) 650 mg PO Q4 PRN PRN Reason: Fever >100.4 F Last Admin: 10/16/17 21:45 Dose: 650 mg Albuterol/Ipratropium (Duoneb 3 Mg/0.5 Mg (3 Ml) Ud) 3 ml INH RQ6 [facility] Last Admin: 10/18/17 13:41 Dose: 3 ml Calcium Acetate (Phoslo) 667 mg PO TIDCC [facility] Last Admin: 10/18/17 13:00 Dose: 667 mg Carvedilol (Coreg) 12.5 mg PO BID [facility] Last Admin: 10/18/17 10:01 Dose: 12.5 mg Clonidine HCl (Catapres) 0.3 mg PO Q8 [facility] Last Admin: 10/18/17 13:43 Dose: 0.3 mg Diphenhydramine HCl (Benadryl) 25 mg PO Q8 PRN PRN Reason: Itching / Pruritus Last Admin: 10/17/17 21:53 Dose: 25 mg Epoetin Cornelius (Procrit) 4,000 unit IV [facility]WF [facility] Last Admin: 10/17/17 11:29 Dose: 4,000 unit Gabapentin (Neurontin) 100 mg PO TID [facility] Last Admin: 10/18/17 13:04 Dose: 100 mg Guaifenesin/Dextromethorphan (Robitussin Dm) 10 ml PO Q4H PRN PRN Reason: Cough and congestion Heparin Sodium (Porcine) ([facility]arin) [facility] Last Admin: 10/17/17 11:27 Dose: 2,000 units Heparin Sodium (Porcine) (Heparin) 5,000 units SC Q12 [facility] Last Admin: 10/18/17 10:02 Dose: 5,000 units Hydralazine HCl (Apresoline) 50 mg PO Q8 [facility] Last Admin: 10/18/17 13:05 Dose: 50 mg Hydromorphone HCl (Dilaudid) 0.5 mg IVP Q4 PRN PRN Reason: Pain, severe (8-10) Last Admin: 10/18/17 15:10 Dose: 0.5 mg Ceftriaxone Sodium 1 gm/ (Sodium Chloride) 100 mls @ 100 mls/hr IVPB DAILY@ 0800 [facility] PRN Reason: Protocol Last Admin: 10/18/17 09:17 Dose: 100 mls/hr Insulin Aspart (Novolog) 0 unit SC ACHS [facility] PRN Reason: Protocol Last Admin: 10/18/17 12:09 Dose: Not Given Methylprednisolone (Solu-Medrol) 60 mg IVP Q8 [facility] Last Admin: 10/18/17 13:43 Dose: 60 mg Metoclopramide HCl (Reglan) 5 mg IVP ACHS [facility] Last Admin: 10/18/17 12:00 Dose: Not Given Nifedipine (Procardia Xl) 90 mg PO DAILY [facility] Last Admin: 10/18/17 10:01 Dose: 90 mg Ondansetron HCl (Zofran Inj) 4 mg IVP Q8 PRN PRN Reason: Nausea/Vomiting Pantoprazole Sodium (Protonix Inj) 40 mg IVP DAILY [facility] Last Admin: 10/18/17 10:02 Dose: 40 mg Rosuvastatin Calcium (Crestor) 5 mg PO HS [facility] Last Admin: 10/17/17 21:47 Dose: 5 mg Vitamin B Complex/Vit C/Folic Acid (Nephro-Anjelica) 1 tab PO 0800 [facility] Last Admin: 10/18/17 09:17 Dose: 1 tab - Labs Labs: 10/16/17 08:56 10/16/17 08:56
--- NOTE | 2017-10-18 22:56 | CP.PCM.PN ---
Subjective - Date & Time of Evaluation Date of Evaluation: 10/18/17 Time of Evaluation: 19:45 - Subjective Subjective: Pt seen and examined at bedside Objective - Vital Signs/Intake and Output Vital Signs (last 24 hours): Temp Pulse Resp BP Pulse Ox 97.8 F 89 20 125/73 96 10/18/17 15:00 10/18/17 22:35 10/18/17 15:00 10/18/17 22:35 10/18/17 15:00 - Medications Medications: Current Medications Acetaminophen (Tylenol 325mg Tab) 650 mg PO Q4 PRN PRN Reason: Fever >100.4 F Last Admin: 10/16/17 21:45 Dose: 650 mg Albuterol/Ipratropium (Duoneb 3 Mg/0.5 Mg (3 Ml) Ud) 3 ml INH RQ6 [facility] Last Admin: 10/18/17 19:14 Dose: 3 ml Calcium Acetate (Phoslo) 667 mg PO TIDCC [facility] Last Admin: 10/18/17 18:00 Dose: 667 mg Carvedilol (Coreg) 12.5 mg PO BID [facility] Last Admin: 10/18/17 18:36 Dose: 12.5 mg Clonidine HCl (Catapres) 0.3 mg PO Q8 [facility] Last Admin: 10/18/17 22:36 Dose: 0.3 mg Diphenhydramine HCl (Benadryl) 25 mg PO Q8 PRN PRN Reason: Itching / Pruritus Last Admin: 10/17/17 21:53 Dose: 25 mg Epoetin Cornelius (Procrit) 4,000 unit IV F [facility] Last Admin: 10/17/17 11:29 Dose: 4,000 unit Gabapentin (Neurontin) 100 mg PO TID [facility] Last Admin: 10/18/17 18:36 Dose: 100 mg Guaifenesin/Dextromethorphan (Robitussin Dm) 10 ml PO Q4H PRN PRN Reason: Cough and congestion Heparin Sodium (Porcine) (Heparin) 2,000 units IVP MWF [facility] Last Admin: 10/17/17 11:27 Dose: 2,000 units Heparin Sodium (Porcine) (Heparin) 5,000 units SC Q12 [facility] Last Admin: 10/18/17 22:46 Dose: Not Given Hydralazine HCl (Apresoline) 100 mg PO Q8 [facility] Last Admin: 10/18/17 22:36 Dose: 100 mg Hydromorphone HCl (Dilaudid) 0.5 mg IVP Q4 PRN PRN Reason: Pain, severe (8-10) Last Admin: 10/18/17 19:16 Dose: 0.5 mg Ceftriaxone Sodium 1 gm/ (Sodium Chloride) 100 mls @ 100 mls/hr IVPB DAILY@ 0800 [facility] PRN Reason: Protocol Last Admin: 10/18/17 09:17 Dose: 100 mls/hr Insulin Aspart (Novolog) 0 unit SC ACHS [facility] PRN Reason: Protocol Last Admin: 10/18/17 21:19 Dose: Not Given Methylprednisolone (Solu-Medrol) 60 mg IVP Q8 [facility] Last Admin: 10/18/17 22:46 Dose: 60 mg Metoclopramide HCl (Reglan) 5 mg IVP ACHS [facility] Last Admin: 10/18/17 22:38 Dose: 5 mg Nifedipine (Procardia Xl) 90 mg PO DAILY [facility] Last Admin: 10/18/17 10:01 Dose: 90 mg Ondansetron HCl (Zofran Inj) 4 mg IVP Q8 PRN PRN Reason: Nausea/Vomiting Pantoprazole Sodium (Protonix Inj) 40 mg IVP DAILY [facility] Last Admin: 10/18/17 10:02 Dose: 40 mg Rosuvastatin Calcium (Crestor) 5 mg PO HS [facility] Last Admin: 10/18/17 22:36 Dose: 5 mg Vitamin B Complex/Vit C/Folic Acid (Nephro-Anjelica) 1 tab PO 0800 [facility] Last Admin: 10/18/17 09:17 Dose: 1 tab - Labs Labs: 10/16/17 08:56 10/16/17 08:56 Assessment and Plan (1) COPD with acute exacerbation Status: Acute (2) Abdominal pain Status: Acute (3) Diabetic foot ulcer Status: Acute (4) Hypertension Status: Chronic (5) Hypertensive CKD, ESRD on dialysis Status: Chronic
[2017-10-19] MEDS: Albuterol-Ipratrop 3 mg / 0.5 (3 ml) UD INH SCH ×4 (01:12→19:16)
[2017-10-19] MEDS: MethylPREDNISolone 40 mg Vial IVP SCH ×3 (05:29→21:48)
[2017-10-19] MEDS: HYDROmorphone 0.5 mg/0.5 ml ISec IVP PRN ×3 (08:08→19:20)
[2017-10-19] MEDS: Multivitamin Vitamin B Complex (Nephro-Vite) Tab PO SCH (08:08)
[2017-10-19] MEDS: (Novolog) Insulin Aspart, Recombinant 100 u/ml 10 ml vial SC SCH ×5 (08:57→22:00)
[2017-10-19] MEDS: NIFEdipine 90 mg ER Tab PO SCH (11:14)
--- NOTE | 2017-10-19 12:35 | CP.PCM.PN ---
Subjective - Date & Time of Evaluation Date of Evaluation: 10/19/17 Time of Evaluation: 12:35 - Subjective Subjective: Nephrology Consultation Note: Assessment: Stable COPD exacerbation, Acute Gastroenteritis Missed HD with hyperkalemia Diabetic chronic Kidney Disease (E11.22) Hypertensive Chronic Kidney Disease (I12.0) End stage renal disease (N18.6) dependence on hemodialysis (Z99.2) (MWF) via AVF Anemia (D64.9), Hyperphosphatemia (E83.39), Secondary Hyperparathyroidism (E21.1 ), HTN (I12.0) Plan: Will plan for HD today as ordered per [facility] schedule. Continue with Nephrovite 1 tab/day. PRBC as needed for anemia. on EDMAR with dialysis as last Hb 9.9 Continue with phos binders, check phos level BP control with meds as ordered. Patient not on RAAS shay as tendency for hyperkalemia. increased hydralazine 100 mg q8 Glycemic control, Dialysis consistent diet Further work up/management as per primary team Dose meds/antibiotics (if needed) for ESRD status. Avoid fleets enema/magnesium based laxatives. Thanks for allowing me to participate in care of your patient. Will follow patient with you. Please call if any Qs. Dr Aurelio Brar Office: [phone] HPI: Pt is a 42 F with hx of ESRD on hemodialysis (MWF) via AVF @ [facility] , last dialysis Sunday, chronic anemia, hyperphosphatemia, secondary hyperparathyroidism, Diabetes Mellitus, hypertension presented with complaints of feeling sick since sunday with pain abdomen, nausea/vomitting and loose stool Renal consult requested for ESRD management. also reports cough ROS: Cardiovascular: No chest pain. Pulmonary: No shortness of breath but has cough and wheeze Gastrointestinal: improved abdominal pain no nausea. no further vomiting and loose stool Genitourinary: No pain while urinating. Denies blood in urine. makes small amount of urine All other negative except as mentioned in HPI Physical Examination: General Appearance: Comfortable, in no acute respiratory distress, co-operative . Vitals reviewed and noted as below Head; Atraumatic, normocephalic ENT: no ulcers no thrush. Tongue is midline. Oropharynx: no rash or ulcers. EYES: Pupils are equal, round and reactive to light accommodation. Eye muscles and extraocular movement intact. Sclera is anicteric. Neck; supple no lymphadenopathy, no thyromegaly or bruit Lungs: Normal respiratory rate/effort. Breath sounds bilateral equal and wheeze Heart: Normal rate. s1s2 normal. No rub or gallop. Extremities: no edema. No varicose veins Neurological: Patient is alert, awake and oriented to person, place and time. No focal deficit. Strength bilateral appropriate and equal Skin: Warm and dry. Normal turgor. No rash. Palpitation: Normal elasticity for age Abdomen: Abdomen is soft. Bowel sounds +. There is mild diffuse abdominal tenderness, no guarding/rigidity or organomegaly Psych: normal insight and normal affect/mood MSK: no joint tenderness or swelling. Digits and nails normal, no deformity : kidney or bladder not palpable Access: AVF Labs/imaging reviewed. Past medical history, past surgical history, family history, social history, allergy reviewed and noted as below Family Hx: no hx of CKD. Non contributory Objective - Vital Signs/Intake and Output Vital Signs (last 24 hours): Temp Pulse Resp BP Pulse Ox 98.0 F 81 18 166/75 H 99 10/19/17 08:04 10/19/17 08:11 10/19/17 08:04 10/19/17 11:14 10/19/17 08:04 Intake and Output: 10/19/17 10/19/17 06:59 18:59 Intake Total 480 Balance 480 - Medications Medications: Current Medications Acetaminophen (Tylenol 325mg Tab) 650 mg PO Q4 PRN PRN Reason: Fever >100.4 F Last Admin: 10/16/17 21:45 Dose: 650 mg Albuterol/Ipratropium (Duoneb 3 Mg/0.5 Mg (3 Ml) Ud) 3 ml INH RQ6 [facility] Last Admin: 10/19/17 07:50 Dose: 3 ml Calcium Acetate (Phoslo) 667 mg PO TIDCC [facility] Last Admin: 10/19/17 08:08 Dose: 667 mg Carvedilol (Coreg) 12.5 mg PO BID [facility] Last Admin: 10/19/17 11:14 Dose: 12.5 mg Clonidine HCl (Catapres) 0.3 mg PO Q8 [facility] Last Admin: 10/19/17 05:27 Dose: 0.3 mg Diphenhydramine HCl (Benadryl) 25 mg PO Q8 PRN PRN Reason: Itching / Pruritus Last Admin: 10/17/17 21:53 Dose: 25 mg Epoetin Cornelius (Procrit) 4,000 unit IV [facility] Last Admin: 10/17/17 11:29 Dose: 4,000 unit Gabapentin (Neurontin) 100 mg PO TID [facility] Last Admin: 10/19/17 11:15 Dose: 100 mg Guaifenesin/Dextromethorphan (Robitussin Dm) 10 ml PO Q4H PRN PRN Reason: Cough and congestion Heparin Sodium (Porcine) (Heparin) 2,000 units IVP F [facility] Last Admin: 10/17/17 11:27 Dose: 2,000 units Heparin Sodium (Porcine) (Heparin) 5,000 units SC Q12 [facility] Last Admin: 10/19/17 11:19 Dose: Not Given Hydralazine HCl (Apresoline) 100 mg PO Q8 [facility] Last Admin: 10/19/17 05:27 Dose: 100 mg Hydromorphone HCl (Dilaudid) 0.5 mg IVP Q4 PRN PRN Reason: Pain, severe (8-10) Last Admin: 10/19/17 08:08 Dose: 0.5 mg Ceftriaxone Sodium 1 gm/ (Sodium Chloride) 100 mls @ 100 mls/hr IVPB DAILY@ 0800 [facility] PRN Reason: Protocol Last Admin: 10/19/17 11:15 Dose: 100 mls/hr Insulin Aspart (Novolog) 0 unit SC [facility] PRN Reason: Protocol Last Admin: 10/19/17 11:21 Dose: Not Given Methylprednisolone (Solu-Medrol) 60 mg IVP Q8 [facility] Last Admin: 10/19/17 05:29 Dose: 60 mg Metoclopramide HCl (Reglan) 5 mg IVP ACHS [facility] Last Admin: 10/19/17 06:58 Dose: 5 mg Nifedipine (Procardia Xl) 90 mg PO DAILY [facility] Last Admin: 10/19/17 11:14 Dose: 90 mg Ondansetron HCl (Zofran Inj) 4 mg IVP Q8 PRN PRN Reason: Nausea/Vomiting Pantoprazole Sodium (Protonix Inj) 40 mg IVP DAILY [facility] Last Admin: 10/19/17 11:24 Dose: Not Given Rosuvastatin Calcium (Crestor) 5 mg PO HS [facility] Last Admin: 10/18/17 22:36 Dose: 5 mg Vitamin B Complex/Vit C/Folic Acid (Nephro-Anjelica) 1 tab PO 0800 [facility] Last Admin: 10/19/17 08:08 Dose: 1 tab - Labs Labs: 10/16/17 08:56 10/16/17 08:56
[2017-10-19 15:07] LABS: BASO % 0.1 % (0.0-2.0); EOS % 0.1 % (0.0-4.0); HEMOGLOBIN 9.5 g/dL (11.0-16.0); LYMPH # 0.9 K/uL (1.0-4.3); MEAN CELL VOLUME 98.2 fL (81.0-99.0); MEAN CORPUSCULAR HEMOGLOBIN 32.8 pg (27.0-31.0); MEAN CORPUSCULAR HGB CONC 33.4 g/dL (33.0-37.0); MEAN PLATELET VOLUME 8.3 fL (7.2-11.7); MONO # 0.7 K/uL (0.0-0.8); MONO % 4.2 % (0.0-10.0); NEUT # 14.2 K/uL (1.8-7.0); NEUT % 89.6 % (50.0-75.0); NRBC % 0.1 % (0.0-2.0); PLATELET COUNT 204 K/uL (130-400); RBC 2.91 Mil/uL (3.80-5.20); RED CELL DISTRIBUTION WIDTH 15.4 % (11.5-14.5); WHITE BLOOD COUNT 15.8 K/uL (4.8-10.8)
[2017-10-19 15:26] LABS: ALB/GLOB RATIO 1.1 (1.0-2.1); ALBUMIN 4.2 g/dL (3.5-5.0); ANISOCYTOSIS SLIGHT; CALCIUM 8.6 mg/dl (8.6-10.4); HYPOCHROMIC SLIGHT; LYMPHOCYTE 5 % (20-40); MONOCYTE 4 % (0-10); NEUTROPHIL 91 % (50-75); PLATELET ESTIMATE NORMAL (NORMAL); POIKILOCYTOSIS SLIGHT; TOTAL CELLS COUNTED 100
[2017-10-19] MEDS: EPOETIN ALFA 4,000 UNIT/ML ML Dialysis IV SCH (15:46)
--- NOTE | 2017-10-19 16:34 | CP.PCM.PN ---
Subjective - Date & Time of Evaluation Date of Evaluation: 10/19/17 Time of Evaluation: 18:00 - Subjective Subjective: pt seen and examined Objective - Vital Signs/Intake and Output Vital Signs (last 24 hours): Temp Pulse Resp BP Pulse Ox 97.7 F 84 18 191/92 H 98 10/19/17 15:30 10/19/17 15:30 10/19/17 15:30 10/19/17 16:15 10/19/17 15:30 Intake and Output: 10/19/17 10/19/17 06:59 18:59 Intake Total 480 Balance 480 - Medications Medications: Current Medications Acetaminophen (Tylenol 325mg Tab) 650 mg PO Q4 PRN PRN Reason: Fever >100.4 F Last Admin: 10/16/17 21:45 Dose: 650 mg Albuterol/Ipratropium (Duoneb 3 Mg/0.5 Mg (3 Ml) Ud) 3 ml INH RQ6 [facility] Last Admin: 10/19/17 14:22 Dose: 3 ml Calcium Acetate (Phoslo) 667 mg PO TIDCC [facility] Last Admin: 10/19/17 12:43 Dose: 667 mg Carvedilol (Coreg) 12.5 mg PO BID [facility] Last Admin: 10/19/17 11:14 Dose: 12.5 mg Clonidine HCl (Catapres) 0.3 mg PO Q8 [facility] Last Admin: 10/19/17 14:25 Dose: Not Given Diphenhydramine HCl (Benadryl) 25 mg PO Q8 PRN PRN Reason: Itching / Pruritus Last Admin: 10/17/17 21:53 Dose: 25 mg Epoetin Cornelius (Procrit) 4,000 unit IV MWF [facility] Last Admin: 10/19/17 15:46 Dose: 4,000 unit Gabapentin (Neurontin) 100 mg PO TID [facility] Last Admin: 10/19/17 14:25 Dose: Not Given Guaifenesin/Dextromethorphan (Robitussin Dm) 10 ml PO Q4H PRN PRN Reason: Cough and congestion Heparin Sodium (Porcine) (Heparin) 2,000 units IVP MWF [facility] Last Admin: 10/19/17 15:46 Dose: 2,000 units Heparin Sodium (Porcine) (Heparin) 5,000 units SC Q12 [facility] Last Admin: 10/19/17 11:19 Dose: Not Given Hydralazine HCl (Apresoline) 100 mg PO Q8 [facility] Last Admin: 10/19/17 14:25 Dose: Not Given Hydromorphone HCl (Dilaudid) 0.5 mg IVP Q4 PRN PRN Reason: Pain, severe (8-10) Last Admin: 10/19/17 12:38 Dose: 0.5 mg Ceftriaxone Sodium 1 gm/ (Sodium Chloride) 100 mls @ 100 mls/hr IVPB DAILY@ 0800 [facility] PRN Reason: Protocol Last Admin: 10/19/17 11:15 Dose: 100 mls/hr Insulin Aspart (Novolog) 0 unit SC ACHS [facility] PRN Reason: Protocol Last Admin: 10/19/17 12:47 Dose: Not Given Methylprednisolone (Solu-Medrol) 60 mg IVP Q8 [facility] Last Admin: 10/19/17 14:26 Dose: Not Given Metoclopramide HCl (Reglan) 5 mg IVP ACHS [facility] Last Admin: 10/19/17 12:43 Dose: 5 mg Nifedipine (Procardia Xl) 90 mg PO DAILY [facility] Last Admin: 10/19/17 11:14 Dose: 90 mg Ondansetron HCl (Zofran Inj) 4 mg IVP Q8 PRN PRN Reason: Nausea/Vomiting Pantoprazole Sodium (Protonix Inj) 40 mg IVP DAILY [facility] Last Admin: 10/19/17 11:24 Dose: Not Given Rosuvastatin Calcium (Crestor) 5 mg PO HS [facility] Last Admin: 10/18/17 22:36 Dose: 5 mg Vitamin B Complex/Vit C/Folic Acid (Nephro-Anjelica) 1 tab PO 0800 [facility] Last Admin: 10/19/17 08:08 Dose: 1 tab - Labs Labs: 10/19/17 15:03 10/19/17 15:03 Assessment and Plan (1) COPD with acute exacerbation Status: Acute (2) Abdominal pain Status: Acute (3) Diabetic foot ulcer Status: Acute (4) Hypertension Status: Chronic (5) Hypertensive CKD, ESRD on dialysis Status: Chronic
[2017-10-20] MEDS: HYDROmorphone 0.5 mg/0.5 ml ISec IVP PRN ×5 (00:07→19:19)
[2017-10-20] MEDS: Albuterol-Ipratrop 3 mg / 0.5 (3 ml) UD INH SCH ×4 (02:33→19:39)
[2017-10-20] MEDS: MethylPREDNISolone 40 mg Vial IVP SCH ×3 (06:22→21:27)
[2017-10-20 07:34] LABS: BASO % 0.2 % (0.0-2.0); EOS % 0.1 % (0.0-4.0); HEMOGLOBIN 9.6 g/dL (11.0-16.0); LYMPH # 1.1 K/uL (1.0-4.3); LYMPH % 7.9 % (20.0-40.0); MEAN CELL VOLUME 99.4 fL (81.0-99.0); MEAN CORPUSCULAR HGB CONC 33.2 g/dL (33.0-37.0); MEAN PLATELET VOLUME 8.6 fL (7.2-11.7); MONO # 0.5 K/uL (0.0-0.8); MONO % 3.8 % (0.0-10.0); NRBC % 0.1 % (0.0-2.0); PLATELET COUNT 197 K/uL (130-400); RBC 2.92 Mil/uL (3.80-5.20); RED CELL DISTRIBUTION WIDTH 15.6 % (11.5-14.5); WHITE BLOOD COUNT 13.7 K/uL (4.8-10.8)
[2017-10-20 08:04] LABS: ALB/GLOB RATIO 1.2 (1.0-2.1); ALBUMIN 4.1 g/dL (3.5-5.0); CALCIUM 8.3 mg/dl (8.6-10.4)
[2017-10-20] MEDS: (Novolog) Insulin Aspart, Recombinant 100 u/ml 10 ml vial SC SCH ×4 (08:11→21:45)
[2017-10-20] MEDS: Multivitamin Vitamin B Complex (Nephro-Vite) Tab PO SCH (08:11)
[2017-10-20] MEDS: guaiFENesin DM 200 mg-20 mg/10 ml UD PO PRN ×2 (08:59→13:56)
[2017-10-20] MEDS: NIFEdipine 90 mg ER Tab PO SCH (09:01)
[2017-10-20] MEDS: Pantoprazole 40 mg EC Tab PO SCH (09:05)
--- NOTE | 2017-10-20 09:13 | CP.PCM.PN ---
Subjective - Date & Time of Evaluation Date of Evaluation: 10/20/17 Time of Evaluation: 09:13 - Subjective Subjective: Nephrology Consultation Note: Assessment: Stable COPD exacerbation Acute Gastroenteritis (resolved) Missed HD with hyperkalemia Diabetic chronic Kidney Disease (E11.22) Hypertensive Chronic Kidney Disease (I12.0) End stage renal disease (N18.6) dependence on hemodialysis (Z99.2) (MWF) via AVF Anemia (D64.9), Hyperphosphatemia (E83.39), Secondary Hyperparathyroidism (E21.1 ), HTN (I12.0) ex smoker Plan: Will plan for HD sunday as ordered per [facility] schedule. Continue with Nephrovite 1 tab/day. PRBC as needed for anemia. on EDMAR with dialysis as last Hb 9.9 Continue with phos binders, check phos level BP control with meds as ordered. Patient not on RAAS shay as tendency for hyperkalemia. increased hydralazine 100 mg q8 Glycemic control, Dialysis consistent diet Further work up/management as per primary team Dose meds/antibiotics for ESRD status. Avoid fleets enema/magnesium based laxatives. pt on steroids and nebs for COPD exac Thanks for allowing me to participate in care of your patient. Will follow patient with you. Please call if any Qs. Dr Aurelio Brar Office: [phone] HPI: Pt is a 42 F with hx of ESRD on hemodialysis (MWF) via AVF @ [facility] , last dialysis Sunday, chronic anemia, hyperphosphatemia, secondary hyperparathyroidism, Diabetes Mellitus, hypertension presented with complaints of feeling sick since sunday with pain abdomen, nausea/vomitting and loose stool Renal consult requested for ESRD management. also reports cough ROS: Cardiovascular: No chest pain. Pulmonary: No shortness of breath but has cough and wheeze Gastrointestinal: improved abdominal pain no nausea. no further vomiting and loose stool Genitourinary: No pain while urinating. Denies blood in urine. makes small amount of urine All other negative except as mentioned in HPI Physical Examination: General Appearance: Comfortable, in no acute respiratory distress, co-operative . Vitals reviewed and noted as below Head; Atraumatic, normocephalic ENT: no ulcers no thrush. Tongue is midline. Oropharynx: no rash or ulcers. EYES: Pupils are equal, round and reactive to light accommodation. Eye muscles and extraocular movement intact. Sclera is anicteric. Neck; supple no lymphadenopathy, no thyromegaly or bruit Lungs: Normal respiratory rate/effort. Breath sounds bilateral equal and wheeze Heart: Normal rate. s1s2 normal. No rub or gallop. Extremities: no edema. No varicose veins Neurological: Patient is alert, awake and oriented to person, place and time. No focal deficit. Strength bilateral appropriate and equal Skin: Warm and dry. Normal turgor. No rash. Palpitation: Normal elasticity for age Abdomen: Abdomen is soft. Bowel sounds +. There is mild diffuse abdominal tenderness, no guarding/rigidity or organomegaly Psych: normal insight and normal affect/mood MSK: no joint tenderness or swelling. Digits and nails normal, no deformity : kidney or bladder not palpable Access: AVF Labs/imaging reviewed. Past medical history, past surgical history, family history, social history, allergy reviewed and noted as below Family Hx: no hx of CKD. Non contributory Objective - Vital Signs/Intake and Output Vital Signs (last 24 hours): Temp Pulse Resp BP Pulse Ox 98.6 F 83 20 174/71 H 97 10/20/17 08:46 10/20/17 08:58 10/20/17 08:46 10/20/17 09:00 10/20/17 08:46 Intake and Output: 10/20/17 10/20/17 06:59 18:59 Intake Total 30 Output Total 0 Balance 30 - Medications Medications: Current Medications Acetaminophen (Tylenol 325mg Tab) 650 mg PO Q4 PRN PRN Reason: Fever >100.4 F Last Admin: 10/16/17 21:45 Dose: 650 mg Albuterol/Ipratropium (Duoneb 3 Mg/0.5 Mg (3 Ml) Ud) 3 ml INH RQ6 [facility] Last Admin: 10/20/17 02:33 Dose: Not Given Calcium Acetate (Phoslo) 667 mg PO TIDCC [facility] Last Admin: 10/20/17 08:11 Dose: 667 mg Carvedilol (Coreg) 12.5 mg PO BID [facility] Last Admin: 10/20/17 09:00 Dose: 12.5 mg Clonidine HCl (Catapres) 0.3 mg PO Q8 [facility] Last Admin: 10/20/17 06:22 Dose: 0.3 mg Diphenhydramine HCl (Benadryl) 25 mg PO Q8 PRN PRN Reason: Itching / Pruritus Last Admin: 10/17/17 21:53 Dose: 25 mg Epoetin Cornelius (Procrit) 4,000 unit IV MWF [facility] Last Admin: 10/19/17 15:46 Dose: 4,000 unit Gabapentin (Neurontin) 100 mg PO TID [facility] Last Admin: 10/20/17 09:00 Dose: 100 mg Guaifenesin/Dextromethorphan (Robitussin Dm) 10 ml PO Q4H PRN PRN Reason: Cough and congestion Last Admin: 10/20/17 08:59 Dose: 10 ml Heparin Sodium (Porcine) (Heparin) 2,000 units IVP [facility] Last Admin: 10/19/17 15:46 Dose: 2,000 units Heparin Sodium (Porcine) (Heparin) 5,000 units SC Q12 [facility] Last Admin: 10/20/17 09:05 Dose: 5,000 units Hydralazine HCl (Apresoline) 100 mg PO Q8 [facility] Last Admin: 10/20/17 06:22 Dose: 100 mg Hydromorphone HCl (Dilaudid) 0.5 mg IVP Q4 PRN PRN Reason: Pain, severe (8-10) Last Admin: 10/20/17 08:59 Dose: 0.5 mg Ceftriaxone Sodium 1 gm/ (Sodium Chloride) 100 mls @ 100 mls/hr IVPB DAILY@ 0800 [facility] PRN Reason: Protocol Last Admin: 10/20/17 08:11 Dose: 100 mls/hr Insulin Aspart (Novolog) 0 unit SC [facility] PRN Reason: Protocol Last Admin: 10/20/17 08:11 Dose: 6 unit Methylprednisolone (Solu-Medrol) 40 mg IVP Q12 [facility] Metoclopramide HCl (Reglan) 5 mg IVP ACHS [facility] Last Admin: 10/20/17 06:36 Dose: Not Given Nifedipine (Procardia Xl) 90 mg PO DAILY [facility] Last Admin: 10/20/17 09:01 Dose: 90 mg Ondansetron HCl (Zofran Inj) 4 mg IVP Q8 PRN PRN Reason: Nausea/Vomiting Pantoprazole Sodium (Protonix Ec Tab) 40 mg PO DAILY [facility] Last Admin: 10/20/17 09:05 Dose: 40 mg Rosuvastatin Calcium (Crestor) 5 mg PO HS [facility] Last Admin: 10/19/17 21:47 Dose: 5 mg Vitamin B Complex/Vit C/Folic Acid (Nephro-Anjelica) 1 tab PO 0800 [facility] Last Admin: 10/20/17 08:11 Dose: 1 tab - Labs Labs: 10/20/17 07:21 10/20/17 07:21
[2017-10-20 10:43] LABS: LYMPHOCYTE 4 % (20-40); MONOCYTE 1 % (0-10); NEUTROPHIL 95 % (50-75); PLATELET ESTIMATE NORMAL (NORMAL); TOTAL CELLS COUNTED 100
[2017-10-20 10:52] LABS: ANISOCYTOSIS SLIGHT; HYPOCHROMIC SLIGHT; POLYCHROMIC SLIGHT
[2017-10-20 10:53] LABS: TOXIC GRANULATION PRESENT
--- NOTE | 2017-10-21 00:29 | CP.PCM.PN ---
Subjective - Date & Time of Evaluation Date of Evaluation: 10/20/17 Time of Evaluation: 19:00 - Subjective Subjective: Patient SEEN AND EXAMINED AT BEDSIDE Objective - Vital Signs/Intake and Output Vital Signs (last 24 hours): Temp Pulse Resp BP Pulse Ox 98.3 F 78 20 169/72 H 99 10/20/17 16:35 10/20/17 16:35 10/20/17 16:35 10/20/17 17:03 10/20/17 16:35 Intake and Output: 10/20/17 10/21/17 18:59 06:59 Intake Total 500 Balance 500 - Medications Medications: Current Medications Acetaminophen (Tylenol 325mg Tab) 650 mg PO Q4 PRN PRN Reason: Fever >100.4 F Last Admin: 10/16/17 21:45 Dose: 650 mg Albuterol/Ipratropium (Duoneb 3 Mg/0.5 Mg (3 Ml) Ud) 3 ml INH RQ6 [facility] Last Admin: 10/20/17 19:39 Dose: 3 ml Calcium Acetate (Phoslo) 667 mg PO TIDCC [facility] Last Admin: 10/20/17 16:55 Dose: 667 mg Carvedilol (Coreg) 12.5 mg PO BID [facility] Last Admin: 10/20/17 17:03 Dose: 12.5 mg Clonidine HCl (Catapres) 0.3 mg PO Q8 [facility] Last Admin: 10/20/17 21:26 Dose: 0.3 mg Diphenhydramine HCl (Benadryl) 25 mg PO Q8 PRN PRN Reason: Itching / Pruritus Last Admin: 10/17/17 21:53 Dose: 25 mg Epoetin Cornelius (Procrit) 4,000 unit IV [facility] Last Admin: 10/19/17 15:46 Dose: 4,000 unit Gabapentin (Neurontin) 100 mg PO TID [facility] Last Admin: 10/20/17 17:02 Dose: 100 mg Guaifenesin/Dextromethorphan (Robitussin Dm) 10 ml PO Q4H PRN PRN Reason: Cough and congestion Last Admin: 10/20/17 13:56 Dose: 10 ml Heparin Sodium (Porcine) (Heparin) 2,000 units IVP [facility] Last Admin: 10/19/17 15:46 Dose: 2,000 units Hydralazine HCl (Apresoline) 100 mg PO Q8 [facility] Last Admin: 10/20/17 21:25 Dose: 100 mg Hydromorphone HCl (Dilaudid) 0.5 mg IVP Q4 PRN PRN Reason: Pain, severe (8-10) Last Admin: 10/20/17 19:19 Dose: 0.5 mg Ceftriaxone Sodium 1 gm/ (Sodium Chloride) 100 mls @ 100 mls/hr IVPB DAILY@ 0800 [facility] PRN Reason: Protocol Last Admin: 10/20/17 08:11 Dose: 100 mls/hr Insulin Aspart (Novolog) 0 unit SC ACHS [facility] PRN Reason: Protocol Last Admin: 10/20/17 21:45 Dose: Not Given Methylprednisolone (Solu-Medrol) 40 mg IVP Q12 [facility] Last Admin: 10/20/17 21:27 Dose: 40 mg Metoclopramide HCl (Reglan) 5 mg IVP ACHS [facility] Last Admin: 10/20/17 21:26 Dose: 5 mg Nifedipine (Procardia Xl) 90 mg PO DAILY [facility] Last Admin: 10/20/17 09:01 Dose: 90 mg Ondansetron HCl (Zofran Inj) 4 mg IVP Q8 PRN PRN Reason: Nausea/Vomiting Pantoprazole Sodium (Protonix Ec Tab) 40 mg PO DAILY [facility] Last Admin: 10/20/17 09:05 Dose: 40 mg Rosuvastatin Calcium (Crestor) 5 mg PO HS [facility] Last Admin: 10/20/17 21:26 Dose: 5 mg Vitamin B Complex/Vit C/Folic Acid (Nephro-Anjelica) 1 tab PO 0800 [facility] Last Admin: 10/20/17 08:11 Dose: 1 tab - Labs Labs: 10/20/17 07:21 10/20/17 07:21 Assessment and Plan (1) COPD with acute exacerbation Status: Acute (2) Abdominal pain Status: Acute (3) Diabetic foot ulcer Status: Acute (4) Hypertension Status: Chronic (5) Hypertensive CKD, ESRD on dialysis Status: Chronic
[2017-10-21] MEDS: HYDROmorphone 0.5 mg/0.5 ml ISec IVP PRN ×4 (01:08→17:42)
[2017-10-21] MEDS: Albuterol-Ipratrop 3 mg / 0.5 (3 ml) UD INH SCH ×5 (01:13→19:58)
[2017-10-21 07:35] LABS: HEMOGLOBIN 9.8 g/dL (11.0-16.0); LYMPH # 1.1 K/uL (1.0-4.3); LYMPH % 5.7 % (20.0-40.0); MEAN CELL VOLUME 98.6 fL (81.0-99.0); MEAN CORPUSCULAR HEMOGLOBIN 33.5 pg (27.0-31.0); MEAN PLATELET VOLUME 8.6 fL (7.2-11.7); MONO # 0.8 K/uL (0.0-0.8); MONO % 4.1 % (0.0-10.0); NEUT # 17.1 K/uL (1.8-7.0); NEUT % 90.2 % (50.0-75.0); NRBC % 0.1 % (0.0-2.0); PLATELET COUNT 215 K/uL (130-400); RBC 2.93 Mil/uL (3.80-5.20); RED CELL DISTRIBUTION WIDTH 15.4 % (11.5-14.5)
[2017-10-21] MEDS: (Novolog) Insulin Aspart, Recombinant 100 u/ml 10 ml vial SC SCH ×4 (07:51→22:13)
[2017-10-21] MEDS: Multivitamin Vitamin B Complex (Nephro-Vite) Tab PO SCH (07:52)
[2017-10-21] MEDS: guaiFENesin DM 200 mg-20 mg/10 ml UD PO PRN ×2 (07:59→12:11)
[2017-10-21 08:21] LABS: ALB/GLOB RATIO 1.2 (1.0-2.1); CALCIUM 8.4 mg/dl (8.6-10.4)
[2017-10-21] MEDS ORDERED: Sod Polystyrene Sulf 15 gm/60 ml Susp PO ONE (09:05)
[2017-10-21 09:18] LABS: ANISOCYTOSIS SLIGHT; HYPOCHROMIC SLIGHT; LYMPHOCYTE 5 % (20-40); MONOCYTE 2 % (0-10); NEUTROPHIL 93 % (50-75); PLATELET ESTIMATE NORMAL (NORMAL); POLYCHROMIC SLIGHT; TOTAL CELLS COUNTED 100; TOXIC GRANULATION PRESENT
[2017-10-21 09:19] LABS: LARGE PLATELETS PRESENT
[2017-10-21] MEDS: NIFEdipine 90 mg ER Tab PO SCH (09:29)
[2017-10-21] MEDS: Pantoprazole 40 mg EC Tab PO SCH (09:29)
[2017-10-21] MEDS: MethylPREDNISolone 40 mg Vial IVP SCH ×2 (09:30→22:07)
--- NOTE | 2017-10-21 14:28 | CP.PCM.PN ---
Subjective - Date & Time of Evaluation Date of Evaluation: 10/21/17 Time of Evaluation: 14:27 - Subjective Subjective: Nephrology Consultation Note: Assessment: Stable COPD exacerbation Acute Gastroenteritis (resolved) Missed HD with hyperkalemia Diabetic chronic Kidney Disease (E11.22) Hypertensive Chronic Kidney Disease (I12.0) End stage renal disease (N18.6) dependence on hemodialysis (Z99.2) (MWF) via AVF Anemia (D64.9), Hyperphosphatemia (E83.39), Secondary Hyperparathyroidism (E21.1 ), HTN (I12.0) ex smoker Plan: Will plan for HD sunday as ordered per [facility] schedule. Continue with Nephrovite 1 tab/day. medical management of hyperkalemia today. low K diet d/w pt PRBC as needed for anemia. on EDMAR with dialysis as last Hb 9.9 Continue with phos binders, check phos level BP control with meds as ordered. Patient not on RAAS shay as tendency for hyperkalemia. increased hydralazine 100 mg q8 Glycemic control, Dialysis consistent diet Further work up/management as per primary team Dose meds/antibiotics for ESRD status. Avoid fleets enema/magnesium based laxatives. pt on steroids and nebs for COPD exac Thanks for allowing me to participate in care of your patient. Will follow patient with you. Please call if any Qs. Dr Aurelio Brar Office: [phone] HPI: Pt is a 42 F with hx of ESRD on hemodialysis (MWF) via AVF @ [facility] , last dialysis Sunday, chronic anemia, hyperphosphatemia, secondary hyperparathyroidism, Diabetes Mellitus, hypertension presented with complaints of feeling sick since sunday with pain abdomen, nausea/vomitting and loose stool Renal consult requested for ESRD management. also reports cough ROS: Cardiovascular: No chest pain. Pulmonary: No shortness of breath but has cough and wheeze Gastrointestinal: improved abdominal pain no nausea. no further vomiting and loose stool Genitourinary: No pain while urinating. Denies blood in urine. makes small amount of urine All other negative except as mentioned in HPI Physical Examination: General Appearance: Comfortable, in no acute respiratory distress, co-operative . Vitals reviewed and noted as below Head; Atraumatic, normocephalic ENT: no ulcers no thrush. Tongue is midline. Oropharynx: no rash or ulcers. EYES: Pupils are equal, round and reactive to light accommodation. Eye muscles and extraocular movement intact. Sclera is anicteric. Neck; supple no lymphadenopathy, no thyromegaly or bruit Lungs: Normal respiratory rate/effort. Breath sounds bilateral equal and wheeze Heart: Normal rate. s1s2 normal. No rub or gallop. Extremities: no edema. No varicose veins Neurological: Patient is alert, awake and oriented to person, place and time. No focal deficit. Strength bilateral appropriate and equal Skin: Warm and dry. Normal turgor. No rash. Palpitation: Normal elasticity for age Abdomen: Abdomen is soft. Bowel sounds +. There is mild diffuse abdominal tenderness, no guarding/rigidity or organomegaly Psych: normal insight and normal affect/mood MSK: no joint tenderness or swelling. Digits and nails normal, no deformity : kidney or bladder not palpable Access: AVF Labs/imaging reviewed. Past medical history, past surgical history, family history, social history, allergy reviewed and noted as below Family Hx: no hx of CKD. Non contributory Objective - Vital Signs/Intake and Output Vital Signs (last 24 hours): Temp Pulse Resp BP Pulse Ox 98.9 F 83 20 164/74 H 99 10/21/17 07:32 10/21/17 14:23 10/21/17 07:32 10/21/17 14:23 10/21/17 07:32 - Medications Medications: Current Medications Acetaminophen (Tylenol 325mg Tab) 650 mg PO Q4 PRN PRN Reason: Fever >100.4 F Last Admin: 10/16/17 21:45 Dose: 650 mg Albuterol/Ipratropium (Duoneb 3 Mg/0.5 Mg (3 Ml) Ud) 3 ml INH RQ6 [facility] Last Admin: 10/21/17 14:08 Dose: Not Given Calcium Acetate (Phoslo) 667 mg PO TIDCC [facility] Last Admin: 10/21/17 12:11 Dose: 667 mg Carvedilol (Coreg) 12.5 mg PO BID [facility] Last Admin: 10/21/17 09:29 Dose: 12.5 mg Clonidine HCl (Catapres) 0.3 mg PO Q8 [facility] Last Admin: 10/21/17 14:24 Dose: 0.3 mg Diphenhydramine HCl (Benadryl) 25 mg PO Q8 PRN PRN Reason: Itching / Pruritus Last Admin: 10/17/17 21:53 Dose: 25 mg Epoetin Cornelius (Procrit) 4,000 unit IV MWF [facility] Last Admin: 10/19/17 15:46 Dose: 4,000 unit Gabapentin (Neurontin) 100 mg PO TID [facility] Last Admin: 10/21/17 14:24 Dose: 100 mg Guaifenesin/Dextromethorphan (Robitussin Dm) 10 ml PO Q4H PRN PRN Reason: Cough and congestion Last Admin: 10/21/17 12:11 Dose: 10 ml Heparin Sodium (Porcine) (Heparin) 2,[address] [facility] [place] [facility] Last Admin: 10/19/17 15:46 Dose: 2,000 units Hydralazine HCl (Apresoline) 100 mg PO Q8 [facility] Last Admin: 10/21/17 14:24 Dose: 100 mg Hydromorphone HCl (Dilaudid) 0.5 mg IVP Q4 PRN PRN Reason: Pain, severe (8-10) Last Admin: 10/21/17 12:11 Dose: 0.5 mg Ceftriaxone Sodium 1 gm/ (Sodium Chloride) 100 mls @ 100 mls/hr IVPB DAILY@ 0800 [facility] PRN Reason: Protocol Last Admin: 10/21/17 07:04 Dose: 100 mls/hr Insulin Aspart (Novolog) 0 unit SC ACHS [facility] PRN Reason: Protocol Last Admin: 10/21/17 12:11 Dose: 4 unit Methylprednisolone (Solu-Medrol) 40 mg IVP Q12 [facility] Last Admin: 10/21/17 09:30 Dose: 40 mg Metoclopramide HCl (Reglan) 5 mg IVP ACHS [facility] Last Admin: 10/21/17 12:11 Dose: 5 mg Nifedipine (Procardia Xl) 120 mg PO DAILY [facility] Ondansetron HCl (Zofran Inj) 4 mg IVP Q8 PRN PRN Reason: Nausea/Vomiting Pantoprazole Sodium (Protonix Ec Tab) 40 mg PO DAILY [facility] Last Admin: 10/21/17 09:29 Dose: 40 mg Rosuvastatin Calcium (Crestor) 5 mg PO HS [facility] Last Admin: 10/20/17 21:26 Dose: 5 mg Vitamin B Complex/Vit C/Folic Acid (Nephro-Anjelica) 1 tab PO 0800 [facility] Last Admin: 10/21/17 07:52 Dose: 1 tab - Labs Labs: 10/21/17 07:23 10/21/17 07:23
[2017-10-21] MEDS ORDERED: HYDROmorphone 0.5 mg/0.5 ml ISec IVP ONE (22:45)
[2017-10-22] MEDS: Albuterol-Ipratrop 3 mg / 0.5 (3 ml) UD INH SCH ×4 (01:50→19:20)
[2017-10-22] MEDS: HYDROmorphone 0.5 mg/0.5 ml ISec IVP PRN ×3 (05:29→19:57)
[2017-10-22] MEDS: (Novolog) Insulin Aspart, Recombinant 100 u/ml 10 ml vial SC SCH ×4 (08:09→22:29)
[2017-10-22] MEDS: Multivitamin Vitamin B Complex (Nephro-Vite) Tab PO SCH (08:10)
[2017-10-22 10:16] LABS: BASO # 0.1 K/uL (0.0-0.2); BASO % 0.4 % (0.0-2.0); EOS % 0.1 % (0.0-4.0); HEMOGLOBIN 9.5 g/dL (11.0-16.0); LYMPH # 1.2 K/uL (1.0-4.3); LYMPH % 6.6 % (20.0-40.0); MEAN CELL VOLUME 99.2 fL (81.0-99.0); MEAN CORPUSCULAR HGB CONC 33.3 g/dL (33.0-37.0); MEAN PLATELET VOLUME 8.9 fL (7.2-11.7); MONO # 0.7 K/uL (0.0-0.8); NEUT # 16.3 K/uL (1.8-7.0); NEUT % 88.9 % (50.0-75.0); NRBC % 0.1 % (0.0-2.0); PLATELET COUNT 211 K/uL (130-400); RBC 2.87 Mil/uL (3.80-5.20); RED CELL DISTRIBUTION WIDTH 15.6 % (11.5-14.5); WHITE BLOOD COUNT 18.4 K/uL (4.8-10.8)
[2017-10-22] MEDS: EPOETIN ALFA 4,000 UNIT/ML ML Dialysis IV SCH (10:35)
[2017-10-22 10:36] LABS: TOTAL CELLS COUNTED 100
[2017-10-22 10:37] LABS: HYPOCHROMIC SLIGHT; LYMPHOCYTE 6 % (20-40); MONOCYTE 3 % (0-10); NEUTROPHIL 91 % (50-75); PLATELET ESTIMATE NORMAL (NORMAL)
[2017-10-22 10:40] LABS: ALB/GLOB RATIO 1.3 (1.0-2.1); ALBUMIN 4.1 g/dL (3.5-5.0); CALCIUM 8.4 mg/dl (8.6-10.4)
[2017-10-22] MEDS: MethylPREDNISolone 40 mg Vial IVP SCH (11:00)
--- NOTE | 2017-10-22 13:15 | CP.PCM.PN ---
Subjective - Date & Time of Evaluation Date of Evaluation: 10/22/17 Time of Evaluation: 13:14 - Subjective Subjective: Nephrology Consultation Note: Assessment: Stable COPD exacerbation Acute Gastroenteritis (resolved) Missed HD with hyperkalemia Diabetic chronic Kidney Disease (E11.22) Hypertensive Chronic Kidney Disease (I12.0) End stage renal disease (N18.6) dependence on hemodialysis (Z99.2) (MWF) via AVF Anemia (D64.9), Hyperphosphatemia (E83.39), Secondary Hyperparathyroidism (E21.1 ), HTN (I12.0) ex smoker Plan: Will plan for HD sunday as ordered per [facility] schedule. Continue with Nephrovite 1 tab/day. low K diet d/w pt PRBC as needed for anemia. on EDMAR with dialysis as last Hb 9.5 Continue with phos binders, check phos level BP control with meds as ordered. Patient not on RAAS shay as tendency for hyperkalemia. Increased hydralazine 100 mg q8, nifedipine 120 mg/day. likely trigger for elevated BP is COPD ex/steroids Glycemic control, Dialysis consistent diet Further work up/management as per primary team Dose meds/antibiotics for ESRD status. Avoid fleets enema/magnesium based laxatives. pt on steroids and nebs for COPD exac Thanks for allowing me to participate in care of your patient. Will follow patient with you. Please call if any Qs. d/w team Dr Aurelio Brar Office: [phone] HPI: Pt is a 42 F with hx of ESRD on hemodialysis (MWF) via AVF @ [facility] , last dialysis Sunday, chronic anemia, hyperphosphatemia, secondary hyperparathyroidism, Diabetes Mellitus, hypertension presented with complaints of feeling sick since sunday with pain abdomen, nausea/vomitting and loose stool Renal consult requested for ESRD management. also reports cough ROS: Cardiovascular: No chest pain. Pulmonary: c/o shortness of breath with cough and wheeze Gastrointestinal: improved abdominal pain no nausea. no further vomiting and loose stool Genitourinary: No pain while urinating. Denies blood in urine. makes small amount of urine All other negative except as mentioned in HPI Physical Examination: seen on HD General Appearance: uncomfortable, in no acute respiratory distress, co- operative . Vitals reviewed and noted as below Head; Atraumatic, normocephalic ENT: no ulcers no thrush. Tongue is midline. Oropharynx: no rash or ulcers. EYES: Pupils are equal, round and reactive to light accommodation. Eye muscles and extraocular movement intact. Sclera is anicteric. Neck; supple no lymphadenopathy, no thyromegaly or bruit Lungs: Normal respiratory rate/effort. Breath sounds bilateral equal and wheeze Heart: Normal rate. s1s2 normal. No rub or gallop. Extremities: no edema. No varicose veins Neurological: Patient is alert, awake and oriented to person, place and time. No focal deficit. Strength bilateral appropriate and equal Skin: Warm and dry. Normal turgor. No rash. Palpitation: Normal elasticity for age Abdomen: Abdomen is soft. Bowel sounds +. There is mild diffuse abdominal tenderness, no guarding/rigidity or organomegaly Psych: normal insight and normal affect/mood MSK: no joint tenderness or swelling. Digits and nails normal, no deformity : kidney or bladder not palpable Access: AVF Labs/imaging reviewed. Past medical history, past surgical history, family history, social history, allergy reviewed and noted as below Family Hx: no hx of CKD. Non contributory Objective - Vital Signs/Intake and Output Vital Signs (last 24 hours): Temp Pulse Resp BP Pulse Ox 97.7 F 88 20 163/79 H 98 10/22/17 10:00 10/22/17 10:00 10/22/17 10:00 10/22/17 12:00 10/22/17 10:00 - Medications Medications: Current Medications Acetaminophen (Tylenol 325mg Tab) 650 mg PO Q4 PRN PRN Reason: Fever >100.4 F Last Admin: 10/16/17 21:45 Dose: 650 mg Albuterol/Ipratropium (Duoneb 3 Mg/0.5 Mg (3 Ml) Ud) 3 ml INH RQ6 [facility] Last Admin: 10/22/17 13:05 Dose: Not Given Calcium Acetate (Phoslo) 667 mg PO TIDCC [facility] Last Admin: 10/22/17 12:29 Dose: Not Given Carvedilol (Coreg) 12.5 mg PO BID [facility] Last Admin: 10/22/17 11:00 Dose: Not Given Clonidine HCl (Catapres) 0.3 mg PO Q8 [facility] Last Admin: 10/22/17 05:13 Dose: 0.3 mg Diphenhydramine HCl (Benadryl) 25 mg PO Q8 PRN PRN Reason: Itching / Pruritus Last Admin: 10/17/17 21:53 Dose: 25 mg Epoetin Cornelius (Procrit) 4,000 unit IV MWF [facility] Last Admin: 10/22/17 10:35 Dose: 4,000 unit Gabapentin (Neurontin) 100 mg PO TID [facility] Last Admin: 10/22/17 11:00 Dose: Not Given Guaifenesin/Dextromethorphan (Robitussin Dm) 10 ml PO Q4H PRN PRN Reason: Cough and congestion Last Admin: 10/21/17 12:11 Dose: 10 ml Heparin Sodium (Porcine) (Heparin) 2,000 units IVP [facility] [place] Last Admin: 10/22/17 11:03 Dose: 2,000 units Hydralazine HCl (Apresoline) 100 mg PO Q8 [facility] Last Admin: 10/22/17 05:13 Dose: 100 mg Hydromorphone HCl (Dilaudid) 0.5 mg IVP Q4H PRN PRN Reason: pain Last Admin: 10/22/17 05:29 Dose: 0.5 mg Insulin Aspart (Novolog) 0 unit SC [facility] PRN Reason: Protocol Last Admin: 10/22/17 12:29 Dose: Not Given Methylprednisolone (Solu-Medrol) 40 mg IVP Q12 [facility] Last Admin: 10/21/17 22:07 Dose: 40 mg Metoclopramide HCl (Reglan) 5 mg IVP [facility] Last Admin: 10/22/17 12:30 Dose: Not Given Nifedipine (Procardia Xl) 120 mg PO DAILY [facility] Ondansetron HCl (Zofran Inj) 4 mg IVP Q8 PRN PRN Reason: Nausea/Vomiting Pantoprazole Sodium (Protonix Ec Tab) 40 mg PO DAILY [facility] Last Admin: 10/21/17 09:29 Dose: 40 mg Rosuvastatin Calcium (Crestor) 5 mg PO HS [facility] Last Admin: 10/21/17 22:06 Dose: 5 mg Fluticasone/Salmeterol (Advair Diskus 250/50) 1 puff INH RQ12 [facility] Vitamin B Complex/Vit C/Folic Acid (Nephro-Anjelica) 1 tab PO 0800 [facility] Last Admin: 10/22/17 08:10 Dose: 1 tab - Labs Labs: 10/22/17 10:06 10/22/17 10:06
[2017-10-22] MEDS: NIFEdipine 60 mg ER Tab PO SCH (14:49)
[2017-10-22] MEDS: Pantoprazole 40 mg EC Tab PO SCH (14:49)
[2017-10-22] MEDS: guaiFENesin DM 200 mg-20 mg/10 ml UD PO PRN (14:51)
--- NOTE | 2017-10-22 16:23 | PN ---
DATE: 10/21/2017 SUBJECTIVE: The patient seen and examined at bedside, looking comfortable. No nausea, vomiting, or diarrhea. The patient was seen on 10/21/2017, coming back to see Dr. Gamez. The patient looks comfortable. No nausea, vomiting, or diarrhea. No hematuria or hematochezia. No swelling of legs. No chest pain, no palpitation, no headache, no dizziness. PHYSICAL EXAMINATION: VITAL SIGNS: Temperature 98.9, pulse 83, respiratory rate 20, blood pressure 150/70, pulse oximetry 99%. HEENT: Normocephalic, atraumatic. Eyes, PERRLA. Extraocular muscles intact. Conjunctivae clear. Nose patent. Mucous membranes moist. NECK: Supple. No carotid bruit, JVD, or thyromegaly. CHEST: Bilaterally symmetrical. HEART: S1, S2. positive. LUNGS: Clear to auscultation. ABDOMEN: Soft. Bowel sounds present. No organomegaly. EXTREMITIES: No edema, no cyanosis. NEUROLOGIC: The patient is awake, alert. Moving all 4 extremities. No focal deficit. MEDICATIONS: Tylenol, calcium, carvedilol, clonidine, Benadryl, Procrit, Neurontin, heparin, Dilaudid. LABORATORY: White blood cells 19.0, hemoglobin 9.8, hematocrit 28.9, platelets 215. Sodium 132, potassium 6.2. BUN 72, creatinine 7.6, glucose 353. ASSESSMENT AND PLAN: The patient is around 42 years old female with leukocytosis, anemia, hyperglycemia, hyperkalemia, renal insufficiency. She has a chronic obstructive pulmonary disease exacerbation, acute gastroenteritis, resolved. Missed dialysis. That is why has hyperkalemia, diabetic, chronic kidney disease, hypertensive chronic kidney disease, end-stage renal disease, dependency, on hemodialysis on Sunday, Sunday, and Sunday via arteriovenous fistula, anemia, hyperphosphatemia secondary to hyperparathyroidism, hypertension. History of smoking, urge to quit smoking. Continue dialysis. The patient educated on the importance of dialysis. We will make her not to miss dialysis. She understands. We will continue present treatment with labs. We will follow. Kacey Cheney MD
[2017-10-22] MEDS ORDERED: Albuterol-Ipratrop 3 mg / 0.5 (3 ml) UD INH STA (17:22)
--- NOTE | 2017-10-22 18:23 | CP.PCM.CON ---
History of Present Illness - History of Present Illness History of Present Illness: Reason for consultation: shortness of breath and cough 42-year-old female with end-stage renal disease on hemodialysis, diabetes, peripheral vascular disease presented to emergency room with one week history off dry cough shortness of breath associated with chest pain, vomiting and diarrhea. Status post hemodialysis today. Patient states cough is mostly dry and associated with wheezing and shortness of breath. Patient has history of smoking and quit one year ago. Review of Systems - Review of Systems All systems: reviewed and no additional remarkable complaints except (shortness of breath and cough) Past Patient History - Infectious Disease Hx of Infectious Diseases: None - Past Medical History & Family History Past Medical History?: Yes - Past Social History Smoking Status: Former Smoker - CARDIAC Hx Hypercholesterolemia: Yes Hx Hypertension: Yes - PULMONARY Hx Respiratory Disorders: Yes Hx Pneumonia: Yes - NEUROLOGICAL Hx Neurological Disorder: No - HEENT Hx HEENT Problems: Yes Hx Cataracts: Yes (09/23/14 left) - RENAL Hx Chronic Kidney Disease: Yes Hx Dialysis: Yes Date of Last Dialysis Treatment: 10/16/17 - ENDOCRINE/METABOLIC Hx Endocrine Disorders: Yes Hx Diabetes Mellitus Type 2: Yes - HEMATOLOGICAL/ONCOLOGICAL Hx Blood Disorders: Yes Hx Anemia: Yes - INTEGUMENTARY Hx Dermatological Problems: Yes Other/Comment: right great toe amputation 2009 - MUSCULOSKELETAL/RHEUMATOLOGICAL Hx Musculoskeletal Disorders: Yes Hx Falls: Yes - GASTROINTESTINAL Hx Gastrointestinal Disorders: Yes Hx Gastritis: Yes (diabetic gastroparesis) - GENITOURINARY/GYNECOLOGICAL Hx Genitourinary Disorders: Yes Other/Comment: renal failure - PSYCHIATRIC Hx Psychophysiologic Disorder: Yes Hx Depression: Yes Hx Substance Use: No - SURGICAL HISTORY Hx Surgeries: Yes Hx Cholecystectomy: Yes (2010) - ANESTHESIA Hx Anesthesia: Yes Hx Anesthesia Reactions: No Hx Malignant Hyperthermia: No Meds Allergies/Adverse Reactions: Allergies Allergy/AdvReac Type Severity Reaction Status Date / Time ketorolac tromethamine Allergy Verified 10/16/17 06:55 [From Toradol] morphine Allergy Verified 10/16/17 06:55 tramadol Allergy RASH Verified 10/16/17 06:55 - Medications Medications: Current Medications Acetaminophen (Tylenol 325mg Tab) 650 mg PO Q4 PRN PRN Reason: Fever >100.4 F Last Admin: 10/16/17 21:45 Dose: 650 mg Albuterol/Ipratropium (Duoneb 3 Mg/0.5 Mg (3 Ml) Ud) 3 ml INH RQ6 [facility] Last Admin: 10/22/17 13:05 Dose: Not Given Calcium Acetate (Phoslo) 667 mg PO TIDCC [facility] Last Admin: 10/22/17 17:22 Dose: 667 mg Carvedilol (Coreg) 12.5 mg PO BID [facility] Last Admin: 10/22/17 18:12 Dose: 12.5 mg Clonidine HCl (Catapres) 0.3 mg PO Q8 [facility] Last Admin: 10/22/17 14:49 Dose: 0.3 mg Diphenhydramine HCl (Benadryl) 25 mg PO Q8 PRN PRN Reason: Itching / Pruritus Last Admin: 10/17/17 21:53 Dose: 25 mg Epoetin Cornelius ([facility]) [facility] Last Admin: 10/22/17 10:35 Dose: 4,000 unit Gabapentin (Neurontin) 100 mg PO TID [facility] Last Admin: 10/22/17 17:22 Dose: 100 mg Guaifenesin/Dextromethorphan (Robitussin Dm) 10 ml PO Q4H PRN PRN Reason: Cough and congestion Last Admin: 10/22/17 14:51 Dose: 10 ml Heparin Sodium (Porcine) (Heparin) 2,000 units IVP [facility] Last Admin: 10/22/17 11:03 Dose: 2,000 units Hydralazine HCl (Apresoline) 100 mg PO Q8 [facility] Last Admin: 10/22/17 14:49 Dose: 100 mg Hydromorphone HCl (Dilaudid) 0.5 mg IVP Q4H PRN PRN Reason: pain Last Admin: 10/22/17 15:02 Dose: 0.5 mg Ceftriaxone Sodium 1 gm/ (Sodium Chloride) 100 mls @ 200 mls/hr IVPB DAILY [facility] PRN Reason: Protocol Insulin Aspart (Novolog) 0 unit SC [facility] PRN Reason: Protocol Last Admin: 10/22/17 17:22 Dose: 2 unit Methylprednisolone (Solu-Medrol) 60 mg IVP Q8H [facility] Metoclopramide HCl (Reglan) 5 mg IVP [facility] Last Admin: 10/22/17 17:22 Dose: 5 mg Nifedipine (Procardia Xl) 120 mg PO DAILY [facility] Last Admin: 10/22/17 14:49 Dose: 120 mg Ondansetron HCl (Zofran Inj) 4 mg IVP Q8 PRN PRN Reason: Nausea/Vomiting Pantoprazole Sodium (Protonix Ec Tab) 40 mg PO DAILY [facility] Last Admin: 10/22/17 14:49 Dose: 40 mg Rosuvastatin Calcium (Crestor) 5 mg PO HS [facility] Last Admin: 10/21/17 22:06 Dose: 5 mg Fluticasone/Salmeterol (Advair Diskus 250/50) 1 puff INH RQ12 [facility] Vitamin B Complex/Vit C/Folic Acid (Nephro-Anjelica) 1 tab PO 0800 [facility] Last Admin: 10/22/17 08:10 Dose: 1 tab Physical Exam - Head Exam Head Exam: ATRAUMATIC, NORMOCEPHALIC - Eye Exam Eye Exam: Normal appearance - ENT Exam ENT Exam: Mucous Membranes Moist - Neck Exam Neck exam: Positive for: Normal Inspection - Respiratory Exam Respiratory Exam: Wheezes - Cardiovascular Exam Cardiovascular Exam: REGULAR RHYTHM - GI/Abdominal Exam GI & Abdominal Exam: Normal Bowel Sounds, Soft Results - Vital Signs Recent Vital Signs: Last Vital Signs Temp 98 F 10/22/17 15:40 Pulse 82 10/22/17 15:40 Resp 20 10/22/17 15:40 BP 165/82 H 10/22/17 18:12 Pulse Ox 97 10/22/17 15:40 - Labs Result Diagrams: 10/22/17 10:06 10/22/17 10:06 Labs: Laboratory Results - last 24 hr 10/21/17 10/22/17 10/22/17 21:14 06:06 10:06 WBC 18.4 H RBC 2.87 L Hgb 9.5 L Hct 28.5 L MCV 99.2 H MCH 33.0 H MCHC 33.3 RDW 15.6 H Plt Count 211 MPV 8.9 Neut % (Auto) 88.9 H Lymph % (Auto) 6.6 L Darke % (Auto) 4.0 Eos % (Auto) 0.1 Baso % (Auto) 0.4 Neut # (Auto) 16.3 H Lymph # (Auto) 1.2 Darke # (Auto) 0.7 Eos # (Auto) 0.0 Baso # (Auto) 0.1 Neutrophils % (Manual) 91 H Lymphocytes % (Manual) 6 L Monocytes % (Manual) 3 Platelet Estimate Normal Hypochromasia (manual) Slight Sodium Potassium Chloride Carbon Dioxide Anion Gap BUN Creatinine Est GFR ( Amer) Est GFR (Non-Af Amer) POC Glucose (mg/dL) 398 H 413 H* Random Glucose Calcium Total Bilirubin AST ALT Alkaline Phosphatase Total Protein Albumin Globulin Albumin/Globulin Ratio 10/22/17 10/22/17 10/22/17 10:06 12:37 16:13 WBC RBC Hgb Hct MCV MCH MCHC RDW Plt Count MPV Neut % (Auto) Lymph % (Auto) Darke % (Auto) Eos % (Auto) Baso % (Auto) Neut # (Auto) Lymph # (Auto) Darke # (Auto) Eos # (Auto) Baso # (Auto) Neutrophils % (Manual) Lymphocytes % (Manual) Monocytes % (Manual) Platelet Estimate Hypochromasia (manual) Sodium 131 L Potassium 5.5 H Chloride 90 L Carbon Dioxide 21 L Anion Gap 25 H BUN 100 H* D Creatinine 9.3 H* D Est GFR ( Amer) 6 Est GFR (Non-Af Amer) 5 POC Glucose (mg/dL) 222 H 238 H Random Glucose 446 H* D Calcium 8.4 L Total Bilirubin 0.7 AST 30 ALT 15 Alkaline Phosphatase 221 H Total Protein 7.1 Albumin 4.1 Globulin 3.0 Albumin/Globulin Ratio 1.3 Assessment & Plan (1) COPD with acute exacerbation Status: Acute Comment: patient with history of smoking most likely has underlying COPD. Complaining of cough associated with shortness of breath. Chest x-ray showed no infiltrate. Continue treatment for bronchitis. Continue antibiotics and nebulizer treatment. Continue IV steroids. Continue hemodialysis. Repeat chest x-ray. Consider sleep study
[2017-10-22] MEDS: Fluticasone-Salmeterol 250-50mcg Diskus INH SCH (19:20)
[2017-10-22] MEDS ORDERED: (Lantus) Insulin Glargine, Recombinant SC ONE (22:17)
[2017-10-23] MEDS: HYDROmorphone 0.5 mg/0.5 ml ISec IVP PRN ×5 (00:03→19:27)
--- NOTE | 2017-10-23 00:25 | CP.PCM.PN ---
Subjective - Date & Time of Evaluation Date of Evaluation: 10/22/17 Time of Evaluation: 17:00 - Subjective Subjective: Pt seen and evaluated at bedside Objective - Vital Signs/Intake and Output Vital Signs (last 24 hours): Temp Pulse Resp BP Pulse Ox 98 F 82 20 165/82 H 97 10/22/17 15:40 10/22/17 15:40 10/22/17 15:40 10/22/17 18:12 10/22/17 15:40 Intake and Output: 10/22/17 10/23/17 18:59 06:59 Intake Total 300 Balance 300 - Medications Medications: Current Medications Acetaminophen (Tylenol 325mg Tab) 650 mg PO Q4 PRN PRN Reason: Fever >100.4 F Last Admin: 10/16/17 21:45 Dose: 650 mg Albuterol/Ipratropium (Duoneb 3 Mg/0.5 Mg (3 Ml) Ud) 3 ml INH RQ6 [facility] Last Admin: 10/22/17 19:20 Dose: 3 ml Calcium Acetate (Phoslo) 667 mg PO TIDCC [facility] Last Admin: 10/22/17 17:22 Dose: 667 mg Carvedilol (Coreg) 12.5 mg PO BID [facility] Last Admin: 10/22/17 18:12 Dose: 12.5 mg Clonidine HCl (Catapres) 0.3 mg PO Q8 [facility] Last Admin: 10/22/17 22:29 Dose: 0.3 mg Diphenhydramine HCl (Benadryl) 25 mg PO Q8 PRN PRN Reason: Itching / Pruritus Last Admin: 10/17/17 21:53 Dose: 25 mg Epoetin Cornelius (Procrit) 4,000 unit IV [facility] [place] Last Admin: 10/22/17 10:35 Dose: 4,000 unit Gabapentin (Neurontin) 100 mg PO TID [facility] Last Admin: 10/22/17 17:22 Dose: 100 mg Guaifenesin/Dextromethorphan (Robitussin Dm) 10 ml PO Q4H PRN PRN Reason: Cough and congestion Last Admin: 10/22/17 14:51 Dose: 10 ml Heparin Sodium (Porcine) (Heparin) 2,000 units IVP [facility] [place] Last Admin: 10/22/17 11:03 Dose: 2,000 units Hydralazine HCl (Apresoline) 100 mg PO Q8 [facility] Last Admin: 10/22/17 22:29 Dose: 100 mg Hydromorphone HCl (Dilaudid) 0.5 mg IVP Q4H PRN PRN Reason: pain Last Admin: 10/23/17 00:03 Dose: 0.5 mg Ceftriaxone Sodium 1 gm/ (Sodium Chloride) 100 mls @ 200 mls/hr IVPB DAILY [facility] PRN Reason: Protocol Insulin Aspart (Novolog) 0 unit SC ACHS [facility] PRN Reason: Protocol Last Admin: 10/22/17 22:29 Dose: 3 unit Methylprednisolone (Solu-Medrol) 60 mg IVP Q8H [facility] Last Admin: 10/22/17 18:37 Dose: 60 mg Metoclopramide HCl (Reglan) 5 mg IVP ACHS [facility] Last Admin: 10/22/17 22:30 Dose: 5 mg Nifedipine (Procardia Xl) 120 mg PO DAILY [facility] Last Admin: 10/22/17 14:49 Dose: 120 mg Ondansetron HCl (Zofran Inj) 4 mg IVP Q8 PRN PRN Reason: Nausea/Vomiting Pantoprazole Sodium (Protonix Ec Tab) 40 mg PO DAILY [facility] Last Admin: 10/22/17 14:49 Dose: 40 mg Rosuvastatin Calcium (Crestor) 5 mg PO HS [facility] Last Admin: 10/22/17 22:29 Dose: 5 mg Fluticasone/Salmeterol (Advair Diskus 250/50) 1 puff INH RQ12 [facility] Last Admin: 10/22/17 19:20 Dose: 1 puff Vitamin B Complex/Vit C/Folic Acid (Nephro-Anjelica) 1 tab PO 0800 [facility] Last Admin: 10/22/17 08:10 Dose: 1 tab - Labs Labs: 10/22/17 10:06 10/22/17 10:06 Assessment and Plan (1) COPD with acute exacerbation Status: Acute (2) Abdominal pain Status: Acute (3) Diabetic foot ulcer Status: Acute (4) Hypertension Status: Chronic (5) Hypertensive CKD, ESRD on dialysis Status: Chronic
[2017-10-23] MEDS: Albuterol-Ipratrop 3 mg / 0.5 (3 ml) UD INH SCH ×4 (01:03→19:10)
[2017-10-23] MEDS ORDERED: (Novolin R) Insulin Human Regular 100 units/ml vial SC ONE (02:18)
[2017-10-23] MEDS: Fluticasone-Salmeterol 250-50mcg Diskus INH SCH (07:39)
[2017-10-23 08:13] LABS: BLOOD UREA NITROGEN 76 mg/dL (7-17); CALCIUM 8.5 mg/dl (8.6-10.4); GFR AFRICAN-AMERICAN 8; GFR NON-AFRICAN AMERICAN 6
[2017-10-23] MEDS ORDERED: (Lantus) Insulin Glargine, Recombinant SC STA (08:26)
[2017-10-23] MEDS: Multivitamin Vitamin B Complex (Nephro-Vite) Tab PO SCH (08:43)
[2017-10-23] MEDS: (Novolog) Insulin Aspart, Recombinant 100 u/ml 10 ml vial SC SCH ×4 (08:44→22:17)
[2017-10-23] MEDS: Pantoprazole 40 mg EC Tab PO SCH (10:34)
[2017-10-23] MEDS: NIFEdipine 60 mg ER Tab PO SCH (10:36)
--- NOTE | 2017-10-23 14:37 | CP.PCM.PN ---
Subjective - Date & Time of Evaluation Date of Evaluation: 10/23/17 Time of Evaluation: 14:34 - Subjective Subjective: Nephrology Consultation Note: Assessment: Stable COPD exacerbation Acute Gastroenteritis (resolved) Missed HD with hyperkalemia Hyperglycemia Diabetic chronic Kidney Disease (E11.22) Hypertensive Chronic Kidney Disease (I12.0) End stage renal disease (N18.6) dependence on hemodialysis (Z99.2) (MWF) via AVF Anemia (D64.9), Hyperphosphatemia (E83.39), Secondary Hyperparathyroidism (E21.1 ), HTN (I12.0) ex smoker Plan: Will plan for HD tomorrow as ordered per [facility] schedule. Continue with Nephrovite 1 tab/day. low K diet d/w pt PRBC as needed for anemia. on EDMAR with dialysis as last Hb 9.4 Continue with phos binders, check phos level with next labs BP control with meds as ordered. Patient not on RAAS shay as tendency for hyperkalemia. Increased hydralazine 100 mg q8, nifedipine 120 mg/day. added minoxidil 5 mg/day as BP remains uncontrolled Glycemic control, Dialysis consistent diet Further work up/management as per primary team Dose meds/antibiotics for ESRD status. Avoid fleets enema/magnesium based laxatives. pt on steroids and nebs for COPD exac. Pulmonary following Thanks for allowing me to participate in care of your patient. Will follow patient with you. Please call if any Qs. had d/w team Dr Aurelio Brar Office: [phone] HPI: Pt is a 42 F with hx of ESRD on hemodialysis (MWF) via [facility] @ [facility] , last dialysis Sunday, chronic anemia, hyperphosphatemia, secondary hyperparathyroidism, Diabetes Mellitus, hypertension presented with complaints of feeling sick since sunday with pain abdomen, nausea/vomitting and loose stool Renal consult requested for ESRD management. also reports cough ROS: Cardiovascular: No chest pain. Pulmonary: has cough. better wheeze but feels tightness on breathing Gastrointestinal: improved abdominal pain no nausea. no further vomiting and loose stool Genitourinary: No pain while urinating. Denies blood in urine. makes small amount of urine All other negative except as mentioned in HPI pt says I don't want to go to rehab or TCU Physical Examination: General Appearance: comfortable, in no acute respiratory distress, co-operative . Vitals reviewed and noted as below Head; Atraumatic, normocephalic ENT: no ulcers no thrush. Tongue is midline. Oropharynx: no rash or ulcers. EYES: Pupils are equal, round and reactive to light accommodation. Eye muscles and extraocular movement intact. Sclera is anicteric. Neck; supple no lymphadenopathy, no thyromegaly or bruit Lungs: Normal respiratory rate/effort. Breath sounds bilateral equal and clear today, air entry decreased at bases though Heart: Normal rate. s1s2 normal. No rub or gallop. Extremities: no edema. No varicose veins Neurological: Patient is alert, awake and oriented to person, place and time. No focal deficit. Strength bilateral appropriate and equal Skin: Warm and dry. Normal turgor. No rash. Palpitation: Normal elasticity for age Abdomen: Abdomen is soft. Bowel sounds +. There is mild diffuse abdominal tenderness, no guarding/rigidity or organomegaly Psych: normal insight and normal affect/mood MSK: no joint tenderness or swelling. Digits and nails normal, no deformity : kidney or bladder not palpable Access: AVF Labs/imaging reviewed. Past medical history, past surgical history, family history, social history, allergy reviewed and noted as below Family Hx: no hx of CKD. Non contributory Objective - Vital Signs/Intake and Output Vital Signs (last 24 hours): Temp Pulse Resp BP Pulse Ox 97.7 F 76 18 174/77 H 98 10/23/17 07:30 10/23/17 11:33 10/23/17 07:30 10/23/17 11:33 10/23/17 07:30 - Medications Medications: Current Medications Acetaminophen (Tylenol 325mg Tab) 650 mg PO Q4 PRN PRN Reason: Fever >100.4 F Last Admin: 10/16/17 21:45 Dose: 650 mg Albuterol/Ipratropium (Duoneb 3 Mg/0.5 Mg (3 Ml) Ud) 3 ml INH RQ6 [facility] Last Admin: 10/23/17 13:46 Dose: 3 ml Calcium Acetate (Phoslo) 667 mg PO TIDCC [facility] Last Admin: 10/23/17 12:39 Dose: 667 mg Carvedilol (Coreg) 12.5 mg PO BID [facility] Last Admin: 10/23/17 10:34 Dose: 12.5 mg Clonidine HCl (Catapres) 0.3 mg PO Q8 [facility] Last Admin: 10/23/17 14:18 Dose: 0.3 mg Diphenhydramine HCl (Benadryl) 25 mg PO Q8 PRN PRN Reason: Itching / Pruritus Last Admin: 10/17/17 21:53 Dose: 25 mg Epoetin Cornelius (Procrit) 4,000 unit IV F [facility] Last Admin: 10/22/17 10:35 Dose: 4,000 unit Gabapentin (Neurontin) 100 mg PO TID [facility] Last Admin: 10/23/17 14:18 Dose: 100 mg Guaifenesin/Dextromethorphan (Robitussin Dm) 10 ml PO Q4H PRN PRN Reason: Cough and congestion Last Admin: 10/22/17 14:51 Dose: 10 ml Heparin Sodium (Porcine) (Heparin) 2,000 units IVP [facility] Last Admin: 10/22/17 11:03 Dose: 2,000 units Hydralazine HCl (Apresoline) 100 mg PO Q8 [facility] Last Admin: 10/23/17 14:18 Dose: 100 mg Hydromorphone HCl (Dilaudid) 0.5 mg IVP Q4H PRN PRN Reason: pain Last Admin: 10/23/17 10:35 Dose: 0.5 mg Ceftriaxone Sodium 1 gm/ (Sodium Chloride) 100 mls @ 200 mls/hr IVPB DAILY [facility] PRN Reason: Protocol Last Admin: 10/23/17 10:36 Dose: 200 mls/hr Insulin Aspart (Novolog) 0 unit SC [facility] PRN Reason: Protocol Last Admin: 10/23/17 12:39 Dose: 5 unit Methylprednisolone (Solu-Medrol) 60 mg IVP Q8H [facility] Last Admin: 10/23/17 10:35 Dose: 60 mg Metoclopramide HCl (Reglan) 5 mg IVP ACHS [facility] Last Admin: 10/23/17 12:41 Dose: Not Given Minoxidil (Minoxidil) 5 mg PO DAILY [facility] Last Admin: 10/23/17 11:36 Dose: 5 mg Nifedipine (Procardia Xl) 120 mg PO DAILY [facility] Last Admin: 10/23/17 10:36 Dose: 120 mg Ondansetron HCl (Zofran Inj) 4 mg IVP Q8 PRN PRN Reason: Nausea/Vomiting Pantoprazole Sodium (Protonix Ec Tab) 40 mg PO DAILY [facility] Last Admin: 10/23/17 10:34 Dose: 40 mg Rosuvastatin Calcium (Crestor) 5 mg PO HS [facility] Last Admin: 10/22/17 22:29 Dose: 5 mg Fluticasone/Salmeterol (Advair Diskus 250/50) 1 puff INH RQ12 [facility] Last Admin: 10/23/17 07:39 Dose: 1 puff Vitamin B Complex/Vit C/Folic Acid (Nephro-Anjelica) 1 tab PO 0800 [facility] Last Admin: 10/23/17 08:43 Dose: 1 tab - Labs Labs: 10/22/17 10:06 10/23/17 06:06
--- NOTE | 2017-10-23 15:28 | CT ---
PROCEDURE: CT Chest without contrast HISTORY: sob/copd exc COMPARISON: Noncontrast chest CT 10/27/2016. TECHNIQUE: Contiguous axial images were obtained through the chest without intravenous contrast enhancement. Sagittal and coronal reconstructions were performed. Radiation dose (DLP): 867.83 mGy-cm. This CT exam was performed using one or more of the following dose reduction techniques: Automated exposure control, adjustment of the mA and/or kV according to patient size, and/or use of iterative reconstruction technique. FINDINGS: LUNGS: Mild bilateral lower lobe infiltrates are identified with associated linear atelectasis or fibrosis and dependent atelectasis as well. The right middle lobe appears minimally affected. Central airways appear clear. No definitive mass within well-aerated lung laterally. MEDIASTINUM: The thoracic inlet appears unremarkable. Thoracic aorta remains normal caliber. Cardiac size is upper limits normal. Main pulmonary artery unremarkable. No vascular congestion. Mild left axial lymphadenopathy is appreciated though diminished in the interval with the dominant lymph node measuring 2.8 x 2.1 cm compare 3.4 x 2.3 cm 10/27/2016. PLEURA: No pleural fluid. No pneumothorax. BONES: No fracture. No destructive lesion. UPPER ABDOMEN: Prior cholecystectomy noted OTHER FINDINGS: Resolution of prior anasarca pattern. IMPRESSION: Limited bilateral lower lobe infiltrates minimally affecting right middle lobe as well. Likely concomitant dependent atelectasis bilaterally as well. Recurrent or diminished left axillary lymphadenopathy. Apparent resolution of prior anasarca pattern. Likely resolution of prominent left breast mastoiditis pattern though the left breast not completely captured in the current exam.
--- NOTE | 2017-10-23 17:27 | CP.PCM.PN ---
Subjective - Date & Time of Evaluation Date of Evaluation: 10/23/17 Time of Evaluation: 14:55 - Subjective Subjective: patient seen and examined Still complaining of cough And shortness of breath Afebrile No chest pain Patient is awake and responsive CAT scan of the chest consistent wi pneumonia Continue antibiotics Continue nebulizer treatment Continue hemodialysis Objective - Vital Signs/Intake and Output Vital Signs (last 24 hours): Temp Pulse Resp BP Pulse Ox 98.0 F 75 20 144/71 97 10/23/17 15:30 10/23/17 15:30 10/23/17 15:30 10/23/17 15:30 10/23/17 15:30 - Medications Medications: Current Medications Acetaminophen (Tylenol 325mg Tab) 650 mg PO Q4 PRN PRN Reason: Fever >100.4 F Last Admin: 10/16/17 21:45 Dose: 650 mg Albuterol/Ipratropium (Duoneb 3 Mg/0.5 Mg (3 Ml) Ud) 3 ml INH RQ6 [facility] Last Admin: 10/23/17 13:46 Dose: 3 ml Calcium Acetate (Phoslo) 667 mg PO TIDCC [facility] Last Admin: 10/23/17 12:39 Dose: 667 mg Carvedilol (Coreg) 12.5 mg PO BID [facility] Last Admin: 10/23/17 10:34 Dose: 12.5 mg Clonidine HCl (Catapres) 0.3 mg PO Q8 [facility] Last Admin: 10/23/17 14:18 Dose: 0.3 mg Diphenhydramine HCl (Benadryl) 25 mg PO Q8 PRN PRN Reason: Itching / Pruritus Last Admin: 10/17/17 21:53 Dose: 25 mg Epoetin Cornelius (Procrit) 4,000 unit IV [facility] [place] Last Admin: 10/22/17 10:35 Dose: 4,000 unit Gabapentin (Neurontin) 100 mg PO TID [facility] Last Admin: 10/23/17 14:18 Dose: 100 mg Guaifenesin/Dextromethorphan (Robitussin Dm) 10 ml PO Q4H PRN PRN Reason: Cough and congestion Last Admin: 10/22/17 14:51 Dose: 10 ml Heparin Sodium (Porcine) (Heparin) 2,000 units IVP [facility] [place] Last Admin: 10/22/17 11:03 Dose: 2,000 units Hydralazine HCl (Apresoline) 100 mg PO Q8 [facility] Last Admin: 10/23/17 14:18 Dose: 100 mg Hydromorphone HCl (Dilaudid) 0.5 mg IVP Q4H PRN PRN Reason: pain Last Admin: 10/23/17 15:24 Dose: 0.5 mg Ceftriaxone Sodium 1 gm/ (Sodium Chloride) 100 mls @ 200 mls/hr IVPB DAILY [facility] PRN Reason: Protocol Last Admin: 10/23/17 10:36 Dose: 200 mls/hr Insulin Aspart (Novolog) 0 unit SC ACHS [facility] PRN Reason: Protocol Last Admin: 10/23/17 12:39 Dose: 5 unit Insulin Glargine (Lantus) 10 unit SC HS [facility] Methylprednisolone (Solu-Medrol) 60 mg IVP Q8H [facility] Last Admin: 10/23/17 10:35 Dose: 60 mg Metoclopramide HCl (Reglan) 5 mg IVP ACHS [facility] Last Admin: 10/23/17 12:41 Dose: Not Given Minoxidil (Minoxidil) 5 mg PO DAILY [facility] Last Admin: 10/23/17 11:36 Dose: 5 mg Nifedipine (Procardia Xl) 120 mg PO DAILY [facility] Last Admin: 10/23/17 10:36 Dose: 120 mg Ondansetron HCl (Zofran Inj) 4 mg IVP Q8 PRN PRN Reason: Nausea/Vomiting Pantoprazole Sodium (Protonix Ec Tab) 40 mg PO DAILY [facility] Last Admin: 10/23/17 10:34 Dose: 40 mg Rosuvastatin Calcium (Crestor) 5 mg PO HS [facility] Last Admin: 10/22/17 22:29 Dose: 5 mg Fluticasone/Salmeterol (Advair Diskus 250/50) 1 puff INH RQ12 [facility] Last Admin: 10/23/17 07:39 Dose: 1 puff Vitamin B Complex/Vit C/Folic Acid (Nephro-Anjelica) 1 tab PO 0800 [facility] Last Admin: 10/23/17 08:43 Dose: 1 tab - Labs Labs: 10/22/17 10:06 10/23/17 06:06 Assessment and Plan (1) COPD with acute exacerbation Status: Acute
[2017-10-23] MEDS: Piperacill/Tazo 2.25gm in Dex 2.25 GM/50 ML BAG IVPB SCH (18:12)
[2017-10-23] MEDS: (Lantus) Insulin Glargine, Recombinant SC SCH (22:17)
[2017-10-24] MEDS: Albuterol-Ipratrop 3 mg / 0.5 (3 ml) UD INH SCH ×4 (01:06→19:09)
[2017-10-24] MEDS: HYDROmorphone 0.5 mg/0.5 ml ISec IVP PRN ×4 (01:57→19:31)
[2017-10-24] MEDS: Piperacill/Tazo 2.25gm in Dex 2.25 GM/50 ML BAG IVPB SCH ×3 (02:01→17:35)
[2017-10-24] MEDS: Multivitamin Vitamin B Complex (Nephro-Vite) Tab PO SCH (07:50)
[2017-10-24] MEDS: guaiFENesin DM 200 mg-20 mg/10 ml UD PO PRN ×2 (07:51→14:41)
[2017-10-24] MEDS: (Novolog) Insulin Aspart, Recombinant 100 u/ml 10 ml vial SC SCH ×4 (07:51→22:23)
--- NOTE | 2017-10-24 07:51 | CP.PCM.PN ---
Subjective - Date & Time of Evaluation Date of Evaluation: 10/23/17 Time of Evaluation: 18:00 - Subjective Subjective: Pt seen and examined by me Objective - Vital Signs/Intake and Output Vital Signs (last 24 hours): Temp Pulse Resp BP Pulse Ox 98.3 F 80 20 122/67 98 10/23/17 23:05 10/24/17 07:49 10/24/17 05:30 10/24/17 07:49 10/23/17 23:05 Intake and Output: 10/24/17 10/24/17 06:59 18:59 Output Total 300 Balance -300 - Medications Medications: Current Medications Acetaminophen (Tylenol 325mg Tab) 650 mg PO Q4 PRN PRN Reason: Fever >100.4 F Last Admin: 10/16/17 21:45 Dose: 650 mg Albuterol/Ipratropium (Duoneb 3 Mg/0.5 Mg (3 Ml) Ud) 3 ml INH RQ6 [facility] Last Admin: 10/24/17 07:36 Dose: 3 ml Aspirin (Ecotrin) 81 mg PO DAILY [facility] Calcium Acetate (Phoslo) 667 mg PO TIDCC [facility] Last Admin: 10/23/17 17:31 Dose: 667 mg Carvedilol (Coreg) 12.5 mg PO BID [facility] Last Admin: 10/23/17 17:30 Dose: 12.5 mg Clonidine HCl (Catapres) 0.3 mg PO Q8 [facility] Last Admin: 10/24/17 05:40 Dose: 0.3 mg Diphenhydramine HCl (Benadryl) 25 mg PO Q8 PRN PRN Reason: Itching / Pruritus Last Admin: 10/17/17 21:53 Dose: 25 mg Epoetin Cornelius (Procrit) 4,000 unit IV [facility] Last Admin: 10/22/17 10:35 Dose: 4,000 unit Gabapentin (Neurontin) 100 mg PO TID [facility] Last Admin: 10/23/17 17:30 Dose: 100 mg Guaifenesin/Dextromethorphan (Robitussin Dm) 10 ml PO Q4H PRN PRN Reason: Cough and congestion Last Admin: 10/22/17 14:51 Dose: 10 ml Heparin Sodium (Porcine) (Heparin) 2,000 units IVP F [facility] Last Admin: 10/22/17 11:03 Dose: 2,000 units Hydralazine HCl (Apresoline) 100 mg PO Q8 [facility] Last Admin: 10/24/17 05:40 Dose: 100 mg Hydromorphone HCl (Dilaudid) 0.5 mg IVP Q4H PRN PRN Reason: pain Last Admin: 10/24/17 01:57 Dose: 0.5 mg Piperacillin Sod/Tazobactam Sod (Zosyn 2.25 Gm Iv [facility]) 2.25 gm in 50 mls @ 100 mls/hr IVPB Q8H [facility] PRN Reason: Protocol Last Admin: 10/24/17 02:01 Dose: 100 mls/hr Insulin Aspart (Novolog) 0 unit SC ACHS [facility] PRN Reason: Protocol Last Admin: 10/23/17 22:17 Dose: 3 unit Insulin Glargine (Lantus) 10 unit SC [facility] Last Admin: 10/23/17 22:17 Dose: 10 units Methylprednisolone (Solu-Medrol) 60 mg IVP Q8H [facility] Last Admin: 10/24/17 02:35 Dose: 60 mg Metoclopramide HCl (Reglan) 5 mg IVP ACHS [facility] Last Admin: 10/24/17 06:48 Dose: 5 mg Minoxidil (Minoxidil) 5 mg PO DAILY [facility] Last Admin: 10/23/17 11:36 Dose: 5 mg Nifedipine (Procardia Xl) 120 mg PO DAILY [facility] Last Admin: 10/23/17 10:36 Dose: 120 mg Ondansetron HCl (Zofran Inj) 4 mg IVP Q8 PRN PRN Reason: Nausea/Vomiting Pantoprazole Sodium (Protonix Ec Tab) 40 mg PO DAILY [facility] Last Admin: 10/23/17 10:34 Dose: 40 mg Rosuvastatin Calcium (Crestor) 5 mg PO HS [facility] Last Admin: 10/23/17 22:16 Dose: 5 mg Vitamin B Complex/Vit C/Folic Acid (Nephro-Anjelica) 1 tab PO 0800 [facility] Last Admin: 10/23/17 08:43 Dose: 1 tab - Labs Labs: 10/22/17 10:06 10/23/17 06:06 Assessment and Plan (1) COPD with acute exacerbation Status: Acute (2) Abdominal pain Status: Acute (3) Diabetic foot ulcer Status: Acute (4) Hypertension Status: Chronic (5) Hypertensive CKD, ESRD on dialysis Status: Chronic
--- NOTE | 2017-10-24 11:10 | CP.PCM.PN ---
Subjective - Date & Time of Evaluation Date of Evaluation: 10/24/17 Time of Evaluation: 11:09 - Subjective Subjective: Nephrology Consultation Note: Assessment: Stable COPD exacerbation with pneumonia Acute Gastroenteritis (resolved) Missed HD with hyperkalemia Hyperglycemia Diabetic chronic Kidney Disease (E11.22) Hypertensive Chronic Kidney Disease (I12.0) End stage renal disease (N18.6) dependence on hemodialysis (Z99.2) (MWF) via AVF Anemia (D64.9), Hyperphosphatemia (E83.39), Secondary Hyperparathyroidism (E21.1 ), HTN (I12.0) ex smoker Plan: Will plan for HD today as ordered per [facility] schedule. Continue with Nephrovite 1 tab/day. low K diet d/w pt PRBC as needed for anemia. on EDMAR with dialysis as last Hb 9.4 Continue with phos binders, check phos level with next labs BP control with meds as ordered. Patient not on RAAS shay as tendency for hyperkalemia. Increased hydralazine 100 mg q8, nifedipine 120 mg/day. added minoxidil 5 mg/day now BP better controlled Glycemic control, Dialysis consistent diet Further work up/management as per primary team Dose meds/antibiotics for ESRD status. Avoid fleets enema/magnesium based laxatives. pt on steroids and nebs for COPD exac. Pulmonary following Thanks for allowing me to participate in care of your patient. Will follow patient with you. Please call if any Qs. had d/w team Dr Aurelio Brar Office: [phone] HPI: Pt is a 42 F with hx of ESRD on hemodialysis (MWF) via AVF @ [facility] , last dialysis Sunday, chronic anemia, hyperphosphatemia, secondary hyperparathyroidism, Diabetes Mellitus, hypertension presented with complaints of feeling sick since sunday with pain abdomen, nausea/vomitting and loose stool Renal consult requested for ESRD management. also reports cough ROS: Cardiovascular: No chest pain. Pulmonary: improved cough. resolved wheeze but feels tightness on breathing Gastrointestinal: improved abdominal pain no nausea. no further vomiting and loose stool Genitourinary: No pain while urinating. Denies blood in urine. makes small amount of urine All other negative except as mentioned in HPI Physical Examination: General Appearance: comfortable, in no acute respiratory distress, co-operative . Vitals reviewed and noted as below Head; Atraumatic, normocephalic ENT: no ulcers no thrush. Tongue is midline. Oropharynx: no rash or ulcers. EYES: Pupils are equal, round and reactive to light accommodation. Eye muscles and extraocular movement intact. Sclera is anicteric. Neck; supple no lymphadenopathy, no thyromegaly or bruit Lungs: Normal respiratory rate/effort. Breath sounds bilateral equal and clear today, air entry decreased at bases though Heart: Normal rate. s1s2 normal. No rub or gallop. Extremities: no edema. No varicose veins Neurological: Patient is alert, awake and oriented to person, place and time. No focal deficit. Strength bilateral appropriate and equal Skin: Warm and dry. Normal turgor. No rash. Palpitation: Normal elasticity for age Abdomen: Abdomen is soft. Bowel sounds +. There is mild diffuse abdominal tenderness, no guarding/rigidity or organomegaly Psych: normal insight and normal affect/mood MSK: no joint tenderness or swelling. Digits and nails normal, no deformity : kidney or bladder not palpable Access: AVF Labs/imaging reviewed. Past medical history, past surgical history, family history, social history, allergy reviewed and noted as below Family Hx: no hx of CKD. Non contributory Objective - Vital Signs/Intake and Output Vital Signs (last 24 hours): Temp Pulse Resp BP Pulse Ox 97.8 F 75 18 119/59 L 98 10/24/17 09:50 10/24/17 10:23 10/24/17 10:23 10/24/17 10:23 10/24/17 10:23 Intake and Output: 10/24/17 10/24/17 06:59 18:59 Output Total 300 Balance -300 - Medications Medications: Current Medications Acetaminophen (Tylenol 325mg Tab) 650 mg PO Q4 PRN PRN Reason: Fever >100.4 F Last Admin: 10/16/17 21:45 Dose: 650 mg Albuterol/Ipratropium (Duoneb 3 Mg/0.5 Mg (3 Ml) Ud) 3 ml INH RQ6 [facility] Last Admin: 10/24/17 07:36 Dose: 3 ml Aspirin (Ecotrin) 81 mg PO DAILY [facility] Calcium Acetate (Phoslo) 667 mg PO TIDCC [facility] Last Admin: 10/24/17 07:50 Dose: 667 mg Carvedilol (Coreg) 12.5 mg PO BID [facility] Last Admin: 10/24/17 10:39 Dose: Not Given Clonidine HCl (Catapres) 0.3 mg PO Q8 [facility] Last Admin: 10/24/17 05:40 Dose: 0.3 mg Diphenhydramine HCl (Benadryl) 25 mg PO Q8 PRN PRN Reason: Itching / Pruritus Last Admin: 10/17/17 21:53 Dose: 25 mg Epoetin Cornelius (Procrit) 4,000 unit IV [facility] Last Admin: 10/22/17 10:35 Dose: 4,000 unit Gabapentin (Neurontin) 100 mg PO TID [facility] Last Admin: 10/24/17 10:39 Dose: Not Given Guaifenesin/Dextromethorphan (Robitussin Dm) 10 ml PO Q4H PRN PRN Reason: Cough and congestion Last Admin: 10/24/17 07:51 Dose: 10 ml Heparin Sodium (Porcine) (Heparin) 2,000 units IVP [facility] Last Admin: 10/22/17 11:03 Dose: 2,000 units Hydralazine HCl (Apresoline) 100 mg PO Q8 [facility] Last Admin: 10/24/17 05:40 Dose: 100 mg Hydromorphone HCl (Dilaudid) 0.5 mg IVP Q4H PRN PRN Reason: pain Last Admin: 10/24/17 07:50 Dose: 0.5 mg Piperacillin Sod/Tazobactam Sod (Zosyn 2.25 Gm Iv Premix) 2.25 gm in 50 mls @ 100 mls/hr IVPB Q8H [facility] PRN Reason: Protocol Last Admin: 10/24/17 10:40 Dose: Not Given Insulin Aspart (Novolog) 0 unit SC [facility] PRN Reason: Protocol Last Admin: 10/24/17 07:51 Dose: 5 unit Insulin Glargine (Lantus) 10 unit SC [facility] Last Admin: 10/23/17 22:17 Dose: 10 units Methylprednisolone (Solu-Medrol) 60 mg IVP Q8H [facility] Last Admin: 10/24/17 10:40 Dose: Not Given Metoclopramide HCl (Reglan) 5 mg IVP [facility] Last Admin: 10/24/17 06:48 Dose: 5 mg Minoxidil (Minoxidil) 5 mg PO DAILY [facility] Last Admin: 10/23/17 11:36 Dose: 5 mg Nifedipine (Procardia Xl) 120 mg PO DAILY [facility] Last Admin: 10/23/17 10:36 Dose: 120 mg Ondansetron HCl (Zofran Inj) 4 mg IVP Q8 PRN PRN Reason: Nausea/Vomiting Pantoprazole Sodium (Protonix Ec Tab) 40 mg PO DAILY [facility] Last Admin: 10/23/17 10:34 Dose: 40 mg Rosuvastatin Calcium (Crestor) 5 mg PO HS [facility] Last Admin: 10/23/17 22:16 Dose: 5 mg Vitamin B Complex/Vit C/Folic Acid (Nephro-Anjelica) 1 tab PO 0800 [facility] Last Admin: 10/24/17 07:50 Dose: 1 tab - Labs Labs: 10/22/17 10:06 10/23/17 06:06
[2017-10-24] MEDS: EPOETIN ALFA 4,000 UNIT/ML ML Dialysis IV SCH (11:35)
[2017-10-24] MEDS: Pantoprazole 40 mg EC Tab PO SCH (14:40)
[2017-10-24] MEDS: NIFEdipine 60 mg ER Tab PO SCH (14:41)
[2017-10-24] MEDS ORDERED: MethylPREDNISolone 40 mg Vial IVP SCH (22:00)
[2017-10-24] MEDS: (Lantus) Insulin Glargine, Recombinant SC SCH (22:22)
--- NOTE | 2017-10-24 23:01 | CARD ---
APPROVED REPORT EKG Measurement Heart [id number] <Conclusion> Normal sinus rhythm Left axis deviation Abnormal ECG
[2017-10-24] MEDS ORDERED: Sodium Chloride 0.9% 1,000 ML IV ONE (23:36)
[2017-10-24] MEDS ORDERED: Sodium Chloride 0.9% 500 ML IV ONE (23:37)
--- NOTE | 2017-10-24 23:51 | CP.PCM.PN ---
Subjective - Date & Time of Evaluation Date of Evaluation: 10/24/17 Time of Evaluation: 18:00 - Subjective Subjective: patient seen and examined Still complaining of cough And shortness of breath Afebrile No chest pain Patient is awake and responsive CAT scan of the chest consistent wi pneumonia Continue antibiotics Continue nebulizer treatment Continue hemodialysis Objective - Vital Signs/Intake and Output Vital Signs (last 24 hours): Temp Pulse Resp BP Pulse Ox 97.4 F L 93 H 22 121/67 97 10/24/17 15:15 10/24/17 15:15 10/24/17 15:15 10/24/17 17:27 10/24/17 15:15 Intake and Output: 10/24/17 10/25/17 18:59 06:59 Intake Total 300 Balance 300 - Medications Medications: Current Medications Acetaminophen (Tylenol 325mg Tab) 650 mg PO Q4 PRN PRN Reason: Fever >100.4 F Last Admin: 10/16/17 21:45 Dose: 650 mg Albuterol/Ipratropium (Duoneb 3 Mg/0.5 Mg (3 Ml) Ud) 3 ml INH RQ6 [facility] Last Admin: 10/24/17 19:09 Dose: 3 ml Aspirin (Ecotrin) 81 mg PO DAILY [facility] Last Admin: 10/24/17 14:39 Dose: 81 mg Calcium Acetate (Phoslo) 667 mg PO TIDCC [facility] Last Admin: 10/24/17 17:29 Dose: 667 mg Carvedilol (Coreg) 12.5 mg PO BID [facility] Last Admin: 10/24/17 17:27 Dose: 12.5 mg Clonidine HCl (Catapres) 0.3 mg PO Q8 [facility] Last Admin: 10/24/17 22:21 Dose: Not Given Diphenhydramine HCl (Benadryl) 25 mg PO Q8 PRN PRN Reason: Itching / Pruritus Last Admin: 10/17/17 21:53 Dose: 25 mg Epoetin Cornelius (Procrit) 4,000 unit IV MWF [facility] Last Admin: 10/24/17 11:35 Dose: 4,000 unit Gabapentin (Neurontin) 100 mg PO TID [facility] Last Admin: 10/24/17 17:28 Dose: 100 mg Guaifenesin/Dextromethorphan (Robitussin Dm) 10 ml PO Q4H PRN PRN Reason: Cough and congestion Last Admin: 10/24/17 14:41 Dose: 10 ml Heparin Sodium (Porcine) (Heparin) 2,000 units IVP MWF [facility] Last Admin: 10/24/17 10:00 Dose: 2,000 units Hydralazine HCl (Apresoline) 100 mg PO Q8 [facility] Last Admin: 10/24/17 22:21 Dose: 100 mg Hydromorphone HCl (Dilaudid) 0.5 mg IVP Q4H PRN PRN Reason: pain Last Admin: 10/24/17 19:31 Dose: 0.5 mg Piperacillin Sod/Tazobactam Sod (Zosyn 2.25 Gm Iv Premix) 2.25 gm in 50 mls @ 100 mls/hr IVPB Q8H [facility] PRN Reason: Protocol Last Admin: 10/24/17 17:35 Dose: 100 mls/hr Sodium Chloride (Sodium Chloride 0.9%) 500 mls @ 1,000 mls/hr IV .Q30M ONE Stop: 10/25/17 00:06 Insulin Aspart (Novolog) 0 unit SC ACHS [facility] PRN Reason: Protocol Last Admin: 10/24/17 22:23 Dose: 2 unit Insulin Glargine (Lantus) 10 unit SC [facility] Last Admin: 10/24/17 22:22 Dose: 10 units Methylprednisolone (Solu-Medrol) 40 mg IVP Q8H [facility] Metoclopramide HCl (Reglan) 5 mg IVP ACHS [facility] Last Admin: 10/24/17 22:22 Dose: 5 mg Minoxidil (Minoxidil) 5 mg PO DAILY [facility] Last Admin: 10/24/17 14:40 Dose: 5 mg Nifedipine (Procardia Xl) 120 mg PO DAILY [facility] Last Admin: 10/24/17 14:41 Dose: 120 mg Ondansetron HCl (Zofran Inj) 4 mg IVP Q8 PRN PRN Reason: Nausea/Vomiting Pantoprazole Sodium (Protonix Ec Tab) 40 mg PO DAILY [facility] Last Admin: 10/24/17 14:40 Dose: 40 mg Rosuvastatin Calcium (Crestor) 5 mg PO HS [facility] Last Admin: 10/24/17 22:21 Dose: 5 mg Vitamin B Complex/Vit C/Folic Acid (Nephro-Anjelica) 1 tab PO 0800 [facility] Last Admin: 10/24/17 07:50 Dose: 1 tab - Labs Labs: 10/22/17 10:06 10/23/17 06:06 Assessment and Plan (1) COPD with acute exacerbation Status: Acute (2) Abdominal pain Status: Acute (3) Diabetic foot ulcer Status: Acute (4) Hypertension Status: Chronic (5) Hypertensive CKD, ESRD on dialysis Status: Chronic
[2017-10-25] MEDS ORDERED: MethylPREDNISolone 40 mg Vial IVP SCH (02:00)
[2017-10-25] MEDS: Albuterol-Ipratrop 3 mg / 0.5 (3 ml) UD INH SCH ×4 (02:37→19:19)
[2017-10-25] MEDS ORDERED: Oxycodone/Acetaminophen 5/325 mg Tab PO ONE (04:16)
[2017-10-25] MEDS ORDERED: HYDROmorphone 0.5 mg/0.5 ml ISec IVP STA (07:26)
[2017-10-25] MEDS: (Novolog) Insulin Aspart, Recombinant 100 u/ml 10 ml vial SC SCH ×4 (08:46→23:38)
[2017-10-25] MEDS: Multivitamin Vitamin B Complex (Nephro-Vite) Tab PO SCH (08:47)
[2017-10-25 09:06] LABS: TROPONIN I 0.172 ng/mL (0.00-0.120)
[2017-10-25 09:14] LABS: CK-MB 1.55 ng/mL (0.0-3.38)
[2017-10-25] MEDS: Pantoprazole 20 mg EC Tab PO SCH (09:53)
[2017-10-25] MEDS: guaiFENesin DM 200 mg-20 mg/10 ml UD PO PRN (09:54)
[2017-10-25] MEDS: MethylPREDNISolone 40 mg Vial IVP SCH ×2 (09:54→23:36)
[2017-10-25] MEDS: NIFEdipine 60 mg ER Tab PO SCH (09:54)
[2017-10-25] MEDS: HYDROmorphone 0.5 mg/0.5 ml ISec IVP PRN ×2 (12:20→20:29)
--- NOTE | 2017-10-25 15:09 | CP.PCM.PN ---
Subjective - Date & Time of Evaluation Date of Evaluation: 10/25/17 Time of Evaluation: 15:07 - Subjective Subjective: Nephrology Consultation Note: Assessment: Stable COPD exacerbation with pneumonia Acute Gastroenteritis (resolved) Missed HD with hyperkalemia Hyperglycemia Diabetic chronic Kidney Disease (E11.22) Hypertensive Chronic Kidney Disease (I12.0) End stage renal disease (N18.6) dependence on hemodialysis (Z99.2) (MWF) via AVF Anemia (D64.9), Hyperphosphatemia (E83.39), Secondary Hyperparathyroidism (E21.1 ), HTN (I12.0) ex smoker Plan: Will plan for HD today as ordered per [facility] schedule. Continue with Nephrovite 1 tab/day. low K diet d/w pt PRBC as needed for anemia. on EDMAR with dialysis as last Hb 9.4 Continue with phos binders, check phos level with next labs BP control with meds as ordered. Patient not on RAAS shay as tendency for hyperkalemia. on Hydralazine 100 mg q8, nifedipine 120 mg/day. stopped minoxidil as incident of low BP last night. Glycemic control, Dialysis consistent diet Further work up/management as per primary team Dose meds/antibiotics for ESRD status. Avoid fleets enema/magnesium based laxatives. pt on steroids and nebs for COPD exac. Pulmonary following Thanks for allowing me to participate in care of your patient. Will follow patient with you. Please call if any Qs. had d/w team Dr Aurelio Brar Office: [phone] HPI: Pt is a 42 F with hx of ESRD on hemodialysis (MWF) via AVF @ [facility] , last dialysis Sunday, chronic anemia, hyperphosphatemia, secondary hyperparathyroidism, Diabetes Mellitus, hypertension presented with complaints of feeling sick since sunday with pain abdomen, nausea/vomitting and loose stool Renal consult requested for ESRD management. also reports cough ROS: noted overnight events. BP was low overnight. pt upset due to it Cardiovascular: No chest pain. Pulmonary: feels tightness on breathing Gastrointestinal: improved abdominal pain no nausea. no further vomiting and loose stool Genitourinary: No pain while urinating. Denies blood in urine. makes small amount of urine All other negative except as mentioned in HPI Physical Examination: General Appearance: comfortable, in no acute respiratory distress, co-operative . Vitals reviewed and noted as below Head; Atraumatic, normocephalic ENT: no ulcers no thrush. Tongue is midline. Oropharynx: no rash or ulcers. EYES: Pupils are equal, round and reactive to light accommodation. Eye muscles and extraocular movement intact. Sclera is anicteric. Neck; supple no lymphadenopathy, no thyromegaly or bruit Lungs: Normal respiratory rate/effort. Breath sounds bilateral equal and clear today, air entry decreased at bases though Heart: Normal rate. s1s2 normal. No rub or gallop. Extremities: no edema. No varicose veins Neurological: Patient is alert, awake and oriented to person, place and time. No focal deficit. Strength bilateral appropriate and equal Skin: Warm and dry. Normal turgor. No rash. Palpitation: Normal elasticity for age Abdomen: Abdomen is soft. Bowel sounds +. There is mild diffuse abdominal tenderness, no guarding/rigidity or organomegaly Psych: normal insight and upset MSK: no joint tenderness or swelling. Digits and nails normal, no deformity : kidney or bladder not palpable Access: AVF Labs/imaging reviewed. Past medical history, past surgical history, family history, social history, allergy reviewed and noted as below Family Hx: no hx of CKD. Non contributory Objective - Vital Signs/Intake and Output Vital Signs (last 24 hours): Temp Pulse Resp BP Pulse Ox 98 F 90 20 126/63 98 10/25/17 09:20 10/25/17 14:43 10/25/17 09:20 10/25/17 14:43 10/25/17 09:20 - Medications Medications: Current Medications Acetaminophen (Tylenol 325mg Tab) 650 mg PO Q4 PRN PRN Reason: Fever >100.4 F Last Admin: 10/25/17 02:14 Dose: 650 mg Albuterol/Ipratropium (Duoneb 3 Mg/0.5 Mg (3 Ml) Ud) 3 ml INH RQ6 [facility] Last Admin: 10/25/17 13:44 Dose: 3 ml Aspirin (Ecotrin) 81 mg PO DAILY [facility] Last Admin: 10/25/17 09:53 Dose: 81 mg Calcium Acetate (Phoslo) 667 mg PO TIDCC [facility] Last Admin: 10/25/17 12:20 Dose: 667 mg Carvedilol (Coreg) 12.5 mg PO BID [facility] Last Admin: 10/25/17 09:53 Dose: 12.5 mg Clonidine HCl (Catapres) 0.2 mg PO Q8 [facility] Last Admin: 10/25/17 14:58 Dose: 0.2 mg Diphenhydramine HCl (Benadryl) 25 mg PO Q8 PRN PRN Reason: Itching / Pruritus Last Admin: 10/17/17 21:53 Dose: 25 mg Epoetin Cornelius (Procrit) 4,000 unit IV MWF [facility] Last Admin: 10/24/17 11:35 Dose: 4,000 unit Guaifenesin/Dextromethorphan (Robitussin Dm) 10 ml PO Q4H PRN PRN Reason: Cough and congestion Last Admin: 10/25/17 09:54 Dose: 10 ml Hydralazine HCl (Apresoline) 100 mg PO Q8 [facility] Last Admin: 10/25/17 14:46 Dose: 100 mg Hydromorphone HCl (Dilaudid) 0.5 mg IVP Q4H PRN PRN Reason: pain Last Admin: 10/24/17 19:31 Dose: 0.5 mg Hydromorphone HCl (Dilaudid) 0.5 mg IVP Q6H PRN PRN Reason: Pain, severe (8-10) Last Admin: 10/25/17 12:20 Dose: 0.5 mg Insulin Aspart (Novolog) 0 unit SC [facility] PRN Reason: Protocol Last Admin: 10/25/17 12:19 Dose: 5 unit Insulin Glargine (Lantus) 10 unit SC [facility] Last Admin: 10/24/17 22:22 Dose: 10 units Methylprednisolone (Solu-Medrol) 40 mg IVP Q12 [facility] Last Admin: 10/25/17 09:54 Dose: 40 mg Metoclopramide HCl (Reglan) 5 mg PO ACHS [facility] Last Admin: 10/25/17 12:21 Dose: 5 mg Nifedipine (Procardia Xl) 120 mg PO DAILY [facility] Last Admin: 10/25/17 09:54 Dose: 120 mg Ondansetron HCl (Zofran Inj) 4 mg IVP Q8 PRN PRN Reason: Nausea/Vomiting Pantoprazole Sodium (Protonix Ec Tab) 20 mg PO DAILY [facility] Last Admin: 10/25/17 09:53 Dose: 20 mg Rosuvastatin Calcium (Crestor) 5 mg PO HS [facility] Last Admin: 10/24/17 22:21 Dose: 5 mg Vitamin B Complex/Vit C/Folic Acid (Nephro-Anjelica) 1 tab PO 0800 [facility] Last Admin: 10/25/17 08:47 Dose: Not Given - Labs Labs: 10/22/17 10:06 10/23/17 06:06
[2017-10-25 16:19] LABS: CK-MB 2.27 ng/mL (0.0-3.38); TROPONIN I 0.323 ng/mL (0.00-0.120)
--- NOTE | 2017-10-25 17:22 | CP.PCM.PN ---
Subjective - Date & Time of Evaluation Date of Evaluation: 10/25/17 Time of Evaluation: 10:40 - Subjective Subjective: The patient seen and examined Patient states last night her blood pressure dropped associated with back pain and weakness patient states cough and shortness of breath is much better Objective - Vital Signs/Intake and Output Vital Signs (last 24 hours): Temp Pulse Resp BP Pulse Ox 98.1 F 86 20 98/50 L 99 10/25/17 15:00 10/25/17 15:00 10/25/17 15:00 10/25/17 15:00 10/25/17 15:00 Intake and Output: 10/25/17 10/25/17 06:59 18:59 Intake Total 350 Balance 350 - Medications Medications: Current Medications Acetaminophen (Tylenol 325mg Tab) 650 mg PO Q4 PRN PRN Reason: Fever >100.4 F Last Admin: 10/25/17 02:14 Dose: 650 mg Albuterol/Ipratropium (Duoneb 3 Mg/0.5 Mg (3 Ml) Ud) 3 ml INH RQ6 [facility] Last Admin: 10/25/17 13:44 Dose: 3 ml Aspirin (Ecotrin) 81 mg PO DAILY [facility] Last Admin: 10/25/17 09:53 Dose: 81 mg Calcium Acetate (Phoslo) 667 mg PO TIDCC [facility] Last Admin: 10/25/17 12:20 Dose: 667 mg Carvedilol (Coreg) 12.5 mg PO BID [facility] Last Admin: 10/25/17 09:53 Dose: 12.5 mg Clonidine HCl (Catapres) 0.2 mg PO Q8 [facility] Last Admin: 10/25/17 14:58 Dose: 0.2 mg Diphenhydramine HCl (Benadryl) 25 mg PO Q8 PRN PRN Reason: Itching / Pruritus Last Admin: 10/17/17 21:53 Dose: 25 mg Epoetin Cornelius (Procrit) 4,000 unit IV MWF [facility] Last Admin: 10/24/17 11:35 Dose: 4,000 unit Guaifenesin/Dextromethorphan (Robitussin Dm) 10 ml PO Q4H PRN PRN Reason: Cough and congestion Last Admin: 10/25/17 09:54 Dose: 10 ml Heparin Sodium (Porcine) (Heparin) 5,000 units SC Q8 [facility] Hydralazine HCl (Apresoline) 100 mg PO Q8 [facility] Last Admin: 10/25/17 14:46 Dose: 100 mg Hydromorphone HCl (Dilaudid) 0.5 mg IVP Q4H PRN PRN Reason: pain Last Admin: 10/24/17 19:31 Dose: 0.5 mg Hydromorphone HCl (Dilaudid) 0.5 mg IVP Q6H PRN PRN Reason: Pain, severe (8-10) Last Admin: 10/25/17 12:20 Dose: 0.5 mg Piperacillin Sod/Tazobactam Sod (Zosyn 2.25 Gm Iv Premix) 2.25 gm in 50 mls @ 100 mls/hr IVPB Q8H [facility] PRN Reason: Protocol Insulin Aspart (Novolog) 0 unit SC [facility] PRN Reason: Protocol Last Admin: 10/25/17 12:19 Dose: 5 unit Insulin Glargine (Lantus) 10 unit SC [facility] Last Admin: 10/24/17 22:22 Dose: 10 units Methylprednisolone (Solu-Medrol) 40 mg IVP Q12 [facility] Last Admin: 10/25/17 09:54 Dose: 40 mg Metoclopramide HCl (Reglan) 5 mg PO [facility] Last Admin: 10/25/17 12:21 Dose: 5 mg Nifedipine (Procardia Xl) 120 mg PO DAILY [facility] Last Admin: 10/25/17 09:54 Dose: 120 mg Ondansetron HCl (Zofran Inj) 4 mg IVP Q8 PRN PRN Reason: Nausea/Vomiting Pantoprazole Sodium (Protonix Ec Tab) 20 mg PO DAILY [facility] Last Admin: 10/25/17 09:53 Dose: 20 mg Rosuvastatin Calcium (Crestor) 5 mg PO [facility] Last Admin: 10/24/17 22:21 Dose: 5 mg Vitamin B Complex/Vit C/Folic Acid (Nephro-Anjelica) 1 tab PO 0800 [facility] Last Admin: 10/25/17 08:47 Dose: Not Given - Labs Labs: 10/22/17 10:06 10/23/17 06:06 - Head Exam Head Exam: ATRAUMATIC, NORMOCEPHALIC - ENT Exam ENT Exam: Mucous Membranes Moist - Neck Exam Neck Exam: Normal Inspection - Respiratory Exam Respiratory Exam: Clear to Ausculation Bilateral - Cardiovascular Exam Cardiovascular Exam: REGULAR RHYTHM - GI/Abdominal Exam GI & Abdominal Exam: Soft, Normal Bowel Sounds Assessment and Plan (1) COPD with acute exacerbation Assessment & Plan: antibiotic restarted, ccontinue nebulizer treatment 2 calcitonin level Seen by cardiology for elevated troponins Continue hemodialysis Status: Acute (2) ESRD (end stage renal disease) Status: Acute
[2017-10-25] MEDS ORDERED: Iodixanol 320 MG/ML 100 ML BOTTLE IV ONE ×2 (17:26→17:36)
[2017-10-25] MEDS: Piperacill/Tazo 2.25gm in Dex 2.25 GM/50 ML BAG IVPB SCH (17:49)
--- NOTE | 2017-10-25 18:29 | CT ---
PROCEDURE: CT Chest with contrast (Pulmonary Angiogram) HISTORY: r/o PE COMPARISON: CT chest dated 10/23/2017. TECHNIQUE: Axial computed tomography images were obtained of the chest in the pulmonary arterial phase of enhancement. Coronal and sagittal reformatted images were created and reviewed. Intravenous contrast dose: 100 mL Visipaque 320 Radiation dose: Total exam DLP = 595.1 mGy-cm. This CT exam was performed using one or more of the following dose reduction techniques: Automated exposure control, adjustment of the mA and/or kV according to patient size, and/or use of iterative reconstruction technique. FINDINGS: PULMONARY ARTERIES: Suboptimal opacification. No central pulmonary embolism. AORTA: No acute findings. No thoracic aortic aneurysm. LUNGS: New mosaic pattern of ground-glass attenuation throughout both lungs, likely related to air trapping. Mild bilateral lower lobe infiltrates with associated linear atelectasis are similar. PLEURAL SPACES: Unremarkable. No effusion or pneumothorax. HEART: Unremarkable. No cardiomegaly. No significant pericardial effusion. LYMPH NODES: No lymphadenopathy. BONES, CHEST WALL: Stable left axillary adenopathy. No fracture or destructive lesion OTHER FINDINGS: Unremarkable. IMPRESSION: Suboptimal opacification of the pulmonary artery. No central pulmonary embolism. New mosaic pattern of ground-glass attenuation throughout both lungs, likely related to air trapping. Similar mild bilateral lower lobe infiltrates with associated atelectasis. Stable left axillary adenopathy.
[2017-10-25] MEDS: (Lantus) Insulin Glargine, Recombinant SC SCH (23:38)
[2017-10-26] MEDS: Albuterol-Ipratrop 3 mg / 0.5 (3 ml) UD INH SCH ×3 (01:22→20:44)
[2017-10-26] MEDS: Piperacill/Tazo 2.25gm in Dex 2.25 GM/50 ML BAG IVPB SCH ×3 (01:24→18:00)
--- NOTE | 2017-10-26 01:54 | CON ---
DATE: 10/25/2017CARDIOLOGY CONSULT REASON FOR CONSULTATION: Hypotension and elevated troponin. HISTORY OF PRESENT ILLNESS: The patient is 42-year-old female who has a history of end-stage renal disease, on hemodialysis, for the past 4 to 5 years, with hemodialysis Sunday, Sunday, and Sunday. The patient was initially admitted because of abdominal pain, nausea and vomiting. Subsequently, the patient became hypotensive and was experiencing upper back pain, and the patient's troponin was reported to be borderline elevated. The patient denies any retrosternal chest pain and is unaware of any history of heart attack in the past. The patient had a ventilation-perfusion scan in October of last year that was low probability for pulmonary embolism. SOCIAL HISTORY Nonsmoker, nondrinker. MEDICATIONS: Hydralazine 100 mg p.o. every 8 hours; clonidine 0.2 mg every 8 hours; Coreg 12.5 mg twice a day; Crestor 5 mg once a day; albuterol inhaler every 6 hours; aspirin 81 mg once a day; Lantus insulin subcutaneously at bedtime, Nephro-Anjelica 1 tablet once a day; PhosLo 1 tablet t.i.d.; Procardia XL 120 mg once a day; Procrit 4000 units intravenously Sunday, Sunday and Sunday; Protonix 20 mg once a day; Reglan 5 mg p.o. a.c. and at bedtime; Solu-Medrol 40 mg intravenously every 12 hours; Zofran 4 mg intravenously every 8 hours p.r.n. PAST MEDICAL HISTORY: Hypertension; diabetes mellitus; end-stage renal disease, on hemodialysis; history of chronic obstructive lung disease. REVIEW OF SYSTEMS: No fever or chills. No dizziness or syncope. PHYSICAL EXAMINATION: GENERAL: The patient is a middle-aged male who does not appear to be in acute distress. VITAL SIGNS: The lowest reported blood pressure yesterday was 76/47 with heart rate of 63, and temperature 98.2. All today's blood pressures are in the normal range except at 9:20 a.m., blood pressure was 91/43. HEENT: Pale conjunctivae. CHEST: Minimal basilar rhonchi. HEART: S1, S2, regular and distant. ABDOMEN: Soft. EXTREMITIES: No edema. LABORATORY DATA: Today's hematocrit 9.5 and 28.5, white count 18.4, platelet count 211,000. The most recent SMA-7 from 2 days ago, sodium 134, potassium 5.4, chloride 92, CO2 of 26, glucose 487, BUN 76. Creatinine 7.2. Troponin is 0.72. Echocardiographic study performed in August of last year revealed [id number]-[id number] concentric LVH with normal systolic function with elevated left ventricular filling pressures and moderate dilated left atrium. EKG revealed sinus rhythm at rate of 84, left axis deviation. Chest CT scan without contrast revealed limited bilateral lower lobe infiltrate, minimally affecting the right middle lobe as well. Likely concomitant dependent atelectasis bilaterally as well. Apparent resolution of prior anasarca pattern. Likely resolution of prominent left breast mastitis. ASSESSMENT: 1. Chronic obstructive pulmonary disease and pneumonia. 2. End-stage renal disease, on hemodialysis. 3. Back pain with borderline troponin elevation. 4. Status post hypertension. 5. Uncontrolled diabetes mellitus. 6. Rule out underlying sepsis. RECOMMENDATIONS: Hold current antihypertensive agents. Obtain a chest CT angio to rule out pulmonary embolism. My own review of the CT scan that was done without contrast did not suggest the presence of aortic aneurysm. However, that will be further evaluated on the contrast study. Obtain two sets of blood cultures. It is worth noting that at the time of my evaluation of the patient, both the patient and the patient's at the bedside were very angry to the extent of agitation and blaming the hypotension on some unknown medication that was given to the patient, and requesting to eliminate some doctors from managing the patient. Olayinka Brown MD
[2017-10-26] MEDS ORDERED: (Novolin R) Insulin Human Regular 100 units/ml vial SC ONE (02:35)
[2017-10-26] MEDS: HYDROmorphone 0.5 mg/0.5 ml ISec IVP PRN ×3 (02:50→20:04)
[2017-10-26] MEDS ORDERED: (Novolin R) Insulin Human Regular 100 units/ml vial ONE (07:15)
[2017-10-26] MEDS ORDERED: (Lantus) Insulin Glargine, Recombinant SC ONE (08:30)
[2017-10-26] MEDS: Multivitamin Vitamin B Complex (Nephro-Vite) Tab PO SCH (08:39)
[2017-10-26] MEDS: (Novolog) Insulin Aspart, Recombinant 100 u/ml 10 ml vial SC SCH ×4 (08:40→22:29)
[2017-10-26] MEDS: Pantoprazole 20 mg EC Tab PO SCH ×2 (10:00→14:08)
[2017-10-26] MEDS: MethylPREDNISolone 40 mg Vial IVP SCH ×2 (10:00→21:22)
[2017-10-26 10:36] LABS: BASO % 0.2 % (0.0-2.0); HEMOGLOBIN 9.1 g/dL (11.0-16.0); LYMPH % 4.6 % (20.0-40.0); MEAN CELL VOLUME 100.5 fL (81.0-99.0); MEAN CORPUSCULAR HEMOGLOBIN 33.5 pg (27.0-31.0); MEAN CORPUSCULAR HGB CONC 33.3 g/dL (33.0-37.0); MEAN PLATELET VOLUME 9.3 fL (7.2-11.7); MONO # 1.1 K/uL (0.0-0.8); MONO % 5.1 % (0.0-10.0); NEUT # 18.7 K/uL (1.8-7.0); NEUT % 90.1 % (50.0-75.0); NRBC % 0.2 % (0.0-2.0); PLATELET COUNT 222 K/uL (130-400); RBC 2.72 Mil/uL (3.80-5.20); RED CELL DISTRIBUTION WIDTH 16.2 % (11.5-14.5); WHITE BLOOD COUNT 20.8 K/uL (4.8-10.8)
--- NOTE | 2017-10-26 10:44 | CP.PCM.PN ---
Subjective - Date & Time of Evaluation Date of Evaluation: 10/25/17 Time of Evaluation: 19:45 - Subjective Subjective: The patient seen and examined Objective - Vital Signs/Intake and Output Vital Signs (last 24 hours): Temp Pulse Resp BP Pulse Ox 97.6 F 84 16 115/52 L 100 10/26/17 10:16 10/26/17 10:16 10/26/17 10:16 10/26/17 10:16 10/26/17 08:35 - Medications Medications: Current Medications Acetaminophen (Tylenol 325mg Tab) 650 mg PO Q4 PRN PRN Reason: Fever >100.4 F Last Admin: 10/25/17 02:14 Dose: 650 mg Albuterol/Ipratropium (Duoneb 3 Mg/0.5 Mg (3 Ml) Ud) 3 ml INH RQ6 [facility] Last Admin: 10/26/17 08:07 Dose: 3 ml Aspirin (Ecotrin) 81 mg PO DAILY [facility] Last Admin: 10/25/17 09:53 Dose: 81 mg Calcium Acetate (Phoslo) 667 mg PO TIDCC [facility] Last Admin: 10/26/17 08:39 Dose: 667 mg Carvedilol (Coreg) 12.5 mg PO BID [facility] Last Admin: 10/25/17 17:34 Dose: Not Given Clonidine HCl (Catapres) 0.2 mg PO Q12 [facility] Last Admin: 10/25/17 23:40 Dose: 0.2 mg Diphenhydramine HCl (Benadryl) 25 mg PO Q8 PRN PRN Reason: Itching / Pruritus Last Admin: 10/17/17 21:53 Dose: 25 mg Epoetin Cornelius (Procrit) 4,000 unit IV MWF [facility] Last Admin: 10/24/17 11:35 Dose: 4,000 unit Guaifenesin/Dextromethorphan (Robitussin Dm) 10 ml PO Q4H PRN PRN Reason: Cough and congestion Last Admin: 10/25/17 09:54 Dose: 10 ml Heparin Sodium (Porcine) (Heparin) 5,000 units SC Q8 [facility] Last Admin: 10/26/17 06:16 Dose: 5,000 units Hydromorphone HCl (Dilaudid) 0.5 mg IVP Q4H PRN PRN Reason: pain Last Admin: 10/24/17 19:31 Dose: 0.5 mg Hydromorphone HCl (Dilaudid) 0.5 mg IVP Q6H PRN PRN Reason: Pain, severe (8-10) Last Admin: 10/26/17 02:50 Dose: 0.5 mg Piperacillin Sod/Tazobactam Sod (Zosyn 2.25 Gm Iv Premix) 2.25 gm in 50 mls @ 100 mls/hr IVPB Q8H [facility] PRN Reason: Protocol Last Admin: 10/26/17 01:24 Dose: 100 mls/hr Insulin Aspart (Novolog) 0 unit SC [facility] PRN Reason: Protocol Last Admin: 10/26/17 08:40 Dose: Not Given Insulin Glargine (Lantus) 10 unit SC [facility] Last Admin: 10/25/17 23:38 Dose: 10 units Methylprednisolone (Solu-Medrol) 40 mg IVP Q12 [facility] Last Admin: 10/25/17 23:36 Dose: 40 mg Metoclopramide HCl (Reglan) 5 mg PO [facility] Last Admin: 10/26/17 08:39 Dose: 5 mg Ondansetron HCl (Zofran Inj) 4 mg IVP Q8 PRN PRN Reason: Nausea/Vomiting Pantoprazole Sodium (Protonix Ec Tab) 20 mg PO DAILY [facility] Last Admin: 10/25/17 09:53 Dose: 20 mg Rosuvastatin Calcium (Crestor) 10 mg PO [facility] Last Admin: 10/25/17 23:39 Dose: 10 mg Vitamin B Complex/Vit C/Folic Acid (Nephro-Anjelica) 1 tab PO 0800 [facility] Last Admin: 10/26/17 08:39 Dose: 1 tab - Labs Labs: 10/26/17 10:11 10/23/17 06:06 APTT 33 SECONDS (21-34) 10/26/17 10:11 Assessment and Plan (1) COPD with acute exacerbation Status: Acute (2) Abdominal pain Status: Acute (3) Diabetic foot ulcer Status: Acute (4) Hypertension Status: Chronic (5) Hypertensive CKD, ESRD on dialysis Status: Chronic
[2017-10-26 11:04] LABS: ALB/GLOB RATIO 1.2 (1.0-2.1); ALBUMIN 3.6 g/dL (3.5-5.0); CALCIUM 7.9 mg/dl (8.6-10.4)
[2017-10-26 11:16] LABS: CK-MB 2.58 ng/mL (0.0-3.38); TROPONIN I 0.537 ng/mL (0.00-0.120)
[2017-10-26 11:18] LABS: ANISOCYTOSIS SLIGHT; BANDS 2 % (0-2); LYMPHOCYTE 6 % (20-40); METAMYELOCYTE 1 % (0-0); MONOCYTE 3 % (0-10); MYELOCYTE 1 % (0-0); NEUTROPHIL 87 % (50-75); PLATELET ESTIMATE NORMAL (NORMAL); TOTAL CELLS COUNTED 100
[2017-10-26 11:19] LABS: LARGE PLATELETS PRESENT
[2017-10-26] MEDS: EPOETIN ALFA 4,000 UNIT/ML ML Dialysis IV SCH (13:16)
--- NOTE | 2017-10-26 14:42 | CP.PCM.PN ---
Subjective - Date & Time of Evaluation Date of Evaluation: 10/26/17 Time of Evaluation: 14:40 - Subjective Subjective: Nephrology Consultation Note: Assessment: Stable COPD exacerbation with pneumonia Acute Gastroenteritis (resolved) Missed HD with hyperkalemia Hyperglycemia Diabetic chronic Kidney Disease (E11.22) Hypertensive Chronic Kidney Disease (I12.0) End stage renal disease (N18.6) dependence on hemodialysis (Z99.2) (MWF) via [facility] Anemia (D64.9), Hyperphosphatemia (E83.39), Secondary Hyperparathyroidism (E21.1 ), HTN (I12.0) ex smoker Plan: Will plan for HD today as ordered per [facility] schedule. Continue with Nephrovite 1 tab/day. low K diet d/w pt PRBC as needed for anemia. on EDMAR with dialysis as last Hb 9.4 Continue with phos binders BP control with meds as ordered. Patient not on RAAS shay as tendency for hyperkalemia. stopped Hydralazine/nifedipine due to low BP. clonidine made prn. only on coreg for now Glycemic control, Dialysis consistent diet Further work up/management as per primary team Dose meds/antibiotics for ESRD status. Avoid fleets enema/magnesium based laxatives. pt on steroids and nebs for COPD exac. Pulmonary and cardiology following Thanks for allowing me to participate in care of your patient. Will follow patient with you. Please call if any Qs. had d/w team Dr Aurelio Brar Office: [phone] HPI: Pt is a 42 F with hx of ESRD on hemodialysis (MWF) via [facility] @ [facility] , last dialysis Sunday, chronic anemia, hyperphosphatemia, secondary hyperparathyroidism, Diabetes Mellitus, hypertension presented with complaints of feeling sick since sunday with pain abdomen, nausea/vomitting and loose stool Renal consult requested for ESRD management. also reports cough ROS: feels the same, no new complaints. Physical Examination: General Appearance: comfortable, in no acute respiratory distress, co-operative . Vitals reviewed and noted as below Head; Atraumatic, normocephalic ENT: no ulcers no thrush. Tongue is midline. Oropharynx: no rash or ulcers. EYES: Pupils are equal, round and reactive to light accommodation. Eye muscles and extraocular movement intact. Sclera is anicteric. Neck; supple no lymphadenopathy, no thyromegaly or bruit Lungs: Normal respiratory rate/effort. Breath sounds bilateral equal and clear today, air entry decreased at bases though Heart: Normal rate. s1s2 normal. No rub or gallop. Extremities: no edema. No varicose veins Neurological: Patient is alert, awake and oriented to person, place and time. No focal deficit. Strength bilateral appropriate and equal Skin: Warm and dry. Normal turgor. No rash. Palpitation: Normal elasticity for age Abdomen: Abdomen is soft. Bowel sounds +. There is mild diffuse abdominal tenderness, no guarding/rigidity or organomegaly Psych: normal insight and flat affect/mood MSK: no joint tenderness or swelling. Digits and nails normal, no deformity : kidney or bladder not palpable Access: AVF Labs/imaging reviewed. Past medical history, past surgical history, family history, social history, allergy reviewed and noted as below Family Hx: no hx of CKD. Non contributory Objective - Vital Signs/Intake and Output Vital Signs (last 24 hours): Temp Pulse Resp BP Pulse Ox 99.2 F 97 H 18 163/86 H 98 10/26/17 14:33 10/26/17 14:33 10/26/17 14:33 10/26/17 14:33 10/26/17 14:33 - Medications Medications: Current Medications Acetaminophen (Tylenol 325mg Tab) 650 mg PO Q4 PRN PRN Reason: Fever >100.4 F Last Admin: 10/25/17 02:14 Dose: 650 mg Albuterol/Ipratropium (Duoneb 3 Mg/0.5 Mg (3 Ml) Ud) 3 ml INH RQ6 [facility] Last Admin: 10/26/17 08:07 Dose: 3 ml Aspirin (Ecotrin) 81 mg PO DAILY [facility] Last Admin: 10/26/17 14:08 Dose: 81 mg Calcium Acetate (Phoslo) 667 mg PO TIDCC [facility] Last Admin: 10/26/17 12:00 Dose: Not Given Carvedilol (Coreg) 12.5 mg PO BID [facility] Last Admin: 10/26/17 10:00 Dose: Not Given Clonidine HCl (Catapres) 0.2 mg PO Q12 PRN PRN Reason: htn Diphenhydramine HCl (Benadryl) 25 mg PO Q8 PRN PRN Reason: Itching / Pruritus Last Admin: 10/17/17 21:53 Dose: 25 mg Epoetin Cornelius (Procrit) 8,000 unit IV MWF [facility] Guaifenesin/Dextromethorphan (Robitussin Dm) 10 ml PO Q4H PRN PRN Reason: Cough and congestion Last Admin: 10/25/17 09:54 Dose: 10 ml Heparin Sodium (Porcine) (Heparin) 5,000 units SC Q8 [facility] Last Admin: 10/26/17 14:08 Dose: 5,000 units Hydromorphone HCl (Dilaudid) 0.5 mg IVP Q4H PRN PRN Reason: pain Last Admin: 10/24/17 19:31 Dose: 0.5 mg Hydromorphone HCl (Dilaudid) 0.5 mg IVP Q6H PRN PRN Reason: Pain, severe (8-10) Last Admin: 10/26/17 13:17 Dose: 0.5 mg Piperacillin Sod/Tazobactam Sod (Zosyn 2.25 Gm Iv Premix) 2.25 gm in 50 mls @ 100 mls/hr IVPB Q8H [facility] PRN Reason: Protocol Last Admin: 10/26/17 10:00 Dose: Not Given Insulin Aspart (Novolog) 0 unit SC [facility] PRN Reason: Protocol Last Admin: 10/26/17 11:30 Dose: Not Given Insulin Glargine (Lantus) 10 unit SC [facility] Last Admin: 10/25/17 23:38 Dose: 10 units Methylprednisolone (Solu-Medrol) 40 mg IVP Q12 [facility] Last Admin: 10/26/17 10:00 Dose: Not Given Metoclopramide HCl (Reglan) 5 mg PO [facility] Last Admin: 10/26/17 11:30 Dose: Not Given Ondansetron HCl (Zofran Inj) 4 mg IVP Q8 PRN PRN Reason: Nausea/Vomiting Pantoprazole Sodium (Protonix Ec Tab) 20 mg PO DAILY [facility] Last Admin: 10/26/17 14:08 Dose: 20 mg Rosuvastatin Calcium (Crestor) 10 mg PO [facility] Last Admin: 10/25/17 23:39 Dose: 10 mg Vitamin B Complex/Vit C/Folic Acid (Nephro-Anjelica) 1 tab PO 0800 [facility] Last Admin: 10/26/17 08:39 Dose: 1 tab - Labs Labs: 10/26/17 10:11 10/26/17 10:18 APTT 33 SECONDS (21-34) 10/26/17 10:11
--- NOTE | 2017-10-26 18:13 | CP.PCM.PN ---
Subjective - Date & Time of Evaluation Date of Evaluation: 10/26/17 Time of Evaluation: 19:00 - Subjective Subjective: pt seen and examined at bedside Objective - Vital Signs/Intake and Output Vital Signs (last 24 hours): Temp Pulse Resp BP Pulse Ox 97.9 F 92 H 20 112/70 96 10/26/17 15:00 10/26/17 15:00 10/26/17 15:00 10/26/17 17:49 10/26/17 15:00 - Medications Medications: Current Medications Acetaminophen (Tylenol 325mg Tab) 650 mg PO Q4 PRN PRN Reason: Fever >100.4 F Last Admin: 10/25/17 02:14 Dose: 650 mg Albuterol/Ipratropium (Duoneb 3 Mg/0.5 Mg (3 Ml) Ud) 3 ml INH RQ6 [facility] Last Admin: 10/26/17 08:07 Dose: 3 ml Aspirin (Ecotrin) 81 mg PO DAILY [facility] Last Admin: 10/26/17 14:08 Dose: 81 mg Calcium Acetate (Phoslo) 667 mg PO TIDCC [facility] Last Admin: 10/26/17 17:22 Dose: 667 mg Carvedilol (Coreg) 12.5 mg PO BID [facility] Last Admin: 10/26/17 17:49 Dose: Not Given Clonidine HCl (Catapres) 0.2 mg PO Q12 PRN PRN Reason: htn Diphenhydramine HCl (Benadryl) 25 mg PO Q8 PRN PRN Reason: Itching / Pruritus Last Admin: 10/17/17 21:53 Dose: 25 mg Epoetin Cornelius ([facility]crit) [facility] Guaifenesin/Dextromethorphan (Robitussin Dm) 10 ml PO Q4H PRN PRN Reason: Cough and congestion Last Admin: 10/25/17 09:54 Dose: 10 ml Heparin Sodium (Porcine) (Heparin) 5,000 units SC Q8 [facility] Last Admin: 10/26/17 14:08 Dose: 5,000 units Hydromorphone HCl (Dilaudid) 0.5 mg IVP Q4H PRN PRN Reason: pain Last Admin: 10/24/17 19:31 Dose: 0.5 mg Hydromorphone HCl (Dilaudid) 0.5 mg IVP Q6H PRN PRN Reason: Pain, severe (8-10) Last Admin: 10/26/17 13:17 Dose: 0.5 mg Piperacillin Sod/Tazobactam Sod (Zosyn 2.25 Gm Iv Premix) 2.25 gm in 50 mls @ 100 mls/hr IVPB Q8H [facility] PRN Reason: Protocol Last Admin: 10/26/17 18:00 Dose: 100 mls/hr Insulin Aspart (Novolog) 0 unit SC [facility] PRN Reason: Protocol Last Admin: 10/26/17 17:30 Dose: 6 unit Insulin Glargine (Lantus) 10 unit SC [facility] Last Admin: 10/25/17 23:38 Dose: 10 units Methylprednisolone (Solu-Medrol) 40 mg IVP Q12 [facility] Last Admin: 10/26/17 10:00 Dose: Not Given Metoclopramide HCl (Reglan) 5 mg PO [facility] Last Admin: 10/26/17 17:00 Dose: 5 mg Ondansetron HCl (Zofran Inj) 4 mg IVP Q8 PRN PRN Reason: Nausea/Vomiting Pantoprazole Sodium (Protonix Ec Tab) 20 mg PO DAILY [facility] Last Admin: 10/26/17 14:08 Dose: 20 mg Rosuvastatin Calcium (Crestor) 10 mg PO [facility] Last Admin: 10/25/17 23:39 Dose: 10 mg Vitamin B Complex/Vit C/Folic Acid (Nephro-Anjelica) 1 tab PO 0800 [facility] Last Admin: 10/26/17 08:39 Dose: 1 tab - Labs Labs: 10/26/17 10:11 10/26/17 10:18 APTT 33 SECONDS (21-34) 10/26/17 10:11 Assessment and Plan (1) COPD with acute exacerbation Status: Acute (2) Abdominal pain Status: Acute (3) Diabetic foot ulcer Status: Acute (4) Hypertension Status: Chronic (5) Hypertensive CKD, ESRD on dialysis Status: Chronic
--- NOTE | 2017-10-26 18:43 | PN ---
DATE: 10/26/2017 SUBJECTIVE: The patient is currently undergoing hemodialysis. She is sleepy. Denies any chest pain or back pain. She denies any shortness of breath. PHYSICAL EXAMINATION: VITAL SIGNS: Blood pressure 90/57, heart rate 84, temperature 97.6, respirations 16. HEENT: Pale conjunctivae. CHEST: Diminished breath sounds over the bases. HEART: S1 and S2 regular. ABDOMEN: Soft. EXTREMITIES: No edema. LABORATORY DATA: Hemoglobin and hematocrit 9.1 and 27.3, white count 20.8, platelet count 122,000. SMA-7 today, sodium of 129, potassium 5.8, chloride 91, CO2 of 22, glucose 419, BUN 90, creatinine 7.6. Troponin 0.537. Chest CT angio performed yesterday revealed suboptimal opacification over the pulmonary artery. No central pulmonary embolism. New mosaic pattern of ground class attenuation throughout both lungs, likely related to air trapping. Similar mild bilateral lower lobe infiltrate with associated atelectasis. Stable left axillary adenopathy. Yesterday's EKG revealed sinus rhythm with nonspecific lateral T-wave changes, heart rate is 88. ASSESSMENT: 1. Borderline troponin elevation, consider non-ST elevation myocardial infarction. 2. Chronic obstructive lung disease. 3. Consider bilateral pneumonia. 4. End-stage renal disease, on hemodialysis. 5. Uncontrolled diabetes mellitus. 6. Status post hypertensive episode. RECOMMENDATIONS: 1. Continue subcutaneous heparin 5000 units every 8 hours. Two sets of blood cultures will be taken while the patient is on hemodialysis as per the patient's request as the patient refused blood cultures yesterday. Continue IV Zosyn at 2.25 gm intravenously every 8 hours. Cardiac catheterization was recommended; however, the case will be further discussed with the patient's mother to be scheduled as early as Sunday if the patient or family agree and to be followed with hemodialysis. In the meantime, I will request venous Doppler of the lower extremities and follow up BMP after the completion of dialysis. Olayinka Brown MD
[2017-10-26] MEDS ORDERED: Vancomycin 1 gm/NS 200 ml 1 GM/200 ML BAG IVPB STA (19:27)
--- NOTE | 2017-10-26 20:33 | CP.PCM.PN ---
Subjective - Date & Time of Evaluation Date of Evaluation: 10/26/17 Time of Evaluation: 19:20 - Subjective Subjective: The patient seen and examined Sitting comfortably in no acute distress Status post hemodialysis Denies shortness of breath Afebrile Elevated pro calcitonin level On IV antibiotics Culture and sensitivity PICC line in right arm Objective - Vital Signs/Intake and Output Vital Signs (last 24 hours): Temp Pulse Resp BP Pulse Ox 97.9 F 84 20 112/70 96 10/26/17 15:00 10/26/17 15:15 10/26/17 15:00 10/26/17 17:49 10/26/17 15:00 - Medications Medications: Current Medications Acetaminophen (Tylenol 325mg Tab) 650 mg PO Q4 PRN PRN Reason: Fever >100.4 F Last Admin: 10/25/17 02:14 Dose: 650 mg Albuterol/Ipratropium (Duoneb 3 Mg/0.5 Mg (3 Ml) Ud) 3 ml INH RQ6 [facility] Last Admin: 10/26/17 08:07 Dose: 3 ml Aspirin (Ecotrin) 81 mg PO DAILY [facility] Last Admin: 10/26/17 14:08 Dose: 81 mg Calcium Acetate (Phoslo) 667 mg PO TIDCC [facility] Last Admin: 10/26/17 17:22 Dose: 667 mg Carvedilol (Coreg) 12.5 mg PO BID [facility] Last Admin: 10/26/17 17:49 Dose: Not Given Clonidine HCl (Catapres) 0.2 mg PO Q12 PRN PRN Reason: htn Diphenhydramine HCl (Benadryl) 25 mg PO Q8 PRN PRN Reason: Itching / Pruritus Last Admin: 10/17/17 21:53 Dose: 25 mg Epoetin Cornelius (Procrit) 8,000 unit IV MWF [facility] Guaifenesin/Dextromethorphan (Robitussin Dm) 10 ml PO Q4H PRN PRN Reason: Cough and congestion Last Admin: 10/25/17 09:54 Dose: 10 ml Heparin Sodium (Porcine) (Heparin) 5,000 units SC Q8 [facility] Last Admin: 10/26/17 14:08 Dose: 5,000 units Hydromorphone HCl (Dilaudid) 0.5 mg IVP Q4H PRN PRN Reason: pain Last Admin: 10/26/17 20:04 Dose: 0.5 mg Hydromorphone HCl (Dilaudid) 0.5 mg IVP Q6H PRN PRN Reason: Pain, severe (8-10) Last Admin: 10/26/17 13:17 Dose: 0.5 mg Piperacillin Sod/Tazobactam Sod (Zosyn 2.25 Gm Iv Premix) 2.25 gm in 50 mls @ 100 mls/hr IVPB Q8H [facility] PRN Reason: Protocol Last Admin: 10/26/17 18:00 Dose: 100 mls/hr Vancomycin/Sodium Chloride (Vancomycin 1 Gm/Ns 200 Ml) 1 gm in 200 mls @ 133.333 mls/hr IVPB [facility] PRN Reason: Protocol Stop: 10/26/17 20:56 Insulin Aspart (Novolog) 0 unit SC [facility] PRN Reason: Protocol Last Admin: 10/26/17 17:30 Dose: 6 unit Insulin Glargine (Lantus) 10 unit SC [facility] Last Admin: 10/25/17 23:38 Dose: 10 units Methylprednisolone (Solu-Medrol) 40 mg IVP Q12 [facility] Last Admin: 10/26/17 10:00 Dose: Not Given Metoclopramide HCl (Reglan) 5 mg PO [facility] Last Admin: 10/26/17 17:00 Dose: 5 mg Ondansetron HCl (Zofran Inj) 4 mg IVP Q8 PRN PRN Reason: Nausea/Vomiting Pantoprazole Sodium (Protonix Ec Tab) 20 mg PO DAILY [facility] Last Admin: 10/26/17 14:08 Dose: 20 mg Rosuvastatin Calcium (Crestor) 10 mg PO [facility] Last Admin: 10/25/17 23:39 Dose: 10 mg Vitamin B Complex/Vit C/Folic Acid (Nephro-Anjelica) 1 tab PO 0800 [facility] Last Admin: 10/26/17 08:39 Dose: 1 tab - Labs Labs: 10/26/17 10:11 10/26/17 10:18 APTT 33 SECONDS (21-34) 10/26/17 10:11 - Head Exam Head Exam: ATRAUMATIC, NORMOCEPHALIC - ENT Exam ENT Exam: Mucous Membranes Moist - Neck Exam Neck Exam: Normal Inspection - Respiratory Exam Respiratory Exam: Clear to Ausculation Bilateral - Cardiovascular Exam Cardiovascular Exam: REGULAR RHYTHM - GI/Abdominal Exam GI & Abdominal Exam: Soft, Normal Bowel Sounds - Extremities Exam Extremities Exam: Full ROM - Neurological Exam Neurological Exam: Alert, Oriented x3 Assessment and Plan (1) Pneumonia Assessment & Plan: being treated for pneumonia Repeat CAT scan showed no pulmonary embolism\ Patient evaluated by in home sales representative last night infectious disease evaluation Vancomycin and Zosyn Followup culture and sensitivity Taper steroids Nebulizer treatment Status: Acute (2) COPD with acute exacerbation Status: Acute (3) ESRD needing dialysis Status: Acute
--- NOTE | 2017-10-26 20:58 | CP.PCM.CON ---
History of Present Illness - History of Present Illness History of Present Illness: INFECTIOUS DISEASE CONSULT; HPI; 42-year-old female with ESRD on hemodialysis MWF, DM type II, peripheral vascular disease, depression, who presented to [facility] emergency room because off 1 week history of cough, shortness of breath. Also c/o chest pain associated with vomiting and diarrhea. As reported patient complained of dry cough with wheezing and shortness of breath. Patient was seen by pulmonary and started on steroids. Initial CAT scan of the chest without contrast on 10/23/17 showed B/L lower lobe infiltrates also affecting right middle lobe and left breast mastitis..REPEAT ANGIO CT CHEST SHOWED NO EVIDENCE OF PULMONARY EMBOLISM. LEFT AXILLARY ADENOPATHY SEEN ALSO. ALSO A PATTERN OF GROUNDGLASS ATTENUATION THROUGHOUT BOTH LUNGS CONSISTENT WITH AIR TRAPPING. BILATERAL LOWER LOBE INFILTRATES WITH ASSOCIATED ATELECTASIS.LT AXILLARY ADENOPATHY.STABLE Patient' also was noted to be hypotensive with increasing leukocytosis and was started on IV Zosyn by PMD for possible pneumonia.on 10/25/17. Today patient still hypotensive with elevated pro- calcitonin and WBC count of 20.8. Patient does have a midline. Infectious disease consultation requested by PMD for increasing leukocytosis, hypotension and pneumonia. DENIES ANY RECENT CONTACT WITH SICK OR ANY RECENT TRAVEL. PATIENT WAS GIVEN A DOSE OF iv VANCOMYCIN 1 G BY pmd POST HEMODIALYSIS TODAY PATIENT PRESENTLY DENIES ANY ABDOMINAL PAIN, DIARRHEA, NAUSEA OR VOMITING. PMH: Anemia, Depression, Diabetes, Gastritis (diabetic gastroparesis), HTN, Hypercholesterolemia, Pneumonia, End Stage Renal Disease (Dialysis M-W-F), Chronic Kidney Disease Surgical History: Cholecystectomy (2010) - [facility] Procedures BONE BIOPSY NEC (04/07/13) CATARAC PHACOEMULS/ASPIR (09/23/14) CONTRAST ARTERIOGRAM NEC (07/17/13) CONTRAST ARTERIOGRAM-LEG (04/07/13) DIALYSIS ARTERIOVENOSTOM (04/07/13) DRAINAGE OF LEFT BREAST, OPEN APPROACH (10/27/16) ESOPHAGOGASTRODUODENOSCOPY [EGD] W/CLOSED BIOPSY (09/19/13) EXCIS DEBRIDE OF WOUND, INFECT, OR BURN (07/17/13) EXCISION OF LEFT BREAST, OPEN APPROACH, DIAGNOSTIC (10/27/16) EXCISION OF STOMACH, ENDO, DIAGN (09/13/16) EXCISION OF STOMACH, PYLORUS, ENDO, DIAGN (03/14/15) EXTRACTION OF LEFT FOOT SKIN, EXTERNAL APPROACH (10/07/16) EXTRACTION OF LEFT LOWER LEG SKIN, EXTERNAL APPROACH (06/16/16) HEMODIALYSIS (01/01/15) INCIS W REM OF FORIEGN BODY OR DEV FROM SKIN & SUBCUT TISSUE (05/27/13) INDIVID PSYCHOTHERAP NEC (04/20/13) INJECT/INFUSE NEC (11/09/13) INSERT LENS AT CATAR EXT (09/23/14) INSERTION OF INFUSION DEV INTO SUP VENA CAVA, PERC APPROACH (10/27/16) INSPECTION OF UPPER INTESTINAL TRACT, ENDO (03/10/16) OCCUPATIONAL THERAPY (04/30/13) OTHER GROUP THERAPY (04/20/13) OTHER SKIN & SUBQ I D (07/17/13) PERFORMANCE OF URINARY FILTRATION, MULTIPLE (01/11/17) PERFORMANCE OF URINARY FILTRATION, SINGLE (10/04/16) PHYSICAL THERAPY NEC (04/30/13) REMOVAL OF INFUSION DEV FROM GREAT VESSEL, CHERRY PITTER APPROACH (10/16/16) REMOVAL OF INFUSION DEVICE FROM GREAT VESSEL, PERC APPROACH (10/27/16) TRANSFUSE NONAUT RED BLOOD CELLS IN PERIPH VEIN, PERC (06/10/15) ULTRASONOGRAPHY OF RIGHT AND LEFT HEART, TRANSESOPHAGEAL (06/19/15) ULTRASONOGRAPHY OF SUPERIOR VENA CAVA, GUIDANCE (10/07/16) Family History: States: Diabetes - Social History Hx Tobacco Use: No Hx Alcohol Use: No Hx Substance Use: No - Immunization History Hx Tetanus Toxoid Vaccination: Yes Hx Influenza Vaccination: Yes Hx Pneumococcal Vaccination: Yes ALLERGIES; KETOROLAC, TROMETHAMINE, MORPHINE, TRAMADOL Review of Systems - Constitutional Constitutional: absent: Chills, Fever - EENT Eyes: absent: Discharge, Floaters Nose/Mouth/Throat: absent: Mouth Lesions, Sore Throat - Cardiovascular Cardiovascular: absent: Chest Pain - Respiratory Respiratory: Cough, Chest Congestion. absent: Hemoptysis - Gastrointestinal Gastrointestinal: Nausea, Vomiting. absent: Abdominal Pain - Genitourinary Genitourinary: absent: Difficulty Urinating, Dysuria - Neurological Neurological: absent: Headaches - Hematologic/Lymphatic Hematologic: As Per HPI. absent: Easy Bleeding, Easy Bruising Past Patient History - Infectious Disease Hx of Infectious Diseases: None - Past Medical History & Family History Past Medical History?: Yes - Past Social History Smoking Status: Former Smoker - CARDIAC Hx Hypercholesterolemia: Yes Hx Hypertension: Yes - PULMONARY Hx Respiratory Disorders: Yes Hx Pneumonia: Yes - NEUROLOGICAL Hx Neurological Disorder: No - HEENT Hx HEENT Problems: Yes Hx Cataracts: Yes (09/23/14 left) - RENAL Hx Chronic Kidney Disease: Yes Hx Dialysis: Yes Date of Last Dialysis Treatment: 10/16/17 - ENDOCRINE/METABOLIC Hx Endocrine Disorders: Yes Hx Diabetes Mellitus Type 2: Yes - HEMATOLOGICAL/ONCOLOGICAL Hx Blood Disorders: Yes Hx Anemia: Yes - INTEGUMENTARY Hx Dermatological Problems: Yes Other/Comment: right great toe amputation 2009 - MUSCULOSKELETAL/RHEUMATOLOGICAL Hx Musculoskeletal Disorders: Yes Hx Falls: Yes - GASTROINTESTINAL Hx Gastrointestinal Disorders: Yes Hx Gastritis: Yes (diabetic gastroparesis) - GENITOURINARY/GYNECOLOGICAL Hx Genitourinary Disorders: Yes Other/Comment: renal failure - PSYCHIATRIC Hx Psychophysiologic Disorder: Yes Hx Depression: Yes Hx Substance Use: No - SURGICAL HISTORY Hx Surgeries: Yes Hx Cholecystectomy: Yes (2010) - ANESTHESIA Hx Anesthesia: Yes Hx Anesthesia Reactions: No Hx Malignant Hyperthermia: No Meds Allergies/Adverse Reactions: Allergies Allergy/AdvReac Type Severity Reaction Status Date / Time ketorolac tromethamine Allergy Verified 10/16/17 06:55 [From Toradol] morphine Allergy Verified 10/16/17 06:55 tramadol Allergy RASH Verified 10/16/17 06:55 - Medications Medications: Current Medications Acetaminophen (Tylenol 325mg Tab) 650 mg PO Q4 PRN PRN Reason: Fever >100.4 F Last Admin: 10/25/17 02:14 Dose: 650 mg Albuterol/Ipratropium (Duoneb 3 Mg/0.5 Mg (3 Ml) Ud) 3 ml INH RQ6 [facility] Last Admin: 10/26/17 20:44 Dose: 3 ml Aspirin (Ecotrin) 81 mg PO DAILY [facility] Last Admin: 10/26/17 14:08 Dose: 81 mg Calcium Acetate (Phoslo) 667 mg PO TIDCC [facility] Last Admin: 10/26/17 17:22 Dose: 667 mg Carvedilol (Coreg) 12.5 mg PO BID [facility] Last Admin: 10/26/17 17:49 Dose: Not Given Clonidine HCl (Catapres) 0.2 mg PO Q12 PRN PRN Reason: htn Diphenhydramine HCl (Benadryl) 25 mg PO Q8 PRN PRN Reason: Itching / Pruritus Last Admin: 10/17/17 21:53 Dose: 25 mg Epoetin Cornelius (Procrit) 8,000 unit IV MWF [facility] Guaifenesin/Dextromethorphan (Robitussin Dm) 10 ml PO Q4H PRN PRN Reason: Cough and congestion Last Admin: 10/25/17 09:54 Dose: 10 ml Heparin Sodium (Porcine) (Heparin) 5,000 units SC Q8 [facility] Last Admin: 10/26/17 14:08 Dose: 5,000 units Hydromorphone HCl (Dilaudid) 0.5 mg IVP Q4H PRN PRN Reason: pain Last Admin: 10/26/17 20:04 Dose: 0.5 mg Hydromorphone HCl (Dilaudid) 0.5 mg IVP Q6H PRN PRN Reason: Pain, severe (8-10) Last Admin: 10/26/17 13:17 Dose: 0.5 mg Piperacillin Sod/Tazobactam Sod (Zosyn 2.25 Gm Iv Premix) 2.25 gm in 50 mls @ 100 mls/hr IVPB Q8H [facility] PRN Reason: Protocol Last Admin: 10/26/17 18:00 Dose: 100 mls/hr Insulin Aspart (Novolog) [address] [facility] PRN Reason: Protocol Last Admin: 10/26/17 17:30 Dose: 6 unit Insulin Glargine (Lantus) 10 unit SC [facility] Last Admin: 10/25/17 23:38 Dose: 10 units Methylprednisolone (Solu-Medrol) 20 mg IVP Q12 [facility] Metoclopramide HCl (Reglan) 5 mg PO ACHS [facility] Last Admin: 10/26/17 17:00 Dose: 5 mg Ondansetron HCl (Zofran Inj) 4 mg IVP Q8 PRN PRN Reason: Nausea/Vomiting Pantoprazole Sodium (Protonix Ec Tab) 20 mg PO DAILY [facility] Last Admin: 10/26/17 14:08 Dose: 20 mg Rosuvastatin Calcium (Crestor) 10 mg PO HS [facility] Last Admin: 10/25/17 23:39 Dose: 10 mg Vitamin B Complex/Vit C/Folic Acid (Nephro-Anjelica) 1 tab PO 0800 [facility] Last Admin: 10/26/17 08:39 Dose: 1 tab Physical Exam - Constitutional Appears: No Acute Distress - Head Exam Head Exam: NORMAL INSPECTION - Eye Exam Eye Exam: EOMI, PERRL - ENT Exam ENT Exam: Normal Oropharynx - Neck Exam Neck exam: Positive for: Normal Inspection - Respiratory Exam Respiratory Exam: Rhonchi (bibasilar), NORMAL BREATHING PATTERN - Cardiovascular Exam Cardiovascular Exam: REGULAR RHYTHM, +S1, +S2 - GI/Abdominal Exam GI & Abdominal Exam: Normal Bowel Sounds, Soft. absent: Tenderness - Extremities Exam Extremities exam: Positive for: pedal edema (1+), pedal pulses present. Negative for: calf tenderness - Neurological Exam Neurological exam: Alert, CN II-XII Intact, Oriented x3, Reflexes Normal - Psychiatric Exam Psychiatric exam: Normal Mood Results - Vital Signs Recent Vital Signs: Last Vital Signs Temp 97.9 F 10/26/17 15:00 Pulse 84 10/26/17 15:15 Resp 20 10/26/17 15:00 BP 112/70 10/26/17 17:49 Pulse Ox 96 10/26/17 15:00 - Labs Result Diagrams: 10/26/17 10:11 10/26/17 10:18 Labs: Laboratory Results - last 24 hr 10/25/17 10/25/17 10/26/17 21:23 21:25 02:06 WBC RBC Hgb Hct MCV MCH MCHC RDW Plt Count MPV Neut % (Auto) Lymph % (Auto) [place] % (Auto) Eos % (Auto) Baso % (Auto) Neut # (Auto) Lymph # (Auto) [place] # (Auto) Eos # (Auto) Baso # (Auto) Neutrophils % (Manual) Band Neutrophils % Lymphocytes % (Manual) Monocytes % (Manual) Metamyelocytes % Myelocytes % Platelet Estimate Large Platelets Anisocytosis (manual) Macrocytosis (manual) APTT Sodium Potassium Chloride Carbon Dioxide Anion Gap BUN Creatinine Est GFR ( Amer) Est GFR (Non-Af Amer) POC Glucose (mg/dL) 473 H* 464 H* 433 H* Random Glucose Calcium Phosphorus Magnesium Total Bilirubin AST ALT Alkaline Phosphatase Total Creatine Kinase CK-MB (Mass) Troponin I Total Protein Albumin Globulin Albumin/Globulin Ratio Procalcitonin Beta HCG, Quant B-Hydroxybutyrate 10/26/17 10/26/17 10/26/17 06:30 10:11 10:11 WBC RBC Hgb Hct MCV MCH MCHC RDW Plt Count MPV Neut % (Auto) Lymph % (Auto) [place] % (Auto) Eos % (Auto) Baso % (Auto) Neut # (Auto) Lymph # (Auto) [place] # (Auto) Eos # (Auto) Baso # (Auto) Neutrophils % (Manual) Band Neutrophils % Lymphocytes % (Manual) Monocytes % (Manual) Metamyelocytes % Myelocytes % Platelet Estimate Large Platelets Anisocytosis (manual) Macrocytosis (manual) APTT Sodium Potassium Chloride Carbon Dioxide Anion Gap BUN Creatinine Est GFR ( Amer) Est GFR (Non-Af Amer) POC Glucose (mg/dL) > 500 H* Random Glucose Calcium Phosphorus Magnesium Total Bilirubin AST ALT Alkaline Phosphatase Total Creatine Kinase 58 CK-MB (Mass) 2.58 Troponin I 0.5370 H* Total Protein Albumin Globulin Albumin/Globulin Ratio Procalcitonin Beta HCG, Quant < 2.39 B-Hydroxybutyrate 10/26/17 10/26/17 10/26/17 10:11 10:11 10:11 WBC 20.8 H RBC 2.72 L Hgb 9.1 L Hct 27.3 L MCV 100.5 H MCH 33.5 H MCHC 33.3 RDW 16.2 H Plt Count 222 MPV 9.3 Neut % (Auto) 90.1 H Lymph % (Auto) 4.6 L [place] % (Auto) 5.1 Eos % (Auto) 0.0 Baso % (Auto) 0.2 Neut # (Auto) 18.7 H Lymph # (Auto) 1.0 [place] # (Auto) 1.1 H Eos # (Auto) 0.0 Baso # (Auto) 0.0 Neutrophils % (Manual) 87 H Band Neutrophils % 2 Lymphocytes % (Manual) 6 L Monocytes % (Manual) 3 Metamyelocytes % 1 H Myelocytes % 1 H Platelet Estimate Normal Large Platelets Present Anisocytosis (manual) Slight Macrocytosis (manual) Moderate APTT 33 Sodium Potassium Chloride Carbon Dioxide Anion Gap BUN Creatinine Est GFR ( Amer) Est GFR (Non-Af Amer) POC Glucose (mg/dL) Random Glucose Calcium Phosphorus Magnesium Total Bilirubin AST ALT Alkaline Phosphatase Total Creatine Kinase CK-MB (Mass) Troponin I Total Protein Albumin Globulin Albumin/Globulin Ratio Procalcitonin 1.72 H Beta HCG, Quant B-Hydroxybutyrate 10/26/17 10/26/17 10/26/17 10:18 11:19 17:27 WBC RBC Hgb Hct MCV MCH MCHC RDW Plt Count MPV Neut % (Auto) Lymph % (Auto) [place] % (Auto) Eos % (Auto) Baso % (Auto) Neut # (Auto) Lymph # (Auto) [place] # (Auto) Eos # (Auto) Baso # (Auto) Neutrophils % (Manual) Band Neutrophils % Lymphocytes % (Manual) Monocytes % (Manual) Metamyelocytes % Myelocytes % Platelet Estimate Large Platelets Anisocytosis (manual) Macrocytosis (manual) APTT Sodium 129 L Potassium 5.8 H Chloride 91 L Carbon Dioxide 22 Anion Gap 22 H BUN 90 H Creatinine 7.6 H* Est GFR ( Amer) 7 Est GFR (Non-Af Amer) 6 POC Glucose (mg/dL) 241 H 275 H Random Glucose 419 H* Calcium 7.9 L Phosphorus 3.7 Magnesium 2.2 Total Bilirubin 0.5 AST 25 ALT 30 Alkaline Phosphatase 262 H Total Creatine Kinase CK-MB (Mass) Troponin I Total Protein 6.5 Albumin 3.6 Globulin 2.9 Albumin/Globulin Ratio 1.2 Procalcitonin Beta HCG, Quant B-Hydroxybutyrate 0.10 - Imaging and Cardiology ANGIO CT CHEST Status: Report reviewed by me Additional comment: see full report Assessment & Plan (1) Sepsis associated hypotension Status: Acute (2) Pneumonia Status: Acute (3) COPD with acute exacerbation Status: Acute (4) Gastroenteritis Assessment and Plan: RESOLVED. Status: Acute (5) DM2 (diabetes mellitus, type 2) Status: Chronic (6) ESRD (end stage renal disease) Assessment and Plan: ON HD MWF. Status: Acute - Assessment and Plan (Free Text) Plan: PLAN; Pancultures esr. crp Atypical titers. MRSA screen. Induce sputum Gram stain and culture. Continue IV vancomycin 1 g post-each hemodialysis mwf x 5 doses 10/26/17. Add IV Zithromax 500 mg every 24 hourly .10/26/17 continue iv Zosyn 2.25mg iv q 8hrly 10/25/17. IV SOLUMEDROL PER PULMONARY TAPERING. f/u cbc,liver profile,in am . DC ZOFRAN IT PROLONGS QT INTERVAL WITH ZITHROMAX. CASE DISCUSSED WITH PMD AND RN [employer].
[2017-10-26] MEDS: (Lantus) Insulin Glargine, Recombinant SC SCH (22:28)
--- NOTE | 2017-10-26 22:57 | CARD ---
APPROVED REPORT EKG Measurement Heart [id number] <Conclusion> Normal sinus rhythm Possible Left atrial enlargement Left axis deviation Nonspecific ST and T wave abnormality Abnormal ECG
[2017-10-26] MEDS ORDERED: Azithromycin 500 MG in Sodium Chloride 0.9% 250 ML IVPB SCH (23:00)
[2017-10-27] MEDS: Albuterol-Ipratrop 3 mg / 0.5 (3 ml) UD INH SCH ×4 (01:03→19:47)
[2017-10-27] MEDS: Piperacill/Tazo 2.25gm in Dex 2.25 GM/50 ML BAG IVPB SCH ×3 (01:59→18:10)
[2017-10-27] MEDS: HYDROmorphone 0.5 mg/0.5 ml ISec IVP PRN ×5 (02:00→17:12)
[2017-10-27] MEDS: Multivitamin Vitamin B Complex (Nephro-Vite) Tab PO SCH (08:27)
[2017-10-27] MEDS: (Novolog) Insulin Aspart, Recombinant 100 u/ml 10 ml vial SC SCH ×5 (08:27→21:21)
[2017-10-27] MEDS: MethylPREDNISolone 40 mg Vial IVP SCH (10:49)
[2017-10-27] MEDS: Pantoprazole 20 mg EC Tab PO SCH (10:56)
--- NOTE | 2017-10-27 15:43 | CP.PCM.PN ---
Subjective - Date & Time of Evaluation Date of Evaluation: 10/27/17 Time of Evaluation: 14:00 - Subjective Subjective: Nephrology Consultation Note: Assessment: Stable COPD exacerbation with pneumonia Acute Gastroenteritis (resolved) Missed HD with hyperkalemia Hyperglycemia Diabetic chronic Kidney Disease (E11.22) Hypertensive Chronic Kidney Disease (I12.0) End stage renal disease (N18.6) dependence on hemodialysis (Z99.2) (MWF) via AVF Anemia (D64.9), Hyperphosphatemia (E83.39), Secondary Hyperparathyroidism (E21.1 ), HTN (I12.0) ex smoker Plan: HD MWF schedule. Continue with Nephrovite 1 tab/day. continue low k diet on epo, transufse per primary Continue with phos binders bp rising again - can resume ccb Dose meds/antibiotics for ESRD status. Avoid fleets enema/magnesium based laxatives. pt on steroids and nebs for COPD exac. Pulmonary and cardiology following S: seen and examined still w/ abdominal discomfort Physical Examination: General Appearance: comfortable, in no acute respiratory distress, co-operative . Vitals reviewed and noted as below Head; Atraumatic, normocephalic ENT: no ulcers no thrush. Tongue is midline. Oropharynx: no rash or ulcers. EYES: Pupils are equal, round and reactive to light accommodation. Eye muscles and extraocular movement intact. Sclera is anicteric. Neck; supple no lymphadenopathy, no thyromegaly or bruit Lungs: Normal respiratory rate/effort. Breath sounds bilateral equal and clear today, air entry decreased at bases though Heart: Normal rate. s1s2 normal. No rub or gallop. Extremities: no edema. No varicose veins Neurological: Patient is alert, awake and oriented to person, place and time. No focal deficit. Strength bilateral appropriate and equal Skin: Warm and dry. Normal turgor. No rash. Palpitation: Normal elasticity for age Abdomen: Abdomen is soft. Bowel sounds +. There is mild diffuse abdominal tenderness, no guarding/rigidity or organomegaly Psych: normal insight and flat affect/mood MSK: no joint tenderness or swelling. Digits and nails normal, no deformity : kidney or bladder not palpable Access: AVF Labs/imaging reviewed. Objective - Vital Signs/Intake and Output Vital Signs (last 24 hours): Temp Pulse Resp BP Pulse Ox 98.0 F 90 20 180/80 H 94 L 10/27/17 07:20 10/27/17 07:20 10/27/17 07:20 10/27/17 11:29 10/27/17 07:20 Intake and Output: 10/27/17 10/27/17 06:59 18:59 Intake Total 1010 Output Total 1 Balance 1009 - Medications Medications: Current Medications Acetaminophen (Tylenol 325mg Tab) 650 mg PO Q4 PRN PRN Reason: Fever >100.4 F Last Admin: 10/25/17 02:14 Dose: 650 mg Albuterol/Ipratropium (Duoneb 3 Mg/0.5 Mg (3 Ml) Ud) 3 ml INH RQ6 [facility] Last Admin: 10/27/17 14:07 Dose: 3 ml Aspirin (Ecotrin) 81 mg PO DAILY [facility] Last Admin: 10/27/17 10:56 Dose: 81 mg Calcium Acetate (Phoslo) 667 mg PO TIDCC [facility] Last Admin: 10/27/17 12:44 Dose: Not Given Carvedilol (Coreg) 12.5 mg PO BID [facility] Last Admin: 10/27/17 10:56 Dose: 12.5 mg Clonidine HCl (Catapres) 0.2 mg PO Q12 [facility] Diphenhydramine HCl (Benadryl) 25 mg PO Q8 PRN PRN Reason: Itching / Pruritus Last Admin: 10/17/17 21:53 Dose: 25 mg Epoetin Cornelius (Procrit) 8,000 unit IV MWF [facility] Guaifenesin/Dextromethorphan (Robitussin Dm) 10 ml PO Q4H PRN PRN Reason: Cough and congestion Last Admin: 10/25/17 09:54 Dose: 10 ml Heparin Sodium (Porcine) (Heparin) 5,000 units SC Q8 [facility] Last Admin: 10/27/17 13:32 Dose: 5,000 units Hydromorphone HCl (Dilaudid) 0.5 mg IVP Q4H PRN PRN Reason: pain Stop: 10/27/17 23:59 Last Admin: 10/27/17 10:47 Dose: 0.5 mg Hydromorphone HCl (Dilaudid) 0.5 mg IVP Q6H PRN PRN Reason: Pain, severe (8-10) Last Admin: 10/26/17 13:17 Dose: 0.5 mg Piperacillin Sod/Tazobactam Sod (Zosyn 2.25 Gm Iv Premix) 2.25 gm in 50 mls @ 100 mls/hr IVPB Q8H [facility] PRN Reason: Protocol Last Admin: 10/27/17 10:55 Dose: 100 mls/hr Azithromycin 500 mg/ Sodium (Chloride) 250 mls @ 250 mls/hr IVPB Q24H [facility] PRN Reason: Protocol Last Admin: 10/26/17 23:45 Dose: 250 mls/hr Vancomycin/Sodium Chloride (Vancomycin 1 Gm/Ns 200 Ml) 1 gm in 200 mls @ 133 mls/hr IVPB MWF [facility] PRN Reason: Protocol Stop: 11/07/17 10:31 Insulin Aspart (Novolog) 0 unit SC ACHS [facility] PRN Reason: Protocol Last Admin: 10/27/17 13:34 Dose: 4 unit Insulin Glargine (Lantus) 10 unit SC HS [facility] Last Admin: 10/26/17 22:28 Dose: 10 units Methylprednisolone (Solu-Medrol) 20 mg IVP Q12 [facility] Last Admin: 10/27/17 10:49 Dose: 20 mg Metoclopramide HCl (Reglan) 5 mg PO ACHS [facility] Last Admin: 10/27/17 12:44 Dose: Not Given Pantoprazole Sodium (Protonix Ec Tab) 20 mg PO DAILY [facility] Last Admin: 10/27/17 10:56 Dose: 20 mg Rosuvastatin Calcium (Crestor) 10 mg PO HS [facility] Last Admin: 10/26/17 21:24 Dose: 10 mg Vitamin B Complex/Vit C/Folic Acid (Nephro-Anjelica) 1 tab PO 0800 [facility] Last Admin: 10/27/17 08:27 Dose: 1 tab - Labs Labs: 10/26/17 10:11 10/26/17 10:18 APTT 33 SECONDS (21-34) 10/26/17 10:11
--- NOTE | 2017-10-27 20:48 | PN ---
DATE: 10/27/2017 SUBJECTIVE: The patient is experiencing generalized body pain. She did vomit last night and she is experiencing nausea, but she was able to eat part of her lunch. No retrosternal chest pain. PHYSICAL EXAMINATION: VITAL SIGNS: Blood pressure 142/84 mmHg, temperature 98, respiration 20. HEENT: Pale conjunctivae. CHEST: Clear. HEART: S1 and S2 are regular. ABDOMEN: Soft. EXTREMITIES: No edema. LABORATORY DATA: SMA-7 yesterday was ordered as per hemodialysis, but it was not done. Today's blood sugars are 234 and 225. Venous Doppler of the left lower extremity was performed, but the report is still pending. ASSESSMENT: 1. Consider non-ST elevation myocardial infarction. 2. Exacerbation of chronic obstructive lung disease. 3. Pneumonia. 4. End-stage renal disease on hemodialysis. RECOMMENDATIONS: Continue current IV vancomycin and IV Zosyn. Continue Solu-Medrol 20 mg every 12 hours, continue aspirin 81 mg once a day, subcutaneous heparin 5000 units every 8 hours. Cardiac catheterization was discussed with the patient's mother, however, she rejected the idea. In the meantime, I did reserve a spot for the patient's cardiac catheterization for Sunday [facility] incase the patient's mother changed her mind and the case was discussed with Dr. Sal Gamez the primary physician. Olayinka Brown MD MTDD
--- NOTE | 2017-10-27 21:04 | CP.PCM.PN ---
Subjective - Date & Time of Evaluation Date of Evaluation: 10/27/17 Time of Evaluation: 21:03 - Subjective Subjective: CHIEF COMPLAINTS TODAY : temp down. c/o nausea/and vomited twice this evening states its because of Antibiotics ?zithromax. ROS. HEENT : N. Resp : +ve COUGH, wheezing ,pleuritic CP ,or hemoptysis Cardio : No anginal CP, PND, orthopnea, palpitation GI : No abd.pain, n/v ,diarrhea or GI bleeding . 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 Musculoskel : No joint swelling , Derm : No rash Psych : Normal affect. Ext : No swelling ,calf pain PE. Pt. is alert awake in no distress. V.S As noted in the chart Head ,ear nose,throat and eyes : Normal. Neck : Supple with normal carotids. Lungs: RHONCHI RT SIDE Heart : S1 & S2 normal . No murmur. Abd : SOFT , MILD TENDERNESS EPIGASTRIUM ,with normal bowel sounds. Neuro : Moves all ext. with no localized deficit. Ext : No edema with intact pulses.Non tender calves Derm : No rashes or decubitus ulcer. LABS/RADIOLOGY: REFUSED BLOODWORKS TODAY ASSESSMENT SEPSIS/HYPOTENSION PNEUMONIA VOMITING ?GASTROPERESIS/GASTRITIS DM-2 ESRD ON HD MWF. /PLAN : Continue IV vancomycin 1 g post-each hemodialysis mwf x 5 doses 10/26/17. DC IV Zithromax 500 mg every 24 hourly .10/26/17 Continue iv Zosyn 2.25mg iv q 8hrly 10/25/17. IV SOLUMEDROL PER PULMONARY. CAN GIVE ZOFRAN FOR NAUSEA/ VOMITING ZITHROMAX D/JOY. 1 STAT DOSE GIVEN. CASE DISCUSSED WITH RN [employer] HE[employer] INSTALLER. Objective - Vital Signs/Intake and Output Vital Signs (last 24 hours): Temp Pulse Resp BP Pulse Ox 98.5 F 98 H 20 168/74 H 100 10/27/17 15:00 10/27/17 20:42 10/27/17 15:00 10/27/17 17:11 10/27/17 15:00 - Medications Medications: Current Medications Acetaminophen (Tylenol 325mg Tab) 650 mg PO Q4 PRN PRN Reason: Fever >100.4 F Last Admin: 10/25/17 02:14 Dose: 650 mg Albuterol/Ipratropium (Duoneb 3 Mg/0.5 Mg (3 Ml) Ud) 3 ml INH RQ6 [facility] Last Admin: 10/27/17 19:47 Dose: 3 ml Aspirin (Ecotrin) 81 mg PO DAILY [facility] Last Admin: 10/27/17 10:56 Dose: 81 mg Calcium Acetate (Phoslo) 667 mg PO TIDCC [facility] Last Admin: 10/27/17 17:06 Dose: 667 mg Carvedilol (Coreg) 12.5 mg PO BID [facility] Last Admin: 10/27/17 17:11 Dose: 12.5 mg Clonidine HCl (Catapres) 0.2 mg PO Q12 [facility] Diphenhydramine HCl (Benadryl) 25 mg PO Q8 PRN PRN Reason: Itching / Pruritus Last Admin: 10/17/17 21:53 Dose: 25 mg Epoetin Cornelius (Procrit) 8,000 unit IV [facility] Guaifenesin/Dextromethorphan (Robitussin Dm) 10 ml PO Q4H PRN PRN Reason: Cough and congestion Last Admin: 10/25/17 09:54 Dose: 10 ml Heparin Sodium (Porcine) (Heparin) 5,000 units SC Q8 [facility] Last Admin: 10/27/17 13:32 Dose: 5,000 units Hydromorphone HCl (Dilaudid) 0.5 mg IVP Q6H PRN PRN Reason: Pain, severe (8-10) Last Admin: 10/27/17 17:12 Dose: 0.5 mg Piperacillin Sod/Tazobactam Sod (Zosyn 2.25 Gm Iv Premix) 2.25 gm in 50 mls @ 100 mls/hr IVPB Q8H [facility] PRN Reason: Protocol Last Admin: 10/27/17 18:10 Dose: 100 mls/hr Vancomycin/Sodium Chloride (Vancomycin 1 Gm/Ns 200 Ml) 1 gm in 200 mls @ 133 mls/hr IVPB [facility] PRN Reason: Protocol Stop: 11/07/17 10:31 Insulin Aspart (Novolog) 0 unit SC ACHS [facility] PRN Reason: Protocol Last Admin: 10/27/17 17:06 Dose: 6 unit Insulin Glargine (Lantus) 10 unit SC [facility] Last Admin: 06/22/18 22:28 Dose: 10 units Methylprednisolone (Solu-Medrol) 20 mg IVP DAILY [facility] Metoclopramide HCl (Reglan) 5 mg PO ACHS [facility] Last Admin: 10/27/17 17:06 Dose: 5 mg Pantoprazole Sodium (Protonix Ec Tab) 20 mg PO DAILY [facility] Last Admin: 10/27/17 10:56 Dose: 20 mg Rosuvastatin Calcium (Crestor) 10 mg PO HS [facility] Last Admin: 10/26/17 21:24 Dose: 10 mg Vitamin B Complex/Vit C/Folic Acid (Nephro-Anjelica) 1 tab PO 0800 [facility] Last Admin: 10/27/17 08:27 Dose: 1 tab - Labs Labs: 10/26/17 10:11 10/26/17 10:18 APTT 33 SECONDS (21-34) 10/26/17 10:11 Assessment and Plan (1) Sepsis associated hypotension Status: Acute (2) Pneumonia Status: Acute (3) COPD with acute exacerbation Status: Acute (4) Gastroenteritis Status: Acute (5) DM2 (diabetes mellitus, type 2) Status: Chronic (6) ESRD (end stage renal disease) Status: Acute
[2017-10-27] MEDS: (Lantus) Insulin Glargine, Recombinant SC SCH (22:42)
[2017-10-28] MEDS: HYDROmorphone 0.5 mg/0.5 ml ISec IVP PRN ×5 (00:26→21:47)
[2017-10-28] MEDS: Albuterol-Ipratrop 3 mg / 0.5 (3 ml) UD INH SCH ×4 (01:31→20:03)
[2017-10-28] MEDS: Piperacill/Tazo 2.25gm in Dex 2.25 GM/50 ML BAG IVPB SCH ×3 (01:57→17:51)
[2017-10-28] MEDS: guaiFENesin DM 200 mg-20 mg/10 ml UD PO PRN (06:32)
[2017-10-28] MEDS: (Novolog) Insulin Aspart, Recombinant 100 u/ml 10 ml vial SC SCH ×4 (08:00→21:49)
[2017-10-28] MEDS: Multivitamin Vitamin B Complex (Nephro-Vite) Tab PO SCH (08:42)
[2017-10-28] MEDS: Pantoprazole 20 mg EC Tab PO SCH (09:34)
[2017-10-28] MEDS: MethylPREDNISolone 40 mg Vial IVP SCH (09:34)
[2017-10-28 11:58] LABS: BASO # 0.1 K/uL (0.0-0.2); BASO % 0.5 % (0.0-2.0); EOS # 0.5 K/uL (0.0-0.7); EOS % 2.1 % (0.0-4.0); LYMPH # 1.2 K/uL (1.0-4.3); LYMPH % 5.3 % (20.0-40.0); MEAN CELL VOLUME 100.6 fL (81.0-99.0); MEAN CORPUSCULAR HEMOGLOBIN 33.4 pg (27.0-31.0); MEAN CORPUSCULAR HGB CONC 33.2 g/dL (33.0-37.0); MONO # 0.8 K/uL (0.0-0.8); MONO % 3.8 % (0.0-10.0); NEUT # 19.3 K/uL (1.8-7.0); NEUT % 88.3 % (50.0-75.0); NRBC % 0.1 % (0.0-2.0); PLATELET COUNT 174 K/uL (130-400); WHITE BLOOD COUNT 21.9 K/uL (4.8-10.8)
[2017-10-28 12:28] LABS: ANISOCYTOSIS SLIGHT; EOSINOPHIL 2 % (0-4); LYMPHOCYTE 4 % (20-40); MONOCYTE 4 % (0-10); NEUTROPHIL 90 % (50-75); PLATELET ESTIMATE NORMAL (NORMAL); POIKILOCYTOSIS SLIGHT; POLYCHROMIC SLIGHT; TOTAL CELLS COUNTED 100
[2017-10-28 12:29] LABS: HYPOCHROMIC SLIGHT; LARGE PLATELETS PRESENT; OVALOCYTES SLIGHT
[2017-10-28 13:23] LABS: ALB/GLOB RATIO 1.2 (1.0-2.1); ALBUMIN 3.6 g/dL (3.5-5.0); BILIRUBIN,DIRECT 0.5 mg/dL (0.0-0.4); CALCIUM 7.2 mg/dl (8.6-10.4)
--- NOTE | 2017-10-28 15:25 | CP.PCM.PN ---
Subjective - Date & Time of Evaluation Date of Evaluation: 10/28/17 Time of Evaluation: 09:00 - Subjective Subjective: Nephrology Consultation Note: Assessment: Stable COPD exacerbation with pneumonia Acute Gastroenteritis (resolved) Missed HD with hyperkalemia Hyperglycemia Diabetic chronic Kidney Disease (E11.22) Hypertensive Chronic Kidney Disease (I12.0) End stage renal disease (N18.6) dependence on hemodialysis (Z99.2) (MWF) via AVF Anemia (D64.9), Hyperphosphatemia (E83.39), Secondary Hyperparathyroidism (E21.1 ), HTN (I12.0) ex smoker Plan: HD MWF schedule. Continue with Nephrovite 1 tab/day. continue low k diet, hd tomorrow should resolve it on epo, transfuse per primary Continue with phos binders bp relatively stable can start ccb if being to rise Dose meds/antibiotics for ESRD status. Avoid fleets enema/magnesium based laxatives. pt on steroids and nebs for COPD exac. Pulmonary and cardiology following S: seen and examined complains of fatigue and abdominal discomfort Physical Examination: General Appearance: comfortable, in no acute respiratory distress, co-operative . Vitals reviewed and noted as below Head; Atraumatic, normocephalic ENT: no ulcers no thrush. Tongue is midline. Oropharynx: no rash or ulcers. EYES: Pupils are equal, Sclera is anicteric. Neck; supple no lymphadenopathy, no thyromegaly or bruit Lungs: Normal respiratory rate/effort. Breath sounds bilateral equal and clear today, dec air entry at bases b/l Heart: Normal rate. s1s2 normal. No rub or gallop. Extremities: no edema. No varicose veins Neurological: Patient is alert, awake and oriented to person, place and time. No focal deficit. Skin: Warm and dry. Normal turgor. No rash. Palpitation: Normal elasticity for age Abdomen: Abdomen is soft. Bowel sounds +. There is mild diffuse abdominal tenderness, no guarding/rigidity or organomegaly Psych: normal insight and flat affect/mood MSK: no joint tenderness or swelling. Digits and nails normal, no deformity : kidney or bladder not palpable Access: AVF Objective - Vital Signs/Intake and Output Vital Signs (last 24 hours): Temp Pulse Resp BP Pulse Ox 99.3 F 93 H 18 145/73 96 10/28/17 13:48 06/24/18 07:30 10/28/17 07:30 10/28/17 13:20 10/28/17 07:30 Intake and Output: 10/28/17 10/28/17 06:59 18:59 Intake Total 620 Output Total 400 Balance 220 - Medications Medications: Current Medications Acetaminophen (Tylenol 325mg Tab) 650 mg PO Q4 PRN PRN Reason: Fever >100.4 F Last Admin: 10/25/17 02:14 Dose: 650 mg Albuterol/Ipratropium (Duoneb 3 Mg/0.5 Mg (3 Ml) Ud) 3 ml INH RQ6 [facility] Last Admin: 10/28/17 15:00 Dose: 3 ml Aspirin (Ecotrin) 81 mg PO DAILY [facility] Last Admin: 10/28/17 09:34 Dose: 81 mg Calcium Acetate (Phoslo) 667 mg PO TIDCC [facility] Last Admin: 10/28/17 12:47 Dose: 667 mg Carvedilol (Coreg) 12.5 mg PO BID [facility] Last Admin: 10/28/17 09:34 Dose: 12.5 mg Clonidine HCl (Catapres) 0.3 mg PO Q8 [facility] Last Admin: 10/28/17 13:22 Dose: Not Given Diphenhydramine HCl (Benadryl) 25 mg PO Q8 PRN PRN Reason: Itching / Pruritus Last Admin: 10/17/17 21:53 Dose: 25 mg Epoetin Cornelius (Procrit) 8,000 unit IV MWF [facility] Guaifenesin/Dextromethorphan (Robitussin Dm) 10 ml PO Q4H PRN PRN Reason: Cough and congestion Last Admin: 10/25/17 09:54 Dose: 10 ml Heparin Sodium (Porcine) (Heparin) 5,000 units SC Q8 [facility] Last Admin: 10/28/17 13:24 Dose: 5,000 units Hydralazine HCl (Apresoline) 10 mg IVP Q6H PRN PRN Reason: SBP > 180 Hydromorphone HCl (Dilaudid) 0.5 mg IVP Q4H PRN PRN Reason: Pain, severe (8-10) Last Admin: 10/28/17 14:55 Dose: 0.5 mg Piperacillin Sod/Tazobactam Sod (Zosyn 2.25 Gm Iv Premix) 2.25 gm in 50 mls @ 100 mls/hr IVPB Q8H [facility] PRN Reason: Protocol Last Admin: 10/28/17 10:48 Dose: 100 mls/hr Vancomycin/Sodium Chloride (Vancomycin 1 Gm/Ns 200 Ml) 1 gm in 200 mls @ 133 mls/hr IVPB MWF [facility] PRN Reason: Protocol Stop: 11/07/17 10:31 Insulin Aspart (Novolog) 0 unit SC [facility] PRN Reason: Protocol Last Admin: 10/28/17 12:45 Dose: 2 unit Insulin Glargine (Lantus) 10 unit SC [facility] Last Admin: 10/27/17 22:42 Dose: Not Given Methylprednisolone (Solu-Medrol) 20 mg IVP DAILY [facility] Last Admin: 10/28/17 09:34 Dose: 20 mg Metoclopramide HCl (Reglan) 5 mg PO [facility] Last Admin: 10/28/17 11:30 Dose: Not Given Ondansetron HCl (Zofran Inj) 4 mg IVP Q8H PRN PRN Reason: Nausea/Vomiting Pantoprazole Sodium (Protonix Ec Tab) 20 mg PO DAILY [facility] Last Admin: 10/28/17 09:34 Dose: 20 mg Rosuvastatin Calcium (Crestor) 10 mg PO [facility] Last Admin: 10/27/17 22:42 Dose: Not Given Vitamin B Complex/Vit C/Folic Acid (Nephro-Anjelica) 1 tab PO 0800 [facility] Last Admin: 10/28/17 08:42 Dose: Not Given - Labs Labs: 10/28/17 11:47 10/28/17 12:03 APTT 33 SECONDS (21-34) 10/26/17 10:11
--- NOTE | 2017-10-28 18:12 | CP.PCM.PN ---
Subjective - Date & Time of Evaluation Date of Evaluation: 10/28/17 Time of Evaluation: 14:35 - Subjective Subjective: Patient seen and examined Complaining of vomiting and diarrhea at night Zithromax discontinued Continue Zosyn and vancomycin Patient is afebrile Continue hemodialysis Followup chest x-ray Taper steroids Objective - Vital Signs/Intake and Output Vital Signs (last 24 hours): Temp Pulse Resp BP Pulse Ox 99.3 F 87 18 164/77 H 96 10/28/17 13:48 10/28/17 15:00 10/28/17 07:30 10/28/17 17:55 10/28/17 07:30 Intake and Output: 10/28/17 10/28/17 06:59 18:59 Intake Total 620 480 Output Total 400 Balance 220 480 - Medications Medications: Current Medications Acetaminophen (Tylenol 325mg Tab) 650 mg PO Q4 PRN PRN Reason: Fever >100.4 F Last Admin: 10/25/17 02:14 Dose: 650 mg Albuterol/Ipratropium (Duoneb 3 Mg/0.5 Mg (3 Ml) Ud) 3 ml INH RQ6 [facility] Last Admin: 10/28/17 15:00 Dose: 3 ml Aspirin (Ecotrin) 81 mg PO DAILY [facility] Last Admin: 10/28/17 09:34 Dose: 81 mg Calcium Acetate (Phoslo) 667 mg PO TIDCC [facility] Last Admin: 10/28/17 17:51 Dose: 667 mg Carvedilol (Coreg) 12.5 mg PO BID [facility] Last Admin: 10/28/17 17:55 Dose: 12.5 mg Clonidine HCl (Catapres) 0.3 mg PO Q8 [facility] Last Admin: 10/28/17 13:22 Dose: Not Given Diphenhydramine HCl (Benadryl) 25 mg PO Q8 PRN PRN Reason: Itching / Pruritus Last Admin: 10/17/17 21:53 Dose: 25 mg Epoetin Cornelius (Procrit) 8,000 unit IV MWF [facility] Guaifenesin/Dextromethorphan (Robitussin Dm) 10 ml PO Q4H PRN PRN Reason: Cough and congestion Last Admin: 10/25/17 09:54 Dose: 10 ml Heparin Sodium (Porcine) (Heparin) 5,000 units SC Q8 [facility] Last Admin: 10/28/17 13:24 Dose: 5,000 units Hydralazine HCl (Apresoline) 10 mg IVP Q6H PRN PRN Reason: SBP > 180 Hydromorphone HCl (Dilaudid) 0.5 mg IVP Q4H PRN PRN Reason: Pain, severe (8-10) Last Admin: 10/28/17 14:55 Dose: 0.5 mg Piperacillin Sod/Tazobactam Sod (Zosyn 2.25 Gm Iv Premix) 2.25 gm in 50 mls @ 100 mls/hr IVPB Q8H [facility] PRN Reason: Protocol Last Admin: 10/28/17 17:51 Dose: 100 mls/hr Vancomycin/Sodium Chloride (Vancomycin 1 Gm/Ns 200 Ml) 1 gm in 200 mls @ 133 mls/hr IVPB MWF [facility] PRN Reason: Protocol Stop: 11/07/17 10:31 Insulin Aspart (Novolog) 0 unit SC ACHS [facility] PRN Reason: Protocol Last Admin: 10/28/17 17:51 Dose: 4 unit Insulin Glargine (Lantus) 10 unit SC [facility] Last Admin: 10/27/17 22:42 Dose: Not Given Methylprednisolone (Solu-Medrol) 20 mg IVP DAILY [facility] Last Admin: 10/28/17 09:34 Dose: 20 mg Metoclopramide HCl (Reglan) 5 mg PO ACHS [facility] Last Admin: 10/28/17 17:51 Dose: 5 mg Ondansetron HCl (Zofran Inj) 4 mg IVP Q8H PRN PRN Reason: Nausea/Vomiting Pantoprazole Sodium (Protonix Ec Tab) 20 mg PO DAILY [facility] Last Admin: 10/28/17 09:34 Dose: 20 mg Rosuvastatin Calcium (Crestor) 10 mg PO [facility] Last Admin: 10/27/17 22:42 Dose: Not Given Vitamin B Complex/Vit C/Folic Acid (Nephro-Anjelica) 1 tab PO 0800 [facility] Last Admin: 10/28/17 08:42 Dose: Not Given - Labs Labs: 10/28/17 11:47 10/28/17 12:03 APTT 33 SECONDS (21-34) 10/26/17 10:11 Assessment and Plan (1) Pneumonia Status: Acute (2) COPD with acute exacerbation Status: Acute (3) ESRD needing dialysis Status: Acute
--- NOTE | 2017-10-28 19:06 | PN ---
DATE: 10/28/2017 SUBJECTIVE: The patient has experienced severe abdominal pain and nausea. She vomited last night and today she has experienced infrequent recurrent watery diarrhea with incontinence. The patient denies any substernal chest pain. PHYSICAL EXAMINATION: VITAL SIGNS: Blood pressure 145/73, heart rate 93, temperature 99.9, and respirations 18. HEENT: Pale conjunctivae. CHEST: Clear. HEART: Heart sounds are regular. ABDOMEN: Epigastric tenderness. No McBurney point tenderness. No rebound tenderness. EXTREMITIES: No edema. LABORATORY DATA: Hemoglobin and hematocrit 9 and 27.2. White count 12.9 and platelet count 174,000. Today's SMA-7, sodium 136, potassium 5.3, chloride 96, CO2 of 24, glucose 142, BUN 66, creatinine 6.9, and calcium 7.2. ASSESSMENT: 1. Borderline troponin elevation. Consider [id number] myocardial infarction. 2. Abdominal pain with leukocytosis and low grade fever as well as earlier hypotension, rule out underlying sepsis. The blood culture is negative after 48 hours. 3. Hypertension and diabetes mellitus. 4. End-stage renal disease, on hemodialysis. RECOMMENDATIONS: I did request stool for C. diff as well as . Continue Coreg 12.5 mg twice a day, aspirin 81 mg once a day, PhosLo one tablet t.i.d., IV vancomycin 1 gm Sunday, Sunday, and Sunday, Zosyn 2.25 gm intravenously every 8 hours. Obtain abdominal perfusion scan without contrast. I will hold on any plans for cardiac catheterization for now. Olayinka Brown MD
[2017-10-28] MEDS: (Lantus) Insulin Glargine, Recombinant SC SCH (21:31)
--- NOTE | 2017-10-28 23:08 | CP.PCM.PN ---
Subjective - Date & Time of Evaluation Date of Evaluation: 10/28/17 Time of Evaluation: 18:35 - Subjective Subjective: Patient seen and examined Complaining of vomiting and diarrhea at night Zithromax discontinued Continue Zosyn and vancomycin Patient is afebrile Continue hemodialysis Followup chest x-ray Taper steroids Objective - Vital Signs/Intake and Output Vital Signs (last 24 hours): Temp Pulse Resp BP Pulse Ox 97.9 F 86 20 164/77 H 96 10/28/17 15:00 10/28/17 15:00 10/28/17 15:00 10/28/17 17:55 10/28/17 15:00 Intake and Output: 10/28/17 10/29/17 18:59 06:59 Intake Total 480 Balance 480 - Medications Medications: Current Medications Acetaminophen (Tylenol 325mg Tab) 650 mg PO Q4 PRN PRN Reason: Fever >100.4 F Last Admin: 10/25/17 02:14 Dose: 650 mg Albuterol/Ipratropium (Duoneb 3 Mg/0.5 Mg (3 Ml) Ud) 3 ml INH RQ6 [facility] Last Admin: 10/28/17 20:03 Dose: Not Given Aspirin (Ecotrin) 81 mg PO DAILY [facility] Last Admin: 10/28/17 09:34 Dose: 81 mg Calcium Acetate (Phoslo) 667 mg PO TIDCC [facility] Last Admin: 10/28/17 17:51 Dose: 667 mg Carvedilol (Coreg) 12.5 mg PO BID [facility] Last Admin: 10/28/17 17:55 Dose: 12.5 mg Clonidine HCl (Catapres) 0.3 mg PO Q8 [facility] Last Admin: 10/28/17 21:31 Dose: 0.3 mg Diphenhydramine HCl (Benadryl) 25 mg PO Q8 PRN PRN Reason: Itching / Pruritus Last Admin: 10/17/17 21:53 Dose: 25 mg Epoetin Cornelius (Procrit) 8,000 unit IV MWF [facility] Guaifenesin/Dextromethorphan (Robitussin Dm) 10 ml PO Q4H PRN PRN Reason: Cough and congestion Last Admin: 10/25/17 09:54 Dose: 10 ml Heparin Sodium (Porcine) (Heparin) 5,000 units SC Q8 [facility] Last Admin: 10/28/17 21:31 Dose: 5,000 units Hydralazine HCl (Apresoline) 10 mg IVP Q6H PRN PRN Reason: SBP > 180 Hydromorphone HCl (Dilaudid) 0.5 mg IVP Q4H PRN PRN Reason: Pain, severe (8-10) Last Admin: 10/28/17 21:47 Dose: 0.5 mg Piperacillin Sod/Tazobactam Sod (Zosyn 2.25 Gm Iv Premix) 2.25 gm in 50 mls @ 100 mls/hr IVPB Q8H [facility] PRN Reason: Protocol Last Admin: 10/28/17 17:51 Dose: 100 mls/hr Vancomycin/Sodium Chloride (Vancomycin 1 Gm/Ns 200 Ml) 1 gm in 200 mls @ 133 mls/hr IVPB MWF [facility] PRN Reason: Protocol Stop: 11/07/17 10:31 Insulin Aspart (Novolog) 0 unit SC ACHS [facility] PRN Reason: Protocol Last Admin: 10/28/17 21:49 Dose: Not Given Insulin Glargine (Lantus) 10 unit SC [facility] Last Admin: 10/28/17 21:31 Dose: 10 units Methylprednisolone (Solu-Medrol) 20 mg IVP DAILY [facility] Last Admin: 10/28/17 09:34 Dose: 20 mg Metoclopramide HCl (Reglan) [address] [facility] Last Admin: 10/28/17 21:31 Dose: 5 mg Ondansetron HCl (Zofran Inj) 4 mg IVP Q8H PRN PRN Reason: Nausea/Vomiting Pantoprazole Sodium (Protonix Ec Tab) 20 mg PO DAILY [facility] Last Admin: 10/28/17 09:34 Dose: 20 mg Rosuvastatin Calcium (Crestor) 10 mg PO HS [facility] Last Admin: 10/28/17 21:31 Dose: 10 mg Vitamin B Complex/Vit C/Folic Acid (Nephro-Anjelica) 1 tab PO 0800 [facility] Last Admin: 10/28/17 08:42 Dose: Not Given - Labs Labs: 10/28/17 11:47 10/28/17 12:03 APTT 33 SECONDS (21-34) 10/26/17 10:11 Assessment and Plan (1) COPD with acute exacerbation Status: Acute (2) Abdominal pain Status: Acute (3) Diabetic foot ulcer Status: Acute (4) Hypertension Status: Chronic (5) Hypertensive CKD, ESRD on dialysis Status: Chronic
--- NOTE | 2017-10-28 23:10 | CP.PCM.PN ---
Subjective - Date & Time of Evaluation Date of Evaluation: 10/27/17 Time of Evaluation: 20:40 - Subjective Subjective: seen and examined complains of fatigue and abdominal discomfort Objective - Vital Signs/Intake and Output Vital Signs (last 24 hours): Temp Pulse Resp BP Pulse Ox 97.9 F 86 20 164/77 H 96 10/28/17 15:00 10/28/17 15:00 10/28/17 15:00 10/28/17 17:55 10/28/17 15:00 Intake and Output: 10/28/17 10/29/17 18:59 06:59 Intake Total 480 Balance 480 - Medications Medications: Current Medications Acetaminophen (Tylenol 325mg Tab) 650 mg PO Q4 PRN PRN Reason: Fever >100.4 F Last Admin: 10/25/17 02:14 Dose: 650 mg Albuterol/Ipratropium (Duoneb 3 Mg/0.5 Mg (3 Ml) Ud) 3 ml INH RQ6 [facility] Last Admin: 10/28/17 20:03 Dose: Not Given Aspirin (Ecotrin) 81 mg PO DAILY [facility] Last Admin: 10/28/17 09:34 Dose: 81 mg Calcium Acetate (Phoslo) 667 mg PO TIDCC [facility] Last Admin: 10/28/17 17:51 Dose: 667 mg Carvedilol (Coreg) 12.5 mg PO BID [facility] Last Admin: 10/28/17 17:55 Dose: 12.5 mg Clonidine HCl (Catapres) 0.3 mg PO Q8 [facility] Last Admin: 10/28/17 21:31 Dose: 0.3 mg Diphenhydramine HCl (Benadryl) 25 mg PO Q8 PRN PRN Reason: Itching / Pruritus Last Admin: 10/17/17 21:53 Dose: 25 mg Epoetin Cornelius (Procrit) 8,000 unit IV MWF [facility] Guaifenesin/Dextromethorphan (Robitussin Dm) 10 ml PO Q4H PRN PRN Reason: Cough and congestion Last Admin: 10/25/17 09:54 Dose: 10 ml Heparin Sodium (Porcine) (Heparin) 5,000 units SC Q8 [facility] Last Admin: 10/28/17 21:31 Dose: 5,000 units Hydralazine HCl (Apresoline) 10 mg IVP Q6H PRN PRN Reason: SBP > 180 Hydromorphone HCl (Dilaudid) 0.5 mg IVP Q4H PRN PRN Reason: Pain, severe (8-10) Last Admin: 10/28/17 21:47 Dose: 0.5 mg Piperacillin Sod/Tazobactam Sod (Zosyn 2.25 Gm Iv Premix) 2.25 gm in 50 mls @ 100 mls/hr IVPB Q8H [facility] PRN Reason: Protocol Last Admin: 10/28/17 17:51 Dose: 100 mls/hr Vancomycin/Sodium Chloride (Vancomycin 1 Gm/Ns 200 Ml) 1 gm in 200 mls @ 133 mls/hr IVPB MWF [facility] PRN Reason: Protocol Stop: 11/07/17 10:31 Insulin Aspart (Novolog) 0 unit SC [facility] PRN Reason: Protocol Last Admin: 10/28/17 21:49 Dose: Not Given Insulin Glargine (Lantus) 10 unit SC [facility] Last Admin: 10/28/17 21:31 Dose: 10 units Methylprednisolone (Solu-Medrol) 20 mg IVP DAILY [facility] Last Admin: 10/28/17 09:34 Dose: 20 mg Metoclopramide HCl (Reglan) 5 mg PO [facility] Last Admin: 10/28/17 21:31 Dose: 5 mg Ondansetron HCl (Zofran Inj) 4 mg IVP Q8H PRN PRN Reason: Nausea/Vomiting Pantoprazole Sodium (Protonix Ec Tab) 20 mg PO DAILY [facility] Last Admin: 10/28/17 09:34 Dose: 20 mg Rosuvastatin Calcium (Crestor) 10 mg PO [facility] Last Admin: 10/28/17 21:31 Dose: 10 mg Vitamin B Complex/Vit C/Folic Acid (Nephro-Anjelica) 1 tab PO 0800 [facility] Last Admin: 10/28/17 08:42 Dose: Not Given - Labs Labs: 10/28/17 11:47 10/28/17 12:03 APTT 33 SECONDS (21-34) 10/26/17 10:11 Assessment and Plan (1) COPD with acute exacerbation Status: Acute (2) Abdominal pain Status: Acute (3) Diabetic foot ulcer Status: Acute (4) Hypertension Status: Chronic (5) Hypertensive CKD, ESRD on dialysis Status: Chronic
[2017-10-29] MEDS: Piperacill/Tazo 2.25gm in Dex 2.25 GM/50 ML BAG IVPB SCH ×3 (00:33→19:34)
[2017-10-29] MEDS: HYDROmorphone 0.5 mg/0.5 ml ISec IVP PRN ×4 (02:11→19:21)
[2017-10-29] MEDS: Albuterol-Ipratrop 3 mg / 0.5 (3 ml) UD INH SCH ×4 (02:55→20:08)
[2017-10-29] MEDS ORDERED: EPOETIN ALFA 4,000 UNIT/ML ML Dialysis IV SCH (09:00)
--- NOTE | 2017-10-29 09:20 | VASCLAB ---
PROCEDURE: Left Upper Extremity Venous Duplex Exam HISTORY: R/O DVT, SWOLLEN PT HAS AV ACESS PRIORS: None. TECHNIQUE: Left upper extremity, internal jugular, subclavian, axillary, brachial, ulnar, radial, basilic and upper cephalic veins were evaluated. Flow was assessed with color Doppler, compressibility, assessment of phasic flow and augmentation response. Report prepared by ALLYN Torres FINDINGS: LEFT: 1. Internal Jugular: 1.1. Compressibility - Fully compressible: Thrombus - None : Flow - Phasic: Augmentation -Normal: Reflux - None. 2. Subclavian: 2.1. Compressibility - mostly compressible: Thrombus - None : Flow - Phasic: Augmentation -Normal: Reflux - None. 3. Axillary: 3.1. Compressibility - Fully compressible: Thrombus - None : Flow - Phasic: Augmentation -Normal: Reflux - None. 4. Brachial: 4.1. Compressibility - Fully compressible: Thrombus - None: Flow - Phasic: Augmentation -Normal: Reflux - None. 5. Ulnar: 5.1. Compressibility - Fully compressible: Thrombus - None: Flow - Phasic: Augmentation -Normal: Reflux - None. 6. Radial: 6.1. Compressibility - Fully compressible: Thrombus - None: Flow - Phasic: Augmentation - Normal: Reflux - None. 7. Cephalic: 7.1. Compressibility - Fully compressible: Thrombus - None: Flow - Phasic: Augmentation -Normal: Reflux - None. 8. Basilic: 8.1. Compressibility - Fully compressible: Thrombus - None: Flow - Phasic: Augmentation -Normal: Reflux - None. OTHER FINDINGS: Left: The subclavian vein was difficult to compress due to left arm AV fistula. IMPRESSION: Left: No evidence of vein thrombosis of the left upper extremity with excellent venous flow. Normal valve function noted of the left side. Normal venous flow noted in the right internal jugular and right subclavian veins.
--- NOTE | 2017-10-29 09:20 | VASCLAB ---
PROCEDURE: Lower Extremity Venous Duplex Exam. HISTORY: r/o DVT PRIORS: None. TECHNIQUE: Bilateral common femoral, femoral, popliteal and posterior tibial, peroneal and great saphenous veins were evaluated. Flow was assessed with color Doppler, compressibility, assessment of phasic flow and augmentation response. Report prepared by ALLYN Torres FINDINGS: RIGHT: 1. Common Femoral Vein: 1.1. Compressibility - Fully compressible: Thrombus - None : Flow - Phasic: Augmentation -Normal: Reflux - None. 2. Femoral Vein: 2.1. Compressibility - Fully compressible: Thrombus - None : Flow - Phasic: Augmentation -Normal: Reflux - None. 3. Popliteal Vein: 3.1. Compressibility - Fully compressible: Thrombus - None : Flow - Phasic: Augmentation -Normal: Reflux - None. 4. Posterior Tibial Vein: 4.1. Compressibility - Fully compressible: Thrombus - None: Flow - Phasic: Augmentation -Normal: Reflux - None. 5. Peroneal Vein: 5.1. Compressibility - Fully compressible: Thrombus - None: Flow - Phasic: Augmentation -Normal: Reflux - None. 6. Great Saphenous Vein: 6.1. Compressibility - Fully compressible: Thrombus - None: Flow - Phasic: Augmentation - Normal: Reflux - None. LEFT: 1. Common Femoral Vein: 1.1. Compressibility - Fully compressible: Thrombus - None: Flow - Phasic: Augmentation -Normal: Reflux - None. 2. Femoral Vein: 2.1. Compressibility - Fully compressible: Thrombus - None: Flow - Phasic: Augmentation -Normal: Reflux - None. 3. Popliteal Vein: 3.1. Compressibility - Fully compressible: Thrombus - None : Flow - Phasic: Augmentation -Normal: Reflux - None. 4. Posterior Tibial Vein: 4.1. Compressibility - Fully compressible: Thrombus - None: Flow - Phasic: Augmentation -Normal: Reflux - None. 5. Peroneal Vein: 5.1. Compressibility - Fully compressible: Thrombus - None: Flow - Phasic: Augmentation -Normal: Reflux - None. 6. Great Saphenous Vein: 6.1. Compressibility - Fully compressible: Thrombus - None: Flow - Phasic: Augmentation - Normal: Reflux - None. OTHER FINDINGS: Right: None significant. Left: None significant. IMPRESSION: Right: No evidence of deep or superficial vein thrombosis of the right lower extremity. Normal valve function noted of the right side. Left: No evidence of deep or superficial vein thrombosis of the left lower extremity. Normal valve function noted of the left side.
[2017-10-29] MEDS: (Novolog) Insulin Aspart, Recombinant 100 u/ml 10 ml vial SC SCH ×4 (10:36→22:21)
[2017-10-29] MEDS: Multivitamin Vitamin B Complex (Nephro-Vite) Tab PO SCH (10:37)
[2017-10-29] MEDS: MethylPREDNISolone 40 mg Vial IVP SCH (11:06)
[2017-10-29] MEDS: Pantoprazole 20 mg EC Tab PO SCH (11:06)
[2017-10-29] MEDS: Vancomycin 1 gm/NS 200 ml 1 GM/200 ML BAG IVPB SCH (13:36)
[2017-10-29 14:50] LABS: BASO % 0.1 % (0.0-2.0); EOS # 0.5 K/uL (0.0-0.7); EOS % 2.1 % (0.0-4.0); HEMOGLOBIN 8.5 g/dL (11.0-16.0); LYMPH # 0.3 K/uL (1.0-4.3); LYMPH % 1.5 % (20.0-40.0); MEAN CELL VOLUME 100.2 fL (81.0-99.0); MEAN CORPUSCULAR HEMOGLOBIN 33.8 pg (27.0-31.0); MEAN CORPUSCULAR HGB CONC 33.8 g/dL (33.0-37.0); MEAN PLATELET VOLUME 8.8 fL (7.2-11.7); MONO # 0.5 K/uL (0.0-0.8); MONO % 2.2 % (0.0-10.0); NEUT # 20.2 K/uL (1.8-7.0); NEUT % 94.1 % (50.0-75.0); PLATELET COUNT 161 K/uL (130-400); RBC 2.51 Mil/uL (3.80-5.20); RED CELL DISTRIBUTION WIDTH 17.4 % (11.5-14.5); WHITE BLOOD COUNT 21.5 K/uL (4.8-10.8)
--- NOTE | 2017-10-29 15:50 | CARD ---
APPROVED REPORT EXAM: Two-dimensional and M-mode echocardiogram with Doppler and color Doppler. Other Information Quality : AverageRhythm : NSR INDICATION Dyspnea ESRD/ACS M-Mode DIMENSIONS RVDd1.76 (2.1-3.2cm)Left Atrium (MM)5.04 (2.5-4.0cm) IVSd1.09 (0.7-1.1cm)Aortic Root2.38 (2.2-3.7cm) LVDd4.06 (4.0-5.6cm)Aortic Cusp Exc.1.48 (1.5-2.0cm) PWd1.05 (0.7-1.1cm)FS (%) 38 % LVDs2.50 (2.0-3.8cm)LVEF (%)69 (>50%) Aortic Valve AoV Peak Dnkwsjhm360.6cm/Mell Peak GR.10mmHg Mitral Valve MV E Qfssmyys245.2cm/sMV A Tqvqhkwp62.6cm/sE/A ratio1.7 TDI E/Lateral E'0.0E/Medial E'0.0 Tricuspid Valve TR Peak Pqdapkrj440xm/sTR Peak Gr.64rmLrMENQ82jbBq LEFT VENTRICLE The left ventricle is normal size. There is moderate to severe concentric left ventricular hypertrophy.m mode is not reliable. The Ejection Fraction is 60-65%. There is normal LV segmental wall motion. Transmitral Doppler flow pattern is Grade II-pseudonormal filling dynamics. RIGHT VENTRICLE The right ventricle is normal size. The right ventricular systolic function is normal. ATRIA The left atrium is moderately dilated. The right atrium size is normal. The interatrial septum is intact with no evidence for an atrial septal defect. AORTIC VALVE The aortic valve is mildly sclerotic. No aortic regurgitation is present. MITRAL VALVE The mitral valve is normal in structure. There is no mitral valve regurgitation noted. TRICUSPID VALVE The tricuspid valve is normal in structure. There is mild tricuspid regurgitation. Right ventricular systolic pressure is estimated at 39 mmHg. There is mild pulmonary hypertension. PULMONIC VALVE The pulmonary valve is normal in structure. GREAT VESSELS The aortic root is normal size. The aortic root displays mild sclerocalcific changes of the aortic root. The IVC is normal in size and collapses >50% with inspiration. PERICARDIAL EFFUSION There is no pericardial effusion. <Conclusion> The left ventricle is normal size. There is moderate to severe concentric left ventricular hypertrophy.m mode is not reliable. The Ejection Fraction is 60-65%. Transmitral Doppler flow pattern is Grade II-pseudonormal filling dynamics. The left atrium is moderately dilated. There is mild tricuspid regurgitation. Right ventricular systolic pressure is estimated at 39 mmHg. There is mild pulmonary hypertension. The aortic root is normal size. The aortic root displays mild sclerocalcific changes of the aortic root. There is no pericardial effusion.
[2017-10-29 15:51] LABS: ANISOCYTOSIS SLIGHT; BANDS 1 % (0-2); EOSINOPHIL 2 % (0-4); HYPOCHROMIC SLIGHT; LYMPHOCYTE 2 % (20-40); MONOCYTE 3 % (0-10); NEUTROPHIL 92 % (50-75); PLATELET ESTIMATE NORMAL (NORMAL); POIKILOCYTOSIS SLIGHT; TARGET CELLS SLIGHT; TOTAL CELLS COUNTED 100
--- NOTE | 2017-10-29 16:18 | CP.PCM.PN ---
Subjective - Date & Time of Evaluation Date of Evaluation: 10/29/17 Time of Evaluation: 16:15 - Subjective Subjective: Nephrology Consultation Note: Assessment: Stable COPD exacerbation with pneumonia Acute Gastroenteritis (resolved) Missed HD with hyperkalemia Hyperglycemia Diabetic chronic Kidney Disease (E11.22) Hypertensive Chronic Kidney Disease (I12.0) End stage renal disease (N18.6) dependence on hemodialysis (Z99.2) (MWF) via AVF Anemia (D64.9), Hyperphosphatemia (E83.39), Secondary Hyperparathyroidism (E21.1 ), HTN (I12.0) ex smoker Plan: Will plan for HD today as ordered per MW schedule. Continue with Nephrovite 1 tab/day. low K diet d/w pt PRBC as needed for anemia. on EDMAR increased with dialysis as last Hb 9 Continue with phos binders BP control with meds as ordered. Patient not on RAAS shay as tendency for hyperkalemia. BP going up again. Plan to resume nifedipine 90 mg home dose Glycemic control, Dialysis consistent diet Further work up/management as per primary team Dose meds/antibiotics for ESRD status. Avoid fleets enema/magnesium based laxatives. pt on steroids and nebs for COPD exac. Pulmonary and cardiology following Thanks for allowing me to participate in care of your patient. Will follow patient with you. Please call if any Qs. had d/w team Dr Aurelio Brar Office: [phone] HPI: Pt is a 42 F with hx of ESRD on hemodialysis (MWF) via AVF @ [facility] , last dialysis Sunday, chronic anemia, hyperphosphatemia, secondary hyperparathyroidism, Diabetes Mellitus, hypertension presented with complaints of feeling sick since sunday with pain abdomen, nausea/vomitting and loose stool Renal consult requested for ESRD management. also reports cough ROS: feels the same, no new complaints except back and abdomen soreness. Physical Examination: seen on HD General Appearance: comfortable, in no acute respiratory distress, co-operative . Vitals reviewed and noted as below Head; Atraumatic, normocephalic ENT: no ulcers no thrush. Tongue is midline. Oropharynx: no rash or ulcers. EYES: Pupils are equal, round and reactive to light accommodation. Eye muscles and extraocular movement intact. Sclera is anicteric. Neck; supple no lymphadenopathy, no thyromegaly or bruit Lungs: Normal respiratory rate/effort. Breath sounds bilateral equal and clear today, air entry Heart: Normal rate. s1s2 normal. No rub or gallop. Extremities: no edema. No varicose veins Neurological: Patient is alert, awake and oriented to person, place and time. No focal deficit. Strength bilateral appropriate and equal Skin: Warm and dry. Normal turgor. No rash. Palpitation: Normal elasticity for age Abdomen: Abdomen is soft. Bowel sounds +. There is no abdominal tenderness, no guarding/rigidity or organomegaly Psych: normal insight and flat affect/mood MSK: no joint tenderness or swelling. Digits and nails normal, no deformity : kidney or bladder not palpable Access: AVF Labs/imaging reviewed. Past medical history, past surgical history, family history, social history, allergy reviewed and noted as below Family Hx: no hx of CKD. Non contributory Objective - Vital Signs/Intake and Output Vital Signs (last 24 hours): Temp Pulse Resp BP Pulse Ox 98.7 F 89 20 165/63 H 95 10/29/17 14:05 10/29/17 14:05 10/29/17 08:37 10/29/17 14:20 10/29/17 08:37 - Medications Medications: Current Medications Acetaminophen (Tylenol 325mg Tab) 650 mg PO Q4 PRN PRN Reason: Fever >100.4 F Last Admin: 10/25/17 02:14 Dose: 650 mg Albuterol/Ipratropium (Duoneb 3 Mg/0.5 Mg (3 Ml) Ud) 3 ml INH RQ6 [facility] Last Admin: 10/29/17 08:20 Dose: Not Given Aspirin (Ecotrin) 81 mg PO DAILY [facility] Last Admin: 10/29/17 10:45 Dose: 81 mg Calcium Acetate (Phoslo) 667 mg PO TIDCC [facility] Last Admin: 10/29/17 15:28 Dose: Not Given Carvedilol (Coreg) 12.5 mg PO BID [facility] Last Admin: 10/29/17 10:29 Dose: 12.5 mg Clonidine HCl (Catapres) 0.3 mg PO Q8 [facility] Last Admin: 10/29/17 15:29 Dose: Not Given Diphenhydramine HCl (Benadryl) 25 mg PO Q8 PRN PRN Reason: Itching / Pruritus Last Admin: 10/17/17 21:53 Dose: 25 mg Epoetin Cornelius ([facility]crit) [facility] Guaifenesin/Dextromethorphan (Robitussin Dm) 10 ml PO Q4H PRN PRN Reason: Cough and congestion Last Admin: 10/25/17 09:54 Dose: 10 ml Heparin Sodium (Porcine) (Heparin) 5,000 units SC Q8 [facility] Last Admin: 10/29/17 15:28 Dose: Not Given Hydralazine HCl (Apresoline) 10 mg IVP Q6H PRN PRN Reason: SBP > 180 Hydromorphone HCl (Dilaudid) 0.5 mg IVP Q4H PRN PRN Reason: Pain, severe (8-10) Last Admin: 10/29/17 10:35 Dose: 0.5 mg Piperacillin Sod/Tazobactam Sod (Zosyn 2.25 Gm Iv Premix) 2.25 gm in 50 mls @ 100 mls/hr IVPB Q8H [facility] PRN Reason: Protocol Last Admin: 10/29/17 11:06 Dose: 100 mls/hr Vancomycin/Sodium Chloride (Vancomycin 1 Gm/Ns 200 Ml) 1 gm in 200 mls @ 133 mls/hr IVPB [facility] PRN Reason: Protocol Stop: 11/07/17 10:31 Last Admin: 10/29/17 13:36 Dose: Not Given Insulin Aspart (Novolog) 0 unit SC [facility] PRN Reason: Protocol Last Admin: 10/29/17 12:45 Dose: 8 unit Insulin Glargine (Lantus) 10 unit SC [facility] Last Admin: 10/28/17 21:31 Dose: 10 units Metoclopramide HCl (Reglan) 5 mg PO ACHS [facility] Last Admin: 10/29/17 11:28 Dose: Not Given Ondansetron HCl (Zofran Inj) 4 mg IVP Q8H PRN PRN Reason: Nausea/Vomiting Pantoprazole Sodium (Protonix Ec Tab) 20 mg PO DAILY [facility] Last Admin: 10/29/17 11:06 Dose: 20 mg Prednisone (Prednisone Tab) 20 mg PO DAILY [facility] Rosuvastatin Calcium (Crestor) 10 mg PO [facility] Last Admin: 06/24/18 21:31 Dose: 10 mg Vitamin B Complex/Vit C/Folic Acid (Nephro-Anjelica) 1 tab PO 0800 [facility] Last Admin: 10/29/17 10:37 Dose: 1 tab - Labs Labs: 10/29/17 14:45 10/28/17 12:03 APTT 33 SECONDS (21-34) 10/26/17 10:11
--- NOTE | 2017-10-29 17:18 | CP.PCM.PN ---
Subjective - Date & Time of Evaluation Date of Evaluation: 10/29/17 Time of Evaluation: 10:30 - Subjective Subjective: ppatient seen and examined Getting physical therapy For dialysis today Cough and shortness of breath much improved Afebrile No further vomiting or diarrhea Continue antibiotics Objective - Vital Signs/Intake and Output Vital Signs (last 24 hours): Temp Pulse Resp BP Pulse Ox 98.7 F 89 16 187/76 H 95 10/29/17 14:05 10/29/17 14:05 10/29/17 14:00 10/29/17 14:50 10/29/17 08:37 - Medications Medications: Current Medications Acetaminophen (Tylenol 325mg Tab) 650 mg PO Q4 PRN PRN Reason: Fever >100.4 F Last Admin: 10/25/17 02:14 Dose: 650 mg Albuterol/Ipratropium (Duoneb 3 Mg/0.5 Mg (3 Ml) Ud) 3 ml INH RQ6 [facility] Last Admin: 10/29/17 16:52 Dose: Not Given Aspirin (Ecotrin) 81 mg PO DAILY [facility] Last Admin: 10/29/17 10:45 Dose: 81 mg Calcium Acetate (Phoslo) 667 mg PO TIDCC [facility] Last Admin: 10/29/17 15:28 Dose: Not Given Carvedilol (Coreg) 12.5 mg PO BID [facility] Last Admin: 10/29/17 10:29 Dose: 12.5 mg Clonidine HCl (Catapres) 0.3 mg PO Q8 [facility] Last Admin: 10/29/17 15:29 Dose: Not Given Diphenhydramine HCl (Benadryl) 25 mg PO Q8 PRN PRN Reason: Itching / Pruritus Last Admin: 10/17/17 21:53 Dose: 25 mg Epoetin Cornelius (Procrit) 10,000 unit IV MWF [facility] Guaifenesin/Dextromethorphan (Robitussin Dm) 10 ml PO Q4H PRN PRN Reason: Cough and congestion Last Admin: 10/25/17 09:54 Dose: 10 ml Heparin Sodium (Porcine) (Heparin) 5,000 units SC Q8 [facility] Last Admin: 10/29/17 15:28 Dose: Not Given Hydralazine HCl (Apresoline) 10 mg IVP Q6H PRN PRN Reason: SBP > 180 Hydromorphone HCl (Dilaudid) 0.5 mg IVP Q4H PRN PRN Reason: Pain, severe (8-10) Last Admin: 10/29/17 10:35 Dose: 0.5 mg Piperacillin Sod/Tazobactam Sod (Zosyn 2.25 Gm Iv Premix) 2.25 gm in 50 mls @ 100 mls/hr IVPB Q8H [facility] PRN Reason: Protocol Last Admin: 10/29/17 11:06 Dose: 100 mls/hr Vancomycin/Sodium Chloride (Vancomycin 1 Gm/Ns 200 Ml) 1 gm in 200 mls @ 133 mls/hr IVPB MWF [facility] PRN Reason: Protocol Stop: 11/07/17 10:31 Last Admin: 10/29/17 13:36 Dose: Not Given Insulin Aspart (Novolog) 0 unit SC [facility] PRN Reason: Protocol Last Admin: 10/29/17 12:45 Dose: 8 unit Insulin Glargine (Lantus) 10 unit SC [facility] Last Admin: 10/28/17 21:31 Dose: 10 units Metoclopramide HCl (Reglan) 5 mg PO [facility] Last Admin: 10/29/17 11:28 Dose: Not Given Nifedipine (Procardia Xl) 90 mg PO DAILY [facility] Ondansetron HCl (Zofran Inj) 4 mg IVP Q8H PRN PRN Reason: Nausea/Vomiting Pantoprazole Sodium (Protonix Ec Tab) 20 mg PO DAILY [facility] Last Admin: 10/29/17 11:06 Dose: 20 mg Prednisone (Prednisone Tab) 20 mg PO DAILY [facility] Rosuvastatin Calcium (Crestor) 10 mg PO HS [facility] Last Admin: 10/28/17 21:31 Dose: 10 mg Vitamin B Complex/Vit C/Folic Acid (Nephro-Anjelica) 1 tab PO 0800 [facility] Last Admin: 10/29/17 10:37 Dose: 1 tab - Labs Labs: 10/29/17 14:45 10/28/17 12:03 APTT 33 SECONDS (21-34) 10/26/17 10:11 - Head Exam Head Exam: ATRAUMATIC, NORMOCEPHALIC - ENT Exam ENT Exam: Mucous Membranes Moist - Neck Exam Neck Exam: Normal Inspection - Respiratory Exam Respiratory Exam: Clear to Ausculation Bilateral - Cardiovascular Exam Cardiovascular Exam: REGULAR RHYTHM Assessment and Plan (1) Pneumonia Assessment & Plan: continue antibiotics per infectious disease Hemodialysis Followup chest x-ray of Status: Acute (2) COPD with acute exacerbation Status: Acute (3) ESRD needing dialysis Status: Acute
--- NOTE | 2017-10-29 18:46 | CP.PCM.PN ---
Subjective - Date & Time of Evaluation Date of Evaluation: 10/29/17 Time of Evaluation: 18:46 - Subjective Subjective: CHIEF COMPLAINTS TODAY : AFEBRILE, Seen on hemodialysis today. c/o low back pain less cough. Cough is dry. Denies nausea or vomiting ROS. HEENT : N. Resp : +ve COUGH, wheezing ,pleuritic CP ,or hemoptysis Cardio : No anginal CP, PND, orthopnea, palpitation GI : No abd.pain, n/v ,diarrhea or GI bleeding . PARLOR CHAPERONE : No headache, vertigo, focal deficit. Musculoskel : No joint swelling , Derm : No rash Psych : Normal affect. Ext : No swelling ,calf pain PE. Pt. is alert awake in no distress. V.S As noted in the chart Head ,ear nose,throat and eyes : Normal. Neck : Supple with normal carotids. Lungs: RHONCHI RT SIDE Heart : S1 & S2 normal . No murmur. Abd : SOFT , MILD TENDERNESS EPIGASTRIUM ,with normal bowel sounds. Neuro : Moves all ext. with no localized deficit. Ext : No edema with intact pulses.Non tender calves Derm : No rashes or decubitus ulcer. LABS/RADIOLOGY: wbc 21.5, H/H 8.5/25.2 PLT 161 bLOOD CULTURES 10/25/17 NEGATIVE FOR 3 DAYS ASSESSMENT SEPSIS/HYPOTENSION PNEUMONIA LEUKOCYTOSIS-SOURCE NOT CLEAR R/O INTRA ABDOMINAL INFECTION CRBSI.(PT HAS A PICCLINE )/ ASPIRATION. VOMITING ?GASTROPERESIS/GASTRITIS DM-2 ESRD ON HD MWF. BACKPAIN. /PLAN : CERETAC SCAN R/O OCCULT ABSCESS. DECREASING STEROIDS / ? MASKING FEVERS CASE DISCUSSED WIT DR WONG (PULMONARY ) & SALESPERSON NEW CARS MS PEÑA Continue IV vancomycin 1 g post-each hemodialysis mwf x 5 doses 10/26/17. Continue iv Zosyn 2.25mg iv q 8hrly 10/25/17. ADD IV FLAGYL 500MG IV PB Q 12HRLY. 10/29/17 CAN GIVE ZOFRAN FOR NAUSEA/ VOMITING ZITHROMAX D/JOY. Objective - Vital Signs/Intake and Output Vital Signs (last 24 hours): Temp Pulse Resp BP Pulse Ox 97.3 F L 89 16 172/56 H 100 10/29/17 17:35 10/29/17 17:35 10/29/17 14:00 10/29/17 17:35 10/29/17 17:35 - Medications Medications: Current Medications Acetaminophen (Tylenol 325mg Tab) 650 mg PO Q4 PRN PRN Reason: Fever >100.4 F Last Admin: 10/25/17 02:14 Dose: 650 mg Albuterol/Ipratropium (Duoneb 3 Mg/0.5 Mg (3 Ml) Ud) 3 ml INH RQ6 [facility] Last Admin: 10/29/17 16:52 Dose: Not Given Aspirin (Ecotrin) 81 mg PO DAILY [facility] Last Admin: 10/29/17 10:45 Dose: 81 mg Calcium Acetate (Phoslo) 667 mg PO TIDCC [facility] Last Admin: 10/29/17 15:28 Dose: Not Given Carvedilol (Coreg) 12.5 mg PO BID [facility] Last Admin: 10/29/17 10:29 Dose: 12.5 mg Clonidine HCl (Catapres) 0.3 mg PO Q8 [facility] Last Admin: 10/29/17 15:29 Dose: Not Given Diphenhydramine HCl (Benadryl) 25 mg PO Q8 PRN PRN Reason: Itching / Pruritus Last Admin: 10/17/17 21:53 Dose: 25 mg Epoetin Cornelius (Procrit) 10,000 unit IV MWF [facility] Guaifenesin/Dextromethorphan (Robitussin Dm) 10 ml PO Q4H PRN PRN Reason: Cough and congestion Last Admin: 10/25/17 09:54 Dose: 10 ml Heparin Sodium (Porcine) (Heparin) 5,000 units SC Q8 [facility] Last Admin: 10/29/17 15:28 Dose: Not Given Hydralazine HCl (Apresoline) 10 mg IVP Q6H PRN PRN Reason: SBP > 180 Hydromorphone HCl (Dilaudid) 0.5 mg IVP Q4H PRN PRN Reason: Pain, severe (8-10) Last Admin: 10/29/17 10:35 Dose: 0.5 mg Piperacillin Sod/Tazobactam Sod (Zosyn 2.25 Gm Iv Premix) 2.25 gm in 50 mls @ 100 mls/hr IVPB Q8H [facility] PRN Reason: Protocol Last Admin: 10/29/17 11:06 Dose: 100 mls/hr Vancomycin/Sodium Chloride (Vancomycin 1 Gm/Ns 200 Ml) 1 gm in 200 mls @ 133 mls/hr IVPB MWF [facility] PRN Reason: Protocol Stop: 11/07/17 10:31 Last Admin: 10/29/17 13:36 Dose: Not Given Insulin Aspart (Novolog) 0 unit SC ACHS [facility] PRN Reason: Protocol Last Admin: 10/29/17 12:45 Dose: 8 unit Insulin Glargine (Lantus) 10 unit SC [facility] Last Admin: 10/28/17 21:31 Dose: 10 units Metoclopramide HCl (Reglan) 5 mg PO ACHS [facility] Last Admin: 10/29/17 11:28 Dose: Not Given Nifedipine (Procardia Xl) 90 mg PO DAILY [facility] Ondansetron HCl (Zofran Inj) 4 mg IVP Q8H PRN PRN Reason: Nausea/Vomiting Pantoprazole Sodium (Protonix Ec Tab) 20 mg PO DAILY [facility] Last Admin: 10/29/17 11:06 Dose: 20 mg Prednisone (Prednisone Tab) 20 mg PO DAILY [facility] Rosuvastatin Calcium (Crestor) 10 mg PO HS [facility] Last Admin: 10/28/17 21:31 Dose: 10 mg Vitamin B Complex/Vit C/Folic Acid (Nephro-Anjelica) 1 tab PO 0800 [facility] Last Admin: 10/29/17 10:37 Dose: 1 tab - Labs Labs: 10/29/17 14:45 10/28/17 12:03 APTT 33 SECONDS (21-34) 10/26/17 10:11 Assessment and Plan (1) Sepsis associated hypotension Status: Acute (2) Pneumonia Status: Acute (3) COPD with acute exacerbation Status: Acute (4) Gastroenteritis Status: Acute (5) DM2 (diabetes mellitus, type 2) Status: Chronic (6) ESRD (end stage renal disease) Status: Acute
[2017-10-29] MEDS: metroNIDAZOLE IV 500 mg/100 ml 500 MG/100 ML BAG IVPB SCH (20:05)
--- NOTE | 2017-10-29 22:01 | PN ---
DATE: 10/29/2017 SUBJECTIVE: The patient's abdominal pain has improved. She denies any substernal chest pain. Diarrhea also has improved. No sample was collected for C. diff as per the patient. She refused cardiac catheterization today. PHYSICAL EXAMINATION: VITAL SIGNS: Blood pressure 164/49, heart rate 89, temperature 98.7, respirations 16. HEENT: Pale conjunctivae. CHEST: Clear. HEART: S1, S2, regular. EXTREMITIES: Trace leg edema. LABORATORY DATA: Hemoglobin and hematocrit 8.5 and 25.2, white count 21.5, platelet count 161,000. Today's blood sugars are 231 and 312. Echocardiographic study report revealed normal ventricular size with moderate to severe concentric LVH with normal ejection fraction and grade II normal filling dynamic. Moderate dilated left atrium. Venous Doppler of the left upper extremity, no DVT. Venous Doppler of the lower extremity, no evidence of DVT. ASSESSMENT: 1. Consider [id number] myocardial infarction. 2. End-stage renal disease, on hemodialysis. 3. Hypertension and diabetes mellitus. 4. Chronic obstructive lung disease. RECOMMENDATIONS: Continue hydralazine 10 mg intravenously every 6 hours p.r.n. Continue clonidine at 0.2 mg p.o. every 8 hours. Continue Coreg 12.5 mg twice a day, Crestor 10 mg once a day, aspirin 81 mg once a day, subcutaneous heparin 5000 units every 8 hours, Procardia XL 90 mg once a day, Protonix 20 mg once a day, vancomycin 1 gm intravenously Sunday, Sunday and Sunday, and Zosyn 2.25 gm intravenously every 8 hours. Olayinka Brown MD
[2017-10-29] MEDS: (Lantus) Insulin Glargine, Recombinant SC SCH (22:15)
[2017-10-30] MEDS: HYDROmorphone 0.5 mg/0.5 ml ISec IVP PRN ×5 (00:03→19:46)
[2017-10-30] MEDS: Albuterol-Ipratrop 3 mg / 0.5 (3 ml) UD INH SCH ×4 (01:54→20:39)
[2017-10-30] MEDS: Piperacill/Tazo 2.25gm in Dex 2.25 GM/50 ML BAG IVPB SCH ×3 (02:19→17:45)
--- NOTE | 2017-10-30 05:59 | CP.PCM.PN ---
Subjective - Date & Time of Evaluation Date of Evaluation: 10/29/17 Time of Evaluation: 21:00 - Subjective Subjective: Pt seen and examined at bedside Objective - Vital Signs/Intake and Output Vital Signs (last 24 hours): Temp Pulse Resp BP Pulse Ox 98.8 F 80 20 168/81 H 96 10/29/17 23:05 10/30/17 04:55 10/29/17 23:05 10/30/17 04:55 10/29/17 23:05 - Medications Medications: Current Medications Acetaminophen (Tylenol 325mg Tab) 650 mg PO Q4 PRN PRN Reason: Fever >100.4 F Last Admin: 10/25/17 02:14 Dose: 650 mg Albuterol/Ipratropium (Duoneb 3 Mg/0.5 Mg (3 Ml) Ud) 3 ml INH RQ6 [facility] Last Admin: 10/30/17 01:54 Dose: Not Given Aspirin (Ecotrin) 81 mg PO DAILY [facility] Last Admin: 10/29/17 10:45 Dose: 81 mg Calcium Acetate (Phoslo) 667 mg PO TIDCC [facility] Last Admin: 10/29/17 19:24 Dose: 667 mg Carvedilol (Coreg) 12.5 mg PO BID [facility] Last Admin: 10/29/17 19:25 Dose: 12.5 mg Clonidine HCl (Catapres) 0.3 mg PO Q8 [facility] Last Admin: 10/30/17 05:08 Dose: 0.3 mg Diphenhydramine HCl (Benadryl) 25 mg PO Q8 PRN PRN Reason: Itching / Pruritus Last Admin: 10/17/17 21:53 Dose: 25 mg Epoetin Cornelius (Procrit) 10,000 unit IV MWF [facility] Guaifenesin/Dextromethorphan (Robitussin Dm) 10 ml PO Q4H PRN PRN Reason: Cough and congestion Last Admin: 10/25/17 09:54 Dose: 10 ml Heparin Sodium (Porcine) (Heparin) 5,000 units SC Q8 [facility] Last Admin: 10/30/17 05:08 Dose: 5,000 units Hydralazine HCl (Apresoline) 10 mg IVP Q6H PRN PRN Reason: SBP > 180 Hydromorphone HCl (Dilaudid) 0.5 mg IVP Q4H PRN PRN Reason: Pain, severe (8-10) Last Admin: 10/30/17 05:01 Dose: 0.5 mg Piperacillin Sod/Tazobactam Sod (Zosyn 2.25 Gm Iv Premix) 2.25 gm in 50 mls @ 100 mls/hr IVPB Q8H [facility] PRN Reason: Protocol Last Admin: 10/30/17 02:19 Dose: 100 mls/hr Vancomycin/Sodium Chloride (Vancomycin 1 Gm/Ns 200 Ml) 1 gm in 200 mls @ 133 mls/hr IVPB MWF [facility] PRN Reason: Protocol Stop: 11/07/17 10:31 Last Admin: 10/29/17 13:36 Dose: Not Given Metronidazole (Flagyl) 500 mg in 100 mls @ 100 mls/hr IVPB Q12H [facility] PRN Reason: Protocol Last Admin: 10/29/17 20:05 Dose: 100 mls/hr Insulin Aspart (Novolog) 0 unit SC ACHS [facility] PRN Reason: Protocol Last Admin: 10/29/17 22:21 Dose: 2 unit Insulin Glargine (Lantus) 10 unit SC HS [facility] Last Admin: 10/29/17 22:15 Dose: 10 units Metoclopramide HCl (Reglan) 5 mg PO ACHS [facility] Last Admin: 10/29/17 22:16 Dose: 5 mg Nifedipine (Procardia Xl) 90 mg PO DAILY [facility] Ondansetron HCl (Zofran Inj) 4 mg IVP Q8H PRN PRN Reason: Nausea/Vomiting Pantoprazole Sodium (Protonix Ec Tab) 20 mg PO DAILY [facility] Last Admin: 10/29/17 11:06 Dose: 20 mg Prednisone (Prednisone Tab) 20 mg PO DAILY [facility] Rosuvastatin Calcium (Crestor) 10 mg PO HS [facility] Last Admin: 10/29/17 22:14 Dose: 10 mg Vitamin B Complex/Vit C/Folic Acid (Nephro-Anjelica) 1 tab PO 0800 [facility] Last Admin: 10/29/17 10:37 Dose: 1 tab - Labs Labs: 10/29/17 14:45 10/28/17 12:03 APTT 33 SECONDS (21-34) 10/26/17 10:11 Assessment and Plan (1) COPD with acute exacerbation Status: Acute (2) Abdominal pain Status: Acute (3) Diabetic foot ulcer Status: Acute (4) Hypertension Status: Chronic (5) Hypertensive CKD, ESRD on dialysis Status: Chronic
[2017-10-30] MEDS: metroNIDAZOLE IV 500 mg/100 ml 500 MG/100 ML BAG IVPB SCH ×2 (07:03→19:38)
[2017-10-30] MEDS: (Novolog) Insulin Aspart, Recombinant 100 u/ml 10 ml vial SC SCH ×4 (08:35→22:22)
[2017-10-30] MEDS: Multivitamin Vitamin B Complex (Nephro-Vite) Tab PO SCH (08:36)
[2017-10-30] MEDS ORDERED: Iohexol 240 (50 ml) PO ONE ×2 (09:15→10:30)
[2017-10-30] MEDS: NIFEdipine 90 mg ER Tab PO SCH (10:56)
[2017-10-30] MEDS: Pantoprazole 20 mg EC Tab PO SCH (10:58)
--- NOTE | 2017-10-30 12:45 | CP.PCM.PN ---
Subjective - Date & Time of Evaluation Date of Evaluation: 10/30/17 Time of Evaluation: 12:44 - Subjective Subjective: Nephrology Consultation Note: Assessment: Stable COPD exacerbation with pneumonia Acute Gastroenteritis (resolved) Missed HD with hyperkalemia Hyperglycemia Diabetic chronic Kidney Disease (E11.22) Hypertensive Chronic Kidney Disease (I12.0) End stage renal disease (N18.6) dependence on hemodialysis (Z99.2) (MWF) via AVF Anemia (D64.9), Hyperphosphatemia (E83.39), Secondary Hyperparathyroidism (E21.1 ), HTN (I12.0) ex smoker Plan: Will plan for HD tomorrow as ordered per [facility] schedule. Continue with Nephrovite 1 tab/day. PRBC as needed for anemia. on EDMAR increased with dialysis as last Hb 9 Continue with phos binders BP control with meds as ordered. Patient not on RAAS shay as tendency for hyperkalemia. BP was going up again. Plan to resume nifedipine 90 mg home dose Glycemic control, Dialysis consistent diet Further work up/management as per primary team Dose meds/antibiotics for ESRD status. Avoid fleets enema/magnesium based laxatives. pt on steroids and nebs for COPD exac. Pulmonary and cardiology following vascular surgery eval for left arm swelling r/o access outflow stenosis Thanks for allowing me to participate in care of your patient. Will follow patient with you. Please call if any Qs. had d/w team Dr Aurelio Brar Office: [phone] HPI: Pt is a 42 F with hx of ESRD on hemodialysis (MWF) via [facility] @ [facility] , last dialysis Sunday, chronic anemia, hyperphosphatemia, secondary hyperparathyroidism, Diabetes Mellitus, hypertension presented with complaints of feeling sick since sunday with pain abdomen, nausea/vomitting and loose stool Renal consult requested for ESRD management. also reports cough ROS: feels the same, no new complaints except back and abdomen soreness. Physical Examination: General Appearance: comfortable, in no acute respiratory distress, co-operative . Vitals reviewed and noted as below Head; Atraumatic, normocephalic ENT: no ulcers no thrush. Tongue is midline. Oropharynx: no rash or ulcers. EYES: Pupils are equal, round and reactive to light accommodation. Eye muscles and extraocular movement intact. Sclera is anicteric. Neck; supple no lymphadenopathy, no thyromegaly or bruit Lungs: Normal respiratory rate/effort. Breath sounds bilateral equal and clear today, air entry Heart: Normal rate. s1s2 normal. No rub or gallop. Extremities: no edema. No varicose veins Neurological: Patient is alert, awake and oriented to person, place and time. No focal deficit. Strength bilateral appropriate and equal Skin: Warm and dry. Normal turgor. No rash. Palpitation: Normal elasticity for age Abdomen: Abdomen is soft. Bowel sounds +. There is no abdominal tenderness, no guarding/rigidity or organomegaly Psych: normal insight and flat affect/mood MSK: no joint tenderness or swelling. Digits and nails normal, no deformity : kidney or bladder not palpable Access: AVF. LUE swelling noted Labs/imaging reviewed. Past medical history, past surgical history, family history, social history, allergy reviewed and noted as below Family Hx: no hx of CKD. Non contributory Objective - Vital Signs/Intake and Output Vital Signs (last 24 hours): Temp Pulse Resp BP Pulse Ox 98.4 F 78 20 169/74 H 95 10/30/17 08:50 10/30/17 08:50 10/30/17 08:50 10/30/17 10:56 10/30/17 08:50 Intake and Output: 10/30/17 10/30/17 06:59 18:59 Intake Total 170 100 Balance 170 100 - Medications Medications: Current Medications Acetaminophen (Tylenol 325mg Tab) 650 mg PO Q4 PRN PRN Reason: Fever >100.4 F Last Admin: 10/25/17 02:14 Dose: 650 mg Albuterol/Ipratropium (Duoneb 3 Mg/0.5 Mg (3 Ml) Ud) 3 ml INH RQ6 [facility] Last Admin: 10/30/17 08:12 Dose: 3 ml Aspirin (Ecotrin) 81 mg PO DAILY [facility] Last Admin: 10/30/17 10:58 Dose: 81 mg Calcium Acetate (Phoslo) 667 mg PO TIDCC [facility] Last Admin: 10/30/17 08:36 Dose: 667 mg Carvedilol (Coreg) 12.5 mg PO BID [facility] Last Admin: 10/30/17 10:56 Dose: 12.5 mg Clonidine HCl (Catapres) 0.3 mg PO Q8 [facility] Last Admin: 10/30/17 05:08 Dose: 0.3 mg Diphenhydramine HCl (Benadryl) 25 mg PO Q8 PRN PRN Reason: Itching / Pruritus Last Admin: 10/17/17 21:53 Dose: 25 mg Epoetin Cornelius ([facility]) [facility] Guaifenesin/Dextromethorphan (Robitussin Dm) 10 ml PO Q4H PRN PRN Reason: Cough and congestion Last Admin: 10/25/17 09:54 Dose: 10 ml Heparin Sodium (Porcine) (Heparin) 5,000 units SC Q8 [facility] Last Admin: 10/30/17 05:08 Dose: 5,000 units Hydralazine HCl (Apresoline) 10 mg IVP Q6H PRN PRN Reason: SBP > 180 Hydromorphone HCl (Dilaudid) 0.5 mg IVP Q4H PRN PRN Reason: Pain, severe (8-10) Last Admin: 10/30/17 10:58 Dose: 0.5 mg Piperacillin Sod/Tazobactam Sod (Zosyn 2.25 Gm Iv Premix) 2.25 gm in 50 mls @ 100 mls/hr IVPB Q8H [facility] PRN Reason: Protocol Last Admin: 10/30/17 11:00 Dose: 100 mls/hr Vancomycin/Sodium Chloride (Vancomycin 1 Gm/Ns 200 Ml) 1 gm in 200 mls @ 133 mls/hr [place]PB [facility] [place]N Reason: Protocol Stop: 11/07/17 10:31 Last Admin: 10/29/17 13:36 Dose: Not Given Metronidazole (Flagyl) 500 mg in 100 mls @ 100 mls/hr IVPB Q12H [facility] PRN Reason: Protocol Last Admin: 10/30/17 07:03 Dose: 100 mls/hr Insulin Aspart (Novolog) 0 unit SC [facility] PRN Reason: Protocol Last Admin: 10/30/17 08:35 Dose: 2 unit Insulin Glargine (Lantus) 10 unit SC HS [facility] Last Admin: 10/29/17 22:15 Dose: 10 units Metoclopramide HCl (Reglan) 5 mg PO ACHS [facility] Last Admin: 10/30/17 11:03 Dose: 5 mg Nifedipine (Procardia Xl) 90 mg PO DAILY [facility] Last Admin: 10/30/17 10:56 Dose: 90 mg Ondansetron HCl (Zofran Inj) 4 mg IVP Q8H PRN PRN Reason: Nausea/Vomiting Pantoprazole Sodium (Protonix Ec Tab) 20 mg PO DAILY [facility] Last Admin: 10/30/17 10:58 Dose: 20 mg Prednisone (Prednisone Tab) 20 mg PO DAILY [facility] Last Admin: 10/30/17 10:58 Dose: 20 mg Rosuvastatin Calcium (Crestor) 10 mg PO HS [facility] Last Admin: 10/29/17 22:14 Dose: 10 mg Vitamin B Complex/Vit C/Folic Acid (Nephro-Anjelica) 1 tab PO 0800 [facility] Last Admin: 10/30/17 08:36 Dose: 1 tab - Labs Labs: 10/29/17 14:45 10/28/17 12:03 APTT 33 SECONDS (21-34) 10/26/17 10:11
--- NOTE | 2017-10-30 16:14 | CT ---
PROCEDURE: CT Abdomen and Pelvis with contrast HISTORY: Sepsis Negative test (concurrent with this examination). COMPARISON: 10/16/2016 CT abdomen and pelvis TECHNIQUE: Oral contrast only. Radiation dose: Total exam DLP = 1184.83 mGy-cm. This CT exam was performed using one or more of the following dose reduction techniques: Automated exposure control, adjustment of the mA and/or kV according to patient size, and/or use of iterative reconstruction technique. FINDINGS: LOWER THORAX: Trace bilateral pleural effusions. LIVER: Unremarkable. No gross lesion or ductal dilatation. GALLBLADDER AND BILE DUCTS: Status post cholecystectomy. No abnormality is seen in the gallbladder fossa. She PANCREAS: Unremarkable. No gross lesion or ductal dilatation. SPLEEN: Unremarkable. ADRENALS: Unremarkable. No mass. KIDNEYS AND URETERS: Atrophic sac and [place] kidneys. VASCULATURE: Unremarkable. No aortic aneurysm. BOWEL: Unremarkable. No obstruction. No gross mural thickening. APPENDIX: Normal appendix. PERITONEUM: Unremarkable. No free fluid. No free air. LYMPH NODES: Unremarkable. No enlarged lymph nodes. BLADDER: Unremarkable. REPRODUCTIVE: Unremarkable uterus is visualized. Cystic adnexal mass on the left. Likely ovarian cysts. BONES: No acute fracture. OTHER FINDINGS: Stable mass in the right hemipelvis. Cutaneous and subcutaneous edema. This is a chronic finding. IMPRESSION: No acute findings related to/accounting for the clinical presentation. Additional benign and/or incidental findings described above. No significant interval change compared to the prior examination(s).
--- NOTE | 2017-10-30 16:37 | CP.PCM.PN ---
Subjective - Date & Time of Evaluation Date of Evaluation: 10/30/17 Time of Evaluation: 10:45 - Subjective Subjective: PATIENT SEEN AND EXAMINED complaining of generalized aches Patient is afebrile Being treated for pneumonia Denies cough or shortness of breath Status post hemodialysis yesterday Objective - Vital Signs/Intake and Output Vital Signs (last 24 hours): Temp Pulse Resp BP Pulse Ox 98.4 F 78 20 169/74 H 95 10/30/17 08:50 10/30/17 08:50 10/30/17 08:50 10/30/17 10:56 10/30/17 08:50 Intake and Output: 10/30/17 10/30/17 06:59 18:59 Intake Total 170 100 Balance 170 100 - Medications Medications: Current Medications Acetaminophen (Tylenol 325mg Tab) 650 mg PO Q4 PRN PRN Reason: Fever >100.4 F Last Admin: 10/25/17 02:14 Dose: 650 mg Albuterol/Ipratropium (Duoneb 3 Mg/0.5 Mg (3 Ml) Ud) 3 ml INH RQ6 [facility] Last Admin: 10/30/17 13:23 Dose: 3 ml Aspirin (Ecotrin) 81 mg PO DAILY [facility] Last Admin: 10/30/17 10:58 Dose: 81 mg Calcium Acetate (Phoslo) 667 mg PO TIDCC [facility] Last Admin: 10/30/17 13:05 Dose: 667 mg Carvedilol (Coreg) 12.5 mg PO BID [facility] Last Admin: 10/30/17 10:56 Dose: 12.5 mg Clonidine HCl (Catapres) 0.3 mg PO Q8 [facility] Last Admin: 10/30/17 14:11 Dose: 0.3 mg Diphenhydramine HCl (Benadryl) 25 mg PO Q8 PRN PRN Reason: Itching / Pruritus Last Admin: 10/17/17 21:53 Dose: 25 mg Epoetin Cornelius (Procrit) 10,000 unit IV MWF [facility] Guaifenesin/Dextromethorphan (Robitussin Dm) 10 ml PO Q4H PRN PRN Reason: Cough and congestion Last Admin: 10/25/17 09:54 Dose: 10 ml Heparin Sodium (Porcine) (Heparin) 5,000 units SC Q8 [facility] Last Admin: 10/30/17 14:11 Dose: 5,000 units Hydralazine HCl (Apresoline) 10 mg IVP Q6H PRN PRN Reason: SBP > 180 Hydromorphone HCl (Dilaudid) 0.5 mg IVP Q4H PRN PRN Reason: Pain, severe (8-10) Last Admin: 10/30/17 14:32 Dose: 0.5 mg Piperacillin Sod/Tazobactam Sod (Zosyn 2.25 Gm Iv Premix) 2.25 gm in 50 mls @ 100 mls/hr IVPB Q8H [facility] PRN Reason: Protocol Last Admin: 10/30/17 11:00 Dose: 100 mls/hr Vancomycin/Sodium Chloride (Vancomycin 1 Gm/Ns 200 Ml) 1 gm in 200 mls @ 133 mls/hr IVPB MWF [facility] PRN Reason: Protocol Stop: 11/07/17 10:31 Last Admin: 10/29/17 13:36 Dose: Not Given Metronidazole (Flagyl) 500 mg in 100 mls @ 100 mls/hr IVPB Q12H [facility] PRN Reason: Protocol Last Admin: 10/30/17 07:03 Dose: 100 mls/hr Insulin Aspart (Novolog) 0 unit SC ACHS [facility] PRN Reason: Protocol Last Admin: 10/30/17 13:04 Dose: 4 unit Insulin Glargine (Lantus) 10 unit SC [facility] Last Admin: 10/29/17 22:15 Dose: 10 units Metoclopramide HCl (Reglan) 5 mg PO ACHS [facility] Last Admin: 10/30/17 11:03 Dose: 5 mg Nifedipine (Procardia Xl) 90 mg PO DAILY [facility] Last Admin: 10/30/17 10:56 Dose: 90 mg Ondansetron HCl (Zofran Inj) 4 mg IVP Q8H PRN PRN Reason: Nausea/Vomiting Pantoprazole Sodium (Protonix Ec Tab) 20 mg PO DAILY [facility] Last Admin: 10/30/17 10:58 Dose: 20 mg Prednisone (Prednisone Tab) 20 mg PO DAILY [facility] Last Admin: 10/30/17 10:58 Dose: 20 mg Rosuvastatin Calcium (Crestor) 10 mg PO HS [facility] Last Admin: 10/29/17 22:14 Dose: 10 mg Vitamin B Complex/Vit C/Folic Acid (Nephro-Anjelica) 1 tab PO 0800 [facility] Last Admin: 10/30/17 08:36 Dose: 1 tab - Labs Labs: 10/29/17 14:45 10/28/17 12:03 APTT 33 SECONDS (21-34) 10/26/17 10:11 - Head Exam Head Exam: ATRAUMATIC - ENT Exam ENT Exam: Mucous Membranes Moist - Neck Exam Neck Exam: Normal Inspection - Respiratory Exam Respiratory Exam: Clear to Ausculation Bilateral - Cardiovascular Exam Cardiovascular Exam: REGULAR RHYTHM - GI/Abdominal Exam GI & Abdominal Exam: Soft, Normal Bowel Sounds Assessment and Plan (1) Pneumonia Assessment & Plan: continue antibiotics Tapering steroids Continue hemodialysis Status: Acute (2) COPD with acute exacerbation Status: Acute (3) ESRD needing dialysis Status: Acute
--- NOTE | 2017-10-30 20:21 | PN ---
DATE: 10/30/2017 SUBJECTIVE: The patient is experiencing abdominal pain, but no vomiting today and no resistant chest pain. PHYSICAL EXAMINATION: VITAL SIGNS: Blood pressure 169/74, heart rate 78, temperature 98.4, respiration 20. HEENT: Pale conjunctivae. CHEST: Clear. HEART: S1 and S2, regular. ABDOMEN: Mild epigastric tenderness. EXTREMITIES: Trace leg edema. LABORATORY DATA: Today's blood sugars are 233, 182, and 212. ASSESSMENT: 1. Consider non-ST elevation myocardial infarction. 2. End-stage renal disease, on hemodialysis. 3. Hypertension and diabetes mellitus. 4. Chronic obstructive lung disease. 5. Anemia. 6. Recent diarrhea, which has improved. RECOMMENDATIONS: Continue Hydralazine 10 mg intravenous every 6 hours, continue clonidine 0.3 mg every 8 hours, continue Coreg 12.5 mg once a day, Crestor 10 mg once a day, aspirin 81 mg once a day, IV Flagyl at 500 mg every 12 hours. Continue PhosLo one tablet q.i.d., Procardia XL 90 mg once a day, IV vancomycin 1 gm Sunday, Sunday and Sunday and IV Zosyn 2.25 gm every 8 hours, and we will follow the abdomen and pelvis CT scan with oral contrast. That will be performed today. Olayinka Brown MD
--- NOTE | 2017-10-30 20:41 | CP.PCM.PN ---
Subjective - Date & Time of Evaluation Date of Evaluation: 10/30/17 Time of Evaluation: 20:41 - Subjective Subjective: CHIEF COMPLAINTS TODAY : AFEBRILE, CLINICALLY SAME less cough. Denies nausea or vomiting ROS. HEENT : N. Resp : +ve COUGH, wheezing ,pleuritic CP ,or hemoptysis Cardio : No anginal CP, PND, orthopnea, palpitation GI : No abd.pain, n/v ,diarrhea or GI bleeding . [employer] : No headache, vertigo, focal deficit. Musculoskel : No joint swelling , Derm : No rash Psych : Normal affect. Ext : No swelling ,calf pain PE. Pt. is alert awake in no distress. V.S As noted in the chart Head ,ear nose,throat and eyes : Normal. Neck : Supple with normal carotids. Lungs: RHONCHI RT SIDE Heart : S1 & S2 normal . No murmur. Abd : SOFT , MILD TENDERNESS EPIGASTRIUM ,with normal bowel sounds. Neuro : Moves all ext. with no localized deficit. Ext : No edema with intact pulses.Non tender calves Derm : No rashes or decubitus ulcer. LABS/RADIOLOGY: wbc 21.5, H/H 8.5/25.2 PLT 161 bLOOD CULTURES 10/25/17 NEGATIVE FOR 3 DAYS ASSESSMENT SEPSIS/HYPOTENSION PNEUMONIA LEUKOCYTOSIS-SOURCE NOT CLEAR R/O INTRA ABDOMINAL GI INFECTION CRBSI.(PT HAS A PICCLINE )/ ASPIRATION. VOMITING ?GASTROPERESIS/GASTRITIS DM-2 ESRD ON HD MWF. BACKPAIN. /PLAN : CERETAC SCAN R/O OCCULT ABSCESS. PT WENT FOR CT ABDOMEN AND PELVIS-P DECREASING STEROIDS / ? MASKING FEVERS Continue IV vancomycin 1 g post-each hemodialysis mwf x 5 doses 10/26/17. Continue iv Zosyn 2.25mg iv q 8hrly 10/25/17. ADD IV FLAGYL 500MG IV PB Q 12HRLY. 10/29/17 F/U BLOOD WORKS IN AM Objective - Vital Signs/Intake and Output Vital Signs (last 24 hours): Temp Pulse Resp BP Pulse Ox 98.9 F 74 20 189/71 H 97 10/30/17 16:00 10/30/17 16:00 10/30/17 16:00 10/30/17 17:43 10/30/17 16:00 Intake and Output: 10/30/17 10/31/17 18:59 06:59 Intake Total 100 Balance 100 - Medications Medications: Current Medications Acetaminophen (Tylenol 325mg Tab) 650 mg PO Q4 PRN PRN Reason: Fever >100.4 F Last Admin: 10/25/17 02:14 Dose: 650 mg Albuterol/Ipratropium (Duoneb 3 Mg/0.5 Mg (3 Ml) Ud) 3 ml INH RQ6 [facility] Last Admin: 10/30/17 20:39 Dose: 3 ml Aspirin (Ecotrin) 81 mg PO DAILY [facility] Last Admin: 10/30/17 10:58 Dose: 81 mg Calcium Acetate (Phoslo) 667 mg PO TIDCC [facility] Last Admin: 10/30/17 17:44 Dose: 667 mg Carvedilol (Coreg) 12.5 mg PO BID [facility] Last Admin: 10/30/17 17:43 Dose: 12.5 mg Clonidine HCl (Catapres) 0.3 mg PO Q8 [facility] Last Admin: 10/30/17 14:11 Dose: 0.3 mg Diphenhydramine HCl (Benadryl) 25 mg PO Q8 PRN PRN Reason: Itching / Pruritus Last Admin: 10/17/17 21:53 Dose: 25 mg Epoetin Cornelius (Procrit) 10,000 unit IV [facility] Guaifenesin/Dextromethorphan (Robitussin Dm) 10 ml PO Q4H PRN PRN Reason: Cough and congestion Last Admin: 10/25/17 09:54 Dose: 10 ml Heparin Sodium (Porcine) (Heparin) 5,000 units SC Q8 [facility] Last Admin: 10/30/17 14:11 Dose: 5,000 units Hydralazine HCl (Apresoline) 10 mg IVP Q6H PRN PRN Reason: SBP > 180 Hydromorphone HCl (Dilaudid) 0.5 mg IVP Q4H PRN PRN Reason: Pain, severe (8-10) Last Admin: 10/30/17 19:46 Dose: 0.5 mg Vancomycin/Sodium Chloride (Vancomycin 1 Gm/Ns 200 Ml) 1 gm in 200 mls @ 133 mls/hr IVPB [facility] PRN Reason: Protocol Stop: 11/07/17 10:31 Last Admin: 10/29/17 13:36 Dose: Not Given Metronidazole (Flagyl) 500 mg in 100 mls @ 100 mls/hr IVPB Q12H [facility] PRN Reason: Protocol Last Admin: 10/30/17 19:38 Dose: 100 mls/hr Insulin Aspart (Novolog) 0 unit SC ACHS [facility] PRN Reason: Protocol Last Admin: 10/30/17 17:46 Dose: 4 unit Insulin Glargine (Lantus) 10 unit SC HS [facility] Last Admin: 10/29/17 22:15 Dose: 10 units Metoclopramide HCl (Reglan) 5 mg PO ACHS [facility] Last Admin: 10/30/17 17:45 Dose: 5 mg Nifedipine (Procardia Xl) 90 mg PO DAILY [facility] Last Admin: 10/30/17 10:56 Dose: 90 mg Ondansetron HCl (Zofran Inj) 4 mg IVP Q8H PRN PRN Reason: Nausea/Vomiting Pantoprazole Sodium (Protonix Ec Tab) 20 mg PO DAILY [facility] Last Admin: 10/30/17 10:58 Dose: 20 mg Prednisone (Prednisone Tab) 20 mg PO DAILY [facility] Last Admin: 10/30/17 10:58 Dose: 20 mg Rosuvastatin Calcium (Crestor) 10 mg PO HS [facility] Last Admin: 10/29/17 22:14 Dose: 10 mg Vitamin B Complex/Vit C/Folic Acid (Nephro-Anjelica) 1 tab PO 0800 [facility] Last Admin: 10/30/17 08:36 Dose: 1 tab - Labs Labs: 10/29/17 14:45 10/28/17 12:03 APTT 33 SECONDS (21-34) 10/26/17 10:11 Assessment and Plan (1) Sepsis associated hypotension Status: Acute (2) Pneumonia Status: Acute (3) COPD with acute exacerbation Status: Acute (4) Gastroenteritis Status: Acute (5) DM2 (diabetes mellitus, type 2) Status: Chronic (6) ESRD (end stage renal disease) Status: Acute
--- NOTE | 2017-10-30 22:12 | CP.PCM.PN ---
Subjective - Date & Time of Evaluation Date of Evaluation: 10/30/17 Time of Evaluation: 18:40 - Subjective Subjective: PATIENT SEEN AND EXAMINED complaining of generalized aches Patient is afebrile Being treated for pneumonia Denies cough or shortness of breath Status post hemodialysis yesterday Objective - Vital Signs/Intake and Output Vital Signs (last 24 hours): Temp Pulse Resp BP Pulse Ox 98.9 F 74 20 189/71 H 97 10/30/17 16:00 10/30/17 16:00 10/30/17 16:00 10/30/17 17:43 10/30/17 16:00 Intake and Output: 10/30/17 10/31/17 18:59 06:59 Intake Total 100 Balance 100 - Medications Medications: Current Medications Acetaminophen (Tylenol 325mg Tab) 650 mg PO Q4 PRN PRN Reason: Fever >100.4 F Last Admin: 10/25/17 02:14 Dose: 650 mg Albuterol/Ipratropium (Duoneb 3 Mg/0.5 Mg (3 Ml) Ud) 3 ml INH RQ6 [facility] Last Admin: 10/30/17 20:39 Dose: 3 ml Aspirin (Ecotrin) 81 mg PO DAILY [facility] Last Admin: 10/30/17 10:58 Dose: 81 mg Calcium Acetate (Phoslo) 667 mg PO TIDCC [facility] Last Admin: 10/30/17 17:44 Dose: 667 mg Carvedilol (Coreg) 12.5 mg PO BID [facility] Last Admin: 10/30/17 17:43 Dose: 12.5 mg Clonidine HCl (Catapres) 0.3 mg PO Q8 [facility] Last Admin: 10/30/17 14:11 Dose: 0.3 mg Diphenhydramine HCl (Benadryl) 25 mg PO Q8 PRN PRN Reason: Itching / Pruritus Last Admin: 10/17/17 21:53 Dose: 25 mg Epoetin Cornelius (Procrit) 10,000 unit IV MWF [facility] Guaifenesin/Dextromethorphan (Robitussin Dm) 10 ml PO Q4H PRN PRN Reason: Cough and congestion Last Admin: 10/25/17 09:54 Dose: 10 ml Heparin Sodium (Porcine) (Heparin) 5,000 units SC Q8 [facility] Last Admin: 10/30/17 14:11 Dose: 5,000 units Hydralazine HCl (Apresoline) 10 mg IVP Q6H PRN PRN Reason: SBP > 180 Hydromorphone HCl (Dilaudid) 0.5 mg IVP Q4H PRN PRN Reason: Pain, severe (8-10) Last Admin: 10/30/17 19:46 Dose: 0.5 mg Vancomycin/Sodium Chloride (Vancomycin 1 Gm/Ns 200 Ml) 1 gm in 200 mls @ 133 mls/hr IVPB MWF [facility] PRN Reason: Protocol Stop: 11/07/17 10:31 Last Admin: 10/29/17 13:36 Dose: Not Given Metronidazole (Flagyl) 500 mg in 100 mls @ 100 mls/hr IVPB Q12H [facility] PRN Reason: Protocol Last Admin: 10/30/17 19:38 Dose: 100 mls/hr Insulin Aspart (Novolog) 0 unit SC ACHS [facility] PRN Reason: Protocol Last Admin: 10/30/17 17:46 Dose: 4 unit Insulin Glargine (Lantus) 10 unit SC [facility] Last Admin: 10/29/17 22:15 Dose: 10 units Metoclopramide HCl (Reglan) 5 mg PO ACHS [facility] Last Admin: 10/30/17 17:45 Dose: 5 mg Nifedipine (Procardia Xl) 90 mg PO DAILY [facility] Last Admin: 10/30/17 10:56 Dose: 90 mg Ondansetron HCl (Zofran Inj) 4 mg IVP Q8H PRN PRN Reason: Nausea/Vomiting Pantoprazole Sodium (Protonix Ec Tab) 20 mg PO DAILY [facility] Last Admin: 10/30/17 10:58 Dose: 20 mg Prednisone (Prednisone Tab) 20 mg PO DAILY [facility] Last Admin: 10/30/17 10:58 Dose: 20 mg Rosuvastatin Calcium (Crestor) 10 mg PO HS [facility] Last Admin: 10/29/17 22:14 Dose: 10 mg Vitamin B Complex/Vit C/Folic Acid (Nephro-Anjelica) 1 tab PO 0800 [facility] Last Admin: 10/30/17 08:36 Dose: 1 tab - Labs Labs: 10/29/17 14:45 10/28/17 12:03 APTT 33 SECONDS (21-34) 10/26/17 10:11 - Constitutional Appears: No Acute Distress - Head Exam Head Exam: ATRAUMATIC, NORMAL INSPECTION, NORMOCEPHALIC - Eye Exam Eye Exam: EOMI, Normal appearance, PERRL Pupil Exam: NORMAL ACCOMODATION, PERRL - ENT Exam ENT Exam: Mucous Membranes Moist, Normal Exam - Respiratory Exam Respiratory Exam: Clear to Ausculation Bilateral, NORMAL BREATHING PATTERN - Cardiovascular Exam Cardiovascular Exam: REGULAR RHYTHM, +S1, +S2. absent: Murmur Assessment and Plan (1) COPD with acute exacerbation Status: Acute (2) Abdominal pain Status: Acute (3) Diabetic foot ulcer Status: Acute (4) Hypertension Status: Chronic (5) Hypertensive CKD, ESRD on dialysis Status: Chronic
[2017-10-30] MEDS: (Lantus) Insulin Glargine, Recombinant SC SCH (22:25)
[2017-10-31] MEDS: HYDROmorphone 0.5 mg/0.5 ml ISec IVP PRN ×5 (01:30→22:56)
[2017-10-31] MEDS: metroNIDAZOLE IV 500 mg/100 ml 500 MG/100 ML BAG IVPB SCH ×2 (06:37→19:30)
[2017-10-31 08:43] LABS: BASO # 0.1 K/uL (0.0-0.2); BASO % 0.5 % (0.0-2.0); EOS # 0.2 K/uL (0.0-0.7); EOS % 1.2 % (0.0-4.0); HEMOGLOBIN 8.4 g/dL (11.0-16.0); LYMPH # 0.7 K/uL (1.0-4.3); LYMPH % 4.9 % (20.0-40.0); MEAN CELL VOLUME 100.1 fL (81.0-99.0); MEAN CORPUSCULAR HEMOGLOBIN 34.1 pg (27.0-31.0); MEAN PLATELET VOLUME 8.8 fL (7.2-11.7); MONO # 0.5 K/uL (0.0-0.8); MONO % 3.6 % (0.0-10.0); NEUT # 13.6 K/uL (1.8-7.0); NEUT % 89.8 % (50.0-75.0); PLATELET COUNT 142 K/uL (130-400); RBC 2.47 Mil/uL (3.80-5.20); RED CELL DISTRIBUTION WIDTH 17.1 % (11.5-14.5); WHITE BLOOD COUNT 15.2 K/uL (4.8-10.8)
[2017-10-31 08:51] LABS: INR 1.1; PROTHROMBIN TIME 11.6 SECONDS (9.7-12.2)
[2017-10-31 09:08] LABS: ALB/GLOB RATIO 1.2 (1.0-2.1); ALBUMIN 3.9 g/dL (3.5-5.0); ALT/SGPT 37 U/L (9-52); AST/SGOT 25 U/L (14-36); BLOOD UREA NITROGEN 63 mg/dL (7-17); CALCIUM 7.4 mg/dl (8.6-10.4); GFR AFRICAN-AMERICAN 7; GFR NON-AFRICAN AMERICAN 6
[2017-10-31 09:49] LABS: ANISOCYTOSIS SLIGHT; EOSINOPHIL 1 % (0-4); HYPOCHROMIC MODERATE; LYMPHOCYTE 4 % (20-40); MONOCYTE 2 % (0-10); NEUTROPHIL 93 % (50-75); PLATELET ESTIMATE NORMAL (NORMAL); POIKILOCYTOSIS SLIGHT; TOTAL CELLS COUNTED 100
[2017-10-31 09:50] LABS: MICROCYTOSIS SLIGHT
[2017-10-31] MEDS: NIFEdipine 90 mg ER Tab PO SCH (11:16)
[2017-10-31] MEDS: Multivitamin Vitamin B Complex (Nephro-Vite) Tab PO SCH (11:17)
[2017-10-31] MEDS: Pantoprazole 20 mg EC Tab PO SCH (11:17)
[2017-10-31] MEDS: (Novolog) Insulin Aspart, Recombinant 100 u/ml 10 ml vial SC SCH ×4 (11:19→22:52)
[2017-10-31] MEDS: Vancomycin 1 gm/NS 200 ml 1 GM/200 ML BAG IVPB SCH (11:22)
[2017-10-31] MEDS ORDERED: Iohexol 240 (50 ml) ONE (13:51)
[2017-10-31] MEDS ORDERED: HEPARIN-NS 5,000 UNITS/500 ML 5,000 UNIT/500 ML BAG IV ONE (13:52)
[2017-10-31] MEDS ORDERED: ceFAZolin 1 gm in NS 0 GM/0 ML BAG IVPB ONE (13:52)
--- NOTE | 2017-10-31 14:00 | CP.PCM.PN ---
Subjective - Date & Time of Evaluation Date of Evaluation: 10/31/17 Time of Evaluation: 14:00 - Subjective Subjective: CHIEF COMPLAINTS TODAY : AFEBRILE, CLINICALLY SAME FOR OR TODAY FOR LT. ARM SURGERY. F/U HD TODAY ROS. HEENT : N. Resp : +ve COUGH, wheezing ,pleuritic CP ,or hemoptysis Cardio : No anginal CP, PND, orthopnea, palpitation GI : No abd.pain, n/v ,diarrhea or GI bleeding . TOOL COORDINATOR : No headache, vertigo, focal deficit. Musculoskel : No joint swelling , Derm : No rash Psych : Normal affect. Ext : No swelling ,calf pain PE. Pt. is alert awake in no distress. V.S As noted in the chart Head ,ear nose,throat and eyes : Normal. Neck : Supple with normal carotids. Lungs: RHONCHI RT SIDE Heart : S1 & S2 normal . No murmur. Abd : SOFT , MILD TENDERNESS EPIGASTRIUM ,with normal bowel sounds. Neuro : Moves all ext. with no localized deficit. Ext : No edema with intact pulses.Non tender calves Derm : No rashes or decubitus ulcer. LABS/RADIOLOGY: wbc IMPROVING CT OF THE ABDOMEN AND PELVIS- UNREMARKABLE bLOOD CULTURES 10/25/17 NEGATIVE FOR 3 DAYS ASSESSMENT SEPSIS/ S/P HYPOTENSION PNEUMONIA LEUKOCYTOSIS-SOURCE NOT CLEAR CRBSI.(PT HAS A PICCLINE )/ ASPIRATION. VOMITING ?GASTROPERESIS/GASTRITIS DM-2 ESRD ON HD MWF. BACKPAIN. /PLAN : CERETAC SCAN R/O OCCULT ABSCESS. Continue IV vancomycin 1 g post-each hemodialysis mwf x 5 doses 10/26/17. Continue iv Zosyn 2.25mg iv q 8hrly 10/25/17. ON IV FLAGYL 500MG IV PB Q 12HRLY. 10/29/17 CASE DISCUSSED WITH PULMONARY/AND STAFF Objective - Vital Signs/Intake and Output Vital Signs (last 24 hours): Temp Pulse Resp BP Pulse Ox 97.9 F 72 20 177/77 H 99 10/31/17 08:27 10/31/17 08:27 10/31/17 08:27 10/31/17 08:27 10/31/17 08:27 Intake and Output: 10/31/17 10/31/17 06:59 18:59 Intake Total 200 Balance 200 - Medications Medications: Current Medications Acetaminophen (Tylenol 325mg Tab) 650 mg PO Q4 PRN PRN Reason: Fever >100.4 F Last Admin: 10/25/17 02:14 Dose: 650 mg Aspirin (Ecotrin) 81 mg PO DAILY [facility] Last Admin: 10/31/17 11:19 Dose: Not Given Calcium Acetate (Phoslo) 667 mg PO TIDCC [facility] Last Admin: 10/31/17 11:17 Dose: 667 mg Carvedilol (Coreg) 12.5 mg PO BID [facility] Last Admin: 10/31/17 11:20 Dose: Not Given Clonidine HCl (Catapres) 0.3 mg PO Q8 [facility] Last Admin: 10/31/17 06:31 Dose: 0.3 mg Diphenhydramine HCl (Benadryl) 25 mg PO Q8 PRN PRN Reason: Itching / Pruritus Last Admin: 10/17/17 21:53 Dose: 25 mg Epoetin Cornelius (Procrit) 10,000 unit IV [place] [facility] [place] Guaifenesin/Dextromethorphan (Robitussin Dm) 10 ml PO Q4H PRN PRN Reason: Cough and congestion Last Admin: 10/25/17 09:54 Dose: 10 ml Heparin Sodium (Porcine) (Heparin) 5,000 units SC Q8 [facility] Last Admin: 10/30/17 14:11 Dose: 5,000 units Hydralazine HCl (Apresoline) 10 mg IVP Q6H PRN PRN Reason: SBP > 180 Hydromorphone HCl (Dilaudid) 0.5 mg IVP Q4H PRN PRN Reason: Pain, severe (8-10) Last Admin: 10/31/17 11:15 Dose: 0.5 mg Vancomycin/Sodium Chloride (Vancomycin 1 Gm/Ns 200 Ml) 1 gm in 200 mls @ 133 mls/hr IVPB MWF [facility] PRN Reason: Protocol Stop: 11/07/17 10:31 Last Admin: 10/31/17 11:22 Dose: 133 mls/hr Metronidazole (Flagyl) 500 mg in 100 mls @ 100 mls/hr IVPB Q12H [facility] PRN Reason: Protocol Last Admin: 10/31/17 06:37 Dose: 100 mls/hr Insulin Aspart (Novolog) 0 unit SC ACHS [facility] PRN Reason: Protocol Last Admin: 10/31/17 13:28 Dose: Not Given Insulin Glargine (Lantus) 10 unit SC HS [facility] Last Admin: 10/30/17 22:25 Dose: 10 units Metoclopramide HCl (Reglan) 5 mg PO ACHS [facility] Last Admin: 10/31/17 11:18 Dose: 5 mg Nifedipine (Procardia Xl) 90 mg PO DAILY [facility] Last Admin: 10/31/17 11:16 Dose: 90 mg Ondansetron HCl (Zofran Inj) 4 mg IVP Q8H PRN PRN Reason: Nausea/Vomiting Pantoprazole Sodium (Protonix Ec Tab) 20 mg PO DAILY [facility] Last Admin: 10/31/17 11:17 Dose: 20 mg Prednisone (Prednisone Tab) 20 mg PO DAILY [facility] Last Admin: 10/31/17 11:18 Dose: 20 mg Rosuvastatin Calcium (Crestor) 10 mg PO HS [facility] Last Admin: 10/30/17 22:25 Dose: 10 mg Vitamin B Complex/Vit C/Folic Acid (Nephro-Anjelica) 1 tab PO 0800 [facility] Last Admin: 10/31/17 11:17 Dose: 1 tab - Labs Labs: 10/31/17 08:25 10/31/17 08:25 PT 11.6 SECONDS (9.7-12.2) 10/31/17 08:25 INR 1.1 10/31/17 08:25 APTT 35 SECONDS (21-34) H 10/31/17 08:25 Assessment and Plan (1) Sepsis associated hypotension Status: Acute (2) Pneumonia Status: Acute (3) COPD with acute exacerbation Status: Acute (4) Gastroenteritis Status: Acute (5) DM2 (diabetes mellitus, type 2) Status: Chronic (6) ESRD (end stage renal disease) Status: Acute
[2017-10-31] MEDS ORDERED: Propofol 10 mg/ml Inj (20 ML) ONE (14:21)
[2017-10-31] MEDS ORDERED: Midazolam 2 MG/2 ML VIAL ONE (14:21)
[2017-10-31] MEDS ORDERED: Lidocaine Hydrochloride 10 ML INJ ONE (14:38)
[2017-10-31] MEDS ORDERED: Iodixanol 320 MG/ML 200 ML BOTTLE IV ONE (14:51)
--- NOTE | 2017-10-31 15:21 | PCM.SURG1 ---
Surgeon's Initial Post Op Note - Surgeon's Notes Surgeon: MD Deng Electrical Wiring Lineman: TING HaroY2 Pre-Operative Diagnosis: Left arm swelling Operative Findings: central venous stenosis Post-Operative Diagnosis: central venous stenosis Operation Performed: Balloon angioplasty 8mm Specimen/Specimens Removed: n/a Estimated Blood Loss: EBL {In ML}: 30 Date of Surgery/Procedure: 10/31/17 Time of Surgery/Procedure: 14:45
--- NOTE | 2017-10-31 15:35 | CP.PCM.PN ---
Subjective - Date & Time of Evaluation Date of Evaluation: 10/31/17 Time of Evaluation: 11:45 - Subjective Subjective: patient seen and examined Still complaining of generalized aches patient is afebrile No shortness of breath Denies cough Objective - Vital Signs/Intake and Output Vital Signs (last 24 hours): Temp Pulse Resp BP Pulse Ox 97.9 F 72 20 177/77 H 99 10/31/17 08:27 10/31/17 08:27 10/31/17 08:27 10/31/17 08:27 10/31/17 08:27 Intake and Output: 10/31/17 10/31/17 06:59 18:59 Intake Total 200 50 Balance 200 50 - Medications Medications: Current Medications Acetaminophen (Tylenol 325mg Tab) 650 mg PO Q4 PRN PRN Reason: Fever >100.4 F Last Admin: 10/25/17 02:14 Dose: 650 mg Aspirin (Ecotrin) 81 mg PO DAILY [facility] Last Admin: 10/31/17 11:19 Dose: Not Given Calcium Acetate (Phoslo) 667 mg PO TIDCC [facility] Last Admin: 10/31/17 11:17 Dose: 667 mg Carvedilol (Coreg) 12.5 mg PO BID [facility] Last Admin: 10/31/17 11:20 Dose: Not Given Clonidine HCl (Catapres) 0.3 mg PO Q8 [facility] Last Admin: 10/31/17 06:31 Dose: 0.3 mg Diphenhydramine HCl (Benadryl) 25 mg PO Q8 PRN PRN Reason: Itching / Pruritus Last Admin: 10/17/17 21:53 Dose: 25 mg Epoetin Cornelius (Procrit) 10,000 unit IV [facility] [place] [place] Guaifenesin/Dextromethorphan (Robitussin Dm) 10 ml PO Q4H PRN PRN Reason: Cough and congestion Last Admin: 10/25/17 09:54 Dose: 10 ml Heparin Sodium (Porcine) (Heparin) 5,000 units SC Q8 [facility] Last Admin: 10/30/17 14:11 Dose: 5,000 units Hydralazine HCl (Apresoline) 10 mg IVP Q6H PRN PRN Reason: SBP > 180 Hydromorphone HCl (Dilaudid) 0.5 mg IVP Q4H PRN PRN Reason: Pain, severe (8-10) Last Admin: 10/31/17 11:15 Dose: 0.5 mg Vancomycin/Sodium Chloride (Vancomycin 1 Gm/Ns 200 Ml) 1 gm in 200 mls @ 133 mls/hr IVPB MWF [facility] PRN Reason: Protocol Stop: 11/07/17 10:31 Last Admin: 10/31/17 11:22 Dose: 133 mls/hr Metronidazole (Flagyl) 500 mg in 100 mls @ 100 mls/hr IVPB Q12H [facility] PRN Reason: Protocol Last Admin: 10/31/17 06:37 Dose: 100 mls/hr Insulin Aspart (Novolog) 0 unit SC [facility] PRN Reason: Protocol Last Admin: 10/31/17 13:28 Dose: Not Given Insulin Glargine (Lantus) 10 unit SC [facility] Last Admin: 10/30/17 22:25 Dose: 10 units Metoclopramide HCl (Reglan) 5 mg PO ACHS [facility] Last Admin: 10/31/17 11:18 Dose: 5 mg Nifedipine (Procardia Xl) 90 mg PO DAILY [facility] Last Admin: 10/31/17 11:16 Dose: 90 mg Ondansetron HCl (Zofran Inj) 4 mg IVP Q8H PRN PRN Reason: Nausea/Vomiting Pantoprazole Sodium (Protonix Ec Tab) 20 mg PO DAILY [facility] Last Admin: 10/31/17 11:17 Dose: 20 mg Prednisone (Prednisone Tab) 20 mg PO DAILY [facility] Last Admin: 10/31/17 11:18 Dose: 20 mg Rosuvastatin Calcium (Crestor) 10 mg PO [facility] Last Admin: 10/30/17 22:25 Dose: 10 mg Vitamin B Complex/Vit C/Folic Acid (Nephro-Anjelica) 1 tab PO 0800 [facility] Last Admin: 10/31/17 11:17 Dose: 1 tab - Labs Labs: 10/31/17 08:25 10/31/17 08:25 PT 11.6 SECONDS (9.7-12.2) 10/31/17 08:25 INR 1.1 10/31/17 08:25 APTT 35 SECONDS (21-34) H 10/31/17 08:25 - Head Exam Head Exam: ATRAUMATIC, NORMOCEPHALIC - ENT Exam ENT Exam: Mucous Membranes Moist - Respiratory Exam Respiratory Exam: Decreased Breath Sounds - Cardiovascular Exam Cardiovascular Exam: REGULAR RHYTHM - GI/Abdominal Exam GI & Abdominal Exam: Soft, Normal Bowel Sounds Assessment and Plan (1) Pneumonia Assessment & Plan: Continue antibiotics Status: Acute (2) COPD with acute exacerbation Assessment & Plan: Nebulizer treatment taper Prednisone Status: Acute (3) ESRD needing dialysis Status: Acute
--- NOTE | 2017-10-31 15:56 | CP.PCM.PN ---
Subjective - Date & Time of Evaluation Date of Evaluation: 10/31/17 Time of Evaluation: 19:45 - Subjective Subjective: patient seen and examined Still complaining of generalized aches patient is afebrile, wbc persistant, blood sugars coming down less shortness of breath Denies cough pt refused cardiac cath Objective - Vital Signs/Intake and Output Vital Signs (last 24 hours): Temp Pulse Resp BP Pulse Ox 98.3 F 74 12 158/56 H 96 10/31/17 15:20 10/31/17 15:36 10/31/17 15:36 10/31/17 15:36 10/31/17 15:36 Intake and Output: 10/31/17 10/31/17 06:59 18:59 Intake Total 200 50 Balance 200 50 - Medications Medications: Current Medications Acetaminophen (Tylenol 325mg Tab) 650 mg PO Q4 PRN PRN Reason: Fever >100.4 F Last Admin: 10/25/17 02:14 Dose: 650 mg Aspirin (Ecotrin) 81 mg PO DAILY [facility] Last Admin: 10/31/17 11:19 Dose: Not Given Calcium Acetate (Phoslo) 667 mg PO TIDCC [facility] Last Admin: 10/31/17 11:17 Dose: 667 mg Carvedilol (Coreg) 12.5 mg PO BID [facility] Last Admin: 10/31/17 11:20 Dose: Not Given Clonidine HCl (Catapres) 0.3 mg PO Q8 [facility] Last Admin: 10/31/17 15:38 Dose: Not Given Diphenhydramine HCl (Benadryl) 25 mg PO Q8 PRN PRN Reason: Itching / Pruritus Last Admin: 10/17/17 21:53 Dose: 25 mg Epoetin Cornelius (Procrit) 10,000 unit IV MWF [facility] Guaifenesin/Dextromethorphan (Robitussin Dm) 10 ml PO Q4H PRN PRN Reason: Cough and congestion Last Admin: 10/25/17 09:54 Dose: 10 ml Heparin Sodium (Porcine) (Heparin) 5,000 units SC Q8 [facility] Last Admin: 10/30/17 14:11 Dose: 5,000 units Hydralazine HCl (Apresoline) 10 mg IVP Q6H PRN PRN Reason: SBP > 180 Hydromorphone HCl (Dilaudid) 0.5 mg IVP Q4H PRN PRN Reason: Pain, severe (8-10) Last Admin: 10/31/17 11:15 Dose: 0.5 mg Vancomycin/Sodium Chloride (Vancomycin 1 Gm/Ns 200 Ml) 1 gm in 200 mls @ 133 mls/hr IVPB MWF [facility] PRN Reason: Protocol Stop: 11/07/17 10:31 Last Admin: 10/31/17 11:22 Dose: 133 mls/hr Metronidazole (Flagyl) 500 mg in 100 mls @ 100 mls/hr IVPB Q12H [facility] PRN Reason: Protocol Last Admin: 10/31/17 06:37 Dose: 100 mls/hr Insulin Aspart (Novolog) 0 unit SC ACHS [facility] PRN Reason: Protocol Last Admin: 10/31/17 13:28 Dose: Not Given Insulin Glargine (Lantus) 10 unit SC [facility] Last Admin: 10/30/17 22:25 Dose: 10 units Metoclopramide HCl (Reglan) 5 mg PO [facility] Last Admin: 10/31/17 11:18 Dose: 5 mg Nifedipine (Procardia Xl) 90 mg PO DAILY [facility] Last Admin: 10/31/17 11:16 Dose: 90 mg Ondansetron HCl (Zofran Inj) 4 mg IVP Q8H PRN PRN Reason: Nausea/Vomiting Pantoprazole Sodium (Protonix Ec Tab) 20 mg PO DAILY [facility] Last Admin: 10/31/17 11:17 Dose: 20 mg Prednisone (Prednisone Tab) 20 mg PO DAILY [facility] Last Admin: 10/31/17 11:18 Dose: 20 mg Rosuvastatin Calcium (Crestor) 10 mg PO [facility] Last Admin: 10/30/17 22:25 Dose: 10 mg Vitamin B Complex/Vit C/Folic Acid (Nephro-Anjelica) 1 tab PO 0800 [facility] Last Admin: 10/31/17 11:17 Dose: 1 tab - Labs Labs: 10/31/17 08:25 10/31/17 08:25 PT 11.6 SECONDS (9.7-12.2) 10/31/17 08:25 INR 1.1 10/31/17 08:25 APTT 35 SECONDS (21-34) H 10/31/17 08:25 - Constitutional Appears: No Acute Distress - Head Exam Head Exam: ATRAUMATIC, NORMAL INSPECTION, NORMOCEPHALIC - ENT Exam ENT Exam: Mucous Membranes Moist, Normal Exam - Neck Exam Neck Exam: Full ROM, Normal Inspection. absent: Lymphadenopathy - Respiratory Exam Respiratory Exam: Clear to Ausculation Bilateral, NORMAL BREATHING PATTERN - Cardiovascular Exam Cardiovascular Exam: REGULAR RHYTHM, +S1, +S2. absent: Murmur - GI/Abdominal Exam GI & Abdominal Exam: Soft, Normal Bowel Sounds. absent: Tenderness - Rectal Exam Rectal Exam: Deferred - Neurological Exam Neurological Exam: Alert, Awake, CN II-XII Intact, Normal Gait, Oriented x3 - Psychiatric Exam Psychiatric exam: Normal Affect, Normal Mood Assessment and Plan (1) COPD with acute exacerbation Status: Acute (2) Abdominal pain Status: Acute (3) Diabetic foot ulcer Status: Acute (4) Hypertension Status: Chronic (5) Hypertensive CKD, ESRD on dialysis Status: Chronic
--- NOTE | 2017-10-31 16:26 | CP.PCM.PN ---
Subjective - Date & Time of Evaluation Date of Evaluation: 10/31/17 Time of Evaluation: 13:00 - Subjective Subjective: patient M bed complaining of pain on the left arm and swollen No nausea or vomiting Objective - Vital Signs/Intake and Output Vital Signs (last 24 hours): Temp Pulse Resp BP Pulse Ox 98.3 F 72 11 L 166/79 H 95 10/31/17 15:20 10/31/17 15:50 10/31/17 15:50 10/31/17 15:50 10/31/17 15:50 Intake and Output: 10/31/17 10/31/17 06:59 18:59 Intake Total 200 80 Balance 200 80 - Medications Medications: Current Medications Acetaminophen (Tylenol 325mg Tab) 650 mg PO Q4 PRN PRN Reason: Fever >100.4 F Last Admin: 10/25/17 02:14 Dose: 650 mg Aspirin (Ecotrin) 81 mg PO DAILY [facility] Last Admin: 10/31/17 11:19 Dose: Not Given Calcium Acetate (Phoslo) 667 mg PO TIDCC [facility] Last Admin: 10/31/17 11:17 Dose: 667 mg Carvedilol (Coreg) 12.5 mg PO BID [facility] Last Admin: 10/31/17 11:20 Dose: Not Given Clonidine HCl (Catapres) 0.3 mg PO Q8 [facility] Last Admin: 10/31/17 15:38 Dose: Not Given Diphenhydramine HCl (Benadryl) 25 mg PO Q8 PRN PRN Reason: Itching / Pruritus Last Admin: 10/17/17 21:53 Dose: 25 mg Epoetin Cornelius (Procrit) 10,000 unit IV [facility] [place] Guaifenesin/Dextromethorphan (Robitussin Dm) 10 ml PO Q4H PRN PRN Reason: Cough and congestion Last Admin: 10/25/17 09:54 Dose: 10 ml Heparin Sodium (Porcine) (Heparin) 5,000 units SC Q8 [facility] Last Admin: 10/30/17 14:11 Dose: 5,000 units Hydralazine HCl (Apresoline) 10 mg IVP Q6H PRN PRN Reason: SBP > 180 Hydromorphone HCl (Dilaudid) 0.5 mg IVP Q4H PRN PRN Reason: Pain, severe (8-10) Last Admin: 10/31/17 11:15 Dose: 0.5 mg Vancomycin/Sodium Chloride (Vancomycin 1 Gm/Ns 200 Ml) 1 gm in 200 mls @ 133 mls/hr IVPB MWF [facility] PRN Reason: Protocol Stop: 11/07/17 10:31 Last Admin: 10/31/17 11:22 Dose: 133 mls/hr Metronidazole (Flagyl) 500 mg in 100 mls @ 100 mls/hr IVPB Q12H [facility] PRN Reason: Protocol Last Admin: 10/31/17 06:37 Dose: 100 mls/hr Insulin Aspart (Novolog) 0 unit SC ACHS [facility] PRN Reason: Protocol Last Admin: 10/31/17 13:28 Dose: Not Given Insulin Glargine (Lantus) 10 unit SC [facility] Last Admin: 10/30/17 22:25 Dose: 10 units Metoclopramide HCl (Reglan) 5 mg PO ACHS [facility] Last Admin: 10/31/17 11:18 Dose: 5 mg Nifedipine (Procardia Xl) 90 mg PO DAILY [facility] Last Admin: 10/31/17 11:16 Dose: 90 mg Ondansetron HCl (Zofran Inj) 4 mg IVP Q8H PRN PRN Reason: Nausea/Vomiting Pantoprazole Sodium (Protonix Ec Tab) 20 mg PO DAILY [facility] Last Admin: 10/31/17 11:17 Dose: 20 mg Prednisone (Prednisone Tab) 20 mg PO DAILY [facility] Last Admin: 10/31/17 11:18 Dose: 20 mg Rosuvastatin Calcium (Crestor) 10 mg PO [facility] Last Admin: 10/30/17 22:25 Dose: 10 mg Vitamin B Complex/Vit C/Folic Acid (Nephro-Anjelica) 1 tab PO 0800 [facility] Last Admin: 10/31/17 11:17 Dose: 1 tab - Labs Labs: 10/31/17 08:25 10/31/17 08:25 PT 11.6 SECONDS (9.7-12.2) 10/31/17 08:25 INR 1.1 10/31/17 08:25 APTT 35 SECONDS (21-34) H 10/31/17 08:25 - Constitutional Appears: No Acute Distress - Eye Exam Eye Exam: Conjunctival injection - ENT Exam ENT Exam: Mucous Membranes Moist - Respiratory Exam Respiratory Exam: absent: Chest Wall Tenderness, NORMAL BREATHING PATTERN - GI/Abdominal Exam GI & Abdominal Exam: Soft, Normal Bowel Sounds - Extremities Exam Extremities Exam: absent: Calf Tenderness - Back Exam Back Exam: absent: CVA tenderness (L), CVA tenderness (R) - Neurological Exam Neurological Exam: Alert - Psychiatric Exam Psychiatric exam: Normal Affect - Skin Skin Exam: absent: Cyanosis Assessment and Plan (1) CKD (chronic kidney disease) requiring chronic dialysis Assessment & Plan: esrd COPD exacerbation with pneumonia Acute Gastroenteritis (resolved) Missed HD with hyperkalemia Hyperglycemia Diabetic chronic Kidney Disease (E11.22) Hypertensive Chronic Kidney Disease (I12.0) End stage renal disease (N18.6) dependence on hemodialysis (Z99.2) (MWF) via AVF Anemia (D64.9), Hyperphosphatemia (E83.39), Secondary Hyperparathyroidism (E21.1 ), HTN (I12.0) ex smoker Plan: Will plan for HD today as ordered per MWF schedule. Continue with Nephrovite 1 tab/day. PRBC as needed for anemia. on EDMAR increased with dialysis as last Hb 9 Continue with phos binders BP control with meds as ordered. Patient not on RAAS shay as tendency for hyperkalemia. BP was going up again. Plan to resume nifedipine 90 mg home dose Glycemic control, Dialysis consistent diet Further work up/management as per primary team Dose meds/antibiotics for ESRD status. Avoid fleets enema/magnesium based laxatives. pt on steroids and nebs for COPD exac. Pulmonary and cardiology following vascular surgery eval for left arm swelling r/o access outflow stenosis patient is going for surgery on the left arm. And also hemodialysis to follow later on Status: Acute (2) Diabetic gastroparesis Status: Chronic (3) Hypertensive CKD, ESRD on dialysis Status: Chronic
--- NOTE | 2017-10-31 16:58 | RAD ---
PROCEDURE: Intraoperative Fluoroscopy. HISTORY: LEFT ARM BALLOON DILATATION FINDINGS: Fluoroscopic assistance was provided for left upper extremity angiogram. Please refer to the operative report from STUART Hernandes.
[2017-10-31] MEDS: Epoetin Alfa 10,000 unit/ml Dialysis IV SCH (19:35)
[2017-10-31] MEDS: (Lantus) Insulin Glargine, Recombinant SC SCH (22:58)
--- NOTE | 2017-11-01 01:52 | OP ---
PROCEDURE DATE: 10/31/2017 PREOPERATIVE DIAGNOSIS: Left arm swelling and central vein stenosis. PROCEDURE CARRIED OUT: Fistulogram of left arm and balloon angioplasty of left subclavian vein stenosis. SURGEON: Marc Vilchis Jr., MD ORDERING BOX OPERATOR: Dr. Anglin. ANESTHESIOLOGIST: Dr. Peters. TYPE OF ANESTHESIA: Local with sedation. INDICATIONS: The patient is a young woman with renal insufficiency, on dialysis, who has had multiple interventions on her left arm. 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 OPERATIVE FINDINGS: 1. The arterial anastomosis is widely patent. 2. The fistula itself had some areas of stenosis and aneurysmal dilatation. 3. Central vein just has clavicle, subclavian vein was tightly stenosed over 90%. This was dilated with an 8 mm balloon with excellent cosmetic results and brisk resolution of flow. The rest of the intraoperative findings were unremarkable. DESCRIPTION OF PROCEDURE: The patient was given local anesthesia. The fistula was punctured with micropuncture technique, and the guidewire was advanced centrally. A 5-Tunisian sheath, and eventually, a 6-Tunisian sheath was placed. The lesion was crossed with the use of Glidewire and a Berenstein catheter. This was subsequently exchanged for another wire. Then we dilated with an 8 mm balloon and pre and post pictures were taken which showed a satisfactory improvement. Given the patient's condition and age, I was reluctant to place a stenosis. Marc Vilchis Jr., MD
[2017-11-01] MEDS: HYDROmorphone 0.5 mg/0.5 ml ISec IVP PRN ×5 (04:52→22:37)
[2017-11-01] MEDS: metroNIDAZOLE IV 500 mg/100 ml 500 MG/100 ML BAG IVPB SCH ×2 (07:49→19:33)
[2017-11-01] MEDS: Multivitamin Vitamin B Complex (Nephro-Vite) Tab PO SCH (07:52)
[2017-11-01] MEDS: (Novolog) Insulin Aspart, Recombinant 100 u/ml 10 ml vial SC SCH ×4 (08:20→21:47)
[2017-11-01] MEDS: NIFEdipine 90 mg ER Tab PO SCH (09:19)
[2017-11-01] MEDS: Pantoprazole 20 mg EC Tab PO SCH (11:18)
[2017-11-01] MEDS: guaiFENesin DM 200 mg-20 mg/10 ml UD PO PRN (11:25)
--- NOTE | 2017-11-01 11:44 | CP.PCM.PN ---
Subjective - Date & Time of Evaluation Date of Evaluation: 11/01/17 Time of Evaluation: 06:55 - Subjective Subjective: SURGERY NOTE FOR DR. BOJORQUEZ 42F seen and examined at bedside. No acute events overnight. She denies arm pain. She is s/p dialysis. Objective - Vital Signs/Intake and Output Vital Signs (last 24 hours): Temp Pulse Resp BP Pulse Ox 98.9 F 79 20 161/67 H 97 11/01/17 09:46 11/01/17 09:46 11/01/17 09:46 11/01/17 09:46 11/01/17 04:22 Intake and Output: 11/01/17 11/01/17 06:59 18:59 Intake Total 120 Balance 120 - Medications Medications: Current Medications Acetaminophen (Tylenol 325mg Tab) 650 mg PO Q4 PRN PRN Reason: Fever >100.4 F Last Admin: 10/25/17 02:14 Dose: 650 mg Aspirin (Ecotrin) 81 mg PO DAILY [facility] Last Admin: 11/01/17 09:12 Dose: 81 mg Calcium Acetate (Phoslo) 667 mg PO TIDCC [facility] Last Admin: 11/01/17 11:21 Dose: 667 mg Carvedilol (Coreg) 12.5 mg PO BID [facility] Last Admin: 11/01/17 09:12 Dose: 12.5 mg Clonidine HCl (Catapres) 0.3 mg PO Q8 [facility] Last Admin: 11/01/17 06:42 Dose: 0.3 mg Diphenhydramine HCl (Benadryl) 25 mg PO Q8 PRN PRN Reason: Itching / Pruritus Last Admin: 10/17/17 21:53 Dose: 25 mg Epoetin Cornelius (Procrit) 10,000 unit IV MWF [facility] Last Admin: 10/31/17 19:35 Dose: 10,000 unit Guaifenesin/Dextromethorphan (Robitussin Dm) 10 ml PO Q4H PRN PRN Reason: Cough and congestion Last Admin: 11/01/17 11:25 Dose: 10 ml Heparin Sodium (Porcine) (Heparin) 5,000 units SC Q8 [facility] Last Admin: 10/30/17 14:11 Dose: 5,000 units Hydralazine HCl (Apresoline) 10 mg IVP Q6H PRN PRN Reason: SBP > 180 Hydralazine HCl (Apresoline) 25 mg PO Q8 [facility] Last Admin: 11/01/17 06:42 Dose: 25 mg Hydromorphone HCl (Dilaudid) 0.5 mg IVP Q4H PRN PRN Reason: Pain, severe (8-10) Last Admin: 11/01/17 09:07 Dose: 0.5 mg Vancomycin/Sodium Chloride (Vancomycin 1 Gm/Ns 200 Ml) 1 gm in 200 mls @ 133 mls/hr IVPB MWF [facility] PRN Reason: Protocol Stop: 11/07/17 10:31 Last Admin: 10/31/17 11:22 Dose: 133 mls/hr Metronidazole (Flagyl) 500 mg in 100 mls @ 100 mls/hr IVPB Q12H [facility] PRN Reason: Protocol Last Admin: 11/01/17 07:49 Dose: 100 mls/hr Insulin Aspart (Novolog) 0 unit SC ACHS [facility] PRN Reason: Protocol Last Admin: 11/01/17 08:20 Dose: 4 unit Insulin Glargine (Lantus) 10 unit SC [facility] Last Admin: 10/31/17 22:58 Dose: 10 units Metoclopramide HCl (Reglan) 5 mg PO ACHS [facility] Last Admin: 11/01/17 11:24 Dose: 5 mg Nifedipine (Procardia Xl) 90 mg PO DAILY [facility] Last Admin: 11/01/17 09:19 Dose: 90 mg Ondansetron HCl (Zofran Inj) 4 mg IVP Q8H PRN PRN Reason: Nausea/Vomiting Pantoprazole Sodium (Protonix Ec Tab) 20 mg PO DAILY [facility] Last Admin: 11/01/17 11:18 Dose: 20 mg Prednisone (Prednisone Tab) 20 mg PO DAILY [facility] Last Admin: 11/01/17 09:19 Dose: 20 mg Rosuvastatin Calcium (Crestor) 10 mg PO HS [facility] Last Admin: 10/31/17 22:56 Dose: 10 mg Vitamin B Complex/Vit C/Folic Acid (Nephro-Anjelica) 1 tab PO 0800 [facility] Last Admin: 11/01/17 07:52 Dose: 1 tab - Labs Labs: 10/31/17 08:25 10/31/17 08:25 PT 11.6 SECONDS (9.7-12.2) 06/27/18 08:25 INR 1.1 10/31/17 08:25 APTT 35 SECONDS (21-34) H 10/31/17 08:25 - Constitutional Appears: Non-toxic, No Acute Distress - Respiratory Exam Respiratory Exam: Clear to Ausculation Bilateral, NORMAL BREATHING PATTERN - Cardiovascular Exam Cardiovascular Exam: REGULAR RHYTHM, +S1, +S2 - GI/Abdominal Exam GI & Abdominal Exam: Soft. absent: Distended, Firm, Guarding, Rigid, Tenderness , Rebound - Extremities Exam Extremities Exam: absent: Pedal Edema, Tenderness Additional comments: left arm site of operation CDI - Neurological Exam Neurological Exam: Alert, Awake Assessment and Plan - Assessment and Plan (Free Text) Assessment: 42F s/p fistulagram - with 8mm balloon angioplasty POD#1 Plan: - Monitor for arm swelling - continue dialysis - no further surgical intervention Further recs discuss with Dr. Deng Haro, PGY2
--- NOTE | 2017-11-01 14:02 | CP.PCM.PN ---
Subjective - Date & Time of Evaluation Date of Evaluation: 11/01/17 Time of Evaluation: 14:00 - Subjective Subjective: renal follow up note Nephrology Consultation Note: Assessment: Stable COPD exacerbation with pneumonia Acute Gastroenteritis (resolved) Missed HD with hyperkalemia Hyperglycemia Diabetic chronic Kidney Disease (E11.22) Hypertensive Chronic Kidney Disease (I12.0) End stage renal disease (N18.6) dependence on hemodialysis (Z99.2) (MWF) via AVF Anemia (D64.9), Hyperphosphatemia (E83.39), Secondary Hyperparathyroidism (E21.1 ), HTN (I12.0) ex smoker Plan: Will plan for HD per MWF schedule. Continue with Nephrovite 1 tab/day. PRBC as needed for anemia. on EDMAR with dialysis Continue with phos binders BP control with meds as ordered. Glycemic control, Dialysis consistent diet Further work up/management as per primary team Dose meds/antibiotics for ESRD status. Avoid fleets enema/magnesium based laxatives. pt on steroids and nebs for COPD exac. Pulmonary and cardiology following vascular surgery eval for left arm swelling r/o access outflow stenosis s/p angioplasty Physical Examination: General Appearance: comfortable, in no acute respiratory distress, co-operative . Vitals reviewed and noted as below Head; Atraumatic, normocephalic ENT: no ulcers no thrush. Tongue is midline. Oropharynx: no rash or ulcers. EYES: Eye muscles and extraocular movement intact. Sclera is anicteric. Neck; supple Lungs: Normal respiratory rate/effort. Breath sounds bilateral equal and clear today, air entry Heart: Normal rate. s1s2 normal. No rub or gallop. Extremities: no edema. No varicose veins Neurological: Patient is alert, awake and oriented to person, place and time. No focal deficit. Strength bilateral appropriate and equal Skin: Warm and dry. Normal turgor. No rash. Abdomen: Abdomen is soft. Bowel sounds +. There is no abdominal tenderness, no guarding/rigidity or organomegaly Psych: normal insight and flat affect/mood MSK: no joint tenderness or swelling. Access: AVF Objective - Vital Signs/Intake and Output Vital Signs (last 24 hours): Temp Pulse Resp BP Pulse Ox 98.9 F 79 20 161/67 H 97 11/01/17 09:46 11/01/17 09:46 11/01/17 09:46 11/01/17 09:46 11/01/17 04:22 Intake and Output: 11/01/17 11/01/17 06:59 18:59 Intake Total 120 Balance 120 - Medications Medications: Current Medications Acetaminophen (Tylenol 325mg Tab) 650 mg PO Q4 PRN PRN Reason: Fever >100.4 F Last Admin: 10/25/17 02:14 Dose: 650 mg Aspirin (Ecotrin) 81 mg PO DAILY [facility] Last Admin: 11/01/17 09:12 Dose: 81 mg Calcium Acetate (Phoslo) 667 mg PO TIDCC [facility] Last Admin: 11/01/17 11:21 Dose: 667 mg Carvedilol (Coreg) 12.5 mg PO BID [facility] Last Admin: 11/01/17 09:12 Dose: 12.5 mg Clonidine HCl (Catapres) 0.3 mg PO Q8 [facility] Last Admin: 11/01/17 13:26 Dose: 0.3 mg Diphenhydramine HCl (Benadryl) 25 mg PO Q8 PRN PRN Reason: Itching / Pruritus Last Admin: 10/17/17 21:53 Dose: 25 mg Epoetin Cornelius (Procrit) 10,000 [place] [facility] Admin: 10/31/17 19:35 Dose: 10,000 unit Guaifenesin/Dextromethorphan (Robitussin Dm) 10 ml PO Q4H PRN PRN Reason: Cough and congestion Last Admin: 11/01/17 11:25 Dose: 10 ml Heparin Sodium (Porcine) (Heparin) 5,000 units SC Q8 [facility] Last Admin: 11/01/17 13:28 Dose: 5,000 units Hydralazine HCl (Apresoline) 10 mg IVP Q6H PRN PRN Reason: SBP > 180 Hydralazine HCl (Apresoline) 25 mg PO Q8 [facility] Last Admin: 11/01/17 13:26 Dose: 25 mg Hydromorphone HCl (Dilaudid) 0.5 mg IVP Q4H PRN PRN Reason: Pain, severe (8-10) Last Admin: 11/01/17 13:21 Dose: 0.5 mg Vancomycin/Sodium Chloride (Vancomycin 1 Gm/Ns 200 Ml) 1 gm in 200 mls @ 133 mls/hr IVPB MWF [facility] PRN Reason: Protocol Stop: 11/07/17 10:31 Last Admin: 10/31/17 11:22 Dose: 133 mls/hr Metronidazole (Flagyl) 500 mg in 100 mls @ 100 mls/hr IVPB Q12H [facility] PRN Reason: Protocol Last Admin: 11/01/17 07:49 Dose: 100 mls/hr Insulin Aspart (Novolog) 0 unit SC ACHS [facility] PRN Reason: Protocol Last Admin: 11/01/17 13:32 Dose: 4 unit Insulin Glargine (Lantus) 10 unit SC HS [facility] Last Admin: 10/31/17 22:58 Dose: 10 units Metoclopramide HCl (Reglan) 5 mg PO [facility] Last Admin: 11/01/17 11:24 Dose: 5 mg Nifedipine (Procardia Xl) 90 mg PO DAILY [facility] Last Admin: 11/01/17 09:19 Dose: 90 mg Ondansetron HCl (Zofran Inj) 4 mg IVP Q8H PRN PRN Reason: Nausea/Vomiting Pantoprazole Sodium (Protonix Ec Tab) 20 mg PO DAILY [facility] Last Admin: 11/01/17 11:18 Dose: 20 mg Prednisone (Prednisone Tab) 20 mg PO DAILY [facility] Last Admin: 11/01/17 09:19 Dose: 20 mg Rosuvastatin Calcium (Crestor) 10 mg PO HS [facility] Last Admin: 10/31/17 22:56 Dose: 10 mg Vitamin B Complex/Vit C/Folic Acid (Nephro-Anjelica) 1 tab PO 0800 [facility] Last Admin: 11/01/17 07:52 Dose: 1 tab - Labs Labs: 10/31/17 08:25 10/31/17 08:25 PT 11.6 SECONDS (9.7-12.2) 10/31/17 08:25 INR 1.1 10/31/17 08:25 APTT 35 SECONDS (21-34) H 10/31/17 08:25
--- NOTE | 2017-11-01 16:02 | CP.PCM.PN ---
Subjective - Date & Time of Evaluation Date of Evaluation: 11/01/17 Time of Evaluation: 20:00 - Subjective Subjective: Pt is on HD, she had fluid overload due to multiple differernt procedures including CAT scan she was hypooxcic and received oxygen during HD Objective - Vital Signs/Intake and Output Vital Signs (last 24 hours): Temp Pulse Resp BP Pulse Ox 98.9 F 79 20 161/67 H 97 11/01/17 09:46 11/01/17 09:46 11/01/17 09:46 11/01/17 09:46 11/01/17 04:22 Intake and Output: 11/01/17 11/01/17 06:59 18:59 Intake Total 120 Balance 120 - Medications Medications: Current Medications Acetaminophen (Tylenol 325mg Tab) 650 mg PO Q4 PRN PRN Reason: Fever >100.4 F Last Admin: 10/25/17 02:14 Dose: 650 mg Aspirin (Ecotrin) 81 mg PO DAILY [facility] Last Admin: 11/01/17 09:12 Dose: 81 mg Calcium Acetate (Phoslo) 667 mg PO TIDCC [facility] Last Admin: 11/01/17 11:21 Dose: 667 mg Carvedilol (Coreg) 12.5 mg PO BID [facility] Last Admin: 11/01/17 09:12 Dose: 12.5 mg Clonidine HCl (Catapres) 0.3 mg PO Q8 [facility] Last Admin: 11/01/17 13:26 Dose: 0.3 mg Diphenhydramine HCl (Benadryl) 25 mg PO Q8 PRN PRN Reason: Itching / Pruritus Last Admin: 10/17/17 21:53 Dose: 25 mg Epoetin Cornelius (Procrit) 10,000 unit IV MWF [facility] Last Admin: 10/31/17 19:35 Dose: 10,000 unit Guaifenesin/Dextromethorphan (Robitussin Dm) 10 ml PO Q4H PRN PRN Reason: Cough and congestion Last Admin: 11/01/17 11:25 Dose: 10 ml Heparin Sodium (Porcine) (Heparin) 5,000 units SC Q8 [facility] Last Admin: 11/01/17 13:28 Dose: 5,000 units Hydralazine HCl (Apresoline) 10 mg IVP Q6H PRN PRN Reason: SBP > 180 Hydralazine HCl (Apresoline) 25 mg PO Q8 [facility] Last Admin: 11/01/17 13:26 Dose: 25 mg Hydromorphone HCl (Dilaudid) 0.5 mg IVP Q4H PRN PRN Reason: Pain, severe (8-10) Last Admin: 11/01/17 13:21 Dose: 0.5 mg Vancomycin/Sodium Chloride (Vancomycin 1 Gm/Ns 200 Ml) 1 gm in 200 mls @ 133 mls/hr IVPB MWF [facility] PRN Reason: Protocol Stop: 11/07/17 10:31 Last Admin: 10/31/17 11:22 Dose: 133 mls/hr Metronidazole (Flagyl) 500 mg in 100 mls @ 100 mls/hr IVPB Q12H [facility] PRN Reason: Protocol Last Admin: 11/01/17 07:49 Dose: 100 mls/hr Insulin Aspart (Novolog) 0 unit SC ACHS [facility] PRN Reason: Protocol Last Admin: 11/01/17 13:32 Dose: 4 unit Insulin Glargine (Lantus) 10 unit SC [facility] Last Admin: 10/31/17 22:58 Dose: 10 units Metoclopramide HCl (Reglan) 5 mg PO ACHS [facility] Last Admin: 11/01/17 11:24 Dose: 5 mg Nifedipine (Procardia Xl) 90 mg PO DAILY [facility] Last Admin: 11/01/17 09:19 Dose: 90 mg Ondansetron HCl (Zofran Inj) 4 mg IVP Q8H PRN PRN Reason: Nausea/Vomiting Pantoprazole Sodium (Protonix Ec Tab) 20 mg PO DAILY [facility] Last Admin: 11/01/17 11:18 Dose: 20 mg Prednisone (Prednisone Tab) 20 mg PO DAILY [facility] Last Admin: 11/01/17 09:19 Dose: 20 mg Rosuvastatin Calcium (Crestor) 10 mg PO HS [facility] Last Admin: 10/31/17 22:56 Dose: 10 mg Vitamin B Complex/Vit C/Folic Acid (Nephro-Anjelica) 1 tab PO 0800 [facility] Last Admin: 11/01/17 07:52 Dose: 1 tab - Labs Labs: 10/31/17 08:25 10/31/17 08:25 PT 11.6 SECONDS (9.7-12.2) 10/31/17 08:25 INR 1.1 10/31/17 08:25 APTT 35 SECONDS (21-34) H 10/31/17 08:25 - Constitutional Appears: No Acute Distress - Head Exam Head Exam: ATRAUMATIC, NORMAL INSPECTION, NORMOCEPHALIC - Eye Exam Eye Exam: EOMI, Normal appearance, PERRL Pupil Exam: NORMAL ACCOMODATION, PERRL - Respiratory Exam Respiratory Exam: Decreased Breath Sounds, Rales, Rhonchi - Cardiovascular Exam Cardiovascular Exam: REGULAR RHYTHM, +S1, +S2. absent: Murmur - GI/Abdominal Exam GI & Abdominal Exam: Soft, Normal Bowel Sounds. absent: Tenderness Assessment and Plan (1) COPD with acute exacerbation Status: Acute (2) Abdominal pain Status: Acute (3) Diabetic foot ulcer Status: Acute (4) Hypertension Assessment & Plan: add hydralazine 25 TID Status: Chronic (5) Hypertensive CKD, ESRD on dialysis Assessment & Plan: on HD Status: Chronic
--- NOTE | 2017-11-01 17:08 | CP.PCM.PN ---
Subjective - Date & Time of Evaluation Date of Evaluation: 11/01/17 Time of Evaluation: 10:40 - Subjective Subjective: patient seen and examined Complaining of weakness Status post hemodialysis yesterday no shortness of breath and cough Objective - Vital Signs/Intake and Output Vital Signs (last 24 hours): Temp Pulse Resp BP Pulse Ox 98.4 F 80 20 155/68 H 99 11/01/17 15:24 11/01/17 15:24 11/01/17 15:24 11/01/17 15:24 11/01/17 15:24 Intake and Output: 11/01/17 11/01/17 06:59 18:59 Intake Total 120 Balance 120 - Medications Medications: Current Medications Acetaminophen (Tylenol 325mg Tab) 650 mg PO Q4 PRN PRN Reason: Fever >100.4 F Last Admin: 10/25/17 02:14 Dose: 650 mg Aspirin (Ecotrin) 81 mg PO DAILY [facility] Last Admin: 11/01/17 09:12 Dose: 81 mg Calcium Acetate (Phoslo) 667 mg PO TIDCC [facility] Last Admin: 11/01/17 11:21 Dose: 667 mg Carvedilol (Coreg) 12.5 mg PO BID [facility] Last Admin: 11/01/17 09:12 Dose: 12.5 mg Clonidine HCl (Catapres) 0.3 mg PO Q8 [facility] Last Admin: 11/01/17 13:26 Dose: 0.3 mg Diphenhydramine HCl (Benadryl) 25 mg PO Q8 PRN PRN Reason: Itching / Pruritus Last Admin: 10/17/17 21:53 Dose: 25 mg Epoetin Cornelius (Procrit) 10,000 unit IV MWF [facility] Last Admin: 10/31/17 19:35 Dose: 10,000 unit Guaifenesin/Dextromethorphan (Robitussin Dm) 10 ml PO Q4H PRN PRN Reason: Cough and congestion Last Admin: 11/01/17 11:25 Dose: 10 ml Heparin Sodium (Porcine) (Heparin) 5,000 units SC Q8 [facility] Last Admin: 11/01/17 13:28 Dose: 5,000 units Hydralazine HCl (Apresoline) 10 mg IVP Q6H PRN PRN Reason: SBP > 180 Hydralazine HCl (Apresoline) 25 mg PO Q8 [facility] Last Admin: 11/01/17 13:26 Dose: 25 mg Hydromorphone HCl (Dilaudid) 0.5 mg IVP Q4H PRN PRN Reason: Pain, severe (8-10) Last Admin: 11/01/17 13:21 Dose: 0.5 mg Vancomycin/Sodium Chloride (Vancomycin 1 Gm/Ns 200 Ml) 1 gm in 200 mls @ 133 mls/hr IVPB MWF [facility] PRN Reason: Protocol Stop: 11/07/17 10:31 Last Admin: 10/31/17 11:22 Dose: 133 mls/hr Metronidazole (Flagyl) 500 mg in 100 mls @ 100 mls/hr IVPB Q12H [facility] PRN Reason: Protocol Last Admin: 11/01/17 07:49 Dose: 100 mls/hr Insulin Aspart (Novolog) 0 unit SC ACHS [facility] PRN Reason: Protocol Last Admin: 11/01/17 13:32 Dose: 4 unit Insulin Glargine (Lantus) 10 unit SC [facility] Last Admin: 10/31/17 22:58 Dose: 10 units Metoclopramide HCl (Reglan) 5 mg PO ACHS [facility] Last Admin: 11/01/17 11:24 Dose: 5 mg Nifedipine (Procardia Xl) 90 mg PO DAILY [facility] Last Admin: 11/01/17 09:19 Dose: 90 mg Ondansetron HCl (Zofran Inj) 4 mg IVP Q8H PRN PRN Reason: Nausea/Vomiting Pantoprazole Sodium (Protonix Ec Tab) 20 mg PO DAILY [facility] Last Admin: 11/01/17 11:18 Dose: 20 mg Prednisone (Prednisone Tab) 20 mg PO DAILY [facility] Last Admin: 11/01/17 09:19 Dose: 20 mg Rosuvastatin Calcium (Crestor) 10 mg PO HS [facility] Last Admin: 10/31/17 22:56 Dose: 10 mg Vitamin B Complex/Vit C/Folic Acid (Nephro-Anjelica) 1 tab PO 0800 [facility] Last Admin: 11/01/17 07:52 Dose: 1 tab - Labs Labs: 10/31/17 08:25 10/31/17 08:25 PT 11.6 SECONDS (9.7-12.2) 10/31/17 08:25 INR 1.1 10/31/17 08:25 APTT 35 SECONDS (21-34) H 10/31/17 08:25 - Head Exam Head Exam: ATRAUMATIC, NORMOCEPHALIC - ENT Exam ENT Exam: Mucous Membranes Moist - Neck Exam Neck Exam: Normal Inspection - Respiratory Exam Respiratory Exam: Decreased Breath Sounds - Cardiovascular Exam Cardiovascular Exam: REGULAR RHYTHM - GI/Abdominal Exam GI & Abdominal Exam: Soft, Normal Bowel Sounds - Extremities Exam Extremities Exam: Normal Inspection Assessment and Plan (1) Pneumonia Assessment & Plan: on IV antibiotics Clinically improving Continue hemodialysis Status: Acute (2) COPD with acute exacerbation Status: Acute (3) ESRD needing dialysis Status: Acute
--- NOTE | 2017-11-01 17:59 | NM ---
PROCEDURE: Nuclear Ceretec scan HISTORY: occult abscess COMPARISON: Chest CT 10/25/2017 and abdomen and pelvis CT without contrast 10/30/2017. TECHNIQUE: Whole-body nuclear Ceretec scan was performed following intravenous administration of technetium 99 M Ceretec tagged white blood cells at a dose of 24.6 mCi. Multiple anterior and posterior images submitted for interpretation. FINDINGS: Limited uptake is appreciated at the right axilla in medial proximal left upper extremity which could reflect reactive lymph nodes. Hazy uptake is appreciated in the lungs which is nonspecific. It is seen degree decrease in activity from 220 hours post isotope administration and may represent a normal finding as it is particle normal by distribution of this isotope/ligand conglomerate. Subtle ground-glass opacity in chest CT 621 18 May reflect reversal underlying inflammatory pulmonary changes. IMPRESSION: Reactive right axilla and left upper extremity lymph nodes are felt to be present. Activity lungs may reflect normal bio distribution. Inflammatory bb pulmonary changes are not completely excluded given ground-glass opacity in chest CT 10/25/2017 and further clinical correlation is recommended.
--- NOTE | 2017-11-01 19:12 | PN ---
DATE: 11/01/2017 SUBJECTIVE: The patient underwent hemodialysis yesterday. She denies any left arm pain. She is having recurrence of her watery diarrhea and a sample was taken already. PHYSICAL EXAMINATION: VITAL SIGNS: Blood pressure 161/67, heart rate 79, temperature 98.9, and respirations 20. HEENT: Pale conjunctivae. CHEST: Clear. HEART: S1 and S2 regular. ABDOMEN: Soft. EXTREMITIES: Trace leg edema. LABORATORY DATA: Blood culture is negative after five days. Nuclear scan is performed, the report is still pending. ASSESSMENT: 1. Consider non-ST elevation myocardial infarction. The patient refused cardiac catheterization. 2. Recurrent diarrhea, rule out Clostridium difficile colitis. 3. Hypertension. 4. Uncontrolled diabetes mellitus. 5. Status post left arm fistulogram with angioplasty. 6. Chronic obstructive lung disease. RECOMMENDATIONS: Continue hydralazine 10 mg IV every 6 hours p.r.n. and oral hydralazine 25 mg every 8 hours. Continue clonidine 0.2 mg every 8 hours, Coreg 12.5 mg twice a day, Crestor 10 mg once a day, aspirin 81 mg once a day, IV Flagyl 500 mg every 12 hours, subcutaneous heparin 5000 units every 8 hours, prednisone 20 mg once a day, Procardia XL 90 mg once a day, vancomycin 1 gm intravenously Sunday, Sunday, and Sunday. Olayinka Brown MD
--- NOTE | 2017-11-01 20:17 | CP.PCM.PN ---
Subjective - Date & Time of Evaluation Date of Evaluation: 11/01/17 Time of Evaluation: 20:17 - Subjective Subjective: CHIEF COMPLAINTS TODAY : POD #1 s/p fistulogram with 8 mm balloon angioplasty left arm. AFEBRILE, c/o dry cough Denies further abdominal pain/nausea or vomiting. S/P HD -FOR FLUID OVERLOAD TODAY ROS. HEENT : N. Resp : +ve COUGH, wheezing ,pleuritic CP ,or hemoptysis Cardio : No anginal CP, PND, orthopnea, palpitation GI : No abd.pain, n/v ,diarrhea or GI bleeding . LINE UP EXAMINER : No headache, vertigo, focal deficit. Musculoskel : No joint swelling , Derm : No rash Psych : Normal affect. Ext : No swelling ,calf pain PE. Pt. is alert awake in no distress. V.S As noted in the chart Head ,ear nose,throat and eyes : Normal. Neck : Supple with normal carotids. Lungs: scattered rhonchi rt>left Heart : S1 & S2 normal . No murmur. Abd : SOFT , MILD TENDERNESS EPIGASTRIUM ,with normal bowel sounds. Neuro : Moves all ext. with no localized deficit. Ext : No edema with intact pulses.Non tender calves Derm : No rashes or decubitus ulcer. LABS/RADIOLOGY: CERETEC SCAN; reactive right axilla and left upper extremity lymph node. +ve activity in the lung ? inflammatory changes not excluded given groundglass opacity in the CT CHEST. wbc IMPROVING CT OF THE ABDOMEN AND PELVIS- UNREMARKABLE bLOOD CULTURES 10/25/17 NEGATIVE FOR 3 DAYS ASSESSMENT SEPSIS PNEUMONIA LEUKOCYTOSIS-IMPROVING CRBSI.(PT HAS A PICCLINE ) DE VOMITING ?GASTROPERESIS/GASTRITIS-IMPROVED DM-2 ESRD ON HD MWF. BACKPAIN. /PLAN : Continue IV vancomycin 1 g post-each hemodialysis mwf x 5 doses 10/26/17. Continue iv Zosyn 2.25mg iv q 8hrly 10/25/17. ON IV FLAGYL 500MG IV PB Q 12HRLY. 10/29/17 F/U cbc WITH DIFFERENTIAL/LFTS IN AM. PULMONARY TOILET. Objective - Vital Signs/Intake and Output Vital Signs (last 24 hours): Temp Pulse Resp BP Pulse Ox 98.4 F 80 20 154/66 H 99 11/01/17 15:24 11/01/17 15:24 11/01/17 15:24 11/01/17 17:27 11/01/17 15:24 - Medications Medications: Current Medications Acetaminophen (Tylenol 325mg Tab) 650 mg PO Q4 PRN PRN Reason: Fever >100.4 F Last Admin: 10/25/17 02:14 Dose: 650 mg Aspirin (Ecotrin) 81 mg PO DAILY [facility] Last Admin: 11/01/17 09:12 Dose: 81 mg Calcium Acetate (Phoslo) 667 mg PO TIDCC [facility] Last Admin: 11/01/17 17:27 Dose: 667 mg Carvedilol (Coreg) 12.5 mg PO BID [facility] Last Admin: 11/01/17 17:27 Dose: 12.5 mg Clonidine HCl (Catapres) 0.3 mg PO Q8 [facility] Last Admin: 11/01/17 13:26 Dose: 0.3 mg Diphenhydramine HCl (Benadryl) 25 mg PO Q8 PRN PRN Reason: Itching / Pruritus Last Admin: 10/17/17 21:53 Dose: 25 mg Epoetin Cornelius (Procrit) 10,000 unit IV [facility] [place] Last Admin: 10/31/17 19:35 Dose: 10,000 unit Guaifenesin/Dextromethorphan (Robitussin Dm) 10 ml PO Q4H PRN PRN Reason: Cough and congestion Last Admin: 11/01/17 11:25 Dose: 10 ml Heparin Sodium (Porcine) (Heparin) 5,000 units SC Q8 [facility] Last Admin: 11/01/17 13:28 Dose: 5,000 units Hydralazine HCl (Apresoline) 10 mg IVP Q6H PRN PRN Reason: SBP > 180 Hydralazine HCl (Apresoline) 25 mg PO Q8 [facility] Last Admin: 11/01/17 13:26 Dose: 25 mg Hydromorphone HCl (Dilaudid) 0.5 mg IVP Q4H PRN PRN Reason: Pain, severe (8-10) Last Admin: 11/01/17 18:12 Dose: 0.5 mg Vancomycin/Sodium Chloride (Vancomycin 1 Gm/Ns 200 Ml) 1 gm in 200 mls @ 133 mls/hr IVPB [facility] [place] PRN Reason: Protocol Stop: 11/07/17 10:31 Last Admin: 10/31/17 11:22 Dose: 133 mls/hr Metronidazole (Flagyl) 500 mg in 100 mls @ 100 mls/hr IVPB Q12H [facility] PRN Reason: Protocol Last Admin: 11/01/17 19:33 Dose: 100 mls/hr Insulin Aspart (Novolog) 0 unit SC ACHS [facility] PRN Reason: Protocol Last Admin: 11/01/17 17:27 Dose: 4 unit Insulin Glargine (Lantus) 10 unit SC HS [facility] Last Admin: 10/31/17 22:58 Dose: 10 units Metoclopramide HCl (Reglan) 5 mg PO ACHS [facility] Last Admin: 11/01/17 17:27 Dose: 5 mg Nifedipine (Procardia Xl) 90 mg PO DAILY [facility] Last Admin: 11/01/17 09:19 Dose: 90 mg Ondansetron HCl (Zofran Inj) 4 mg IVP Q8H PRN PRN Reason: Nausea/Vomiting Pantoprazole Sodium (Protonix Ec Tab) 20 mg PO DAILY [facility] Last Admin: 11/01/17 11:18 Dose: 20 mg Prednisone (Prednisone Tab) 20 mg PO DAILY [facility] Last Admin: 11/01/17 09:19 Dose: 20 mg Rosuvastatin Calcium (Crestor) 10 mg PO HS [facility] Last Admin: 10/31/17 22:56 Dose: 10 mg Vitamin B Complex/Vit C/Folic Acid (Nephro-Anjelica) 1 tab PO 0800 [facility] Last Admin: 11/01/17 07:52 Dose: 1 tab - Labs Labs: 10/31/17 08:25 10/31/17 08:25 PT 11.6 SECONDS (9.7-12.2) 10/31/17 08:25 INR 1.1 10/31/17 08:25 APTT 35 SECONDS (21-34) H 10/31/17 08:25 Assessment and Plan (1) Sepsis associated hypotension Status: Acute (2) Pneumonia Status: Acute (3) COPD with acute exacerbation Status: Acute (4) Gastroenteritis Status: Acute (5) DM2 (diabetes mellitus, type 2) Status: Chronic (6) ESRD (end stage renal disease) Status: Acute
[2017-11-01] MEDS: (Lantus) Insulin Glargine, Recombinant SC SCH (21:50)
[2017-11-02] MEDS: HYDROmorphone 0.5 mg/0.5 ml ISec IVP PRN ×3 (02:51→13:59)
[2017-11-02] MEDS: metroNIDAZOLE IV 500 mg/100 ml 500 MG/100 ML BAG IVPB SCH (06:53)
[2017-11-02] MEDS: Multivitamin Vitamin B Complex (Nephro-Vite) Tab PO SCH (08:37)
[2017-11-02] MEDS: (Novolog) Insulin Aspart, Recombinant 100 u/ml 10 ml vial SC SCH ×3 (08:37→17:06)
[2017-11-02 09:56] LABS: BASO # 0.1 K/uL (0.0-0.2); BASO % 0.8 % (0.0-2.0); EOS # 0.4 K/uL (0.0-0.7); EOS % 3.4 % (0.0-4.0); LYMPH # 1.9 K/uL (1.0-4.3); LYMPH % 14.7 % (20.0-40.0); MEAN CELL VOLUME 100.3 fL (81.0-99.0); MEAN CORPUSCULAR HEMOGLOBIN 33.8 pg (27.0-31.0); MEAN CORPUSCULAR HGB CONC 33.7 g/dL (33.0-37.0); MEAN PLATELET VOLUME 8.7 fL (7.2-11.7); MONO # 0.8 K/uL (0.0-0.8); NEUT # 9.9 K/uL (1.8-7.0); NEUT % 75.1 % (50.0-75.0); RBC 2.36 Mil/uL (3.80-5.20); RED CELL DISTRIBUTION WIDTH 17.1 % (11.5-14.5); WHITE BLOOD COUNT 13.2 K/uL (4.8-10.8)
--- NOTE | 2017-11-02 10:06 | CP.PCM.PN ---
Subjective - Date & Time of Evaluation Date of Evaluation: 11/02/17 Time of Evaluation: 09:20 - Subjective Subjective: patient seen and examined Denies shortness of breath Denies cough, denies fever chills Patient states she's feeling better today For hemodialysis today Objective - Vital Signs/Intake and Output Vital Signs (last 24 hours): Temp Pulse Resp BP Pulse Ox 97.8 F 70 20 178/79 H 96 11/02/17 07:00 11/02/17 07:00 11/02/17 07:00 11/02/17 07:00 11/02/17 07:00 Intake and Output: 11/02/17 11/02/17 06:59 18:59 Intake Total 700 Balance 700 - Medications Medications: Current Medications Acetaminophen (Tylenol 325mg Tab) 650 mg PO Q4 PRN PRN Reason: Fever >100.4 F Last Admin: 10/25/17 02:14 Dose: 650 mg Aspirin (Ecotrin) 81 mg PO DAILY [facility] Last Admin: 11/01/17 09:12 Dose: 81 mg Calcium Acetate (Phoslo) 667 mg PO TIDCC [facility] Last Admin: 11/02/17 08:37 Dose: 667 mg Carvedilol (Coreg) 12.5 mg PO BID [facility] Last Admin: 11/01/17 17:27 Dose: 12.5 mg Clonidine HCl (Catapres) 0.3 mg PO Q8 [facility] Last Admin: 11/02/17 05:58 Dose: 0.3 mg Diphenhydramine HCl (Benadryl) 25 mg PO Q8 PRN PRN Reason: Itching / Pruritus Last Admin: 10/17/17 21:53 Dose: 25 mg Epoetin Cornelius (Procrit) 10,000 unit IV MWF [facility] Last Admin: 10/31/17 19:35 Dose: 10,000 unit Guaifenesin/Dextromethorphan (Robitussin Dm) 10 ml PO Q4H PRN PRN Reason: Cough and congestion Last Admin: 11/01/17 11:25 Dose: 10 ml Heparin Sodium (Porcine) (Heparin) 5,000 units SC Q8 [facility] Last Admin: 11/02/17 05:59 Dose: 5,000 units Hydralazine HCl (Apresoline) 10 mg IVP Q6H PRN PRN Reason: SBP > 180 Hydralazine HCl (Apresoline) 25 mg PO Q8 [facility] Last Admin: 11/02/17 05:58 Dose: 25 mg Hydromorphone HCl (Dilaudid) 0.5 mg IVP Q4H PRN PRN Reason: Pain, severe (8-10) Last Admin: 11/02/17 06:53 Dose: 0.5 mg Vancomycin/Sodium Chloride (Vancomycin 1 Gm/Ns 200 Ml) 1 gm in 200 mls @ 133 mls/hr IVPB MWF [facility] PRN Reason: Protocol Stop: 11/07/17 10:31 Last Admin: 10/31/17 11:22 Dose: 133 mls/hr Metronidazole (Flagyl) 500 mg in 100 mls @ 100 mls/hr IVPB Q12H [facility] PRN Reason: Protocol Last Admin: 11/02/17 06:53 Dose: 100 mls/hr Insulin Aspart (Novolog) 0 unit SC ACHS [facility] PRN Reason: Protocol Last Admin: 11/02/17 08:37 Dose: 4 unit Insulin Glargine (Lantus) 10 unit SC [facility] Last Admin: 11/01/17 21:50 Dose: 10 units Metoclopramide HCl (Reglan) 5 mg PO ACHS [facility] Last Admin: 11/02/17 08:38 Dose: 5 mg Nifedipine (Procardia Xl) 90 mg PO DAILY [facility] Last Admin: 11/01/17 09:19 Dose: 90 mg Ondansetron HCl (Zofran Inj) 4 mg IVP Q8H PRN PRN Reason: Nausea/Vomiting Pantoprazole Sodium (Protonix Ec Tab) 20 mg PO DAILY [facility] Last Admin: 11/01/17 11:18 Dose: 20 mg Prednisone (Prednisone Tab) 20 mg PO DAILY [facility] Last Admin: 11/01/17 09:19 Dose: 20 mg Rosuvastatin Calcium (Crestor) 10 mg PO HS [facility] Last Admin: 11/01/17 21:53 Dose: 10 mg - Labs Labs: 11/02/17 09:49 10/31/17 08:25 PT 11.6 SECONDS (9.7-12.2) 10/31/17 08:25 INR 1.1 10/31/17 08:25 APTT 35 SECONDS (21-34) H 10/31/17 08:25 - Head Exam Head Exam: ATRAUMATIC, NORMOCEPHALIC - ENT Exam ENT Exam: Mucous Membranes Moist - Neck Exam Neck Exam: Normal Inspection - Respiratory Exam Respiratory Exam: Clear to Ausculation Bilateral - Cardiovascular Exam Cardiovascular Exam: REGULAR RHYTHM - GI/Abdominal Exam GI & Abdominal Exam: Soft, Normal Bowel Sounds Assessment and Plan (1) Pneumonia Assessment & Plan: Switch to p.o. antibiotics Clinically improving Continue hemodialysis Status: Acute (2) COPD with acute exacerbation Status: Acute (3) ESRD needing dialysis Status: Acute
[2017-11-02 10:11] LABS: ALB/GLOB RATIO 1.2 (1.0-2.1); ALBUMIN 3.5 g/dL (3.5-5.0); BILIRUBIN,DIRECT 0.5 mg/dL (0.0-0.4)
[2017-11-02] MEDS: Epoetin Alfa 10,000 unit/ml Dialysis IV SCH (11:30)
--- NOTE | 2017-11-02 12:50 | CP.PCM.PN ---
Subjective - Date & Time of Evaluation Date of Evaluation: 11/02/17 Time of Evaluation: 12:50 - Subjective Subjective: CHIEF COMPLAINTS TODAY : POD #2 s/p fistulogram with 8 mm balloon angioplasty left arm. AFEBRILE, states cough is better Denies further abdominal pain/nausea or vomiting. S/P HD -FOR FLUID OVERLOAD TODAY via LT. AVF ROS. HEENT : N. Resp : LESS COUGH, NO wheezing ,pleuritic CP ,or hemoptysis Cardio : No anginal CP, PND, orthopnea, palpitation GI : No abd.pain, n/v ,diarrhea or GI bleeding . 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 Musculoskel : No joint swelling , Derm : No rash Psych : Normal affect. Ext : No swelling ,calf pain PE. Pt. is alert awake in no distress. V.S As noted in the chart Head ,ear nose,throat and eyes : Normal. Neck : Supple with normal carotids. Lungs: [employer] Heart : S1 & S2 normal . No murmur. Abd : SOFT ,with normal bowel sounds. Neuro : Moves all ext. with no localized deficit. Ext : No edema with intact pulses.Non tender calves LT. AVF WORKING Derm : No rashes or decubitus ulcer. LABS/RADIOLOGY: CERETEC SCAN; reactive right axilla and left upper extremity lymph node. +ve activity in the lung ? inflammatory changes not excluded given groundglass opacity in the CT CHEST. wbc IMPROVING CT OF THE ABDOMEN AND PELVIS- UNREMARKABLE bLOOD CULTURES 10/25/17 NEGATIVE FOR 3 DAYS ASSESSMENT SEPSIS PNEUMONIA LEUKOCYTOSIS-IMPROVING CRBSI.(PT HAS A PICCLINE ) DE VOMITING ?GASTROPERESIS/GASTRITIS-IMPROVED DM-2 ESRD ON HD MWF. BACKPAIN. /PLAN : CASE DISCUSSED WITH PRACTICAL NURSING FACULTY MS BORREGO. Continue IV vancomycin 1 g post-each hemodialysis mwf x 5 doses 10/26/17.TO COMPLETE 11/07/17-LAST DOSE DC iv Zosyn 2.25mg iv q 8hrly 10/25/17. PO AUGMENTIN 500 MG BY MOUTH TWICE A DAY FOR 5 DAYS. DC IV FLAGYL 500MG IV PB Q 12HRLY. 10/29/17 PULMONARY TOILET PER PULMONARY. Objective - Vital Signs/Intake and Output Vital Signs (last 24 hours): Temp Pulse Resp BP Pulse Ox 98 F 72 15 169/66 H 95 11/02/17 09:30 11/02/17 11:29 11/02/17 11:29 11/02/17 11:29 11/02/17 11:29 Intake and Output: 11/02/17 11/02/17 06:59 18:59 Intake Total 700 Balance 700 - Medications Medications: Current Medications Acetaminophen (Tylenol 325mg Tab) 650 mg PO Q4 PRN PRN Reason: Fever >100.4 F Last Admin: 10/25/17 02:14 Dose: 650 mg Aspirin (Ecotrin) 81 mg PO DAILY [facility] Last Admin: 11/01/17 09:12 Dose: 81 mg Calcium Acetate (Phoslo) 667 mg PO TIDCC [facility] Last Admin: 11/02/17 08:37 Dose: 667 mg Carvedilol (Coreg) 12.5 mg PO BID [facility] Last Admin: 11/01/17 17:27 Dose: 12.5 mg Clonidine HCl (Catapres) 0.3 mg PO Q8 [facility] Last Admin: 11/02/17 05:58 Dose: 0.3 mg Diphenhydramine HCl (Benadryl) 25 mg PO Q8 PRN PRN Reason: Itching / Pruritus Last Admin: 10/17/17 21:53 Dose: 25 mg Epoetin Cornelius (Procrit) 10,000 unit IV MWF [facility] Last Admin: 11/02/17 11:30 Dose: 10,000 unit Guaifenesin/Dextromethorphan (Robitussin Dm) 10 ml PO Q4H PRN PRN Reason: Cough and congestion Last Admin: 11/01/17 11:25 Dose: 10 ml Heparin Sodium (Porcine) (Heparin) 5,000 units SC Q8 [facility] Last Admin: 11/02/17 05:59 Dose: 5,000 units Hydralazine HCl (Apresoline) 10 mg IVP Q6H PRN PRN Reason: SBP > 180 Hydralazine HCl (Apresoline) 25 mg PO Q8 [facility] Last Admin: 11/02/17 05:58 Dose: 25 mg Hydromorphone HCl (Dilaudid) 0.5 mg IVP Q4H PRN PRN Reason: Pain, severe (8-10) Last Admin: 11/02/17 06:53 Dose: 0.5 mg Vancomycin/Sodium Chloride (Vancomycin 1 Gm/Ns 200 Ml) 1 gm in 200 mls @ 133 mls/hr IVPB MWF [facility] PRN Reason: Protocol Stop: 11/07/17 10:31 Last Admin: 10/31/17 11:22 Dose: 133 mls/hr Metronidazole (Flagyl) 500 mg in 100 mls @ 100 mls/hr IVPB Q12H [facility] PRN Reason: Protocol Last Admin: 11/02/17 06:53 Dose: 100 mls/hr Piperacillin Sod/Tazobactam Sod (Zosyn 2.25 Gm Iv Premix) 2.25 gm in 50 mls @ 100 mls/hr IVPB Q8H [facility] PRN Reason: Protocol Insulin Aspart (Novolog) 0 unit SC ACHS [facility] PRN Reason: Protocol Last Admin: 11/02/17 08:37 Dose: 4 unit Insulin Glargine (Lantus) 10 unit SC [facility] Last Admin: 11/01/17 21:50 Dose: 10 units Metoclopramide HCl (Reglan) 5 mg PO ACHS [facility] Last Admin: 11/02/17 08:38 Dose: 5 mg Nifedipine (Procardia Xl) 90 mg PO DAILY [facility] Last Admin: 11/01/17 09:19 Dose: 90 mg Ondansetron HCl (Zofran Inj) 4 mg IVP Q8H PRN PRN Reason: Nausea/Vomiting Pantoprazole Sodium (Protonix Ec Tab) 20 mg PO DAILY [facility] Last Admin: 11/01/17 11:18 Dose: 20 mg Prednisone (Prednisone Tab) 10 mg PO DAILY [facility] Rosuvastatin Calcium (Crestor) 10 mg PO [facility] Last Admin: 11/01/17 21:53 Dose: 10 mg - Labs Labs: 11/02/17 09:49 10/31/17 08:25 PT 11.6 SECONDS (9.7-12.2) 10/31/17 08:25 INR 1.1 10/31/17 08:25 APTT 35 SECONDS (21-34) H 10/31/17 08:25 Assessment and Plan (1) Sepsis associated hypotension Status: Acute (2) Pneumonia Status: Acute (3) COPD with acute exacerbation Status: Acute (4) Gastroenteritis Status: Acute (5) DM2 (diabetes mellitus, type 2) Status: Chronic (6) ESRD (end stage renal disease) Status: Acute
[2017-11-02] MEDS ORDERED: Piperacill/Tazo 2.25gm in Dex 2.25 GM/50 ML BAG IVPB SCH (13:00)
--- NOTE | 2017-11-02 13:05 | CP.PCM.PN ---
Subjective - Date & Time of Evaluation Date of Evaluation: 11/02/17 Time of Evaluation: 10:50 - Subjective Subjective: Dialysis note She was seen on hemodialysis. Vital signs stable Discussed with the dialysis nurse at the bedside No nausea or vomiting Patient is being dialyzed through the left upper AV fistula Objective - Vital Signs/Intake and Output Vital Signs (last 24 hours): Temp Pulse Resp BP Pulse Ox 98 F 72 15 169/66 H 95 11/02/17 09:30 11/02/17 11:29 11/02/17 11:29 11/02/17 11:29 11/02/17 11:29 Intake and Output: 11/02/17 11/02/17 06:59 18:59 Intake Total 700 Balance 700 - Medications Medications: Current Medications Acetaminophen (Tylenol 325mg Tab) 650 mg PO Q4 PRN PRN Reason: Fever >100.4 F Last Admin: 10/25/17 02:14 Dose: 650 mg Aspirin (Ecotrin) 81 mg PO DAILY [facility] Last Admin: 11/01/17 09:12 Dose: 81 mg Calcium Acetate (Phoslo) 667 mg PO TIDCC [facility] Last Admin: 11/02/17 08:37 Dose: 667 mg Carvedilol (Coreg) 12.5 mg PO BID [facility] Last Admin: 11/01/17 17:27 Dose: 12.5 mg Clonidine HCl (Catapres) 0.3 mg PO Q8 [facility] Last Admin: 11/02/17 05:58 Dose: 0.3 mg Diphenhydramine HCl (Benadryl) 25 mg PO Q8 PRN PRN Reason: Itching / Pruritus Last Admin: 10/17/17 21:53 Dose: 25 mg Epoetin Cornelius (Procrit) 10,000 unit IV MWF [facility] Last Admin: 11/02/17 11:30 Dose: 10,000 unit Guaifenesin/Dextromethorphan (Robitussin Dm) 10 ml PO Q4H PRN PRN Reason: Cough and congestion Last Admin: 11/01/17 11:25 Dose: 10 ml Heparin Sodium (Porcine) (Heparin) 5,000 units SC Q8 [facility] Last Admin: 11/02/17 05:59 Dose: 5,000 units Hydralazine HCl (Apresoline) 10 mg IVP Q6H PRN PRN Reason: SBP > 180 Hydralazine HCl (Apresoline) 25 mg PO Q8 [facility] Last Admin: 11/02/17 05:58 Dose: 25 mg Hydromorphone HCl (Dilaudid) 0.5 mg IVP Q4H PRN PRN Reason: Pain, severe (8-10) Last Admin: 11/02/17 06:53 Dose: 0.5 mg Vancomycin/Sodium Chloride (Vancomycin 1 Gm/Ns 200 Ml) 1 gm in 200 mls @ 133 mls/hr IVPB MWF [facility] PRN Reason: Protocol Stop: 11/07/17 10:31 Last Admin: 10/31/17 11:22 Dose: 133 mls/hr Metronidazole (Flagyl) 500 mg in 100 mls @ 100 mls/hr IVPB Q12H [facility] PRN Reason: Protocol Last Admin: 11/02/17 06:53 Dose: 100 mls/hr Piperacillin Sod/Tazobactam Sod (Zosyn 2.25 Gm Iv Premix) 2.25 gm in 50 mls @ 100 mls/hr IVPB Q8H [facility] PRN Reason: Protocol Insulin Aspart (Novolog) 0 unit SC [facility] PRN Reason: Protocol Last Admin: 11/02/17 08:37 Dose: 4 unit Insulin Glargine (Lantus) 10 unit SC [facility] Last Admin: 11/01/17 21:50 Dose: 10 units Metoclopramide HCl (Reglan) 5 mg PO ACHS [facility] Last Admin: 11/02/17 08:38 Dose: 5 mg Nifedipine (Procardia Xl) 90 mg PO DAILY [facility] Last Admin: 11/01/17 09:19 Dose: 90 mg Ondansetron HCl (Zofran Inj) 4 mg IVP Q8H PRN PRN Reason: Nausea/Vomiting Pantoprazole Sodium (Protonix Ec Tab) 20 mg PO DAILY [facility] Last Admin: 11/01/17 11:18 Dose: 20 mg Prednisone (Prednisone Tab) 10 mg PO DAILY [facility] Rosuvastatin Calcium (Crestor) 10 mg PO HS [facility] Last Admin: 11/01/17 21:53 Dose: 10 mg - Labs Labs: 11/02/17 09:49 10/31/17 08:25 PT 11.6 SECONDS (9.7-12.2) 10/31/17 08:25 INR 1.1 10/31/17 08:25 APTT 35 SECONDS (21-34) H 10/31/17 08:25 - Constitutional Appears: No Acute Distress - ENT Exam ENT Exam: Mucous Membranes Moist - Neck Exam Neck Exam: absent: Lymphadenopathy - Respiratory Exam Respiratory Exam: NORMAL BREATHING PATTERN. absent: Chest Wall Tenderness - GI/Abdominal Exam GI & Abdominal Exam: Soft, Normal Bowel Sounds - Extremities Exam Extremities Exam: absent: Calf Tenderness - Back Exam Back Exam: absent: CVA tenderness (L), CVA tenderness (R) - Neurological Exam Neurological Exam: Alert - Skin Skin Exam: absent: Cyanosis Assessment and Plan (1) CKD (chronic kidney disease) requiring chronic dialysis Assessment & Plan: End stage renal disease. Patient receiving dialysis now. And tolerating very well. COPD exacerbation with pneumonia Acute Gastroenteritis (resolved) Missed HD with hyperkalemia Hyperglycemia Diabetic chronic Kidney Disease (E11.22) Hypertensive Chronic Kidney Disease (I12.0) End stage renal disease (N18.6) dependence on hemodialysis (Z99.2) (MWF) via AVF Anemia (D64.9), Hyperphosphatemia (E83.39), Secondary Hyperparathyroidism (E21.1 ), HTN (I12.0) ex smoker Status: Acute (2) Diabetic gastroparesis Status: Chronic (3) Hypertensive CKD, ESRD on dialysis Status: Chronic
[2017-11-02 13:42] VITALS: O2SAT 95
[2017-11-02] MEDS: NIFEdipine 90 mg ER Tab PO SCH (14:02)
[2017-11-02] MEDS: Pantoprazole 20 mg EC Tab PO SCH (14:04)
[2017-11-02] MEDS: Vancomycin 1 gm/NS 200 ml 1 GM/200 ML BAG IVPB SCH (14:09)
--- NOTE | 2017-11-02 14:16 | CP.PCM.PN ---
Subjective - Date & Time of Evaluation Date of Evaluation: 11/02/17 Time of Evaluation: 14:14 - Subjective Subjective: PT SEEN THIS AFTERNOON AFTER HD AND RESTING COMFORTABLY IN BED. PT CURRENTLY DENIES ANY SOB, COUGH, WEAKNESS, H/A, DIZZINESS, CHEST PAIN, PALPITATIONS, ABD PAIN, N/V. EATING LUNCH DURING EXAM AND WATCHING TELEVISION. PT TOLERATED HD WELL THIS AFTERNOON. PT HAS BEEN CLEARED FOR D/C HOME TODAY, SHE IS ADAMENTALY REFUSING [facility] TO PROVIDE HOME CARE SERVICES---PT REQUIRES ASSISTANCE WITH ADLS AND WOULD BENEFIT FROM SERVICES IN THE HOME SETTING. DISCUSSED D/C PLAN WITH DR. TOM, WHO RECOMMENDS VANCO TO CONTINUE FOR 2 MORE DAYS DURING HD (WILL BE GIVEN ON SUNDAY 11/05 AND TUESDAY 11/07--ALL ARRANGEMENTS FOR THIS DONE BY SW). PER DR. TOM, PT TO ALSO CONTINUE PO AUGMENTIN 500 MG BID X5 DAYS. PER DR. LEE CONTINUE PREDNISONE TAPER (SEE BELOW). I DISCUSSED D/C PLANS AND MEDICATIONS WITH THE PT AT LENGTH AND SHE VERBALIZES UNDERSTANDING. PRIMARY RN BEAU AWARE OF THE D/C PLAN WE DISCUSSED IT WITH THE PT. PT IN AGREEMENT WITH PLAN. SW TO ARRANGE TRANSPORTATION HOME FOR THIS AFTERNOON/EVENING. ALL RX HAVE BEEN SENT DIRECTLY TO PT'S PHARMACY REQUESTED BY HER AND REFILLS HAVE BEEN GIVEN FOR HER HOME MEDICATIONS WELL. SEE BELOW FOR D/C INSTRUCTIONS. NO FURTHER ORDERS. -FOLLOW UP WITH DR. LEE IN THE OFFICE IN 1 WEEK---CALL THE OFFICE FOR AN APPOINTMENT TIME. -FOLLOW UP WITH DR. BOJORQUEZ IN THE OFFICE IN 1-2 WEEKS---CALL THE OFFICE FOR AN APPOINTMENT TIME. -CONTINUE YOUR DIALYSIS SESSIONS EXACTLY USUAL. -PER DR. TOM , THE INFECTION DOCTOR, YOU ARE TO CONTINUE VANCOMYCIN (IV ANTIBIOTIC) FOR 2 MORE DAYS---YOU WILL RECEIVE THE MEDICATION AT YOUR DIALYSIS ON SUNDAY (11/05/17) AND ON SUNDAY (11/07/17). -ALSO PER DR. TOM, YOU HAVE BEEN PRESCRIBED AUGMENTIN (AN ORAL ANTIBIOTIC) 500 MG---TAKE 1 TABLET BY MOUTH TWICE A DAY (MORNING AND EVENING) FOR 5 DAYS (START THIS ON 11/03/17 AND LAST DAY TO BE TAKEN IS 11/07/17). -PER DR. LEE, CONTINUE ORAL STEROIDS FOLLOWS: PREDNISONE 20 MG (TAKE 4 TABLETS OF 5MG) BY MOUTH ONCE A DAY FOR 3 DAYS, THEN 10 MG (TAKE 2 TABLETS OF 5MG) BY MOUTH ONCE A DAY FOR 3 DAYS, THEN 5 MG (TAKE 1 TABLET OF 5MG) BY MOUTH ONCE A DAY FOR 3 DAYS. EACH TABLET YOU RECEIVE OF THE PREDNISONE IS 5 MG---TAKE EXACTLY PRESCRIBED. -[facility] WILL BE PROVIDING YOU WITH HOME CARE SERVICES. THEY WILL CONTACT YOU TO SEE WHAT DAY AND TIME THEY CAN START SERVICES. -IF YOU HAVE ANY FURTHER QUESTIONS OR CONCERNS, CONTACT DR. LEE'S OFFICE. Objective - Vital Signs/Intake and Output Vital Signs (last 24 hours): Temp Pulse Resp BP Pulse Ox 98 F 70 16 182/65 H 95 11/02/17 09:30 11/02/17 13:30 11/02/17 13:30 11/02/17 14:03 11/02/17 13:30 Intake and Output: 11/02/17 11/02/17 06:59 18:59 Intake Total 700 Balance 700 - Medications Medications: Current Medications Acetaminophen (Tylenol 325mg Tab) 650 mg PO Q4 PRN PRN Reason: Fever >100.4 F Last Admin: 10/25/17 02:14 Dose: 650 mg Aspirin (Ecotrin) 81 mg PO DAILY [facility] Last Admin: 11/02/17 14:06 Dose: 81 mg Calcium Acetate (Phoslo) 667 mg PO TIDCC [facility] Last Admin: 11/02/17 14:03 Dose: 667 mg Carvedilol (Coreg) 12.5 mg PO BID [facility] Last Admin: 11/02/17 14:03 Dose: 12.5 mg Clonidine HCl (Catapres) 0.3 mg PO Q8 [facility] Last Admin: 11/02/17 05:58 Dose: 0.3 mg Diphenhydramine HCl (Benadryl) 25 mg PO Q8 PRN PRN Reason: Itching / Pruritus Last Admin: 10/17/17 21:53 Dose: 25 mg Epoetin Cornelius (Procrit) 10,000 unit IV MWF [facility] Last Admin: 11/02/17 11:30 Dose: 10,000 unit Guaifenesin/Dextromethorphan (Robitussin Dm) 10 ml PO Q4H PRN PRN Reason: Cough and congestion Last Admin: 11/01/17 11:25 Dose: 10 ml Heparin Sodium (Porcine) (Heparin) 5,000 units SC Q8 [facility] Last Admin: 11/02/17 14:08 Dose: 5,000 units Hydralazine HCl (Apresoline) 10 mg IVP Q6H PRN PRN Reason: SBP > 180 Hydralazine HCl (Apresoline) 25 mg PO Q8 [facility] Last Admin: 11/02/17 14:05 Dose: 25 mg Hydromorphone HCl (Dilaudid) 0.5 mg IVP Q4H PRN PRN Reason: Pain, severe (8-10) Last Admin: 11/02/17 13:59 Dose: 0.5 mg Vancomycin/Sodium Chloride (Vancomycin 1 Gm/Ns 200 Ml) 1 gm in 200 mls @ 133 mls/hr IVPB MWF [facility] PRN Reason: Protocol Stop: 11/07/17 10:31 Last Admin: 11/02/17 14:09 Dose: 133 mls/hr Metronidazole (Flagyl) 500 mg in 100 mls @ 100 mls/hr IVPB Q12H [facility] PRN Reason: Protocol Last Admin: 11/02/17 06:53 Dose: 100 mls/hr Piperacillin Sod/Tazobactam Sod (Zosyn 2.25 Gm Iv Premix) 2.25 gm in 50 mls @ 100 mls/hr IVPB Q8H [facility] PRN Reason: Protocol Insulin Aspart (Novolog) 0 unit SC ACHS [facility] PRN Reason: Protocol Last Admin: 11/02/17 08:37 Dose: 4 unit Insulin Glargine (Lantus) 10 unit SC HS [facility] Last Admin: 11/01/17 21:50 Dose: 10 units Metoclopramide HCl (Reglan) 5 mg PO ACHS [facility] Last Admin: 11/02/17 14:02 Dose: 5 mg Nifedipine (Procardia Xl) 90 mg PO DAILY [facility] Last Admin: 11/02/17 14:02 Dose: 90 mg Ondansetron HCl (Zofran Inj) 4 mg IVP Q8H PRN PRN Reason: Nausea/Vomiting Pantoprazole Sodium (Protonix Ec Tab) 20 mg PO DAILY [facility] Last Admin: 11/02/17 14:04 Dose: 20 mg Prednisone (Prednisone Tab) 10 mg PO DAILY [facility] Rosuvastatin Calcium (Crestor) 10 mg PO HS [facility] Last Admin: 11/01/17 21:53 Dose: 10 mg - Labs Labs: 11/02/17 09:49 10/31/17 08:25 PT 11.6 SECONDS (9.7-12.2) 10/31/17 08:25 INR 1.1 10/31/17 08:25 APTT 35 SECONDS (21-34) H 10/31/17 08:25
--- NOTE | 2017-11-02 14:38 | RAD ---
Chest x-ray single frontal view History: Pneumonia. Comparison: 10/16/2017 Findings: Diffuse prominent bilateral confluent airspace opacities throughout both lungs which may represent underlying infiltrate versus edema. Cardiomegaly. Degenerative changes in the spine. Suggestion of small bilateral pleural effusions. Impression: Diffuse prominent bilateral confluent airspace opacities throughout both lungs which may represent underlying infiltrate versus edema. Cardiomegaly. Degenerative changes in the spine. Suggestion of small bilateral pleural effusions.
[2017-11-02 15:42] VITALS: BP 179/84; PULSE 79; RESP 20; TEMP 98.3
--- NOTE | 2017-11-02 20:59 | PN ---
DATE: 11/02/2017 SUBJECTIVE: The patient denies any retrosternal chest pain. She underwent hemodialysis this morning. No left arm pain. PHYSICAL EXAMINATION: VITAL SIGNS: Blood pressure 179/84, heart rate 79, temperature 98.3, respirations 20. HEENT: Pale conjunctiva. CHEST: Clear. HEART: S1 and S2, regular. ABDOMEN: Soft. EXTREMITIES: Trace leg edema. LABORATORY DATA: Hemoglobin and hematocrit 8 and 23.6, white count 15.2, platelet count 130,000. Today's blood sugars are 154 and 243 respectively. Mycoplasma pneumoniae IgM is negative. ASSESSMENT: 1. Consider non-ST segment elevation myocardial infarction. 2. Status post balloon angioplasty to the left upper arm fistula. 3. Reactive right axillary and left upper extremity lymph nodes noted on the [facility] WBC whole body scan. 4. End-stage renal disease, on hemodialysis. 5. Anemia. 6. Hypertension. 7. Diabetes mellitus. RECOMMENDATIONS: Continue hydralazine 10 mg intravenously every 6 hours p.r.n. and oral hydralazine 25 mg every 8 hours. Continue Coreg 12.5 mg twice a day, Coreg 10 mg once a day; aspirin 81 mg once a day; IV Flagyl 1200 mg every 12 hours; subcutaneous heparin 5000 units every 8 hours; PhosLo one tablet t.i.d.; Procardia XL 90 mg once a day; prednisone 10 mg once a day; Procrit 10,000 units intravenously Sunday, Sunday, and Sunday; vancomycin 1 gm intravenously Sunday, Sunday, and Sunday. Olayinka Brown MD
--- NOTE | 2017-11-02 23:07 | CP.PCM.DIS ---
Provider - Provider Date of Admission: 10/16/17 11:01 Attending physician: Sal Lee MD Time Spent in preparation of Discharge (in minutes): 45 Diagnosis - Discharge Diagnosis (1) COPD with acute exacerbation Status: Acute (2) Abdominal pain Status: Acute (3) Diabetic foot ulcer Status: Acute (4) Hypertension Status: Chronic (5) Hypertensive CKD, ESRD on dialysis Status: Chronic Hospital Course - Lab Results Lab Results: Micro Results 10/25/17 10:19 Blood-Venous Blood Culture - Final NO GROWTH AFTER 5 DAYS 10/25/17 10:19 Blood-Venous Gram Stain - Final TEST NOT PERFORMED 10/26/17 21:59 Naris MRSA Culture (Admit) - Final MRSA NOT DETECTED Most Recent Lab Values WBC 13.2 K/uL (4.8-10.8) H 11/02/17 09:49 RBC 2.36 Mil/uL (3.80-5.20) L 11/02/17 09:49 Hgb 8.0 g/dL (11.0-16.0) L 11/02/17 09:49 Hct 23.6 % (34.0-47.0) L 11/02/17 09:49 MCV 100.3 fL (81.0-99.0) H 11/02/17 09:49 MCH 33.8 pg (27.0-31.0) H 11/02/17 09:49 MCHC 33.7 g/dL (33.0-37.0) 11/02/17 09:49 RDW 17.1 % (11.5-14.5) H 11/02/17 09:49 Plt Count 130 K/uL (130-400) 11/02/17 09:49 MPV 8.7 fL (7.2-11.7) 11/02/17 09:49 Neut % (Auto) 75.1 % (50.0-75.0) H 11/02/17 09:49 Lymph % (Auto) 14.7 % (20.0-40.0) L 11/02/17 09:49 Moca % (Auto) 6.0 % (0.0-10.0) 11/02/17 09:49 Eos % (Auto) 3.4 % (0.0-4.0) 11/02/17 09:49 Baso % (Auto) 0.8 % (0.0-2.0) 11/02/17 09:49 Neut # (Auto) 9.9 K/uL (1.8-7.0) H 11/02/17 09:49 Lymph # (Auto) 1.9 K/uL (1.0-4.3) 11/02/17 09:49 Moca # (Auto) 0.8 K/uL (0.0-0.8) 11/02/17 09:49 Eos # (Auto) 0.4 K/uL (0.0-0.7) 11/02/17 09:49 Baso # (Auto) 0.1 K/uL (0.0-0.2) 11/02/17 09:49 Neutrophils % (Manual) 93 % (50-75) H 10/31/17 08:25 Band Neutrophils % 1 % (0-2) 10/29/17 14:45 Lymphocytes % (Manual) 4 % (20-40) L 10/31/17 08:25 Monocytes % (Manual) 2 % (0-10) 10/31/17 08:25 Eosinophils % (Manual) 1 % (0-4) 10/31/17 08:25 Metamyelocytes % 1 % (0-0) H 10/26/17 10:11 Myelocytes % 1 % (0-0) H 10/26/17 10:11 Toxic Granulation Present 10/21/17 07:23 Platelet Estimate Normal (NORMAL) 10/31/17 08:25 Large Platelets Present 10/28/17 11:47 Polychromasia Slight 10/28/17 11:47 Hypochromasia (manual) Moderate 10/31/17 08:25 Poikilocytosis (manual Slight 10/31/17 08:25 Basophilic Stippling Slight 10/29/17 14:45 Anisocytosis (manual) Slight 10/31/17 08:25 Microcytosis (manual) Slight 10/31/17 08:25 Macrocytosis (manual) Slight 10/28/17 11:47 Target Cells Slight 10/29/17 14:45 Ovalocytes Slight 10/28/17 11:47 ESR 30 mm/hr (0-20) H 10/28/17 11:47 PT 11.6 SECONDS (9.7-12.2) 10/31/17 08:25 INR 1.1 10/31/17 08:25 APTT 35 SECONDS (21-34) H 10/31/17 08:25 pO2 41 mm/Hg (30-55) 10/18/17 15:01 VBG pH 7.41 (7.32-7.43) 10/18/17 15:01 VBG pCO2 49 mmHg (40-60) 10/18/17 15:01 VBG HCO3 28.5 mmol/L 10/18/17 15:01 VBG Total CO2 32.6 mmol/L (22-28) H 10/18/17 15:01 VBG O2 Sat (Calc) 80.3 % (40-65) H 10/18/17 15:01 VBG Base Excess 5.3 mmol/L (0.0-2.0) H 10/18/17 15:01 VBG Potassium 4.7 mmol/L (3.6-5.2) 10/18/17 15:01 Sodium 135.0 mmol/l (132-148) 10/18/17 15:01 Chloride 99.0 mmol/L (98-107) 10/18/17 15:01 Glucose 142 mg/dl (65-105) H 10/18/17 15:01 Lactate 1.8 mmol/L (0.7-2.1) 10/18/17 15:01 Sodium 138 mmol/L (132-148) 10/31/17 08:25 Potassium 5.7 mmol/L (3.6-5.2) H 10/31/17 08:25 Chloride 96 mmol/L (98-107) L 10/31/17 08:25 Carbon Dioxide 24 mmol/L (22-30) 10/31/17 08:25 Anion Gap 23 (10-20) H 10/31/17 08:25 BUN 63 mg/dL (7-17) H 10/31/17 08:25 Creatinine 7.6 mg/dL (0.7-1.2) H* 10/31/17 08:25 Est GFR ( Amer) 7 10/31/17 08:25 Est GFR (Non-Af Amer) 6 10/31/17 08:25 POC Glucose (mg/dL) 243 mg/dL (65-110) H 11/02/17 16:29 Random Glucose 166 mg/dL (65-105) H 10/31/17 08:25 Calcium 7.4 mg/dl (8.6-10.4) L 10/31/17 08:25 Phosphorus 3.7 mg/dL (2.5-4.5) 10/26/17 10:18 Magnesium 2.2 mg/dL (1.6-2.3) 10/26/17 10:18 Total Bilirubin 0.5 mg/dL (0.2-1.3) 11/02/17 09:49 Direct Bilirubin 0.5 mg/dL (0.0-0.4) H 11/02/17 09:49 AST 32 U/L (14-36) 11/02/17 09:49 ALT 30 U/L (9-52) 11/02/17 09:49 Alkaline Phosphatase 117 U/L (38-126) 11/02/17 09:49 Lactate Dehydrogenase 526 U/L (313-618) 10/28/17 12:03 Total Creatine Kinase 58 U/L (30-135) 10/26/17 10:11 CK-MB (Mass) 2.58 ng/mL (0.0-3.38) 10/26/17 10:11 Troponin I 0.5370 ng/mL (0.00-0.120) H* 10/26/17 10:11 Total Protein 6.5 g/dL (6.3-8.3) 11/02/17 09:49 Albumin 3.5 g/dL (3.5-5.0) 11/02/17 09:49 Globulin 2.9 gm/dL (2.2-3.9) 11/02/17 09:49 Albumin/Globulin Ratio 1.2 (1.0-2.1) 11/02/17 09:49 Lipase 32 U/L (23-300) 10/16/17 08:56 CA 125 Antigen 13.4 U/mL (0-35) 10/29/17 14:45 Procalcitonin 1.72 NG/ML (0.19-0.49) H 10/26/17 10:11 Beta HCG, Quant < 2.39 mIU/ML 10/31/17 08:25 Venous Blood Potassium 4.7 mmol/L (3.6-5.2) 10/18/17 15:01 B-Hydroxybutyrate 0.10 mM (0.02-0.27) 10/26/17 10:18 Mycoplasma pneumon IgM Negative (NEGATIVE) 10/28/17 11:47 Blood Type O POSITIVE 10/31/17 08:25 Antibody Screen Negative 10/31/17 08:25 - Hospital Course Hospital Course: PT SEEN AND EXAMINED TODAY, STABLE FOR DISCHARGE, [facility] TO PROVIDE HOME CARE SERVICES---PT REQUIRES ASSISTANCE WITH ADLS AND WOULD BENEFIT FROM SERVICES IN THE HOME SETTING. PT REFUSED [facility] DURING THIS HOSPITALIZATION. -FOLLOW UP WITH ME IN THE OFFICE IN 1 WEEK---CALL THE OFFICE FOR AN APPOINTMENT TIME. -FOLLOW UP WITH DR. BOJORQUEZ IN THE OFFICE IN 1-2 WEEKS---CALL THE OFFICE FOR AN APPOINTMENT TIME. -CONTINUE YOUR DIALYSIS SESSIONS EXACTLY USUAL. -PER DR. SILVA , THE INFECTION DOCTOR, YOU ARE TO CONTINUE VANCOMYCIN (IV ANTIBIOTIC) FOR 2 MORE DAYS---YOU WILL RECEIVE THE MEDICATION AT YOUR DIALYSIS ON SUNDAY (11/05/17) AND ON SUNDAY (11/07/17). -ALSO PER DR. SILVA, YOU HAVE BEEN PRESCRIBED AUGMENTIN (AN ORAL ANTIBIOTIC) 500 MG---TAKE 1 TABLET BY MOUTH TWICE A DAY (MORNING AND EVENING) FOR 5 DAYS (START THIS ON 11/03/17 AND LAST DAY TO BE TAKEN IS 11/07/17). -PER DR. LEE, CONTINUE ORAL STEROIDS FOLLOWS: PREDNISONE 20 MG (TAKE 4 TABLETS OF 5MG) BY MOUTH ONCE A DAY FOR 3 DAYS, THEN 10 MG (TAKE 2 TABLETS OF 5MG) BY MOUTH ONCE A DAY FOR 3 DAYS, THEN 5 MG (TAKE 1 TABLET OF 5MG) BY MOUTH ONCE A DAY FOR 3 DAYS. EACH TABLET YOU RECEIVE OF THE PREDNISONE IS 5 MG---TAKE EXACTLY PRESCRIBED. -[facility] WILL BE PROVIDING YOU WITH HOME CARE SERVICES. THEY WILL CONTACT YOU TO SEE WHAT DAY AND TIME THEY CAN START SERVICES. -IF YOU HAVE ANY FURTHER QUESTIONS OR CONCERNS, CONTACT DR. LEE'S OFFICE. Discharge Exam - Head Exam Head Exam: ATRAUMATIC, NORMOCEPHALIC Discharge Plan - Discharge Medications Prescriptions: hydrALAZINE [Apresoline] 25 mg PO Q8 #90 tab Amoxicillin/Potassium Clav [Augmentin 500 mg-125 mg] 1 tab PO BID #10 tab DiphenhydrAMINE [Benadryl] 25 mg PO Q8 PRN #30 cap PRN Reason: Itching / Pruritus cloNIDine 0.3 mg/24 hr [catapres-TTS3 0.3 mg/24 hr] 1 patch TD Q7D@1000 #4 patch Carvedilol [Coreg] 12.5 mg PO BID #60 tab Rosuvastatin Calcium [Crestor] 5 mg PO HS #30 tab Gabapentin [Neurontin] 100 mg PO TID #90 cap Calcium Acetate [Phoslo] 667 mg PO TIDCC #90 tab predniSONE [predniSONE Tab] 5 mg PO DAILY #21 tab NIFEdipine ER [Procardia XL] 90 mg PO DAILY #30 ter Metoclopramide [Reglan] 5 mg PO ACTID #90 tab Vancomycin/0.9 % Sod Chloride [Vancomycin 1 G/100Ml-0.9% NaCl] 1 gm IV MWF #2 plast..bag - Follow Up Plan Condition: GOOD Disposition: HOME/ ROUTINE Instructions: Dialysis Diet , Hyperkalemia (DC), Cardiac Catheterization (DC), Fistulogram, Amoxicillin and Clavulanate, Metoclopramide, Vancomycin, End Stage Kidney Disease (DC) Additional Instructions: -FOLLOW UP WITH DR. LEE IN THE OFFICE IN 1 WEEK---CALL THE OFFICE FOR AN APPOINTMENT TIME. -FOLLOW UP WITH DR. BOJORQUEZ IN THE OFFICE IN 1-2 WEEKS---CALL THE OFFICE FOR AN APPOINTMENT TIME. -CONTINUE YOUR DIALYSIS SESSIONS EXACTLY USUAL. -PER DR. SILVA , THE INFECTION DOCTOR, YOU ARE TO CONTINUE VANCOMYCIN (IV ANTIBIOTIC) FOR 2 MORE DAYS---YOU WILL RECEIVE THE MEDICATION AT YOUR DIALYSIS ON SUNDAY (11/05/17) AND ON SUNDAY (11/07/17). -ALSO PER DR. SILVA, YOU HAVE BEEN PRESCRIBED AUGMENTIN (AN ORAL ANTIBIOTIC) 500 MG---TAKE 1 TABLET BY MOUTH TWICE A DAY (MORNING AND EVENING) FOR 5 DAYS (START THIS ON 11/03/17 AND LAST DAY TO BE TAKEN IS 11/07/17). -PER DR. LEE, CONTINUE ORAL STEROIDS FOLLOWS: PREDNISONE 20 MG (TAKE 4 TABLETS OF 5MG) BY MOUTH ONCE A DAY FOR 3 DAYS, THEN 10 MG (TAKE 2 TABLETS OF 5MG) BY MOUTH ONCE A DAY FOR 3 DAYS, THEN 5 MG (TAKE 1 TABLET OF 5MG) BY MOUTH ONCE A DAY FOR 3 DAYS. EACH TABLET YOU RECEIVE OF THE PREDNISONE IS 5 MG---TAKE EXACTLY PRESCRIBED. -[facility] WILL BE PROVIDING YOU WITH HOME CARE SERVICES. THEY WILL CONTACT YOU TO SEE WHAT DAY AND TIME THEY CAN START SERVICES. -IF YOU HAVE ANY FURTHER QUESTIONS OR CONCERNS, CONTACT DR. LEE'S OFFICE. Referrals: Jeff Garcia MD [Staff Provider] - Simba Garcia MD [Staff Provider] - Olayinka Brown MD [Staff Provider] - Stanford Silva MD [Staff Provider] - Sal Lee MD [Staff Provider] - Marc Bojorquez Jr., MD [Staff Provider] -
== END 2017-11-02 18:06 | disposition home health service (06) | DRG 853 ==
LOC: C.ER 06:46 → C.9E 11:01 → C.6T 13:35
PROVIDERS: ADMIT Internal Medicine; ATTEND Internal Medicine
PROC: 5A1D70Z Performance of Urinary Filtration, Intermittent, Less than 6 Hours Per Day (ICD-10-PCS; 2017-10-16)
PROC: 02HV33Z Insertion of Infusion Device into Superior Vena Cava, Percutaneous Approach (ICD-10-PCS; 2017-10-16)
PROC: 5A1D70Z Performance of Urinary Filtration, Intermittent, Less than 6 Hours Per Day (ICD-10-PCS; 2017-10-17)
PROC: 5A1D70Z Performance of Urinary Filtration, Intermittent, Less than 6 Hours Per Day (ICD-10-PCS; 2017-10-19)
PROC: 5A1D70Z Performance of Urinary Filtration, Intermittent, Less than 6 Hours Per Day (ICD-10-PCS; 2017-10-22)
PROC: 5A1D70Z Performance of Urinary Filtration, Intermittent, Less than 6 Hours Per Day (ICD-10-PCS; 2017-10-24)
PROC: 5A1D70Z Performance of Urinary Filtration, Intermittent, Less than 6 Hours Per Day (ICD-10-PCS; 2017-10-26)
PROC: 5A1D70Z Performance of Urinary Filtration, Intermittent, Less than 6 Hours Per Day (ICD-10-PCS; 2017-10-29)
PROC: 05763ZZ Dilation of Left Subclavian Vein, Percutaneous Approach (ICD-10-PCS; principal; 2017-10-31 09:00)
PROC: 5A1D70Z Performance of Urinary Filtration, Intermittent, Less than 6 Hours Per Day (ICD-10-PCS; 2017-11-02)
DX: A41.9 Sepsis, unspecified organism (principal); J18.9 Pneumonia, unspecified organism; N18.6 End stage renal disease; I12.0 Hypertensive chronic kidney disease with stage 5 chronic kidney disease or end stage renal disease; I87.1 Compression of vein; J44.1 Chronic obstructive pulmonary disease with (acute) exacerbation; N25.81 Secondary hyperparathyroidism of renal origin; E11.43 Type 2 diabetes mellitus with diabetic autonomic (poly)neuropathy; E87.5 Hyperkalemia; K52.9 Noninfective gastroenteritis and colitis, unspecified; Z79.4 Long term (current) use of insulin; Z87.891 Personal history of nicotine dependence; Z89.411 Acquired absence of right great toe; Z99.2 Dependence on renal dialysis; E11.65 Type 2 diabetes mellitus with hyperglycemia; K31.84 Gastroparesis; E11.621 Type 2 diabetes mellitus with foot ulcer; E78.00 Pure hypercholesterolemia, unspecified; E87.70 Fluid overload, unspecified; E11.22 Type 2 diabetes mellitus with diabetic chronic kidney disease; D64.9 Anemia, unspecified; F32.9 Major depressive disorder, single episode, unspecified; L97.509 Non-pressure chronic ulcer of other part of unspecified foot with unspecified severity; Z53.09 Procedure and treatment not carried out because of other contraindication

== ENCOUNTER 2017-11-02 22:20 | Inpatient (IN) | payer MEDICARE, OTHER ==
[2017-11-02 22:21] VITALS: BMI 28.2
--- NOTE | 2017-11-02 23:54 | C.PDOC ---
History Of Present Illness 42 year old female presents to the ER with a complaint of SOB that began tonight , associated with occasional cough. Patient has a Hx of renal dialysis, she was discharged from the hospital earlier today and was last dialyzed this morning. Denies chest pain. Chief Complaint (Nursing): Shortness Of Breath History Per: Patient History/Exam Limitations: no limitations Onset/Duration Of Symptoms: Hrs Current Symptoms Are (Timing): Still Present Initiating Event: Other (Not known) Current Respiratory Medications: None Associated Symptoms: Other (SOB). denies: Fever, Chest Pain Recent travel outside of the [place]: No Past Medical History Reviewed: Historical Data, Nursing Documentation, Vital Signs Vital Signs: Last Vital Signs Temp 98.8 F 11/03/17 01:30 Pulse 82 11/03/17 03:28 Resp 18 11/03/17 03:28 BP 172/76 H 11/03/17 03:28 Pulse Ox 100 11/03/17 03:42 - Medical History PMH: Anemia, Depression, Diabetes, Gastritis (diabetic gastroparesis), HTN, Hypercholesterolemia, Pneumonia, End Stage Renal Disease (Dialysis M-W-F), Chronic Kidney Disease Surgical History: Cholecystectomy (2010) - [facility] Procedures BONE BIOPSY NEC (04/07/13) CATARAC PHACOEMULS/ASPIR (09/23/14) CONTRAST ARTERIOGRAM NEC (07/17/13) CONTRAST ARTERIOGRAM-LEG (04/07/13) DIALYSIS ARTERIOVENOSTOM (04/07/13) DRAINAGE OF LEFT BREAST, OPEN APPROACH (10/27/16) ESOPHAGOGASTRODUODENOSCOPY [EGD] W/CLOSED BIOPSY (09/19/13) EXCIS DEBRIDE OF WOUND, INFECT, OR BURN (07/17/13) EXCISION OF LEFT BREAST, OPEN APPROACH, DIAGNOSTIC (10/27/16) EXCISION OF STOMACH, ENDO, DIAGN (09/13/16) EXCISION OF STOMACH, PYLORUS, ENDO, DIAGN (03/14/15) EXTRACTION OF LEFT FOOT SKIN, EXTERNAL APPROACH (10/07/16) EXTRACTION OF LEFT LOWER LEG SKIN, EXTERNAL APPROACH (06/16/16) HEMODIALYSIS (01/01/15) INCIS W REM OF FORIEGN BODY OR DEV FROM SKIN & SUBCUT TISSUE (05/27/13) INDIVID PSYCHOTHERAP NEC (04/20/13) INJECT/INFUSE NEC (11/09/13) INSERT LENS AT CATAR EXT (09/23/14) INSERTION OF INFUSION DEV INTO SUP VENA CAVA, PERC APPROACH (10/27/16) INSPECTION OF UPPER INTESTINAL TRACT, ENDO (03/10/16) OCCUPATIONAL THERAPY (04/30/13) OTHER GROUP THERAPY (04/20/13) OTHER SKIN & SUBQ I D (07/17/13) PERFORMANCE OF URINARY FILTRATION, MULTIPLE (01/11/17) PERFORMANCE OF URINARY FILTRATION, SINGLE (10/04/16) PHYSICAL THERAPY NEC (04/30/13) REMOVAL OF INFUSION DEV FROM GREAT VESSEL, DIABETES SOLUTIONS SPECIALIST APPROACH (10/16/16) REMOVAL OF INFUSION DEVICE FROM GREAT VESSEL, PERC APPROACH (10/27/16) TRANSFUSE NONAUT RED BLOOD CELLS IN PERIPH VEIN, PERC (06/10/15) ULTRASONOGRAPHY OF RIGHT AND LEFT HEART, TRANSESOPHAGEAL (06/19/15) ULTRASONOGRAPHY OF SUPERIOR VENA CAVA, GUIDANCE (10/07/16) Family History: States: Diabetes - Social History Hx Tobacco Use: No Hx Alcohol Use: No Hx Substance Use: No - Immunization History Hx Tetanus Toxoid Vaccination: Yes Hx Influenza Vaccination: Yes Hx Pneumococcal Vaccination: Yes Review Of Systems Constitutional: Negative for: Fever, Chills Cardiovascular: Negative for: Chest Pain, Palpitations Respiratory: Positive for: Cough, Shortness of Breath Gastrointestinal: Negative for: Nausea, Vomiting Physical Exam - Physical Exam Appears: Other (Tachypneic) Skin: Normal Color, Warm, Dry Head: Atraumatic, Normacephalic Eye(s): bilateral: Normal Inspection Oral Mucosa: Moist Neck: Normal, Supple Chest: Symmetrical, No Tenderness Cardiovascular: Rhythm Regular Respiratory: Normal Breath Sounds, No Rales, No Rhonchi, No Wheezing Gastrointestinal/Abdominal: Soft, No Tenderness Neurological/Psych: Oriented x3, Normal Speech ED Course And Treatment - Laboratory Results Result Diagrams: 11/02/17 23:55 11/02/17 23:55 O2 Sat by Pulse Oximetry: 100 (Room air) Pulse Ox Interpretation: Normal Progress Note: Blood work, CXR, and EKG ordered. Disposition Discussed With : Sal Gamez Doctor Will See Patient In The: Hospital Counseled Patient/Family Regarding: Diagnosis - Disposition Referrals: Simba Garcia MD [Staff Provider] - Disposition: HOSPITALIZED Disposition Time: 03:28 Condition: GUARDED Forms: [employer] (Wallisian) - POA Present On Arrival: None - Clinical Impression Clinical Impression: Pulmonary edema, ESRD (end stage renal disease) on dialysis, Pneumonia - Scribe Statement The provider has reviewed the documentation as recorded by the Scribisrael Tomlinson All medical record entries made by the Scribe were at my direction and personally dictated by me. I have reviewed the chart and agree that the record accurately reflects my personal performance of the history, physical exam, medical decision making, and the department course for this patient. I have also personally directed, reviewed, and agree with the discharge instructions and disposition.
[2017-11-02 23:58] LABS: BASO # 0.2 K/uL (0.0-0.2); BASO % 0.9 % (0.0-2.0); EOS # 0.5 K/uL (0.0-0.7); EOS % 2.7 % (0.0-4.0); HEMOGLOBIN 8.7 g/dL (11.0-16.0); LYMPH # 0.8 K/uL (1.0-4.3); LYMPH % 4.8 % (20.0-40.0); MEAN CELL VOLUME 102.3 fL (81.0-99.0); MEAN CORPUSCULAR HEMOGLOBIN 33.8 pg (27.0-31.0); MEAN CORPUSCULAR HGB CONC 33.1 g/dL (33.0-37.0); MONO # 0.6 K/uL (0.0-0.8); MONO % 3.6 % (0.0-10.0); NEUT # 15.2 K/uL (1.8-7.0); NRBC % 0.1 % (0.0-2.0); PLATELET COUNT 143 K/uL (130-400); RBC 2.57 Mil/uL (3.80-5.20); RED CELL DISTRIBUTION WIDTH 17.2 % (11.5-14.5); WHITE BLOOD COUNT 17.4 K/uL (4.8-10.8)
[2017-11-03 00:17] LABS: EOSINOPHIL 1 % (0-4); LYMPHOCYTE 5 % (20-40); MONOCYTE 4 % (0-10); NEUTROPHIL 90 % (50-75); PLATELET ESTIMATE NORMAL (NORMAL); TOTAL CELLS COUNTED 100
[2017-11-03 00:44] LABS: ALB/GLOB RATIO 1.2 (1.0-2.1); CALCIUM 8.1 mg/dl (8.6-10.4)
[2017-11-03] MEDS ORDERED: (Novolin R) Insulin Human Regular 100 units/ml vial SC ONE (03:32)
[2017-11-03] MEDS ORDERED: cefTRIAXone IV 1 gm in Dextros 50 ML IVPB ONE (03:34)
[2017-11-03] MEDS ORDERED: Azithromycin 500mg/250ML NS 500 MG/250 ML BAG IV STA (03:35)
[2017-11-03] MEDS ORDERED: (Novolin R) Insulin Human Regular 100 units/ml vial ONE (04:14)
--- NOTE | 2017-11-03 04:34 | CP.PCM.CON ---
History of Present Illness - History of Present Illness History of Present Illness: 42 y/o female with pmx of ESRD on HD, h/o pulmonary HTN, being seen by multiple consultants during [facility] admission being discharged and admitted to [facility] on 11/02/2017. Dr. Osorio requesting ICU bed for the purpose of dialysis. Patient c/o dyspnea, denies any chest pain, denies any abdominal pain. (+)nauseous at times ROS (+)dyspnea all other systems negative Review of Systems - Review of Systems Review of Systems: as per HPI Past Patient History - Infectious Disease Hx of Infectious Diseases: None - Past Medical History & Family History Past Medical History?: Yes - Past Social History Smoking Status: Former Smoker - CARDIAC Hx Hypercholesterolemia: Yes Hx Hypertension: Yes - PULMONARY Hx Pneumonia: Yes - HEENT Hx HEENT Problems: Yes Hx Cataracts: Yes (09/23/14 left) - RENAL Hx Chronic Kidney Disease: Yes - ENDOCRINE/METABOLIC Hx Endocrine Disorders: Yes Hx Diabetes Mellitus Type 2: Yes - HEMATOLOGICAL/ONCOLOGICAL Hx Anemia: Yes - INTEGUMENTARY Hx Dermatological Problems: Yes Other/Comment: right great toe amputation 2009 - MUSCULOSKELETAL/RHEUMATOLOGICAL Hx Musculoskeletal Disorders: Yes Hx Falls: Yes - GASTROINTESTINAL Hx Gastritis: Yes (diabetic gastroparesis) - GENITOURINARY/GYNECOLOGICAL Hx Genitourinary Disorders: Yes Other/Comment: renal failure - PSYCHIATRIC Hx Depression: Yes Hx Substance Use: No - SURGICAL HISTORY Hx Cholecystectomy: Yes (2010) - ANESTHESIA Hx Anesthesia: Yes Hx Anesthesia Reactions: No Hx Malignant Hyperthermia: No Meds Allergies/Adverse Reactions: Allergies Allergy/AdvReac Type Severity Reaction Status Date / Time ketorolac tromethamine Allergy Verified 10/16/17 06:55 [From Toradol] morphine Allergy Verified 10/16/17 06:55 tramadol Allergy RASH Verified 10/16/17 06:55 - Medications Medications: Current Medications Azithromycin (Zithromax 500mg In Ns Addvantage) 500 mg in 250 mls @ 166.667 mls /hr IV STAT STA PRN Reason: Protocol Stop: 11/03/17 05:04 Physical Exam - Head Exam Head Exam: ATRAUMATIC, NORMAL INSPECTION - ENT Exam ENT Exam: Mucous Membranes Moist - Respiratory Exam Respiratory Exam: Rhonchi, Respiratory Distress. absent: Wheezes, Stridor - Cardiovascular Exam Cardiovascular Exam: +S1, +S2, +S4 - GI/Abdominal Exam GI & Abdominal Exam: Normal Bowel Sounds, Soft. absent: Organomegaly, Rigid Results - Vital Signs Recent Vital Signs: Last Vital Signs Temp 98.8 F 11/03/17 01:30 Pulse 82 11/03/17 03:28 Resp 18 11/03/17 03:28 BP 172/76 H 11/03/17 03:28 Pulse Ox 100 11/03/17 04:09 - Labs Result Diagrams: 11/02/17 23:55 11/02/17 23:55 Labs: Laboratory Results - last 24 hr 11/02/17 11/02/17 11/02/17 23:03 23:55 23:55 WBC 17.4 H RBC 2.57 L Hgb 8.7 L Hct 26.3 L MCV 102.3 H D MCH 33.8 H MCHC 33.1 RDW 17.2 H Plt Count 143 MPV 9.0 Neut % (Auto) 88.0 H Lymph % (Auto) 4.8 L [place] % (Auto) 3.6 Eos % (Auto) 2.7 Baso % (Auto) 0.9 Neut # (Auto) 15.2 H Lymph # (Auto) 0.8 L [place] # (Auto) 0.6 Eos # (Auto) 0.5 Baso # (Auto) 0.2 Neutrophils % (Manual) 90 H Lymphocytes % (Manual) 5 L Monocytes % (Manual) 4 Eosinophils % (Manual) 1 Platelet Estimate Normal Sodium 138 Potassium 5.2 Chloride 105 Carbon Dioxide 17 L Anion Gap 21 H BUN 29 H Creatinine 4.6 H Est GFR ( Amer) 13 Est GFR (Non-Af Amer) 11 POC Glucose (mg/dL) 265 H Random Glucose 308 H Calcium 8.1 L Total Bilirubin 0.9 AST 30 ALT 37 Alkaline Phosphatase 132 H NT-Pro-B Natriuret Pep 53420 H Total Protein 7.4 Albumin 4.0 Globulin 3.3 Albumin/Globulin Ratio 1.2 Assessment & Plan - Assessment and Plan (Free Text) Assessment: Dyspnea: suspect possible aspiration with undelying COPD, Pulmonary HTN and b/l basilar infiltrate, consult Dr. Garcia for dyspnea, continue PPV, bronchodilators and bi-pap -Leukocytosis 2nd Aspiration/sepsis: consider broad spectruma bx, after clifford cultures, serial lactic and empirical abx, consult Dr. Silva -DM: continue outpatient rx ffor Dm -Diabetic gastropathy: consider Gi series, nutritoin consult -HTN: restart outpatient medications, including av andrey shay, clonidine and hydralazine PRN -previous/current admission, CT angio did not reveal a PE (pre-test probability of PE is low) -ESRD on HD: patient noted she had HD on Sunday (yesterday), consult Dr. prakash -contineu DVT/PUD ppx -Please re-start all medications as previously prescribed. -Patient admitted to ICU for purposes of HD. - Date & Time Date: 11/03/17 Time: 04:39
[2017-11-03] MEDS ORDERED: Piperacill/Tazo 2.25gm in Dex 2.25 GM/50 ML BAG IVPB SCH (06:00)
--- NOTE | 2017-11-03 06:06 | PCM.SEPTIC ---
Sepsis Progress Note - Reassessment Type Reassessment Type: Non-invasive reassessment - Non Invasive Reassessment Were the most recent vital sign reviewed: Yes Vital Sign (Latest): Temp Pulse Resp BP Pulse Ox 98.8 F 84 96 H 175/84 H 100 11/03/17 01:30 11/03/17 05:00 11/03/17 05:00 11/03/17 05:00 11/03/17 04:09 Cardiovascular: Yes: Regular Rate, Rhythm, Murmur Respiratory: Yes: Decreased Breath Sounds. No: Crackles, Stridor, Wheezing Capillary Refill: Normal (Less than 2 sec) Skin: Warm - Invasive Reassessment (complete 2 of 4) Was a Central Venous Pressure Measurement obtained within 6 Hours after the presentation of septic shock: No Was a central venous oxygen measurement obtained within 6 hours after the presentation of septic shock: No Was a bedside cardiovascular ultrasound performed within 6 hours after the presentation of septic shock: No Was a passive leg raise performed or was a fluid challenge performed within 6 hrs of the initial fluid bolus: No
[2017-11-03] MEDS ORDERED: Vancomycin 1 gm/NS 200 ml 1 GM/200 ML BAG IVPB STA (06:15)
[2017-11-03] MEDS: Oxycodone/Acetaminophen 5/325 mg Tab PO PRN ×2 (06:56→22:07)
[2017-11-03] MEDS: Albuterol-Ipratrop 3 mg / 0.5 (3 ml) UD INH SCH ×5 (07:46→23:28)
[2017-11-03] MEDS ORDERED: Azithromycin 500 MG in Sodium Chloride 0.9% 250 ML IVPB ONE (08:30)
[2017-11-03] MEDS: Piperacill/Tazo 2.25gm in Dex 2.25 GM/50 ML BAG IVPB SCH ×3 (08:32→16:27)
--- NOTE | 2017-11-03 10:01 | CT ---
PROCEDURE: CT Chest without contrast HISTORY: SOB/ ESRD COMPARISON: Comparison made with prior chest radiograph dated 11/02/2017. In addition, correlation made with CT scan abdomen and pelvis 10/30/2017 which image both lung bases. TECHNIQUE: Contiguous axial images were obtained through the chest without intravenous contrast enhancement. Sagittal and coronal reconstructions were performed. Radiation dose (DLP): 990.08 mGy-cm. This CT exam was performed using one or more of the following dose reduction techniques: Automated exposure control, adjustment of the mA and/or kV according to patient size, and/or use of iterative reconstruction technique. FINDINGS: LUNGS: Bilateral lower lobe alveolar-type infiltrates and bilateral effusions. Additionally, there are ground-glass opacities lower lobe predominance with interlobular septal thickening 1st. Findings are consistent with pulmonary edema ; rule out fluid overload or CHF. MEDIASTINUM: Heart appears enlarged. . No significant pericardial effusion. . There is a small hiatal hernia. Slight wall thickening of the distal esophagus likely due to protrusion of gastric mucosa. Possibility of esophagitis not excluded. PLEURA: Bilateral effusions as above. No pneumothorax. BONES: Multilevel degenerative spondylosis of the upper lumbar/ upper thoracic spine and to a lesser degree remaining thoracic spine. . UPPER ABDOMEN: Cholecystectomy. . Ventral wall hernia containing short segment of unobstructed transverse colon. Spleen appears borderline/mildly enlarged measuring nearly 13 cm in AP dimension. . OTHER FINDINGS: Multiple on mildly enlarged left axillary lymph nodes. There localized skin thickening and/or edema left breast. . Clinical correlation with physical exam history recommended to exclude other invasive well on skin or subcutaneous lesion. . Consider myelography of to exclude breast carcinoma IMPRESSION: Findings consistent with pulmonary edema associate with bilateral lower lobe alveolar-type infiltrates and bilateral effusions. . There are multiple of borderline/mildly enlarged left axillary lymph nodes with localized skin thickening and/or edema left breast. Clinical correlation history and physical exam recommended. Consider sonography follow-up necessary to exclude other breast carcinoma. Note this report was placed in PA review folder followup.
[2017-11-03] MEDS: NIFEdipine 90 mg ER Tab PO SCH (10:53)
--- NOTE | 2017-11-03 11:57 | RAD ---
PROCEDURE: CHEST RADIOGRAPH, 1 VIEW HISTORY: SOB COMPARISON: Comparison chest dated the 11/02/2017. FINDINGS: LUNGS: Moderate pulmonary venous congestive changes with bilateral lower lobe alveolar-type infiltrates and bilateral effusions. PLEURA: No pneumothorax. CARDIOVASCULAR: Cardiomegaly OSSEOUS STRUCTURES: No significant abnormalities. VISUALIZED UPPER ABDOMEN: Normal. OTHER FINDINGS: None. IMPRESSION: Moderate pulmonary venous congestive changes with bilateral lower lobe alveolar-type infiltrates and bilateral effusions.
[2017-11-03] MEDS: (Novolin R) Insulin Human Regular 100 units/ml vial SC SCH ×3 (12:19→22:02)
[2017-11-03] MEDS: Amoxicillin-Clav 500-125 mg Tab PO SCH (15:14)
--- NOTE | 2017-11-03 16:47 | CP.PCM.CON ---
History of Present Illness - History of Present Illness History of Present Illness: renal consult note HPI: 42 y/o female with pmx of ESRD on HD, h/o pulmonary HTN, recently discharged from hospital came back with sob and uncontrolled htn. pmh as above fam hx: negative for kidney disease social hx: non smoker, no alcohol no drug abuse vitals reviewed, uncontrolled bp heent normal no jvd seen on hd s1s2 present bilateral air entry equal abd soft no edema ao times 3 A&P: esrd/htn urgency/anemia/anemia/sec hyperpth hd tts, continue per schedule lytes reviewed bp resume meds, UF as tolerated monitor phos levels anemia transfuse as needed, hold epo until bp improves Past Patient History - Infectious Disease Hx of Infectious Diseases: None - Past Medical History & Family History Past Medical History?: Yes - Past Social History Smoking Status: Former Smoker - CARDIAC Hx Hypercholesterolemia: Yes Hx Hypertension: Yes - PULMONARY Hx Pneumonia: Yes - HEENT Hx HEENT Problems: Yes Hx Cataracts: Yes (09/23/14 left) - RENAL Hx Chronic Kidney Disease: Yes - ENDOCRINE/METABOLIC Hx Endocrine Disorders: Yes Hx Diabetes Mellitus Type 2: Yes - HEMATOLOGICAL/ONCOLOGICAL Hx Anemia: Yes - INTEGUMENTARY Hx Dermatological Problems: Yes Other/Comment: right great toe amputation 2009 - MUSCULOSKELETAL/RHEUMATOLOGICAL Hx Musculoskeletal Disorders: Yes Hx Falls: Yes - GASTROINTESTINAL Hx Gastritis: Yes (diabetic gastroparesis) - GENITOURINARY/GYNECOLOGICAL Hx Genitourinary Disorders: Yes Other/Comment: renal failure - PSYCHIATRIC Hx Depression: Yes Hx Substance Use: No - SURGICAL HISTORY Hx Cholecystectomy: Yes (2010) - ANESTHESIA Hx Anesthesia: Yes Hx Anesthesia Reactions: No Hx Malignant Hyperthermia: No Meds Allergies/Adverse Reactions: Allergies Allergy/AdvReac Type Severity Reaction Status Date / Time ketorolac tromethamine Allergy Verified 10/16/17 06:55 [From Toradol] morphine Allergy Verified 10/16/17 06:55 tramadol Allergy RASH Verified 10/16/17 06:55 - Medications Medications: Current Medications Acetaminophen (Tylenol 325mg Tab) 650 mg PO Q6 PRN PRN Reason: Pain, Mild (1-3) Albuterol/Ipratropium (Duoneb 3 Mg/0.5 Mg (3 Ml) Ud) 3 ml INH RQ4 [facility] Last Admin: 11/03/17 16:05 Dose: 3 ml Amoxicillin/Clavulanate Potassium (Augmentin 500 Mg-125 Mg Tab) 1 tab PO Q12H [facility] PRN Reason: Protocol Last Admin: 11/03/17 15:14 Dose: 1 tab Aspirin (Ecotrin) 81 mg PO DAILY [facility] Last Admin: 11/03/17 10:24 Dose: 81 mg Calcium Acetate (Phoslo) 667 mg PO TIDCC [facility] Last Admin: 11/03/17 16:26 Dose: 667 mg Carvedilol (Coreg) 12.5 mg PO BID [facility] Last Admin: 11/03/17 10:25 Dose: 12.5 mg Clonidine HCl (Catapres) 0.3 mg PO Q8 [facility] Last Admin: 11/03/17 13:34 Dose: 0.3 mg Diphenhydramine HCl (Benadryl) 25 mg PO Q8 PRN PRN Reason: Itching / Pruritus Gabapentin (Neurontin) 100 mg PO TID [facility] Last Admin: 11/03/17 15:17 Dose: 100 mg Heparin Sodium (Porcine) (Heparin) 5,000 units SC Q8 [facility] Last Admin: 11/03/17 15:16 Dose: 5,000 units Hydralazine HCl (Apresoline) 25 mg PO Q8 [facility] Last Admin: 11/03/17 13:34 Dose: 25 mg Piperacillin Sod/Tazobactam Sod (Zosyn 2.25 Gm Iv Premix) 2.25 gm in 50 mls @ 100 mls/hr IVPB Q8H [facility] PRN Reason: Protocol Last Admin: 11/03/17 16:27 Dose: Not Given Vancomycin/Sodium Chloride (Vancomycin 1 Gm/Ns 200 Ml) 1 gm in 200 mls @ 133.333 mls/hr IVPB MWF [facility] PRN Reason: Protocol Stop: 11/10/17 09:01 Insulin Human Regular (Novolin R) 0 unit SC ACHS [facility] PRN Reason: Protocol Last Admin: 11/03/17 16:33 Dose: 4 unit Metoclopramide HCl (Reglan) 5 mg PO 0600,1130,1630,2200 [facility] Last Admin: 11/03/17 16:26 Dose: 5 mg Nifedipine (Procardia Xl) 90 mg PO DAILY [facility] Last Admin: 11/03/17 10:53 Dose: 90 mg Oxycodone/Acetaminophen (Percocet 5/325 Mg Tab) 2 tab PO Q4H PRN PRN Reason: Pain, moderate (4-7) Stop: 11/06/17 05:50 Last Admin: 11/03/17 06:56 Dose: 2 tab Prednisone (Prednisone Tab) 5 mg PO DAILY [facility] Last Admin: 11/03/17 10:53 Dose: 5 mg Rosuvastatin Calcium (Crestor) 5 mg PO HS [facility] Results - Vital Signs Recent Vital Signs: Last Vital Signs Temp 98.8 F 11/03/17 12:00 Pulse 77 11/03/17 15:10 Resp 16 11/03/17 15:10 BP 168/83 H 11/03/17 14:24 Pulse Ox 97 11/03/17 15:10 - Labs Result Diagrams: 11/02/17 23:55 11/02/17 23:55 Labs: Laboratory Results - last 24 hr 11/02/17 11/02/17 11/02/17 23:03 23:55 23:55 WBC 17.4 H RBC 2.57 L Hgb 8.7 L Hct 26.3 L MCV 102.3 H D MCH 33.8 H MCHC 33.1 RDW 17.2 H Plt Count 143 MPV 9.0 Neut % (Auto) 88.0 H Lymph % (Auto) 4.8 L [place] % (Auto) 3.6 Eos % (Auto) 2.7 Baso % (Auto) 0.9 Neut # (Auto) 15.2 H Lymph # (Auto) 0.8 L [place] # (Auto) 0.6 Eos # (Auto) 0.5 Baso # (Auto) 0.2 Neutrophils % (Manual) 90 H Lymphocytes % (Manual) 5 L Monocytes % (Manual) 4 Eosinophils % (Manual) 1 Platelet Estimate Normal Sodium 138 Potassium 5.2 Chloride 105 Carbon Dioxide 17 L Anion Gap 21 H BUN 29 H Creatinine 4.6 H Est GFR ( Amer) 13 Est GFR (Non-Af Amer) 11 POC Glucose (mg/dL) 265 H Random Glucose 308 H Calcium 8.1 L Total Bilirubin 0.9 AST 30 ALT 37 Alkaline Phosphatase 132 H NT-Pro-B Natriuret Pep 40232 H Total Protein 7.4 Albumin 4.0 Globulin 3.3 Albumin/Globulin Ratio 1.2 11/03/17 11/03/17 12:01 16:31 WBC RBC Hgb Hct MCV MCH MCHC RDW Plt Count MPV Neut % (Auto) Lymph % (Auto) [place] % (Auto) Eos % (Auto) Baso % (Auto) Neut # (Auto) Lymph # (Auto) [place] # (Auto) Eos # (Auto) Baso # (Auto) Neutrophils % (Manual) Lymphocytes % (Manual) Monocytes % (Manual) Eosinophils % (Manual) Platelet Estimate Sodium Potassium Chloride Carbon Dioxide Anion Gap BUN Creatinine Est GFR ( Amer) Est GFR (Non-Af Amer) POC Glucose (mg/dL) 229 H 270 H Random Glucose Calcium Total Bilirubin AST ALT Alkaline Phosphatase NT-Pro-B Natriuret Pep Total Protein Albumin Globulin Albumin/Globulin Ratio
--- NOTE | 2017-11-03 20:51 | CP.PCM.PN ---
Subjective - Date & Time of Evaluation Date of Evaluation: 11/03/17 Time of Evaluation: 20:51 Objective - Vital Signs/Intake and Output Vital Signs (last 24 hours): Temp Pulse Resp BP Pulse Ox 99.1 F 85 17 144/74 98 11/03/17 16:00 11/03/17 19:22 11/03/17 19:22 11/03/17 19:22 11/03/17 19:22 Intake and Output: 11/03/17 11/04/17 18:59 06:59 Intake Total 560 Output Total 3000 Balance -2440 - Medications Medications: Current Medications Acetaminophen (Tylenol 325mg Tab) 650 mg PO Q6 PRN PRN Reason: Pain, Mild (1-3) Albuterol/Ipratropium (Duoneb 3 Mg/0.5 Mg (3 Ml) Ud) 3 ml INH RQ4 [facility] Last Admin: 11/03/17 19:19 Dose: 3 ml Amoxicillin/Clavulanate Potassium (Augmentin 500 Mg-125 Mg Tab) 1 tab PO Q12H [facility] PRN Reason: Protocol Last Admin: 11/03/17 15:14 Dose: 1 tab Aspirin (Ecotrin) 81 mg PO DAILY [facility] Last Admin: 11/03/17 10:24 Dose: 81 mg Calcium Acetate (Phoslo) 667 mg PO TIDCC [facility] Last Admin: 11/03/17 16:26 Dose: 667 mg Carvedilol (Coreg) 12.5 mg PO BID [facility] Last Admin: 11/03/17 18:01 Dose: 12.5 mg Clonidine HCl (Catapres) 0.3 mg PO Q8 [facility] Last Admin: 11/03/17 13:34 Dose: 0.3 mg Diphenhydramine HCl (Benadryl) 25 mg PO Q8 PRN PRN Reason: Itching / Pruritus Gabapentin (Neurontin) 100 mg PO TID [facility] Last Admin: 11/03/17 18:01 Dose: 100 mg Heparin Sodium (Porcine) (Heparin) 5,000 units SC Q8 [facility] Last Admin: 11/03/17 15:16 Dose: 5,000 units Hydralazine HCl (Apresoline) 25 mg PO Q8 [facility] Last Admin: 11/03/17 13:34 Dose: 25 mg Piperacillin Sod/Tazobactam Sod (Zosyn 2.25 Gm Iv Premix) 2.25 gm in 50 mls @ 100 mls/hr IVPB Q8H [facility] PRN Reason: Protocol Last Admin: 11/03/17 16:27 Dose: Not Given Vancomycin/Sodium Chloride (Vancomycin 1 Gm/Ns 200 Ml) 1 gm in 200 mls @ 133.333 mls/hr IVPB MWF [facility] PRN Reason: Protocol Stop: 11/10/17 09:01 Insulin Human Regular (Novolin R) 0 unit SC ACHS [facility] PRN Reason: Protocol Last Admin: 11/03/17 16:33 Dose: 4 unit Metoclopramide HCl (Reglan) 5 mg PO 0600,1130,1630,2200 [facility] Last Admin: 11/03/17 16:26 Dose: 5 mg Nifedipine (Procardia Xl) 90 mg PO DAILY [facility] Last Admin: 11/03/17 10:53 Dose: 90 mg Oxycodone/Acetaminophen (Percocet 5/325 Mg Tab) 2 tab PO Q4H [facility]N PRN Reason: Pain, moderate (4-7) Stop: 11/06/17 05:50 Last Admin: 11/03/17 06:56 Dose: 2 tab Prednisone (Prednisone Tab) 5 mg PO DAILY [facility] [place] Last Admin: 11/03/17 10:53 Dose: 5 mg Rosuvastatin Calcium (Crestor) 5 mg PO HS [facility] - Labs Labs: 11/02/17 23:55 11/02/17 23:55
--- NOTE | 2017-11-03 23:35 | CON ---
DATE: 11/03/2017 REASON FOR CONSULTATION: Shortness of breath. HISTORY OF PRESENT ILLNESS: The patient is 42-year-old female, who has a history of end-stage renal disease, on hemodialysis, Sunday, Sunday, and Sunday. The patient's last hemodialysis was yesterday as an inpatient. The patient was admitted on 10/16/2017 for chest pain and non-ST elevation myocardial infarction was ruled in, and the patient refused cardiac catheterization. The patient did experience abdominal pain and diarrhea; however, C. difficile was negative. Abdomen and pelvis CT scan revealed no acute findings. The patient did require balloon angioplasty of the left upper arm arteriovenous fistula. The patient was discharged yesterday; however, upon discharge she did feel shortness of breath. The patient presented after that because of worsening shortness of breath and was found to be in volume overload requiring emergency hemodialysis with subsequent improvement. The patient did report chest discomfort without shortness of breath. No reported ventricular arrhythmia or hypotension since the patient's presentation to the ICU. SOCIAL HISTORY: Nonsmoker. She lives with her mother. MEDICATIONS: Hydralazine 25 mg every 8 hours, Augmentin 1 tablet every 12 hours, Benadryl 25 mg p.o. every 8 hours, clonidine 0.2 mg every 8 hours, Coreg 12.5 mg once a day, Crestor 5 mg once a day, aspirin 81 mg once a day, gabapentin 100 mg t. i. d., prednisone 5 mg once a day, PhosLo 1 tablet t. i. d., Procardia XL 90 mg once a day, vancomycin 1 gm intravenously Sunday, Sunday, and Sunday, and Zosyn 2.25 gm intravenously every 8 hours. PAST MEDICAL HISTORY: Hypertension; diabetes mellitus; end-stage renal disease, on hemodialysis; chronic obstructive lung disease. REVIEW OF SYSTEMS: The patient denies any fever or chills. The patient denies any dizziness or syncope. No recurrence of the patient's diarrhea or abdominal pain. PHYSICAL EXAMINATION: GENERAL: The patient is a middle-aged female, who does not appear to be in acute distress. VITAL SIGNS: Blood pressure 180/74, heart rate 78, respirations 16, and temperature 98.8. HEENT: Pale conjunctiva. NECK: No JVD. CHEST : Bibasal scattered crepitations. HEART: S1 and S2 regular. No pericardial rub or gallop. ABDOMEN: Soft. EXTREMITIES: Trace left leg edema. No calf tenderness. LABORATORY DATA: SMA-7: Sodium of 138, potassium 5.2, chloride 105, CO2 of 17, glucose 308, BUN 29, and creatinine 4.6. CBC: White count 17.4, hemoglobin 8.7, hematocrit 26.3, and platelet count 146,000. Chest CT scan revealed pulmonary edema, 03:31, bilateral lower lobe alveolar type infiltrate and bilateral effusion. There are multiple borderline/mildly enlarged axillary lymph nodes with localized skin thickening and/or edema of the left breast. Consult sonography followup. Necessary to exclude breast carcinoma. Chest x-ray revealed mild cardiomegaly with [id number] CHF picture. EKG revealed sinus rhythm, possible left atrial enlargement, left axis deviation. Echocardiographic study performed 5 days ago revealed [id number]-[id number] concentric LVH with normal ejection fraction. Moderate dilated left atrium. Right ventricular systolic pressure 39 mmHg. Sclerocalcific aortic root. ASSESSMENT: 1. Status post volume overload. 2. Diastolic heart failure. 3. History of [id number] myocardial infarction. 4. End-stage renal disease, on hemodialysis. 5. Hypertension and diabetes mellitus. 6. Anemia. 7. Consider bilateral pneumonia with bilateral pleural effusion. RECOMMENDATIONS: Continue clonidine 0.2 mg every 8 hours, Coreg 12.5 mg twice a day, aspirin 81 mg once a day, subcutaneous heparin 5000 units every 8 hours, Procardia XL 90 mg once a day, IV vancomycin and IV Zosyn. Obtain one set of troponin and repeat 12-lead EKG. The patient was still presented with cardiac catheterization; however, she refused the idea of going for the procedure. Olayinka Brown MD
--- NOTE | 2017-11-03 23:54 | CP.PCM.CON ---
History of Present Illness - History of Present Illness History of Present Illness: INFECTIOUS DISEASE CONSULT; HPI; 42-year-old female with history of ESRD on HD mwf, hx of pulmonary hypertension , diabetes mellitus2, peripheral vascular disease , depression recently being treated for CHF and pneumonia and recently discharged on 11/02/17 who returns complaining of severe shortness of breath and unable to breathe. Patient denies any chest pain,, abdominal pain, palpitations. Patient does complain of some nausea at times but denies vomiting. Patient underwent emergency hemodialysis this a.m. Patient also was found to have leukocytosis of 17.4 and patient was given a dose of vancomycin 1 g with IV Zithromax also. CXR ON ADMISSION SHOWED MODERATE PERIPHERAL VASCULAR CONGESTION WITH BILATERAL LOWER LOBE ALVEOLAR TYPE INFILTRATES AND BILATERAL PLEURAL EFFUSIONS. INFECTIOUS DISEASE CONSULTATION REQUESTED BY PMD FOR INCREASING LEUKOCYTOSIS/ PULMONARY EDEMA AND SUPERIMPOSED PNEUMONIA. PATIENT DENIES ANY DIARRHEA. Patient denies any fever or chills. PATIENT HAD RIGHT UPPER ARM PICC LINE WHICH WAS REMOVED ON 11/02/17 BEFORE DISCHARGE. Patient refused PICC line or TLC insertion today as reported by RN. Presently has no IV access. Patient received hemodialysis today via left AVF.. PMH: Anemia, Depression, Diabetes, Gastritis (diabetic gastroparesis), HTN, Hypercholesterolemia, Pneumonia, End Stage Renal Disease (Dialysis M-W-), Chronic Kidney Disease Surgical History: Cholecystectomy (2010) ALLERGY; KETOROLAC, TRYMETHAMINE, MORPHINE, TRAMADOL. Review of Systems - Constitutional Constitutional: absent: Chills, Fever - EENT Nose/Mouth/Throat: absent: Mouth Lesions - Cardiovascular Cardiovascular: Dyspnea, Rapid Heart Rate - Respiratory Respiratory: Cough (DRY,), Dyspnea - Gastrointestinal Gastrointestinal: Nausea. absent: Abdominal Pain, Loose Stools, Vomiting - Genitourinary Genitourinary: absent: Dysuria - Neurological Neurological: absent: Headaches - Psychiatric Psychiatric: Depression - Hematologic/Lymphatic Hematologic: As Per HPI. absent: Easy Bleeding, Easy Bruising Past Patient History - Infectious Disease Hx of Infectious Diseases: None - Past Medical History & Family History Past Medical History?: Yes - Past Social History Smoking Status: Former Smoker - CARDIAC Hx Hypercholesterolemia: Yes Hx Hypertension: Yes - PULMONARY Hx Pneumonia: Yes - HEENT Hx HEENT Problems: Yes Hx Cataracts: Yes (09/23/14 left) - RENAL Hx Chronic Kidney Disease: Yes - ENDOCRINE/METABOLIC Hx Endocrine Disorders: Yes Hx Diabetes Mellitus Type 2: Yes - HEMATOLOGICAL/ONCOLOGICAL Hx Anemia: Yes - INTEGUMENTARY Hx Dermatological Problems: Yes Other/Comment: right great toe amputation 2009 - MUSCULOSKELETAL/RHEUMATOLOGICAL Hx Musculoskeletal Disorders: Yes Hx Falls: Yes - GASTROINTESTINAL Hx Gastritis: Yes (diabetic gastroparesis) - GENITOURINARY/GYNECOLOGICAL Hx Genitourinary Disorders: Yes Other/Comment: renal failure - PSYCHIATRIC Hx Depression: Yes Hx Substance Use: No - SURGICAL HISTORY Hx Cholecystectomy: Yes (2010) - ANESTHESIA Hx Anesthesia: Yes Hx Anesthesia Reactions: No Hx Malignant Hyperthermia: No Meds Allergies/Adverse Reactions: Allergies Allergy/AdvReac Type Severity Reaction Status Date / Time ketorolac tromethamine Allergy Verified 10/16/17 06:55 [From Toradol] morphine Allergy Verified 10/16/17 06:55 tramadol Allergy RASH Verified 10/16/17 06:55 - Medications Medications: Current Medications Acetaminophen (Tylenol 325mg Tab) 650 mg PO Q6 PRN PRN Reason: Pain, Mild (1-3) Albuterol/Ipratropium (Duoneb 3 Mg/0.5 Mg (3 Ml) Ud) 3 ml INH RQ4 [facility] Last Admin: 11/03/17 23:28 Dose: 3 ml Amoxicillin/Clavulanate Potassium (Augmentin 500 Mg-125 Mg Tab) 1 tab PO Q12H [facility] PRN Reason: Protocol Last Admin: 11/03/17 15:14 Dose: 1 tab Aspirin (Ecotrin) 81 mg PO DAILY [facility] Last Admin: 11/03/17 10:24 Dose: 81 mg Calcium Acetate (Phoslo) 667 mg PO TIDCC [facility] Last Admin: 11/03/17 16:26 Dose: 667 mg Carvedilol (Coreg) 12.5 mg PO BID [facility] Last Admin: 11/03/17 18:01 Dose: 12.5 mg Clonidine HCl (Catapres) 0.3 mg PO Q8 [facility] Last Admin: 11/03/17 21:57 Dose: 0.3 mg Diphenhydramine HCl (Benadryl) 25 mg PO Q8 PRN PRN Reason: Itching / Pruritus Gabapentin (Neurontin) 100 mg PO TID [facility] Last Admin: 11/03/17 18:01 Dose: 100 mg Heparin Sodium (Porcine) (Heparin) 5,000 units SC Q8 [facility] Last Admin: 11/03/17 21:58 Dose: 5,000 units Hydralazine HCl (Apresoline) 25 mg PO Q8 [facility] Last Admin: 11/03/17 21:57 Dose: 25 mg Piperacillin Sod/Tazobactam Sod (Zosyn 2.25 Gm Iv Premix) 2.25 gm in 50 mls @ 100 mls/hr IVPB Q8H [facility] PRN Reason: Protocol Last Admin: 11/03/17 16:27 Dose: Not Given Vancomycin/Sodium Chloride (Vancomycin 1 Gm/Ns 200 Ml) 1 gm in 200 mls @ 133.333 mls/hr IVPB MWF [facility] PRN Reason: Protocol Stop: 11/10/17 09:01 Insulin Human Regular (Novolin R) 0 unit SC ACHS [facility] PRN Reason: Protocol Last Admin: 11/03/17 22:02 Dose: 2 unit Metoclopramide HCl (Reglan) 5 mg PO 0600,1130,1630,2200 [facility] Last Admin: 11/03/17 21:57 Dose: 5 mg Nifedipine (Procardia Xl) 90 mg PO DAILY [facility] Last Admin: 11/03/17 10:53 Dose: 90 mg Oxycodone/Acetaminophen (Percocet 5/325 Mg Tab) 2 tab PO Q4H PRN PRN Reason: Pain, moderate (4-7) Stop: 11/06/17 05:50 Last Admin: 11/03/17 22:07 Dose: 2 tab Prednisone (Prednisone Tab) 5 mg PO DAILY [facility] Last Admin: 11/03/17 10:53 Dose: 5 mg Rosuvastatin Calcium (Crestor) 5 mg PO HS [facility] Last Admin: 11/03/17 21:58 Dose: 5 mg Physical Exam - Constitutional Appears: No Acute Distress - Head Exam Head Exam: NORMAL INSPECTION - Eye Exam Eye Exam: EOMI, PERRL - ENT Exam ENT Exam: Normal Oropharynx - Neck Exam Neck exam: Positive for: Normal Inspection - Respiratory Exam Respiratory Exam: Rales (BASILAR RALES) - Cardiovascular Exam Cardiovascular Exam: REGULAR RHYTHM, +S1, +S2, +S4 - GI/Abdominal Exam GI & Abdominal Exam: Normal Bowel Sounds, Soft - Extremities Exam Extremities exam: Positive for: pedal pulses present. Negative for: calf tenderness, pedal edema - Neurological Exam Neurological exam: Alert, CN II-XII Intact, Oriented x3, Reflexes Normal - Skin Skin Exam: Normal Color, Warm Results - Vital Signs Recent Vital Signs: Last Vital Signs Temp 98.4 F 11/03/17 20:00 Pulse 83 11/03/17 21:00 Resp 21 11/03/17 21:00 BP 148/71 11/03/17 20:22 Pulse Ox 96 11/03/17 21:00 - Labs Result Diagrams: 11/02/17 23:55 11/02/17 23:55 Labs: Laboratory Results - last 24 hr 11/02/17 11/02/17 11/03/17 23:55 23:55 12:01 WBC 17.4 H RBC 2.57 L Hgb 8.7 L Hct 26.3 L MCV 102.3 H D MCH 33.8 H MCHC 33.1 RDW 17.2 H Plt Count 143 MPV 9.0 Neut % (Auto) 88.0 H Lymph % (Auto) 4.8 L [place] % (Auto) 3.6 Eos % (Auto) 2.7 Baso % (Auto) 0.9 Neut # (Auto) 15.2 H Lymph # (Auto) 0.8 L [place] # (Auto) 0.6 Eos # (Auto) 0.5 Baso # (Auto) 0.2 Neutrophils % (Manual) 90 H Lymphocytes % (Manual) 5 L Monocytes % (Manual) 4 Eosinophils % (Manual) 1 Platelet Estimate Normal Sodium 138 Potassium 5.2 Chloride 105 Carbon Dioxide 17 L Anion Gap 21 H BUN 29 H Creatinine 4.6 H Est GFR ( Amer) 13 Est GFR (Non-Af Amer) 11 POC Glucose (mg/dL) 229 H Random Glucose 308 H Calcium 8.1 L Total Bilirubin 0.9 AST 30 ALT 37 Alkaline Phosphatase 132 H NT-Pro-B Natriuret Pep 27022 H Total Protein 7.4 Albumin 4.0 Globulin 3.3 Albumin/Globulin Ratio 1.2 11/03/17 16:31 WBC RBC Hgb Hct MCV MCH MCHC RDW Plt Count MPV Neut % (Auto) Lymph % (Auto) [place] % (Auto) Eos % (Auto) Baso % (Auto) Neut # (Auto) Lymph # (Auto) [place] # (Auto) Eos # (Auto) Baso # (Auto) Neutrophils % (Manual) Lymphocytes % (Manual) Monocytes % (Manual) Eosinophils % (Manual) Platelet Estimate Sodium Potassium Chloride Carbon Dioxide Anion Gap BUN Creatinine Est GFR ( Amer) Est GFR (Non-Af Amer) POC Glucose (mg/dL) 270 H Random Glucose Calcium Total Bilirubin AST ALT Alkaline Phosphatase NT-Pro-B Natriuret Pep Total Protein Albumin Globulin Albumin/Globulin Ratio - Imaging and Cardiology CT scan - chestWITHOUT CONTRAST Status: Report reviewed by me (PULMONARY EDEMA WITH BILATERAL LOWER LOBE ALVEOLAR TYPE INFILTRATES WITH BILATERAL PLEURAL EFFUSIONS. lEFT AXILLARY LYMPH ADENOPATHY WITH LOCALIZED EDEMA LEFT BREAST ?BREASTCA. CONSIDER SONOGRAPHY LEFT BREAST.) Assessment & Plan (1) Pulmonary edema Assessment and Plan: patient received extra hemodialysis today. As per renal. Status: Acute (2) Pneumonia Assessment and Plan: bilateral lower lobe pneumonia with left axillary lymphadenopathy and localized edema of the left breast. Questionable aspiration vs neoplastic process cannot be completely ruled out. Consider ultrasound of the breast and mammogram to rule out carcinoma of the left breast . Continue IV vancomycin 1 g post each hemodialysis mwf [id number]. By mouth Augmentin 500 twice a day for now as patient has no IV access. RESUME iv zOSYN 2.25 iv PIGGYBACK EVERY 8 HOURLY ONCE iv ACCESS IS OBTAINED. f/u cbc with differential in a.m. Case discussed with the staff/RN OCCUPATIONAL HYGIENIST.. Status: Acute (3) Anemia Assessment and Plan: HEMOGLOBIN 8.7/HCT 26.3 WATCH H/H.. Status: Acute (4) ESRD (end stage renal disease) Status: Acute (5) Edema of breast Assessment and Plan: ULTRASOUND LEFT BREAST. Status: Acute (6) DM2 (diabetes mellitus, type 2) Status: Chronic
--- NOTE | 2017-11-03 23:56 | CP.PCM.PN ---
Subjective - Date & Time of Evaluation Date of Evaluation: 11/03/17 Time of Evaluation: 19:40 - Subjective Subjective: Pt seen and examined at bedside Objective - Vital Signs/Intake and Output Vital Signs (last 24 hours): Temp Pulse Resp BP Pulse Ox 98.4 F 83 21 148/71 96 11/03/17 20:00 11/03/17 21:00 11/03/17 21:00 11/03/17 20:22 11/03/17 21:00 Intake and Output: 11/03/17 11/04/17 18:59 06:59 Intake Total 560 250 Output Total 3000 0 Balance -2440 250 - Medications Medications: Current Medications Acetaminophen (Tylenol 325mg Tab) 650 mg PO Q6 PRN PRN Reason: Pain, Mild (1-3) Albuterol/Ipratropium (Duoneb 3 Mg/0.5 Mg (3 Ml) Ud) 3 ml INH RQ4 [facility] Last Admin: 11/03/17 23:28 Dose: 3 ml Amoxicillin/Clavulanate Potassium (Augmentin 500 Mg-125 Mg Tab) 1 tab PO Q12H [facility] PRN Reason: Protocol Last Admin: 11/03/17 15:14 Dose: 1 tab Aspirin (Ecotrin) 81 mg PO DAILY [facility] Last Admin: 11/03/17 10:24 Dose: 81 mg Calcium Acetate (Phoslo) 667 mg PO TIDCC [facility] Last Admin: 11/03/17 16:26 Dose: 667 mg Carvedilol (Coreg) 12.5 mg PO BID [facility] Last Admin: 11/03/17 18:01 Dose: 12.5 mg Clonidine HCl (Catapres) 0.3 mg PO Q8 [facility] Last Admin: 11/03/17 21:57 Dose: 0.3 mg Diphenhydramine HCl (Benadryl) 25 mg PO Q8 PRN PRN Reason: Itching / Pruritus Gabapentin (Neurontin) 100 mg PO TID [facility] Last Admin: 11/03/17 18:01 Dose: 100 mg Heparin Sodium (Porcine) (Heparin) 5,000 units SC Q8 [facility] Last Admin: 11/03/17 21:58 Dose: 5,000 units Hydralazine HCl (Apresoline) 25 mg PO Q8 [facility] Last Admin: 11/03/17 21:57 Dose: 25 mg Piperacillin Sod/Tazobactam Sod (Zosyn 2.25 Gm Iv Premix) 2.25 gm in 50 mls @ 100 mls/hr IVPB Q8H [facility] PRN Reason: Protocol Last Admin: 11/03/17 16:27 Dose: Not Given Vancomycin/Sodium Chloride (Vancomycin 1 Gm/Ns 200 Ml) 1 gm in 200 mls @ 133.333 mls/hr IVPB MWF [facility] PRN Reason: Protocol Stop: 11/10/17 09:01 Insulin Human Regular (Novolin R) 0 unit SC ACHS [facility] PRN Reason: Protocol Last Admin: 11/03/17 22:02 Dose: 2 unit Metoclopramide HCl (Reglan) 5 mg PO 0600,1130,1630,2200 [facility] Last Admin: 11/03/17 21:57 Dose: 5 mg Nifedipine (Procardia Xl) 90 mg PO DAILY [facility] Last Admin: 11/03/17 10:53 Dose: 90 mg Oxycodone/Acetaminophen (Percocet 5/325 Mg Tab) 2 tab PO Q4H PRN PRN Reason: Pain, moderate (4-7) Stop: 11/06/17 05:50 Last Admin: 11/03/17 22:07 Dose: 2 tab Prednisone (Prednisone Tab) 5 mg PO DAILY [facility] Last Admin: 11/03/17 10:53 Dose: 5 mg Rosuvastatin Calcium (Crestor) 5 mg PO HS [facility] Last Admin: 11/03/17 21:58 Dose: 5 mg - Labs Labs: 11/02/17 23:55 11/02/17 23:55
[2017-11-04] MEDS: Amoxicillin-Clav 500-125 mg Tab PO SCH ×3 (00:05→23:22)
[2017-11-04] MEDS: Albuterol-Ipratrop 3 mg / 0.5 (3 ml) UD INH SCH ×5 (03:06→20:00)
[2017-11-04] MEDS: Oxycodone/Acetaminophen 5/325 mg Tab PO PRN ×2 (05:30→21:51)
[2017-11-04] MEDS: Piperacill/Tazo 2.25gm in Dex 2.25 GM/50 ML BAG IVPB SCH ×4 (08:00→23:41)
[2017-11-04] MEDS: (Novolin R) Insulin Human Regular 100 units/ml vial SC SCH ×4 (08:19→21:41)
[2017-11-04] MEDS: NIFEdipine 90 mg ER Tab PO SCH (09:44)
[2017-11-04 14:04] LABS: BASO # 0.1 K/uL (0.0-0.2); EOS # 0.7 K/uL (0.0-0.7); EOS % 5.5 % (0.0-4.0); HEMOGLOBIN 8.2 g/dL (11.0-16.0); LYMPH # 1.6 K/uL (1.0-4.3); LYMPH % 11.7 % (20.0-40.0); MEAN CELL VOLUME 100.8 fL (81.0-99.0); MEAN CORPUSCULAR HEMOGLOBIN 33.9 pg (27.0-31.0); MEAN CORPUSCULAR HGB CONC 33.6 g/dL (33.0-37.0); MEAN PLATELET VOLUME 8.5 fL (7.2-11.7); MONO # 0.7 K/uL (0.0-0.8); MONO % 5.5 % (0.0-10.0); NEUT # 10.4 K/uL (1.8-7.0); NEUT % 76.3 % (50.0-75.0); RBC 2.42 Mil/uL (3.80-5.20); WHITE BLOOD COUNT 13.6 K/uL (4.8-10.8)
[2017-11-04 14:40] LABS: ALB/GLOB RATIO 1.3 (1.0-2.1); ALBUMIN 3.9 g/dL (3.5-5.0); CALCIUM 8.3 mg/dl (8.6-10.4)
[2017-11-04 14:55] LABS: TROPONIN I 0.163 ng/mL (0.00-0.120)
--- NOTE | 2017-11-04 15:03 | RAD ---
HISTORY: SOB COMPARISON: Comparison made with prior CT scan chest 11/03/2017. FINDINGS: LUNGS: Poor inspiration with low lung volumes. Mild central pulmonary vascular congestive changes and bilateral lower lobe alveolar-type infiltrates again noted. . Atelectasis secondary to poor inspiration may contribute as well. Small bilateral effusions are less well seen PLEURA: No significant pleural effusion identified, no pneumothorax apparent. CARDIOVASCULAR: Cardiomegaly. OSSEOUS STRUCTURES: No significant abnormalities. VISUALIZED UPPER ABDOMEN: Normal. OTHER FINDINGS: None. IMPRESSION: Poor inspiration with low lung volumes. Mild central pulmonary vascular congestive changes and bilateral lower lobe alveolar-type infiltrates again noted. . Atelectasis secondary to poor inspiration may contribute as well. Small bilateral effusions are less well seen
--- NOTE | 2017-11-04 15:52 | CP.CCUPN ---
CCU Subjective - Physician Review Events Since Last Encounter (Free Text): 11/04/17 15:51 patient seen and examined Previous events noted Being treated for pneumonia Status post hemodialysis yesterday Sitting comfortably in no distress Afebrile Denies any cough, denies chest pain, denies shortness of breath CCU Objective - Vital Signs / Intake & Output Vital Signs (Last 4 hours): Vital Signs Temp Pulse Resp BP Pulse Ox 11/04/17 15:22 79 15 181/95 H 96 11/04/17 15:00 80 19 96 11/04/17 14:22 79 17 160/76 H 93 L 11/04/17 14:00 81 17 98 11/04/17 13:22 82 18 148/68 95 11/04/17 13:00 84 14 97 11/04/17 12:22 86 15 160/76 H 92 L 11/04/17 12:00 98.6 F 82 19 98 Intake and Output (Last 8hrs): Intake & Output 11/04/17 11/04/17 11/04/17 06:59 14:59 22:59 Intake Total 170 370 50 Output Total 0 0 0 Balance 170 370 50 Weight 221 lb 1.978 oz Intake: Oral 170 370 50 Output: Urine 0 0 0 Urine, Voided 0 0 0 Other: # Bowel Movements 0 0 - Physical Exam Head: Positive for: Atraumatic, Normocephalic Mouth: Positive for: Moist Mucous Membranes Neck: Positive for: Normal Range of Motion Respiratory/Chest: Positive for: Clear to Auscultation Cardiovascular: Positive for: Regular Rate and Rhythm Abdomen: Positive for: Normal Bowel Sounds Upper Extremity: Positive for: Normal Inspection Lower Extremity: Positive for: Normal Inspection Skin: Positive for: Warm, Dry Psychiatric: Positive for: Alert, Oriented x 3 - Medications Active Medications: Active Medications Generic Name Dose Route Start Last Admin Trade Name Freq PRN Reason Stop Dose Admin Acetaminophen 650 mg 11/03/17 05:49 Tylenol 325mg Tab PO Q6 PRN Pain, Mild (1-3) Albuterol/Ipratropium 3 ml 11/03/17 08:00 11/04/17 11:37 Duoneb 3 Mg/0.5 Mg (3 Ml) Ud INH 3 ml RQ4 [facility] Administration Amoxicillin/Clavulanate Potassium 1 tab 11/03/17 11:30 11/04/17 11:53 Augmentin 500 Mg-125 Mg Tab PO 1 tab Q12H [facility] Administration Protocol Aspirin 81 mg 11/03/17 10:00 11/04/17 09:43 Ecotrin PO 81 mg DAILY [facility] Administration Calcium Acetate 667 mg 11/03/17 08:00 11/04/17 11:52 Phoslo PO 667 mg TIDCC [facility] Administration Carvedilol 12.5 mg 11/03/17 10:00 11/04/17 09:43 Coreg PO 12.5 mg BID [facility] Administration Clonidine HCl 0.3 mg 11/03/17 06:00 11/04/17 15:07 Catapres PO 0.3 mg Q8 [facility] Administration Diphenhydramine HCl 25 mg 11/03/17 06:12 Benadryl PO Q8 PRN Itching / Pruritus Gabapentin 100 mg 11/03/17 10:00 11/04/17 15:09 Neurontin PO 100 mg TID [facility] Administration Heparin Sodium (Porcine) 5,000 units 11/03/17 06:00 11/04/17 15:01 Heparin SC 5,000 units Q8 [facility] Administration Hydralazine HCl 25 mg 11/03/17 06:00 11/04/17 14:58 Apresoline PO 25 mg Q8 [facility] Administration Piperacillin Sod/Tazobactam Sod 2.25 gm in 50 mls @ 100 mls/hr 11/03/17 08:00 11/04/17 08:00 Zosyn 2.25 Gm Iv Premix IVPB Not Given Q8H [facility] Protocol Vancomycin/Sodium Chloride 1 gm in 200 mls @ 133.333 mls/hr 11/05/17 09:00 Vancomycin 1 Gm/Ns 200 Ml IVPB 11/10/17 09:01 MWF [facility] Protocol Insulin Human Regular 0 unit 11/03/17 11:30 11/04/17 11:50 Novolin R SC 2 unit ACHS [facility] Administration Protocol Metoclopramide HCl 5 mg 11/03/17 11:30 11/04/17 11:54 Reglan PO 5 mg 0600,1130,1630,2200 [facility] Administration Nifedipine 90 mg 11/03/17 10:00 11/04/17 09:44 Procardia Xl PO 90 mg DAILY [facility] Administration Oxycodone/Acetaminophen 2 tab 11/03/17 05:49 11/04/17 05:30 Percocet 5/325 Mg Tab PO 11/06/17 05:50 2 tab Q4H PRN Administration Pain, moderate (4-7) Prednisone 5 mg 11/03/17 10:00 11/04/17 09:44 Prednisone Tab PO 5 mg DAILY [facility] Administration Rosuvastatin Calcium 5 mg 11/03/17 22:00 11/03/17 21:58 Crestor PO 5 mg HS [facility] Administration - Patient Studies Lab Studies: Microbiology Studies 11/03/17 06:36 MRSA Culture (Admit) - Final Naris MRSA NOT DETECTED 11/03/17 08:03 Blood Culture - Preliminary Blood NO GROWTH AFTER 24 HOURS 11/03/17 08:03 Blood Culture - Preliminary Blood NO GROWTH AFTER 24 HOURS Lab Studies 11/04/17 11/04/17 11/04/17 Range/Units 13:58 13:58 11:17 WBC 13.6 H (4.8-10.8) K/uL RBC 2.42 L (3.80-5.20) Mil/uL Hgb 8.2 L (11.0-16.0) g/dL Hct 24.4 L (34.0-47.0) % MCV 100.8 H (81.0-99.0) fL MCH 33.9 H (27.0-31.0) pg MCHC 33.6 (33.0-37.0) g/dL RDW 17.0 H (11.5-14.5) % Plt Count 154 (130-400) K/uL MPV 8.5 (7.2-11.7) fL Neut % (Auto) 76.3 H (50.0-75.0) % Lymph % (Auto) 11.7 L (20.0-40.0) % [place] % (Auto) 5.5 (0.0-10.0) % Eos % (Auto) 5.5 H (0.0-4.0) % Baso % (Auto) 1.0 (0.0-2.0) % Neut # (Auto) 10.4 H (1.8-7.0) K/uL Lymph # (Auto) 1.6 (1.0-4.3) K/uL [place] # (Auto) 0.7 (0.0-0.8) K/uL Eos # (Auto) 0.7 (0.0-0.7) K/uL Baso # (Auto) 0.1 (0.0-0.2) K/uL Sodium 140 (132-148) mmol/L Potassium 5.0 (3.6-5.2) mmol/L Chloride 102 (98-107) mmol/L Carbon Dioxide 24 (22-30) mmol/L Anion Gap 20 (10-20) BUN 31 H (7-17) mg/dL Creatinine 5.5 H (0.7-1.2) mg/dL Est GFR ( Amer) 10 Est GFR (Non-Af Amer) 9 POC Glucose (mg/dL) 162 H (65-110) mg/dL Random Glucose 181 H (65-105) mg/dL Calcium 8.3 L (8.6-10.4) mg/dl Phosphorus 4.7 H (2.5-4.5) mg/dL Magnesium 2.1 (1.6-2.3) mg/dL Total Bilirubin 0.7 (0.2-1.3) mg/dL AST 21 (14-36) U/L ALT 36 (9-52) U/L Alkaline Phosphatase 126 (38-126) U/L Troponin I 0.1630 H* (0.00-0.120) ng/mL Total Protein 6.9 (6.3-8.3) g/dL Albumin 3.9 (3.5-5.0) g/dL Globulin 2.9 (2.2-3.9) gm/dL Albumin/Globulin Ratio 1.3 (1.0-2.1) 11/04/17 11/04/17 11/03/17 Range/Units 07:19 01:18 21:08 WBC (4.8-10.8) K/uL RBC (3.80-5.20) Mil/uL Hgb (11.0-16.0) g/dL Hct (34.0-47.0) % MCV (81.0-99.0) fL MCH (27.0-31.0) pg MCHC (33.0-37.0) g/dL RDW (11.5-14.5) % Plt Count (130-400) K/uL MPV (7.2-11.7) fL Neut % (Auto) (50.0-75.0) % Lymph % (Auto) (20.0-40.0) % [place] % (Auto) (0.0-10.0) % Eos % (Auto) (0.0-4.0) % Baso % (Auto) (0.0-2.0) % Neut # (Auto) (1.8-7.0) K/uL Lymph # (Auto) (1.0-4.3) K/uL [place] # (Auto) (0.0-0.8) K/uL Eos # (Auto) (0.0-0.7) K/uL Baso # (Auto) (0.0-0.2) K/uL Sodium (132-148) mmol/L Potassium (3.6-5.2) mmol/L Chloride (98-107) mmol/L Carbon Dioxide (22-30) mmol/L Anion Gap (10-20) BUN (7-17) mg/dL Creatinine (0.7-1.2) mg/dL Est GFR ( Amer) Est GFR (Non-Af Amer) POC Glucose (mg/dL) 181 H 232 H 321 H (65-110) mg/dL Random Glucose (65-105) mg/dL Calcium (8.6-10.4) mg/dl Phosphorus (2.5-4.5) mg/dL Magnesium (1.6-2.3) mg/dL Total Bilirubin (0.2-1.3) mg/dL AST (14-36) U/L ALT (9-52) U/L Alkaline Phosphatase (38-126) U/L Troponin I (0.00-0.120) ng/mL Total Protein (6.3-8.3) g/dL Albumin (3.5-5.0) g/dL Globulin (2.2-3.9) gm/dL Albumin/Globulin Ratio (1.0-2.1) 11/03/18 Range/Units 16:31 WBC (4.8-10.8) K/uL RBC (3.80-5.20) Mil/uL Hgb (11.0-16.0) g/dL Hct (34.0-47.0) % MCV (81.0-99.0) fL MCH (27.0-31.0) pg MCHC (33.0-37.0) g/dL RDW (11.5-14.5) % Plt Count (130-400) K/uL MPV (7.2-11.7) fL Neut % (Auto) (50.0-75.0) % Lymph % (Auto) (20.0-40.0) % [place] % (Auto) (0.0-10.0) % Eos % (Auto) (0.0-4.0) % Baso % (Auto) (0.0-2.0) % Neut # (Auto) (1.8-7.0) K/uL Lymph # (Auto) (1.0-4.3) K/uL [place] # (Auto) (0.0-0.8) K/uL Eos # (Auto) (0.0-0.7) K/uL Baso # (Auto) (0.0-0.2) K/uL Sodium (132-148) mmol/L Potassium (3.6-5.2) mmol/L Chloride (98-107) mmol/L Carbon Dioxide (22-30) mmol/L Anion Gap (10-20) BUN (7-17) mg/dL Creatinine (0.7-1.2) mg/dL Est GFR ( Amer) Est GFR (Non-Af Amer) POC Glucose (mg/dL) 270 H (65-110) mg/dL Random Glucose (65-105) mg/dL Calcium (8.6-10.4) mg/dl Phosphorus (2.5-4.5) mg/dL Magnesium (1.6-2.3) mg/dL Total Bilirubin (0.2-1.3) mg/dL AST (14-36) U/L ALT (9-52) U/L Alkaline Phosphatase (38-126) U/L Troponin I (0.00-0.120) ng/mL Total Protein (6.3-8.3) g/dL Albumin (3.5-5.0) g/dL Globulin (2.2-3.9) gm/dL Albumin/Globulin Ratio (1.0-2.1) Laboratory Results - last 24 hr 11/03/17 11/03/17 11/04/17 16:31 21:08 01:18 WBC RBC Hgb Hct MCV MCH MCHC RDW Plt Count MPV Neut % (Auto) Lymph % (Auto) [place] % (Auto) Eos % (Auto) Baso % (Auto) Neut # (Auto) Lymph # (Auto) [place] # (Auto) Eos # (Auto) Baso # (Auto) Sodium Potassium Chloride Carbon Dioxide Anion Gap BUN Creatinine Est GFR ( Amer) Est GFR (Non-Af Amer) POC Glucose (mg/dL) 270 H 321 H 232 H Random Glucose Calcium Phosphorus Magnesium Total Bilirubin AST ALT Alkaline Phosphatase Troponin I Total Protein Albumin Globulin Albumin/Globulin Ratio 11/04/17 11/04/17 11/04/17 07:19 11:17 13:58 WBC 13.6 H RBC 2.42 L Hgb 8.2 L Hct 24.4 L MCV 100.8 H MCH 33.9 H MCHC 33.6 RDW 17.0 H Plt Count 154 MPV 8.5 Neut % (Auto) 76.3 H Lymph % (Auto) 11.7 L [place] % (Auto) 5.5 Eos % (Auto) 5.5 H Baso % (Auto) 1.0 Neut # (Auto) 10.4 H Lymph # (Auto) 1.6 [place] # (Auto) 0.7 Eos # (Auto) 0.7 Baso # (Auto) 0.1 Sodium Potassium Chloride Carbon Dioxide Anion Gap BUN Creatinine Est GFR ( Amer) Est GFR (Non-Af Amer) POC Glucose (mg/dL) 181 H 162 H Random Glucose Calcium Phosphorus Magnesium Total Bilirubin AST ALT Alkaline Phosphatase Troponin I Total Protein Albumin Globulin Albumin/Globulin Ratio 11/04/17 13:58 WBC RBC Hgb Hct MCV MCH MCHC RDW Plt Count MPV Neut % (Auto) Lymph % (Auto) [place] % (Auto) Eos % (Auto) Baso % (Auto) Neut # (Auto) Lymph # (Auto) [place] # (Auto) Eos # (Auto) Baso # (Auto) Sodium 140 Potassium 5.0 Chloride 102 Carbon Dioxide 24 Anion Gap 20 BUN 31 H Creatinine 5.5 H Est GFR ( Amer) 10 Est GFR (Non-Af Amer) 9 POC Glucose (mg/dL) Random Glucose 181 H Calcium 8.3 L Phosphorus 4.7 H Magnesium 2.1 Total Bilirubin 0.7 AST 21 ALT 36 Alkaline Phosphatase 126 Troponin I 0.1630 H* Total Protein 6.9 Albumin 3.9 Globulin 2.9 Albumin/Globulin Ratio 1.3 EKG/Cardiology Studies: Cardiology / EKG Studies 11/03/17 23:32 EKG [ELECTROCARDIOGRAM] Stat Comment: Mode Of Transportation: BED Reason For Exam: cp Fingerstick Blood Sugar Results: 161 Critical Care Progress Note - Nutrition Nutrition: Nutrition Category Date Time Status Renal Diet [DIET] Diets 11/04/17 Lunch Active Assessment/Plan (1) Pneumonia Current Visit: Yes Status: Acute Comment: PATIENT REFUSED TRIPLE LUMEN CATHETER AND PICC line Now patient agreed for PICC line continue antibiotics as per infectious disease Ultrasound of breast Continue hemodialysis Patient refused cardiac cath during last admission (2) CKD (chronic kidney disease) requiring chronic dialysis Current Visit: Yes Status: Acute (3) Pulmonary edema Current Visit: Yes Status: Acute
--- NOTE | 2017-11-04 19:41 | PN ---
DATE: 11/04/2017 SUBJECTIVE: The patient is mildly shot of breath and she is experiencing nonproductive cough. She denies retrosternal chest pain. Troponin was ordered yesterday; however, no blood sampling was obtained. PHYSICAL EXAMINATION: VITAL SIGNS: Blood pressure 148/68, heart rate 84, respirations 18, temperature 98.6. HEENT: Pale conjunctivae. CHEST: Right basal crepitations. HEART: S1 and S2, regular. ABDOMEN: Soft. EXTREMITIES: Trace left leg edema. LABORATORY DATA: Today's blood sugars are 232, 181, and 162. ASSESSMENT: 1. Congestive heart failure, status post volume overload. The patient's heart failure is related to volume overload rather than systolic dysfunction. 2. History of recent [id number] myocardial infarction. 3. End-stage renal disease, on hemodialysis. 4. Hypertension and diabetes mellitus. 5. Bilateral lower lobe pneumonia and bilateral pleural effusion. RECOMMENDATIONS: Continue hydralazine 25 mg every 8 hours, clonidine 0.2 mg every 8 hours, Coreg 12.5 mg twice a day, aspirin 81 mg once a day, heparin 5000 units subcutaneous every 8 hours, Neurontin 100 mg t.i.d., PhosLo one tablet t.i.d., Procardia XL 90 mg once a day, prednisone 5 mg once a day, IV vancomycin 1 gm Sunday, Sunday, and Sunday, IV Zosyn 2.25 gm intravenously every 8 hours. Obtain a portable chest x-ray today. I did reorder troponin for today. Olayinka Brown MD
[2017-11-05] MEDS: Albuterol-Ipratrop 3 mg / 0.5 (3 ml) UD INH SCH ×5 (02:25→20:03)
--- NOTE | 2017-11-05 03:23 | CP.PCM.PN ---
Subjective - Date & Time of Evaluation Date of Evaluation: 11/04/17 Time of Evaluation: 18:00 - Subjective Subjective: patient seen and examined Previous events noted Being treated for pneumonia Status post hemodialysis yesterday Sitting comfortably in no distress Afebrile Denies any cough, denies chest pain, denies shortness of breath Objective - Vital Signs/Intake and Output Vital Signs (last 24 hours): Temp Pulse Resp BP Pulse Ox 98.5 F 73 13 150/82 100 11/05/17 00:00 11/05/17 03:00 11/05/17 03:00 11/05/17 02:22 11/05/17 03:00 Intake and Output: 11/04/17 11/05/17 18:59 06:59 Intake Total 580 75 Output Total 0 0 Balance 580 75 - Medications Medications: Current Medications Acetaminophen (Tylenol 325mg Tab) 650 mg PO Q6 PRN PRN Reason: Pain, Mild (1-3) Albuterol/Ipratropium (Duoneb 3 Mg/0.5 Mg (3 Ml) Ud) 3 ml INH RQ4 [facility] Last Admin: 11/05/17 02:25 Dose: 3 ml Amoxicillin/Clavulanate Potassium (Augmentin 500 Mg-125 Mg Tab) 1 tab PO Q12H [facility] PRN Reason: Protocol Last Admin: 11/04/17 23:22 Dose: 1 tab Aspirin (Ecotrin) 81 mg PO DAILY [facility] Last Admin: 11/04/17 09:43 Dose: 81 mg Calcium Acetate (Phoslo) 667 mg PO TIDCC [facility] Last Admin: 11/04/17 16:19 Dose: 667 mg Carvedilol (Coreg) 12.5 mg PO BID [facility] Last Admin: 11/04/17 18:34 Dose: 12.5 mg Clonidine HCl (Catapres) 0.3 mg PO Q8 [facility] Last Admin: 11/04/17 21:40 Dose: 0.3 mg Diphenhydramine HCl (Benadryl) 25 mg PO Q8 PRN PRN Reason: Itching / Pruritus Gabapentin (Neurontin) 100 mg PO TID [facility] Last Admin: 11/04/17 18:34 Dose: 100 mg Heparin Sodium (Porcine) (Heparin) 5,000 units SC Q8 [facility] Last Admin: 11/04/17 21:40 Dose: 5,000 units Hydralazine HCl (Apresoline) 25 mg PO Q8 [facility] Last Admin: 11/04/17 21:40 Dose: 25 mg Piperacillin Sod/Tazobactam Sod (Zosyn 2.25 Gm Iv Premix) 2.25 gm in 50 mls @ 100 mls/hr IVPB Q8H [facility] PRN Reason: Protocol Last Admin: 11/04/17 23:41 Dose: Not Given Vancomycin/Sodium Chloride (Vancomycin 1 Gm/Ns 200 Ml) 1 gm in 200 mls @ 133.333 mls/hr IVPB MWF [facility] PRN Reason: Protocol Stop: 11/10/17 09:01 Insulin Human Regular (Novolin R) 0 unit SC ACHS [facility] PRN Reason: Protocol Last Admin: 11/04/17 21:41 Dose: 3 unit Metoclopramide HCl (Reglan) 5 mg PO 0600,1130,1630,2200 [facility] Last Admin: 11/04/17 21:40 Dose: 5 mg Nifedipine (Procardia Xl) 90 mg PO DAILY [facility] Last Admin: 11/04/17 09:44 Dose: 90 mg Oxycodone/Acetaminophen (Percocet 5/325 Mg Tab) 2 tab PO Q4H PRN PRN Reason: Pain, moderate (4-7) Stop: 11/06/17 05:50 Last Admin: 11/04/17 21:51 Dose: 2 tab Prednisone (Prednisone Tab) 5 mg PO DAILY [facility] Last Admin: 11/04/17 09:44 Dose: 5 mg Rosuvastatin Calcium (Crestor) 5 mg PO HS [facility] Last Admin: 11/04/17 21:40 Dose: 5 mg - Labs Labs: 11/04/17 13:58 11/04/17 13:58 - Constitutional Appears: No Acute Distress - Head Exam Head Exam: ATRAUMATIC, NORMAL INSPECTION, NORMOCEPHALIC - Eye Exam Eye Exam: EOMI, Normal appearance, PERRL Pupil Exam: NORMAL ACCOMODATION, PERRL
[2017-11-05] MEDS: Piperacill/Tazo 2.25gm in Dex 2.25 GM/50 ML BAG IVPB SCH ×2 (08:00→22:00)
[2017-11-05] MEDS: (Novolin R) Insulin Human Regular 100 units/ml vial SC SCH ×4 (08:36→22:00)
[2017-11-05] MEDS: NIFEdipine 90 mg ER Tab PO SCH (09:31)
[2017-11-05] MEDS: Oxycodone/Acetaminophen 5/325 mg Tab PO PRN (11:34)
--- NOTE | 2017-11-05 12:06 | CP.PCM.PN ---
Subjective - Date & Time of Evaluation Date of Evaluation: 11/05/17 Time of Evaluation: 12:06 - Subjective Subjective: afebrile, lethargic c/o generalized body aches. States Percocet is not helping her. C/O LESS SOB /NONPRODUCTIVE COUGH. Patient for hemodialysis today-pending. S/P [facility] TODAY11/05/17 ROS. HEENT : N. Resp : LESS COUGH, NO wheezing ,pleuritic CP ,or hemoptysis Cardio : No anginal CP, PND, orthopnea, palpitation GI : No abd.pain, n/v ,diarrhea or GI bleeding . [employer] : No headache, vertigo, focal deficit. Musculoskel : No joint swelling , Derm : No rash Psych : Normal affect. Ext : No swelling ,calf pain PE. Pt. is alert awake in no distress. V.S As noted in the chart Head ,ear nose,throat and eyes : Normal. Neck : Supple with normal carotids. Lungs: B/L RHONCHI/RALES Heart : S1 & S2 normal . No murmur. Abd : SOFT ,with normal bowel sounds. Neuro : Moves all ext. with no localized deficit. Ext : No edema with intact pulses.Non tender calves LT. AVF WORKING Derm : No rashes or decubitus ulcer. LABS/RADIOLOGY: leukocytosis improving. BLOOD CULTURES 11/03/17 2 2 SETS NEGATIVE TO DATE. MRSA SCREEN -VE ASSESSMENT PULMONARY EDEMA/CHF PNEUMONIA LEUKOCYTOSIS-IMPROVING ANEMIA. ESRD ON HD MWF. EDEMA LEFT BREAST. DM -2 /PLAN : Continue IV vancomycin 1 g post each hemodialysis mwf [id number]. DC PO Augmentin 500 twice a day for now as patient has no IV access. RESUME iv ZOSYN 2.25 iv PIGGYBACK EVERY 8 HOURLY [facility] 11/05/17 ZITHROMAX 500 MG BY MOUTH ADDED NOTED 11/05/17 f/u cbc with differential in a.m. Case discussed with the staff/RN RN SECURITY.. Objective - Vital Signs/Intake and Output Vital Signs (last 24 hours): Temp Pulse Resp BP Pulse Ox 97.5 F L 73 16 107/65 98 11/05/17 08:00 11/05/17 10:22 11/05/17 10:22 11/05/17 10:22 11/05/17 10:22 Intake and Output: 11/05/17 11/05/17 06:59 18:59 Intake Total 125 250 Output Total 0 0 Balance 125 250 - Medications Medications: Current Medications Acetaminophen (Tylenol 325mg Tab) 650 mg PO Q6 PRN PRN Reason: Pain, Mild (1-3) Albuterol/Ipratropium (Duoneb 3 Mg/0.5 Mg (3 Ml) Ud) 3 ml INH RQ4 [facility] Last Admin: 11/05/17 11:24 Dose: 3 ml Aspirin (Ecotrin) 81 mg PO DAILY [facility] Last Admin: 11/05/17 09:32 Dose: 81 mg Azithromycin (Zithromax) 500 mg PO DAILY [facility] PRN Reason: Protocol Calcium Acetate (Phoslo) 667 mg PO TIDCC [facility] Last Admin: 11/05/17 11:33 Dose: 667 mg Carvedilol (Coreg) 12.5 mg PO BID [facility] Last Admin: 11/05/17 09:31 Dose: 12.5 mg Clonidine HCl (Catapres) 0.3 mg PO Q8 [facility] Last Admin: 11/05/17 05:40 Dose: 0.3 mg Diphenhydramine HCl (Benadryl) 25 mg PO Q8 PRN PRN Reason: Itching / Pruritus Epoetin Cornelius (Procrit) 10,000 unit IV MWF [facility] Gabapentin (Neurontin) 100 mg PO TID [facility] Last Admin: 11/05/17 09:32 Dose: 100 mg Heparin Sodium (Porcine) (Heparin) 5,000 units SC Q8 [facility] Last Admin: 11/05/17 05:40 Dose: 5,000 units Hydralazine HCl (Apresoline) 25 mg PO Q8 [facility] Last Admin: 11/05/17 05:40 Dose: 25 mg Vancomycin/Sodium Chloride (Vancomycin 1 Gm/Ns 200 Ml) 1 gm in 200 mls @ 133.333 mls/hr IVPB MWF [facility] PRN Reason: Protocol Stop: 11/10/17 09:01 Insulin Human Regular (Novolin R) 0 unit SC ACHS [facility] PRN Reason: Protocol Last Admin: 11/05/17 11:33 Dose: 3 unit Metoclopramide HCl (Reglan) 5 mg PO 0600,1130,1630,2200 [facility] Last Admin: 11/05/17 11:33 Dose: 5 mg Nifedipine (Procardia Xl) 90 mg PO DAILY [facility] Last Admin: 11/05/17 09:31 Dose: 90 mg Oxycodone/Acetaminophen (Percocet 5/325 Mg Tab) 2 tab PO Q4H PRN PRN Reason: Pain, moderate (4-7) Stop: 11/06/17 05:50 Last Admin: 11/05/17 11:34 Dose: 2 tab Prednisone (Prednisone Tab) 5 mg PO DAILY [facility] Last Admin: 11/05/17 09:32 Dose: 5 mg Rosuvastatin Calcium (Crestor) 5 mg PO HS [facility] Last Admin: 11/04/17 21:40 Dose: 5 mg Vitamin B Complex/Vit C/Folic Acid (Nephro-Anjelica) 1 tab PO 0800 [facility] - Labs Labs: 11/04/17 13:58 11/04/17 13:58 Assessment and Plan (1) Pulmonary edema Status: Acute (2) Pneumonia Status: Acute (3) Anemia Status: Acute (4) ESRD (end stage renal disease) Status: Acute (5) Edema of breast Status: Acute (6) DM2 (diabetes mellitus, type 2) Status: Chronic
--- NOTE | 2017-11-05 12:29 | CP.PCM.PN ---
Subjective - Date & Time of Evaluation Date of Evaluation: 11/05/17 Time of Evaluation: 12:26 - Subjective Subjective: Nephrology Consultation Note: Assessment: Stable HTN emergency with pulmonary edema COPD Pneumonia Diabetic chronic Kidney Disease (E11.22) Hypertensive Chronic Kidney Disease (I12.0) End stage renal disease (N18.6) dependence on hemodialysis (Z99.2) (MWF) via AVF Anemia (D64.9), Hyperphosphatemia (E83.39), Secondary Hyperparathyroidism (E21.1 ), HTN (I12.0) ex smoker Plan: Will plan for HD today as ordered per MWF schedule. Continue with Nephrovite 1 tab/day. PRBC as needed for anemia. on EDMAR with dialysis as last Hb 8.2 Continue with phos binders, last phos level 4.7 BP control with meds as ordered. Patient not on RAAS shay as tendency for hyperkalemia. Glycemic control, Dialysis consistent diet Further work up/management as per primary team Dose meds/antibiotics for ESRD status. Avoid fleets enema/magnesium based laxatives. ID, Pulmonary and cardiology following Thanks for allowing me to participate in care of your patient. Will follow patient with you. Please call if any Qs. had d/w team Dr Aurelio Brar Office: [phone] ROS: doesn't feel good. c/o diffuse body aches and chest tightness. asking for more pain meds. denies chest pain. no nausea/vomiting. feels stomach is not okay either Physical Examination: General Appearance: comfortable, in no acute respiratory distress, co-operative . Vitals reviewed and noted as below Head; Atraumatic, normocephalic ENT: no ulcers no thrush. Tongue is midline. Oropharynx: no rash or ulcers. EYES: Pupils are equal, round and reactive to light accommodation. Eye muscles and extraocular movement intact. Sclera is anicteric. Neck; supple no lymphadenopathy, no thyromegaly or bruit Lungs: Normal respiratory rate/effort. Breath sounds bilateral equal and clear Heart: Normal rate. s1s2 normal. No rub or gallop. Extremities: no edema. No varicose veins Neurological: Patient is alert, awake and oriented to person, place and time. No focal deficit. Strength bilateral appropriate and equal Skin: Warm and dry. Normal turgor. No rash. Palpitation: Normal elasticity for age Abdomen: Abdomen is soft. Bowel sounds +. There is no abdominal tenderness, no guarding/rigidity or organomegaly Psych: normal insight and flat affect/mood MSK: no joint tenderness or swelling. Digits and nails normal, no deformity : kidney or bladder not palpable Access: AVF. Labs/imaging reviewed. Past medical history, past surgical history, family history, social history, allergy reviewed and noted as below Family Hx: no hx of CKD. Non contributory Objective - Vital Signs/Intake and Output Vital Signs (last 24 hours): Temp Pulse Resp BP Pulse Ox 97.5 F L 73 16 107/65 98 11/05/17 08:00 11/05/17 10:22 11/05/17 10:22 11/05/17 10:22 11/05/17 10:22 Intake and Output: 11/05/17 11/05/17 06:59 18:59 Intake Total 125 250 Output Total 0 0 Balance 125 250 - Medications Medications: Current Medications Acetaminophen (Tylenol 325mg Tab) 650 mg PO Q6 PRN PRN Reason: Pain, Mild (1-3) Albuterol/Ipratropium (Duoneb 3 Mg/0.5 Mg (3 Ml) Ud) 3 ml INH RQ4 [facility] Last Admin: 11/05/17 11:24 Dose: 3 ml Aspirin (Ecotrin) 81 mg PO DAILY [facility] Last Admin: 11/05/17 09:32 Dose: 81 mg Azithromycin (Zithromax) 500 mg PO DAILY [facility] PRN Reason: Protocol Calcium Acetate (Phoslo) 667 mg PO TIDCC [facility] Last Admin: 11/05/17 11:33 Dose: 667 mg Carvedilol (Coreg) 12.5 mg PO BID [facility] Last Admin: 11/05/17 09:31 Dose: 12.5 mg Clonidine HCl (Catapres) 0.3 mg PO Q8 [facility] Last Admin: 11/05/17 05:40 Dose: 0.3 mg Diphenhydramine HCl (Benadryl) 25 mg PO Q8 PRN PRN Reason: Itching / Pruritus Epoetin Cornelius (Procrit) 10,000 unit IV [facility] Gabapentin (Neurontin) 100 mg PO TID [facility] Last Admin: 11/05/17 09:32 Dose: 100 mg Heparin Sodium (Porcine) (Heparin) 5,000 units SC Q8 [facility] Last Admin: 11/05/17 05:40 Dose: 5,000 units Hydralazine HCl (Apresoline) 25 mg PO Q8 [facility] Last Admin: 11/05/17 05:40 Dose: 25 mg Vancomycin/Sodium Chloride (Vancomycin 1 Gm/Ns 200 Ml) 1 gm in 200 mls @ 133.333 mls/hr IVPB MWF [facility] PRN Reason: Protocol Stop: 11/10/17 09:01 Insulin Human Regular (Novolin R) 0 unit SC ACHS [facility] PRN Reason: Protocol Last Admin: 11/05/17 11:33 Dose: 3 unit Metoclopramide HCl (Reglan) 5 mg PO 0600,1130,1630,2200 [facility] Last Admin: 11/05/17 11:33 Dose: 5 mg Nifedipine (Procardia Xl) 90 mg PO DAILY [facility] Last Admin: 11/05/17 09:31 Dose: 90 mg Oxycodone/Acetaminophen (Percocet 5/325 Mg Tab) 2 tab PO Q4H PRN PRN Reason: Pain, moderate (4-7) Stop: 11/06/17 05:50 Last Admin: 11/05/17 11:34 Dose: 2 tab Prednisone (Prednisone Tab) 5 mg PO DAILY [facility] Last Admin: 11/05/17 09:32 Dose: 5 mg Rosuvastatin Calcium (Crestor) 5 mg PO HS [facility] Last Admin: 11/04/17 21:40 Dose: 5 mg Vitamin B Complex/Vit C/Folic Acid (Nephro-Anjelica) 1 tab PO 0800 [facility] - Labs Labs: 11/04/17 13:58 11/04/17 13:58
--- NOTE | 2017-11-05 12:45 | US ---
HISTORY: COMPARISON: 10/31/2016 and 10/27/2016 TECHNIQUE: Grayscale imaging was performed. FINDINGS: LEFT BREAST: There is extensive subcutaneous edema without evidence for drainable fluid collection or abscess. No solid or cystic masses identified. No axillary lymphadenopathy identified. IMPRESSION: Extensive subcutaneous edema without evidence for drainable fluid collection or abscess. Findings may represent lymphedema or cellulitis. Clinical correlation and follow-up is advised. No sonographic evidence of malignancy. BIRADS: BIRADS 2 Benign finding Recommendation: Continue annual screening mammography, as per ACR guidelines.
[2017-11-05 14:01] LABS: BASO # 0.1 K/uL (0.0-0.2); BASO % 0.8 % (0.0-2.0); EOS # 0.8 K/uL (0.0-0.7); EOS % 5.7 % (0.0-4.0); HEMOGLOBIN 7.7 g/dL (11.0-16.0); LYMPH # 1.1 K/uL (1.0-4.3); LYMPH % 7.8 % (20.0-40.0); MEAN CELL VOLUME 101.4 fL (81.0-99.0); MEAN CORPUSCULAR HGB CONC 33.6 g/dL (33.0-37.0); MEAN PLATELET VOLUME 8.7 fL (7.2-11.7); MONO # 0.5 K/uL (0.0-0.8); MONO % 3.6 % (0.0-10.0); NEUT # 12.1 K/uL (1.8-7.0); NEUT % 82.1 % (50.0-75.0); NRBC % 0.1 % (0.0-2.0); PLATELET COUNT 169 K/uL (130-400); RBC 2.27 Mil/uL (3.80-5.20); RED CELL DISTRIBUTION WIDTH 17.8 % (11.5-14.5); WHITE BLOOD COUNT 14.7 K/uL (4.8-10.8)
[2017-11-05] MEDS: Vancomycin 1 gm/NS 200 ml 1 GM/200 ML BAG IVPB SCH (14:08)
[2017-11-05 14:21] LABS: ALB/GLOB RATIO 1.2 (1.0-2.1); CALCIUM 8.4 mg/dl (8.6-10.4)
[2017-11-05 14:24] LABS: TROPONIN I 0.094 ng/mL (0.00-0.120)
--- NOTE | 2017-11-05 14:53 | CP.CCUPN ---
<Angelica José - Last Filed: 11/05/17 17:48> CCU Subjective - Physician Review Subjective (Free Text): 11/05/17 14:49 Pt seen and examined at bedside. No acute events overnight. Pt is sitting comfortably in a chair. When asked, complaining of diffuse body aches. C/o of SOB and nonproductive coughing. Denies having any CP, abd pain, N/v/D/C, F/C. tolerating diet and having regular bowel movements. Critical Care Time Spent (in minutes): 45 CCU Objective - Vital Signs / Intake & Output Vital Signs (Last 4 hours): Vital Signs Temp Pulse Resp BP Pulse Ox 11/05/17 13:00 80 15 93 L 11/05/17 12:00 97.6 F 75 15 11/05/17 11:23 70 16 102/47 L 92 L 11/05/17 11:00 69 12 97 Intake and Output (Last 8hrs): Intake & Output 11/04/17 11/05/17 11/05/17 22:59 06:59 14:59 Intake Total 285 50 400 Output Total 0 0 0 Balance 285 50 400 Intake: Oral 285 50 400 Output: Urine 0 0 0 Urine, Voided 0 0 0 Other: # Bowel Movements 0 - Physical Exam Head: Positive for: Atraumatic, Normocephalic Mouth: Positive for: Moist Mucous Membranes Neck: Positive for: Normal Range of Motion Respiratory/Chest: Positive for: Clear to Auscultation. Negative for: Accessory Muscle Use, Wheezes, Rales, Rhonchi Cardiovascular: Positive for: Regular Rate and Rhythm, Normal S1, S2. Negative for: Murmurs, Rub Abdomen: Positive for: Normal Bowel Sounds. Negative for: Tenderness, Distention, Peritoneal Signs Upper Extremity: Positive for: Normal Inspection, NORMAL PULSES. Negative for: Edema Lower Extremity: Positive for: Normal Inspection. Negative for: Edema, CALF TENDERNESS Neurological: Positive for: GCS=15, CN II-XII Intact, Speech Normal Skin: Positive for: Warm, Dry, Normal Color. Negative for: Rashes Psychiatric: Positive for: Alert, Oriented x 3, Normal Insight, Normal Concentration - Medications Active Medications: Active Medications Generic Name Dose Route Start Last Admin Trade Name Freq PRN Reason Stop Dose Admin Acetaminophen 650 mg 11/03/17 05:49 Tylenol 325mg Tab PO Q6 PRN Pain, Mild (1-3) Albuterol/Ipratropium 3 ml 11/03/17 08:00 11/05/17 11:24 Duoneb 3 Mg/0.5 Mg (3 Ml) Ud INH 3 ml RQ4 DUC Administration Aspirin 81 mg 11/03/17 10:00 11/05/17 09:32 Ecotrin PO 81 mg DAILY DUC Administration Azithromycin 500 mg 11/06/17 10:00 Zithromax PO DAILY DUC Protocol Calcium Acetate 667 mg 11/03/17 08:00 11/05/17 11:33 Phoslo PO 667 mg TIDCC DUC Administration Carvedilol 12.5 mg 11/03/17 10:00 11/05/17 09:31 Coreg PO 12.5 mg BID DUC Administration Clonidine HCl 0.3 mg 11/03/17 06:00 11/05/17 14:07 Catapres PO 0.3 mg Q8 DUC Administration Diphenhydramine HCl 25 mg 11/03/17 06:12 Benadryl PO Q8 PRN Itching / Pruritus Epoetin Cornelius 10,000 unit 11/05/17 11:00 Procrit IV MWF DUC Gabapentin 100 mg 11/03/17 10:00 11/05/17 14:07 Neurontin PO 100 mg TID DUC Administration Heparin Sodium (Porcine) 5,000 units 11/03/17 06:00 11/05/17 14:07 Heparin SC 5,000 units Q8 DUC Administration Hydralazine HCl 25 mg 11/03/17 06:00 11/05/17 14:07 Apresoline PO 25 mg Q8 DUC Administration Vancomycin/Sodium Chloride 1 gm in 200 mls @ 133.333 mls/hr 11/05/17 09:00 14:08 Vancomycin 1 Gm/Ns 200 Ml IVPB 11/10/17 09:01 133.333 mls/hr MWF DUC Administration Protocol Insulin Human Regular 0 unit 11/03/17 11:30 11/05/17 11:33 Novolin R SC 3 unit ACHS DUC Administration Protocol Metoclopramide HCl 5 mg 11/03/17 11:30 11/05/17 11:33 Reglan PO 5 mg 0600,1130,1630,2200 DUC Administration Nifedipine 90 mg 11/03/17 10:00 11/05/17 09:31 Procardia Xl PO 90 mg DAILY [facility] Administration Oxycodone/Acetaminophen 2 tab 11/03/17 05:49 11/05/17 11:34 Percocet 5/325 Mg Tab PO 11/06/17 05:50 2 tab Q4H PRN Administration Pain, moderate (4-7) Prednisone 5 mg 11/03/17 10:00 11/05/17 09:32 Prednisone Tab PO 5 mg DAILY DUC Administration Rosuvastatin Calcium 5 mg 11/03/17 22:00 11/04/17 21:40 Crestor PO 5 mg HS DUC Administration Vitamin B Complex/Vit C/Folic Acid 1 tab 11/06/17 08:00 Nephro-Sabas PO 0800 [facility] - Patient Studies Lab Studies: Microbiology Studies 11/03/17 08:03 Blood Culture - Preliminary Blood NO GROWTH AFTER 48 HOURS 11/03/17 08:03 Blood Culture - Preliminary Blood NO GROWTH AFTER 48 HOURS 11/03/17 06:36 MRSA Culture (Admit) - Final Naris MRSA NOT DETECTED Lab Studies 11/05/17 11/05/17 11/05/17 Range/Units 13:56 13:56 11:10 WBC 14.7 H (4.8-10.8) K/uL RBC 2.27 L (3.80-5.20) Mil/uL Hgb 7.7 L (11.0-16.0) g/dL Hct 23.0 L (34.0-47.0) % MCV 101.4 H (81.0-99.0) fL MCH 34.0 H (27.0-31.0) pg MCHC 33.6 (33.0-37.0) g/dL RDW 17.8 H (11.5-14.5) % Plt Count 169 (130-400) K/uL MPV 8.7 (7.2-11.7) fL Neut % (Auto) 82.1 H (50.0-75.0) % Lymph % (Auto) 7.8 L (20.0-40.0) % [place] % (Auto) 3.6 (0.0-10.0) % Eos % (Auto) 5.7 H (0.0-4.0) % Baso % (Auto) 0.8 (0.0-2.0) % Neut # (Auto) 12.1 H (1.8-7.0) K/uL Lymph # (Auto) 1.1 (1.0-4.3) K/uL [place] # (Auto) 0.5 (0.0-0.8) K/uL Eos # (Auto) 0.8 H (0.0-0.7) K/uL Baso # (Auto) 0.1 (0.0-0.2) K/uL Sodium 137 (132-148) mmol/L Potassium 5.4 H (3.6-5.2) mmol/L Chloride 99 (98-107) mmol/L Carbon Dioxide 24 (22-30) mmol/L Anion Gap 21 H (10-20) BUN 47 H (7-17) mg/dL Creatinine 7.4 H* D (0.7-1.2) mg/dL Est GFR ( Amer) 7 Est GFR (Non-Af Amer) 6 POC Glucose (mg/dL) 218 H (65-110) mg/dL Random Glucose 206 H (65-105) mg/dL Calcium 8.4 L (8.6-10.4) mg/dl Phosphorus 5.7 H (2.5-4.5) mg/dL Magnesium 2.1 (1.6-2.3) mg/dL Total Bilirubin 1.0 (0.2-1.3) mg/dL AST 21 (14-36) U/L ALT 29 (9-52) U/L Alkaline Phosphatase 117 (38-126) U/L Troponin I 0.0940 (0.00-0.120) ng/mL Total Protein 7.3 (6.3-8.3) g/dL Albumin 4.0 (3.5-5.0) g/dL Globulin 3.3 (2.2-3.9) gm/dL Albumin/Globulin Ratio 1.2 (1.0-2.1) 11/05/17 11/04/17 11/04/17 Range/Units 07:27 21:16 16:15 WBC (4.8-10.8) K/uL RBC (3.80-5.20) Mil/uL Hgb (11.0-16.0) g/dL Hct (34.0-47.0) % MCV (81.0-99.0) fL MCH (27.0-31.0) pg MCHC (33.0-37.0) g/dL RDW (11.5-14.5) % Plt Count (130-400) K/uL MPV (7.2-11.7) fL Neut % (Auto) (50.0-75.0) % Lymph % (Auto) (20.0-40.0) % [place] % (Auto) (0.0-10.0) % Eos % (Auto) (0.0-4.0) % Baso % (Auto) (0.0-2.0) % Neut # (Auto) (1.8-7.0) K/uL Lymph # (Auto) (1.0-4.3) K/uL [place] # (Auto) (0.0-0.8) K/uL Eos # (Auto) (0.0-0.7) K/uL Baso # (Auto) (0.0-0.2) K/uL Sodium (132-148) mmol/L Potassium (3.6-5.2) mmol/L Chloride (98-107) mmol/L Carbon Dioxide (22-30) mmol/L Anion Gap (10-20) BUN (7-17) mg/dL Creatinine (0.7-1.2) mg/dL Est GFR ( Amer) Est GFR (Non-Af Amer) POC Glucose (mg/dL) 156 H 216 H 199 H (65-110) mg/dL Random Glucose (65-105) mg/dL Calcium (8.6-10.4) mg/dl Phosphorus (2.5-4.5) mg/dL Magnesium (1.6-2.3) mg/dL Total Bilirubin (0.2-1.3) mg/dL AST (14-36) U/L ALT (9-52) U/L Alkaline Phosphatase (38-126) U/L Troponin I (0.00-0.120) ng/mL Total Protein (6.3-8.3) g/dL Albumin (3.5-5.0) g/dL Globulin (2.2-3.9) gm/dL Albumin/Globulin Ratio (1.0-2.1) 11/04/17 Range/Units 13:58 WBC (4.8-10.8) K/uL RBC (3.80-5.20) Mil/uL Hgb (11.0-16.0) g/dL Hct (34.0-47.0) % MCV (81.0-99.0) fL MCH (27.0-31.0) pg MCHC (33.0-37.0) g/dL RDW (11.5-14.5) % Plt Count (130-400) K/uL MPV (7.2-11.7) fL Neut % (Auto) (50.0-75.0) % Lymph % (Auto) (20.0-40.0) % [place] % (Auto) (0.0-10.0) % Eos % (Auto) (0.0-4.0) % Baso % (Auto) (0.0-2.0) % Neut # (Auto) (1.8-7.0) K/uL Lymph # (Auto) (1.0-4.3) K/uL [place] # (Auto) (0.0-0.8) K/uL Eos # (Auto) (0.0-0.7) K/uL Baso # (Auto) (0.0-0.2) K/uL Sodium (132-148) mmol/L Potassium (3.6-5.2) mmol/L Chloride (98-107) mmol/L Carbon Dioxide (22-30) mmol/L Anion Gap (10-20) BUN (7-17) mg/dL Creatinine (0.7-1.2) mg/dL Est GFR ( Amer) Est GFR (Non-Af Amer) POC Glucose (mg/dL) (65-110) mg/dL Random Glucose (65-105) mg/dL Calcium (8.6-10.4) mg/dl Phosphorus (2.5-4.5) mg/dL Magnesium (1.6-2.3) mg/dL Total Bilirubin (0.2-1.3) mg/dL AST (14-36) U/L ALT (9-52) U/L Alkaline Phosphatase (38-126) U/L Troponin I 0.1630 H* (0.00-0.120) ng/mL Total Protein (6.3-8.3) g/dL Albumin (3.5-5.0) g/dL Globulin (2.2-3.9) gm/dL Albumin/Globulin Ratio (1.0-2.1) Laboratory Results - last 24 hr 11/04/17 11/04/17 11/04/17 13:58 16:15 21:16 WBC RBC Hgb Hct MCV MCH MCHC RDW Plt Count MPV Neut % (Auto) Lymph % (Auto) [place] % (Auto) Eos % (Auto) Baso % (Auto) Neut # (Auto) Lymph # (Auto) [place] # (Auto) Eos # (Auto) Baso # (Auto) Sodium Potassium Chloride Carbon Dioxide Anion Gap BUN Creatinine Est GFR ( Amer) Est GFR (Non-Af Amer) POC Glucose (mg/dL) 199 H 216 H Random Glucose Calcium Phosphorus Magnesium Total Bilirubin AST ALT Alkaline Phosphatase Troponin I 0.1630 H* Total Protein Albumin Globulin Albumin/Globulin Ratio 11/05/17 11/05/17 11/05/17 07:27 11:10 13:56 WBC 14.7 H RBC 2.27 L Hgb 7.7 L Hct 23.0 L MCV 101.4 H MCH 34.0 H MCHC 33.6 RDW 17.8 H Plt Count 169 MPV 8.7 Neut % (Auto) 82.1 H Lymph % (Auto) 7.8 L [place] % (Auto) 3.6 Eos % (Auto) 5.7 H Baso % (Auto) 0.8 Neut # (Auto) 12.1 H Lymph # (Auto) 1.1 [place] # (Auto) 0.5 Eos # (Auto) 0.8 H Baso # (Auto) 0.1 Sodium Potassium Chloride Carbon Dioxide Anion Gap BUN Creatinine Est GFR ( Amer) Est GFR (Non-Af Amer) POC Glucose (mg/dL) 156 H 218 H Random Glucose Calcium Phosphorus Magnesium Total Bilirubin AST ALT Alkaline Phosphatase Troponin I Total Protein Albumin Globulin Albumin/Globulin Ratio 11/05/17 13:56 WBC RBC Hgb Hct MCV MCH MCHC RDW Plt Count MPV Neut % (Auto) Lymph % (Auto) [place] % (Auto) Eos % (Auto) Baso % (Auto) Neut # (Auto) Lymph # (Auto) [place] # (Auto) Eos # (Auto) Baso # (Auto) Sodium 137 Potassium 5.4 H Chloride 99 Carbon Dioxide 24 Anion Gap 21 H BUN 47 H Creatinine 7.4 H* D Est GFR ( Amer) 7 Est GFR (Non-Af Amer) 6 POC Glucose (mg/dL) Random Glucose 206 H Calcium 8.4 L Phosphorus 5.7 H Magnesium 2.1 Total Bilirubin 1.0 AST 21 ALT 29 Alkaline Phosphatase 117 Troponin I 0.0940 Total Protein 7.3 Albumin 4.0 Globulin 3.3 Albumin/Globulin Ratio 1.2 Fingerstick Blood Sugar Results: 218 Review of Systems - Constitutional Constitutional: absent: Fever, Chills - EENT Eyes: absent: Blurred Vision, Change in Vision Nose/Mouth/Throat: absent: Nasal Congestion, Nasal Discharge, Sore Throat - Cardiovascular Cardiovascular: Dyspnea. absent: Chest Pain, Dyspnea on Exertion, Edema, Leg Edema - Respiratory Respiratory: Cough, Dyspnea. absent: Dyspnea on Exertion, Wheezing, Chest Congestion - Gastrointestinal Gastrointestinal: absent: Abdominal Pain, Bloating, Constipation, Diarrhea, Nausea, Vomiting - Musculoskeletal Musculoskeletal: absent: Back Pain, Neck Pain - Integumentary Integumentary: absent: Acne, Lesions, Rash, Sores - Neurological Neurological: absent: Headaches, Syncope, Tingling - Psychiatric Psychiatric: absent: Anxiety, Depression Critical Care Progress Note - Extremities/Vascular Does the Patient have a Central Venous Catheter?: No Does the Patient have a Hernandez Catheter?: No Does the Patient need a Hernandez Catheter?: No - Prophylaxis GI Prophylaxis GI: Pepsid - Prophylaxis DVT Prophylaxis DVT: Heparin SQ - Nutrition Nutrition: Nutrition Category Date Time Status Renal Diet [DIET] Diets 11/04/17 Lunch Active Assessment/Plan - Assessment and Plan (Free Text) Assessment: 42 year old female with past medical history of ESRD on HD MWF, pulmonary HTN, DM, depresison and CHF was admitted for hypertensive emergency requiring emergent dialysis. Neuro: - A&ox 3. Stable Cardio: A. hx of HTN - Currently on Hydralazine 25 mg po q8, Coreg 12.5 mg po BID, Clonidine 0.3 mg po q8 and Procardia 90 mg po qd - Pt received emergent dialysis on presentation and is continuing scheduled dialysis A. CHF - Echo from 10/29/17 showed LV Ef of 60% with mod-severe LVH. Grade II diastolic dysfunction. Mild pulmn HTN. No pericardial fluid - Continue Coreg, Aspirin - Continue crestor A. elevated troponins - Noted to have elevated troponins at 0.1730. May be 2/2 renal dysfunction - Pt was refusing cardiac cath Pulm: A. Dyspnea - Likely 2/2 fluid pulmonary edema - CT of chest on admission showed pulm edema with B/L LL alveolar type infiltrate and B/L effusions. - Continue scheduled dialysis A. PNA - Continue Abx Vanco and Zithromax - Duonebs 3 Ml q4 duc, - Prednione 5 mg po qd Renal: A. ESRD on HD MWF - Nephro, Dr. Brar is consulted - Continue phoslo, nephro-sabas GI: - Renal diet - Reglan 5 mg duc : - Stable Endo: A. DM - Continue ISS - Accuchecks ACHS - Hypoglycemic protocol Prophylaxis - Pepcid - Heparin sc - [facility] Date & Time Date: 11/05/17 Time: 14:59 <Annamarie Mcgrath - Last Filed: 11/12/17 09:09> Critical Care Progress Note - Nutrition Nutrition: Nutrition Category Date Time Status Renal Diet [DIET] Diets 11/04/17 Lunch Active Attending/Attestation - Attestation I have personally seen and examined this patient.: Yes I have fully participated in the care of the patient.: Yes I have reviewed all pertinent clinical information: Yes Notes (Text): pt is seen examined and reviewed with resident and agree with note
[2017-11-05 15:14] LABS: BANDS 1 % (0-2); EOSINOPHIL 2 % (0-4); LYMPHOCYTE 2 % (20-40); MONOCYTE 2 % (0-10); NEUTROPHIL 93 % (50-75); TOTAL CELLS COUNTED 100
[2017-11-05 15:15] LABS: PLATELET ESTIMATE NORMAL (NORMAL)
[2017-11-05 15:16] LABS: ANISOCYTOSIS SLIGHT; HYPOCHROMIC SLIGHT; POLYCHROMIC SLIGHT
[2017-11-05] MEDS ORDERED: Dextrose 50% SYRINGE Inj (50 ml) IV PRN (15:26)
[2017-11-05] MEDS ORDERED: Glucagon Recombinant 1 mg Inj IM PRN (15:26)
[2017-11-05] MEDS ORDERED: HYDROmorphone 0.5 mg/0.5 ml ISec IVP STA (16:27)
--- NOTE | 2017-11-05 18:01 | CARD ---
APPROVED REPORT EKG Measurement Heart [id number] [id number] [id number] <Conclusion> Normal sinus rhythm Possible Left atrial enlargement Left axis deviation Nonspecific ST/T changes Abnormal ECG
--- NOTE | 2017-11-05 22:41 | PN ---
DATE: 11/05/2017 SUBJECTIVE: The patient is experiencing shortness of breath and generalized body aches. PHYSICAL EXAMINATION: VITAL SIGNS: Blood pressure 160/52, heart rate 88, respirations 16, and temperature 97.6. HEENT: Pale conjunctivae. CHEST: Right basal coarse crepitations. HEART: S1 and S2 are regular. EXTREMITIES: 1+ pitting edema. LABORATORY DATA: Today's hemoglobin and hematocrit 7.7 and 23, white count 14.7, platelet count 169,000. Today's SMA-7: Sodium 137, potassium 5.4, chloride 99, CO2 of 24, glucose 106, BUN 47, creatinine 7.4. Breast ultrasound, impression, extensive subcutaneous emphysema without evidence of drain of fluid collection or abscess. Findings may represent lymphedema or cellulitis. ASSESSMENT: 1. Volume overload. 2. Diastolic heart failure. 3. Hypertension. 4. Borderline troponin elevation. Yesterday's troponin was 0.163, and troponin level today is within normal limits. 5. End-stage renal disease, on hemodialysis. 6. Mild hyperkalemia. 7. Chronic obstructive lung disease. 8. Bilateral lower lobe pneumonia and pleural effusion. 9. Anemia. 10. Uncontrolled diabetes mellitus. RECOMMENDATIONS: Continue hydralazine 25 mg every 8 hours, clonidine 0.2 mg every 8 hours, Coreg 12.5 mg twice a day, Crestor 5 mg once a day, aspirin 81 mg once a day, subcutaneous heparin 5000 units every 8 hours, Neurontin 100 mg t.i.d., prednisone 5 mg once a day, Procardia XL 90 mg once a day, Procrit 10,000 units intravenously Sunday, Sunday and Sunday, Reglan 5 mg p.o. four times a day, vancomycin 1 gm on Sunday, Sunday and Sunday, Zithromax 500 mg orally daily. The patient will undergo hemodialysis this afternoon. Olayinka Brown MD
--- NOTE | 2017-11-05 23:18 | CARD ---
APPROVED REPORT EKG Measurement Heart [id number] [place] 150P48 [id number] <Conclusion> Normal sinus rhythm Left axis deviation Abnormal ECG
--- NOTE | 2017-11-05 23:55 | CP.PCM.PN ---
Subjective - Date & Time of Evaluation Date of Evaluation: 11/05/17 Time of Evaluation: 18:00 - Subjective Subjective: Pt seen and examined at bedside. No acute events overnight. Pt is sitting comfortably in a chair. When asked, complaining of diffuse body aches. C/o of SOB and nonproductive coughing. Denies having any CP, abd pain, N/v/D/C, F/C. tolerating diet and having regular bowel movements. Objective - Vital Signs/Intake and Output Vital Signs (last 24 hours): Temp Pulse Resp BP Pulse Ox 97.8 F 75 16 136/50 L 100 11/05/17 23:15 11/05/17 23:23 11/05/17 23:23 11/05/17 23:23 11/05/17 23:15 Intake and Output: 11/05/17 11/06/17 18:59 06:59 Intake Total 620 360 Output Total 1 Balance 619 360 - Medications Medications: Current Medications Acetaminophen (Tylenol 325mg Tab) 650 mg PO Q6 PRN PRN Reason: Pain, Mild (1-3) Albuterol/Ipratropium (Duoneb 3 Mg/0.5 Mg (3 Ml) Ud) 3 ml INH RQ4 [facility] Last Admin: 11/05/17 20:03 Dose: 3 ml Aspirin (Ecotrin) 81 mg PO DAILY [facility] Last Admin: 11/05/17 09:32 Dose: 81 mg Azithromycin (Zithromax) 500 mg PO DAILY [facility] PRN Reason: Protocol Calcium Acetate (Phoslo) 667 mg PO TIDCC [facility] Last Admin: 11/05/17 16:27 Dose: 667 mg Carvedilol (Coreg) 12.5 mg PO BID [facility] Last Admin: 11/05/17 17:48 Dose: 12.5 mg Clonidine HCl (Catapres) 0.3 mg PO Q8 [facility] Last Admin: 11/05/17 14:07 Dose: 0.3 mg Dextrose (Dextrose 50% Inj) 0 ml IV STAT PRN; Protocol PRN Reason: Hypoglycemia Protocol Dextrose (Glutose 15) 0 gm PO ONCE PRN; Protocol PRN Reason: Hypoglycemia Protocol Diphenhydramine HCl (Benadryl) 25 mg PO Q8 PRN PRN Reason: Itching / Pruritus Epoetin Cornelius (Procrit) 10,000 unit IV MWF [facility] Famotidine (Pepcid) 20 mg PO DAILY [facility] Last Admin: 11/05/17 15:54 Dose: 20 mg Gabapentin (Neurontin) 100 mg PO TID [facility] Last Admin: 11/05/17 17:34 Dose: 100 mg Glucagon (Glucagen Diagnostic Kit) 0 mg IM STAT PRN; Protocol PRN Reason: Hypoglycemia Protocol Heparin Sodium (Porcine) (Heparin) 5,000 units SC Q8 [facility] Last Admin: 11/05/17 22:00 Dose: 5,000 units Hydralazine HCl (Apresoline) 25 mg PO Q8 [facility] Last Admin: 11/05/17 14:07 Dose: 25 mg Vancomycin/Sodium Chloride (Vancomycin 1 Gm/Ns 200 Ml) 1 gm in 200 mls @ 133.333 mls/hr [place] [facility] [place] Reason: Protocol Stop: 11/10/17 09:01 Last Admin: 11/05/17 14:08 Dose: 133.333 mls/hr Dextrose (Dextrose 5% In Water 1000 Ml) 1,000 mls @ 0 mls/hr IV .Q0M PRN; Protocol; Per Protocol PRN Reason: Hypoglycemia Protocol Piperacillin Sod/Tazobactam Sod (Zosyn 2.25 Gm Iv Premix) 2.25 gm in 50 mls @ 100 mls/hr IVPB Q8 [facility] PRN Reason: Protocol Insulin Human Regular (Novolin R) 0 unit SC ACHS [facility] PRN Reason: Protocol Last Admin: 11/05/17 22:00 Dose: Not Given Metoclopramide HCl (Reglan) 5 mg PO 0600,1130,1630,2200 [facility] Last Admin: 11/05/17 23:13 Dose: 5 mg Nifedipine (Procardia Xl) 90 mg PO DAILY [facility] Last Admin: 11/05/17 09:31 Dose: 90 mg Oxycodone/Acetaminophen (Percocet 5/325 Mg Tab) 2 tab PO Q4H PRN PRN Reason: Pain, moderate (4-7) Stop: 11/06/17 05:50 Last Admin: 11/05/17 11:34 Dose: 2 tab Prednisone (Prednisone Tab) 5 mg PO DAILY [facility] Last Admin: 11/05/17 09:32 Dose: 5 mg Rosuvastatin Calcium (Crestor) 5 mg PO [facility] Last Admin: 11/05/17 23:13 Dose: 5 mg Vitamin B Complex/Vit C/Folic Acid (Nephro-Anjelica) 1 tab PO 0800 [facility] - Labs Labs: 11/05/17 13:56 11/05/17 13:56 Assessment and Plan (1) CHF (congestive heart failure) Status: Acute (2) Fluid overload Status: Acute (3) ESRD needing dialysis Status: Acute (4) DM2 (diabetes mellitus, type 2) Status: Chronic (5) Hypertension Status: Chronic
[2017-11-06] MEDS: Epoetin Alfa 10,000 unit/ml Dialysis IV SCH (00:06)
[2017-11-06] MEDS: Albuterol-Ipratrop 3 mg / 0.5 (3 ml) UD INH SCH ×7 (00:24→23:41)
[2017-11-06] MEDS ORDERED: Benzocaine/Menthol (Cepacol) Lozenge MT ONE (03:14)
[2017-11-06] MEDS: Piperacill/Tazo 2.25gm in Dex 2.25 GM/50 ML BAG IVPB SCH ×3 (05:15→21:24)
[2017-11-06 06:32] LABS: BASO # 0.1 K/uL (0.0-0.2); BASO % 0.5 % (0.0-2.0); EOS # 0.7 K/uL (0.0-0.7); EOS % 6.6 % (0.0-4.0); HEMOGLOBIN 7.6 g/dL (11.0-16.0); LYMPH # 0.8 K/uL (1.0-4.3); LYMPH % 7.7 % (20.0-40.0); MEAN CELL VOLUME 100.3 fL (81.0-99.0); MEAN CORPUSCULAR HEMOGLOBIN 34.3 pg (27.0-31.0); MEAN CORPUSCULAR HGB CONC 34.2 g/dL (33.0-37.0); MEAN PLATELET VOLUME 8.8 fL (7.2-11.7); MONO # 0.3 K/uL (0.0-0.8); MONO % 3.3 % (0.0-10.0); NEUT # 8.6 K/uL (1.8-7.0); NEUT % 81.9 % (50.0-75.0); PLATELET COUNT 129 K/uL (130-400); RBC 2.21 Mil/uL (3.80-5.20); RED CELL DISTRIBUTION WIDTH 17.9 % (11.5-14.5); WHITE BLOOD COUNT 10.5 K/uL (4.8-10.8)
[2017-11-06 06:52] LABS: ALB/GLOB RATIO 1.2 (1.0-2.1); CALCIUM 8.5 mg/dl (8.6-10.4)
[2017-11-06] MEDS: Multivitamin Vitamin B Complex (Nephro-Vite) Tab PO SCH (08:13)
[2017-11-06] MEDS: (Novolin R) Insulin Human Regular 100 units/ml vial SC SCH ×4 (08:25→21:23)
[2017-11-06 08:26] LABS: EOSINOPHIL 6 % (0-4); LYMPHOCYTE 5 % (20-40); MONOCYTE 4 % (0-10); NEUTROPHIL 85 % (50-75); TOTAL CELLS COUNTED 100
[2017-11-06 08:27] LABS: ANISOCYTOSIS SLIGHT; HYPOCHROMIC SLIGHT; PLATELET ESTIMATE SLIGHTLY DECREASED (NORMAL); POLYCHROMIC SLIGHT
[2017-11-06] MEDS: NIFEdipine 90 mg ER Tab PO SCH (10:29)
--- NOTE | 2017-11-06 11:04 | RAD ---
HISTORY: pulm edema COMPARISON: Chest radiograph dated 11/04/2017. FINDINGS: LUNGS: Prominence of the pulmonary vasculature may be secondary to AP technique and/or pulmonary vascular congestion. Bibasilar patchy infiltrates mildly improved in the interim. PLEURA: No significant pleural effusion identified, no pneumothorax apparent. CARDIOVASCULAR: Cardiomediastinal silhouette unchanged. OSSEOUS STRUCTURES: Unchanged. VISUALIZED UPPER ABDOMEN: Normal. OTHER FINDINGS: None. IMPRESSION: Mild improvement of bibasilar patchy infiltrates.
--- NOTE | 2017-11-06 14:33 | CP.PCM.PN ---
Subjective - Date & Time of Evaluation Date of Evaluation: 11/06/17 Time of Evaluation: 14:33 - Subjective Subjective: afebrile, MORE RESPONSIVE C/O LESS SOB /NONPRODUCTIVE COUGH. Patient for hemodialysis IN A.M. PER RENAL NO NEW ISSUES NOTED Objective - Vital Signs/Intake and Output Vital Signs (last 24 hours): Temp Pulse Resp BP Pulse Ox 98.7 F 84 17 163/57 H 80 L 11/06/17 12:00 11/06/17 13:28 11/06/17 13:28 11/06/17 13:28 11/06/17 12:28 Intake and Output: 11/06/17 11/06/17 06:59 18:59 Intake Total 760 610 Balance 760 610 - Medications Medications: Current Medications Acetaminophen (Tylenol 325mg Tab) 650 mg PO Q6 PRN PRN Reason: Pain, Mild (1-3) Albuterol/Ipratropium (Duoneb 3 Mg/0.5 Mg (3 Ml) Ud) 3 ml INH RQ4 [facility] Last Admin: 11/06/17 11:20 Dose: 3 ml Aspirin (Ecotrin) 81 mg PO DAILY [facility] Last Admin: 11/06/17 10:28 Dose: 81 mg Azithromycin (Zithromax) 500 mg PO DAILY [facility] PRN Reason: Protocol Last Admin: 11/06/17 10:28 Dose: 500 mg Calcium Acetate (Phoslo) 667 mg PO TIDCC [facility] Last Admin: 11/06/17 12:28 Dose: 667 mg Carvedilol (Coreg) 12.5 mg PO BID [facility] Last Admin: 11/06/17 10:29 Dose: 12.5 mg Clonidine HCl (Catapres) 0.3 mg PO Q8 [facility] Last Admin: 11/06/17 05:12 Dose: 0.3 mg Dextrose (Dextrose 50% Inj) 0 ml IV STAT PRN; Protocol PRN Reason: Hypoglycemia Protocol Dextrose (Glutose 15) 0 gm PO ONCE PRN; Protocol PRN Reason: Hypoglycemia Protocol Diphenhydramine HCl (Benadryl) 25 mg PO Q8 PRN PRN Reason: Itching / Pruritus Epoetin Cornelius (Procrit) 10,000 unit IV MWF [facility] Last Admin: 11/06/17 00:06 Dose: 10,000 unit Famotidine (Pepcid) 20 mg PO DAILY [facility] Last Admin: 11/06/17 10:28 Dose: 20 mg Gabapentin (Neurontin) 100 mg PO TID [facility] Last Admin: 11/06/17 14:23 Dose: 100 mg Glucagon (Glucagen Diagnostic Kit) 0 mg IM STAT PRN; Protocol PRN Reason: Hypoglycemia Protocol Heparin Sodium (Porcine) (Heparin) 5,000 units SC Q8 [facility] Last Admin: 11/06/17 14:23 Dose: 5,000 units Hydralazine HCl (Apresoline) 25 mg PO Q8 [facility] Last Admin: 11/06/17 14:26 Dose: 25 mg Vancomycin/Sodium Chloride (Vancomycin 1 Gm/Ns 200 Ml) 1 gm in 200 mls @ 133.333 mls/hr IVPB MWF [facility] PRN Reason: Protocol Stop: 11/10/17 09:01 Last Admin: 11/05/17 14:08 Dose: 133.333 mls/hr Dextrose (Dextrose 5% In Water 1000 Ml) 1,000 mls @ 0 mls/hr IV .Q0M PRN; Protocol; Per Protocol PRN Reason: Hypoglycemia Protocol Piperacillin Sod/Tazobactam Sod (Zosyn 2.25 Gm Iv Premix) 2.25 gm in 50 mls @ 100 mls/hr IVPB Q8 [facility] PRN Reason: Protocol Last Admin: 11/06/17 14:23 Dose: 100 mls/hr Insulin Human Regular (Novolin R) 0 unit SC ACHS [facility] PRN Reason: Protocol Last Admin: 11/06/17 12:28 Dose: 2 unit Metoclopramide HCl (Reglan) 5 mg PO 0600,1130,1630,2200 [facility] Last Admin: 11/06/17 12:28 Dose: 5 mg Nifedipine (Procardia Xl) 90 mg PO DAILY [facility] Last Admin: 11/06/17 10:29 Dose: 90 mg Prednisone (Prednisone Tab) 5 mg PO DAILY [facility] Last Admin: 11/06/17 10:29 Dose: 5 mg Rosuvastatin Calcium (Crestor) 5 mg PO HS [facility] Last Admin: 11/05/17 23:13 Dose: 5 mg Vitamin B Complex/Vit C/Folic Acid (Nephro-Anjelica) 1 tab PO 0800 [facility] Last Admin: 11/06/17 08:13 Dose: 1 tab - Labs Labs: 11/06/17 06:19 11/06/17 06:19 - Constitutional Appears: No Acute Distress - Eye Exam Eye Exam: EOMI, PERRL - ENT Exam ENT Exam: Normal Exam - Neck Exam Neck Exam: Normal Inspection - Cardiovascular Exam Cardiovascular Exam: Tachycardia, Irregular Rhythm, +S1, +S2 - GI/Abdominal Exam GI & Abdominal Exam: Soft, Normal Bowel Sounds - Extremities Exam Extremities Exam: absent: Calf Tenderness, Pedal Edema - Neurological Exam Neurological Exam: Awake, CN II-XII Intact, Oriented x3, Reflexes Normal - Psychiatric Exam Psychiatric exam: Normal Mood - Skin Skin Exam: Pallor, Warm Assessment and Plan (1) Pulmonary edema Assessment & Plan: PATIENT FOR HEMODIALYSIS IN A.M. PATIENT SITTING UP. Status: Acute (2) Pneumonia Status: Acute (3) Anemia Status: Acute (4) ESRD (end stage renal disease) Status: Acute (5) Edema of breast Status: Acute (6) DM2 (diabetes mellitus, type 2) Status: Chronic - Assessment and Plan (Free Text) Assessment: Assessment & Plan: ASSESSMENT PULMONARY EDEMA/CHF PNEUMONIA LEUKOCYTOSIS-IMPROVING ANEMIA. ESRD ON HD MWF. EDEMA LEFT BREAST. DM -2 /PLAN : Continue IV vancomycin 1 g post each hemodialysis mwf [id number]. CONTINUE iv ZOSYN 2.25 iv PIGGYBACK EVERY 8 HOURLY DE MIDLINE PLACED 11/05/17 ZITHROMAX 500 MG BY MOUTH ADDED NOTED 11/05/17. PULM. TOILET.
[2017-11-06] MEDS ORDERED: HYDROmorphone 0.5 mg/0.5 ml ISec IVP ONE (15:15)
--- NOTE | 2017-11-06 16:42 | CP.PCM.PN ---
Subjective - Date & Time of Evaluation Date of Evaluation: 11/06/17 Time of Evaluation: 16:41 - Subjective Subjective: Nephrology Consultation Note: Assessment: Stable HTN emergency with pulmonary edema COPD Pneumonia Diabetic chronic Kidney Disease (E11.22) Hypertensive Chronic Kidney Disease (I12.0) End stage renal disease (N18.6) dependence on hemodialysis (Z99.2) (MWF) via AVF Anemia (D64.9), Hyperphosphatemia (E83.39), Secondary Hyperparathyroidism (E21.1 ), HTN (I12.0) ex smoker Plan: Will plan for HD tomorrow as ordered per MWF schedule. Continue with Nephrovite 1 tab/day. PRBC as needed for anemia. on EDMAR with dialysis as last Hb 7.6 Continue with phos binders, last phos level 5.7 BP control with meds as ordered. Patient not on RAAS shay as tendency for hyperkalemia. Glycemic control, Dialysis consistent diet Further work up/management as per primary team Dose meds/antibiotics for ESRD status. Avoid fleets enema/magnesium based laxatives. ID, Pulmonary and cardiology following Thanks for allowing me to participate in care of your patient. Will follow patient with you. Please call if any Qs. had d/w team Dr Aurelio Brar Office: [phone] ROS: doesn't feel good. c/o diffuse body aches and chest tightness. asking for more pain meds. denies chest pain. no nausea/vomiting. feels stomach is not okay either Physical Examination: General Appearance: comfortable, in no acute respiratory distress, co-operative . Vitals reviewed and noted as below Head; Atraumatic, normocephalic ENT: no ulcers no thrush. Tongue is midline. Oropharynx: no rash or ulcers. EYES: Pupils are equal, round and reactive to light accommodation. Eye muscles and extraocular movement intact. Sclera is anicteric. Neck; supple no lymphadenopathy, no thyromegaly or bruit Lungs: Normal respiratory rate/effort. Breath sounds bilateral equal and clear Heart: Normal rate. s1s2 normal. No rub or gallop. Extremities: no edema. No varicose veins Neurological: Patient is alert, awake and oriented to person, place and time. No focal deficit. Strength bilateral appropriate and equal Skin: Warm and dry. Normal turgor. No rash. Palpitation: Normal elasticity for age Abdomen: Abdomen is soft. Bowel sounds +. There is no abdominal tenderness, no guarding/rigidity or organomegaly Psych: normal insight and flat affect/mood MSK: no joint tenderness or swelling. Digits and nails normal, no deformity : kidney or bladder not palpable Access: AVF. Labs/imaging reviewed. Past medical history, past surgical history, family history, social history, allergy reviewed and noted as below Family Hx: no hx of CKD. Non contributory Objective - Vital Signs/Intake and Output Vital Signs (last 24 hours): Temp Pulse Resp BP Pulse Ox 98.8 F 84 13 184/85 H 80 L 11/06/17 16:00 11/06/17 15:28 11/06/17 15:28 11/06/17 15:28 11/06/17 12:28 Intake and Output: 11/06/17 11/06/17 06:59 18:59 Intake Total 760 660 Balance 760 660 - Medications Medications: Current Medications Acetaminophen (Tylenol 325mg Tab) 650 mg PO Q6 PRN PRN Reason: Pain, Mild (1-3) Albuterol/Ipratropium (Duoneb 3 Mg/0.5 Mg (3 Ml) Ud) 3 ml INH RQ4 [facility] Last Admin: 11/06/17 16:13 Dose: 3 ml Aspirin (Ecotrin) 81 mg PO DAILY [facility] Last Admin: 11/06/17 10:28 Dose: 81 mg Azithromycin (Zithromax) 500 mg PO DAILY [facility] PRN Reason: Protocol Last Admin: 11/06/17 10:28 Dose: 500 mg Calcium Acetate (Phoslo) 667 mg PO TIDCC [facility] Last Admin: 11/06/17 12:28 Dose: 667 mg Carvedilol (Coreg) 12.5 mg PO BID [facility] Last Admin: 11/06/17 10:29 Dose: 12.5 mg Clonidine HCl (Catapres) 0.3 mg PO Q8 [facility] Last Admin: 11/06/17 14:50 Dose: 0.3 mg Dextrose (Dextrose 50% Inj) 0 ml IV STAT PRN; Protocol PRN Reason: Hypoglycemia Protocol Dextrose (Glutose 15) 0 gm PO ONCE PRN; Protocol PRN Reason: Hypoglycemia Protocol Diphenhydramine HCl (Benadryl) 25 mg PO Q8 PRN PRN Reason: Itching / Pruritus Epoetin Cornelius (Procrit) 10,000 unit IV MWF [facility] Last Admin: 11/06/17 00:06 Dose: 10,000 unit Famotidine (Pepcid) 20 mg PO DAILY [facility] Last Admin: 11/06/17 10:28 Dose: 20 mg Gabapentin (Neurontin) 100 mg PO TID [facility] Last Admin: 11/06/17 14:23 Dose: 100 mg Glucagon (Glucagen Diagnostic Kit) 0 mg IM STAT PRN; Protocol PRN Reason: Hypoglycemia Protocol Heparin Sodium (Porcine) (Heparin) 5,000 units SC Q8 [facility] Last Admin: 11/06/17 14:23 Dose: 5,000 units Hydralazine HCl (Apresoline) 25 mg PO Q8 [facility] Last Admin: 11/06/17 14:26 Dose: 25 mg Vancomycin/Sodium Chloride (Vancomycin 1 Gm/Ns 200 Ml) 1 gm in 200 mls @ 133.333 mls/hr IVPB [facility] [place] PRN Reason: Protocol Stop: 11/10/17 09:01 Last Admin: 11/05/17 14:08 Dose: 133.333 mls/hr Dextrose (Dextrose 5% In Water 1000 Ml) 1,000 mls @ 0 mls/hr IV .Q0M PRN; Protocol; Per Protocol PRN Reason: Hypoglycemia Protocol Piperacillin Sod/Tazobactam Sod (Zosyn 2.25 Gm Iv Premix) 2.25 gm in 50 mls @ 100 mls/hr IVPB Q8 [facility] PRN Reason: Protocol Last Admin: 11/06/17 14:23 Dose: 100 mls/hr Insulin Human Regular (Novolin R) 0 unit SC ACHS [facility] PRN Reason: Protocol Last Admin: 11/06/17 12:28 Dose: 2 unit Metoclopramide HCl (Reglan) 5 mg PO 0600,1130,1630,2200 [facility] Last Admin: 11/06/17 12:28 Dose: 5 mg Nifedipine (Procardia Xl) 90 mg PO DAILY [facility] Last Admin: 11/06/17 10:29 Dose: 90 mg Prednisone (Prednisone Tab) 5 mg PO DAILY [facility] Last Admin: 11/06/17 10:29 Dose: 5 mg Rosuvastatin Calcium (Crestor) 5 mg PO HS [facility] Last Admin: 11/05/17 23:13 Dose: 5 mg Vitamin B Complex/Vit C/Folic Acid (Nephro-Anjelica) 1 tab PO 0800 [facility] Last Admin: 11/06/17 08:13 Dose: 1 tab - Labs Labs: 11/06/17 06:19 11/06/17 06:19
--- NOTE | 2017-11-06 23:21 | PN ---
DATE: 11/06/2017 SUBJECTIVE: The patient denies chest pain. She is experiencing generalized body aches. Shortness of breath has improved. PHYSICAL EXAMINATION: VITAL SIGNS: Blood pressure 184/85, heart rate 84, temperature 98.8, respirations 15. HEENT: Pale conjunctivae. CHEST: Right basilar rhonchi. HEART: S1, S2 regular. ABDOMEN: Soft. EXTREMITIES: Trace leg edema. LABORATORY DATA: Hemoglobin and hematocrit 7.6 and 22.1, white count 10.5, platelet count 129,000 which significant drop compared to yesterday of 169,000. Today's SMA-7: Sodium 140, potassium 4.9, chloride 98, CO2 of 29, glucose 192, BUN 26, creatinine 4.6. Blood cultures negative after 3 days. Today's chest x-ray revealed mild improvement of bibasilar patchy infiltrate. ASSESSMENT: 1. Status post volume overload. 2. Uncontrolled hypertension. 3. Diabetes mellitus. 4. End-stage renal disease, on hemodialysis. 5. Pneumonia. 6. Borderline troponin elevation. RECOMMENDATIONS: Continue current IV Zosyn and IV vancomycin. Continue oral Zithromax. Continue hydralazine 25 mg every 8 hours, clonidine 0.3 mg every 8 hours, Coreg 12.5 mg twice a day, aspirin 81 mg once a day, subcutaneous heparin 5000 units every 8 hours, PhosLo one tablet t.i.d., prednisone 5 mg once a day, Pepcid 20 mg orally once a day, Procrit 10,000 units Sunday, Sunday and Sunday. The patient did receive Dilaudid 0.5 mg IV push as a single dose after discussing the case with the HYPERION ADMINISTRATOR. The patient can be transferred to telemetry unit. The patient still refuses catheterization. Olayinka Brown MD
[2017-11-07] MEDS: Albuterol-Ipratrop 3 mg / 0.5 (3 ml) UD INH SCH ×5 (03:05→20:08)
[2017-11-07] MEDS: Piperacill/Tazo 2.25gm in Dex 2.25 GM/50 ML BAG IVPB SCH ×3 (05:20→22:15)
[2017-11-07 06:12] LABS: BASO # 0.1 K/uL (0.0-0.2); BASO % 0.7 % (0.0-2.0); EOS # 0.6 K/uL (0.0-0.7); EOS % 8.1 % (0.0-4.0); HEMOGLOBIN 7.1 g/dL (11.0-16.0); LYMPH # 0.9 K/uL (1.0-4.3); LYMPH % 11.6 % (20.0-40.0); MEAN CELL VOLUME 101.6 fL (81.0-99.0); MEAN CORPUSCULAR HEMOGLOBIN 34.3 pg (27.0-31.0); MEAN CORPUSCULAR HGB CONC 33.8 g/dL (33.0-37.0); MEAN PLATELET VOLUME 8.8 fL (7.2-11.7); MONO # 0.3 K/uL (0.0-0.8); MONO % 4.4 % (0.0-10.0); NEUT # 5.9 K/uL (1.8-7.0); NEUT % 75.2 % (50.0-75.0); RBC 2.08 Mil/uL (3.80-5.20); RED CELL DISTRIBUTION WIDTH 17.1 % (11.5-14.5); WHITE BLOOD COUNT 7.8 K/uL (4.8-10.8)
[2017-11-07 06:23] LABS: ALB/GLOB RATIO 1.2 (1.0-2.1); ALBUMIN 3.8 g/dL (3.5-5.0); CALCIUM 8.1 mg/dl (8.6-10.4)
[2017-11-07] MEDS: (Novolin R) Insulin Human Regular 100 units/ml vial SC SCH ×4 (07:45→21:21)
[2017-11-07] MEDS: Multivitamin Vitamin B Complex (Nephro-Vite) Tab PO SCH (08:31)
[2017-11-07] MEDS: NIFEdipine 90 mg ER Tab PO SCH (11:19)
[2017-11-07] MEDS: Vancomycin 1 gm/NS 200 ml 1 GM/200 ML BAG IVPB SCH (11:24)
[2017-11-07] MEDS ORDERED: HYDROmorphone 0.5 mg/0.5 ml ISec IVP ONE ×2 (11:49→23:45)
--- NOTE | 2017-11-07 12:15 | CP.PCM.PN ---
Subjective - Date & Time of Evaluation Date of Evaluation: 11/07/17 Time of Evaluation: 12:14 - Subjective Subjective: Nephrology Consultation Note: Assessment: Stable HTN emergency with pulmonary edema: resolved COPD Pneumonia, hyperkalemia Diabetic chronic Kidney Disease (E11.22) Hypertensive Chronic Kidney Disease (I12.0) End stage renal disease (N18.6) dependence on hemodialysis (Z99.2) (MWF) via AVF Anemia (D64.9), Hyperphosphatemia (E83.39), Secondary Hyperparathyroidism (E21.1 ), HTN (I12.0) ex smoker Plan: Will plan for HD today as ordered per MWF schedule. Continue with Nephrovite 1 tab/day. PRBC as needed for anemia (1 unit ordered for 11/07/17). on EDMAR with dialysis as last Hb 7.1 Continue with phos binders, last phos level 5.7 BP control with meds as ordered. Patient not on RAAS shay as tendency for hyperkalemia. Glycemic control, Dialysis consistent diet Further work up/management as per primary team Dose meds/antibiotics for ESRD status. Avoid fleets enema/magnesium based laxatives. ID, Pulmonary and cardiology following Thanks for allowing me to participate in care of your patient. Will follow patient with you. Please call if any Qs. had d/w team Dr Aurelio Brar Office: [phone] ROS: doesn't feel good. feels same. c/o diffuse body aches and chest tightness. asking for more pain meds. denies chest pain. no nausea/vomiting. feels stomach is not okay either Physical Examination: seen on HD General Appearance: comfortable, in no acute respiratory distress, co-operative . Vitals reviewed and noted as below Head; Atraumatic, normocephalic ENT: no ulcers no thrush. Tongue is midline. Oropharynx: no rash or ulcers. EYES: Pupils are equal, round and reactive to light accommodation. Eye muscles and extraocular movement intact. Sclera is anicteric. Neck; supple no lymphadenopathy, no thyromegaly or bruit Lungs: Normal respiratory rate/effort. Breath sounds bilateral equal and clear Heart: Normal rate. s1s2 normal. No rub or gallop. Extremities: no edema. No varicose veins Neurological: Patient is alert, awake and oriented to person, place and time. No focal deficit. Strength bilateral appropriate and equal Skin: Warm and dry. Normal turgor. No rash. Palpitation: Normal elasticity for age Abdomen: Abdomen is soft. Bowel sounds +. There is no abdominal tenderness, no guarding/rigidity or organomegaly Psych: normal insight and flat affect/mood MSK: no joint tenderness or swelling. Digits and nails normal, no deformity : kidney or bladder not palpable Access: AVF. Labs/imaging reviewed. Past medical history, past surgical history, family history, social history, allergy reviewed and noted as below Family Hx: no hx of CKD. Non contributory Objective - Vital Signs/Intake and Output Vital Signs (last 24 hours): Temp Pulse Resp BP Pulse Ox 97.9 F 81 14 157/48 H 94 L 11/07/17 12:10 11/07/17 12:10 11/07/17 12:10 11/07/17 12:10 11/07/17 12:05 Intake and Output: 11/07/17 11/07/17 06:59 18:59 Intake Total 60 424 Output Total 0 Balance 60 424 - Medications Medications: Current Medications Acetaminophen (Tylenol 325mg Tab) 650 mg PO Q6 PRN PRN Reason: Pain, Mild (1-3) Albuterol/Ipratropium (Duoneb 3 Mg/0.5 Mg (3 Ml) Ud) 3 ml INH RQ4 [facility] Last Admin: 11/07/17 11:13 Dose: 3 ml Aspirin (Ecotrin) 81 mg PO DAILY [facility] Last Admin: 11/07/17 11:15 Dose: 81 mg Azithromycin (Zithromax) 500 mg PO DAILY [facility] PRN Reason: Protocol Last Admin: 11/07/17 11:23 Dose: 500 mg Calcium Acetate (Phoslo) 667 mg PO TIDCC [facility] Last Admin: 11/07/17 11:55 Dose: 667 mg Carvedilol (Coreg) 12.5 mg PO BID [facility] Last Admin: 11/07/17 11:23 Dose: 12.5 mg Clonidine HCl (Catapres) 0.3 mg PO Q8 [facility] Last Admin: 11/07/17 05:19 Dose: 0.3 mg Dextrose (Dextrose 50% Inj) 0 ml IV STAT PRN; Protocol PRN Reason: Hypoglycemia Protocol Dextrose (Glutose 15) 0 gm PO ONCE PRN; Protocol PRN Reason: Hypoglycemia Protocol Diphenhydramine HCl (Benadryl) 25 mg PO Q8 PRN PRN Reason: Itching / Pruritus Epoetin Cornelius (Procrit) 10,000 unit IV MWF [facility] Last Admin: 11/06/17 00:06 Dose: 10,000 unit Famotidine (Pepcid) 20 mg PO DAILY [facility] Last Admin: 11/07/17 11:15 Dose: 20 mg Gabapentin (Neurontin) 100 mg PO TID [facility] Last Admin: 11/07/17 11:15 Dose: 100 mg Glucagon (Glucagen Diagnostic Kit) 0 mg IM STAT PRN; Protocol PRN Reason: Hypoglycemia Protocol Heparin Sodium (Porcine) (Heparin) 5,000 units SC Q8 [facility] Last Admin: 11/07/17 05:20 Dose: 5,000 units Hydralazine HCl (Apresoline) 25 mg PO Q8 [facility] Last Admin: 11/07/17 05:19 Dose: 25 mg Vancomycin/Sodium Chloride (Vancomycin 1 Gm/Ns 200 Ml) 1 gm in 200 mls @ 133.333 mls/hr IVPB [facility] PRN Reason: Protocol Stop: 11/10/17 09:01 Last Admin: 11/07/17 11:24 Dose: 133.333 mls/hr Dextrose (Dextrose 5% In Water 1000 Ml) 1,000 mls @ 0 mls/hr IV .Q0M PRN; Protocol; Per Protocol PRN Reason: Hypoglycemia Protocol Piperacillin Sod/Tazobactam Sod (Zosyn 2.25 Gm Iv Premix) 2.25 gm in 50 mls @ 100 mls/hr IVPB Q8 [facility] PRN Reason: Protocol Last Admin: 11/07/17 05:20 Dose: 100 mls/hr Insulin Human Regular (Novolin R) 0 unit SC ACHS [facility] PRN Reason: Protocol Last Admin: 11/07/17 11:56 Dose: 2 unit Metoclopramide HCl (Reglan) 5 mg PO 0600,1130,1630,2200 [facility] Last Admin: 11/07/17 11:15 Dose: 5 mg Nifedipine (Procardia Xl) 90 mg PO DAILY [facility] Last Admin: 11/07/17 11:19 Dose: 90 mg Prednisone (Prednisone Tab) 5 mg PO DAILY [facility] Last Admin: 11/07/17 11:17 Dose: 5 mg Rosuvastatin Calcium (Crestor) 5 mg PO HS [facility] Last Admin: 11/06/17 21:19 Dose: 5 mg Vitamin B Complex/Vit C/Folic Acid (Nephro-Anjelica) 1 tab PO 0800 [facility] Last Admin: 11/07/17 08:31 Dose: 1 tab - Labs Labs: 11/07/17 05:59 11/07/17 06:00
[2017-11-07] MEDS: Epoetin Alfa 10,000 unit/ml Dialysis IV SCH (12:17)
--- NOTE | 2017-11-07 20:02 | PN ---
DATE: 11/07/2017 SUBJECTIVE: The patient underwent hemodialysis today and received one unit of packed RBC transfusion. She denies any abdominal pain or nausea. No retrosternal chest pain and no reported arrhythmia. PHYSICAL EXAMINATION: VITAL SIGNS: Blood pressure 154/48, heart rate 81, temperature 97.9, respiration 14. HEENT: Pale conjunctivae. CHEST: Clear. HEART: S1 and S2, regular. ABDOMEN: Soft. EXTREMITIES: Trace leg edema. LABORATORY DATA: See SMA-7. Prior to hemodialysis, sodium 138, potassium 6, chloride 96, CO2 of 28, glucose 203, BUN 41, creatinine 6.4. Today's hemoglobin and hematocrit prior to hemodialysis were 7.1 and 21.1, white count 7.8, platelet count 114,000. ASSESSMENT 1. End-stage renal disease, on hemodialysis. 2. Status post volume overload. 3. Diastolic heart failure. 5. Borderline troponin elevation, consider underlying coronary artery disease. The patient refused cardiac catheterization. 5. Anemia. 6. Mild thrombocytopenia. 7. Hypertension. 8. Bilateral pneumonia. RECOMMENDATIONS: Continue current IV vancomycin and IV Zosyn. Continue oral Zithromax 500 mg daily. Continue hydralazine 25 mg every 8 hours, clonidine 0.3 mg every 8 hours, Coreg 12.5 mg once a day, Crestor 5 mg once a day, albuterol inhaler every 4 hours p.r.n., aspirin 81 mg once a day, subcutaneous heparin 5000 units every 8 hours. The patient will be evaluated by stage settings painter tomorrow. Olayinka Brown MD
--- NOTE | 2017-11-07 23:56 | CP.PCM.PN ---
Subjective - Date & Time of Evaluation Date of Evaluation: 11/07/17 Time of Evaluation: 23:56 - Subjective Subjective: AFEBRILE, LESS SHORT OF BREATH COMFORTABLE STILL COMPLAINS OF GENERALIZED PAIN Objective - Vital Signs/Intake and Output Vital Signs (last 24 hours): Temp Pulse Resp BP Pulse Ox 98.9 F 78 18 153/73 H 98 11/07/17 21:00 11/07/17 21:00 11/07/17 21:00 11/07/17 21:00 11/07/17 21:00 Intake and Output: 11/07/17 11/08/17 18:59 06:59 Intake Total 624 Balance 624 - Medications Medications: Current Medications Acetaminophen (Tylenol 325mg Tab) 650 mg PO Q6 PRN PRN Reason: Pain, Mild (1-3) Albuterol/Ipratropium (Duoneb 3 Mg/0.5 Mg (3 Ml) Ud) 3 ml INH RQ4 [facility] Last Admin: 11/07/17 20:08 Dose: 3 ml Aspirin (Ecotrin) 81 mg PO DAILY [facility] Last Admin: 11/07/17 11:15 Dose: 81 mg Azithromycin (Zithromax) 500 mg PO DAILY [facility] PRN Reason: Protocol Last Admin: 11/07/17 11:23 Dose: 500 mg Calcium Acetate (Phoslo) 667 mg PO TIDCC [facility] Last Admin: 11/07/17 17:13 Dose: 667 mg Carvedilol (Coreg) 12.5 mg PO BID [facility] Last Admin: 11/07/17 17:13 Dose: 12.5 mg Clonidine HCl (Catapres) 0.3 mg PO Q8 [facility] Last Admin: 11/07/17 22:14 Dose: 0.3 mg Dextrose (Dextrose 50% Inj) 0 ml IV STAT PRN; Protocol PRN Reason: Hypoglycemia Protocol Dextrose (Glutose 15) 0 gm PO ONCE PRN; Protocol PRN Reason: Hypoglycemia Protocol Diphenhydramine HCl (Benadryl) 25 mg PO Q8 PRN PRN Reason: Itching / Pruritus Epoetin Cornelius (Procrit) 10,000 unit IV MWF [facility] Last Admin: 11/07/17 12:17 Dose: 10,000 unit Famotidine (Pepcid) 20 mg PO DAILY [facility] Last Admin: 11/07/17 11:15 Dose: 20 mg Gabapentin (Neurontin) 100 mg PO TID [facility] Last Admin: 11/07/17 17:13 Dose: 100 mg Glucagon (Glucagen Diagnostic Kit) 0 mg IM STAT PRN; Protocol PRN Reason: Hypoglycemia Protocol Heparin Sodium (Porcine) (Heparin) 5,000 units SC Q8 [facility] Last Admin: 11/07/17 22:15 Dose: 5,000 units Hydralazine HCl (Apresoline) 25 mg PO Q8 [facility] Last Admin: 11/07/17 22:14 Dose: 25 mg Vancomycin/Sodium Chloride (Vancomycin 1 Gm/Ns 200 Ml) 1 gm in 200 mls @ 133.333 mls/hr IVPB MWF [facility] PRN Reason: Protocol Stop: 11/10/17 09:01 Last Admin: 11/07/17 11:24 Dose: 133.333 mls/hr Dextrose (Dextrose 5% In Water 1000 Ml) 1,000 mls @ 0 mls/hr IV .Q0M PRN; Protocol; Per Protocol PRN Reason: Hypoglycemia Protocol Piperacillin Sod/Tazobactam Sod (Zosyn 2.25 Gm Iv Premix) 2.25 gm in 50 mls @ 100 mls/hr IVPB Q8 [facility] PRN Reason: Protocol Last Admin: 11/07/17 22:15 Dose: 100 mls/hr Insulin Human Regular (Novolin R) 0 unit SC ACHS [facility] PRN Reason: Protocol Last Admin: 11/07/17 21:21 Dose: Not Given Metoclopramide HCl (Reglan) 5 mg PO 0600,1130,1630,2200 [facility] Last Admin: 11/07/17 22:14 Dose: 5 mg Nifedipine (Procardia Xl) 90 mg PO DAILY [facility] Last Admin: 11/07/17 11:19 Dose: 90 mg Prednisone (Prednisone Tab) 5 mg PO DAILY [facility] Last Admin: 11/07/17 11:17 Dose: 5 mg Rosuvastatin Calcium (Crestor) 5 mg PO HS [facility] Last Admin: 11/07/17 22:14 Dose: 5 mg Vitamin B Complex/Vit C/Folic Acid (Nephro-Anjelica) 1 tab PO 0800 [facility] Last Admin: 11/07/17 08:31 Dose: 1 tab - Labs Labs: 11/07/17 05:59 11/07/17 06:00 - Constitutional Appears: No Acute Distress - Head Exam Head Exam: NORMAL INSPECTION - ENT Exam ENT Exam: Mucous Membranes Moist - Neck Exam Neck Exam: Normal Inspection - Respiratory Exam Respiratory Exam: Rales (BIBASALIR), NORMAL BREATHING PATTERN - Cardiovascular Exam Cardiovascular Exam: REGULAR RHYTHM, +S1, +S2 - GI/Abdominal Exam GI & Abdominal Exam: Soft, Normal Bowel Sounds - Extremities Exam Extremities Exam: Normal Capillary Refill, Pedal Edema. absent: Calf Tenderness - Neurological Exam Neurological Exam: Awake, CN II-XII Intact, Oriented x3 - Psychiatric Exam Psychiatric exam: Normal Mood - Skin Skin Exam: Normal Color, Warm Assessment and Plan (1) Pulmonary edema Assessment & Plan: PATIENT FOR HEMODIALYSIS TODAY MWF. CHEST X-RAY 11/06/17-REVIEWED MILD IMPROVEMENT BY BASILAR PATCHY INFILTRATES. CONTINUE DIURESING cONTINUE iv ANTIBIOTICS.. Status: Acute (2) Pneumonia Status: Acute (3) Anemia Status: Acute (4) ESRD (end stage renal disease) Assessment & Plan: ON HEMODIALYSIS mwf. Status: Acute (5) Edema of breast Assessment & Plan: BREAST ULTRASOUND LT - NOTED +VE EXTENSIVE SUBCUTANEOUS EDEMA WITHOUT DRAINABLE FLUID COLLECTION OR ABSCESS ? lYMPHEDEMA/OR CELLULITIS. CONTINUE iv ANTIBIOTICS FOR NOW. pATIENT WILL NEED TO BE FOLLOWED UP BY MAMMOGRAM PER PMD IF EDEMA/CELLULITIS DOES NOT RESOLVE. Status: Acute (6) DM2 (diabetes mellitus, type 2) Status: Chronic
[2017-11-08] MEDS: Albuterol-Ipratrop 3 mg / 0.5 (3 ml) UD INH SCH ×3 (00:50→07:31)
[2017-11-08] MEDS: Piperacill/Tazo 2.25gm in Dex 2.25 GM/50 ML BAG IVPB SCH ×3 (05:12→22:38)
[2017-11-08 06:27] LABS: BASO # 0.1 K/uL (0.0-0.2); BASO % 0.7 % (0.0-2.0); EOS # 0.9 K/uL (0.0-0.7); EOS % 8.5 % (0.0-4.0); HEMOGLOBIN 8.4 g/dL (11.0-16.0); LYMPH # 1.1 K/uL (1.0-4.3); MEAN CELL VOLUME 97.9 fL (81.0-99.0); MEAN CORPUSCULAR HEMOGLOBIN 33.7 pg (27.0-31.0); MEAN CORPUSCULAR HGB CONC 34.4 g/dL (33.0-37.0); MEAN PLATELET VOLUME 9.1 fL (7.2-11.7); MONO # 0.5 K/uL (0.0-0.8); MONO % 4.4 % (0.0-10.0); NEUT # 8.3 K/uL (1.8-7.0); NEUT % 76.4 % (50.0-75.0); RBC 2.48 Mil/uL (3.80-5.20); RED CELL DISTRIBUTION WIDTH 17.8 % (11.5-14.5); WHITE BLOOD COUNT 10.9 K/uL (4.8-10.8)
[2017-11-08 06:42] LABS: ALB/GLOB RATIO 1.2 (1.0-2.1); ALBUMIN 3.9 g/dL (3.5-5.0); CALCIUM 8.3 mg/dl (8.6-10.4)
--- NOTE | 2017-11-08 07:20 | PCM.ANES ---
Anesthesia Emergent Intubation - Diagnosis Working Diagnosis:: Pain Consult - Consult Reason for Consult:: Pain consult note left in chart
[2017-11-08] MEDS: (Novolin R) Insulin Human Regular 100 units/ml vial SC SCH ×4 (08:54→22:39)
[2017-11-08] MEDS: Multivitamin Vitamin B Complex (Nephro-Vite) Tab PO SCH (09:05)
[2017-11-08] MEDS: NIFEdipine 90 mg ER Tab PO SCH (09:05)
--- NOTE | 2017-11-08 11:39 | CP.PCM.PN ---
Subjective - Date & Time of Evaluation Date of Evaluation: 11/08/17 Time of Evaluation: 11:37 - Subjective Subjective: Nephrology Consultation Note: Assessment: Stable HTN emergency with pulmonary edema: resolved COPD Pneumonia, hyperkalemia Diabetic chronic Kidney Disease (E11.22) Hypertensive Chronic Kidney Disease (I12.0) End stage renal disease (N18.6) dependence on hemodialysis (Z99.2) (MWF) via AVF Anemia (D64.9), Hyperphosphatemia (E83.39), Secondary Hyperparathyroidism (E21.1 ), HTN (I12.0) ex smoker Plan: Will plan for HD tomorrow as ordered per MWF schedule. Continue with Nephrovite 1 tab/day. PRBC as needed for anemia (1 unit ordered for 11/07/17). on EDMAR increased with dialysis as last Hb 8.4 Continue with phos binders, last phos level 5.2 BP control with meds as ordered. Patient not on RAAS shay as tendency for hyperkalemia. Glycemic control, Dialysis consistent diet Further work up/management as per primary team Dose meds/antibiotics for ESRD status. Avoid fleets enema/magnesium based laxatives. ID, Pulmonary and cardiology following. she was also seen by pain management Thanks for allowing me to participate in care of your patient. Will follow patient with you. Please call if any Qs. had d/w team Dr Aurelio Brar Office: [phone] ROS: doesn't feel good. feels same. c/o diffuse body aches and chest tightness. asking for more pain meds. no nausea/vomiting. feels stomach is not okay either overall upset Physical Examination: General Appearance: appears comfortable, in no acute respiratory distress, co- operative . speaking in full sentences Vitals reviewed and noted as below Head; Atraumatic, normocephalic ENT: no ulcers no thrush. Tongue is midline. Oropharynx: no rash or ulcers. EYES: Pupils are equal, round and reactive to light accommodation. Eye muscles and extraocular movement intact. Sclera is anicteric. Neck; supple no lymphadenopathy, no thyromegaly or bruit Lungs: Normal respiratory rate/effort. Breath sounds bilateral equal and clear Heart: Normal rate. s1s2 normal. No rub or gallop. Extremities: no edema. No varicose veins Neurological: Patient is alert, awake and oriented to person, place and time. No focal deficit. Strength bilateral appropriate and equal Skin: Warm and dry. Normal turgor. No rash. Palpitation: Normal elasticity for age Abdomen: Abdomen is soft. Bowel sounds +. There is no abdominal tenderness, no guarding/rigidity or organomegaly Psych: normal insight and upset MSK: no joint tenderness or swelling. Digits and nails normal, no deformity : kidney or bladder not palpable Access: AVF. Labs/imaging reviewed. Past medical history, past surgical history, family history, social history, allergy reviewed and noted as below Family Hx: no hx of CKD. Non contributory Objective - Vital Signs/Intake and Output Vital Signs (last 24 hours): Temp Pulse Resp BP Pulse Ox 98.6 F 77 18 163/50 H 98 11/08/17 01:00 11/08/17 05:00 11/08/17 05:00 11/08/17 09:02 11/08/17 05:00 Intake and Output: 11/08/17 11/08/17 06:59 18:59 Intake Total 350 Output Total 0 Balance 350 - Medications Medications: Current Medications Acetaminophen (Tylenol 325mg Tab) 650 mg PO Q6 PRN PRN Reason: Pain, Mild (1-3) Aspirin (Ecotrin) 81 mg PO DAILY [facility] Last Admin: 11/08/17 09:03 Dose: 81 mg Azithromycin (Zithromax) 500 mg PO DAILY [facility] PRN Reason: Protocol Last Admin: 11/08/17 09:05 Dose: 500 mg Calcium Acetate (Phoslo) 667 mg PO TIDCC [facility] Last Admin: 11/08/17 09:02 Dose: 667 mg Carvedilol (Coreg) 12.5 mg PO BID [facility] Last Admin: 11/08/17 09:02 Dose: 12.5 mg Clonidine HCl (Catapres) 0.3 mg PO Q8 [facility] Last Admin: 11/08/17 05:12 Dose: 0.3 mg Dextrose (Dextrose 50% Inj) 0 ml IV STAT PRN; Protocol PRN Reason: Hypoglycemia Protocol Dextrose (Glutose 15) 0 gm PO ONCE PRN; Protocol PRN Reason: Hypoglycemia Protocol Diphenhydramine HCl (Benadryl) 25 mg PO Q8 PRN PRN Reason: Itching / Pruritus Epoetin Cornelius (Procrit) 15,000 unit IV MWF [facility] Famotidine (Pepcid) 20 mg PO DAILY [facility] Last Admin: 11/08/17 09:04 Dose: 20 mg Gabapentin (Neurontin) 100 mg PO TID [facility] Last Admin: 11/08/17 09:04 Dose: 100 mg Glucagon (Glucagen Diagnostic Kit) 0 mg IM STAT PRN; Protocol PRN Reason: Hypoglycemia Protocol Heparin Sodium (Porcine) (Heparin) 5,000 units SC Q8 [facility] Last Admin: 11/08/17 05:12 Dose: 5,000 units Hydralazine HCl (Apresoline) 25 mg PO Q8 [facility] Last Admin: 11/08/17 05:12 Dose: 25 mg Vancomycin/Sodium Chloride (Vancomycin 1 Gm/Ns 200 Ml) 1 gm in 200 mls @ 133.333 mls/hr IVPB [facility] [place] PRN Reason: Protocol Stop: 11/10/17 09:01 Last Admin: 11/07/17 11:24 Dose: 133.333 mls/hr Dextrose (Dextrose 5% In Water 1000 Ml) 1,000 mls @ 0 mls/hr IV .Q0M PRN; Protocol; Per Protocol PRN Reason: Hypoglycemia Protocol Piperacillin Sod/Tazobactam Sod (Zosyn 2.25 Gm Iv Premix) 2.25 gm in 50 mls @ 100 mls/hr IVPB Q8 [facility] PRN Reason: Protocol Last Admin: 11/08/17 05:12 Dose: 100 mls/hr Insulin Human Regular (Novolin R) 0 unit SC ACHS [facility] PRN Reason: Protocol Last Admin: 11/08/17 08:54 Dose: 3 unit Metoclopramide HCl (Reglan) 5 mg PO 0600,1130,1630,2200 [facility] Last Admin: 11/08/17 05:12 Dose: 5 mg Nifedipine (Procardia Xl) 90 mg PO DAILY [facility] Last Admin: 11/08/17 09:05 Dose: 90 mg Prednisone (Prednisone Tab) 5 mg PO DAILY [facility] Last Admin: 11/08/17 09:05 Dose: 5 mg Rosuvastatin Calcium (Crestor) 5 mg PO HS [facility] Last Admin: 11/07/17 22:14 Dose: 5 mg Vitamin B Complex/Vit C/Folic Acid (Nephro-Anjelica) 1 tab PO 0800 [facility] Last Admin: 11/08/17 09:05 Dose: 1 tab - Labs Labs: 11/08/17 06:21 11/08/17 06:20
[2017-11-08] MEDS: HYDROmorphone 0.5 mg/0.5 ml ISec IVP PRN ×2 (12:30→19:00)
[2017-11-08] MEDS: Fluticasone Nasal 50 mcg/Spray NAS SCH ×2 (13:32→18:54)
--- NOTE | 2017-11-08 18:51 | PN ---
DATE: 11/08/2017 SUBJECTIVE: The patient is still experiencing generalized body pain. She is still unhappy with the care she is receiving in the hospital and she reports shortness of breath, but no retrosternal chest pain. PHYSICAL EXAMINATION: VITAL SIGNS: Blood pressure , heart rate 86, temperature 98.6, respirations 18. HEENT: Normocephalic. CHEST: Bibasilar rhonchi. HEART: S1 and S2 regular. EXTREMITIES: Trace leg edema. LABORATORY DATA: SMA-7; sodium 137, potassium 5.3, chloride 94, CO2 of 28, glucose 178, BUN 34, and creatinine 5.1. Today's hemoglobin and hematocrit 8.4 and 24.3, white count 10.9, platelet count 115,000. ASSESSMENT: 1. Status post volume overload. 2. Diastolic heart failure. 3. Borderline troponin elevation, consider non-ST elevation myocardial infarction. 4. End-stage renal disease, on hemodialysis. 5. Mild thrombocytopenia. 6. Anemia. 7. Uncontrolled diabetes mellitus and hypertension. RECOMMENDATIONS: Continue hydralazine 25 mg p.o. every 8 hours, clonidine 0.3 mg every 8 hours, Coreg 12.5 mg twice a day, Crestor 5 mg once a day, aspirin 81 mg once a day, subcutaneous heparin 5000 units every 8 hours, PhosLo one tablet t.i.d., Pepcid 20 mg once a day, Procardia XL 90 mg once a day, vancomycin 1 gm intravenously Sunday, Sunday, and Sunday, Zithromax 500 mg orally once a day, and Zosyn 2.25 gm intravenously every 8 hours. Olayinka Brown MD
--- NOTE | 2017-11-08 23:46 | CP.PCM.PN ---
Subjective - Date & Time of Evaluation Date of Evaluation: 11/08/17 Time of Evaluation: 23:46 - Subjective Subjective: Subjective: afebrile, APPEARS COMFORTABLE c/o generalized body aches. SEEN BY PAIN MANAGEMENT Patient for hemodialysis IN AM PER RENAL S/P [facility] TODAY11/05/17 ROS. HEENT : N. Resp : LESS COUGH, NO wheezing ,pleuritic CP ,or hemoptysis Cardio : No anginal CP, PND, orthopnea, palpitation GI : No abd.pain, n/v ,diarrhea or GI bleeding . 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 Musculoskel : No joint swelling , Derm : No rash Psych : Normal affect. Ext : No swelling ,calf pain PE. Pt. is alert awake in no distress. V.S As noted in the chart Head ,ear nose,throat and eyes : Normal. Neck : Supple with normal carotids. Lungs: MUCH CLEARING , NO RALES Heart : S1 & S2 normal . No murmur. Abd : SOFT ,with normal bowel sounds. Neuro : Moves all ext. with no localized deficit. Ext : No edema with intact pulses.Non tender calves LT. AVF WORKING Derm : No rashes or decubitus ulcer. LABS/RADIOLOGY: leukocytosis improving. BLOOD CULTURES 11/03/17 2 2 SETS NEGATIVE TO DATE. MRSA SCREEN -VE ASSESSMENT PULMONARY EDEMA/CHF PNEUMONIA LT BREAST LYMPHEDEMA/CELLULITIS LEUKOCYTOSIS-IMPROVING ANEMIA. ESRD ON HD MWF. DM -2 /PLAN : Continue IV vancomycin 1 g post each hemodialysis mwf CONTINUE iv ZOSYN 2.25 iv PIGGYBACK EVERY 8 HOURLY DE MIDLINE PLACED 11/05/17 ZITHROMAX 500 MG BY MOUTH ADDED NOTED 11/05/17 f/u cbc with differential in a.m. Case discussed with [facility]. F/U CXR POST HEMODIALYSIS IN A.M.. Objective - Vital Signs/Intake and Output Vital Signs (last 24 hours): Temp Pulse Resp BP Pulse Ox 98.1 F 78 20 175/73 H 20 L 11/08/17 15:44 11/08/17 22:26 11/08/17 15:44 11/08/17 22:26 11/08/17 22:26 Intake and Output: 11/08/17 11/09/17 18:59 06:59 Intake Total 600 50 Output Total 0 0 Balance 600 50 - Medications Medications: Current Medications Acetaminophen (Tylenol 325mg Tab) 650 mg PO Q6 PRN PRN Reason: Pain, Mild (1-3) Aspirin (Ecotrin) 81 mg PO DAILY [facility] Last Admin: 11/08/17 09:03 Dose: 81 mg Azithromycin (Zithromax) 500 mg PO DAILY [facility] PRN Reason: Protocol Last Admin: 11/08/17 09:05 Dose: 500 mg Calcium Acetate (Phoslo) 667 mg PO TIDCC [facility] Last Admin: 11/08/17 18:54 Dose: 667 mg Carvedilol (Coreg) 12.5 mg PO BID [facility] Last Admin: 11/08/17 18:54 Dose: 12.5 mg Clonidine HCl (Catapres) 0.3 mg PO Q8 [facility] Last Admin: 11/08/17 22:37 Dose: 0.3 mg Dextrose (Dextrose 50% Inj) 0 ml IV STAT PRN; Protocol PRN Reason: Hypoglycemia Protocol Dextrose (Glutose 15) 0 gm PO ONCE PRN; Protocol PRN Reason: Hypoglycemia Protocol Diphenhydramine HCl (Benadryl) 25 mg PO Q8 PRN PRN Reason: Itching / Pruritus Epoetin Cornelius (Procrit) 15,000 [place] [facility] Famotidine (Pepcid) 20 mg PO DAILY [facility] Last Admin: 11/08/17 09:04 Dose: 20 mg Fluticasone Propionate (Flonase) 1 spr MARTINA BID [facility] Last Admin: 11/08/17 18:54 Dose: 1 spr Gabapentin (Neurontin) 300 mg PO TID [facility] Last Admin: 11/08/17 23:43 Dose: 300 mg Glucagon (Glucagen Diagnostic Kit) 0 mg IM STAT PRN; Protocol PRN Reason: Hypoglycemia Protocol Hydralazine HCl (Apresoline) 25 mg PO Q8 [facility] Last Admin: 11/08/17 22:37 Dose: 25 mg Hydromorphone HCl (Dilaudid) 0.5 mg IVP Q6H PRN PRN Reason: Pain, severe (8-10) Last Admin: 11/08/17 19:00 Dose: 0.5 mg Vancomycin/Sodium Chloride (Vancomycin 1 Gm/Ns 200 Ml) 1 gm in 200 mls @ 133.333 mls/hr IVPB [facility] [place]N Reason: Protocol Stop: 11/10/17 09:01 Last Admin: 11/07/17 11:24 Dose: 133.333 mls/hr Piperacillin Sod/Tazobactam Sod (Zosyn 2.25 Gm Iv Premix) 2.25 gm in 50 mls @ 100 mls/hr IVPB Q8 [facility] PRN Reason: Protocol Last Admin: 11/08/17 22:38 Dose: 100 mls/hr Insulin Human Regular (Novolin R) 0 unit SC ACHS [facility] PRN Reason: Protocol Last Admin: 11/08/17 22:39 Dose: Not Given Metoclopramide HCl (Reglan) 5 mg PO 0600,1130,1630,2200 [facility] Last Admin: 11/08/17 22:38 Dose: 5 mg Nifedipine (Procardia Xl) 90 mg PO DAILY [facility] Last Admin: 11/08/17 09:05 Dose: 90 mg Prednisone (Prednisone Tab) 5 mg PO DAILY [facility] Last Admin: 11/08/17 09:05 Dose: 5 mg Rosuvastatin Calcium (Crestor) 5 mg PO HS [facility] Last Admin: 11/08/17 22:37 Dose: 5 mg Vitamin B Complex/Vit C/Folic Acid (Nephro-Anjelica) 1 tab PO 0800 [facility] Last Admin: 11/08/17 09:05 Dose: 1 tab - Labs Labs: 11/08/17 06:21 11/08/17 06:20 Assessment and Plan (1) Pulmonary edema Status: Acute (2) Pneumonia Status: Acute (3) Anemia Status: Acute (4) ESRD (end stage renal disease) Status: Acute (5) Edema of breast Status: Acute (6) DM2 (diabetes mellitus, type 2) Status: Chronic
[2017-11-09] MEDS: HYDROmorphone 0.5 mg/0.5 ml ISec IVP PRN ×3 (01:30→15:48)
[2017-11-09] MEDS: Piperacill/Tazo 2.25gm in Dex 2.25 GM/50 ML BAG IVPB SCH ×2 (05:45→14:35)
[2017-11-09 07:00] LABS: BASO # 0.1 K/uL (0.0-0.2); EOS # 1.2 K/uL (0.0-0.7); EOS % 9.7 % (0.0-4.0); HEMOGLOBIN 8.6 g/dL (11.0-16.0); LYMPH % 7.9 % (20.0-40.0); MEAN CELL VOLUME 99.4 fL (81.0-99.0); MEAN CORPUSCULAR HEMOGLOBIN 34.4 pg (27.0-31.0); MEAN CORPUSCULAR HGB CONC 34.6 g/dL (33.0-37.0); MEAN PLATELET VOLUME 9.5 fL (7.2-11.7); MONO # 0.5 K/uL (0.0-0.8); MONO % 4.1 % (0.0-10.0); NEUT # 9.5 K/uL (1.8-7.0); NEUT % 77.3 % (50.0-75.0); PLATELET COUNT 141 K/uL (130-400); RBC 2.49 Mil/uL (3.80-5.20); RED CELL DISTRIBUTION WIDTH 17.5 % (11.5-14.5); WHITE BLOOD COUNT 12.3 K/uL (4.8-10.8)
[2017-11-09] MEDS: (Novolin R) Insulin Human Regular 100 units/ml vial SC SCH ×3 (08:08→17:42)
[2017-11-09 08:55] LABS: ANISOCYTOSIS SLIGHT; BANDS 1 % (0-2); EOSINOPHIL 4 % (0-4); LYMPHOCYTE 3 % (20-40); MONOCYTE 3 % (0-10); NEUTROPHIL 89 % (50-75); PLATELET ESTIMATE NORMAL (NORMAL); TOTAL CELLS COUNTED 100
[2017-11-09] MEDS: Multivitamin Vitamin B Complex (Nephro-Vite) Tab PO SCH (09:33)
[2017-11-09] MEDS: Fluticasone Nasal 50 mcg/Spray NAS SCH ×2 (09:33→18:33)
[2017-11-09] MEDS: NIFEdipine 90 mg ER Tab PO SCH ×2 (09:34→12:31)
[2017-11-09] MEDS ORDERED: Epoetin Alfa 10,000 unit/ml Dialysis IV SCH ×2 (10:45→11:00)
[2017-11-09] MEDS ORDERED: Epoetin Alfa Dialysis 3000 UNIT/ML Inj IV SCH (10:45)
[2017-11-09] MEDS ORDERED: Epoetin Alfa Dialysis 2000 U/ML Inj IV SCH (10:45)
--- NOTE | 2017-11-09 13:12 | CP.PCM.PN ---
Subjective - Date & Time of Evaluation Date of Evaluation: 11/09/17 Time of Evaluation: 13:10 - Subjective Subjective: Nephrology Consultation Note: Assessment: Stable HTN emergency with pulmonary edema: resolved COPD Pneumonia, hyperkalemia Diabetic chronic Kidney Disease (E11.22) Hypertensive Chronic Kidney Disease (I12.0) End stage renal disease (N18.6) dependence on hemodialysis (Z99.2) (MWF) via AVF Anemia (D64.9), Hyperphosphatemia (E83.39), Secondary Hyperparathyroidism (E21.1 ), HTN (I12.0) ex smoker Plan: Will plan for HD today as ordered per MWF schedule. Continue with Nephrovite 1 tab/day. PRBC as needed for anemia (1 unit ordered for 11/07/17). on EDMAR increased with dialysis as last Hb 8.6 Continue with phos binders, last phos level 5.2 BP control with meds as ordered. Patient not on RAAS shay as tendency for hyperkalemia. increased hydralazine 100 mg tid Glycemic control, Dialysis consistent diet Further work up/management as per primary team Dose meds/antibiotics for ESRD status. Avoid fleets enema/magnesium based laxatives. ID, Pulmonary and cardiology following. she was also seen by pain management pt was offered extra HD tomorrow at [facility] (in case she gets d/c today), pt refused, saying it will be too much back to back if she stays in hospital, will offer extra HD tomorrow if she is agreeable pt was counselled and educated for oral salt/fluid restriction. she usually had high IDW gain. Thanks for allowing me to participate in care of your patient. Will follow patient with you. Please call if any Qs. had d/w team Dr Aurelio Brar Office: [phone] ROS: feels same. c/o diffuse body aches and chest tightness. no nausea/ vomiting. upset today stating that she feels still has extra fluid Physical Examination: seen on HD General Appearance: appears comfortable, in no acute respiratory distress, co- operative . speaking in full sentences Vitals reviewed and noted as below Head; Atraumatic, normocephalic ENT: no ulcers no thrush. Tongue is midline. Oropharynx: no rash or ulcers. EYES: Pupils are equal, round and reactive to light accommodation. Eye muscles and extraocular movement intact. Sclera is anicteric. Neck; supple no lymphadenopathy, no thyromegaly or bruit Lungs: Normal respiratory rate/effort. Breath sounds bilateral equal and clear Heart: Normal rate. s1s2 normal. No rub or gallop. Extremities: trace edema. No varicose veins Neurological: Patient is alert, awake and oriented to person, place and time. No focal deficit. Strength bilateral appropriate and equal Skin: Warm and dry. Normal turgor. No rash. Palpitation: Normal elasticity for age Abdomen: Abdomen is soft. Bowel sounds +. There is no abdominal tenderness, no guarding/rigidity or organomegaly Psych: normal insight and upset MSK: no joint tenderness or swelling. Digits and nails normal, no deformity : kidney or bladder not palpable Access: AVF. Labs/imaging reviewed. Past medical history, past surgical history, family history, social history, allergy reviewed and noted as below Family Hx: no hx of CKD. Non contributory Objective - Vital Signs/Intake and Output Vital Signs (last 24 hours): Temp Pulse Resp BP Pulse Ox 98.9 F 85 22 166/119 H 98 11/09/17 09:40 11/09/17 09:35 11/09/17 09:40 11/09/17 12:40 11/09/17 09:40 Intake and Output: 11/09/17 11/09/17 06:59 18:59 Intake Total 50 Output Total 0 Balance 50 - Medications Medications: Current Medications Acetaminophen (Tylenol 325mg Tab) 650 mg PO Q6 PRN PRN Reason: Pain, Mild (1-3) Aspirin (Ecotrin) 81 mg PO DAILY [facility] Last Admin: 11/09/17 09:33 Dose: Not Given Azithromycin (Zithromax) 500 mg PO DAILY [facility] PRN Reason: Protocol Last Admin: 11/08/17 09:05 Dose: 500 mg Calcium Acetate (Phoslo) 667 mg PO TIDCC [facility] Last Admin: 11/09/17 08:08 Dose: 667 mg Carvedilol (Coreg) 12.5 mg PO BID [facility] Last Admin: 11/09/17 12:33 Dose: 12.5 mg Clonidine HCl (Catapres) 0.3 mg PO Q8 [facility] Last Admin: 11/09/17 12:32 Dose: 0.3 mg Dextrose (Dextrose 50% Inj) 0 ml IV STAT PRN; Protocol PRN Reason: Hypoglycemia Protocol Dextrose (Glutose 15) 0 gm PO ONCE PRN; Protocol PRN Reason: Hypoglycemia Protocol Diphenhydramine HCl (Benadryl) 25 mg PO Q8 PRN PRN Reason: Itching / Pruritus Epoetin Cornelius (Procrit) 10,000 unit [place] [facility] Admin: 11/09/17 12:25 Dose: 10,000 unit Epoetin Cornelius (Procrit) 2,000 u IV [facility] Last Admin: 11/09/17 12:26 Dose: 2,000 u Epoetin Cornelius (Procrit) 3,000 unit IV [facility] Last Admin: 11/09/17 12:27 Dose: 3,000 unit Famotidine (Pepcid) 20 mg PO DAILY [facility] Last Admin: 11/09/17 09:33 Dose: Not Given Fluticasone Propionate (Flonase) 1 spr MARTINA BID [facility] Last Admin: 11/09/17 09:33 Dose: Not Given Gabapentin (Neurontin) 300 mg PO TID [facility] Last Admin: 11/09/17 09:33 Dose: Not Given Glucagon (Glucagen Diagnostic Kit) 0 mg IM STAT PRN; Protocol PRN Reason: Hypoglycemia Protocol Hydralazine HCl (Apresoline) 100 mg PO Q8 [facility] Hydromorphone HCl (Dilaudid) 0.5 mg IVP Q6H PRN PRN Reason: Pain, severe (8-10) Last Admin: 11/09/17 08:08 Dose: 0.5 mg Vancomycin/Sodium Chloride (Vancomycin 1 Gm/Ns 200 Ml) 1 gm in 200 mls @ 133.333 mls/hr [place]PB [facility] [place] Reason: Protocol Stop: 11/10/17 09:01 Last Admin: 11/07/17 11:24 Dose: 133.333 mls/hr Piperacillin Sod/Tazobactam Sod (Zosyn 2.25 Gm Iv Premix) 2.25 gm in 50 mls @ 100 mls/hr IVPB Q8 [facility] PRN Reason: Protocol Last Admin: 11/09/17 05:45 Dose: 100 mls/hr Insulin Human Regular (Novolin R) 0 unit SC ACHS [facility] PRN Reason: Protocol Last Admin: 11/09/17 08:08 Dose: 4 unit Metoclopramide HCl (Reglan) 5 mg PO 0600,1130,1630,2200 [facility] Last Admin: 11/09/17 05:41 Dose: 5 mg Nifedipine (Procardia Xl) 90 mg PO DAILY [facility] Last Admin: 11/09/17 12:31 Dose: 90 mg Prednisone (Prednisone Tab) 5 mg PO DAILY [facility] Last Admin: 11/09/17 09:33 Dose: Not Given Rosuvastatin Calcium (Crestor) 5 mg PO HS [facility] Last Admin: 11/08/17 22:37 Dose: 5 mg Vitamin B Complex/Vit C/Folic Acid (Nephro-Anjelica) 1 tab PO 0800 [facility] Last Admin: 11/09/17 09:33 Dose: Not Given - Labs Labs: 11/09/17 06:52 11/08/17 06:20
[2017-11-09 14:03] VITALS: RESP 20
--- NOTE | 2017-11-09 14:37 | RAD ---
HISTORY: COMPARISON: 11/06/2017. TECHNIQUE: Chest PA and lateral FINDINGS: LINES AND TUBES: None. LUNG AND PLEURA: The lungs are well inflated. There is now all diffuse haziness in the lungs with mild patchy diffuse airspace disease. HEART AND MEDIASTINUM: There is cardiomegaly and prominent central vasculature. The hilar and mediastinal contours are within normal limits. SKELETAL STRUCTURES: The bony structures are within normal limits for the patient's age. VISUALIZED UPPER ABDOMEN: Normal. OTHER FINDINGS: None. IMPRESSION: Findings are most compatible with interval development of pulmonary edema versus multifocal pneumonia.Follow-up after medical management is recommended to ensure complete resolution.
[2017-11-09] MEDS: Vancomycin 1 gm/NS 200 ml 1 GM/200 ML BAG IVPB SCH (15:47)
[2017-11-09 16:43] VITALS: BP 167/53; PULSE 87; TEMP 99.9; O2SAT 96
--- NOTE | 2017-11-09 17:11 | CP.PCM.PN ---
Subjective - Date & Time of Evaluation Date of Evaluation: 11/09/17 Time of Evaluation: 10:00 Objective - Vital Signs/Intake and Output Vital Signs (last 24 hours): Temp Pulse Resp BP Pulse Ox 99.9 F H 87 20 167/53 H 96 11/09/17 15:00 11/09/17 15:00 11/09/17 15:00 11/09/17 15:00 11/09/17 15:00 Intake and Output: 11/09/17 11/09/17 06:59 18:59 Intake Total 50 Output Total 0 Balance 50 - Medications Medications: Current Medications Acetaminophen (Tylenol 325mg Tab) 650 mg PO Q6 PRN PRN Reason: Pain, Mild (1-3) Aspirin (Ecotrin) 81 mg PO DAILY [facility] Last Admin: 11/09/17 09:33 Dose: Not Given Azithromycin (Zithromax) 500 mg PO DAILY [facility] PRN Reason: Protocol Last Admin: 11/09/17 14:07 Dose: Not Given Calcium Acetate (Phoslo) 667 mg PO TIDCC [facility] Last Admin: 11/09/17 14:06 Dose: Not Given Carvedilol (Coreg) 12.5 mg PO BID [facility] Last Admin: 11/09/17 12:33 Dose: 12.5 mg Clonidine HCl (Catapres) 0.3 mg PO Q8 [facility] Last Admin: 11/09/17 15:38 Dose: Not Given Dextrose (Dextrose 50% Inj) 0 ml IV STAT PRN; Protocol PRN Reason: Hypoglycemia Protocol Dextrose (Glutose 15) 0 gm PO ONCE PRN; Protocol PRN Reason: Hypoglycemia Protocol Diphenhydramine HCl (Benadryl) 25 mg PO Q8 PRN PRN Reason: Itching / Pruritus Epoetin Cornelius (Procrit) 10,000 unit IV MWF [facility] Last Admin: 11/09/17 12:25 Dose: 10,000 unit Epoetin Cornelius (Procrit) 2,000 u IV MWF [facility] Last Admin: 11/09/17 12:26 Dose: 2,000 u Epoetin Cornelius (Procrit) 3,000 unit IV MWF [facility] Last Admin: 11/09/17 12:27 Dose: 3,000 unit Famotidine (Pepcid) 20 mg PO DAILY [facility] Last Admin: 11/09/17 09:33 Dose: Not Given Fluticasone Propionate (Flonase) 1 spr MARTINA BID [facility] Last Admin: 11/09/17 09:33 Dose: Not Given Gabapentin (Neurontin) 300 mg PO TID [facility] Last Admin: 11/09/17 14:06 Dose: Not Given Glucagon (Glucagen Diagnostic Kit) 0 mg IM STAT PRN; Protocol PRN Reason: Hypoglycemia Protocol Hydralazine HCl (Apresoline) 100 mg PO Q8 [facility] Last Admin: 11/09/17 13:42 Dose: 100 mg Hydromorphone HCl (Dilaudid) 0.5 mg IVP Q6H PRN PRN Reason: Pain, severe (8-10) Last Admin: 11/09/17 15:48 Dose: 0.5 mg Vancomycin/Sodium Chloride (Vancomycin 1 Gm/Ns 200 Ml) 1 gm in 200 mls @ 133.333 mls/hr IVPB MWF [facility] PRN Reason: Protocol Stop: 11/10/17 09:01 Last Admin: 11/09/17 15:47 Dose: 133.333 mls/hr Piperacillin Sod/Tazobactam Sod (Zosyn 2.25 Gm Iv Premix) 2.25 gm in 50 mls @ 100 mls/hr IVPB Q8 [facility] PRN Reason: Protocol Last Admin: 11/09/17 14:35 Dose: Not Given Insulin Human Regular (Novolin R) 0 unit SC ACHS [facility] PRN Reason: Protocol Last Admin: 11/09/17 14:34 Dose: Not Given Metoclopramide HCl (Reglan) 5 mg PO 0600,1130,1630,2200 [facility] Last Admin: 11/09/17 15:47 Dose: 5 mg Nifedipine (Procardia Xl) 90 mg PO DAILY [facility] Last Admin: 11/09/17 12:31 Dose: 90 mg Prednisone (Prednisone Tab) 5 mg PO DAILY [facility] Last Admin: 11/09/17 09:33 Dose: Not Given Rosuvastatin Calcium (Crestor) 5 mg PO HS [facility] Last Admin: 11/08/17 22:37 Dose: 5 mg Vitamin B Complex/Vit C/Folic Acid (Nephro-Anjelica) 1 tab PO 0800 [facility] Last Admin: 11/09/17 09:33 Dose: Not Given - Labs Labs: 11/09/17 06:52 11/08/17 06:20
--- NOTE | 2017-11-10 10:14 | DS ---
CHIEF COMPLAINT: Shortness of breath. DISCHARGE DIAGNOSES: Congestive heart failure with fluid overload, chronic obstructive pulmonary disease, tracheobronchitis, hypertension, type 2 diabetes, end-stage renal disease, on hemodialysis. HISTORY OF PRESENT ILLNESS: This is a 42-year-old -Russian female with history of type 1 diabetes, on insulin; hypertension; CKD, on hemodialysis; peripheral vascular disease with multiple procedures done before. She is compliant with her diet, medication, and followup. She was discharged from [facility], and the patient came back with shortness of breath, cough, and congestion. The patient was initially treated with pneumonia with antibiotics at [facility] where the patient did well, and after careful consideration, she was discharged, but the patient is back with the same symptoms with cough, congestion, shortness of breath. The patient was admitted to the floor, started on steroid, antibiotics, ID evaluation, and the patient did well. She improved. The patient to go to subacute rehab. PHYSICAL EXAMINATION: LUNGS: Bilaterally decreased air entry. CVS: S1, S2 . ABDOMEN: Soft. ASSESSMENT AND PLAN: The patient is doing well. She is discharged. Sal Gamez MD
== END 2017-11-09 19:19 | DRG 291 ==
LOC: SUPCPDRO 22:20 → C.ER 22:20 → C.9E 11-03 04:09 → C.9I 11-03 04:44 → C.6T 11-08 09:56
PROVIDERS: ADMIT Internal Medicine; ATTEND Internal Medicine
PROC: 02HV33Z Insertion of Infusion Device into Superior Vena Cava, Percutaneous Approach (ICD-10-PCS; principal; 2017-11-05)
PROC: 5A1D70Z Performance of Urinary Filtration, Intermittent, Less than 6 Hours Per Day (ICD-10-PCS; 2017-11-06)
DX: I13.2 Hypertensive heart and chronic kidney disease with heart failure and with stage 5 chronic kidney disease, or end stage renal disease (principal); N18.6 End stage renal disease; J18.9 Pneumonia, unspecified organism; I50.30 Unspecified diastolic (congestive) heart failure; I16.1 Hypertensive emergency; J44.0 Chronic obstructive pulmonary disease with (acute) lower respiratory infection; N25.81 Secondary hyperparathyroidism of renal origin; D64.9 Anemia, unspecified; E11.51 Type 2 diabetes mellitus with diabetic peripheral angiopathy without gangrene; Z79.4 Long term (current) use of insulin; E11.43 Type 2 diabetes mellitus with diabetic autonomic (poly)neuropathy; K31.84 Gastroparesis; E11.22 Type 2 diabetes mellitus with diabetic chronic kidney disease; Z99.2 Dependence on renal dialysis; E78.00 Pure hypercholesterolemia, unspecified; D69.6 Thrombocytopenia, unspecified; E87.5 Hyperkalemia; E11.65 Type 2 diabetes mellitus with hyperglycemia; I27.20 Pulmonary hypertension, unspecified; N61.0 Mastitis without abscess; Z87.891 Personal history of nicotine dependence; Z90.49 Acquired absence of other specified parts of digestive tract; I25.2 Old myocardial infarction

== ENCOUNTER 2018-02-06 15:27 | Emergency (ER) | payer MEDICARE, OTHER ==
[2018-02-06 16:15] VITALS: BMI 30.7
[2018-02-06 16:19] VITALS: TEMP 98.2
--- NOTE | 2018-02-06 18:10 | C.PDOC ---
History Of Present Illness 42-year-old female, PMHx includes Diabetes, on dialysis (//Sun), presents to the emergency department with complaints of worsening ulceration to left heel. As per patient, Dr Bran is taking care of the ulcer, but it has pro gressively worsened, prompting visit. Patient had an X-Ray in office, which did not show any osteomylitis. Patent saw Dr Bran yesterday, and was advised to come to ED for evaluation. pt denies fever, numbness/weakness, or any other associated symptoms. no other complaints this time. Pts last dialysis was today. Time Seen by Provider: 02/06/18 17:44 Chief Complaint (Nursing): Abnormal Skin Integrity History Per: Patient History/Exam Limitations: no limitations Past Medical History Reviewed: Historical Data, Nursing Documentation, Vital Signs Vital Signs: Last Vital Signs Temp 98.2 F 02/06/18 16:15 Pulse 95 H 02/06/18 16:15 Resp 18 02/06/18 16:15 BP 129/76 02/06/18 16:15 Pulse Ox 100 02/06/18 16:15 - Medical History PMH: Anemia, Depression, Diabetes, Gastritis (diabetic gastroparesis), HTN, Hypercholesterolemia, Pneumonia, End Stage Renal Disease (Dialysis M-W-F), Chronic Kidney Disease Surgical History: Cholecystectomy (2010) - [facility] Procedures (11/03/17) BONE BIOPSY NEC (04/07/13) CATARAC PHACOEMULS/ASPIR (09/23/14) CONTRAST ARTERIOGRAM NEC (07/17/13) CONTRAST ARTERIOGRAM-LEG (04/07/13) DIALYSIS ARTERIOVENOSTOM (04/07/13) DILATION OF LEFT SUBCLAVIAN VEIN, PERCUTANEOUS APPROACH (10/16/17) DRAINAGE OF LEFT BREAST, OPEN APPROACH (10/27/16) ESOPHAGOGASTRODUODENOSCOPY [EGD] W/CLOSED BIOPSY (09/19/13) EXCIS DEBRIDE OF WOUND, INFECT, OR BURN (07/17/13) EXCISION OF LEFT BREAST, OPEN APPROACH, DIAGNOSTIC (10/27/16) EXCISION OF STOMACH, ENDO, DIAGN (09/13/16) EXCISION OF STOMACH, PYLORUS, ENDO, DIAGN (03/14/15) EXTRACTION OF LEFT FOOT SKIN, EXTERNAL APPROACH (10/07/16) EXTRACTION OF LEFT LOWER LEG SKIN, EXTERNAL APPROACH (06/16/16) HEMODIALYSIS (01/01/15) INCIS W REM OF FORIEGN BODY OR DEV FROM SKIN & SUBCUT TISSUE (05/27/13) INDIVID PSYCHOTHERAP NEC (04/20/13) INJECT/INFUSE NEC (11/09/13) INSERT LENS AT CATAR EXT (09/23/14) INSERTION OF INFUSION DEV INTO SUP VENA CAVA, PERC APPROACH (11/03/17) INSPECTION OF UPPER INTESTINAL TRACT, ENDO (03/10/16) OCCUPATIONAL THERAPY (04/30/13) OTHER GROUP THERAPY (04/20/13) OTHER SKIN & SUBQ I D (07/17/13) PERFORMANCE OF URINARY FILTRATION, MULTIPLE (01/11/17) PERFORMANCE OF URINARY FILTRATION, SINGLE (10/04/16) PHYSICAL THERAPY NEC (04/30/13) REMOVAL OF INFUSION DEV FROM GREAT VESSEL, DANCE STUDIO MANAGER APPROACH (10/16/16) REMOVAL OF INFUSION DEVICE FROM GREAT VESSEL, PERC APPROACH (10/27/16) TRANSFUSE NONAUT RED BLOOD CELLS IN PERIPH VEIN, PERC (06/10/15) ULTRASONOGRAPHY OF RIGHT AND LEFT HEART, TRANSESOPHAGEAL (06/19/15) ULTRASONOGRAPHY OF SUPERIOR VENA CAVA, GUIDANCE (10/07/16) Family History: States: Diabetes - Social History Hx Tobacco Use: No Hx Alcohol Use: No Hx Substance Use: No - Immunization History Hx Tetanus Toxoid Vaccination: Yes Hx Influenza Vaccination: No Hx Pneumococcal Vaccination: No Review Of Systems Constitutional: Negative for: Fever, Chills Musculoskeletal: Positive for: Foot Pain Neurological: Negative for: Weakness, Numbness Physical Exam - Physical Exam Appears: Non-toxic, No Acute Distress Skin: Warm, Dry, No Rash Head: Atraumatic, Normacephalic Eye(s): bilateral: Normal Inspection Nose: Normal Oral Mucosa: Moist Lips: Normal Appearing Neck: Normal ROM Chest: Symmetrical Cardiovascular: Rhythm Regular, No Murmur Respiratory: Normal Breath Sounds, No Accessory Muscle Use Extremity: Normal ROM, No Deformity, Other (Left heel: ulcer with thick, dry egde, with granulation tissue in center. No odor. No weeping.) Neurological/Psych: Oriented x3, Normal Speech ED Course And Treatment - Laboratory Results Result Diagrams: 02/06/18 20:10 02/06/18 20:10 Lab Interpretation: Abnormal (HCO3 34, BUN 13, Cr 3.9, glucose 145, Alk Phos 225) O2 Sat by Pulse Oximetry: 100 Progress Note: Patient was seen in ED by Podiatry resident and case discussed with Dr Bran. There is no evidence of osteomyelitis or significant infection. Patient is cleared to follow up as an out patient for wound care. Disposition Counseled Patient/Family Regarding: Studies Performed, Diagnosis, Need For Followup - Disposition Referrals: Huan Bran DPM [Staff Provider] - Disposition: HOME/ ROUTINE Disposition Time: 21:01 Condition: STABLE Instructions: Wound Care (DC) Forms: [employer] (Haitian) - Clinical Impression Clinical Impression: Chronic ulcer of left foot, ESRD on hemodialysis - Scribe Statement The provider has reviewed the documentation as recorded by the Scribe (Connie Carcamo) Provider Attestation: All medical record entries made by the Scribe were at my direction and personally dictated by me. I have reviewed the chart and agree that the record accurately reflects my personal performance of the history, physical exam, medical decision making, and the department course for this patient. I have also personally directed, reviewed, and agree with the discharge instructions and disposition.
[2018-02-06] MEDS ORDERED: Oxycodone/Acetaminophen 5/325 mg Tab PO STA (18:21)
[2018-02-06] MEDS ORDERED: Oxycodone/Acetaminophen 5/325 mg Tab ONE ×2 (18:31→18:32)
[2018-02-06 20:25] LABS: BASO % 0.4 % (0.0-2.0); EOS # 0.6 K/uL (0.0-0.7); EOS % 5.3 % (0.0-4.0); LYMPH # 1.7 K/uL (1.0-4.3); LYMPH % 15.6 % (20.0-40.0); MEAN CORPUSCULAR HEMOGLOBIN 31.6 pg (27.0-31.0); MEAN CORPUSCULAR HGB CONC 33.6 g/dL (33.0-37.0); MEAN PLATELET VOLUME 8.6 fL (7.2-11.7); MONO # 0.5 K/uL (0.0-0.8); MONO % 4.7 % (0.0-10.0); NEUT # 7.9 K/uL (1.8-7.0); NRBC % 0.1 % (0.0-2.0); RBC 4.97 Mil/uL (3.80-5.20); RED CELL DISTRIBUTION WIDTH 15.3 % (11.5-14.5); WHITE BLOOD COUNT 10.7 K/uL (4.8-10.8)
[2018-02-06 20:29] LABS: HEMOGLOBIN 15.7 g/dL (11.0-16.0); MEAN CELL VOLUME 94.1 fL (81.0-99.0)
[2018-02-06 20:42] LABS: ALB/GLOB RATIO 0.9 (1.0-2.1); ALBUMIN 5.2 g/dL (3.5-5.0); CALCIUM 10.5 mg/dl (8.6-10.4)
[2018-02-06 22:25] VITALS: BP 128/74; PULSE 78; RESP 20; O2SAT 98
--- NOTE | 2018-02-07 13:08 | CP.PCM.CON ---
History of Present Illness - History of Present Illness History of Present Illness: Podiatry consult note for Dr. Bran: 42 yo female seen and evaluated in the ED for left foot heel stage 2 ulcer. Patient is AAOx3 and NAD. States she has had this ulcer for a long time and has been seeing Dr. Bran for treatment. States that it was closed and recently she found a piece of skin that fell off and saw that her foot now had an open ulcer which had been previously closed. She states that she has had a lot of pain in her foot to the area of the ulcer. She states Dr. Bran told her to come in to the ED and get an MRI to look for bone infection. She denies N/V/F/C/SOB/CP and has no other pedal complaints at this time. PMH CKD, DM, HTN, ESRD, peripheral neuropathy, retinopathy PSH cholecystectomy All ketorolac, morphine, tramadol Past Patient History - Infectious Disease Hx of Infectious Diseases: None - Past Medical History & Family History Past Medical History?: Yes - Past Social History Smoking Status: Former Smoker - CARDIAC Hx Hypercholesterolemia: Yes Hx Hypertension: Yes - PULMONARY Hx Pneumonia: Yes - HEENT Hx HEENT Problems: Yes Hx Cataracts: Yes (09/23/14 left) - RENAL Hx Chronic Kidney Disease: Yes - ENDOCRINE/METABOLIC Hx Diabetes Mellitus Type 2: Yes - HEMATOLOGICAL/ONCOLOGICAL Hx Anemia: Yes - INTEGUMENTARY Hx Dermatological Problems: Yes Other/Comment: right great toe amputation 2009 - MUSCULOSKELETAL/RHEUMATOLOGICAL Hx Musculoskeletal Disorders: Yes Hx Falls: Yes - GASTROINTESTINAL Hx Gastritis: Yes (diabetic gastroparesis) - GENITOURINARY/GYNECOLOGICAL Hx Genitourinary Disorders: Yes Other/Comment: renal failure - PSYCHIATRIC Hx Depression: Yes Hx Substance Use: No - SURGICAL HISTORY Hx Cholecystectomy: Yes (2010) - ANESTHESIA Hx Anesthesia: Yes Hx Anesthesia Reactions: No Hx Malignant Hyperthermia: No Meds Allergies/Adverse Reactions: Allergies Allergy/AdvReac Type Severity Reaction Status Date / Time ketorolac tromethamine Allergy Verified 10/16/17 06:55 [From Toradol] morphine Allergy Verified 10/16/17 06:55 tramadol Allergy RASH Verified 10/16/17 06:55 Physical Exam - Constitutional Appears: Well, Non-toxic, No Acute Distress - Head Exam Head Exam: ATRAUMATIC, NORMOCEPHALIC - Extremities Exam Additional comments: Vasc: DP pulse 1/4, PT pulses nonpalpable b/l; cap refill <3 seconds to all digits; mild edema present about left heel; temp gradient warm to warm from proximal to distal Derm: stage 2 ulcer present at the left heel; measures 4.2cm x 3.8cm x 0.3cm; no PTB, no malodor, no drainage, no pus, mild erythema periwound, no streaking; no clinical signs of infection Ortho: equinus deformity present at ankle joint b/l; mild pain on palpation to the left heel wound neuro: gross and protective sensation diminished b/l - Neurological Exam Neurological exam: Alert, Oriented x3 - Psychiatric Exam Psychiatric exam: Normal Affect, Normal Mood Results - Vital Signs Recent Vital Signs: Last Vital Signs Temp 98.2 F 02/06/18 16:15 Pulse 78 02/06/18 22:24 Resp 20 02/06/18 22:24 BP 128/74 02/06/18 22:24 Pulse Ox 98 02/06/18 22:24 - Labs Result Diagrams: 02/06/18 20:10 02/06/18 20:10 Labs: Laboratory Results - last 24 hr 02/06/18 02/06/18 20:10 20:10 WBC 10.7 RBC 4.97 Hgb 15.7 D Hct 46.8 MCV 94.1 D MCH 31.6 H MCHC 33.6 RDW 15.3 H Plt Count 220 MPV 8.6 Neut % (Auto) 74.0 Lymph % (Auto) 15.6 L Hickman % (Auto) 4.7 Eos % (Auto) 5.3 H Baso % (Auto) 0.4 Neut # (Auto) 7.9 H Lymph # (Auto) 1.7 Hickman # (Auto) 0.5 Eos # (Auto) 0.6 Baso # (Auto) 0.0 Sodium 144 Potassium 4.0 Chloride 94 L Carbon Dioxide 34 H Anion Gap 20 BUN 13 Creatinine 3.9 H Est GFR ( Amer) 15 Est GFR (Non-Af Amer) 13 Random Glucose 145 H Calcium 10.5 H Total Bilirubin 0.6 AST 32 ALT 24 Alkaline Phosphatase 228 H D Total Protein 10.7 H Albumin 5.2 H D Globulin 5.5 H Albumin/Globulin Ratio 0.9 L Assessment & Plan - Assessment and Plan (Free Text) Assessment: 42 yo female with pmhx of diabetes, ESRD, HTN, retinopathy, peripheral neuropathy seen and evaluated in ED for stage 2 ulcer on left heel Plan: Patient seen and evaluated Discussed in detail with Dr. Bran Charts and labs reviewed - afebrile and absent leukocytosis MRI taken and reviewed - no significant findings suggestive of osteomyelitis Patient demonstrated understanding of findings Dressed wound with betadine soaked gauze and DSD Will continue to follow up with Dr. Bran in his clinic and make an appointment for early next week Patient stable for discharge from podiatry standpoint Thank you for consult and patient care - Date & Time Date: 02/06/18 Time: 23:25
--- NOTE | 2018-02-07 13:41 | MRI ---
MRI left foot HISTORY: Heel wound. Evaluate for osteomyelitis. COMPARISON: X-ray dated 01/31/2018 FINDINGS: Prominent wound noted within the soft tissues overlying the posterior calcaneus. The wound appears to extend to the level of the subchondral bone of the posterior calcaneus. No gross signal abnormality within the posterior calcaneus to suggest an acute osteomyelitis. There is however some minimal reactive edema noted at the posterior medial cortex of the calcaneus which may represent some mild early acute inflammatory and or infectious changes. Continued interval follow-up of this region would be helpful for further evaluation if clinically indicated. Bony productive change and or osteophytosis at the posterior and superior aspect of calcaneus. Increased signal within the distal Achilles tendon at its insertion on the posterior superior calcaneus suggestive for a mild tendinopathy. Thickening of the plantar fascia measuring up to 1.1 centimeters suggestive for a moderate plantar fascitis. Sinus tarsi grossly preserved. Small ankle joint effusion. Degenerative changes in the midfoot with dorsal spurring noted at the talonavicular joint space. Some splaying with increased signal seen within the distal portion of the anterior tibial tendon as demonstrated on series 5 images 13 through 15 which may represent an underlying tendinopathy. Clinical correlation. Remainder of the anterior extensor tendons appear preserved. Mild tenosynovitis of the posterior tibial tendon sheath. Peroneal tendons are preserved. Anterior and posterior tibiofibular ligaments are preserved. Chronic partial tearing of the anterior talofibular ligament. Some fraying and increased signal seen within the deep fibers of the deltoid ligament suggestive for chronic partial tearing. Mild diffuse edema of the visualized foot musculature. This is nonspecific in nature but could be due to developing atrophy. Impression: 1. Prominent wound noted within the soft tissues overlying the posterior calcaneus. The wound appears to extend to the level of the subchondral bone of the posterior calcaneus. No gross signal abnormality within the posterior calcaneus to suggest an acute osteomyelitis. There is however some minimal reactive edema noted at the posterior medial cortex of the calcaneus which may represent some mild early acute inflammatory and or infectious changes. Continued interval follow-up of this region would be helpful for further evaluation if clinically indicated. 2. Bony productive change and or osteophytosis at the posterior and superior aspect of calcaneus. 3. Increased signal within the distal Achilles tendon at its insertion on the posterior superior calcaneus suggestive for a mild tendinopathy. 4. Thickening of the plantar fascia measuring up to 1.1 centimeters suggestive for a moderate plantar fascitis. 5. Small ankle joint effusion. 6. Degenerative changes in the midfoot with dorsal spurring noted at the talonavicular joint space. 7. Some splaying with increased signal seen within the distal portion of the anterior tibial tendon as demonstrated on series 5 images 13 through 15 which may represent an underlying tendinopathy. Clinical correlation. Remainder of the anterior extensor tendons appear preserved. Mild tenosynovitis of the posterior tibial tendon sheath. 8. Chronic partial tearing of the anterior talofibular ligament. 9. Some fraying and increased signal seen within the deep fibers of the deltoid ligament suggestive for chronic partial tearing. 10. Mild diffuse edema of the visualized foot musculature. This is nonspecific in nature but could be due to developing atrophy. These findings were preliminarily reported by Dr. Lexa Welch at 7:57 p.m. on 02/06/2018 from [id number] rad.
== END 2018-02-06 22:25 | disposition home or self-care (01) ==
LOC: C.ER 15:27
DX: L97.429 Non-pressure chronic ulcer of left heel and midfoot with unspecified severity (principal); E11.22 Type 2 diabetes mellitus with diabetic chronic kidney disease; N18.6 End stage renal disease; Z99.2 Dependence on renal dialysis